=== PATIENT | female | born 1975 | race Caucasian/White ===

== ENCOUNTER 2019-01-23 12:30 | Observation (INO) | payer OTHER, SELFPAY ==
--- NOTE | 2019-01-03 17:39 | PCM.HP.BLA ---
History and Physical Date of Admission: 01/23/19 Pre-Op History and Physical ? HPI: The patient is a 43 year old female presenting for pre-operative visit. She is scheduled for?total vaginal hysterectomy, bilateral salpingectomy, uterosacral ligament fixation, mid urethral sling, possible posterior repair and cystoscopy, for?menorrhagia, dysmenorrhea, symptomatic uterovaginal prolapse, and stress urinary incontinence.???Procedure discussed along with risks, benefits and complications. ?Other alternatives discussed for management. Consent form signed??Yes.? PAST?MEDICAL?HISTORY PAST MEDICAL HISTORY Diagnosis Date ? Anxiety ? ? Chest pain ? ? Depression ? ? Ear infection ? ? Migraines ? ? PTSD (post-traumatic stress disorder) ? ? Sciatica ? ? UTI (lower urinary tract infection) ? ? ? PAST?SURGICAL?HISTORY PAST SURGICAL HISTORY Procedure Laterality Date ? APPENDECTOMY ? 1982 ? LIGATE FALLOPIAN TUBE ? 06/2007 ? MAMMO MAMMOGRAM ? 07/20/2010 ? PAST SURGICAL HISTORY OF ? 09/19 ? Micro Disectomy ??L5S1 ? PAST SURGICAL HISTORY OF Left 2013 ? Left wrist surgery ? REDUCTION OF LARGE BREAST ? 09/17 ? Bilateral ? ? CURRENT?MEDICATIONS Current Outpatient Medications Medication Sig Dispense Refill ? ARIPiprazole (ABILIFY) 2 mg tablet ? buPROPion XL (WELLBUTRIN XL) 300 mg 24 hr tablet Take 300 mg by mouth once daily. ? 0 ? traZODone (DESYREL) 50 mg tablet TAKE 1/2 TO 3 TABLET BY MOUTH AT BEDTIME NEEDED ? 0 ? cloNIDine HCl (CATAPRES) 0.1 mg tablet TAKE 1 TABLET BY MOUTH EVERYDAY AT BEDTIME ? 0 ? PROAIR HFA 90 mcg/actuation inhaler 2 (TWO) PUFF FOUR TIMES DAILY/PRN ? 1 ? buPROPion XL (WELLBUTRIN XL) 150 mg 24 hr tablet Take 150 mg by mouth once daily. ? 0 ? LORazepam (ATIVAN) 0.5 mg tab Take 0.5 mg by mouth twice daily as needed. ? 0 ? escitalopram oxalate (LEXAPRO) 20 mg tablet 1 1/2 TABLET ONCE A DAY ? 0 ? QUEtiapine (SEROQUEL) 50 mg tablet TAKE 1 TO 2 TABLET AT BEDTIME ? 0 ? No current facility-administered medications for this visit.? ? ALLERGIES:?Seasonal Allergies ? PERSONAL HISTORY:? 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 control/protection: Tubal Ligation ??Lifestyle ?Physical activity: ?Days per week: Not on file ?Minutes per session: Not on file ?Stress: Not on file ??Relationships ?Social connections: ?Talks on phone: Not on file ?Gets together: Not on file ?Attends yazdanism service: Not on file ?Active member of club or organization: Not on file ?Attends meetings of clubs or organizations: Not on file ?Relationship status: Not on file ?Intimate partner violence: ?Fear of current or ex partner: Not on file ?Emotionally abused: Not on file ?Physically abused: Not on file ?Forced sexual activity: Not on file ??Other Topics ?Concerns: ?Not on file ??Social History Narrative ?Not on file ? FAMILY HISTORY:? FAMILY?HISTORY FAMILY HISTORY Problem Relation Age of Onset ? Allergies Mother ? ? Anesthesia Mother ? ? Headache Mother ? ? Hypertension Father ? ? Heart Father ? ? Headache Daughter ? ? other (Pneumonia) Daughter ? ? Diabetes Maternal Grandmother ? ? Emphysema Maternal Grandmother ? ? Breast Cancer Maternal Grandmother ? ? Alcohol/Drug Paternal Grandfather ? ? Headache Daughter ? ? Allergies Sister ? ? Headache Sister ? ? Emphysema Maternal Grandfather ? ? Psychiatry Maternal Uncle ?Suicide ? Headache Son ? ? other (RSV) Son ? ? REVIEW OF SYMPTOMS: GENERAL: denies fevers or chills ENDOCRINOLOGY: has not been on steroids Cardiology : denies palpitations or chest pain Respiratory: denies SOB or cough Hematology: denies history of prolonged bleeding or easy bruising or VTE Allergy: Denies history of personal or family history of allergy to anesthesia ? ? PHYSICAL EXAMINATION: ? VITALS:?Last menstrual period 12/07/2018. ? GENERAL:??The patient is well nourished, well hydrated in no acute distress. ?, The patient is oriented to time, place, and person. NECK:?Supple. No lynphadenopathy, normal thyroid, no thyromegaly. LUNGS:?Clear to auscultation bilaterally. no wheezes, rhonchi or rales HEART:?Regular rate and rhythm, Normal heart sounds and No murmurs or gallops ? PELVIC US 12/05/18 results: Overall impression: Uterus anteverted. ?Normal size and contour. ?Endometrial thickness 12.7 mm. ?No gross endometrial lesions. ?There is a anterior fibroid intramural in location measuring 3.6 cm in the greatest dimension. Right and left ovaries appear normal no free fluid in the cul-de-sac. Follow- up: Follow-up as clinically indicated. Indication: Menorrhagia: Pain. History: . Last menstrual period: 11/15/2018. 21th day of cycle. Cycle length: ?27 days to 28 days. Obstetric History: Details on previous pregnancies: Living children >=37W: 3. Gynecological History: Bleeding: abnormal. Contraception: sterilization. Gynecological Ultrasonography: Uterus: anteverted. Size: Longitudinal 89 mm. Anterio- posterior 40 mm. Transverse 51 mm. Volume: 95.1 ?ml. Fibroids: Fibroid 1: Size: 34 mm x 27 mm x 36 mm. Type: anterior. Position: mid-uterus. Endometrium thickness total: 12.7 mm. Comment: Single anterior fibroid [id number] made it difficult to see much of the uterus. Right Ovary: normal. Visible. Outline: smooth. Morphology: normal morphology. Right Ovary size: 30 mm x 16 mm x 20 mm. Volume: 5.0 ml. Left Ovary: normal. Visible. Outline: smooth. Morphology: normal morphology. Left Ovary size: 30 mm x 18 mm x 22 mm. Volume: 6.2 ml. Cul de Sac / Pouch of Brad: no free fluid visible.? ? ? IMPRESSION:?Menorrhagia, dysmenorrhea, symptomatic uterovaginal prolapse, suspected adenomyosis, intramural uterine fibroids, stress urinary incontinence ? PLAN:???The risks/benefits/alternatives and personal involved for the planned?TVH, possible salpingectomy if tubal remnants are accessible, uterosacral ligament fixation, anterior repair, possible posterior repair,?mid urethral sling and cystoscopy?were reviewed with the patient. Her questions were answered to her satisfaction and she desires to proceed. ?Consent was signed. ?I reviewed with her postop instructions and expectations. ? ? I have reviewed and updated past medical and surgical history, medications and allergies? Johanny Vivas M.D.
[2019-01-23] VITALS (17 sets, daily range): BP systolic 93–142; BP diastolic 67–96; PULSE 70–96; RESP 16–18; TEMP 36.4–37; O2SAT 94–100; BMI 36.7
[2019-01-23 05:50] LABS: Internal QC Validated? YES +Cl - CLEAR BKGD; Pregnancy, Urine Negative Negative
[2019-01-23 06:21] LABS: Hematocrit 41.4 % (37-47); Hemoglobin 13.5 g/dL (12.0-15.0); Mean Corp Hgb Conc 32.6 g/dL (32-36); Mean Corpuscular Hgb 28.8 pg (27.0-32.0); Mean Corpuscular Volume 88.3 fL (81-99); Platelet Count 241 K/mm3 (150-450); RBC Distribution Width CV 13.2 % (11.6-14.6); RBC Distribution Width SD 42.9 fl (35.1-43.9); Red Blood Count 4.69 M/mm3 (4.2-5.4)
[2019-01-23] MEDS: dexAMETHasone 10 MG/ML Vial 8 MG IV (06:21)
[2019-01-23] MEDS: Magnesium Sulfate 4gm/100mL 4 GM/100 ML IV.SOLN. IV (06:22)
[2019-01-23] MEDS: Lactated Ringers 1,000 ML 100 ML IV (06:23)
[2019-01-23] MEDS: Enoxaparin 40 MG/0.4 ML Syringe SC (06:23)
[2019-01-23] MEDS: Gabapentin 600 MG Tablet PO (06:24)
[2019-01-23] MEDS: Celecoxib 200 MG Capsule 400 MG PO (06:24)
[2019-01-23] MEDS: Scopolamine 1mg/72hr Patch 1 PATCH TRANSDERM. (06:24)
[2019-01-23] MEDS: Acetaminophen 500 MG Tablet 1000 MG PO ×2 (06:24→18:04)
[2019-01-23] MEDS: Phenazopyridine 95 MG Tablet 190 MG PO (06:25)
[2019-01-23 06:56] LABS: Bedside Glucose 82 mg/dL (70-110)
[2019-01-23] MEDS: Lactated Ringers 1,000 ML 40 ML IV (07:00)
--- NOTE | 2019-01-23 07:30 | UT_PTH ---
PATIENT: MARQUITA WHATLEY I LOC: [facility] U#:[id number] AGE/SX: 43/F ROOM: [facility]315 RE01/23/[address]: Dr. Johanny Vivas MD : 1975 BED: 1 DIS: 01/24/2019 SPEC #: [id number] RECD: 01/23/19 10:45 STATUS: LEI REGeovany #: [id number] BUZZ: 01/23/19 07:[address]: Johanny Vivas DEPT: SURGICAL PATHOLOGY RECD BY: Ramsey Dickerson ENTERED: 01/23/19 11:11 SP TYPE: UTERUS OTHR DR: No Primary Care Phys Tissues: Uterus, NOS Procedures: Surgery Specimen Level V HEADER OPERATION: ERAS, vaginal hysterectomy, uterosacral ligament fix PRE-OP DIAGNOSIS: Menorrhagia, dysmenorrhea, symptomatic uterovaginal prolapse, suspected adenomyosis, intramural uterine fibroids, stress urinary incontinence TISSUE SUBMITTED: Uterus MICROSCOPIC DIAGNOSIS Uterus, hysterectomy: Cervix - squamous metaplasia, minimal chronic inflammation and nabothian cysts. Endometrium -secretory endometrium with focal cystic change. Myometrium - focal superficial adenomyosis. AM:anika 01/24/19 COMMENT Case has been reviewed in consultation with Dr. Barber who concurs with the above diagnosis. IDC:SJ MICROSCOPIC DESCRIPTION Slides are reviewed. GROSS DESCRIPTION Received in fixative is one container labeled with the patient's name and designated uterus. The specimen consists of a uterus with attached cervix measuring 11.5 x 5 x 3.7 cm and weighing 82 gm. The ectocervix is oval in contour and free of mass lesions. The endocervical canal measures 5 cm in length and is grossly unremarkable. The triangular endometrial cavity measures 3.5 x 3.5 cm. The velvety, light huitron endometrium measures up to 0.2 cm in thickness. The myometrium measures 2 cm in average thickness and is free of mass lesions. Computer Terminal Operator sections are submitted in six cassettes as follows: 1 - anterior cervix, 2 - posterior cervix, 3 & 4 - anterior uterine wall, 5 & 6 - posterior uterine wall. / AM:anika 01/23/19 TC:5 CPT: 46594
[2019-01-23] MEDS: Cefazolin 2 GM in 0.9% Normal Saline 100 ML IV (07:35)
--- NOTE | 2019-01-23 10:31 | PCM.OPRPT ---
Report of Operation Date of Procedure: 01/23/19 Pre-Operative Diagnosis: Menorrhagia, dysmenorrhea, symptomatic uterovaginal prolapse, stress urinary incontinence Post-Operative Diagnosis: Same Surgery/Procedure Performed:: Total vaginal hysterectomy with uterosacral ligament fixation, posterior repair, TVT mid urethral sling and cystoscopy Description of Surgical Findings:: Normal-appearing cervix and vagina. Uterus prolapsed to 1 cm above the introitus, small midline cystocele, grade 2 midline rectocele, normal appearing bladder. Ovaries and tubes were palpable and small but very high in the pelvis. social worker masters: Macey Huang social worker masters: higinio page Type of Anesthesia:: General Anesthesiologist: Juan Pablo Bhatia Special Medications: none Specimen's removed: Uterus and cervix Drains: Richardson Estimated Blood Loss (mL): 250 Fluids Replaced: 2400 Description of Procedure: The patient was taken to the operating room where she was prepped and draped in the normal sterile fashion in the dorsal lithotomy position. A weighted speculum was placed in the vagina and the anterior lip of the cervix was grasped with a Ruth clamp. The vaginal epithelium was infiltrated circumferentially around the cervix with [1% Xylocaine solution]. An incision was made [around the entire cervix] with a scalpel and the vaginal epithelium was dissected back with blunt and sharp dissection. The anterior colpotomy incision was made sharply. Entry into the anterior cul-de-sac was confirmed by visualization of the uterine fundus and bowel behind the uterus. [The posterior colpotomy was made with the Sanchez scissors. The posterior peritoneum was secured to the posterior vaginal cuff with an [id number] 0 Vicryl suture. The Oneyda retractor was placed in the posterior colpotomy incision.] The uterosacral ligaments were clamped with Chioma clamps transected and suture ligated on both sides and excellent hemostasis of the pedicles was noted. [The cardinal ligaments were clamped transected and suture ligated. The remainder of the cardinal ligament with the uterine arteries was clamped transected and suture ligated.] The utero-ovarian ligaments and tubes were clamped transected and suture ligated. The uterus was brought out through the colpotomy incision intact. Of note, even after clamping and cutting several pedicles, there was not a lot of significant descent of the uterus. An attempt was made to visualize the ovaries. I was unable to definitively visualize them. I did palpate them both and they were small and very high. I could visualize the tip of the left one and part of the left tube, but did not feel I could safely remove them because of how high they were in the pelvis. The decision was made to use leave the tubes and ovaries intact. The pedicles were all examined again and found to be hemostatic. At this point, the decision was made to proceed with the uterosacral ligament fixation. 2-0 PDS was placed to the posterior vaginal cuff, through the uterosacral ligament through the anterior cuff. An 0 Prolene was placed through the vaginal epithelium near the posterior cuff but not through the entire vaginal epithelium, reefed across the uterosacral ligament a little more cephalad and then through the vaginal epithelium anteriorly. The same procedure was performed on the contralateral side. A cystoscopy was then performed in the bladder both ureteral jets were noted without and then with tension on the uterosacral ligament fixation sutures. The utero sacral ligament fixation sutures were then tied down. The epithelium was closed over the midline and over the clean suture with interrupted 0 Vicryl [id number] sutures. Hemostasis was then noted the vaginal cuff. Good support was noted. The TVT procedure was then performed. Mid urethra was identified and the vaginal epithelium under it was grasped with Petrona clamps and the vaginal epithelium was infiltrated with 1% Xylocaine with dilute epinephrine solution. An incision was made under the mid urethra and dissected laterally under the pubic ramus on both sides. The midline at the symphysis pubis was marked and then 2 cm on each side was marked with a marking pen. I hydrodissected behind the symphysis with 30 cc of injectable saline on both sides of the midline. After guide was used to remove the bladder to the patient's left side and the right trocar was placed with the TVT trocar. This was walked up behind the symphysis aiming towards the ipsilateral shoulder until I exited in the skin 2 cm to left of the midline directly cephalad to the pubic ramus. The bladder was taken to the opposite side and the left trocar was advanced in a similar fashion behind the symphysis pubis and out through the skin where it had been marked with a marker. A cystoscopy was then performed at this time. The bladder was intact. There were no perforations. Both ureteral jets were noted. Cystoscopy was ended and the Richardson placed to straight drain. The sling was secured up against the mid urethra using the Metzenbaum scissors as a spacer so as not to impinge upon the urethra. The excess mesh was trimmed at the suprapubic incisions and those incisions were closed with skin glue. Some Erma was placed in the mid urethral incision and pressure was held for 2 minutes and then hemostasis was noted. The vaginal epithelium overlying the mesh was reapproximated with 2-0 Vicryl suture. Mesh was lying flat against the mid urethra and no buttonholing of the vagina in either vaginal fornix was noted. Skin incisions were closed with skin glue. Posterior repair was then performed. The vaginal epithelium at 4 and 7:00 was grasped with Allis clamps. The perineal skin and vaginal epithelium infiltrated with the lidocaine with epinephrine solution. An incision was made over the perineal body and a antonieta-shaped wedge was removed. The vaginal epithelium in the midline was then underlying with the Metzenbaum scissors and Allis clamps were used to secure it and grasped the sides. The vaginal epithelium was dissected off the underlying tissue with blunt and sharp dissection. The underlying tissue was imbricated with interrupted 0 Vicryl sutures. The perineal body was then reapproximated with 0 Vicryl sutures. Excess vaginal epithelium was removed. The vaginal epithelium was then reapproximated with 2-0 Vicryl suture in a running standard fashion by Dr. De Anda. Vagina was packed with iodoform gauze after a vaginal sweep was completed by Dr. De Anda. I performed the entire procedure with assistance other than as dictated above. No qualified residents are available for this case. The Richardson was left to straight drain. All sponge lap and needle counts were correct. Patient was awakened and taken to theher recovery room in stable condition. Grafts/Implants Used: TVT exact - Complications none - Admit VTE Documentation VTE Present on Admission: No VTE Mechan Device Prophylaxis: SCD's VTE Pharm Prophylaxis ordered?: Yes
[2019-01-23] MEDS: Ketorolac 30 MG/ML Syringe IV ×2 (13:00→17:59)
[2019-01-23] MEDS: oxyCODONE 5 MG Tablet PO ×2 (16:27→21:30)
[2019-01-23] MEDS: Lactated Ringers 1,000 ML 70 ML IV (17:00)
[2019-01-23] MEDS: ARIPiprazole 2 MG Tablet PO (21:30)
[2019-01-23] MEDS: traZODone 50 MG Tablet PO (21:30)
[2019-01-23] MEDS: Docusate Sodium 100 MG Capsule PO (21:30)
[2019-01-24] MEDS: Ketorolac 30 MG/ML Syringe IV ×3 (00:02→12:27)
[2019-01-24] MEDS: Acetaminophen 500 MG Tablet 1000 MG PO ×2 (00:02→05:57)
[2019-01-24 03:07] VITALS: BP 116/60; PULSE 91; RESP 18; TEMP 37.3; O2SAT 97
[2019-01-24] MEDS: Lactated Ringers 1,000 ML 70 ML IV (05:58)
[2019-01-24 06:24] LABS: Hematocrit 33.4 % (37-47); Hemoglobin 10.8 g/dL (12.0-15.0); Mean Corp Hgb Conc 32.3 g/dL (32-36); Mean Corpuscular Hgb 29.1 pg (27.0-32.0); Mean Platelet Vol. 10.2 fl (6.2-12.0); Platelet Count 221 K/mm3 (150-450); RBC Distribution Width CV 13.3 % (11.6-14.6); RBC Distribution Width SD 43.8 fl (35.1-43.9); Red Blood Count 3.71 M/mm3 (4.2-5.4); White Blood Count 12.9 K/mm3 (4.4-11.0)
[2019-01-24 06:37] VITALS: O2SAT 96
--- NOTE | 2019-01-24 08:49 | PCM.PN.OB ---
Subjective: Seen at bedside doing well. Patient denies any flatus at this time. Denies nausea, vomiting, chest pain or shortness of breath. Richardson catheter in place output is adequate. She reports good pain control. Rates pain 2 out of 10 at this time. Is tolerating a regular diet. - Physical Exam General: Alert, Oriented x3 Lungs: Clear to auscultation, Normal air movement Cardiovascular: Regular rate, Regular Rhythm Abdomen: Bowel Sounds Present, Soft, Non-Distended, Hypoactive Bowel Sounds Vital Signs Temp Pulse Resp BP Pulse Ox 99.1 F 91 18 116/60 96 01/24/19 03:07 01/24/19 03:07 01/24/19 03:07 01/24/19 03:07 01/24/19 06:37 Oxygen Flow Rate (L/min) 6 Oxygen Delivery Method Room Air Weight: 100.1 kg Body Mass Index (BMI) 36.7 Intake and Output for Last 24 Hours 01/22/19 01/23/19 01/24/19 23:59 23:59 23:59 Intake Total 4134.33 / 4134.33 1907.67 / 1907.67 Output Total 600 / 600 2800 / 2800 Balance 3534.33 / 3534.33 -892.33 / -892.33 Laboratory Tests Past 24 Hrs 01/24/19 05:57 WBC 12.9 H RBC 3.71 L Hgb 10.8 L Hct 33.4 L MCV 90.0 MCH 29.1 MCHC 32.3 RDW Std Deviation 43.8 RDW Coeff of Inessa 13.3 Plt Count 221 MPV 10.2 Medical Necessity - Tobacco Use Smoking Status: Never smoker Tobacco Use: Non-smoker Assessment/Plan Postop day #1 status post total vaginal hysterectomy, uterosacral ligament fixation, TVT sling, cystoscopy, posterior repair Routine care Pain management DC Richardson Voiding trial Monitor vaginal bleeding DC home after able to void. If not able to void after 6 hours will go home with a Richardson to leg bag.
--- NOTE | 2019-01-24 08:53 | DCINST_ITS ---
Discharge Diet: No Restrictions Discharge Activity: Return to Normal Activity, May Not Drive - while taking narcotic pain medications., May Shower May resume sexual activity in: 6-8 weeks Call your doctor if your incision/area has: Continuous Slow Oozing, Sudden Increased Bleeding, Increased Pain/ Swelling, Increased Redness, Foul Smelling Discharge Call your doctor if you observe: Fever of 101 or Higher, Inability to urinate, Inability to have a bowel movement, Using more than one pad per hour Allergies/Adverse Reactions: Allergies pregabalin [From Lyrica] Allergy (Verified 01/23/19 05:59) high bp Sulfa (Sulfonamide Antibiotics) Allergy (Verified 01/23/19 05:59) Hives plastic tape Adverse Reaction (Uncoded 01/16/19 14:36) blisters Medications to take at Discharge Albuterol IH (ProAir) [Proair Hfa] 1 - 2 puff INHALATION Q6H PRN PRN 01/16/19 Aripiprazole [Abilify] 2 mg PO QHS 01/16/19 Bupropion HCl [Wellbutrin Xl] 450 mg PO DAILY 01/16/19 Escitalopram Oxalate [Lexapro] 10 mg PO DAILY 01/16/19 Lorazepam [Ativan] 0.5 mg PO BID PRN PRN 01/16/19 Quetiapine Fumarate [Seroquel Xr] 50 mg PO PRN PRN 01/16/19 traZODone [Desyrel] 50 mg PO QHS 01/16/19 Docusate Sodium [Colace] 100 mg PO BID capsule 01/24/19 Insulin Lispro [Humalog KwikPen] 0 unit SC Q4H PRN PRN insuln.pen 01/24/19 Primary Care Physician: Care Physician,No Primary [Primary Care Provider] - Test Results: Test results from this visit will be discussed in further detail at your follow- up appointment, if applicable. Please Follow Up With: Johanny Vvias MD When: as scheduled
[2019-01-24 09:00] VITALS: BP 116/66; PULSE 89; RESP 18; TEMP 37.2; O2SAT 99
[2019-01-24 10:00] VITALS: BP 121/83; PULSE 91; RESP 20; TEMP 37; O2SAT 100
[2019-01-24] MEDS: Escitalopram Oxalate 10 MG Tablet PO (10:12)
[2019-01-24] MEDS: Docusate Sodium 100 MG Capsule PO (10:12)
[2019-01-24] MEDS: buPROPion (XL) 150 MG TABLET.XL 450 MG PO (10:13)
[2019-01-24] MEDS: LORazepam 0.5 MG Tablet PO (10:21)
--- NOTE | 2019-01-24 12:10 | PCM.PN.BLA ---
Progress Note Came to evaluate patient for vaginal bleeding. Nursing reports that she has had 2 gushes of bright red bleeding. Patient states she notices the bleeding when she is coughing or moving around. I evaluated the patient with speculum at bedside good visualization of the vaginal cuff. There were clots that were evacuated from the vagina. Once he evacuated the clots visualization was excellent. Upon Valsalva and coughing there was no active bleeding appreciated. There is no pooling of blood. The cuff is intact. The anterior vaginal tissue where the sling was placed was intact no signs of hematoma. The posterior repair was intact no active bleeding. At this time I had the patient get up walk around the room continue to cough. She said she felt more of a gush. I reexamined her put the speculum back and there was no active bleeding. There were no clots in the vagina. Patient did have leaking urine upon coughing. Patient thought that that was also a gush of blood I reassured her that that was urine. At this time I think I will continue to monitor the patient its possible that she had clots that were stuck in the vaginal cuff area and were expelled during coughing episodes. If the bleeding persists I discussed with the patient that I may need to take her back to the operating room for exam under anesthesia and possible repair but at this time I do not see anything active. Keep her n.p.o. status at this time patient states otherwise she feels well. She has voided twice without difficulty. Her pain is well controlled. If Bleeding resolves she will likely be discharged later this afternoon.
[2019-01-24] MEDS: 0.9% NaCl Peripheral Flush Adult/Peds IV (12:28)
[2019-01-24 13:13] LABS: Hematocrit 32.1 % (37-47); Hemoglobin 10.4 g/dL (12.0-15.0); Mean Corp Hgb Conc 32.4 g/dL (32-36); Mean Corpuscular Volume 89.4 fL (81-99); Mean Platelet Vol. 10.1 fl (6.2-12.0); Platelet Count 217 K/mm3 (150-450); RBC Distribution Width CV 13.5 % (11.6-14.6); RBC Distribution Width SD 44.4 fl (35.1-43.9); Red Blood Count 3.59 M/mm3 (4.2-5.4); White Blood Count 12.2 K/mm3 (4.4-11.0)
[2019-01-24 14:58] VITALS: BP 129/85; PULSE 98; RESP 18; TEMP 36.8; O2SAT 98
== END 2019-01-24 15:02 | disposition home or self-care (01) ==
LOC: SDC 14:49
PROVIDERS: Obstetrics & Gynecology; Admitting Provider Obstetrics & Gynecology; Referring Provider Obstetrics & Gynecology; Visit Provider Obstetrics & Gynecology
PROC: (CPT 58260; principal; 2019-01-23 07:10)
DX: N81.4 Uterovaginal prolapse, unspecified (principal); N88.8 Other specified noninflammatory disorders of cervix uteri; N39.3 Stress incontinence (female) (male); N94.6 Dysmenorrhea, unspecified; D25.1 Intramural leiomyoma of uterus; N92.0 Excessive and frequent menstruation with regular cycle; F41.9 Anxiety disorder, unspecified; F32.9 Major depressive disorder, single episode, unspecified; Z79.899 Other long term (current) drug therapy; J45.909 Unspecified asthma, uncomplicated; Z87.891 Personal history of nicotine dependence
CPT/HCPCS: 57250; 57288; 58260; 36415; 81025; 82962; 85027; 86850; 86900; 86901; 88307; 96374; 96376; 99218; J7120; A4216; G0378; G0379; J2405

== ENCOUNTER 2019-01-31 23:33 | Observation (INO) | payer OTHER, SELFPAY ==
[2019-01-23 06:01] VITALS: BMI 36.7
[2019-01-31 23:35] VITALS: BP 112/75; PULSE 102; RESP 16; TEMP 36.7; O2SAT 98; BMI 35.9
--- NOTE | 2019-02-01 00:27 | ED.VIS.GEN ---
History of Present Illness Chief Complaint: Vag Bleeding Narrative: This patient is a 43-year-old female who presents with vaginal bleeding. She is about 1 week postop total hysterectomy. On postop day 1 she did have heavy vaginal bleeding with clots. She states that they were able to get this controlled and her bleeding was doing well until yesterday. She was seen in the office both yesterday and today. It sounds like she may have a cautery. They felt the bleeding was coming from the sutures of the vaginal cuff. She also states she believes some type of temperature was used. Tonight her bleeding became heavy again. She checked her blood pressure at home which was borderline hypotensive with a systolic of 92 and a 96. She was slightly tachycardic in the 90s. She spoke to her low altitude air defense officer again who advised her to come here to the emergency department. She states she felt dizzy as if she may pass out. No chest pain no shortness of breath no known coagulopathies. She did have one episode of nonbloody nonbilious emesis today. Past Medical History - Allergies and Home Meds Allergies/Adverse Reactions: Allergies pregabalin [From Lyrica] Allergy (Verified 01/31/19 23:38) high bp Sulfa (Sulfonamide Antibiotics) Allergy (Verified 01/31/19 23:38) Hives plastic tape Adverse Reaction (Uncoded 01/31/19 23:38) blisters Primary Care Physician: Johanny Vivas MD [Primary Care Provider] - Surgical History: hysterectomy Smoking Status: Never smoker Review of Systems All systems negative except as indicated General: Denies: Fever Cardiovascular: Reports: - - Near syncope. Denies: Chest pain Respiratory: Denies: Dyspnea Gastrointestinal: Reports: Nausea, Vomiting Genitourinary: Reports: - - Heavy vaginal bleeding with clots Physical Exam Vital Signs/Narrative: Vital Signs Temp Pulse Resp BP Pulse Ox 01/31/19 23:35 98.0 F 102 H 16 112/75 98 Inital Vital Signs reviewed: Yes General: Well nourished, Well developed Head: Normocephalic, Atraumatic Eyes: EOMI ENT: Moist mucous membranes Neck: Supple Cardiovascular: Regular rate, Regular rhythm Respiratory: No distress, CTA bilaterally Abdomen: Soft, Tender - Mild lower abdominal tenderness Skin: Normal color Neurological: Alert Psychological: Normal affect Diagnostic/Tx/Re-eval Laboratory Results 02/01/19 02/01/19 02/01/19 00:50 00:50 00:50 WBC 13.0 H RBC 3.55 L Hgb 10.4 L Hct 31.9 L MCV 89.9 MCH 29.3 MCHC 32.6 RDW Std Deviation 42.4 RDW Coeff of Inessa 13.0 Plt Count 382 MPV 9.6 Immature Gran % (Auto) 0.900 Neut % (Auto) 65.6 Lymph % (Auto) 23.0 [place] % (Auto) 7.3 Eos % (Auto) 2.7 Baso % (Auto) 0.5 Absolute Neuts (auto) 8.6 H Absolute Lymphs (auto) 3.00 Nucleated RBC % 0 PT 13.2 INR 1.0 Sodium 139 Potassium 4.0 Chloride 105 Carbon Dioxide 28.0 Anion Gap 6 BUN 10 Creatinine 0.84 Estim Creat Clear Calc 76.90 Est GFR (MDRD) Af Amer 94 Est GFR (MDRD) Non-Af 78 BUN/Creatinine Ratio 11.8 Glucose 112 H Calcium 8.7 - Medical Decision Making On pelvic examination the vaginal cuff is intact. She has mild oozing but no significant bleeding at this time. There was a small old clot roughly the size of a quarter. Hemoglobin is stable at 10.4 which is the same value was yesterday. However orthostatic vital signs are positive with heart rate going up to 120 on standing and she was symptomatic. I spoke to Dr. Vivas. Patient be admitted for observation serial hemoglobins. Dr. Vivas did ask that I pack. 3 4x4 gauze sponges were packed into the vaginal vault. Patient admitted. ED Disposition - Plan for ED Patient: Disposition: [facility] Care [facility] Diagnosis: Postoperative vaginal bleeding Referrals: Johanny Vivas MD [Primary Care Provider] -
[2019-02-01 01:01] LABS: Absolute Neutrophil Count 8.6 X10^3/uL (2.0-7.7); Basophil# 0.07 X10^3/uL; Basophil% 0.5 % (0-1); Eosinophil# 0.35 X10^3/uL; Eosinophils% 2.7 % (0-5); Hematocrit 31.9 % (37-47); Hemoglobin 10.4 g/dL (12.0-15.0); Mean Corp Hgb Conc 32.6 g/dL (32-36); Mean Corpuscular Hgb 29.3 pg (27.0-32.0); Mean Corpuscular Volume 89.9 fL (81-99); Mean Platelet Vol. 9.6 fl (6.2-12.0); Monocyte# 0.95 X10^3/uL; Monocyte% 7.3 % (0-10); NRBC Flagged by Analyzer 0 % (0-5); Neutrophil # 8.55 X10^3/uL (2.7-7.7); Neutrophil % 65.6 % (47-70); Platelet Count 382 K/mm3 (150-450); RBC Distribution Width SD 42.4 fl (35.1-43.9); Red Blood Count 3.55 M/mm3 (4.2-5.4)
[2019-02-01 01:06] VITALS: BP 100/80; BP 107/62; BP 111/75; PULSE 121; PULSE 92; PULSE 94
[2019-02-01 01:09] LABS: Prothrombin Time (Protime)PT. 13.2 SECONDS (11.7-14.9)
[2019-02-01 01:14] LABS: Anion Gap 6 (5-15); BUN 10 mg/dL (7-18); BUN/Creat Ratio 11.8 RATIO (10-20); Calcium,Total 8.7 mg/dL (8.5-10.1); Chloride 105 mmol/L (98-107); Creatinine, Serum 0.84 mg/dL (0.55-1.02); EST Glomerular Filtration Rate 78 mL/min (>60); Est Glom Filt Rate - Afr Amer 94 mL/min (>60); Glucose 112 mg/dL (74-106); Sodium Level 139 mmol/L (136-145)
[2019-02-01] MEDS: 0.9% Normal Saline 1,000 ML 999 ML IV (01:25)
[2019-02-01 03:04] VITALS: BMI 36.4
[2019-02-01 03:10] VITALS: BP 121/62; PULSE 72; RESP 18; TEMP 37.2; O2SAT 99
[2019-02-01] MEDS: Lactated Ringers 1,000 ML 100 ML IV (03:54)
[2019-02-01] MEDS: 0.9% NaCl Peripheral Flush Adult/Peds IV ×2 (06:29→10:09)
[2019-02-01] MEDS: Acetaminophen 500 MG Tablet 1000 MG PO (06:32)
[2019-02-01 07:09] LABS: Hematocrit 26.1 % (37-47); Hemoglobin 8.3 g/dL (12.0-15.0); Mean Corp Hgb Conc 31.8 g/dL (32-36); Mean Corpuscular Hgb 28.6 pg (27.0-32.0); Mean Platelet Vol. 9.8 fl (6.2-12.0); Platelet Count 284 K/mm3 (150-450); RBC Distribution Width CV 13.2 % (11.6-14.6); RBC Distribution Width SD 43.2 fl (35.1-43.9); White Blood Count 9.5 K/mm3 (4.4-11.0)
[2019-02-01 07:28] VITALS: BP 110/63; PULSE 78; RESP 18; TEMP 36.8; O2SAT 97
--- NOTE | 2019-02-01 09:18 | CT_ITS ---
STUDY: CT PELVIS WITH CONTRAST REASON FOR EXAM: Female, 43 years old. Vaginal bleeding. One oblique post vaginal hysterectomy RADIATION DOSAGE (If Supplied By Facility): CTDIvol = ( 31.04 ) mGy, DLP = ( 1737.75 ) mGycm TECHNIQUE: Transaxial imaging of the pelvis was performed without oral contrast. 100mL IV Isovue 300 was administered intravenously. Delayed sequence was also performed Individualized dose optimization techniques were used for this CT. COMPARISON: None. FINDINGS: Normal urinary bladder. No evidence of bladder leak. Normal visualized small intestine. Normal visualized colon. There is no pelvic fluid. There is no pelvic lymphadenopathy or mass lesion. Normal visualized pelvic arteries. No evidence of active hemorrhage or hematoma. Patient is status post hysterectomy. There is some air in the vaginal cuff, likely within normal limits. Normal abdominal wall. Normal osseous structures. Only trace pelvic free fluid. CT/Pelvis WITH IV Contrast IMPRESSION: Status post hysterectomy. No evidence of active hemorrhage or hematoma. Delayed sequences demonstrate no evidence of bladder leak. Residual air in the vaginal cuff Electronically Signed: Ulysses Patel DO at 11:21 EDT Tel , Service support ,
--- NOTE | 2019-02-01 11:11 | DCINST_ITS ---
Discharge Diet: No Restrictions Discharge Activity: May Drive, May Shower, - - no tub baths May resume sexual activity in: 6-8 weeks, 6 weeks Weight Bearing Status: Full weight bearing Lifting Restrictions: 15 lbs Call your doctor if your incision/area has: Continuous Slow Oozing, Sudden Increased Bleeding, Increased Pain/ Swelling, Increased Redness, Foul Smelling Discharge Call your doctor if you observe: Fever of 101 or Higher, Inability to urinate, Inability to have a bowel movement, Using more than one pad per hour Remove Dressing in (days):: 1 - 1-2 days remove the vaginal packing Cleanse incision/area with: Soap & Water Additional Instructions: start an iron supplement every other day for 1 month Allergies/Adverse Reactions: Allergies pregabalin [From Lyrica] Allergy (Verified 01/31/19 23:38) high bp Sulfa (Sulfonamide Antibiotics) Allergy (Verified 01/31/19 23:38) Hives plastic tape Adverse Reaction (Uncoded 01/31/19 23:38) blisters Medications to take at Discharge Albuterol IH (ProAir) [Proair Hfa] 1 - 2 puff INHALATION Q6H PRN PRN 01/16/19 Aripiprazole [Abilify] 2 mg PO QHS 01/16/19 Bupropion HCl [Wellbutrin Xl] 450 mg PO DAILY 01/16/19 Escitalopram Oxalate [Lexapro] 20 mg PO DAILY 01/16/19 Lorazepam [Ativan] 0.5 mg PO BID PRN PRN 01/16/19 Quetiapine Fumarate [Seroquel Xr] 50 mg PO PRN PRN 01/16/19 traZODone [Desyrel] 50 mg PO QHS 01/16/19 Clonidine HCl [Catapres] 0.1 mg PO QHS 02/01/19 Primary Care Physician: Johanny Vivas MD [Primary Care Provider] - Test Results: Test results from this visit will be discussed in further detail at your follow- up appointment, if applicable. Please Follow Up With: Johanny Vivas MD - [phone] When: as scheduled next week or as needed
--- NOTE | 2019-02-01 11:14 | PCM.HP.BLA ---
History and Physical Date of Admission: 02/01/19 43-year-old female who is postoperative day #9 today from total vaginal hysterectomy with posterior repair, TVT sling, uterosacral ligament fixation and cystoscopy. Patient's had some intermittent vaginal bleeding throughout the week. I saw her in the office yesterday, and she had some bleeding, I had observed her in the office for 15 minutes without any active bleeding being noted. I placed some packing in the patient, and she went home and said she woke up from a nap and started coughing and passed the packing and some bright red blood. In the middle the night, she had continued to have bleeding and said she passed several larger clots than she had before. In addition she began to feel weak and lightheaded. She called me and I instructed her to go the emergency room. She was orthostatic in the emergency room and the decision was made to observe her overnight. They did not observe any active bleeding in the emergency room but she did have some clots in the vault. She denies any significant increase in pain. She denies any fevers or chills. Systems: General no fevers or chills, some fatigue Cardiac: No chest pain, some palpitations Respiratory: No chest pain or shortness of breath Heme: No history of prolonged bleeding or easy bruising For full history and physical, see her past medical and surgical history from her history and physical that was done for her surgery last week. Physical exam: Vital signs reviewed. General: Patient is awake, alert, no acute distress Skin is warm dry and intact, pale Abdomen: Soft, nontender, nondistended. Suprapubic area has some ecchymosis that is resolving, there is no erythema over the suprapubic wounds, and they are well-healed. Vagina: Sponges removed, minimal inguina's drainage on the sponges that were placed last night in the ER, they are less than 25% saturated. The cuff is intact, there is no erythema or malodor. There is no palpable fullness or increased tenderness. The suburethral and posterior colporrhaphy sutures and incisions are intact and hemostatic. Vagina was packed with three 4 x 4 sponges that were tied together. Some Surgicel was placed at the vaginal cuff and over the incisions and on the packing. Part of the third 4 x 4 was trimmed with scissors so that the entire packing was in her vagina. CT scan was done, preliminary review revealed no evidence of intraperitoneal hemorrhage or significant hematoma. Assessment and plan: 43-year-old female postoperative day #9 status post vaginal hysterectomy, posterior colporrhaphy, TVT, uterosacral ligament fixation. Delayed postoperative hemorrhage. Mild acute blood loss anemia due to the hemorrhage. Patient is tolerating the anemia well after hydration. Will discharge her home today, hemostasis overnight as noted of the vaginal cuff. Packing was replaced as a security measure to prevent further bleeding. No active bleeding was ever identified in the emergency room or in the office to place any sutures. There is no evidence of intraperitoneal bleed. Patient can remove the packing in 24 to 48 hours. Follow-up in the office as scheduled, or as needed. Return if any active bright red bleeding or clots. Patient states understanding and agreement with plan. Otherwise resume normal home medications.
[2019-02-01 12:32] VITALS: BP 102/66; PULSE 81; RESP 16; TEMP 37.2; O2SAT 97
== END 2019-02-01 12:44 | disposition home or self-care (01) ==
LOC: ED 02-01 02:03 → MS3 02-01 03:55
PROVIDERS: Admitting Provider Obstetrics & Gynecology; Emergency Provider Emergency Medicine; Family Provider Obstetrics & Gynecology; PCP Obstetrics & Gynecology; Visit Provider Obstetrics & Gynecology
DX: N99.820 Postprocedural hemorrhage of a genitourinary system organ or structure following a genitourinary system procedure (principal); Y83.8 Other surgical procedures as the cause of abnormal reaction of the patient, or of later complication, without mention of misadventure at the time of the procedure; D62 Acute posthemorrhagic anemia
CPT/HCPCS: 36415; 72193; 80048; 85025; 85027; 85610; 86850; 86900; 86901; 96360; 96361; 99218; 99285; J7030; J7120; Q9967; A4216; G0378

== ENCOUNTER 2020-12-06 11:37 | Emergency (ER) | payer OTHER, SELFPAY ==
[2019-02-01 03:04] VITALS: BMI 36.4
[2020-12-06 11:38] VITALS: BP 126/82; PULSE 86; RESP 17; TEMP 36.6; O2SAT 96; BMI 38.2
--- NOTE | 2020-12-06 12:29 | MRI_ITS ---
STUDY: MRI LUMBAR SPINE WITHOUT CONTRAST REASON FOR EXAM: Female, 45 years old. pain, leg weakness -- surgery 12-13 yrs ago, left leg radiculopathy TECHNIQUE: Standardized fat and water weighted pulse sequences were obtained in the sagittal and axial planes. COMPARISON: None FINDINGS: T12-L1: Normal endplates. Normal disc height, hydration and morphology. Normal bilateral facet joints. Normal central canal and bilateral lateral recesses. Normal bilateral intervertebral neural foramina. Normal lumbar lordosis. There is no substantial scoliosis. Normal conus medullaris that terminates at the L1. L1-2: Normal endplates. Normal disc height, hydration and morphology. Normal bilateral facet joints. Normal central canal and bilateral lateral recesses. Normal bilateral intervertebral neural foramina. L2-3: Normal endplates. Normal disc height, hydration and morphology. Normal bilateral facet joints. Normal central canal and bilateral lateral recesses. Normal bilateral intervertebral neural foramina. L3-4: Normal endplates. Normal disc height, hydration and morphology. Normal bilateral facet joints. Normal central canal and bilateral lateral recesses. Normal bilateral intervertebral neural foramina. L4-5: Disc desiccation but no disc protrusion, spinal stenosis, or neural foraminal stenosis. L5-S1: Mild bilobed disc osteophyte complex produces mild spinal stenosis but moderate bilateral neural foraminal stenosis with abutment of the L5 nerve roots bilaterally. Associated MODIC type II endplate changes. Normal visualized sacral ala. Large amount of friction related edema in the posterior subcutaneous fat. MRI/Spine Lumbar (Routine) IMPRESSION: Mild focal degenerative disc disease at L5/S1 as described above. Electronically Signed: Ivan Yeager MD at 15:25 EDT Tel , Service support ,
--- NOTE | 2020-12-06 12:31 | EDS_ITS ---
HPI History of Present Illness Chief Complaint: Back Informant: patient Onset/Context/Timing Onset: Weeks (2 weeks) Timing: Continuous Quality: Aching and Throbbing Current Severity: Moderate Maximum Severity: Severe Worsened by: improves with Movement Associated Symptoms Associated Symptoms: Numbness, Tingling and Radiation to Left Leg Narrative Narrative: Patient presents with back pain with radiation to the left leg x2 weeks. No specific injury at onset. She states her left leg feels partially numb. She did have an episode of loss of bladder control last week. She was seen by PCP today and sent to the ER for MRI. No fever or chills. She did have back surgery 12 to 13 years ago. [facility] Medical History Back pain Home Medications albuterol sulfate 1 - 2 puff INHALATION Q6H PRN PRN 01/16/19 [History Last Taken Unknown] aripiprazole 2 mg PO QHS 01/16/19 [History Last Taken Unknown] bupropion HCl 450 mg PO DAILY 01/16/19 [History Last Taken Unknown] escitalopram oxalate 20 mg PO DAILY 01/16/19 [History Last Taken Unknown] lorazepam 0.5 mg PO BID PRN PRN 01/16/19 [History Last Taken 01/23/19] quetiapine 50 mg PO PRN PRN 01/16/19 [History Last Taken Unknown] trazodone 50 mg PO QHS 01/16/19 [History Last Taken Unknown] clonidine HCl 0.1 mg PO QHS 02/01/19 [History Last Taken Unknown] naproxen [Naprosyn] 500 mg PO BID PRN #20 tab 12/06/20 [Rx Last Taken Unknown] oxycodone-acetaminophen [Percocet] 1 tab PO Q6H PRN 3 Days #10 tab 12/06/20 [Rx Last Taken Unknown] prednisone 60 mg PO DAILY #15 tab 12/06/20 [Rx Last Taken Unknown] Allergy/AdvReac Type Severity Reaction Status Date / Time pregabalin [From Lyrica] Allergy high bp Verified 12/06/20 11:38 Sulfa (Sulfonamide Allergy Hives Verified 12/06/20 11:38 Antibiotics) plastic tape AdvReac blisters Uncoded 12/06/20 11:38 Social History Smoking Status: Never smoker ROS ROS ED Constitutional Constitutional ED: Denies chills or fever(s) Eyes Eyes: Denies change in vision ENT ENT ED: Denies sore throat Cardiovascular Cardiovascular: Denies chest pain Respiratory/Chest Respiratory/Chest: Denies cough or dyspnea Gastrointestinal Gastrointestinal: Denies abdominal pain, diarrhea, nausea or vomiting Genitourinary Genitourinary ED: Denies dysuria Musculoskeletal Musculoskeletal: Reports back pain Integumentary Denies rash Neurologic Neurologic: Reports paresthesias LLE and weakness; Denies headache(s) Psychiatric Psychiatric: Denies anxiety or depression Endocrine Endocrinology: Denies polydipsia or polyuria Allergic/Immunologic Allergic/Immunologic ED: Denies urticaria EXAM Physical Exam Const Vital Signs: 12/06/20 11:38 12/06/20 15:54 Temperature 98 F Temperature Source Temporal Pulse Rate 86 77 Respiratory Rate 17 16 Blood Pressure 126/82 H 130/83 H Blood Pressure Mean 96 98 Pulse Ox 96 94 Oxygen Delivery Method Room Air Room Air Positive well nourished and well developed General Appearance ED: well developed HEENT Reports normocephalic and head/scalp atraumatic Eyes PERRL and EOMs intact bilaterally Neck supple Chest Wall inspection of chest normal and palpation of chest normal Resp normal respiratory effort and clear to auscultation bilaterally Cardio regular rate and regular rhythm GI normal to inspection, nondistended, normoactive bowel sounds Palpation: soft Back/Spine no CVA tenderness Back/Spine Narrative: No midline thoracic or lumbar tenderness. Patient reports numbness over her lower back on palpation. Extremity normal to inspection Extremity Narrative: Left lower extremity weakness noted when compared to right. She has weakness with foot flexion extension as well as knee flexion and extension. Strong distal pulses are noted. Decreased sensation noted to the left leg. Neuro oriented x3 and no sensory deficits noted Sensorium / Orientation: alert Motor Exam: strength 5/5 throughout Psych mental status grossly normal Skin no rashes or lesions noted MDM MDM MDM Narrative Medical decision making narrative: Patient was given 0.5 mg Dilaudid for pain control. MRI of the lumbar spine is ordered. Radiography Diagnostic Testing: Radiology Impression Lumbar Spine MRI 12/06/20 12:29 IMPRESSION: Mild focal degenerative disc disease at L5/S1 as described above. Electronically Signed: Ivan Yeager MD at 15:25 EDT Tel , Service support , Treatment and Re-Evaluation Comments:: On repeat evaluation patient's pain is improved to a 2 out of 10. Test results are discussed with her. We did review the MRI report together. She does have evidence of spinal stenosis and neural foraminal stenosis. Meet yepez will be referred to Dr. Fernando locally for spine evaluation. She will check her insurance to see if he is covered. In the meantime patient will be given analgesics for home. Discharge Plan Triage Chief Complaint: Back ED Provider: Yocasta Murphy Dx/Rx/DC Orders Clinical Impression: Acute back pain with radiculopathy Instructions: Understanding Lumbar Radiculopathy Prescriptions: New naproxen [Naprosyn] 500 mg tablet 500 mg PO BID PRN (Reason: pain) Qty: 20 RF: 0 prednisone 20 mg tablet 60 mg PO DAILY Qty: 15 RF: 0 oxycodone-acetaminophen [Percocet] 5-325 mg tablet 1 tab PO Q6H PRN (Reason: pain) 3 Days Qty: 10 RF: 0 No Action trazodone 50 MG tablet 50 mg PO QHS RF: 0 lorazepam 0.5 MG tablet 0.5 mg PO BID PRN PRN (Reason: Anxiety) RF: 0 escitalopram oxalate 20 MG tablet 20 mg PO DAILY RF: 0 bupropion HCl 150 MG tablet extended release 24 hr 450 mg PO DAILY RF: 0 aripiprazole 2 MG tablet 2 mg PO QHS RF: 0 quetiapine 50 MG tablet extended release 24 hr 50 mg PO PRN PRN (Reason: Sleep) RF: 0 albuterol sulfate 1 PUFF inhaler 1 - 2 puff inhalation Q6H PRN PRN (Reason: Sob &/Or Wheezing) RF: 0 clonidine HCl 0.1 MG tablet 0.1 mg PO QHS RF: 0 Primary Care Provider: Brigette Martin NP Referrals: Juan Fernando DO [STAFF PHYSICIAN] - As soon as possible Brigette Martin NP, FRONT DESK ASSISTANT-C [Primary Care Provider] - Disposition Disposition: Home, Self Care
[2020-12-06] MEDS: HYDROmorphone 1 MG/ML Syringe 0.5 MG IV (12:55)
[2020-12-06] MEDS: Ondansetron 4 MG/2 ML Vial IV (12:55)
[2020-12-06 15:54] VITALS: BP 130/83; PULSE 77; RESP 16; O2SAT 94
[2020-12-06 16:22] VITALS: BP 130/83; PULSE 88; RESP 17; O2SAT 97
== END 2020-12-06 16:23 | disposition home or self-care (01) ==
PROVIDERS: Emergency Provider Emergency Medicine; PCP Registered Nurse
DX: M54.16 Radiculopathy, lumbar region (principal); M54.9 Dorsalgia, unspecified; M48.061 Spinal stenosis, lumbar region without neurogenic claudication
CPT/HCPCS: 72148; 96374; 96375; 99283; A4216; J2405

== ENCOUNTER 2021-02-01 05:24 | Inpatient (IN) | payer OTHER, SELFPAY ==
--- NOTE | 2021-01-21 08:18 | EKG12_ITS ---
Test Reason : PREOP Blood Pressure : / mmHG Vent. Rate : 070 BPM Atrial Rate : 070 BPM P-R Int : 132 ms QRS Dur : 086 ms QT Int : 380 ms P-R-T Axes : 038 045 043 degrees QTc Int : 410 ms Normal sinus rhythm Normal ECG Confirmed by MAICO CARR, YENY ([id number]), production editor TAYLOR MACK ([id number]) on 01/24/2021 2:09:24 PM Referred By: JESUSITA Confirmed By:YENY NINA MD
[2021-01-21 08:20] LABS: Absolute Lymphocyte Count 2.12 X10^3/uL (0.83-4.51); Absolute Neutrophil Count 3.6 X10^3/uL (2.0-7.7); Basophil# 0.04 X10^3/uL; Basophil% 0.6 % (0-1); Eosinophil# 0.28 X10^3/uL; Eosinophils% 4.3 % (0-5); Hemoglobin 13.9 g/dL (12.0-15.0); Lymphocyte # 2.12 X10^3/ul (0.83-4.51); Lymphocyte % 32.7 % (19-41); Mean Corp Hgb Conc 32.3 g/dL (32-36); Mean Corpuscular Hgb 28.6 pg (27.0-32.0); Mean Corpuscular Volume 88.5 fL (81-99); Monocyte# 0.43 X10^3/uL; Monocyte% 6.6 % (0-10); NRBC Flagged by Analyzer 0 % (0-5); Neutrophil % 55.6 % (47-70); Platelet Count 254 K/mm3 (150-450); Red Blood Count 4.86 M/mm3 (4.2-5.4); White Blood Count 6.5 K/mm3 (4.4-11.0)
[2021-01-21 08:29] LABS: Prothrombin Time (Protime)PT. 12.6 SECONDS (11.7-14.9)
[2021-01-21 08:30] LABS: Partial Thromboplast Time 29.1 Seconds (24.1-36.2)
[2021-01-21 08:50] LABS: Anion Gap 5 (5-15); BUN 11 mg/dL (7-18); BUN/Creat Ratio 14.3 RATIO (10-20); Calcium,Total 9.1 mg/dL (8.5-10.1); Chloride 104 mmol/L (98-107); Creatinine, Serum 0.77 mg/dL (0.55-1.02); EST Glomerular Filtration Rate 86 mL/min (>60); Est Glom Filt Rate - Afr Amer 104 mL/min (>60); Glucose 103 mg/dL (74-106); Sodium Level 139 mmol/L (136-145)
[2021-01-21 09:02] LABS: AST(SGOT) 22 U/L (15-37); Alanine Aminotransfer ALT/SGPT 59 U/L (13-56); Albumin, Serum 3.3 g/dL (3.2-5.0); Alkaline Phosphatase 75 U/L (45-117); Globulin 3.9 g/dL (2.2-4.2); Magnesium 2.2 mg/dL (1.6-2.6); Protein, Total 7.2 g/dL (6.4-8.2)
[2021-01-21 10:16] LABS: HIV - WCH Non-Reactive (Nonreactive); Hepatitis B Surface Antibody Reactive; Hepatitis C Antibody Non-Reactive (Nonreactive)
[2021-01-22 13:59] LABS: Hepatitis A AB, Total Negative (Negative)
--- NOTE | 2021-01-26 09:13 | HP.PCM_ITS ---
History and Physical Date of Admission: 02/01/21 [facility] [id number] [phone] OFFICE VISITDate of Service: 12/03/20 MR#:[id number]: HARSH BENITEZRep #:[id number]:11/24/1966 Provider:Dr. Juan Fernando DOAge/Sex: 54/M Location:Jason:Signed Intake Vital Signs 12/03/20 13:15 12/03/20 13:29 Height 6 ft 2 in BMI 33.5 Intake Visit Reasons: CERVICAL SPINE Chief Complaint: Neck, Left Shoulder pain Is patient in pain?: Yes Pain scale (1-10): 8 Allergies No Known Allergies Allergy (Verified 12/03/20 13:26) Medications amlodipine 5 mg PO DAILY 01/18/16 [History Confirmed 12/03/20] losartan 100 mg PO DAILY 01/18/16 [History Confirmed 12/03/20] paroxetine HCl 40 mg PO DAILY 01/18/16 [History Confirmed 12/03/20] atorvastatin 40 mg PO DAILY #0 01/19/16 [Rx Confirmed 12/03/20] aspirin 81 mg PO DAILY@0800 03/28/18 [History Confirmed 12/03/20] cholecalciferol (vitamin D3) 1,000 unit PO DAILY 03/28/18 [History Confirmed 12/03/20] PFSH Medical History (Updated 12/03/20 @ 14:[address] Juan Fernando, ) Benign essential HTN Bilateral headaches Environmental allergies Hypertension Scoliosis Segmental and somatic dysfunction of pelvic region Surgical History No pertinent past surgical history Family History Other Arthritis Cancer Heart disease Hypertension Social History Smoking Status: Former smoker alcohol intake: current alcohol intake frequency: 0-2 drinks per day substance use type: does not use what type of physical activity do you participate in: none HPI CERVICAL SPINE Details: Parts of this documentation were recorded by a scribe, this documentation accurately reflects the service provided and the decisions made by me, Dr. Juan Fernando, DO 12/03/20 1284. HARSH BENITEZ is a 54 year old M here today for cervical spine pain. Patient is currently seeing for respiratory care technician. Patient has not received relief for his cervical spine from her. Patient was referred from to be seen for his C6 and C7 narrowness Patient states he has pain down his left arm but no numbness/tingling. Patient states he has numbness/tingling in his left finger tips for about 4-6 weeks constantly. Patient states his neck is sore/stiff in the upper shoulder/neck region just on the left side. Patient has not received any other kind of care for his neck pain except . Patient denies any popping or cling in his neck or left shoulder. Harsh is a most pleasant 54-year-old that has a chief complaint of pain mainly on the left side of his neck that radiates down the left arm in a classic C7 dermatome. This started about 6 weeks ago. It was fairly insidious in onset. The pain is no worse and no better than it was when it started. He denies any bowel or bladder dysfunction. He states that when the pain is bad it is an 8/10 in severity when it is good it is still a 3 or 4 in severity. Activity makes it worse. He has never had this kind of pain in the past. On examination he has a positive Spurling's to the left side. He has weakness of the left triceps as compared to the right. He also has some atrophy of the left triceps as compared to the right. The other muscles are all good in strength bilaterally. He has a decreased triceps on the left almost absent and 2+ on the right. He has 2+ brachioradialis and biceps reflexes bilaterally. He has no long tract signs. Clonus is absent Babinski's are downgoing. Review of plain x-rays of his cervical spine demonstrate that he has a significantly decreased disc space at C6-7. The impression is that of soft disc versus hard disc disease C6-7. We will order an MRI scan of the cervical spine. I will see him after the MRI scan and make further recommendations. Note that we are not recommending any conservative methods such as physical therapy for the simple reason that he has a significant neurological deficit. Coding Level of Care Code Off vis,new,level 3 Diagnoses Neck pain on left side M54.2 HNP (herniated nucleus pulposus), cervical M50.20 Time Spent (min) 30 Assessment and Plan Assessment and Plan (1) Neck pain on left side: Status: Acute Orders: Orders: Spine Cervical W/WO Contrast Today (2) HNP (herniated nucleus pulposus), cervical:
[2021-02-01] VITALS (12 sets, daily range): BP systolic 102–133; BP diastolic 65–90; PULSE 75–90; RESP 16–18; TEMP 36.4–37.3; O2SAT 88–100; BMI 38.7; BMI 39.9
--- NOTE | 2021-02-01 | DISC_PTH ---
PATIENT: MARQUITA WHATLEY I LOC: MS2 U#:[id number] AGE/SX: 45/F ROOM: [facility] [place] RE02/01/[address]: Dr. Manny Ching, : 1975 BED: 1 DIS: 02/04/2021 SPEC #: [id number] RECD: 02/01/21 15:38 STATUS: LEI REQ #: [id number] BUZZ: 02/01/21 00:[address]: Juan Fernando DEPT: SURGICAL PATHOLOGY RECD BY: Chidi Blanco ENTERED: 02/02/21 09:41 SP TYPE: DISC OTHR DR: MD Dr. Swati Oconnor MD Dr. Christopher Ranney, MD Dr. Mary Catherine Sementi, MD Junior Blackburn Dr., MD Dr. Eric Jopperi, MD Dr. Bhakti Aquino Dr., MD Dr. Joseph Agyepong, MD Dr. James Mooney, MD Dr. Kathryn Lee, DO Dr. Juan Fernando, DO Dr. Mayda Short Dr., MD Dr. Nicholas F Kotsonis, MD Dr. Nhan Luu, MD Dr. Prakash Chand, MD Dr. Paul Nielsen, MD Barbara Tickton, PHONOGRAPH CARTRIDGE ASSEMBLER-Mariaa Martin, PHONOGRAPH CARTRIDGE ASSEMBLER-Mariaa Ozuna, PHONOGRAPH CARTRIDGE ASSEMBLER-Mariaa Smalls, ALVARADO-Mariaa Currie, PHONOGRAPH CARTRIDGE ASSEMBLER-C LASHON Espinosa PA Tissues: Intervertebral disc, NOS Procedures: Surgery Specimen Level III Comments: @ Ordering doctor for SUIII edited from to @ by RGOOD at 02/02/21 1400 @ Submitting doctor edited from to @ by KARLA at 02/02/21 1400 HEADER OPERATION: ERAS, 360 lumbar fusion L5-S1 with repeat laminectomy PRE-OP DIAGNOSIS: Lumbosacral radiculopathy at L5; degenerative disc disease; acute back pain with radiculopathy TISSUE SUBMITTED: Lumbar disc MICROSCOPIC DIAGNOSIS Lumbar disc: Fragments of fibrocartilaginous tissue with reactive and degenerative changes and bone. IVANIA:anika 02/03/2021 MICROSCOPIC DESCRIPTION Slides are reviewed. GROSS DESCRIPTION Received in fixative is one container labeled with the patient's name and designated lumbar disc. The specimen consists of multiple pieces of huitron, indurated tissue that in aggregate measure 3 x 2.5 x 0.5 cm. Drilling Inspector tissue is submitted in one cassette. / IVANIA:anika 02/02/21 TC:5 CPT: 43276
[2021-02-01] MEDS: Acetaminophen 500 MG Tablet 1000 MG PO (06:13)
[2021-02-01] MEDS: Lactated Ringers 1,000 ML 100 ML IV ×4 (06:14→18:47)
[2021-02-01] MEDS: Cefazolin 2 GM in 0.9% Normal Saline 100 ML IV (07:51)
[2021-02-01] MEDS: Heparin 10,000 UNITS/10 ML Vial 10000 UNITS (09:00)
[2021-02-01] MEDS: THROMBIN (RECOMBINANT) 20,000 UNIT VIAL 20000 UNIT TOPICAL ×2 (09:00→11:12)
--- NOTE | 2021-02-01 09:35 | RAD_ITS ---
STUDY: X-RAY - LUMBAR SPINE REASON FOR EXAM: Female, 45 years old. 360 FUSION L5-S1 WITH REPEAT LAMINECTOMY TECHNIQUE: 1 view(s) of the lumbar spine were obtained. COMPARISON: None FINDINGS: Lateral view was obtained. Anterior localization instrument is seen. One instrument is at the L4-L5 disc space level and the second is at the L5-S1 level. RAD/Spine 1 View Any Level IMPRESSION: Localization instruments along the anterior aspect of the L4-L5 and L5-S1 disc space levels. Electronically Signed: Tyson Brooks MD at 10:46 EDT , Service support ,
[2021-02-01 09:44] LABS: Bedside Glucose 48 mg/dL (70-110)
[2021-02-01 09:50] LABS: Bedside Glucose 69 mg/dL (70-110)
--- NOTE | 2021-02-01 10:32 | RAD_ITS ---
STUDY: X-RAY - LUMBAR SPINE REASON FOR EXAM: Female, 45 years old. 360 FUSION L5-S1 WITH REPEAT LAMINECTOMY TECHNIQUE: 1 view(s) of the lumbar spine were obtained. COMPARISON: None FINDINGS: Single lateral view. The patient is status post fusion at the L5-S1 level. RAD/Spine 1 View Any Level IMPRESSION: Status post 360 degree fusion at the L5-S1 level. Electronically Signed: Tyson Brooks MD at 15:43 EDT , Service support ,
--- NOTE | 2021-02-01 11:01 | PCM.OPRPT ---
Report of Operation Date of Procedure: 02/01/21 Description of Surgical Findings:: Preoperative diagnosis: Degenerative disc disease L5-S1 with left S1 radiculopathy Postoperative diagnosis: The same Procedures: #1 anterior lumbar interbody fusion L5-S1 CPT code 82217 #2 application of spine plate L5-S1 CPT code 68642/59 #3 insertion of titanium cage L5-S1 CPT code 60935 Cosurgeons: Dr. Fernando and Dr. Galdamez pediatric physician assistant: Ester OATES Anesthesia: General endotracheal anesthesia administered by [facility] Estimated blood loss: Less than 100 cc Drains: None Complications: None Procedure: Patient was taken to the OR where she was placed under general endotracheal anesthesia. A Richardson catheter was inserted. Neuro monitoring placed placed their leads into the patient. On the OR table the abdomen was then prepped and draped in the standard fashion. The surgical approach is described in Dr. Galdamez's operative summary. Once Dr. Galdamez identified the L5-S1 space with a needle marker on with an x-ray with retraction from both Dr. Galdamez and the or first assist registered nurse I cut the anterior annulus with a 10 blade. I then removed nucleus from within the disc base with pituitary rongeurs angled bowl curettes and ring curettes. All cartilage was removed off both endplates. I then used a 6 mm bur to bur the edges to make it a flat surface and to open the back of the decreased disc space. Thorough irrigation was carried out. I then started out with a 8 degree 25 x 35 trial. This was 10 mm in height. I then used the 10 mm broach to broach the space. Following this I then used a 12 mm trial followed by a 12 mm broach also 8 degree 25 x 35. This was the appropriate size for that space. In the meantime bone marrow aspirate is what was obtained from the left iliac crest. This was handed off to the repair technician who spun it down and the stem cells and concentrated them and gave them back to us. We then took the 12 mm 8 degree cage filled both halves with demineralized bone matrix that was processed and spongiform. Once this was filled it was then soaked in the patient's own stem cells. This was then tamped into place and countersunk a millimeter or 2. We then use a 25 mm L5-S1 plate once centered we placed 2 all holes into L5 and 2 into S1. These were done 1 at a time of course. The locking mechanisms were then activated. Was seen on the lateral projection on x-rays found to be quite satisfactory. We then placed a amnionic graft directly over the plate as the left iliac vein went directly over it once the retraction was removed. Will prevent adhesions to the vessels from the plate. The closure is then described in Dr. Galdamez's operative summary. This is the end of operative summary on Genevieve Omalley. This is Dr. Fernando dictating.
--- NOTE | 2021-02-01 11:08 | PCM.OPRPT ---
Problems Associated Problem List Diagnoses (1) DDD (degenerative disc disease), lumbosacral: Report of Operation Date of Procedure: 02/01/21 Pre-Operative Diagnosis: Degenerative disc disease with radiculopathy Post-Operative Diagnosis: The same Surgery/Procedure Performed:: L5-S1 anterior lumbar interbody fusion with cage placed and anterior plate with 2 screws L5 2 screws S1 Type of Anesthesia: General/Regional Description of Procedure: Surgeon: Dr. Fernando co-surgeon: Dr. Fabio Galdamez Operation: Patient brought to the operating room. Underwent general anesthesia. All the appropriate monitoring lines were placed. She was prepped and draped in a sterile fashion. We did a left lower quadrant incision and dissected down onto the anterior fascia. We then incised open the fascia and extended this to the midline and then just past the rectus into the obliques. We then freed up the anterior sheath superior and inferior. We then got lateral to the rectus into the retroperitoneal plane. We dissected onto the iliopsoas muscle and then towards the iliac vessels. We put in an Omni retractor. Dissection exposure was difficult secondary to her size. But using blunt dissection and able to then dissect onto the L5-S1 disc space. The middle sacral and other vessels were all ligated between clips. Freed up enough onto L5 and then down on S1. We marked confirm we are in the appropriate disc space. She then underwent a discectomy. We then using trials and a broach dilated up the space. The entire disc space was then freed open. We then put in a small 12 mm 8 degree cage. This was filled in with demineralized bone and BMA. Anterior 25 mm plate was placed on top with 2 25mm screws in L5 and 2 25mm screws into S1. Film was placed over the cage as we released the vessels. There was good hemostasis noted. We then closed with running strata fix and then Vicryl in layers. 4-0 Monocryl Dermabond for the skin. Completion x-ray showed cage, the plate, and the screws were all in good position. She would then be flipped over the posterior all be done separately. I was present for the entire anterior component.
--- NOTE | 2021-02-01 12:35 | RAD_ITS ---
STUDY: X-RAY - LUMBAR SPINE REASON FOR EXAM: Female, 45 years old. 360 FUSION L5-S1 WITH REPEAT LAMINECTOMY -- IMAGE #3 TECHNIQUE: 1 view(s) of the lumbar spine were obtained. COMPARISON: None FINDINGS: The patient is status post anterior fusion with screw and screw fixation. A posterior localization marker is seen along the posterior aspect of the L5-S1 level. RAD/Spine 1 View Any Level IMPRESSION: Posterior localizer is seen along the posterior aspect of the L5-S1 disc space. Electronically Signed: Tyson Brooks MD at 14:05 EDT , Service support ,
--- NOTE | 2021-02-01 14:49 | PCM.OPRPT ---
Report of Operation Date of Procedure: 02/01/21 Description of Surgical Findings:: Preoperative diagnosis: Degenerative disc disease L5-S1 with left S1 radiculopathy Postoperative diagnosis: The same Procedure: #1 posterior fusion L5-S1 CPT code 93331 #2 laminectomy L5-S1 on the left CPT code 44522 #3 internal fixation L5-S1 CPT code 24241 Surgeon: Dr. Fernando emergency medicine physician assistant: Ester OATES Anesthesia: General endotracheal anesthesia administered by [facility] Estimated blood loss: 200 cc Drains: Medium Hemovac Complications: None Procedure: After the anterior surgery was done and the abdomen closed we then moved the patient onto the Michel frame in the prone position. Positioning was done carefully in order to protect the brachial plexus the patient's breasts, the ulnar nerves of both elbows, the cervical spine and facial features. The back was then prepped and draped in standard fashion. I then made a longitudinal incision centered over L5-S1 cutaneous tissues were incised the length of the skin incision. I then used cautery to open the lumbar fascia to the left of the spinous processes and elevated the paravertebral muscles off the lamina of S1 and the lamina of L5. An intraoperative x-ray was taken with a marker in place to assure that we were indeed at the proper level which we were. I then put a Karen retractor in place. Note that after the surgery that she had 12 years ago they apparently opened the left-sided L5-S1. This was not known before the surgery as she could not remember which side the surgery was on the thought it was the right. Well apparently it was the left. Nonetheless the bone grew from the laminotomy site all the way to S1. Finally was able to find an opening in the very center and use curettes to elevate the tissues and remove pull them off of the dura. I then began using 45 degree Kerrison rongeurs to perform the laminectomy and the medial facetectomy. I also perform foraminotomies followed the S1 nerve root out. Note that she has a lateral recess stenosis that undoubtedly was the source of her radiculopathy this was the medial border of the superior facet of S1. I was able to remove it with a Kerrison rongeurs. This completely decompressed the left S1 nerve root. We then packed it with Gelfoam the exposed lamina's were burred with a bur both sides of L5 and both sides of S1. DBM sponge soaked in patient's own stem cells was then packed over the posterior elements. Stability we also put a bony spacer in place between the spinous process of S1 and L5. The internal fixation device was applied it was centered and the locking mechanisms were then activated locking it in place. Note that in the course of the case we thoroughly irrigated with copious amounts of sterile saline repeatedly. We left a medium Hemovac drain in place. The laminotomy site was covered with a amniotic membrane to prevent adhesions and Gelfoam was placed over the top of that. I then closed the lumbar fascia using [id number] suture with #1 Vicryl. This was followed by closure of the subcutaneous tissues in 3 layers with 0 Vicryl and 2-0 Vicryl. The skin was approximated using skin clips. Sterile dressings were then applied. The patient was then recovered in the OR and taken to recovery on her hospital bed and satisfactory condition. This is the end of operative summary on Genevieve Omalley. This is Dr. Fernando dictating.
[2021-02-01 16:05] LABS: Bedside Glucose 137 mg/dL (70-110)
[2021-02-01] MEDS: Senna/Docusate Sodium 1 Tablet 2 TABLET PO ×2 (17:26→21:38)
[2021-02-01] MEDS: buPROPion (XL) 300 MG TABLET.XL PO (17:26)
[2021-02-01] MEDS: Famotidine 20 MG Tablet PO ×2 (17:26→21:38)
[2021-02-01] MEDS: Cefazolin 1 GM/50 ML BAG IV (17:27)
[2021-02-01] MEDS: 0.9% Saline Lock 10 ML Syringe IV ×2 (18:55→21:44)
[2021-02-01] MEDS: Morphine 2 MG/ML Syringe IV ×2 (18:55→21:43)
--- NOTE | 2021-02-01 19:44 | PN.HOSP_ITS ---
Subjective Subjective Patient with no acute complaint at this time. She notes that pain is currently controlled although worsened if she moves significantly. She denies any paresthesias to the lower extremities. She is comfortable and has her CPAP in place with plans to go to sleep. Patient denies fevers, chills, nausea, emesis, abdominal pain, chest pain or dyspnea. Objective Data Objective Data Vital Signs: Vital Signs Temp Pulse Resp BP Pulse Ox 97.8 F 83 16 102/65 91 02/01/21 18:34 02/01/21 18:34 02/01/21 18:34 02/01/21 18:34 02/01/21 18:34 Oxygen Flow Rate (L/min) 6 Oxygen Delivery Method Room Air Weight: 240 lb 1.334 oz Body Mass Index (BMI) 39.9 Intake & Output: Intake and Output for Last 24 Hours 01/30/21 01/31/21 02/01/21 23:59 23:59 23:59 Intake Total 2266.5 / 2266.5 Output Total 250 / 250 Balance 2015.5 / 2015. Lab / Micro Data Result Diagrams: 01/21/21 08:05 01/21/21 08:05 Labs: Laboratory Results - last 24 hr 02/01/21 05:47: POC Glucose 48 L 02/01/21 05:48: POC Glucose 69 L 02/01/21 16:03: POC Glucose 137 H Micro: Microbiology 01/21/21 08:05 Swab (Method) Nasal Screen MRSA/MSSA - Final 01/21/21 08:00 Interface Orders SARS-CoV-2 Antigen (Rapid) - Final Radiography Diagnostic Testing: Radiology Impression Spine X-Ray 02/01/21 10:32 IMPRESSION: Status post 360 degree fusion at the L5-S1 level. Electronically Signed: Tyson Brooks MD at 15:43 EDT , Service support , Spine X-Ray 02/01/21 12:35 IMPRESSION: Posterior localizer is seen along the posterior aspect of the L5-S1 disc space. Electronically Signed: Tyson Brooks MD at 14:05 EDT , Service support , Physical Exam Narrative Physical Examination: General: Awake, alert, oriented x 3 and cooperative, on her side in the medical surgical bed, no acute distress, CPAP in place. Skin: Normal color, normal turgor, no icterus, no cyanosis except for noted lumbar dressings in place status post surgery, no drainage, drain in place with serosanguineous fluid noted. HEENT: AT/NC, EOMI, PERRLA, MMM, CPAP in place. Lungs: Diminished, greater bases, appropriate effort, CPAP in place, no rales, ronchi or wheezing. Heart: Regular rate and rhythm; no gallop, rub audible. Abdomen: Soft, morbidly obese, NTTP, no obvious evidence of distention, distant normal BS. Extremities: No cyanosis, clubbing, or edema. Neurological: Patient awake, alert, oriented as noted, cognitive function intact; pupils equally reactive to light and accommodation, cranial nerves II- XII grossly normal, moving all 4 extremities, no focal deficits, exam somewhat difficult given recent lumbar surgery, strength moderately global decreased as expected given surgery. Psychiatric: Affect appears fatigued otherwise normal, no acute evidence of depressive or anxiety feelings. Assessment & Plan Assessment/Plan (1) DDD (degenerative disc disease), lumbosacral: (2) Lumbosacral radiculopathy at L5: PLAN: The patient is a 45 y/o F w/ PMHx: Morbid Obesity, Chronic Lumbar back pain/DDD w/ radiculopathy, Hx Migraines, Von Willebrand disease, Anxiety and Depression who presents to the [facility] as direction admission per Dr. Fernando on 02/01/21 for planned lumbar back surgery secondary to failed conservative interventions. 1. Severe lumbar degenerative disc disease with radiculopathy: Failed conservative therapies and treatments, admitted per Dr. Fernando for planned lumbar internal fixation, laminectomy and fusion, insertion titanium cage with application of spine plate, post-operative pain management, bowel regimen, PT/OT/CM per Orthopedic surgery discretion. 2. Von Willebrand disease: Complicates patient presentation given recent surgical intervention, continue to closely monitor and ensure no bleeding from incision region or significant output inpatient drain. If necessary may need to consider concentrate otherwise may need to consider desmopressin. Given this history defer any aggressive chemoprophylaxis. 3. Anxiety and depression: We will continue patient home trazodone, as needed low-dose Ativan, escitalopram, bupropion and aripiprazole regimen. 4. Morbid Obesity: Weight loss and lifestyle changes encouraged. 5. DVT prophylaxis: Encourage SCD usage. Charges/Coding Visit Charges Inpatient E&M: 24447 Subs Hosp L3
--- NOTE | 2021-02-01 19:51 | PCS.PANDOC ---
PANDEMIC DOCUMENTATION INITIATED: Date: 02/01/2021 Time: 729
--- NOTE | 2021-02-01 20:28 | CPS ---
o2 added to pt home bipap to keep sats 93%--
[2021-02-02] VITALS: BP 134/69; PULSE 94; RESP 18; TEMP 37.1; O2SAT 95
[2021-02-02] MEDS: Cefazolin 1 GM/50 ML BAG IV (00:09)
[2021-02-02] MEDS: oxyCODONE 5 MG Tablet PO ×3 (02:43→19:56)
[2021-02-02 05:00] VITALS: BP 131/83; PULSE 89; RESP 18; TEMP 36.1; O2SAT 96
[2021-02-02] MEDS: Acetaminophen 325 MG Tablet 650 MG PO ×3 (05:30→19:56)
[2021-02-02 07:42] VITALS: O2SAT 94
[2021-02-02 08:40] VITALS: BP 139/67; PULSE 90; RESP 16; TEMP 37; O2SAT 95
[2021-02-02] MEDS: Famotidine 20 MG Tablet PO ×2 (08:40→19:56)
[2021-02-02] MEDS: Senna/Docusate Sodium 1 Tablet 2 TABLET PO ×2 (08:40→19:56)
[2021-02-02] MEDS: buPROPion (XL) 300 MG TABLET.XL PO (08:40)
--- NOTE | 2021-02-02 11:13 | PCM.PN.ORT ---
Objective Data Objective Data Vital Signs: Vital Signs Temp Pulse Resp BP Pulse Ox 98.6 F 90 16 139/67 H 95 02/02/21 08:40 02/02/21 08:40 02/02/21 08:40 02/02/21 08:40 02/02/21 08:40 Oxygen Flow Rate (L/min) 2 Oxygen Delivery Method Room Air Weight: 240 lb 1.334 oz Body Mass Index (BMI) 39.9 Intake & Output: Intake and Output for Last 24 Hours 01/31/21 02/01/21 02/02/21 23:59 23:59 23:59 Intake Total 3266.5 / 3566.5 1850.00 / 1850.00 Output Total 250 / 1650 2435 / 2435 Balance 3016.5 / 1916.5 -585.00 / -585.00 Lab / Micro Data Result Diagrams: 01/21/21 08:05 01/21/21 08:05 Labs: Laboratory Results - last 24 hr 02/01/21 16:03: POC Glucose 137 H Micro: Microbiology 01/21/21 08:05 Swab (Method) Nasal Screen MRSA/MSSA - Final 01/21/21 08:00 Interface Orders SARS-CoV-2 Antigen (Rapid) - Final Radiography Diagnostic Testing: Radiology Impression Spine X-Ray 02/01/21 09:35 IMPRESSION: Localization instruments along the anterior aspect of the L4-L5 and L5-S1 disc space levels. Electronically Signed: Tyson Brooks MD at 10:46 EDT , Service support , Spine X-Ray 02/01/21 10:32 IMPRESSION: Status post 360 degree fusion at the L5-S1 level. Electronically Signed: Tyson Brooks MD at 15:43 EDT , Service support , Spine X-Ray 02/01/21 12:35 IMPRESSION: Posterior localizer is seen along the posterior aspect of the L5-S1 disc space. Electronically Signed: Tyson Brooks MD at 14:05 EDT , Service support , Procedure Criteria Elective Risks - COVID COVID Risk Discussion: Postop day 1. Genevieve is doing very well. She has been up and ambulating. She states that her pain level when she is up is 5 when she is lying down she has hardly any pain. Overall the back hurts more than her abdomen. He has not had any flatulence yet. She has no bowel sounds on auscultation. She has an ileus incidental to the anterior surgical approach around the peritoneal sac. This is common after almost every 360 degree fusion and is not a complication. Neurologically she is intact. She also reports that her left leg pain is all gone. We will leave the Hemovac in 1 more day as she is still draining. Progress is satisfactory.
--- NOTE | 2021-02-02 11:50 | CASEMGMT ---
RN CM Face to Face with patient for initial transition planning/care coordination assessment. RN CM introduced self and role at [facility]. Patient lying in bed, alert and oriented. Patient willing to participate in assessment and is able to answer all questions appropriately. Care providers, pharmacy, and demographics verified. Patient wishes to discharge home, denies need for home health at this time. Patient states she has no further needs or concerns at this time. CM to follow for discharge planning needs that may arise. PCP: Mario Specialists: Abdullahi spinal surgeon Preferred Pharmacy: [facility] Insurance: [facility] Prescription Benefit: yes Living Will/HPOA: none LNOK: mother, 3 children Living Arrangements: Patient lives with 3 children 18yo, 15yo, and 13yo-18yo caring for siblings. Patient in a 2 story home and was able to ambulate stairs prior to surgery. Patient was independent prior. Patient states that she could stay with mother who lives in a ranch home. Transportation: self, mother DME/HHC: Patient states she has cpap and walker. Patient denies previous HHC. Disposition Plan: Patient to discharge home with family support and follow-up plans in place. Nikki BALBUENA, RN, CM
--- NOTE | 2021-02-02 14:14 | CHAPLAIN ---
Type of Pastoral Visit _x__ Initial Visit ___ Follow-up Visit ___ On-call Visit ___ General Patient Visit ___ Spiritual Assessment ___ Family Conference ___ Bereavement ___ Rapid Response ___ Code Blue ___ Other (describe below) Pastoral Care Referral From _x__ Patient ___ Family ___ Nurse ___ Physician ___ Undercutter ___ Automobile Engine Assembler ___ Other (describe below) Sacrament/Intervention _x__ Active listening ___ Anointing ___ Catholic ___ Bereavement ___ Communion ___ Anastasia exploration ___ _x__ Life review _x__ Prayer ___ Reconciliation ___ Sacrament of Sick _x__ Supportive presence ___ Wedding ___ Other (describe below) Pastoral Comments patient welcomes the visit and prayer; pt has family support but will be missing some activities of family due to surgery; 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
[2021-02-02 15:00] VITALS: BP 105/59; PULSE 95; RESP 16; TEMP 37.6; O2SAT 95
[2021-02-02] MEDS: 0.9% Saline Lock 10 ML Syringe IV (17:16)
[2021-02-02] MEDS: Morphine 2 MG/ML Syringe IV (17:16)
--- NOTE | 2021-02-02 18:35 | PCM.PN.HOSP ---
Subjective Subjective Patient was seen and examined today, she has no complaints of any shortness of breath or chest discomfort. Patient states she appears comfortable at this time. Objective Data Objective Data Vital Signs: Vital Signs Temp Pulse Resp BP Pulse Ox 99.7 F H 95 16 105/59 L 95 02/02/21 15:00 02/02/21 15:00 02/02/21 15:00 02/02/21 15:00 02/02/21 15:00 Oxygen Flow Rate (L/min) 2 Oxygen Delivery Method Room Air Weight: 108.9 kg Body Mass Index (BMI) 39.9 Intake & Output: Intake and Output for Last 24 Hours 01/31/21 02/01/21 02/02/21 23:59 23:59 23:59 Intake Total 3266.5 / 3566.5 2350.00 / 2350.00 Output Total 250 / 1650 2450 / 2450 Balance 3016.5 / 1916.5 -100.00 / -100.00 Lab / Micro Data Result Diagrams: 01/21/21 08:05 01/21/21 08:05 Micro: Microbiology 01/21/21 08:05 Swab (Method) Nasal Screen MRSA/MSSA - Final 01/21/21 08:00 Interface Orders SARS-CoV-2 Antigen (Rapid) - Final Radiography Diagnostic Testing: Radiology Impression Spine X-Ray 02/01/21 09:35 IMPRESSION: Localization instruments along the anterior aspect of the L4-L5 and L5-S1 disc space levels. Electronically Signed: Tyson Brooks MD at 10:46 EDT , Service support , Physical Exam Const alert, oriented x3, no apparent distress and healthy appearing Constitutional Narrative: Patient has morbid obesity General Appearance: cooperative, well kempt and well developed Orientation / Consciousness: awake, oriented to person, oriented to place and oriented to time HEENT normocephalic, head/scalp atraumatic and moist oral mucous membranes Head and Scalp: normocephalic Eyes PERRL, EOMs intact bilaterally and conjunctivae normal Neck nuchal rigidity, supple, no JVD, thyroid normal and no carotid bruits General: trachea midline Resp normal respiratory effort and clear to auscultation bilaterally Auscultation: Negative for rales, rhonchi or wheezes Cardio regular rate, regular rhythm, S1 normal heart sound, S2 normal heart sound, no murmurs, no rub, no gallops and no clicks GI normal to inspection, nondistended, normoactive bowel sounds, soft to palpation, non-tender and non-distended Extremity no clubbing, cyanosis or edema Skin no rashes or lesions noted and skin turgor normal General Skin Exam: no breakdown Neuro oriented x3, CN's II-XII intact bilaterally, no focal motor deficits and no sensory deficits noted Sensorium / Orientation: awake and alert Speech: speech normal Psych thought process normal and affect normal Assessment & Plan Assessment/Plan (1) Acute back pain with radiculopathy: PLAN: 1. Degenerative disc disease of the lumbar spine #2 chronic anxiety #3 chronic depression #4 morbid obesity #5 Von Willebrand disease Charges/Coding Visit Charges Inpatient E&M: 35249 Subs Hosp L2
[2021-02-02 20:21] VITALS: BP 118/61; PULSE 89; RESP 16; TEMP 37.1; O2SAT 95
[2021-02-03] MEDS: diazePAM 5 MG Tablet PO (00:18)
[2021-02-03 03:50] VITALS: BP 107/53; PULSE 83; RESP 18; TEMP 36.9; O2SAT 96
[2021-02-03] MEDS: Acetaminophen 325 MG Tablet 650 MG PO ×3 (04:05→20:45)
[2021-02-03] MEDS: oxyCODONE 5 MG Tablet PO ×4 (04:05→20:46)
[2021-02-03 07:37] VITALS: O2SAT 95
[2021-02-03] MEDS: Senna/Docusate Sodium 1 Tablet 2 TABLET PO ×2 (07:51→20:45)
[2021-02-03] MEDS: Famotidine 20 MG Tablet PO ×2 (07:51→20:45)
[2021-02-03] MEDS: buPROPion (XL) 300 MG TABLET.XL PO (07:52)
[2021-02-03 08:01] VITALS: BP 141/85; PULSE 88; RESP 18; TEMP 37.1; O2SAT 94
[2021-02-03 08:05] VITALS: O2SAT 89
[2021-02-03] MEDS: Ensure Clear 120 ML Liquid PO ×3 (13:45→21:37)
--- NOTE | 2021-02-03 13:56 | PCM.PN.ORT ---
Objective Data Objective Data Vital Signs: Vital Signs Temp Pulse Resp BP Pulse Ox 98.7 F 88 18 141/85 H 89 02/03/21 08:01 02/03/21 08:01 02/03/21 08:01 02/03/21 08:01 02/03/21 08:05 Oxygen Flow Rate (L/min) 2 Oxygen Delivery Method Room Air Weight: 240 lb 1.334 oz Body Mass Index (BMI) 39.9 Intake & Output: Intake and Output for Last 24 Hours 02/01/21 02/02/21 02/03/21 23:59 23:59 23:59 Intake Total 3266.5 / 3566.5 2650.00 / 2950.00 700 / 700 Output Total 250 / 1650 2460 / 2465 5 / 5 Balance 3016.5 / 1916.5 190.00 / 485.00 695 / 695 Lab / Micro Data Result Diagrams: 01/21/21 08:05 01/21/21 08:05 Micro: Microbiology 01/21/21 08:05 Swab (Method) Nasal Screen MRSA/MSSA - Final 01/21/21 08:00 Interface Orders SARS-CoV-2 Antigen (Rapid) - Final Procedure Criteria Elective Risks - COVID COVID Risk Discussion: Postop day #2. Patient continues to do well. She has some flatulence earlier today. Her bowel sounds are still hypohowever thus we will keep her on clear liquids for 1 more day. In all likelihood she will be ready to go home tomorrow. Change her dressing and removed her drain. The incision is healing well. Neuro is intact in both lower extremities. She relates that she has been walking well and has no complaints whatsoever. I will see her again tomorrow and hopefully be able to discharge her.
[2021-02-03 14:00] VITALS: BP 109/60; PULSE 89; RESP 18; TEMP 36.2; O2SAT 97
--- NOTE | 2021-02-03 19:28 | PCM.PN.HOSP ---
Subjective Subjective Patient was seen and examined today, she complains of a headache otherwise she has no specific complaints. Objective Data Objective Data Vital Signs: Vital Signs Temp Pulse Resp BP Pulse Ox 97.1 F L 89 18 109/60 97 02/03/21 14:00 02/03/21 14:00 02/03/21 14:00 02/03/21 14:00 02/03/21 14:00 Oxygen Flow Rate (L/min) 2 Oxygen Delivery Method Room Air Weight: 108.9 kg Body Mass Index (BMI) 39.9 Intake & Output: Intake and Output for Last 24 Hours 02/01/21 02/02/21 02/03/21 23:59 23:59 23:59 Intake Total 3266.5 / 3566.5 2650.00 / 2950.00 700 / 700 Output Total 250 / 1650 2460 / 2465 5 / 5 Balance 3016.5 / 1916.5 190.00 / 485.00 695 / 695 Lab / Micro Data Result Diagrams: 01/21/21 08:05 01/21/21 08:05 Micro: Microbiology 01/21/21 08:05 Swab (Method) Nasal Screen MRSA/MSSA - Final 01/21/21 08:00 Interface Orders SARS-CoV-2 Antigen (Rapid) - Final Physical Exam Const alert, oriented x3 and no apparent distress General Appearance: cooperative, well kempt and well developed Orientation / Consciousness: awake, oriented to person, oriented to place and oriented to time HEENT normocephalic and moist oral mucous membranes Eyes PERRL, EOMs intact bilaterally and conjunctivae normal Neck nuchal rigidity, supple, no JVD, thyroid normal and no carotid bruits General: trachea midline Resp normal respiratory effort and clear to auscultation bilaterally Auscultation: Negative for rales, rhonchi or wheezes Cardio regular rate, regular rhythm, no murmurs, no rub and no gallops GI normal to inspection, nondistended, normoactive bowel sounds, soft to palpation, non-tender and non-distended Extremity no clubbing, cyanosis or edema Skin no rashes or lesions noted General Skin Exam: no breakdown Neuro oriented x3, CN's II-XII intact bilaterally, no focal motor deficits and no sensory deficits noted Sensorium / Orientation: awake and alert Speech: speech normal Psych thought process normal and affect normal Assessment & Plan Assessment/Plan (1) DDD (degenerative disc disease), lumbosacral: (2) Acute back pain with radiculopathy: PLAN: 1. Degenerative disc disease of the lumbar spine #2 chronic anxiety #3 chronic depression #4 morbid obesity #5 Von Willebrand disease #6 migraine cephalgia Charges/Coding Visit Charges Inpatient E&M: 70186 Subs Hosp L2
[2021-02-03 20:40] VITALS: BP 108/57; PULSE 93; RESP 18; TEMP 36.9; O2SAT 95
[2021-02-04] MEDS: Ibuprofen 600 MG Tablet PO (01:14)
[2021-02-04 02:41] VITALS: BP 122/76; PULSE 76; RESP 16; TEMP 36.8; O2SAT 96
[2021-02-04] MEDS: oxyCODONE 5 MG Tablet PO ×2 (03:45→14:11)
[2021-02-04] MEDS: Acetaminophen 325 MG Tablet 650 MG PO ×2 (03:45→14:10)
[2021-02-04 07:41] VITALS: O2SAT 92
[2021-02-04 09:47] VITALS: BP 112/71; PULSE 89; RESP 18; TEMP 35.9; O2SAT 98
[2021-02-04] MEDS: Senna/Docusate Sodium 1 Tablet 2 TABLET PO (09:50)
[2021-02-04] MEDS: Famotidine 20 MG Tablet PO (09:50)
[2021-02-04] MEDS: buPROPion (XL) 300 MG TABLET.XL PO (09:50)
[2021-02-04] MEDS: Ensure Clear 120 ML Liquid PO (09:57)
[2021-02-04] MEDS: Acetaminophen/Butalbital/Caffe 1 Tablet 2 TABLET PO (11:53)
--- NOTE | 2021-02-04 13:35 | PCM.DC.SUM ---
Providers Date of Admission: 02/01/21 Primary Care Physician: DONNIE Pedraza Consultations 02/01/21 16:30 Consult: Hospitalist Routine Consulting Provider: Feng Duff Reason for Consult: Medical Management EMERGENT Consult: No MD Notified: Yes Date Notified: 02/01/21 Time Notified: 19:10 Method of Notification: Text Reason For Visit: 360 LUMBAR FUSION L5-S1 WITH LT LAMINECOTMY Diagnosis Discharge Diagnosis (1) DDD (degenerative disc disease), lumbosacral: Status: Acute Code(s): M51.37 - Other intervertebral disc degeneration, lumbosacral region (2) Acute back pain with radiculopathy: Status: Acute Code(s): M54.10 - Radiculopathy, site unspecified Plan: This patient was admitted on February 01, 2021 is being discharged on February 04, 2021. Admitting diagnosis was herniated disc L5-S1 with severe left S1 radiculopathy. Discharge diagnoses are the same. Procedures while in the hospital: She underwent 360 degree fusion at the L5-S1 level on the date of admission. At discharge she is doing well. Her left leg pain is completely gone. Her incisions are both healing well. Her ileus that was incidental to the surgical approach is completely resolved. She was given post 360 protocol regarding her activities. She already has an appointment to see me. She will be given hydrocodone for pain. This is the end of discharge summary on Genevieve Omalley. This is Dr. Fernando dictating. Medications at Discharge Home Medications albuterol sulfate 1 - 2 puff INHALATION Q6H PRN PRN 01/16/19 escitalopram oxalate 20 mg PO DAILY 01/16/19 trazodone 25 - 150 mg PO QHS 01/16/19 bupropion HCl 150 mg 24 hr tablet, extended release 300 mg PO DAILY 12/13/20 lorazepam 0.5 mg tablet 0.5 mg PO BID PRN PRN 12/13/20 aripiprazole 5 mg PO QHS 01/18/21 Weight / BMI Weight Weight: 240 lb 1.334 oz Body Mass Index (BMI) 39.9 ABG / Lab / Microbiology Data Result Diagrams: 01/21/21 08:05 01/21/21 08:05 Microbiology: Microbiology 01/21/21 08:05 Swab (Method) Nasal Screen MRSA/MSSA - Final 01/21/21 08:00 Interface Orders SARS-CoV-2 Antigen (Rapid) - Final Meaningful Use Info Meaningful Use Diagnoses (Choose all that apply): None applicable Discharge Plan Admission Admit Date/Time: 02/01/21 05:24 Attending Provider: Manny Ching Primary Care Provider: Brigette Martin NP Consulting Providers: Veronica Nicole ; Swati Mckinney ; Dawson Bass ; Jeri Mccormack ; Pete Burnham ; Junior Voss ; Curly Childers ; RalphEfewongbe ; Ralph,Bhakti ; Landen Meyers ; Heber Grossman ; Alanna Rodriguez ; Manny Ching ; Mayda Turcios ; Jay Flaherty ; Miguelangel Mercedes ; Chris Pham ; Brent Matthews ; Genevieve Workman NP ; Anu Ozuna ; Heather Smalls NP ; Manny Currie NP ; Shaila Ni ; Ramya Snowden Discharge Orders/Prescriptions Prescriptions: No Action trazodone 50 MG tablet 25 - 150 mg PO QHS RF: 0 escitalopram oxalate 20 MG tablet 20 mg PO DAILY RF: 0 albuterol sulfate 1 PUFF inhaler 1 - 2 puff inhalation Q6H PRN PRN (Reason: Sob &/Or Wheezing) RF: 0 bupropion HCl 150 mg tablet extended release 24 hr 300 mg PO DAILY RF: 0 lorazepam 0.5 mg tablet 0.5 mg PO BID PRN PRN (Reason: Anxiety) RF: 0 aripiprazole 5 mg Tablet 5 mg PO QHS RF: 0 Referrals / Follow Up: Brigette Martin NP, [facility] [Primary Care Provider] - Disposition Disposition (needs filled in before D/C Order can be placed): Home, Self Care
[2021-02-04 14:05] VITALS: BP 113/75; PULSE 95; RESP 16; TEMP 36.1; O2SAT 97
--- NOTE | 2021-02-04 19:28 | PCM.PN.HOSP ---
Subjective Subjective Patient was seen and examined today, she complained of a migraine headache but had no other complaints, I gave her Fioricet today for the headache. Objective Data Objective Data Vital Signs: Vital Signs Temp Pulse Resp BP Pulse Ox 97.0 F L 95 16 113/75 97 02/04/21 14:05 02/04/21 14:05 02/04/21 14:05 02/04/21 14:05 02/04/21 14:05 Oxygen Flow Rate (L/min) 2 Oxygen Delivery Method Room Air Weight: 108.9 kg Body Mass Index (BMI) 39.9 Intake & Output: Intake and Output for Last 24 Hours 02/02/21 02/03/21 02/04/21 23:59 23:59 23:59 Intake Total 2650.00 / 2950.00 700 / 1100 700 / 700 Output Total 2460 / 2465 5 / 5 Balance 190.00 / 485.00 695 / 1095 700 / 700 Lab / Micro Data Result Diagrams: 01/21/21 08:05 01/21/21 08:05 Micro: Microbiology 01/21/21 08:05 Swab (Method) Nasal Screen MRSA/MSSA - Final 01/21/21 08:00 Interface Orders SARS-CoV-2 Antigen (Rapid) - Final Physical Exam Const alert, oriented x3, no apparent distress and healthy appearing General Appearance: cooperative, well kempt and well developed Orientation / Consciousness: awake, oriented to person, oriented to place and oriented to time HEENT normocephalic and moist oral mucous membranes Eyes PERRL, EOMs intact bilaterally and conjunctivae normal Neck nuchal rigidity, supple, no JVD, thyroid normal and no carotid bruits General: trachea midline Resp normal respiratory effort and clear to auscultation bilaterally Auscultation: Negative for rales, rhonchi or wheezes Cardio regular rate, regular rhythm, no murmurs, no rub and no gallops GI normal to inspection, nondistended, normoactive bowel sounds, soft to palpation, non-tender and non-distended Extremity no clubbing, cyanosis or edema Skin no rashes or lesions noted General Skin Exam: no breakdown Neuro oriented x3, CN's II-XII intact bilaterally, no focal motor deficits and no sensory deficits noted Sensorium / Orientation: awake and alert Speech: speech normal Psych thought process normal and affect normal Assessment & Plan Assessment/Plan (1) Migraines: (2) DDD (degenerative disc disease), lumbosacral: (3) Acute back pain with radiculopathy: PLAN: 1. Degenerative disc disease of the lumbar spine #2 chronic anxiety #3 chronic depression #4 morbid obesity #5 Von Willebrand disease #6 migraine cephalgia-patient was given Fioricet today Patient remains medically stable Charges/Coding Visit Charges Inpatient E&M: 60363 Subs Hosp L2
== END 2021-02-04 14:50 | disposition home or self-care (01) | DRG 454 ==
LOC: ACINP 05:39 → MS2 02-02 07:10 → ACINP 02-02 11:37
PROVIDERS: Anesthesiology; Admitting Provider Orthopaedic Surgery; PCP Registered Nurse; Referring Provider Orthopaedic Surgery; Visit Provider Internal Medicine
PROC: 0SG30A0 Fusion of Lumbosacral Joint with Interbody Fusion Device, Anterior Approach, Anterior Column, Open Approach (ICD-10-PCS; principal; 2021-02-01 07:00)
DX: M51.17 Intervertebral disc disorders with radiculopathy, lumbosacral region (principal); D68.0 Von Willebrand disease; I10 Essential (primary) hypertension; F41.9 Anxiety disorder, unspecified; J45.909 Unspecified asthma, uncomplicated; F32.9 Major depressive disorder, single episode, unspecified; K21.9 Gastro-esophageal reflux disease without esophagitis; G47.33 Obstructive sleep apnea (adult) (pediatric); Z79.899 Other long term (current) drug therapy; Z87.891 Personal history of nicotine dependence; E66.01 Morbid (severe) obesity due to excess calories; Z68.39 Body mass index [BMI] 39.0-39.9, adult; G43.909 Migraine, unspecified, not intractable, without status migrainosus
CPT/HCPCS: 36415; 72020; 80048; 80076; 82962; 83735; 85025; 85610; 85730; 86703; 86706; 86708; 86803; 87081; 87426; 88304; 93005; 97162; 97530; 99251; C1713; C9803; J7120; A4216; G0463; J2405

== ENCOUNTER → 2022-09-15 | Outpatient (CLI) | payer OTHER, SELFPAY ==
[2022-09-15 09:36] LABS: Absolute Lymphocyte Count 2.13 X10^3/uL (0.83-4.51); Absolute Neutrophil Count 4.3 X10^3/uL (2.0-7.7); Basophil# 0.06 X10^3/uL; Basophil% 0.8 % (0-1); Eosinophil# 0.24 X10^3/uL; Eosinophils% 3.3 % (0-5); Hematocrit 43.7 % (37-47); Hemoglobin 14.4 g/dL (12.0-15.0); Lymphocyte # 2.13 X10^3/ul (0.83-4.51); Lymphocyte % 28.9 % (19-41); Mean Corpuscular Hgb 29.9 pg (27.0-32.0); Mean Corpuscular Volume 90.9 fL (81-99); Mean Platelet Vol. 10.5 fl (6.2-12.0); Monocyte# 0.57 X10^3/uL; Monocyte% 7.7 % (0-10); NRBC Flagged by Analyzer 0 % (0-5); Neutrophil # 4.32 X10^3/uL (2.7-7.7); Neutrophil % 58.8 % (47-70); Platelet Count 239 K/mm3 (150-450); RBC Distribution Width CV 13.2 % (11.6-14.6); Red Blood Count 4.81 M/mm3 (4.2-5.4); White Blood Count 7.4 K/mm3 (4.4-11.0)
[2022-09-15 09:47] LABS: Erythrocyte Sedimentation Rate 35 mm/hr (0-30)
[2022-09-15 09:58] LABS: Prothrombin Time (Protime)PT. 13.4 SECONDS (11.7-14.9)
[2022-09-15 10:06] LABS: Hemoglobin A1c 5.6 % (3.8-5.6)
[2022-09-15 10:13] LABS: ALB/GLOB Ratio 0.8 RATIO (0.9-2.4); AST(SGOT) 123 U/L (15-37); Alanine Aminotransfer ALT/SGPT 186 U/L (13-56); Albumin, Serum 3.3 g/dL (3.2-5.0); Alkaline Phosphatase 93 U/L (45-117); Anion Gap 9 (5-15); BUN 10 mg/dL (7-18); BUN/Creat Ratio 12.6 RATIO (10-20); Calcium,Total 9.2 mg/dL (8.5-10.1); Chloride 104 mmol/L (98-107); Cholesterol 178 mg/dL (200); Creatinine, Serum 0.79 mg/dL (0.55-1.02); EST Glomerular Filtration Rate 82 mL/min (>60); Est Glom Filt Rate - Afr Amer 100 mL/min (>60); Ferritin 333 ng/mL (8-252); Glucose 98 mg/dL (74-106); High Density Lipoprotein 43 mg/dL; LDH 179 U/L (84-246); Potassium 3.6 mmol/L (3.5-5.1); Protein, Total 7.3 g/dL (6.4-8.2); Sodium Level 139 mmol/L (136-145); Triglycerides 131 mg/dL; Very Low Density Lipoprotein 26 mg/dL (5-40)
[2022-09-15 10:28] LABS: HIV - WCH Non-Reactive (Nonreactive); Vitamin D,25 Hydroxy 98.6 ng/mL
[2022-09-18 14:08] LABS: Anti-Centromere B Ab <0.2 AI (0.0-0.9); Anti-Chromatin <0.2 AI (0.0-0.9); Anti-Jo <0.2 AI (0.0-0.9); Anti-Mitochondrial AB <20.0 Units (0.0-20.0); Anti-Scleroderma-70 AB <0.2 AI (0.0-0.9); Anti-dsDNA Ab <1 IU/mL (0-9); RNP Ab <0.2 AI (0.0-0.9); SJOGREN'S Anti-SS-A test < 0.2 AI (0.0-0.9); SJOGREN'S Anti-SS-B test < 0.2 AI (0.0-0.9); Smith Ab <0.2 AI (0.0-0.9); Vitamin D 1,25-Dihydroxy 84.4 pg/mL (24.8-81.5)
[2022-09-19 03:07] LABS: AFP, Tumor Marker 4.1 ng/mL (0.0-6.4); Angiotensin Convert Enzyme 42 U/L (14-82); Anti-Smooth Muscle ABS 27 Units (0-19); Ceruloplasmin 24.4 mg/dL (19.0-39.0); Copper, Serum or Plasma 113 ug/dL (80-158); Cytoplasmic Ab (C-ANCA) 1:20 titer (Neg:<1:20); HEPATITIS B SURFACE AG Negative (Negative); Haptoglobin 194 mg/dL (42-296); Hep C Antibodies Non Reactive (Non Reactive); Hepatitis A IgM Antibody Negative (Negative); Hepatitis B Core AB IgM Negative (Negative); Perinuclear Ab (P-ANCA) <1:20 titer (Neg:<1:20)
== END | disposition home or self-care (01) ==
LOC: LAB 09:08
PROVIDERS: PCP Registered Nurse; Referring Provider Internal Medicine Gastroenterology; Visit Provider Internal Medicine Gastroenterology
DX: R79.89 Other specified abnormal findings of blood chemistry (principal); E55.9 Vitamin D deficiency, unspecified
CPT/HCPCS: 36415; 80053; 80061; 80074; 82105; 82140; 82164; 82306; 82390; 82525; 82652; 82728; 83010; 83036; 83516; 83615; 85025; 85610; 85652; 86140; 86225; 86235; 86256; 86703

== ENCOUNTER → 2022-10-12 | Outpatient (CLI) | payer OTHER, SELFPAY ==
--- NOTE | 2022-10-12 09:58 | US_ITS ---
STUDY: ABDOMINAL ULTRASOUND - RIGHT UPPER QUADRANT REASON FOR VISIT: Female, 47 years old Elevated LFTs TECHNIQUE: Ultrasound evaluation of the right upper quadrant was performed with real-time and static cazares-scale imaging. TECHNICAL QUALITY: Adequate. COMPARISON: None. FINDINGS: Liver: The liver measures 17.4 cm. There is increased echogenicity consistent with fatty infiltration. The bile ducts are within normal limits. There is hepatic color flow. The direction of portal flow is hepatopetal. There is no demonstrated mass lesion. Gallbladder: Normal distended gallbladder. The gallbladder wall measures 1.7 mm. There is a negative sonographic Duarte''s sign. There is no pericholecystic fluid. There are no gallstones. There is a 5 mm x 4 mm x 2 mm gallbladder polyp adherent to the gallbladder wall. Common Bile Duct (C.B.D.): The common bile duct measures 3.5 mm. Pancreas: Normal size of the head, body and tail of the pancreas. There is normal echogenicity of the pancreas. There is no demonstrated pancreatic mass or cyst. Right Kidney: Normal size of the right kidney. The right kidney measures 12.7 cm x 5.3 cm x 4.7 cm. Normal renal cortex. The right cortex measures 1.4 cm. There is no demonstrated renal mass or cyst. There is no right hydronephrosis. US/Abdomen Limited IMPRESSION: Mild hepatomegaly and fatty infiltration of the liver. Electronically Signed: Tyson Brooks MD at 11:09 EDT ,
--- NOTE | 2022-10-12 09:58 | US_ITS ---
STUDY: ABDOMINAL ULTRASOUND - ELASTOGRAPHY REASON FOR VISIT: Female, 47 years old. Elevated liver enzymes. TECHNIQUE: Liver stiffness measurements were obtained on a NextFit RS 85 ultrasound machine using a CA 1-7 probe following the SRU guidelines. 3 measurements were obtained using a 2-D-SWE method. TheIQR/M was 16% suggesting a quality data set. TECHNICAL QUALITY: Adequate. COMPARISON: None. FINDINGS: Liver: There is no demonstrated mass lesion. Median liver stiffness measured 6.8 kPa. Abdomen: There is no demonstrated mass lesion. US/Elastography Parenchyma/Organ IMPRESSION: Liver stiffness measures 6.8 kPa compatible with F2-F3 (Mild to moderate liver fibrosis) Metavir score. Electronically Signed: Tyson Brooks MD at 11:10 EDT ,
== END | disposition home or self-care (01) ==
LOC: US 09:57
PROVIDERS: PCP Registered Nurse; Referring Provider Internal Medicine Gastroenterology; Visit Provider Internal Medicine Gastroenterology
DX: R79.89 Other specified abnormal findings of blood chemistry (principal)
CPT/HCPCS: 76705; 76981

== ENCOUNTER → 2023-01-25 | Outpatient (CLI) | payer OTHER, SELFPAY ==
[2023-01-25 11:34] LABS: Erythrocyte Sedimentation Rate 29 mm/hr (0-30)
[2023-01-25 11:53] LABS: CRP 9.78 mg/L (0.0-3.0); Ferritin 169 ng/mL (8-252)
[2023-01-29 14:08] LABS: Anti-Smooth Muscle ABS 13 Units (0-19); Cytoplasmic Ab (C-ANCA) <1:20 titer (Neg:<1:20); Perinuclear Ab (P-ANCA) <1:20 titer (Neg:<1:20)
== END | disposition home or self-care (01) ==
PROVIDERS: PCP Registered Nurse; Referring Provider Internal Medicine Gastroenterology; Visit Provider Internal Medicine Gastroenterology
DX: R79.89 Other specified abnormal findings of blood chemistry (principal)
CPT/HCPCS: 82728; 83516; 85652; 86140; 86256

== ENCOUNTER → 2024-01-11 | Outpatient (CLI) | payer OTHER, SELFPAY ==
--- NOTE | 2024-01-11 07:13 | US_ITS ---
STUDY: ABDOMINAL ULTRASOUND - RIGHT UPPER QUADRANT; ELASTOGRAPHY REASON FOR VISIT: Female, 48 years old. Elevated liver enzymes. TECHNIQUE: Ultrasound evaluation of the right upper quadrant was performed with real-time and static cazares-scale imaging. Point quantification shear wave elastography was performed ([employer]). TECHNICAL QUALITY: Adequate. COMPARISON: Comparison is made with prior study dated October 12, 2022. FINDINGS: Liver: The liver measures 13.8 cm. There is increased echogenicity consistent with fatty infiltration. The bile ducts are within normal limits. There is hepatic color flow. The direction of portal flow is hepatopetal. There is an 8 mm x 9 mm x 4 mm cyst in the left lobe of the liver. Median liver stiffness measured 5.4 kPa. Gallbladder: Normal distended gallbladder. The gallbladder wall measures 4.0 mm. There is a negative sonographic Duarte''s sign. There is no pericholecystic fluid. There are multiple echogenic structures within the gallbladder, consistent with multiple small gallstones. Sludge is seen within the gallbladder lumen. Common Bile Duct (C.B.D.): The common bile duct measures 7.3 mm. Pancreas: There is normal echogenicity of the visualized pancreas. There is no demonstrated pancreatic mass or cyst. Right Kidney: Normal size of the right kidney. The right kidney measures 10.1 cm x 5.9 cm x 4.4 cm. Normal renal cortex. The right cortex measures 1. cm. There is no demonstrated renal mass or cyst. There is no right hydronephrosis. US/ABD Limited w/ Elastography IMPRESSION: 1. Liver stiffness measures 5.4 kPa compatible with F0-F1 (Normal to mild liver fibrosis) Metavir score. 2. Multiple small gallstones. Electronically Signed: Tyson Brooks MD at 11:05 EDT ,
[2024-01-11 09:08] LABS: Absolute Neutrophil Count 3.6 X10^3/uL (2.0-7.7); Basophil# 0.03 X10^3/uL; Basophil% 0.5 % (0-1); Eosinophil# 0.13 X10^3/uL; Eosinophils% 2.2 % (0-5); Hematocrit 41.9 % (37-47); Lymphocyte % 30.3 % (19-41); Mean Corp Hgb Conc 33.4 g/dL (32-36); Mean Corpuscular Hgb 29.2 pg (27.0-32.0); Mean Corpuscular Volume 87.5 fL (81-99); Mean Platelet Vol. 11.3 fl (6.2-12.0); Monocyte# 0.39 X10^3/uL; Monocyte% 6.6 % (0-10); NRBC Flagged by Analyzer 0 % (0-5); Neutrophil # 3.57 X10^3/uL (2.7-7.7); Neutrophil % 60.1 % (47-70); Platelet Count 233 K/mm3 (150-450); RBC Distribution Width CV 12.5 % (11.6-14.6); RBC Distribution Width SD 39.9 fl (35.1-43.9); Red Blood Count 4.79 M/mm3 (4.2-5.4); White Blood Count 5.9 K/mm3 (4.4-11.0)
[2024-01-11 09:36] LABS: Erythrocyte Sedimentation Rate 16 mm/hr (0-30)
[2024-01-11 09:44] LABS: ALB/GLOB Ratio 0.9 RATIO (0.9-2.4); AST(SGOT) 11 U/L (15-37); Alanine Aminotransfer ALT/SGPT 20 U/L (13-56); Albumin, Serum 3.4 g/dL (3.2-5.0); Alkaline Phosphatase 80 U/L (45-117); Anion Gap 3 (5-15); BUN 9 mg/dL (7-18); BUN/Creat Ratio 12.6 RATIO (10-20); CRP < 2.90 mg/L (0.0-3.0); Calcium,Total 9.3 mg/dL (8.5-10.1); Chloride 108 mmol/L (98-107); Cholesterol 169 mg/dL (200); Creatinine, Serum 0.72 mg/dL (0.55-1.02); EST Glomerular Filtration Rate 92 mL/min (>60); Est Glom Filt Rate - Afr Amer 111 mL/min (>60); Globulin 3.6 g/dL (2.2-4.2); Glucose 92 mg/dL (74-106); High Density Lipoprotein 41 mg/dL; LDH 129 U/L (84-246); Potassium 3.3 mmol/L (3.5-5.1); Sodium Level 138 mmol/L (136-145); Triglycerides 135 mg/dL; Very Low Density Lipoprotein 27 mg/dL (5-40)
[2024-01-11 10:07] LABS: Vitamin D,25 Hydroxy 48.9 ng/mL
[2024-01-12 15:08] LABS: Anti-Centromere B Ab <0.2 AI (0.0-0.9); Anti-Chromatin <0.2 AI (0.0-0.9); Anti-Jo <0.2 AI (0.0-0.9); Anti-Mitochondrial AB <20.0 Units (0.0-20.0); Anti-Scleroderma-70 AB <0.2 AI (0.0-0.9); Anti-dsDNA Ab <1 IU/mL (0-9); RNP Ab <0.2 AI (0.0-0.9); SJOGREN'S Anti-SS-A test < 0.2 AI (0.0-0.9); SJOGREN'S Anti-SS-B test < 0.2 AI (0.0-0.9); Smith Ab <0.2 AI (0.0-0.9)
[2024-01-15 22:07] LABS: AFP, Tumor Marker 2.4 ng/mL (0.0-6.4); Angiotensin Convert Enzyme 20 U/L (14-82); Anti-Smooth Muscle ABS 4 Units (0-19); Ceruloplasmin 24.2 mg/dL (19.0-39.0); Copper, Serum or Plasma 86 ug/dL (80-158); Cytoplasmic Ab (C-ANCA) <1:20 titer (Neg:<1:20); HEPATITIS B SURFACE AG Negative (Negative); Hep C Antibodies Non Reactive (Non Reactive); Hepatitis A IgM Antibody Negative (Negative); Hepatitis B Core AB IgM Negative (Negative); Perinuclear Ab (P-ANCA) <1:20 titer (Neg:<1:20)
== END | disposition home or self-care (01) ==
PROVIDERS: PCP Registered Nurse; Referring Provider Internal Medicine Gastroenterology; Visit Provider Internal Medicine Gastroenterology
DX: K76.0 Fatty (change of) liver, not elsewhere classified (principal); R79.89 Other specified abnormal findings of blood chemistry
CPT/HCPCS: 36415; 76705; 76981; 80053; 80061; 80074; 82105; 82140; 82164; 82306; 82390; 82525; 83036; 83516; 83615; 85025; 85652; 86140; 86225; 86235; 86256

== ENCOUNTER 2024-06-07 11:08 | Emergency (ER) | payer OTHER, SELFPAY ==
[2024-06-07 11:09] VITALS: BP 155/96; PULSE 102; RESP 18; TEMP 36.8; O2SAT 99; BMI 30.7
--- NOTE | 2024-06-07 11:43 | CT_ITS ---
EXAM: CT HEAD WITHOUT INTRAVENOUS CONTRAST CLINICAL INDICATION: None provided. TECHNIQUE: Multiple axial images were obtained of the head without intravenous contrast. This CT exam was performed using one or more of the following dose reduction techniques: automated exposure control, adjustment of the mA and/or kV according to patient size, and/or use of iterative reconstruction technique. RADIATION DOSE: CTDIvol = 44.99 mGy, DLP = 796.11 mGy-cm COMPARISON: May 2015. History: headache FINDINGS: BRAIN AND EXTRA-AXIAL SPACES: Unremarkable. No intra- or extra-axial hemorrhage. No evidence of acute infarct. No intracranial mass or mass effect. There is preservation of the cazares/white matter interface. Posterior fossa structures are unremarkable. Ventricles are appropriate for age. No hydrocephalus. Basal cisterns are patent. BONES/JOINTS: Unremarkable. No discrete lytic or blastic abnormalities. SINUSES: Mild right nasal septal deviation and bilateral betsy bullosa. The completely included paranasal sinuses are well aerated with the exception of small mucous retention cyst noted in the left sphenoid sinus. MASTOID AIR CELLS: Unremarkable. Clear. ORBITS: Visualized globes, extraocular muscles, optic nerves and retrobulbar fat appear unremarkable. CT/Brain/Head without Contrast IMPRESSION: No acute findings in the head/brain. Electronically Signed: Aviva Herbert MD at 13:39 EST ,
--- NOTE | 2024-06-07 11:43 | EKG12_ITS ---
Test Reason : Blood Pressure : */* mmHG Vent. Rate : 56 BPM Atrial Rate : 56 BPM P-R Int : 136 ms QRS Dur : 76 ms QT Int : 404 ms P-R-T Axes : 20 61 34 degrees QTcB Int : 389 ms Sinus bradycardia Otherwise normal ECG Confirmed by ZOILA CARR, ROSCOE ([id number]), magazine editor ADEN STILES ([id number]) on 06/10/2024 6:11:24 AM Referred By: Confirmed By: ROSCOE CUMMINGS MD
--- NOTE | 2024-06-07 11:46 | EDS_ITS ---
<Statement entered by Dandre Laird DO - 06/07/24 15:18> Patient was seen and examined with physician programs assistant Ava All components of the history and physical confirmed and agreed. History of present illness and physical exam: Patient is a 48-year-old female with past medical history of migraines, gastric bypass surgery who presents to the emergency department with a chief complaint of lightheadedness and migraine headache. She states that she has had a headache for approximately 5 days that progressively worsened. She states that she tried to take Tylenol at home and notes that this was not helping her. She states that when she stood up she became very lightheaded she checked her blood pressure was noted that it was low at 95/50. States that she is checked it several times and ranged from 90-1 30 systolic. Patient did note that when she tries to turn her head to the left she has a sensation of the room is spinning. She states that this lasts approximately short period of time and resolved within 5 minutes which has happened in the past but she never sought out evaluation. She went to urgent care today and they advised her to come here further evaluation management. Patient denies any sick contacts. Review of systems: Agree with above Physical exam: Agree with above will add on that she completed finger-nose and [id number] test bilaterally without any difficulty. When patient turns her head to the left this exacerbate her symptoms was fatigable. MDM Patient is a 48-year-old female who presents to the emergency department chief complaint of migraine headache, lightheadedness, dizziness. On the differential diagnose includes but not limited to BPPV, orthostatic hypotension, near syncope. Patient be given IV fluids, meclizine and Zofran. Patient CBC reviewed showed no evidence leukocytosis white blood count 7.8, hemoglobin is 14.3, platelet count was noted be 219. Patient sodium was 130, potassium normal 3.8, creatinine normal 0.63. Patient's urinalysis reviewed showed no evidence of infection. Patient CT head and brain without contrast showed no acute findings. Patient chest x-ray reviewed by myself and by martín waller showed no acute cardiopulmonary processes. Patient's EKG reviewed by myself which showed sinus bradycardia with a rate of 56 bpm. On reevaluation the patient she is feeling much improved she would like to go home. Patient ambulated here in the emergency department any difficulty. Will give her prescription for meclizine was advised to follow-up with her primary care physician outpatient setting. She is encouraged to return with worsening symptoms or concerns. All question concerns answered she was discharged home in stable condition. Final impression: BPPV Dehydration Disposition: Patient will be discharged home in stable condition Supervising attending attestation: Dandre HARDWICK History of Present Illness Chief Complaint: Dizziness Narrative Narrative: 48-year-old female with past medical history of migraines, gastric bypass states yesterday around 3 PM she felt lightheaded. She checked her blood pressure and it was 95/50. She checked it multiple times and it was labile anywhere from 90 to 130 systolic. She describes that when she stands she feels like all the blood is draining from her head and she might pass out, but she also says she has room spinning for several seconds to minutes when she turns her head. She has had the spinning sensation in the past but it always resolved within 5 minutes or so so she never sought evaluation. She had continued symptoms today and went to urgent care. She states her ear examination was normal so they sent her here for further evaluation. She is requesting that her urine is screened for infection because she has had UTIs in the past without symptoms. She also reports over the last 5 days having a generalized headache which is similar to her prior migraines. She vomited once yesterday. She has no visual changes or diplopia. No focal motor or sensory changes. No fever or upper respiratory symptoms. [facility] Medical History (Updated 06/07/24 @ 13:56 by LASHON Lora) Elevated LFTs Seasonal allergies Wears glasses Depression Anxiety Alcohol use Low iron Excessive bleeding Migraine headache Loss of consciousness Gastric reflux Former smoker Obstructive sleep apnea CPAP (continuous positive airway pressure) dependence Asthma History of wrist fracture Back pain Home Medications ?Medication ?Instructions ?Recorded ?Last Taken ?Type albuterol sulfate 90 mcg/actuation 1 - 2 puff inhalation Q6H PRN PRN 01/16/19 01/31/21 08:00 History aerosol inhaler Sob &/Or Wheezing trazodone 50 mg tablet 25 - 150 mg PO QHS sleep 01/16/19 01/31/21 08:00 History lorazepam 0.5 mg tablet 0.5 mg PO BID PRN PRN Anxiety 12/13/20 Unknown History famotidine 20 mg tablet 20 mg PO BID 01/04/24 Unknown History meclizine 25 mg tablet 25 mg PO TID PRN dizziness 3 days 06/07/24 Unknown Rx #9 tabs Allergy/AdvReac Type Severity Reaction Status Date / Time pregabalin (From Lyrica) Allergy high bp Verified 06/07/24 11:08 Sulfa (Sulfonamide Allergy Hives Verified 06/07/24 11:08 Antibiotics) diphenhydramine (From AdvReac Mild SKIN Verified 06/07/24 11:09 Benadryl) adhesive tape (plastic tape) AdvReac Other Verified 06/07/24 11:08 Family History Father Hypertension Mother Migraines Sister Migraines Grandmother Diabetes Surgical History H/O wrist surgery History of hysterectomy History of tubal ligation History of tonsillectomy History of wisdom tooth extraction History of discectomy History of bilateral breast reduction surgery History of appendectomy Social History household members: children housing: house number of children: 3 current occupational status: employed 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 Eyes: Negative for visual change. CVS: Negative for palpitations, chest pain, syncope. Respiratory: Negative for shortness of breath, cough. GI: Positive for nausea, vomiting. Negative for abdominal pain. Neuro: Positive for headache, negative for motor/sensory dysfunction. EXAM Physical Exam Narrative Exam Narrative: CONST: Patient sitting in no acute distress. EYES: Normal inspection. PERRL, EOMI. Few beats of leftward nystagmus. ENT: Normal inspection, moist mucous membranes. NECK: Normal inspection. No meningismus. RESP: No respiratory distress, CTAB. CVS: Regular rate and rhythm, no murmur, no gallop. ABD: Soft and nontender, no guarding or rebound, nondistended. SKIN: Color normal, no rash, warm, dry, intact. EXTREMITIES: Normal appearance, no pedal edema. NEURO: Alert and answering questions appropriately. Cranial nerves II through XII intact PSYCH: Normal affect. Const Vital Signs: 06/07/24 11:09 06/07/24 13:00 Temperature 98.2 F Temperature Source Oral Pulse Rate 102 H 72 Respiratory Rate 18 16 Blood Pressure 155/96 H 137/84 H Blood Pressure Mean 115 99 Pulse Ox 99 100 Oxygen Delivery Method Room Air MDM MDM MDM Narrative Medical decision making narrative: Differential includes but not limited to peripheral versus central vertigo, dehydration, anemia, cardiac arrhythmia 48-year-old female presents with recent migraine and dizziness. She is describing vertigo with room spinning with head movements. It is reproducible when she turns her head to the left and she has a few beats of leftward nystagmus. She has a nonfocal neurological exam. CT brain is negative. Blood work, urinalysis, and chest x-ray are unremarkable. She was treated with IV fluids, meclizine and Zofran with some improvement. She is able to ambulate and would like to go home. She was concerned about her blood pressure but it has been stable while in the department around 130s/80-90s which does not require intervention. I prescribed meclizine as needed and recommended follow-up with her primary care doctor. At this time I do not suspect a central process but did discuss return precautions. She was discharged in stable condition Lab Data Attestation: I reviewed the patient's lab results. Labs: Laboratory Results - last 24 hr 06/07/24 06/07/24 11:45 12:10 WBC 7.8 RBC 4.78 Hgb 14.3 Hct 42.8 MCV 89.5 MCH 29.9 MCHC 33.4 RDW Std Deviation 42.5 RDW Coeff of Inessa 13.0 Plt Count 219 MPV 10.1 Immature Gran % (Auto) 0.400 Neut % (Auto) 65.7 Lymph % (Auto) 26.6 [place] % (Auto) 6.0 Eos % (Auto) 0.8 Baso % (Auto) 0.5 Absolute Neuts (auto) 5.1 Absolute Lymphs (auto) 2.08 Nucleated RBC % 0 Sodium 138 Potassium 3.8 Chloride 107 Carbon Dioxide 29.0 Anion Gap 3 L BUN 11 Creatinine 0.63 Estim Creat Clear Calc 115.56 Est GFR (MDRD) Af Amer 129 Est GFR (MDRD) Non-Af 107 BUN/Creatinine Ratio 17.5 Glucose 83 Calcium 9.5 Urine Color Yellow Urine Clarity Clear Urine pH 7.0 Ur Specific [place] 1.010 Urine Protein Negative Urine Glucose (UA) Normal Urine Ketones Negative Urine Occult Blood 10 H Urine Nitrite Negative Urine Bilirubin Negative Urine Urobilinogen Normal Ur Leukocyte Esterase Negative Urine RBC 0-5 SEEN Urine WBC 0-5 SEEN Ur Squamous Epith Cells 0-5 SEEN Urine Bacteria 1+ Urine Mucus 0 SEEN Radiography Diagnostic Testing: Clinical Impression(s) from Imaging Studies Brain CT 06/07/24 11:43 IMPRESSION: No acute findings in the head/brain. Electronically Signed: Aviva Herbert MD at 13:39 EST Reading Location ID and State: [facility] / [place] Tel , Service support , Chest X-Ray 06/07/24 12:30 IMPRESSION: No radiographic evidence of acute cardiopulmonary disease. Electronically Signed: Aviva Herbert MD at 13:42 EST Reading Location ID and State: [facility] / [place] Tel , Service support , ED attending interpretation of 1 view chest x-ray shows normal heart size and no acute infiltrate. EKG Initial EKG: Attestation: I personally reviewed and interpreted this EKG as follows: Interpretation: No Acute Injury Pattern and Sinus Bradycardia Comments: Sinus bradycardia 56 bpm Normal intervals, normal axis No acute ischemic changes Discharge Plan Triage Chief Complaint: Dizziness ED Midlevel Provider: Ava Conde ED Provider: Dandre Laird Dx/Rx/DC Orders Clinical Impression: Benign paroxysmal positional vertigo, Migraine Instructions: BPPV Prescriptions: New meclizine 25 mg tablet 25 mg PO TID PRN (Reason: dizziness) 3 Days Qty: 9 0RF No Action famotidine 20 mg tablet 20 mg PO BID trazodone 50 MG tablet 25 - 150 mg PO QHS Rx Instructions: 0.5-3 TAB AT BEDTIME albuterol sulfate 1 PUFF inhaler 1 - 2 puff inhalation Q6H PRN PRN (Reason: Sob &/Or Wheezing) lorazepam 0.5 mg tablet 0.5 mg PO BID PRN PRN (Reason: Anxiety) Primary Care Provider: Brigette Martin NP Referrals: Brigette Martin NP, [employer] [Primary Care Provider] - Activity Restrictions/Additional Instructions: Your testing is normal. I think your symptoms are most likely peripheral vertigo and prescribed meclizine to take as needed. If symptoms significantly worsen come back to the ER, otherwise follow-up with your primary care doctor. Print Language: Yi Disposition Disposition: Home, Self Care
[2024-06-07 11:52] LABS: Mucous, Urine 0 SEEN /hpf (<or=2+)
[2024-06-07 12:04] LABS: Color, Urine Yellow (Yellow); Glucose, Dipstick Normal (Normal); Ketone-Dipstick Negative (Negative); Leukocyte Esterase-Dipstick Negative /ul (Negative); Nitrite-Dipstick Negative (Negative); Occult Blood-Urine 10 /ul (Negative); Protein-Dipstick Negative (Negative); Urine Bilirubin Dipstick Negative (Negative); Urine Clarity Clear (Clear); Urine Urobilinogen Normal (Normal)
[2024-06-07] MEDS: 0.9% Normal Saline (1000mL) 1,000 ML 999 ML IV (12:07)
[2024-06-07] MEDS: Meclizine HCl 25 MG Tablet PO (12:22)
[2024-06-07] MEDS: Ondansetron 4 MG/2 ML Vial IV (12:22)
[2024-06-07 12:23] LABS: Absolute Lymphocyte Count 2.08 X10^3/uL (0.83-4.51); Absolute Neutrophil Count 5.1 X10^3/uL (2.0-7.7); Basophil# 0.04 X10^3/uL; Basophil% 0.5 % (0-1); Eosinophil# 0.06 X10^3/uL; Eosinophils% 0.8 % (0-5); Hematocrit 42.8 % (37-47); Hemoglobin 14.3 g/dL (12.0-15.0); Lymphocyte # 2.08 X10^3/ul (0.83-4.51); Lymphocyte % 26.6 % (19-41); Mean Corp Hgb Conc 33.4 g/dL (32-36); Mean Corpuscular Hgb 29.9 pg (27.0-32.0); Mean Corpuscular Volume 89.5 fL (81-99); Mean Platelet Vol. 10.1 fl (6.2-12.0); Monocyte# 0.47 X10^3/uL; NRBC Flagged by Analyzer 0 % (0-5); Neutrophil # 5.14 X10^3/uL (2.7-7.7); Neutrophil % 65.7 % (47-70); Platelet Count 219 K/mm3 (150-450); RBC Distribution Width SD 42.5 fl (35.1-43.9); Red Blood Count 4.78 M/mm3 (4.2-5.4); White Blood Count 7.8 K/mm3 (4.4-11.0)
[2024-06-07 12:28] LABS: Red Blood Cells-Urine 0-5 SEEN /hpf (0-5); Squamous Epithelial Cells - UA 0-5 SEEN /hpf (5-10); White Blood Cells 0-5 SEEN /hpf (0-5)
[2024-06-07 12:29] LABS: Bacteria 1+ /hpf (None Seen)
--- NOTE | 2024-06-07 12:30 | RAD_ITS ---
EXAM: XR CHEST, 1 VIEW CLINICAL INDICATION: dyspnea TECHNIQUE: Frontal view of the chest. COMPARISON: May 18, 2014, earlier exams to April 29, 2004. FINDINGS: LUNGS AND PLEURAL SPACES: Unremarkable. No consolidation or edema. No pneumothorax. No effusion. HEART: Unremarkable. Cardiac silhouette not enlarged. MEDIASTINUM: Central airways and mediastinal contour are unremarkable. BONES/JOINTS: Unremarkable. No acute fracture. SOFT TISSUES: Unremarkable. RAD/Chest 1 View (Portable) IMPRESSION: No radiographic evidence of acute cardiopulmonary disease. Electronically Signed: Aviva Herbert MD at 13:42 EST ,
[2024-06-07 12:35] LABS: Anion Gap 3 (5-15); BUN 11 mg/dL (7-18); BUN/Creat Ratio 17.5 RATIO (10-20); Calcium,Total 9.5 mg/dL (8.5-10.1); Chloride 107 mmol/L (98-107); Creatinine, Serum 0.63 mg/dL (0.55-1.02); EST Glomerular Filtration Rate 107 mL/min (>60); Est Glom Filt Rate - Afr Amer 129 mL/min (>60); Estimated Creatinine Clearance 115.56 ml/min; Glucose 83 mg/dL (74-106); Potassium 3.8 mmol/L (3.5-5.1); Sodium Level 138 mmol/L (136-145)
[2024-06-07 13:00] VITALS: BP 137/84; PULSE 72; RESP 16; O2SAT 100
[2024-06-07 14:00] VITALS: BP 148/74; PULSE 78; RESP 16; TEMP 36.6; O2SAT 99
== END 2024-06-07 14:17 | disposition home or self-care (01) ==
PROVIDERS: Physician Assistant; Emergency Provider Emergency Medicine; PCP Registered Nurse; Visit Provider Emergency Medicine
DX: H81.10 Benign paroxysmal vertigo, unspecified ear (principal); E86.0 Dehydration; Z87.891 Personal history of nicotine dependence; G43.909 Migraine, unspecified, not intractable, without status migrainosus; Z98.84 Bariatric surgery status; J45.909 Unspecified asthma, uncomplicated
CPT/HCPCS: 70450; 71045; 80048; 81001; 85025; 93005; 96361; 96374; 99284; A4216; J2405

== ENCOUNTER → 2025-04-15 | Outpatient (CLI) | payer OTHER, SELFPAY ==
--- NOTE | 2025-04-15 07:34 | US_ITS ---
PROCEDURE: ABD LIMITED W/ ELASTOGRAPHY REASON FOR EXAM: NAFLD COMPARISON: Prior study dated January 11, 2024. TECHNIQUE: Procedure Code: [id number] Modality: US Procedure: ABD LIMITED W/ ELASTOGRAPHY Right upper quadrant abdominal ultrasound. [employer] ElastQ Imaging shear wave elastography for non-invasive assessment of liver tissue stiffness. [employer] EPIQ Elite. FINDINGS: LIVER: Size: Unremarkable Length: 14.1 cm Echotexture: Mild degree of fatty infiltration. Contour: Normal Lesions: None identified Elastography: EQI Med: 5.2 kPa EQI Med Eleazar: 1.27 m/s IQR/Med: 15.4 %* GALLBLADDER: Multiple echogenic gallstones are identified. COMMON BILE DUCT: Normal measuring 2.7 mm . PANCREAS: Normal Visualized portions of the right kidney are unremarkable. No right upper quadrant ascites. US/ABD Limited w/ Elastography IMPRESSION: NO TO MILD HEPATIC FIBROSIS Mild degree of fatty infiltration of the liver. Multiple gallstones. Reference Values: SRU <1.37 m/s (5.7kPa): No to mild fibrosis 1.37 m/s - 2.2 m/s: Moderate to severe fibrosis >2.2 m/s (15kPa): Significant fibrosis / cirrhosis METAVIR Score F2 or higher: 1.34 m/s (5.7kPa) F3 or higher: 1.55 m/s (7.3kPa) F4: 1.80 m/s (10kPa) * If the IQR/Med is >30%, the variance in the measurements is a large and the a ccuracy of the measurement may be in question. Reading Location: [place] [id number]
--- OUTSIDE RECORDS SUMMARY | 2025-04-15 07:34 | XMS RPT_ITS | CCD ---
Author Organization [facility] Care Team Providers Care Hose Tender Name Role Phone Haagen ICE BAG ASSEMBLER.RENETTA, Brigette Primary Care Provider RAIN FOSTER Referring Unavailable HAAGEN, BRIGETTE Primary Care Unavailable Haagen ICE BAG ASSEMBLER.CAREER SERVICES OFFICER, Brigette Primary Care Provider Haagen ANESTHESIOLOGY FACULTY, ANESTHESIOLOGY FACULTY-C Brigette Primary Care Provider Haagen ANESTHESIOLOGY FACULTY, ANESTHESIOLOGY FACULTY-C Brigette Referring Provider Dr. Thomas Andrew Attending Provider Haagen ANESTHESIOLOGY FACULTY, ANESTHESIOLOGY FACULTY-C Brigette Primary Care Provider Haagen ANESTHESIOLOGY FACULTY, ANESTHESIOLOGY FACULTY-C Brigette Referring Provider FriendDr. Guzman Attending Provider Haagen ICE BAG ASSEMBLER.CAREER SERVICES OFFICER, Brigette Primary Care Provider Haagen ICE BAG ASSEMBLER.CAREER SERVICES OFFICER, Brigette Primary Care Provider Suppan ICE BAG ASSEMBLER.Remedios JACKSON Unavailable Javed Han MD Unavailable Suppan ICE BAG ASSEMBLER.RENETTA Remedios A Unavailable Suppan ICE BAG ASSEMBLER.Remedios JACKSON A Unavailable Haagen ANESTHESIOLOGY FACULTY-C, Brigette Primary Care Provider Haagen ANESTHESIOLOGY FACULTY-C, Brigette Referring Provider Dr. Thomas Andrew DO Attending Provider Thomas Andrew Attending Unavailable Haagen ANESTHESIOLOGY FACULTY, Brigette Referring Unavailable Haagen ANESTHESIOLOGY FACULTY, Brigette Primary Care Unavailable Friend, Thomas Attending Unavailable Friend, Thomas Referring Unavailable Haagen ANESTHESIOLOGY FACULTY, Brigette Primary Care Unavailable Friend, Thomas Attending Unavailable Haagen ANESTHESIOLOGY FACULTY, Brigette Primary Care Unavailable Haagen ANESTHESIOLOGY FACULTY, Brigette Referring Unavailable Friend, Thomas Attending Unavailable Haagen ANESTHESIOLOGY FACULTY, Brigette Primary Care Unavailable Haagen ANESTHESIOLOGY FACULTY, Brigette Referring Unavailable Friend, Thomas Attending Unavailable Friend, Thomas Referring Unavailable Haagen ANESTHESIOLOGY FACULTY, Brigette Primary Care Unavailable Dandre Laird Attending Unavailable Haagen ANESTHESIOLOGY FACULTY, Brigette Primary Care Unavailable HAAGEN, BRIGETTE Primary Care Unavailable HAAGEN, BRIGETTE Attending Unavailable HAAGEN, BRIGETTE Primary Care Unavailable SWANKTANINOHEMI Attending Unavailable HAAGEN, BRIGETTE Primary Care Unavailable SWANK, NOHEMI Referring Unavailable HAAGEN, BRIGETTE Primary Care Unavailable HAAGEN, BRIGETTE Attending Unavailable SELF Referring Unavailable BARB RODRÍGUEZA Attending Unavailable HAAGEN, BRIGETTE Primary Care Unavailable HAAGEN, BRIGETTE Primary Care Unavailable HAAGEN, BRIGETTE Referring Unavailable HAAGEN, BRIGETTE Primary Care Unavailable HAAGEN, BRIGETTE Attending Unavailable HAAGEN, BRIGETTE Attending Unavailable HAAGEN, BRIGETTE Primary Care Unavailable HAAGEN, BRIGETTE Primary Care Unavailable REMEDIOS PEPPER Attending Unavailable HAAGEN, BRIGETTE Primary Care Unavailable CARLY COLÓN Attending Unavailable HAAGEN, BRIGETTE Primary Care Unavailable VIK HENDERSON Attending Unava ilable DILCIA, LEORA P Referring Unavailable HAAGEN, BRIGETTE Primary Care Unavailable LISA RODRÍGUEZ Attending Unavailable HAAGEN, BRIGETTE Primary Care Unavailable REMEDIOS PEPPER Referring Unavailable HAAGEN, BRIGETTE Primary Care Unavailable CARLY COLÓN Attending Unavailable HAAGEN, BRIGETTE Primary Care Unavailable LIZA AVILA Attending Unavailable DILCIA, LEORA P Referring Unavailable HAAGEN, BRIGETTE Primary Care Unavailable HAAGEN, BRIGETTE Primary Care Unavailable DILCIA, LEORA P Referring Unavailable HAAGEN, BRIGETTE Primary Care Unavailable DILCIA, LEORA P Attending Unavailable ABELARDO CLAYTON Attending Unavailabl e LIZA AVILA Referring Unavailable HAAGEN, BRIGETTE Primary Care Unavailable GORTY, ELANA A Referring Unavailable HAAGEN, BRIGETTE Primary Care Unavailable HAAGENISABELY Attending Unavailable HAAGEN, BRIGETTE Primary Care Unavailable SELF Referring Unavailable GORTY, ELANA A Referring Unavailable HAAGEN, BRIGETTE Primary Care Unavailable JASON SCRUGGS Attending Unavailable ELANA NOEL Attending Unavailable HAAGEN, BRIGETTE Primary Care Unavailable Selin'HEATHER BAPTISTE Attending Unavailable VETOVITZ, LISA Referring Unavailable HAAGEN, BRIGETTE Primary Care Unavailable Selin'EMILEHEATHER VALENCIA Attending Unavailable VETOVITZ, LISA Referring Unavailable HAAGEN, BRIGETTE Primary Care Unavailable HAAGEN, BRIGETTE Primary Care Unavailable ELANA NOEL Referring Unavailable Karely PLASENCIA Attending Unavailable HAAGEN, [facility] Primary Care Unavailable HAAGEN, BRIGETTE Referring Unavailable LEORA HA Attending Unavailable HAAGEN, BRIGETTE Primary Care Unavailable MUSHTAQ LINCOLN Attending Unavailable HAAGEN, BRIGETTE Primary Care Unavailable HAAGEN, BRIGETTE Primary Care Unavailable DAVID PEPPERQUELINE A Attending Unavailable HAAGEN, [facility] Primary Care Unavailable SUPPAN, REMEDIOS A Referring Unavailable HAAGEN, BRIGETTE Primary Care Unavailable DIMMUSHTAQ GOMEZ Attending Unavailable MACK COLEY Attending Unavailable [facility] Primary Care Unavailable LIZA AVILA Referring Unavailable HAAGEN, [facility] Primary Care Unavailable VETOVITZ, LISA Attending Unavailable Allergies Allergy Classification Reported Allergen(s) Allergy Type Date of Onset Reaction(s) Facility diphenhydrAMINE (1 source) diphenhydrAMINE Drug Allergy 02-14-20 Intolerance, Other: See [facility] pregabalin (1 source) pregabalin Drug Allergy 08-04-19 11 Other: See [facility] Sulfonamides (antibiotic) (1 source) Sulfonamides (Antibiotic) Drug Allergy 08-04-19 11 [facility] (20 sources) pregabalin; Translations: [PREGABALIN] Drug Allergy 08-04-19 11 Other: See [facility] (20 sources) Seasonal allergy; Translations: [SEASONAL ALLERGIES] Propensity to adverse reactions 08-04-19 11 Other: See [facility] (20 sources) Sulfonamides (Antibiotic); Translations: [SULFA (SULFONAMIDE ANTIBIOTICS)] Propensity to adverse reactions to drug 08-04-19 11 [facility] (20 sources) diphenhydrAMINE; Translations: [DIPHENHYDRAMINE] Drug Allergy 02-14-20 Intolerance, Other: See [facility] (5 sources) Adhesive Tape; Translations: [adhesive tape] Propensity to adverse reactions 04-05-20 Other [facility] Comment on above: BLISTERS (4 sources) Sulfonamides (Antibiotic) Allergy to substance 07-28-19 Hives [facility] (1 source) diphenhydrAMINE Drug Allergy 06-07-19 [facility] (1 source) pregabalin Drug Allergy 06-07-19 [facility] (1 source) Sulfonamides (Antibiotic) Drug allergy (disorder) 06-07-19 [facility] Medications Current Medications Medication Drug Class(es) Dates Sig (Normalized) Sig (Original) [id number] 200 actuat albuterol 0.09 mg/actuat metered dose inhaler (20 sources) beta2-Adrenergic Agonist Start: 01-12-2020 End: 11-17-2024 take 2 puff(s) by inhalation four times daily as needed albuterol HFA (PROVENTIL HFA, VENTOLIN HFA) 90 mcg/actuation inhaler Indications: Mild intermittent asthma without complication (HCC) Inhale 2 puffs as instructed four times a day as needed. 18 g 5 11/17/2024 Active Start: 01-16-2019 Albuterol Sulf ate 1 PUFF inhaler Active 1 - 2 NMA INHALATION EVERY 6 HOURS NEEDED as needed for Sob &/Or Wheezing January 16, 2019 12:00am Start: 01-16-2019 take 1 puff(s) by in halation every six hours as needed Albuterol Sulfate Active 1 - 2 PUFF INHALATION EVERY 6 HOURS NEEDED January 16, 2019 12:00am Comment on above: Inhale 2 Puffs as in structed four times daily as needed. Inhale 2 Puffs as in structed four times a day as needed. ASHWAGANDHA EXTRACT ORAL (20 sources) ASHWAGANDHA EXTR ACT ORAL Take by mouth once daily. Active azithromycin 250 mg oral tablet (1 source) Macrolide Antimicrobial Start: End: azithromycin (ZITHROMAX Z-SCOTT) 250 mg tablet Indications: URI, acute Take 2 tablets day one, then, 1 tablet daily until gone. 6 tablet 02/08/2024 02/13/2024 Active Budesonide / formoterol (10 sources) Corticosteroid, beta2-Adrenergic Agonist Start: End: 026 take 2 puff(s) by inhalation twice daily budesonide-formotero l (SYMBICORT) 160-4.5 mcg/actuation inhaler Indications: Mild intermittent asthma, uncomplicated (HCC) Inhale 2 puffs as instructed two times a day. 3 each 3 01/09/2025 01/09/2026 Active Start: 11-17-2024 take 2 puff(s) by in halation twice daily budesonide-formoterol (SYMBICORT) 160-4.5 mcg/actuation inhaler Inhale 2 puffs as instructed two times a day. 1 each 5 11/17/2024 Active cyclobenzaprine hydrochloride 10 mg oral tablet (2 sources) Muscle Relaxant Start: 02-08-2024 End: 02-22-2024 take 1 tablet by mouth three times daily as needed for pain cyclobenzaprine (FLEXERIL) 10 mg tablet Indications: Neck pain on left side , Acute pain of left shoulder Take 1 tablet by mouth three times a day as needed for muscle spasm or pain for up to 10 days. 30 tablet 02/08/2024 02/22/2024 Active doxycycline hyclate 100 mg oral tablet (2 sources) Tetracycline-c lass Drug Start: 03-28-2024 End: 04-07-2024 take 1 tablet by mouth twice daily doxycycline (VIBRA-TABS) 100 mg tablet Indications: Acute bronchitis, unspecified organism Take 1 tablet by mouth two times a day for 10 days. 20 tablet 03/28/2024 04/07/2024 Active Start: 10-15-2023 End: 10-25-2023 take 1 tablet by mouth twice daily doxycycline (VIBRA-TABS) 100 mg tablet Indications: Acute cough Take 1 tablet by mouth two times a day for 10 days. 20 tablet 0 10/15/2023 10/25/2023 Active enteric contrast (will be provided with radiology test) (1 source) Start: 09-09-2024 End: 09-10-2024 enteric contrast (will be provided with radiology test) For CT ABD/PEL W IVCON Routine order Administer, As Directed One Time Only, via Oral, Rectal, both Oral and Rectal, Enteric Tube, Stoma or Indwelling Catheter, Enteric Contrast as designated per enteric contrast guidelines 1 each 09/09/2024 09/10/2024 Active famotidine 20 mg oral tablet (20 sources) Histamine-2 Receptor Antagonist Start: 05-23-2023 End: 03-07-2025 take 1 tablet by mouth twice daily as needed famotidine (PEPCID) 20 mg tablet Indications: Gastroesophageal reflux disease without esophagitis Take 1 tablet by mouth two times a day as needed. 180 tablet 3 03/07/2024 03/07/2025 Active Comment on above: Take 1 tablet by maximo two times a day as needed. fluconazole 150 mg oral tablet (2 sources) Azole Antifungal Start: 03-28-2024 End: 03-29-2024 take 1 tablet by mouth once daily fluconazole (DIFLUCAN) 150 mg tablet Indications: Vaginal yeast infection Take 1 tablet by mouth once daily for 1 day. 1 tablet 03/28/2024 03/29/2024 Active Start: 02-08-2024 End: 02-08-2024 fluconazole (DIFLUCAN) 150 m g tablet Indications: Dulce vaginitis Take 1 tablet by mouth one time only for 1 dose. Repeat in 3 days as needed. 2 tablet 02/08/2024 02/08/2024 Active fluocinonide 0.0005 mg/mg topical ointment (2 sources) Corticosteroid Start: 06-19-2022 End: 07-03-2022 fluocinonide (LIDEX) 0.05 % ointment Apply to affected area twice daily for 14 days. 30 g 0 06/19/2022 07/03/2022 Active Comment on above: Apply to affected ar ea twice daily for 14 days. gabapentin 600 mg oral tablet (20 sources) Anti-epileptic Agent Start: 03-07-2024 End: 09-24-2024 take 1 tablet by mouth three times daily gabapentin (NEURONTIN) 600 mg tablet Indications: Cervical radiculopathy Take 1 tablet by mouth three times a day for 180 days. 90 tablet 5 03/28/2024 Active Start: 02-22-2024 End: 05-22-2024 take 1 capsule by mouth three times daily gabapentin (NEURONTIN) 300 mg capsule Indications: Cervical radiculopathy Take 1 capsule by mouth three times a day for 90 days. 90 capsule 2 02/22/2024 03/07/2024 Discontinued iv contrast (will be provided with radiology test) (1 source) Start: 09-09-2024 End: 09-10-2024 iv contrast (will be provided with radiology test) CT ABD/PEL -Inject, intravenously, once for 1 dose.No IV access, insert saline lock prior to the beginning of sedation, infusion, injection of imaging exam. Discontinue saline lock post exam. If Pt. has a central line or IVAD, may access for administration according to line specific nursing protocol. Once exam is complete flush line and de-access according to line specific nursing protocol in the CT contrast administration guidelines link. 1 each 09/09/2024 09/10/2024 Active loratadine 10 mg oral tablet (11 sources) Start: 05-23-2023 End: 02-22-2024 take 1 tablet by mouth once daily loratadine (CLARITIN) 10 mg tablet Take 1 tablet by mouth once daily for 5 days. 5 tablet 05/23/2023 02/22/2024 Discontinued (Course of therapy completed) Magnesium (20 sources) MAGNESIUM ORAL T cam by mouth. Active methylPREDNISolone (3 sources) Corticosteroid Start: 05-05-2024 End: 05-11-2024 methylPREDNISolone (MEDROL, SCOTT,) 4 mg Dose-Pack Indications: Injury of left knee, initial encounter Take as instructed per package. 21 tablet 05/05/2024 05/11/2024 Active Start: 02-08-2024 End: 02-14-2024 methylPREDNISolone (MEDROL, SCOTT,) 4 mg Dose-Pack Indications: Neck pain on left side , Acute pain of left shoulder , URI, acute , Acute non-recurrent pansinusitis Follow dosing instructions, take with food. 21 tablet 02/08/2024 02/14/2024 Active oxyCODONE hydrochloride 5 mg oral tablet (1 source) Opioid Agonist Start: 04-27-2023 End: 05-02-2023 take 1 tablet by mouth every eight hours as needed for pain oxyCODONE IR (ROXICODONE) 5 mg immediate release tablet Indications: Postoperative pain Take 1 tablet by mouth every 8 hours as needed for pain for up to 5 days. 5 tablet 0 04/27/2023 05/02/2023 Active Comment on above: Take 1 tablet by maximo every 8 hours as needed for pain for up to 5 days. polyethylene glycol 3350 [id number] mg / potassium chloride 2970 mg / sodium bicarbonate 6740 mg / sodium chloride 5860 mg / sodium sulfate 43734 mg powder for oral solution (1 source) Osmotic Laxative Start: 12-09-2021 End: 12-09-2021 peg 3350-Electrolytes (GOLYTELY) 236-22.74-6.74 -5.86 gram suspension Take 4,000 mL by mouth one time only for 1 dose. 1 Each 0 12/09/2021 12/09/2021 Active Comment on above: Take 4,000 mL by maximo th one time only for 1 dose. predniSONE 20 mg oral tablet (20 sources) Start: 11-17-2024 take 2 tablets by mouth once daily predniSONE (DELTASONE) 20 mg tablet Indications: Rib pain Take 2 tablets by mouth once daily. 10 tablet 11/17/2024 Active Start: 06-27-2024 End: 12-24-2024 take 1 tablet by mouth once daily Prednisone 20 mg tablet Discontinued 20 mg PO daily 7 0 June 27, 2024 1:00am December 24, 2024 7:26am Start: 02-22-2024 End: 02-27-2024 take 1 tablet by mouth once daily predniSONE (DELTASONE) 50 mg Indications: Cervical radiculopathy Take 1 tablet by mouth once daily for 5 days. 5 tablet 02/22/2024 02/27/2024 Active Start: 10-15-2023 End: 02-08-2024 take 2 tablets by mouth once daily predniSONE (DELTASONE) 20 mg tablet Indications: Acute cough Take 2 tablets by mouth once daily. 10 tablet 10/15/2023 02/08/2024 Discontinued Start: 03-02-2023 End: 03-07-2023 take 2 tablets by mouth once daily predniSONE (DELTASONE) 20 mg tablet Indications: Mild intermittent asthma without complication , URI, acute Take 2 tablets by mouth once daily for 5 days. 10 tablet 0 03/02/2023 03/07/2023 Active Start: 10-10-2022 End: 10-22-2022 predniSONE (DELTASONE) 10 mg tablet Indications: Dermatitis Take 4 tabs daily x 3 days, then 3 tabs x 3 days, 2 tabs x 3 days, then 1 tab x3 days with food. 30 tablet 0 10/10/2022 10/22/2022 Active Start: 12-06-2020 End: 12-13-2020 take 3 tablets by mouth once daily Prednisone 20 mg tablet Discontinued 60 mg PO DAILY 15 December 06, 2020 12:00am December 13, 2020 8:51am Start: 12-06-2020 End: 12-13-2020 take 60 mg by mouth once daily Prednisone Discontinued 60 MG PO DAILY December 06, 2020 12:00am December 13, 2020 8:51am Comment on above: Take 4 tabs daily x 3 days, then 3 tabs x 3 days, 2 tabs x 3 days, then 1 tab x3 days with food. Take 2 tablets by [facility] once daily for 5 days. Scopolamine Base 1 mg over 3 days patch 3 day (1 source) Start: Scopolamine Base 1 mg over 3 days patch 3 day Active 1 NMA TD Every 3 Days 4 June 27, 2024 1:00am traZODone hydrochloride 150 mg oral tablet (20 sources) Serotonin Reuptake Inhibitor Start: End: take 1 tablet by mouth once daily at bedtime traZODone (DESYREL) 150 mg tablet Indications: Chronic insomnia Take 1 tablet by mouth daily at bedtime. 90 tablet 3 03/07/2024 Active Start: 01-16-2019 take 0.5-3 tablets b y mouth at bedtime Trazodone Active 25 - 150 MG PO AT BEDTIME January 16, 2019 12:00am 0.5-3 TAB AT BEDTIME Start: 09-20-2018 take 0.5-3 tablets b y mouth at bedtime Trazodone 50 MG tablet Active 25 - 150 mg PO AT BEDTIME January 16, 2019 12:00am sleep 0.5-3 TAB AT BEDTIME Start: 09-20-2018 End: 03-02-2023 traZODone (DESYREL) 50 mg ta blet Taking 3 tabs 0 09/20/2018 03/02/2023 Discontinued (Duplicate Entry) Comment on above: TAKE 1/2 TO 3 TABLET BY MOUTH AT BEDTIME NEEDED Taking 3 tabs Take 150 mg by mouth daily at bedtime. uyqdqyjh-ijnl-ripmd-o reg-capry 100 mg-150 mg- 50 mg-150 mg cap (20 sources) take 1 capsule by mouth once daily rnkotmxy-hmmy-upknf- oreg-capry 100 mg-150 mg- 50 mg-150 mg cap Take by mouth once daily. Active vitamin b complex capsule (20 sources) take 1 capsule by mouth once daily vitamin b complex capsule Take 1 capsule by mouth once daily. Active zinc acetate 50 mg oral capsule (20 sources) Zinc Acetate, Or al, 50 mg (zinc) cap Take by mouth once daily. Active Completed/Discontinued Medications Medication Drug Class(es) Dates Sig (Normalized) Sig (Original) acetaminophen 325 mg / HYDROcodone bitartrate 7.5 mg oral tablet (4 sources) Opioid Agonist Start: 02-04-2021 End: 02-14-2021 Hydrocodone-Acetamino phen 7.5-325 mg tablet Discontinued 1 {tbl} PO EVERY 6 HOURS as needed for pain 40 10 February 04, 2021 February 13, 2021 12:00am February 14, 2021 12:01am Degeneration of intervertebral disc of lumbosacral region Lumbosacral radiculopathy at L5 Other intervertebral disc degeneration, lumbosacral region Radiculopathy, lumbosacral region Start: 02-04-2021 End: 02-14-2021 take 1 tablet by mouth every six hours Hydrocodone-Acetaminophen Discontinued 1 TABLET PO EVERY 6 HOURS 40 February 04, 2021 February 14, 2021 12:01am ARIPiprazole 5 mg oral tablet (20 sources) Atypical Antipsychotic Start: 01-18-2021 End: 02-08-2024 take 1 tablet by mouth at bedtime Aripiprazole 5 mg Tablet Discontinued 5 mg PO AT BEDTIME January 18, 2021 12:00am January 04, 2024 10:20am sleep Comment on above: Take 5 mg by mouth o nce daily. Take 5 mg by mouth d aily at bedtime. breath-actuated 120 actuat beclomethasone dipropionate 0.08 mg/actuat metered dose inhaler (1 source) Corticosteroid Start: 05-21-2020 End: 01-28-2021 take 2 puff(s) by inhalation twice daily beclomethasone (QVAR REDIHALER) 80 mcg/actuation inhaler Indications: Mild persistent asthma in adult without complication Inhale 2 Puffs as instructed twice daily. 1 Each 1 05/21/2020 01/28/2021 Discontinued betamethasone 3 mg/ml / betamethasone acetate 3 mg/ml injectable suspension (6 sources) Corticosteroid Start: 01-01-2025 End: 01-01-2025 betamethasone acetate-betamethas one sodium phosphate 6 mg injection (CELESTONE) Start: 01-01-2025 End: 01-01-2025 6 mg, Injection - FOR ORTHO USE ONLY, ONCE, 1 dose, Starting on Yadira 01/01/25 at 1213, Until Yadira 01/01/25 at 1213 Start: 09-01-2024 End: 09-01-2024 betamethasone acetate-betame thasone sodium phosphate 6 mg injection (CELESTONE) Start: 09-01-2024 End: 09-01-2024 6 mg, Injection - FOR ORTHO USE ONLY, ONCE, 1 dose, Starting on 09/01/24 at 1510, Until 09/01/24 at 1510 Start: 05-19-2024 End: 05-19-2024 betamethasone acetate-betame thasone sodium phosphate 6 mg injection (CELESTONE) Start: 05-19-2024 End: 05-19-2024 6 mg, Injection - FOR ORTHO USE ONLY, ONCE, 1 dose, Starting on 05/19/24 at 1012, Until 05/19/24 at 1012 24 hr buPROPion hydrochloride 150 mg extended release oral tablet (20 sources) Aminoketone Start: 12-13-2020 End: 01-04-2024 Bupropion Hcl 150 mg tablet extended release 24 hr Discontinued 300 mg PO DAILY December 13, 2020 8:49am January 04, 2024 10:20am mood Start: 12-13-2020 take 300 mg by mouth once tania y Bupropion Hcl Active 300 MG PO DAILY December 13, 2020 8:49am Start: 01-16-2019 End: 12-13-2020 Bupropion Hcl 150 MG tablet extended release 24 hr Discontinued 450 mg PO DAILY January 16, 2019 12:00am December 13, 2020 8:55am Start: 01-16-2019 End: 12-13-2020 take 450 mg by mouth once daily Bupropion Hcl Disconti nued 450 MG PO DAILY January 16, 2019 12:00am December 13, 2020 8:55am Start: 11-11-2018 End: 09-04-2023 take 1 tablet by mouth once daily buPROPion XL (WELLBUTRIN XL) 300 mg 24 hr tablet Take 300 mg by mouth once daily. 0 11/11/2018 09/04/2023 Discontinued (Other) Comment on above: Take 300 mg by mouth once daily. cholecalciferol 1.25 mg oral capsule (19 sources) Vitamin D Start: 06-16-19 End: 03-02-20 take 1 capsule by mouth every week cholecalciferol, Vitamin D3, (VITAMIN D3) 1,250 mcg (50,000 unit) cap capsule Take 1 capsule by mouth one time a week. 12 capsule 06/16/2022 03/02/2023 Discontinued Comment on above: Take 1 capsule by [facility] one time a week. cloNIDine hydrochloride 0.1 mg oral tablet (4 sources) Central alpha-2 Adrenergic Agonist Start: 02-02-20 End: 12-14-19 take 1 tablet by mouth at bedtime Clonidine Hcl 0.1 MG tablet Discontinued 0.1 mg PO AT BEDTIME February 01, 2019 12:00am December 13, 2020 8:55am CPAP (20 sources) Start: 06-14-19 End: 02-08-20 CPAP Annual supplies: auto titrating PAP device 5-10 cmH2O suitable mask per pt preference, chin strap, head gear, humidity, tubing, lifetime supplies. G47.33 ALISHA 1 Each 11 06/14/2022 02/08/2024 Discontinued Start: 06-14-2022 CPAP Annual sylvester pplies: auto titrating PAP device 5-10 cmH2O suitable mask per pt preference, chin strap, head gear, humidity, tubing, lifetime supplies. G47.33 ALISHA 1 Each 11 06/14/2022 Active Start: 09-01-2020 End: 12-01-2020 CPAP New mask: suitable mask per pt preference (hybrid or nasal pillow please), chin strap, head gear, humidity, tubing, lifetime supplies. G47.33 ALISHA 1 Device 11 09/01/2020 12/01/2020 Discontinued Start: 07-20-2020 End: 06-14-2022 CPAP auto titrating PAP felicita ce 5-10 cmH2O with humidification. A medium [employer] Eson 2 nasal mask without chin strap to be used. 1 Device 07/20/2020 06/14/2022 Discontinued Start: 07-20-2020 CPAP auto titr ating PAP device 5-10 cmH2O with humidification. A medium [employer] Eson 2 nasal mask without chin strap to be used. 1 Device 0 07/20/2020 Active Comment on above: auto titrating PAP d evice 5-10 cmH2O with humidification. A medium [employer] Eson 2 nasal mask without chin strap to be used. Annual supplies: aut o titrating PAP device 5-10 cmH2O suitable mask per pt preference, chin strap, head gear, humidity, tubing, lifetime supplies. G47.33 ALISHA dextromethorphan hydrobromide 3 mg/ml / promethazine hydrochloride 1.25 mg/ml oral solution (6 sources) Phenothiazine, Uncompetitive R-izxuls-X-aspartate Receptor Antagonist, Sigma-1 Agonist Start: take 5 mL by mouth four times daily as needed Promethazine-DM (PHENERGAN-DM) 6.25-15 mg/5 mL syrup Indications: Mild intermittent asthma without complication , URI, acute Take 5 mL by mouth four times a day as needed. 120 mL 0 03/02/2023 Active Comment on above: Take 5 mL by mouth f our times a day as needed. escitalopram 10 mg oral tablet (20 sources) Serotonin Reuptake Inhibitor Start: End: escitalopram oxalate (LEXAPRO) 10 mg tablet Taking one tablet daily. 09/04/2023 02/08/2024 Discontinued Start: 05-28-2017 End: 01-04-2024 take 1 tablet by mouth once daily Escitalopram Oxalate 20 MG tablet Discontinued 20 mg PO DAILY January 16, 2019 12:00am January 04, 2024 10:20am mood Comment on above: Take one half tablet daily Taking one tablet daily. Taking one tablet da marilee. fluticasone / salmeterol (20 sources) Corticosteroid, beta2-Adrenergic Agonist Start: 10-15-2023 End: 11-17-2024 take 1 puff(s) by mouth twice daily fluticasone-salmeterol (ADVAIR DISKUS) 250-50 mcg/dose inhaler Indications: Acute cough Inhale 1 Puff as instructed two times a day. Rinse and gargle mouth after use with water. 1 Each 2 10/15/2023 11/17/2024 Discontinued Start: 10-15-2023 take 1 puff(s) by [facility] twice daily fluticasone-salmeterol (ADVAIR DISKUS) 250-50 mcg/dose inhaler Indications: Acute cough Inhale 1 Puff as instructed two times a day. Rinse and gargle mouth after use with water. 1 Each 2 10/15/2023 Active 2 ml ketorolac tromethamine 30 mg/ml injection (4 sources) Nonsteroidal Anti-inflammatory Drug, Cyclooxygenase Inhibitor Start: 11-17-2024 End: 11-17-2024 keTORolac 60 mg injection (Toradol) Start: 11-17-2024 End: 11-17-2024 60 mg, INTRAMUSCULAR, ONCE, 1 dose, On Sun11/17/24 at 1000, Ketorolac (Toradol) is indicated for the short-term (up to 5 days) management of moderately severe acute pain. Continuation of ketorolac (Toradol) beyond 5 days increases the risk of developing serious adverse events. Please verify the duration of therapy for ketorolac (Toradol). Start: 06-11-2024 End: 06-11-2024 keTORolac 60 mg injection (T oradol) Start: 06-11-2024 End: 06-11-2024 60 mg, INTRAMUSCULAR, ONCE, 1 dose, On Sun06/11/24 at 1030, Ketorolac (Toradol) is indicated for the short-term (up to 5 days) management of moderately severe acute pain. Continuation of ketorolac (Toradol) beyond 5 days increases the risk of developing serious adverse events. Please verify the duration of therapy for ketorolac (Toradol). 10 ml lidocaine hydrochloride 10 mg/ml injection (6 sources) Antiarrhythmic, Amide Local Anesthetic Start: 01-01-2025 End: 01-01-2025 lidocaine (PF) 10 mg/mL (1 %) 5 mL injection (XYLOCAINE) Start: 01-01-2025 End: 01-01-2025 5 mL, Injection - FOR ORTHO USE ONLY, ONCE, 1 dose, Starting on Yadira 01/01/25 at 1213, Until Yadira 01/01/25 at 1213 Start: 09-01-2024 End: 09-01-2024 lidocaine (PF) 10 mg/mL (1 % ) 5 mL injection (XYLOCAINE) Start: 09-01-2024 End: 09-01-2024 5 mL, Injection - FOR ORTHO USE ONLY, ONCE, 1 dose, Starting on Sun09/01/24 at 1510, Until Sun09/01/24 at 1510 Start: 05-19-2024 End: 05-19-2024 lidocaine (PF) 10 mg/mL (1 % ) 5 mL injection (XYLOCAINE) Start: 05-19-2024 End: 05-19-2024 5 mL, Injection - FOR ORTHO USE ONLY, ONCE, 1 dose, Starting on 05/19/24 at 1012, Until Sun05/19/24 at 1012 LORazepam 0.5 mg oral tablet (20 sources) Benzodiazepine Start: 05-28-2017 End: 05-11-2023 take 1 tablet by mouth twice daily as needed for anxiety Lorazepam 0.5 MG tablet Discontinued 0.5 mg PO TWICE DAILY NEEDED as needed for Anxiety January 16, 2019 12:00am December 13, 2020 8:55am Comment on above: Take 0.5 mg by mouth twice daily as needed. meclizine hydrochloride 25 mg oral tablet (1 source) Antiemetic Start: 06-07-2024 End: 12-24-2024 take 1 tablet by mouth three times daily as needed for dizziness Meclizine 25 mg tablet Discontinued 25 mg PO THREE TIMES A DAY as needed for dizziness 9 3 0 June 07, 2024 2:57pm December 24, 2024 7:26am nystatin [id number] unt/ml topical cream (14 sources) Polyene Antifungal Start: 08-02-2022 End: 03-02-2023 nystatin (MYCOSTATIN) cream Indications: Candidiasis, cutaneous Apply to affected area twice daily. Use for 1 week longer than it takes for rash to go away. 30 g 1 08/02/2022 03/02/2023 Discontinued Comment on above: Apply to affected ar ea twice daily. Use for 1 week longer than it takes for rash to go away. ondansetron 4 mg oral tablet (12 sources) Serotonin-3 Receptor Antagonist Start: 04-27-2023 End: 02-08-2024 take 1 tablet by mouth every eight hours as needed ondansetron (ZOFRAN) 4 mg tablet Take 1 tablet by mouth every 8 hours as needed. 20 tablet 1 04/27/2023 02/08/2024 Discontinued Comment on above: Take 1 tablet by maximo th every 8 hours as needed. pantoprazole 20 mg delayed release oral tablet (3 sources) Proton Pump Inhibitor Start: 04-27-2023 End: 09-04-2023 take 1 tablet by mouth once daily pantoprazole DR (PROTONIX) 20 mg tablet TAKE 1 TABLET BY MOUTH EVERY DAY 90 tablet 1 05/23/2023 09/04/2023 Discontinued Comment on above: Take 1 tablet by maximo th once daily. TAKE 1 TABLET BY MAXIMO TH EVERY DAY phentermine hydrochloride 30 mg oral capsule (19 sources) Sympathomimetic Amine Anorectic Start: 09-15-2022 End: 01-04-2024 take 1 capsule by mouth once daily 2 hour(s) after breakfast Phentermine 30 mg capsule Discontinued 30 mg PO DAILY 30 September 15, 2022 12:00am January 04, 2024 10:21am must administer 2 hours after breakfast Comment on above: Take 30 mg by mouth once daily. Dr Andrew 12 hr pseudoephedrine hydrochloride 120 mg extended release oral tablet (1 source) alpha-Adrenergic Agonist Start: 06-27-2024 End: 12-24-2024 take 1 tablet by mouth every twelve hours Pseudoephedrine Hcl (Sudafed 12 Hour) 120 mg tablet extended release Discontinued 120 mg PO Q12H June 27, 2024 1:00am December 24, 2024 7:26am 24 hr QUEtiapine 50 mg extended release oral tablet (4 sources) Atypical Antipsychotic Start: 01-16-2019 End: 12-13-2020 take 1 tablet by mouth every twenty-four hours as needed for sleep Quetiapine 50 MG tablet extended release 24 hr Discontinued 50 mg PO NEEDED as needed for Sleep January 16, 2019 12:00am December 13, 2020 8:52am triamcinolone acetonide 0.25 mg/ml topical cream (1 source) Corticosteroid Start: 11-15-2020 End: 12-15-2020 triamcinolone (KENALOG) 0.025 % cream Indications: Dermatitis due to plants, including poison ema, sumac, and oak Apply 1 application to affected area twice daily. 30 g 11/15/2020 12/15/2020 Discontinued ursodiol 500 mg oral tablet (20 sources) Bile Acid Start: 04-27-2023 End: 10-24-2023 take 0.5 tablet by mouth twice daily Ursodiol 500 mg tablet Take 0.5 tablets by mouth two times a day. Dr Andrew 90 tablet 1 04/27/2023 09/19/2023 Discontinued Start: 09-15-2022 End: 01-04-2024 Ursodiol (Mary 250) 250 mg t ablet Discontinued 250 mg PO TWICE A DAY 60 3 February 12, 2023 7:09am January 04, 2024 10:21am Comment on above: Take 250 mg by mouth twice daily. Dr Andrew Take 0.5 tablets by mouth two times a day. Dr Andrew Problems Active Problems Problem Classification Problem Date Documented Da te Episodic/Chronic Abdominal hernia (19 sources) Incisional hernia; Translations: [Incisional hernia without obstruction or gangrene] Onset: 5 09-09-2024 Episodic Acute bronchitis (1 source) Acute bronchitis; Translations: [Acute bronchitis, unspecified] 03-28-2024 Episodic Anxiety disorders (20 sources) Mixed anxiety and depressive disorder; Translations: [Other specified anxiety disorders] Onset: 9 02-20-2019 Chronic Asthma (20 sources) Mild intermittent asthma; Translations: [Mild intermittent asthma, uncomplicated] Onset: 0 01-12-2020 Chronic Coagulation and hemorrhagic disorders (20 sources) von Willebrand disorder; Translations: [Von Willebrand disease] Onset: 3 01-26-2021 Chronic Complications of surgical procedures or medical care (4 sources) Vaginal bleeding; Translations: [Postoperative hemorrhage of vagina] 02-01-2019 Episodic Esophageal disorders (1 source) Gastroesophageal reflux disease without esophagitis; Translations: [Gastro-esophageal reflux disease without esophagitis] 03-07-2024 Chronic Essential hypertension (2 sources) Essential hypertension; Translations: [Essential (primary) hypertension] 03-07-2024 Chronic Headache; including migraine (20 sources) Refractory migraine without aura; Translations: [Migraine without aura, intractable, without status migrainosus] Onset: 9 02-20-2019 Chronic Headache; including migraine (1 source) Headache; Translations: [Headache, unspecified headache type] 06-11-2024 Episodic Headache; including migraine (1 source) Headache; including migraine; Translations: [Headache, unspecified headache type] Onset: 5 Malaise and fatigue (1 source) Other fatigue; Translations: [Fatigue, unspecified type] Onset: 3 Episodic Miscellaneous mental health disorders (7 sources) Eating disorder; Translations: [Eating disorder, unspecified] Chronic Mood disorders (5 sources) Recurrent major depression in full remission; Translations: [Major depressive disorder, recurrent, in full remission] Chronic Mycoses (3 sources) Candidiasis of skin; Translations: [Candidiasis of skin and nail] Episodic Nutritional deficiencies (20 sources) Vitamin D deficiency, unspecified; Translations: [Vitamin D deficiency] Onset: 3 Chronic Osteoarthritis (3 sources) Primary gonarthrosis, bilateral; Translations: [Bilateral primary osteoarthritis of knee] Onset: 5 05-19-2024 Chronic Other and unspecified benign neoplasm (2 sources) Pigmented skin lesion ; Translations: [Melanocytic nevi, unspecified] 11-28-2024 Episodic Other and unspecified benign neoplasm (1 source) Multiple benign melanocytic nevi ; Translations: [Melanocytic nevi, unspecified] 01-13-2025 Episodic Other and unspecified benign neoplasm (1 source) Senile angioma; Translations: [Hemangioma of skin and subcutaneous tissue] 01-13-2025 Episodic Other and unspecified benign neoplasm (2 sources) Melanocytic nevi, unspecified; Translations: [Multiple benign nevi] Onset: 5 Episodic Other and unspecified benign neoplasm (1 source) Hemangioma of skin and subcutaneous tissue; Translations: [Sanchez angioma] Onset: 5 Episodic Other connective tissue disease (3 sources) Diastasis recti; Translations: [Separation of muscle (nontraumatic), other site] 09-09-2024 Episodic Other gastrointestinal disorders (8 sources) History of sleeve gastrectomy; Translations: [Bariatric surgery status] 08-21-2023 Episodic Other gastrointestinal disorders (5 sources) History of bariatric surgical procedure; Translations: [Bariatric surgery status] 08-21-2023 Episodic Other gastrointestinal disorders (2 sources) Bariatric surgery status; Translations: [History of bariatric surgery] Onset: 5 Episodic Other inflammatory condition of skin (5 sources) Intertrigo; Translations: [Erythema intertrigo] 05-22-2024 Episodic Other inflammatory condition of skin (1 source) Erythema intertrigo; Translations: [Intertrigo] Onset: 5 Episodic Other injuries and conditions due to external causes (2 sources) Injury of left knee; Translations: [Unspecified injury of left lower leg, initial encounter] 05-05-2024 Episodic Other injuries and conditions due to external causes (1 source) Other injury of unspecified body region, initial encounter; Translations: [Bruising] Onset: 5 Episodic Other liver diseases (20 sources) Fatty (change of) liver, not elsewhere classified; Translations: [Nonalcoholic fatty liver disease] Onset: 3 01-30-2023 Chronic Other liver diseases (5 sources) Elevated liver enzymes level; Translations: [Abnormal levels of other serum enzymes] Episodic Other lower respiratory disease (1 source) Cough; Translations: [Acute cough] 10-15-2023 Episodic Other lower respiratory disease (2 sources) Multiple nodules of lung; Translations: [Other nonspecific abnormal finding of lung field] 09-29-2024 Episodic Other lower respiratory disease (2 sources) Nodule of lung; Translations: [Solitary pulmonary nodule] 09-29-2024 Episodic Other lower respiratory disease (3 sources) Rib pain; Translations: [Pleurodynia] 11-07-2024 Episodic Other non-traumatic joint disorders (1 source) Pain in left shoulder; Translations: [Pain in joint, shoulder region] 02-08-2024 Episodic Other nutritional; endocrine; and metabolic disorders (20 sources) Obese class II; Translations: [Obesity, unspecified] Onset: 9 02-20-2019 Chronic Other nutritional; endocrine; and metabolic disorders (20 sources) Body mass index 40+ - severely obese; Translations: [Morbid (severe) obesity due to excess calories] Onset: 3 Chronic Other nutritional; endocrine; and metabolic disorders (5 sources) Psychosomatic factor in physical condition; Translations: [Morbid (severe) obesity due to excess calories] Chronic Other nutritional; endocrine; and metabolic disorders (3 sources) Severe obesity; Translations: [Morbid (severe) obesity due to excess calories] 02-05-2023 Chronic Other nutritional; endocrine; and metabolic disorders (20 sources) Morbid obesity; Translations: [Morbid (severe) obesity due to excess calories] Onset: 3 02-05-2023 Chronic Other nutritional; endocrine; and metabolic disorders (1 source) Obese class III; Translations: [Morbid (severe) obesity due to excess calories] 04-10-2023 Chronic Other nutritional; endocrine; and metabolic disorders (7 sources) Obese class I; Translations: [Obesity, unspecified] 11-23-2023 Chronic Other nutritional; endocrine; and metabolic disorders (3 sources) Excess panniculus of abdomen; Translations: [Localized adiposity] 01-22-2025 Chronic Other nutritional; endocrine; and metabolic disorders (1 source) Body mass index (BMI) 32.0-32.9, adult; Translations: [Class 1 obesity without serious comorbidity with body mass index (BMI) of 32.0 to 32.9 in adult, unspecified obesity type] Onset: 5 Chronic Other nutritional; endocrine; and metabolic disorders (1 source) Localized adiposity; Translations: [Symptomatic abdominal panniculus] Onset: 5 Chronic Other nutritional; endocrine; and metabolic disorders (1 source) Abnormal weight gain; Translations: [Weight gain] Onset: 3 Episodic Other screening for suspected conditions (not mental disorders or infectious disease) (20 sources) Patient encounter status; Translations: [Encounter for screening for malignant neoplasm of colon] Onset: 5 Episodic Other skin disorders (1 source) Lesion of face; Translations: [Disorder of the skin and subcutaneous tissue, unspecified] Episodic Other skin disorders (3 sources) Seborrheic keratosis; Translations: [Other seborrheic keratosis] Episodic Other skin disorders (2 sources) Eruption; Translations: [Rash and other nonspecific skin eruption] 05-22-2024 Episodic Other skin disorders (1 source) Lentiginosis; Translations: [Other melanin hyperpigmentation] 01-13-2025 Episodic Other skin disorders (1 source) Other melanin hyperpigmentation; Translations: [Lentigines] Onset: 5 Episodic Other upper respiratory disease (1 source) Allergic rhinitis due to pollen; Translations: [Allergic rhinitis due to pollen] 09-04-2023 Chronic Other upper respiratory infections (2 sources) Acute upper respiratory infection; Translations: [Acute upper respiratory infection, unspecified] 02-08-2024 Episodic Residual codes; unclassified (20 sources) Obstructive sleep apnea syndrome; Translations: [Obstructive sleep apnea (adult) (pediatric)] Onset: 1 08-31-2020 Chronic Residual codes; unclassified (1 source) Family history of polyp of colon; Translations: [Family history of colonic polyps] Episodic Residual codes; unclassified (1 source) History of clinical finding in subject; Translations: [Personal history of other specified conditions] 01-22-2025 Episodic Residual codes; unclassified (1 source) Personal history of other specified conditions; Translations: [History of weight loss] Onset: 5 Episodic Spondylosis; intervertebral disc disorders; other back problems (4 sources) Degeneration of lumbosacral intervertebral disc; Translations: [Other intervertebral disc degeneration, lumbosacral region] 12-13-2020 Chronic Spondylosis; intervertebral disc disorders; other back problems (13 sources) Backache; Translations: [Radiculopathy, site unspecified] 12-06-2020 Episodic Unclassified (7 sources) 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 Onset: 3 04-23-2023 Unclassified (1 source) NO SHOW 02-26-2024 Unclassified (1 source) Class 1 obesity without serious comorbidity with body mass index (BMI) of 32.0 to 32.9 in adult, unspecified obesity type; Translations: [Class 1 obesity without serious comorbidity with body mass index (BMI) of 32.0 to 32.9 in adult, unspecified obesity type] Onset: 5 Unclassified (1 source) Obesity, Class I, BMI 30.0-34.9 (see actual BMI); Translations: [Obesity, Class I, BMI 30.0-34.9 (see actual BMI)] Onset: 5 Past or Other Problems Problem Classification Problem Date Documented Da te Episodic/Chronic Biliary tract disease (20 sources) Polyp of gallbladder; Translations: [Cholesterolosis of gallbladder] Onset: 09-15-2022 Episodic Conditions associated with dizziness or vertigo (5 sources) Vertigo; Translations: [Dizziness and giddiness] Onset: 06-11-2024 06-11-2024 Episodic Other connective tissue disease (20 sources) History of lumbar fusion; Translations: [Arthrodesis status] Onset: 05-02-2023 07-27-2021 Episodic Other connective tissue disease (1 source) Separation of muscle (nontraumatic), other site; Translations: [Diastasis recti] Onset: 10-21-2024 Episodic Other injuries and conditions due to external causes (1 source) Unspecified injury of left lower leg, initial encounter; Translations: [Injury of left knee, initial encounter] Onset: 05-05-2024 Episodic Other lower respiratory disease (2 sources) Pleurodynia; Translations: [Rib pain] Onset: 11-07-2024 Episodic Other non-traumatic joint disorders (20 sources) Pain in left knee; Translations: [Pain in joint, lower leg] Onset: 05-26-2024 05-15-2024 Episodic Other skin disorders (1 source) Other seborrheic keratosis; Translations: [Seborrheic keratosis] Onset: 12-04-2024 Episodic Other skin disorders (1 source) Excessive and redundant skin and subcutaneous tissue; Translations: [Excess skin] Onset: 09-04-2024 Episodic Other skin disorders (1 source) Rash and other nonspecific skin eruption; Translations: [Rash and nonspecific skin eruption] Onset: 05-26-2024 Episodic Superficial injury; contusion (2 sources) Contusion of right front wall of thorax, initial encounter; Translations: [Contusion of chest wall] Onset: 11-07-2024 11-07-2024 Episodic Unclassified (1 source) Patient encounter status 11-08-2024 Unclassified (2 sources) History of clinical finding in subject 01-22-2025 Results Test Name Value Interpretation Reference Range Facility Glucose p fast Reyna 03-20-2025 Glucose post fast [Mass/Vol] 95 mg/dL Normal 74-99 [facility] Comment on above: Order Comment: Speci men Type: BLOOD SPECIMEN Ordering Facility: [facility] Address: [address] [place] [address] Result Comment: [place] [employer] Association guidelines state that a diabetes mellitus diagnosis is preliminarily made when the fasting plasma glucose meets or exceeds 126 mg/dL. In the absence of unequivocal hyperglycemia, results should be confirmed with repeat testing. Patients are at increased risk for diabetes mellitus (prediabetes) when the fasting glucose is 100 to 125 mg/dL. Performed By: #### 1 [id number] #### [facility] CLIA [id number] [address] [place] [address] [place] Insulin SerPl-aCncon 025 Insulin Qn 14.9 uU/mL Normal 2.6-24.9 [facility] Comment on above: Order Comment: Stormy blunt Type: BLOOD SPECIMEN Ordering Facility: [facility] Address: [address] [place] [address] Result Comment: Refe rence intervals established for fasting specimens. Performed By: #### 2 [id number] #### [facility] CLIA [id number] [address] [place] [address] [place] PLATELET AGGREGATIONon 03-20 Platelet aggregation ADP induced 10 umol/L (PRP) [Rel units/Vol] 80 % Max Normal 58-93 [facility] Comment on above: Order Comment: Stormy blunt Type: BLOOD SPECIMEN Ordering Facility: [facility] Address: [address] [place] [address] Performed By: #### L [id number], [id number] #### [facility] CLIA [id number] [address] [place] [address] [place] Platelet aggregation ADP induced 20 umol/mL (PRP) [Rel units/Vol] 80 % Max Normal 71-94 [facility] Comment on above: Order Comment: Stormy blunt Type: BLOOD SPECIMEN Ordering Facility: [facility] Address: [address] [place] [address] Performed By: #### L [id number], [id number] #### [facility] CLIA [id number] [address] [place] [address] [place] Platelet aggregation ADP induced ATP secretion 10 umol/L (Bld) [Rel units/Vol] 1.3 nM Normal 0.1-1.4 [facility] Comment on above: Order Comment: Speci men Type: BLOOD SPECIMEN Ordering Facility: [facility] Address: [address] [place] [address] Performed By: #### L [id number], [id number] #### [facility] CLIA [id number] [address] [place] [address] [place] Platelet aggregation ADP induced ATP secretion 5 umol/L (Bld) [Rel units/Vol] 0.6 nM Normal 0.1-1.3 [facility] Comment on above: Order Comment: Speci men Type: BLOOD SPECIMEN Ordering Facility: [facility] Address: [address] [place] [address] Performed By: #### L [id number], [id number] #### [facility] CLIA [id number] [address] [place] [address] [place] Platelet aggregation ADP induced High dose (PRP) [Rel units/Vol] 86 % Max Normal 65-93 [facility] Comment on above: Order Comment: Speci men Type: BLOOD SPECIMEN Ordering Facility: [facility] Address: [address] [place] [address] Performed By: #### L [id number], [id number] #### [facility] CLIA [id number] [address] [place] [address] [place] Platelet aggregation arachidonate induced 500 ug/mL (PRP) [Rel units/Vol] 93 % Max Normal 75-100 [facility] Comment on above: Order Comment: Speci men Type: BLOOD SPECIMEN Ordering Facility: [facility] Address: [address] [place] [address] Performed By: #### L [id number], [id number] #### [facility] CLIA [id number] [address] [place] [address] [place] Platelet aggregation arachidonate induced ATP secretion 500 umol/L (Bld) [Rel units/Vol] 1.4 nM Normal 0.4-2.0 [facility] Comment on above: Order Comment: Speci men Type: BLOOD SPECIMEN Ordering Facility: [facility] Address: [address] [place] [address] Performed By: #### L [id number], [id number] #### [facility] CLIA [id number] [address] [place] [address] [place] Platelet aggregation collagen induced ATP secretion 1 ug/mL (Bld) [Rel units/Vol] 1.1 nM Normal 0.4-1.7 [facility] Comment on above: Order Comment: Speci men Type: BLOOD SPECIMEN Ordering Facility: [facility] Address: [address] [place] [address] Performed By: #### L [id number], [id number] #### [facility] CLIA [id number] [address] [place] [address] [place] Platelet aggregation collagen induced Qn (Bld) 83 % Max Normal 74-99 [facility] Comment on above: Order Comment: Speci men Type: BLOOD SPECIMEN Ordering Facility: [facility] Address: [address] [place] [address] Performed By: #### L [id number], [id number] #### [facility] CLIA [id number] [address] [place] [address] [place] Platelet aggregation EPINEPHrine induced (PRP) [Rel units/Vol] 85 % Max Normal 70-97 [facility] Comment on above: Order Comment: Speci men Type: BLOOD SPECIMEN Ordering Facility: [facility] Address: [address] [place] [address] Performed By: #### L [id number], [id number] #### [facility] CLIA [id number] [address] [place] [address] [place] Platelet aggregation EPINEPHrine induced 100 umol/L (PRP) [Rel units/Vol] 98 % Max Normal 70-99 [facility] Comment on above: Order Comment: Speci men Type: BLOOD SPECIMEN Ordering Facility: [facility] Address: [address] [place] [address] Performed By: #### L [id number], [id number] #### [facility] CLIA [id number] [address] [place] [address] [place] Platelet aggregation ristocetin induced 1200 ug/mL (PRP) [Rel units/Vol] 90 % Max Normal 76-100 [facility] Comment on above: Order Comment: Speci men Type: BLOOD SPECIMEN Ordering Facility: [facility] Address: [address] [place] [address] Performed By: #### L [id number], [id number] #### [facility] CLIA [id number] [address] [place] [address] [place] Platelet aggregation ristocetin induced 1500 ug/mL (PRP) [Rel units/Vol] 88 % Max Normal 76-100 [facility] Comment on above: Order Comment: Speci men Type: BLOOD SPECIMEN Ordering Facility: [facility] Address: [address] [place] [address] Performed By: #### L [id number], [id number] #### [facility] CLIA [id number] [address] [place] [address] [place] Platelet aggregation ristocetin induced 600 ug/mL (PRP) [Rel units/Vol] 3 % Max Normal 0-9 [facility] Comment on above: Order Comment: Speci men Type: BLOOD SPECIMEN Ordering Facility: [facility] Address: [address] [place] [address] Performed By: #### L [id number], [id number] #### [facility] CLIA [id number] [address] [place] [address] [place] Platelet aggregation ristocetin induced 900 ug/mL (PRP) [Rel units/Vol] 76 % Max Normal 50-100 [facility] Comment on above: Order Comment: Speci men Type: BLOOD SPECIMEN Ordering Facility: [facility] Address: [address] [place] [address] Performed By: #### L [id number], [id number] #### [facility] CLIA [id number] [address] [place] [address] [place] Platelet aggregation thrombin induced ATP secretion 1 U/mL (Bld) [Rel units/Vol] 1.8 nM Normal >0.5 [facility] Comment on above: Order Comment: Stormy blunt Type: BLOOD SPECIMEN Ordering Facility: [facility] Address: [address] [place] [address] Performed By: #### L [id number], [id number] #### [facility] CLIA [id number] [address] [place] [address] [place] Platelet aggregation thrombin induced ATP secretion 5 U/mL (Bld) [Rel units/Vol] 0.5 nM Normal 0.2-1.4 [facility] Comment on above: Order Comment: Stormy blunt Type: BLOOD SPECIMEN Ordering Facility: [facility] Address: [address] [place] [address] Performed By: #### L [id number], [id number] #### [facility] CLIA [id number] [address] [place] [address] [place] PLATELET AGGREGATION INTERPo n 03-20-2025 Heparin Ab Platelet aggregation Ql (PPP) Reviewed by Gertrude Sosa M.D., Ph.D Normal [facility] Comment on above: Order Comment: Stormy blunt Type: BLOOD SPECIMEN Ordering Facility: [facility] Address: [address] [place] [address] Performed By: #### L [id number], [id number] #### [facility] CLIA [id number] [address] [place] [address] [place] Platelet aggregation (PPP) [Interp] Normal [facility] Comment on above: Order Comment: Stormy blunt Type: BLOOD SPECIMEN Ordering Facility: [facility] Address: [address] [place] [address] Result Comment: Campbell al - see comment below. A laboratory study of platelet aggregation and stimulated granule release was performed. The platelet count is normal. PLATELET AGGREGATION: There is normal aggregation to all tested agonists, including ADP (5 ???M), ADP (20 ???M), arachidonic acid (0.5 mg/ml), collagen (2 ???g/ml), epinephrine (10 ???M), epinephrine (100 ???M), and thromboxane A2 (3 ???M). There is normal stimulated dense granule release to all tested agonists, including ADP (5 ???M), ADP (20 ???M), arachidonic acid (0.5 mg/ml), collagen (2 ???g/ml), epinephrine (10 ???M), epinephrine (100 ???M), thromboxane A2 (3 ???M) and thrombin (1 U/mL). The ristocetin induced platelet aggregation shows a normal dose response to the following tested ristocetin doses: 1500 ???g/mL, 1200 ???g/mL, 900 ???g/mL, and 500 ???g/mL. SUMMARY: The platelet aggregometry study shows normal results. There is no evidence of a functional platelet abnormality. Performed By: #### L [id number], [id number] #### [facility] CLIA [id number] [address] [place] [address] 03-19-2025 [facility] Telephone (EMQ) -------- MARQUITA OMALLEY I ([id number]) 1975 F Date Time Provider Department 03/19/25 ABELARDO CLAYTON EM During your visit today, we recorded the following information about you: Yessenia Daniels 03/19/2025 10:18 AM Signed Initiated PA for semaglutide, weight loss, (WEGOVY) 0.25 mg/0.5 mL pen injector through [facility] CHART NOTES ATTACHED Questions Completed Waiting for determination [facility] Administrative Director Information I Endocrinology and Met[facility] [place] Haylie Springer 03/20/2025 8:26 AM Signed Dear Provider, Your patient's medication semaglutide, weight loss, (WEGOVY) 0.25 mg/0.5 mL pen injector was denied. Denial letters are sent directly to the patient and at times to the healthcare providers. If we receive a denial letter, it will be indexed for your review. If you want to appeal the decision. Please submit your request via staff message to the Janet Hamilton Auth Appeals Pool ([phone]). You can find templates listed below to support your appeal in [facility] (Epic drop down, select patient care, select send letter). If it is an urgent request, you can email the [facility] paniagua Team at [email or web address]. Please make sure the documents below are completed in order to process your request. If the appeal is denied, do you want to schedule a peer to peer Yes/No. We will schedule peer to peer automatically if yes. Thank You, Janet Paniagua Appeals Team Janet OATES Appeal letter Janet OATES Letter of Medical Necessity Janet AOTES Clindoc CARLOS MANUEL JON Prior Aquatic Ecologist III Medical Special[facility] Carlton Dai RN 03/20/2025 12:03 PM Signed The PA questions were answered incorrectly. Patient's BMI is >27, not less (BMI 32.36) Carlton Dai RN 03/20/2025 12:12 PM Signed Wegovy has been APPROVED Scan on 03/20/2025 11:38 AM by Provider, External, CHRISTINC: Daiana APPROVAL Allergies As of Date: 03/19/2025 Noted Allergy Reaction BENADRYL (DIPHENHYDRAMINE) 02/13/2022 5 - Intolerance 14 - Other: See Comments Comments: Jittery, shaking, skin feels like its crawling, hyper LYRICA (PREGABALIN) 08/03/2010 14 - Other: See Comments Comments: Elevates blood pressure SEASONAL ALLERGIES 08/03/2010 14 - Other: See Comments Comments: Mostly Pollen-stuffy nose,headache SULFA (SULFONAMIDE ANTIBIOTICS) 08/03/2010 4 - Hives Date Reviewed: 03/11/2025 Reviewed by: Lorraine Mcdonough Ma, MA - Fully Assessed Reason for Visit: Insurance Authorization [[id number]] Cmt: Denial - semaglutide, weight loss, (WEGOVY) 0.25 mg/0.5 mL pen injector Prescriptions as of 03/20/2025 - semaglutide, weight loss, (WEGOVY) 0.25 mg/0.5 mL pen injector Inject 0.25 mg subcutaneously one time a week for 28 days. - semaglutide, weight loss, (WEGOVY) 0.5 mg/0.5 mL pen injector Inject 0.5 mg subcutaneously one time a week for 28 days. Patient should start on April 15, 2025. - semaglutide, weight loss, (WEGOVY) 1 mg/0.5 mL pen injector Inject 1 mg subcutaneously one time a week for 28 days. Patient should start on May 13, 2025. - semaglutide, weight loss, (WEGOVY) 1.7 mg/0.75 mL pen injector Inject 1.7 mg subcutaneously one time a week for 28 days. Patient should start on June 10, 2025. - escitalopram oxalate (LEXAPRO) 20 mg tablet Take 1 tablet by mouth once daily. - budesonide-formoterol (SYMBICORT) 160-4.5 mcg/actuation inhaler Inhale 2 puffs as instructed two times a day. - albuterol HFA (PROVENTIL HFA, VENTOLIN HFA) 90 mcg/actuation inhaler Inhale 2 puffs as instructed four times a day as needed. - MAGNESIUM ORAL Take by mouth. - ASHWAGANDHA EXTRACT ORAL Take by mouth once daily. - dkvylcdr-ugqo-kqbwn-oreg -capry 100 mg-150 mg- 50 mg-150 mg cap Take by mouth once daily. - Zinc Acetate, Oral, 50 mg (zinc) cap Take by mouth once daily. - vitamin b complex capsule Take 1 capsule by mouth once daily. - gabapentin (NEURONTIN) 600 mg tablet Take 1 tablet by mouth three times a day for 180 days. - traZODone (DESYREL) 150 mg tablet Take 1 tablet by mouth daily at bedtime. - famotidine (PEPCID) 20 mg tablet Take 1 tablet by mouth two times a day as needed. Problem List As Of Date 03/19/2025 Noted Resolved Migraine without aura, intractable, without sta*02/20/2019 Obesity, Class II, BMI 35-39.9 [E66.812] 02/20/2019 Anxiety with depression [F41.8] 02/20/2019 Mild intermittent asthma without complication [*01/12/2020 ALISHA (obstructive sleep apnea) [G47.33] 08/31/2020 Obstructive sleep apnea (adult) (pediatric) [G4*04/11/2021 Vitamin D deficiency [E55.9] 02/05/2023 Diagnosed: 02/05/2023 NAFLD (nonalcoholic fatty liver disease) [K76.0]02/05/2023 Morbid obesity (HCC) [E66.01] 02/05/2023 History of lumbar fusion [Z98.1] 05/02/2023 Diagnosed: 05/02/2023 Polyp of gallbladder [K82.4] 09/15/2022 Diagnosed: 05/02 (more content not included)... Normal [facility] CNOVSPon 03-11-2025 CNOVSP Visit (SP) Office (ADY) -------- MARQUITA OMALLEY I ([id number]) 1975 F Date Time Provider Department 03/11/25 9:00 AM MACK COLEY During your visit today, we recorded the following information about you: Temperature Pulse Blood pressure Weight 97.9 degrees 65/minute 144/87 86.9 kg Height 1.638 m Mack Coley MD 03/11/2025 9:34 AM Signed HISTORY OF PRESENT ILLNESS: Marquita Omalley is a 49 year old female referred for bruising.notices bruises cannot remember trauma usually. Had hysterectomy 2018 [facility] had post op bleeding after packing was removed (was on SSRI at that time). Multiple other surgeries no excessive bleeding was noted. Had 2 wisdom teeth extracted no unusual bleeding. Labs reviewed, platelet function study in 2020, likely was on SSRI at that time. No bruises currently Wonders about planned surgery for excess skin removal. CLINICAL IMPRESSION: Bruising, sounds pretty normal, abnormal platelet aggregation study in past but was likely due to SSRI effect. Doubt she has a coagulopathy RECOMMENDATION/PLAN: 1. She will hold SSRI (she can stop cold turkey, she has done that in the past) 2. Will check platelet aggregation study in 7-10 days 3. We can follow up via MyChart, if this is normal I see no hematologic contraindication for skin removal surgery Written and verbal health teaching given to patient, patient verbalizes understanding and agrees with treatment plan. PAST MEDICAL HISTORY Diagnosis Date Anxiety Arthritis Chest pain Depression Ear infection Migraines Obesity, Class II, BMI 35-39.9 02/20/2019 PTSD (post-traumatic stress disorder) Sciatica UTI (lower urinary tract infection) PAST SURGICAL HISTORY Procedure Laterality Date ABDOMINAL SURGERY HX APPENDECTOMY 1982 APPENDECTOMY HX BACK SURGERY HX BREAST SURGERY HX COLONOSCOPY SCREENING 02/13/2022 10 year next colonoscopy 2031 COLPOPEXY VAGINAL INTRAPERITONEAL APPROACH 01/23/2019 uterosacral ligament fixation FRACTURE SURGERY LIG/TRNSXJ FLP TUBE ABDL/VAG APPR UNI/BI 06/2007 MAMMO MAMMOGRAM 07/20/2010 OTHER lumbar spinal fusion L5-S1 PAST SURGICAL HISTORY OF 09/2008 Micro Disectomy L5S1 PAST SURGICAL HISTORY OF Left 2013 Left wrist surgery POST COLPORRHAPHY RECTOCELE W/WO PERINEORRHAPHY 01/23/2019 posterior repair REDUCTION OF LARGE BREAST 09/2006 Bilateral SKIN BIOPSY HX SLING OPER STRES INCONTINENCE 01/23/2019 TVT exact TONSILLECTOMY HX VAGINAL HYSTERECTOMY VAGINAL HYSTERECTOMY UTERUS 250 GM/< 01/23/2019 tubes and ovaries remain FAMILY HISTORY Problem Relation Age of Onset Allergies Mother Headache Mother Obesity Mother Hypertension Father Heart Father Obesity Sister Allergies Sister Headache Sister Diabetes Maternal Grandmother Emphysema Maternal Grandmother Breast Cancer Maternal Grandmother Emphysema Maternal Grandfather Alcohol/Drug Paternal Grandfather Headache Daughter other (Pneumonia) Daughter Headache Daughter Headache Son other (RSV) Son Psychiatry Maternal Uncle Suicide Lung Cancer Maternal Uncle SOCIAL HISTORY[1] ALLERGIES: ALLERGIES Allergen Reactions Benadryl [Diphenhyd* Intolerance, Other: See Comments Jittery, shaking, skin feels like its crawling, hyper Lyrica [Pregabalin] Other: See Comments Elevates blood pressure Seasonal Allergies Other: See Comments Mostly Pollen-stuffy nose,headache Sulfa (Sulfonamide * Hives CURRENT OUTPATIENT MEDICATIONS: escitalopram oxalate (LEXAPRO) 20 mg tablet Take 1 tablet by mouth once daily. budesonide-formoterol (SYMBICORT) 160-4.5 mcg/actuation inhaler Inhale 2 puffs as instructed two times a day. albuterol HFA (PROVENTIL HFA, VENTOLIN HFA) 90 mcg/actuation inhaler Inhale 2 puffs as instructed four times a day as needed. MAGNESIUM ORAL Take by mouth. (Patient taking differently: Take 1 tablet by mouth two times a week.) ASHWAGANDHA EXTRACT ORAL Take by mouth once daily. xmrujfux-dibf-ssvbd-oreg -capry 100 mg-150 mg- 50 mg-150 mg cap Take by mouth once daily. (Patient taking differently: Take 1 capsule by mouth two times a week.) Zinc Acetate, Oral, 50 mg (zinc) cap Take by mouth once daily. (Patient taking differently: Take 1 capsule by mouth two times a week.) vitamin b complex capsule Take 1 capsule by mouth once daily. (Patient taking differently: Take 1 capsule by mouth two times a week.) traZODone (DESYREL) 150 mg tablet Take 1 tablet by mouth daily at bedtime. famotidine (PEPCID) 20 mg tablet Take 1 tablet by mouth two times a day as needed. gabapentin (NEURONTIN) 600 mg tablet Take 1 tablet by mouth three times a day for 180 days. (Patient not taking: Reported on 03/11/2025) REVIEW OF SYSTEMS: GENERAL: No fever, night sweats, weight loss or malaise. All other reviewed and negative other than HPI. PHYSICAL EXAMINATION: VITAL (more content not included)... Normal [facility] CNOVon 03-04-2025 CNOV Office Visit (BRIANAPWS ) -------- MARQUITA OMALLEY I ([id number]) 1975 F Date Time Provider Department 03/04/25 8:00 AM BRIGETTE MARTIN During your visit today, we recorded the following information about you: Pulse Respiration Blood pressure 71/minute 16/minute 148/90 Brigette Martin APRN.RENETTA 03/04/2025 8:06 AM Signed Increase the lexapro to 20 mg daily. Recheck in 1 month. Brigette Martin APRN.RENTETA 03/04/2025 8:38 AM Signed This is a 49 year old female who presents today with: The patient is a 49-year-old female presenting for evaluation and management of refractory headache. HISTORY OF PRESENT ILLNESS: Layne Omalley is a 49-year-old female with a history of anxiety and insomnia, presenting for follow-up. Anxiety: - Currently taking Lexapro 10 mg daily; reports improvement but still experiences bad days. - Requests increase in dosage to 20 mg. - Has a prescription for Ativan but has not used it, keeps it as a safety net. - no SI/HI. Insomnia: - Taking Trazodone 150 mg at bedtime; reports variable effectiveness. - Sometimes takes a third to half of a pill with good results. - Recent poor sleep attributed to allergy sinus junk. Headache: - Took Tylenol this morning. - Unable to take ibuprofen. Chronic headaches/migraines that is worse during the fall symptoms. Toradol is usually helpful. Lifestyle: - Works from home for [employer]. 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 - Denies receiving flu or pneumonia vaccines; believes she has completed the Hepatitis B vaccine series. PAST MEDICAL HISTORY: PAST MEDICAL HISTORY Diagnosis Date Anxiety Arthritis Chest pain Depression Ear infection Migraines Obesity, Class II, BMI 35-39.9 02/20/2019 PTSD (post-traumatic stress disorder) Sciatica UTI (lower urinary tract infection) PAST SURGICAL HISTORY Procedure Laterality Date ABDOMINAL SURGERY HX APPENDECTOMY 1982 APPENDECTOMY HX BACK SURGERY HX BREAST SURGERY HX COLONOSCOPY SCREENING 02/13/2022 10 year next colonoscopy 2031 COLPOPEXY VAGINAL INTRAPERITONEAL APPROACH 01/23/2019 uterosacral ligament fixation FRACTURE SURGERY LIG/TRNSXJ FLP TUBE ABDL/VAG APPR UNI/BI 06/2007 MAMMO MAMMOGRAM 07/20/2010 OTHER lumbar spinal fusion L5-S1 PAST SURGICAL HISTORY OF 09/2008 Micro Disectomy L5S1 PAST SURGICAL HISTORY OF Left 2013 Left wrist surgery POST COLPORRHAPHY RECTOCELE W/WO PERINEORRHAPHY 01/23/2019 posterior repair REDUCTION OF LARGE BREAST 09/2006 Bilateral SKIN BIOPSY HX SLING OPER STRES INCONTINENCE 01/23/2019 TVT exact TONSILLECTOMY HX VAGINAL HYSTERECTOMY VAGINAL HYSTERECTOMY UTERUS 250 GM/< 01/23/2019 tubes and ovaries remain ALLERGIES Benadryl [Diphenhydramine], Lyrica [Pregabalin], Seasonal Allergies, and Sulfa (Sulfonamide Antibiotics) MEDICATIONS Current Outpatient Medications Medication Sig escitalopram oxalate (LEXAPRO) 20 mg tablet Take 1 tablet by mouth once daily. budesonide-formoterol (SYMBICORT) 160-4.5 mcg/actuation inhaler Inhale 2 puffs as instructed two times a day. albuterol HFA (PROVENTIL HFA, VENTOLIN HFA) 90 mcg/actuation inhaler Inhale 2 puffs as instructed four times a day as needed. MAGNESIUM ORAL Take by mouth. ASHWAGANDHA EXTRACT ORAL Take by mouth once daily. uregxqri-vanj-kkkfn-oreg -capry 100 mg-150 mg- 50 mg-150 mg cap Take by mouth once daily. Zinc Acetate, Oral, 50 mg (zinc) cap Take by mouth once daily. vitamin b complex capsule Take 1 capsule by mouth once daily. gabapentin (NEURONTIN) 600 mg tablet Take 1 tablet by mouth three times a day for 180 days. traZODone (DESYREL) 150 mg tablet Take 1 tablet by mouth daily at bedtime. famotidine (PEPCID) 20 mg tablet Take 1 tablet by mouth two times a day as needed. No current facility-administered medications for this visit. FAMILY HISTORY Problem Relation Age of Onset Allergies Mother Headache Mother Obesity Mother Hypertension Father Heart Father Obesity Sister Allergies Sister Headache Sister Diabetes Maternal Grandmother Emphysema Maternal Grandmother Breast Cancer Maternal Grandmother Emphysema Maternal Grandfather Alcohol/Drug Paternal Grandfather Headache Daughter other (Pneumonia) Daughter Headache Daughter Headache Son other (RSV) Son Psychiatry Maternal Uncle Suicide SOCIAL HISTORY[1] REVIEW OF SYSTEMS Constitutional: (+) insomnia Head: (+) headache Ears/Nose/Mouth/Throat: (+) sinus congestion Psychiatric: (+) tearfulness, (-) suicidal ideation EXAM: BP 148/90 Pulse 71 Resp 16 LMP 01/03/2019 (Exact Date) SpO2 98% PHYSICAL EXAM: General Appearance: Well appearing, alert, in no acute distress, well-hydrated, well nourished.. Skin: Skin color, texture, turgor normal, no suspicious rashes or lesions. Head: Normocephalic, no mari (more content not included)... Normal [facility] CNOVon 02-04-2025 [facility] -------- MARQUITA OMALLEY I ([id number]) 1975 F Date Time Provider Department 02/04/25 4:00 PM [facility] During your visit today, we recorded the following information about you: Pulse Respiration Blood pressure 63/minute 16/minute 132/84 Brigette Martin APRN.CAREER SERVICES OFFICER 02/04/2025 4:36 PM Signed Start the lexapro. 1/2 pill daily X 1 week; then increase to a whole pill daily. 2. Recheck in 1 month. Call sooner if needed. Brigette Martin APRN.CAREER SERVICES OFFICER 02/04/2025 4:55 PM Signed This is a 49 year old female who presents today with: The patient is a 49-year-old female with depression and anxiety, presenting for evaluation of a 7-day persistent migraine headache refractory to OTC treatment and for medication management. HISTORY OF PRESENT ILLNESS: Migraine: - Layne Omalley has had a persistent migraine for 5-7 days, fluctuating in intensity but never fully resolving. - Currently experiencing severe pain. - Layne has tried Excedrin, Tylenol, sinus and allergy medications, nasal spray, and ibuprofen with no relief. - Prefers Toradol for pain management. - Denies wanting to go to the ER due to aversion to medications like Dilaudid or morphine. She reports this is typical migraine without change in character. Anxiety and Depression: - Worsening anxiety and depression, attributing some migraine symptoms to these conditions. - Experiencing significant stress from work, performing duties of three people, working 12-hour days, six days a week without additional pay. - Recent breakup with boyfriend, upcoming move in six months, son moved out, daughter started college, and youngest child is a senior. - Layne reports frequent crying and feeling overwhelmed by changes. - Seeking short-term medication to stabilize mood. - History of taking Wellbutrin, Abilify, Ativan, and Lexapro; has been off medication for over a year. - Reports good appetite but sometimes forgets to eat, leading to nausea. - Sleep disturbances, only sleeping about four hours even with 150 mg of trazodone. - Expresses feelings of hopelessness and passive suicidal ideation, stating, I just want to go to sleep and not wake up. - Denies any intention to act on these thoughts, citing the impact of her uncle's suicide on her family. - Has a supportive friend who is aware of her situation and provides emotional support. - Has an appointment with a therapist in April but is seeking more immediate help. She has reached out to counseling center, but has not been called back. PAST MEDICAL HISTORY: PAST MEDICAL HISTORY Diagnosis Date Anxiety Arthritis Chest pain Depression Ear infection Migraines Obesity, Class II, BMI 35-39.9 02/20/2019 PTSD (post-traumatic stress disorder) Sciatica UTI (lower urinary tract infection) PAST SURGICAL HISTORY Procedure Laterality Date ABDOMINAL SURGERY HX APPENDECTOMY 1982 APPENDECTOMY HX BACK SURGERY HX BREAST SURGERY HX COLONOSCOPY SCREENING 02/13/2022 10 year next colonoscopy 2031 COLPOPEXY VAGINAL INTRAPERITONEAL APPROACH 01/23/2019 uterosacral ligament fixation FRACTURE SURGERY LIG/TRNSXJ FLP TUBE ABDL/VAG APPR UNI/BI 06/2007 MAMMO MAMMOGRAM 07/20/2010 OTHER lumbar spinal fusion L5-S1 PAST SURGICAL HISTORY OF 09/2008 Micro Disectomy L5S1 PAST SURGICAL HISTORY OF Left 2013 Left wrist surgery POST COLPORRHAPHY RECTOCELE W/WO PERINEORRHAPHY 01/23/2019 posterior repair REDUCTION OF LARGE BREAST 09/2006 Bilateral SKIN BIOPSY HX SLING OPER STRES INCONTINENCE 01/23/2019 TVT exact TONSILLECTOMY HX VAGINAL HYSTERECTOMY VAGINAL HYSTERECTOMY UTERUS 250 GM/< 01/23/2019 tubes and ovaries remain ALLERGIES Benadryl [Diphenhydramine], Lyrica [Pregabalin], Seasonal Allergies, and Sulfa (Sulfonamide Antibiotics) MEDICATIONS Current Outpatient Medications Medication Sig escitalopram oxalate (LEXAPRO) 10 mg tablet 1/2 pill daily X 1 week; then increase to a whole pill daily. LORazepam (ATIVAN) 0.5 mg Take 1 tablet by mouth two times a day as needed for up to 7 days. budesonide-formoterol (SYMBICORT) 160-4.5 mcg/actuation inhaler Inhale 2 puffs as instructed two times a day. albuterol HFA (PROVENTIL HFA, VENTOLIN HFA) 90 mcg/actuation inhaler Inhale 2 puffs as instructed four times a day as needed. MAGNESIUM ORAL Take by mouth. ASHWAGANDHA EXTRACT ORAL Take by mouth once daily. rwhthuco-vpdh-jfjvr-oreg -capry 100 mg-150 mg- 50 mg-150 mg cap Take by mouth once daily. Zinc Acetate, Oral, 50 mg (zinc) cap Take by mouth once daily. vitamin b complex capsule Take 1 capsule by mouth once daily. gabapentin (NEURONTIN) 600 mg tablet Take 1 tablet by mouth three times a day for 180 days. traZODone (DESYREL) 150 mg tablet Take 1 tablet by mouth daily at bedtime. famotidine (PEPCID) 20 mg tablet Take 1 tablet by mouth two times a day as (more content not included)... Normal [facility] CNOVon 01-22-2025 CNOV Office Visit ([facility] ) -------- MARQUITA OMALLEY I ([id number]) 1975 F Date Time Provider Department 01/22/25 2:15 PM LIZA AVILA During your visit today, we recorded the following information about you: Temperature Pulse Blood pressure Weight 98 degrees 75/minute 117/76 83.8 kg Height 1.638 m Jazlyn Rodriguez, RN 01/22/2025 4:33 PM Signed Plastic Surgery Note CC: Consultation for Panniculectomy/Hernia Repair Referred by Dr. Henderson HPI: Marquita is a 49 year old female presenting today for a consultation for panniculectomy. Patient has a ventral hernia. She would like to have a panniculectomy at the same time as open ventral hernia repair. Seen by Dr. Henderson 12/22/24 Bothered by fungal skin infections Patient is s/p Gastric sleeve: laparoscopic 2022. Date of bariatric surgery (more than 18 months): Yes - laparoscopic sleeve gastrectomy Highest weight: 275 lbs Current weight: 184 lbs Weight loss of 100 lbs or more: No Use of pharmacotherapy for weight loss/management (Ozempic, Wegovy, Mounjaro, Phetermine): No Patients weight has been stable for 6 months. The patient does complain of recurrent rashes, intertrigo with dermatitis occuring on the opposed surface of the skin that has not responded to conventional treatment for a period of 3 months. She reports that this makes her itchy. Treatments tried: cortisone 10 The patient does not have a history of infection. Panniculus causes interference with activities of daily living: Yes, things like she is not able to sit close to her computer and this causes her malpositioning and discomfort. Bathing: No Dressing: No Work: Yes Trouble with clothes fitting properly: Yes - unable to wear many kinds of clothing History of Abdominal Hernia: Umbilical hernia History of Abdominal Surgery: - Open appendectomy - Lap tubal ligation 2007 - Spinal fusion (which required an abdominal approach ~2018) - Lap sleeve gastrectomy 2022 OB HISTORY: Para: 3 Plan for future pregnancies: No Recurrent Miscarriages (>3): No History of Hypertrophic Scars/Keloids: Reports she has a tendency to keloid History of Diabetes: No History of Autoimmune Disorder: No Hormonal Control or Hormone Replacement Therapy: No History of Bleeding/Clotting Disorders: Reports she bleeds very easily and was positive for 1 of the 3 markers of Von Willebrands Disease. History of DVT/PE: No Anticoagulants/Antiplate lets: No NICOTINE USE: Former, quit prior to 2005 Patient has known asthma and uses albuterol rescue inhaler for management. Has taken prednisone in the past for flares. She follows up with GI for hx of liver disease Lives: [place], [place] CT ABD/PEL W IVCON (09/23/2024 10:24 AM) IMPRESSION: Diastases of the rectus abdominis musculature. Small umbilical hernia, containing omental fat. No acute abdominal or pelvic process is identified. Subcentimeter pulmonary nodules, measuring up to 5 mm in size. PAST MEDICAL HISTORY Diagnosis Date Anxiety Arthritis Chest pain Depression Ear infection Migraines Obesity, Class II, BMI 35-39.9 02/20/2019 PTSD (post-traumatic stress disorder) Sciatica UTI (lower urinary tract infection) PAST SURGICAL HISTORY Procedure Laterality Date ABDOMINAL SURGERY HX APPENDECTOMY 1982 APPENDECTOMY HX BACK SURGERY HX BREAST SURGERY HX COLONOSCOPY SCREENING 02/13/2022 10 year next colonoscopy 2031 COLPOPEXY VAGINAL INTRAPERITONEAL APPROACH 01/23/2019 uterosacral ligament fixation FRACTURE SURGERY LIG/TRNSXJ FLP TUBE ABDL/VAG APPR UNI/BI 06/2007 MAMMO MAMMOGRAM 07/20/2010 OTHER lumbar spinal fusion L5-S1 PAST SURGICAL HISTORY OF 09/2008 Micro Disectomy L5S1 PAST SURGICAL HISTORY OF Left 2013 Left wrist surgery POST COLPORRHAPHY RECTOCELE W/WO PERINEORRHAPHY 01/23/2019 posterior repair REDUCTION OF LARGE BREAST 09/2006 Bilateral SKIN BIOPSY HX SLING OPER STRES INCONTINENCE 01/23/2019 TVT exact TONSILLECTOMY HX VAGINAL HYSTERECTOMY VAGINAL HYSTERECTOMY UTERUS 250 GM/< 01/23/2019 tubes and ovaries remain Current Outpatient Medications Medication Sig Dispense Refill budesonide-formoterol (SYMBICORT) 160-4.5 mcg/actuation inhaler Inhale 2 puffs as instructed two times a day. 3 each 3 albuterol HFA (PROVENTIL HFA, VENTOLIN HFA) 90 mcg/actuation inhaler Inhale 2 puffs as instructed four times a day as needed. 18 g 5 predniSONE (DELTASONE) 20 mg tablet Take 2 tablets by mouth once daily. (Patient not taking: Reported on 01/01/2025) 10 tablet 0 MAGNESIUM ORAL Take by mouth. ASHWAGANDHA EXTRACT ORAL Take by mouth once daily. qclclzvl-zial-slsjo-oreg -capry 100 mg-150 mg- 50 mg-150 mg cap Take by mouth once daily. Zinc Acetate, Oral, 50 mg (zinc) cap Take by mouth once daily. vitamin b complex capsule Take 1 capsule by mouth once daily. gabapentin (NEURONTIN) 600 mg (more content not included)... Normal [facility] CNOVon 01-13-2025 CNOV Office Visit (DERMST ) -------- LYSSAMARQUITA I ([id number]) 1975 F Date Time Provider Department 01/13/25 2:30 PM CARLY COLÓN During your visit today, we recorded the following information about you: Phong Sheffield LPN 01/13/2025 2:52 PM Addendum GENERAL SUN SAFETY Thank you for allowing me to examine you for signs of skin cancer today. We had an opportunity to discuss my findings and any treatments I recommended. I believe that there are several steps that a person can do to help prevent skin cancers and to detect them at an early, treatable stage: 1. I highly recommend that once a month you perform your own complete skin check looking for changing or unusual spots. Use a wall-mounted mirror and a hand mirror to assist in seeing body areas that are difficult to see otherwise. If you have a family member that can assist, this is often helpful. Additional information can be obtained at: www.skincancer.org/skin- cancer-information/early -detection 2. In many cases, skin cancer can be prevented. The best way to protect yourself is to avoid too much sun and sunburns. Health care providers believe that ultraviolet rays (UV rays) from the sun damage the skin and over time lead to skin cancer. Here are ways to protect yourself: -Don't spend long periods of time in direct sunlight. -Wear hats with brims to protect your face and ears. -Wear long-sleeved shirts and pants to protect your arms and legs. -Use broad spectrum sunscreens with a SPF (skin protection factor) of 30 or higher that protect against burning and tanning rays. Apply the lotion 30 minutes before you go outside. (Broad-spectrum sunscreens protect against UV-B and UV-A rays.) -Wear sunglasses to protect your eyes. -Use a lip balm with sunscreen. -Avoid the sun between 10am and 4pm. -Show any changing mole to your health care provider. Recommend Vitamin C and sunscreen for dark spots ZambCarly srivastava APRN.CAREER SERVICES OFFICER 01/13/2025 3:45 PM Signed Department of Dermatology Carly Colón APRN.CNP Last visit in Dermatology: 12/04/2024 Objective/Assessment/Alyssia n Skin Exam 1. MULTIPLE BENIGN NEVI Generalized Multiple scattered pink papules with flaccid epidermis and small, symmetric huitron to brown macules with uniform pigmentation over the trunk and extremities. Observational course. Monitor for growth and changes. 2. SEBORRHEIC KERATOSIS Generalized Stuck-on verrucous, variably pigmented papules and plaques. Scattered to the trunk, bilateral upper extremities, bilateral lower extremities. Observational course. Monitor for growth and changes. 3. LENTIGINES Generalized Densely scattered light huitron macules and small patches on all sun exposed areas. Observational course. Monitor for growth and changes. 4. SANCHEZ ANGIOMA Generalized Sanchez-red papules scattered to the trunk, bilateral upper extremities, bilateral lower extremities. Observational course. Monitor for growth and changes. 5. SKIN CANCER SCREENING Generalized The patient's skin was examined for evidence of cutaneous malignancy. The nature of sun-induced photo-aging and skin cancers is discussed. Sun avoidance, protective clothing, and the use of 30-SPF sunscreens is advised. Patient is instructed to perform regular self exams. Patient instructed to observe for changing, symptomatic, or new skin lesions and encouraged to contact our office for evaluation. Follow-up as noted below or as needed. Chief Complaint: Patient presents with: Full Body Skin Check Subjective and Objective HPI: Marquita Omalley is a 49 year old female who presents for: Skin check. Desires: Total body skin check in female excluding genitals (patient has periodic examination by PCP and declines this exam) History of skin cancer?: No Areas of particular concern?: No Past medical history is reviewed. Medication list is reviewed. Physical Exam included: Scalp, face, ears, neck, chest, back, abdomen, bilateral upper extremities, bilateral lower extremities, buttocks, hands, feet, nails and hair Intake information obtained by Mandy You RN The documentation for this note was completed by Phong Sheffield LPN acting as scribe for Carly Colón APRN.CNP. January 13, 2025 2:49 PM I agree with the Chief Complaint, ROS, and Past Histories independently gathered by the clinical decision support manager and the remaining scribed note accurately describes my personal service to the patient. Carly Colón APRN.CNP Allergies As of Date: 01/13/2025 Noted Allergy Reaction BENADRYL (DIPHENHYDRAMINE) 02/13/2022 5 - Intolerance 14 - Other: See Comments Comments: Jittery, shaking, skin feels like its crawling, hyper LYRICA (PREGABALIN) 08/03/2010 14 - Other: See Comments Comments: Elevates blood pressure SEASONAL ALLERGIES 08/03/2010 14 - Other: S (more content not included)... Normal [facility] CNOVon 01-01-2025 CNOV Office Visit (ORMDNA ) -------- MARQUITA OMALLEY I ([id number]) 1975 F Date Time Provider Department 01/01/25 11:45 AM LISA RODRÍGUEZ During your visit today, we recorded the following information about you: Lisa Rodríguez PA-C 01/01/2025 12:13 PM Signed Lisa Rodríguez PA-C Department of Orthopaedics Orthopa[facility] [address] [address] Dept: [phone] January 01, 2025 CHIEF COMPLAINT: New, Knee Pain, and Injections of the Left Knee. ASSESSMENT: M17.0 Primary osteoarthritis of both knees (primary encounter diagnosis) SUMMARY/PLAN: Patient presents requesting a repeat left knee corticosteroid injection, her last injection was September 01, 2024, she found the injection to be very beneficial for almost 3 months, pain has returned and is a 5 out of 10 sharp aching, pain is worse when she is climbing stairs but not descending stairs. Moving her daughter to college this weekend. Will proceed with a left knee corticosteroid injection, advised that she can repeat the injection every 91 days as needed. Large Joint Arthro/Inj: L knee joint 01/01/2025 12:13 PM The procedure site was prepped in the usual sterile fashion. Site: L knee joint Medications: 6 mg betamethasone acetate-betamethasone sodium phosphate 6 mg/mL Anesthetics: 5 mL lidocaine (PF) 10 mg/mL (1 %) Outcome: Tolerated well, no immediate complications Post-injection instructions were reviewed with the patient and the patient voiced understanding of these instructions. Informed Consent Consent Obtained: Verbal [place] Protocol A moment to CARE was completed. SIGN IN Sign in communication not applicable due to emergent procedure. Personnel directly involved with the procedure wore the appropriate PPE. Special Equipment: N/A Patient/Surrogate Stated/Verified: Patient name, Date of , Relevant allergies and Intended procedure TIME OUT Relevant labs, photos, and/or imaging studies have been reviewed. Consent documented and matches the intended procedure. Correct side/site marked and visible. Medications required for procedure verified. No fire risk assessment and interventions applicable. No implant(s) inserted. SIGN OUT No specimen collected. All instruments, equipment, possible retained foreign bodies accounted for. No post-procedure POC communication to the patient's multidisciplinary team (including the bedside nurse for hospitalized patients) applicable. Ms. Marquita Omalley was advised as to contrast therapies and/or to take analgesics/anti-inflamma tories as needed and all contraindications were reviewed. Supporting Information Below: Medications: Current Outpatient Medications Medication Sig budesonide-formoterol (SYMBICORT) 160-4.5 mcg/actuation inhaler Inhale 2 puffs as instructed two times a day. albuterol HFA (PROVENTIL HFA, VENTOLIN HFA) 90 mcg/actuation inhaler Inhale 2 puffs as instructed four times a day as needed. MAGNESIUM ORAL Take by mouth. ASHWAGANDHA EXTRACT ORAL Take by mouth once daily. umgedbqy-owau-kpmxw-oreg -capry 100 mg-150 mg- 50 mg-150 mg cap Take by mouth once daily. Zinc Acetate, Oral, 50 mg (zinc) cap Take by mouth once daily. vitamin b complex capsule Take 1 capsule by mouth once daily. gabapentin (NEURONTIN) 600 mg tablet Take 1 tablet by mouth three times a day for 180 days. traZODone (DESYREL) 150 mg tablet Take 1 tablet by mouth daily at bedtime. famotidine (PEPCID) 20 mg tablet Take 1 tablet by mouth two times a day as needed. predniSONE (DELTASONE) 20 mg tablet Take 2 tablets by mouth once daily. (Patient not taking: Reported on 01/01/2025) No current facility-administered medications for this visit. Allergies: Benadryl [Diphenhydramine], Lyrica [Pregabalin], Seasonal Allergies, and Sulfa (Sulfonamide Antibiotics) This note was partially generated using [employer] voice recognition system, and there may be some incorrect words, spellings, and punctuation that were not noted in checking the note before saving. Lisa Rodríguez PA-C Allergies As of Date: 01/01/2025 Noted Allergy Reaction BENADRYL (DIPHENHYDRAMINE) 02/13/2022 5 - Intolerance 14 - Other: See Comments Comments: Jittery, shaking, skin feels like its crawling, hyper LYRICA (PREGABALIN) 08/03/2010 14 - Other: See Comments Comments: Elevates blood pressure SEASONAL ALLERGIES 08/03/2010 14 - Other: See Comments Comments: Mostly Pollen-stuffy nose,headache SULFA (SULFONAMIDE ANTIBIOTICS) 08/03/2010 4 - Hives Date Reviewed: 01/01/2025 Reviewed by: Rain Sim MA - Fully Assessed Reason for Visit: New [[id number]] Knee Pain [132] Injections [199] Primary Visit Diagnosis:Primary osteoarthritis of both knees [M17.0] Order(s):Large Joint Arthro/Inj: L knee joint [AKY524] Order #: [id number] [] betamethasone acetate-betamethasone sodium phosphate 6 mg (more content not included)... Normal [facility] Large Joint Arthro/Inj: L kn ee jointon 01-01-2025 Lisa Rodríguez PA -C 01/01/2025 12:13 PM Large Joint Arthro/Inj: L knee joint 01/01/2025 12:13 PM The procedure site was prepped in the usual sterile fashion. Site: L knee joint Medications: 6 mg betamethasone acetate-betamethasone sodium phosphate 6 mg/mL Anesthetics: 5 mL lidocaine (PF) 10 mg/mL (1 %) Outcome: Tolerated well, no immediate complications Post-injection instructions were reviewed with the patient and the patient voiced understanding of these instructions. Informed Consent Consent Obtained: Verbal [place] Protocol A moment to CARE was completed. SIGN IN Sign in communication not applicable due to emergent procedure. Personnel directly involved with the procedure wore the appropriate PPE. Special Equipment: N/A Patient/Surrogate Stated/Verified: Patient name, Date of , Relevant allergies and Intended procedure TIME OUT Relevant labs, photos, and/or imaging studies have been reviewed. Consent documented and matches the intended procedure. Correct side/site marked and visible. Medications required for procedure verified. No fire risk assessment and interventions applicable. No implant(s) inserted. SIGN OUT No specimen collected. All instruments, equipment, possible retained foreign bodies accounted for. No post-procedure POC communication to the patient's multidisciplinary team (including the bedside nurse for hospitalized patients) applicable. [facility] 12-24-2024 CNPN Telephone (DPQ) -------- MARQUITA OMALLEY I ([id number]) 1975 F Date Time Provider Department 12/24/24 LIZA AVILA DPQ During your visit today, we recorded the following information about you: Jenaro Peters 12/24/2024 3:41 PM Signed contacted patient to schedule consult per staff message from . Unable to reach left a detailed voicemail for scheduling Allergies As of Date: 12/24/2024 Noted Allergy Reaction BENADRYL (DIPHENHYDRAMINE) 02/13/2022 5 - Intolerance 14 - Other: See Comments Comments: Jittery, shaking, skin feels like its crawling, hyper LYRICA (PREGABALIN) 08/03/2010 14 - Other: See Comments Comments: Elevates blood pressure SEASONAL ALLERGIES 08/03/2010 14 - Other: See Comments Comments: Mostly Pollen-stuffy nose,headache SULFA (SULFONAMIDE ANTIBIOTICS) 08/03/2010 4 - Hives Date Reviewed: 12/22/2024 Reviewed by: Sherley Hartley MA - Fully Assessed Prescriptions as of 12/24/2024 - budesonide-formoterol (SYMBICORT) 160-4.5 mcg/actuation inhaler Inhale 2 puffs as instructed two times a day. - albuterol HFA (PROVENTIL HFA, VENTOLIN HFA) 90 mcg/actuation inhaler Inhale 2 puffs as instructed four times a day as needed. - predniSONE (DELTASONE) 20 mg tablet Take 2 tablets by mouth once daily. - MAGNESIUM ORAL Take by mouth. - ASHWAGANDHA EXTRACT ORAL Take by mouth once daily. - fhzwjwax-skpb-grbff-oreg -capry 100 mg-150 mg- 50 mg-150 mg cap Take by mouth once daily. - Zinc Acetate, Oral, 50 mg (zinc) cap Take by mouth once daily. - vitamin b complex capsule Take 1 capsule by mouth once daily. - gabapentin (NEURONTIN) 600 mg tablet Take 1 tablet by mouth three times a day for 180 days. - traZODone (DESYREL) 150 mg tablet Take 1 tablet by mouth daily at bedtime. - famotidine (PEPCID) 20 mg tablet Take 1 tablet by mouth two times a day as needed. Problem List As Of Date 12/24/2024 Noted Resolved Migraine without aura, intractable, without sta*02/20/2019 Obesity, Class II, BMI 35-39.9 [E66.812] 02/20/2019 Anxiety with depression [F41.8] 02/20/2019 Mild intermittent asthma without complication [*01/12/2020 ALISHA (obstructive sleep apnea) [G47.33] 08/31/2020 Obstructive sleep apnea (adult) (pediatric) [G4*04/11/2021 Vitamin D deficiency [E55.9] 02/05/2023 Diagnosed: 02/05/2023 NAFLD (nonalcoholic fatty liver disease) [K76.0]02/05/2023 Morbid obesity (HCC) [E66.01] 02/05/2023 History of lumbar fusion [Z98.1] 05/02/2023 Diagnosed: 05/02/2023 Polyp of gallbladder [K82.4] 09/15/2022 Diagnosed: 05/02/2023 Von Willebrand disease (HCC) [D68.00] 05/02/2023 Diagnosed: 05/02/2023 Obesity, Class III, BMI >= 40 [E66.813] 05/11/2023 Acute pain of left knee [M25.562] 05/26/2024 Incisional hernia, without obstruction or gangr*12/22/2024 Encounter Status:Closed by JENARO PETERS on 12/24/24 Normal [facility] Gastroenterology Visit Repor ton 12-24-2024 Gastroenterology Visit Report [facility] Gastroenterology [address] [place] [address] OFFICE VISIT Date of Service: 12/24/24 MR#: [id number] Acct: [id number] Name: MARQUITA OMALLEY I Rep #: [id number] : 1975 Provider: Thomas Andrew DO Age/Sex: 49/F Location: [facility] Status: Signed Intake Vital Signs 06/07/24 11:09 Height 5 ft 5 in Weight: 185 lb BMI 30.7 BP 155/96 H Respiration 18 Pulse 102 H Temp 98.2 F Temp Source Oral Pulse Oximetry (%) 99 Intake Visit Reasons: 6 M FU Allergies pregabalin (From Lyrica) Allergy (Verified 06/07/24 11:08) high bp Sulfa (Sulfonamide Antibiotics) Allergy (Verified 06/07/24 11:08) Hives diphenhydramine (From Benadryl) Adverse Reaction (Mild, Verified 06/07/24 11:09) SKIN adhesive tape (plastic tape) Adverse Reaction (Verified 06/07/24 11:08) Other Medications ???Medication ???Instructions ???Recorded ???Confirmed ???Type albuterol sulfate 90 mcg/actuation 1 - 2 puff inhalation Q6H PRN AR N 01/16/19 12/24/24 History aerosol inhaler Sob /Or Wheezing trazodone 50 mg tablet 25 - 150 mg PO QHS sleep 01/16/19 12/24/24 History lorazepam 0.5 mg tablet 0.5 mg PO BID PRN PRN Anxiety 08/0 07/0412/24/24 History famotidine 20 mg tablet 20 mg PO BID 01/04/24 12/24/24 His tory scopolamine base 1 mg over 3 days 1 patch transdermal Q3D #4 ea 12/24/24 Rx transdermal patch PFSH Medical History (Updated 06/27/24 @ 08:[address] Guzman Friend, DO) Elevated LFTs Seasonal allergies Wears glasses Depression Anxiety Alcohol use Low iron Excessive bleeding Migraine headache Loss of consciousness Gastric reflux Former smoker Obstructive sleep apnea CPAP (continuous positive airway pressure) dependence Asthma History of wrist fracture Back pain Surgical History H/O wrist surgery History of hysterectomy History of tubal ligation History of tonsillectomy History of wisdom tooth extraction History of discectomy History of bilateral breast reduction surgery History of appendectomy Family History Father Hypertension Mother Migraines Sister Migraines Grandmother Diabetes Social History household members: children housing: house number of children: 3 current occupational status: employed 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 PCP OV ? Biochemical CBC, CMP, t.bili, hepatitis ? AST [id number] H171-AP 91, plt 227 Fib4 2.38 ? US RUQ 2.3.23 fatty liver infiltration; 4mm gallbladder polyp. *BGI established 5.5.23 no history of IV drug use, hepatitis infection, blood transfusion, anti- arrhythmic medication. FH without liver disease. She is obese and is undergoing workup for gastric sleeve; she is borderline DMII. Biochemical CBC, CMP, LDH, haptoglobin, ceruloplasmin, copper, ammonia, AFP, ARMEN, A1c, lipid, coag, USAMA comp, AMA, hepatitis without pertinent abnormality. ESR H35, CRP H13.10, AST C446-PVI H186-AP 93, Vit D 1,25 H84.4, cANCA H1:20, ASM H27, ferritin H333 Contact 09.20.22 repeat labs in approximately four months. Work on weight loss and dietary management until then. No medications changes at this time. Will call with elastography results. ? US RUQ and Elastography 6.06.05 hepatic measurement 17.4cm with fatty infiltration, stiffness 6.8 kPa; gallbladder polyp [id number] adherent to gallbladder wall Contact 10.19.22 with US/elastography results. Reports weight loss 15lbs. She will repeat bloodwork just prior to next appointment. OV 01.30.23 reports she is doing well at this time without concerns to address. ? Biochemical ESR, LFT, ASM, ANCA, ferritin WNL. ? CRP H9.78 Contact 02.02.23 with results; very appreciative OV 07.24.23- Pt reports since last visit she had gastric sleeve at [facility] 05/10/23. Has done well with recovery. Has lost 26lbs since surgery. Asking if she still needs to continue with Ursodiol. No other abdominal pain, heartburn. BM are normal daily but can vary with diet. OV 8.23.24 pt reports that she (more content not included)... Normal [facility] CNOVon 12-22-2024 CNOV Office Visit (SOFÍA ) -------- MARQUITA OMALLEY I ([id number]) 1975 F Date Time Provider Department 12/22/24 1:30 PM VIK HENDERSON During your visit today, we recorded the following information about you: Temperature Pulse Blood pressure Weight 98.3 degrees 76/minute 127/79 83.5 kg Height 1.626 m Sherley Hartley MA 12/22/2024 3:41 PM Signed What is the reason for your visit today? Consult Who is your referring physician? Dr. Henderson Are you having poor oral intake? NO Have you had unintentional weight loss of 15 lbs/7 Kg in the last 3-6 months? NO Bowels: regular Wound: clean AND dry Temperature: No Drains: No Franklin Jamison MD 12/22/2024 3:41 PM Signed [facility] Abdominal [facility] - HISTORY AND PHYSICAL SUBJECTIVE: Chief Complaint: Presents for surgical opinion regarding umbilical hernia + diastasis of recti repair + abdominoplasty HPI: Marquita Omalley is a 49 year old female who with history of laparoscopic tubal ligation 2007 c/b umbilical hernia, and s/p laparoscopic sleeve gastrectomy 2022 presents for surgical opinion regarding umbilical hernia repair + diastasis of recti repair + abdominoplasty. She notes that she has lost 90 lbs since her sleeve gastrectomy, and is bothered by excess skin and her diastasis of the rectus muscles. She notes that her previous plastic surgeon recommended that she has her umbilical hernia repaired first and diastasis before proceeding with an abdominoplasty. Her primary concern is being able to get the abdominoplasty, and she would be interested in the ability of a combination case with General Surgery and Plastic Surgery for simultaneous repair. On review today, she notes being asymptomatic from her umbilical hernia. She denies having any pain, or ever experiencing symptoms of obstruction from the hernia. She denies having any nausea or vomiting, and states that her bowel movements are normal. Pathology from [facility] + Liver, biopsy 2022- - Hepatic parenchyma with changes of steatohepatitis with bridging fibrosis. - Stomach, partial gastrectomy: Dr Caldwell - Segment of stomach with oxyntic type gastric mucosa and fundic gland polyps, negative for dysplasia. - No helicobacter organisms identified. 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 Sporting Activity: Moderate (once/week) Co-morbidities: No Significant Comorbidities Complete Review of Systems: GENERAL: No weight loss, malaise or fevers GI: No nausea, vomiting, or diarrhea : No history of dysuria, frequency or incontinence PAST MEDICAL HISTORY[1] PAST SURGICAL HISTORY Procedure Laterality Date ABDOMINAL SURGERY HX APPENDECTOMY 1982 APPENDECTOMY HX BACK SURGERY HX BREAST SURGERY HX COLONOSCOPY SCREENING 02/13/2022 10 year next colonoscopy 2031 COLPOPEXY VAGINAL INTRAPERITONEAL APPROACH 01/23/2019 uterosacral ligament fixation FRACTURE SURGERY LIG/TRNSXJ FLP TUBE ABDL/VAG APPR UNI/BI 06/2007 MAMMO MAMMOGRAM 07/20/2010 OTHER lumbar spinal fusion L5-S1 PAST SURGICAL HISTORY OF 09/2008 Micro Disectomy L5S1 PAST SURGICAL HISTORY OF Left 2013 Left wrist surgery POST COLPORRHAPHY RECTOCELE W/WO PERINEORRHAPHY 01/23/2019 posterior repair REDUCTION OF LARGE BREAST 09/2006 Bilateral SKIN BIOPSY HX SLING OPER STRES INCONTINENCE 01/23/2019 TVT exact TONSILLECTOMY HX VAGINAL HYSTERECTOMY VAGINAL HYSTERECTOMY UTERUS 250 GM/< 01/23/2019 tubes and ovaries remain FAMILY HISTORY[2] SOCIAL HISTORY[3] Prior to Admission medications as of 12/22/24 1256 Medication Sig Last Dose Taking budesonide-formoterol (SYMBICORT) 160-4.5 mcg/actuation inhaler Inhale 2 puffs as instructed two times a day. albuterol HFA (PROVENTIL HFA, VENTOLIN HFA) 90 mcg/actuation inhaler Inhale 2 puffs as instructed four times a day as needed. predniSONE (DELTASONE) 20 mg tablet Take 2 tablets by mouth once daily. Patient not taking: Reported on 12/04/2024 MAGNESIUM ORAL Take by mouth. ASHWAGANDHA EXTRACT ORAL Take by mouth once daily. bnrmferr-muuo-rhssa-oreg -capry 100 mg-150 mg- 50 mg-150 mg cap Take by mouth once daily. Zinc Acetate, Oral, 50 mg (zinc) cap Take by mouth once daily. vitamin b complex capsule Take 1 capsule by mouth once daily.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 back. - Pain exacerbated by arm movement and deep breathing. - No visible bruising noted by the patient. - Frequent chiropractic visits for back issues. - Concerned about potential rib fracture; seeking evaluation before a planned 15-hour drive to [place] on Sunday. Review of Systems Musculoskeletal: (+) right rib pain, (+) pain with deep inspiration, (+) pain with arm elevation Objective BP 137/87 Pulse 85 Temp 36.7 ?C (98 ?F) Resp 20 Wt 84 kg (185 lb 3 oz) LMP 01/03/2019 (Exact Date) SpO2 98% BMI 31.79 kg/m? PAST MEDICAL HISTORY Diagnosis Date Anxiety Arthritis Chest pain Depression Ear infection Migraines Obesity, Class II, BMI 35-39.9 02/20/2019 PTSD (post-traumatic stress disorder) Sciatica UTI (lower urinary tract infection) PAST SURGICAL HISTORY Procedure Laterality Date ABDOMINAL SURGERY HX APPENDECTOMY 1982 APPENDECTOMY HX BACK SURGERY HX BREAST SURGERY HX COLONOSCOPY SCREENING 02/13/2022 10 year next colonoscopy 2031 COLPOPEXY VAGINAL INTRAPERITONEAL APPROACH 01/23/2019 uterosacral ligament fixation FRACTURE SURGERY LIG/TRNSXJ FLP TUBE ABDL/VAG APPR UNI/BI 06/2007 MAMMO MAMMOGRAM 07/20/2010 OTHER lumbar spinal fusion L5-S1 PAST SURGICAL HISTORY OF 09/2008 Micro Disectomy L5S1 PAST SURGICAL HISTORY OF Left 2013 Left wrist surgery POST COLPORRHAPHY RECTOCELE W/WO PERINEORRHAPHY 01/23/2019 posterior repair REDUCTION OF LARGE BREAST 09/2006 Bilateral SKIN BIOPSY HX SLING OPER STRES INCONTINENCE 01/23/2019 TVT exact TONSILLECTOMY HX VAGINAL HYSTERECTOMY VAGINAL HYSTERECTOMY UTERUS 250 GM/< 01/23/2019 tubes and ovaries remain ALLERGIES Benadryl [Diphenhydramine], Lyrica [Pregabalin], Seasonal Allergies, and Sulfa (Sulfonamide Antibiotics) MEDICATIONS MAGNESIUM ORAL Take by mouth. ASHWAGANDHA EXTRACT ORAL Take by mouth once daily. shkqlciq-upgt-xcsez-oreg -capry 100 mg-150 mg- 50 mg-150 mg cap Take by mouth once daily. Zinc Acetate, Oral, 50 mg (zinc) cap Take by mouth once daily. vitamin b complex capsule Take 1 capsule by mouth once daily. albuterol HFA (PROVENTIL HFA, VENTOLIN HFA) 90 mcg/actuation inhaler Inhale 2 Puffs as instructed four times a day as needed. gabapentin (NEURONTIN) 600 mg tablet Take 1 tablet by mouth three times a day for 180 days. traZODone (DESYREL) 150 mg tablet Take 1 tablet by mouth daily at bedtime. famotidine (PEPCID) 20 mg tablet Take 1 tablet by mouth two times a day as needed. fluticasone-salmeterol (ADVAIR DISKUS) 250-50 mcg/dose inhaler Inhale 1 Puff as instructed two times a day. Rinse and gargle mouth after use with water. FAMILY HISTORY Problem Relation Age of Onset Allergies Mother Headache Mother Obesity Mother Hypertension Father Heart Father Obesity Sister Allergies Sister Headache Sister Diabetes Maternal Grandmother Emphysema Maternal Grandmother Breast Cancer Maternal Grandmother Emphysema Maternal Grandfather Alcohol/Drug Paternal Grandfather Headache Daughter other (Pneumonia) Daughter Headache Daughter Headache Son other (RSV) Son Psychiatry Maternal Uncle Suicide Social History Tobacco Use Smoking status: Former Current packs/day: 0.00 Types: Cigarettes Quit date: 08/03/2005 Years since quittin.2 Smokeless tobacco: Never Vaping Use Vaping status: Never Used Substance Use Topics Alcohol use: Not Currently Comment: Rarely Drug use: No Physical Exam Constitutional: Appearance: Normal appearance. Cardiovascular: Rate and Rhythm: Normal rate and regular rhythm. Pulses: Normal pulses. Heart sounds: Normal heart sounds. Pulmonary: Effort: Pulmonary effort is normal. Breath sounds: Normal breath sounds. Chest: Musculoskeletal: Right shoulder: Normal. No tenderness. Right upper arm: Normal. Thoracic back: Tenderness present. No swelling, edema or bony tenderness. Normal range of motion. Back: Neurological: Mental Status: She is alert. {1. Rib pain on right side (R07.8 (more content not included)... Normal [facility] XR CHEST 2V FRONTAL/LATon XR CHEST 2V FRONTAL/LAT * * *Final Repor t* * * DATE OF EXAM: Nov 07 2024 11:03AM WOX [id number] - XR CHEST 2V FRONTAL/LAT / PROCEDURE REASON: Rib pain on right side * * * * Physician Interpretation * * * * EXAMINATION: CHEST RADIOGRAPH (2 VIEW FRONTAL and LATERAL) CLINICAL HISTORY: Rib pain on right side MQ: XC2_6 EXAM DATE/TIME: 11/07/2024 11:03 AM COMPARISON: No relevant prior studies available. RESULT: Lines, tubes, and devices: None. Lungs and pleura: No consolidation. No lung mass. No pleural effusion. No pneumothorax. Cardiomediastinal silhouette: Normal cardiomediastinal silhouette. Bones and soft tissues: Unremarkable. IMPRESSION: No acute radiographic abnormality. Packer Fuser: MATT Transcribe Date/Time: Nov 07 2024 11:22A Dictated by : SELENE JIMENEZ MD This examination was interpreted and the report reviewed and electronically signed by: SELENE JIMENEZ MD on Nov 07 2024 11:22AM EST [id number] Normal [facility] XR Chest PA and Lateralon IMPRESSION: No acute radiographic abnormality. Packer Fuser: MATT Transcribe Date/Time: Nov 07 2024 11:22A Dictated by : SELENE JIMENEZ MD This examination was interpreted and the report reviewed and electronically signed by: SELENE JIMENEZ MD on Nov 07 2024 11:22AM EST DIVISION OF RADIOLOGY * * *Final Report* * * DATE OF EXAM: Nov 07 2024 11:03AM WOX [id number] - XR CHEST 2V FRONTAL/LAT / PROCEDURE REASON: Rib pain on right side * * * * Physician Interpretation * * * * EXAMINATION: CHEST RADIOGRAPH (2 VIEW FRONTAL & LATERAL) CLINICAL HISTORY: Rib pain on right side MQ: XC2_6 EXAM DATE/TIME: 11/07/2024 11:03 AM COMPARISON: No relevant prior studies available. RESULT: Lines, tubes, and devices: None. Lungs and pleura: No consolidation. No lung mass. No pleural effusion. No pneumothorax. Cardiomediastinal silhouette: Normal cardiomediastinal silhouette. Bones and soft tissues: Unremarkable. DIVISION OF RADIOLOGY Provider, [facility] - 11/07/2024 * * *Final Report* * * DATE OF EXAM: Nov 07 2024 11:03AM WOX [id number] - XR CHEST 2V FRONTAL/LAT / PROCEDURE REASON: Rib pain on right side * * * * Physician Interpretation * * * * EXAMINATION: CHEST RADIOGRAPH (2 VIEW FRONTAL & LATERAL) CLINICAL HISTORY: Rib pain on right side MQ: XC2_6 EXAM DATE/TIME: 11/07/2024 11:03 AM COMPARISON: No relevant prior studies available. RESULT: Lines, tubes, and devices: None. Lungs and pleura: No consolidation. No lung mass. No pleural effusion. No pneumothorax. Cardiomediastinal silhouette: Normal cardiomediastinal silhouette. Bones and soft tissues: Unremarkable. IMPRESSION IMPRESSION: No acute radiographic abnormality. Packer Fuser: MATT Transcribe Date/Time: Nov 07 2024 11:22A Dictated by : SELENE JIMENEZ MD This examination was interpreted and the report reviewed and electronically signed by: SELENE JIMENEZ MD on Nov 07 2024 11:22AM EST [facility] Radiology Study observation (narrative) [facility] XR Chest PA and LateralOrder ed By: Ccf Provider on 11-07-2024 [facility] DBT Breast - bilateral olliee abram 11-06-2024 Radiology Study observation (narrative) [facility] IRIS SCREENING W TOMOon 11-06 IRIS SCREENING W VIELKA * * *Final Report* * * DATE OF EXAM: Nov 06 2024 1:13PM WRW 0582 - IRIS SCREENING W VIELKA / PROCEDURE REASON: Encounter for screening mammogram for breast cancer * * * * Physician Interpretation * * * * RESULT: [address] [address] [place] [address] #[id number] - IRIS SCREENING W VIELKA HISTORY: 49 year-old patient presents for screening. Patient is asymptomatic in both breasts. Patient states no personal history of breast cancer. The patient has a family history of breast and ovarian cancer. COMPARISON STUDIES: The present examination has been compared to prior imaging studies dated 02/23/2020 (mammogram), 01/04/2021 (mammogram), 01/09/2022 (mammogram) and 09/19/2023 (mammogram). MAMMOGRAM TECHNIQUE: The study was acquired using full field digital technology and interpreted from soft copy. Digital Breast Tomosynthesis (DBT) images were obtained and used to assist in the interpretation of this examination. MAMMOGRAM FINDINGS: There are scattered areas of fibroglandular density. There are stable post-reduction changes in both breasts. No suspicious masses, calcifications or other abnormalities are seen in either breast. IMPRESSION: There is no mammographic evidence of malignancy. Routine screening mammogram is recommended. Annual mammogram will be due in 1 year. BI-RADS Category 2: Benign RISK: Based on the Tyrer-Cuzick (TC) risk assessment model, this patient has a 8.9% lifetime risk of developing breast cancer, meaning they are at average risk for developing breast cancer. However, this is only an estimate based on available history provided on the patient's questionnaire. We encourage all patients to talk with their providers about these results, further recommendations for managing breast health, and appropriate supplemental screening options if the patient has dense breast tissue. Interpreting Radiologist: Sanjuana Godoy M.D. Electronically signed on: 11/08/2024 Packer Fuser: ABILIO Transcribe Date/Time: Nov 06 2024 12:36P Dictated by: SANJUANA GODOY MD This examination was interpreted and the report reviewed and electronically signed by: SANJUANA GODOY MD on Nov 08 2024 11:40AM EST [id number] Normal [facility] CNOVon 10-21-2024 CNOV Office Visit (GENSWS ) -------- MARQUITA OMALLEY I ([id number]) 1975 F Date Time Provider Department 10/21/24 1:00 PM LEORA HA During your visit today, we recorded the following information about you: Temperature Pulse Blood pressure Weight 97.8 degrees 107/minute 130/78 83.6 kg Leora Ha MD 10/21/2024 2:35 PM Signed Subjective: Patient is status post her CAT scan of her abdomen and pelvis on 09/23/2024. This showed a small umbilical defect as well as a rather large diastases recti. Patient states that she had a meeting with her plastic surgeon and what she took from that was he was not interested in doing such a large repair of the diastases recti as well as an abdominoplasty. Objective:Blood pressure 130/78, pulse 107, temperature 36.6 ?C (97.8 ?F), weight 83.6 kg (184 lb 3.2 oz), last menstrual period 01/03/2019, SpO2 99%. Small umbilical defect is reducible. No rebound guarding or peritoneal pain. Assessment:Diastasis recti (primary encounter diagnosis) Umbilical hernia without obstruction and without gangrene Plan: I am to refer her up to the hernia center to be evaluated for a possible laparoscopic umbilical hernia repair with possible diastases recti repair. If that can be done laparoscopically then hopefully of the abdominoplasty can be done easier. Allergies As of Date: 10/21/2024 Noted Allergy Reaction BENADRYL (DIPHENHYDRAMINE) 02/13/2022 5 - Intolerance 14 - Other: See Comments Comments: Jittery, shaking, skin feels like its crawling, hyper LYRICA (PREGABALIN) 08/03/2010 14 - Other: See Comments Comments: Elevates blood pressure SEASONAL ALLERGIES 08/03/2010 14 - Other: See Comments Comments: Mostly Pollen-stuffy nose,headache SULFA (SULFONAMIDE ANTIBIOTICS) 08/03/2010 4 - Hives Date Reviewed: 10/21/2024 Reviewed by: Eliezer Garcia RN - Fully Assessed Reason for Visit: Follow Up [171] Cmt: Ct 09/23/2024 Primary Visit Diagnosis:Diastasis recti [M62.08] Other Visit Diagnosis:Umbilical hernia without obstruction and without gangrene [K42.9] Order(s):CONSULT TO GENERAL SURGERY [9057] Order #: [id number]: 1 FUTURE Prescriptions as of 10/21/2024 - MAGNESIUM ORAL Take by mouth. - ASHWAGANDHA EXTRACT ORAL Take by mouth once daily. - sgzrrjfa-fjor-uhzdt-oreg -capry 100 mg-150 mg- 50 mg-150 mg cap Take by mouth once daily. - Zinc Acetate, Oral, 50 mg (zinc) cap Take by mouth once daily. - vitamin b complex capsule Take 1 capsule by mouth once daily. - albuterol HFA (PROVENTIL HFA, VENTOLIN HFA) 90 mcg/actuation inhaler Inhale 2 Puffs as instructed four times a day as needed. - gabapentin (NEURONTIN) 600 mg tablet Take 1 tablet by mouth three times a day for 180 days. - traZODone (DESYREL) 150 mg tablet Take 1 tablet by mouth daily at bedtime. - famotidine (PEPCID) 20 mg tablet Take 1 tablet by mouth two times a day as needed. - fluticasone-salmeterol (ADVAIR DISKUS) 250-50 mcg/dose inhaler Inhale 1 Puff as instructed two times a day. Rinse and gargle mouth after use with water. Problem List As Of Date 10/21/2024 Noted Resolved Migraine without aura, intractable, without sta*02/20/2019 Obesity, Class II, BMI 35-39.9 [E66.812] 02/20/2019 Anxiety with depression [F41.8] 02/20/2019 Mild intermittent asthma without complication [*01/12/2020 ALISHA (obstructive sleep apnea) [G47.33] 08/31/2020 Obstructive sleep apnea (adult) (pediatric) [G4*04/11/2021 Vitamin D deficiency [E55.9] 02/05/2023 Diagnosed: 02/05/2023 NAFLD (nonalcoholic fatty liver disease) [K76.0]02/05/2023 Morbid obesity (HCC) [E66.01] 02/05/2023 History of lumbar fusion [Z98.1] 05/02/2023 Diagnosed: 05/02/2023 Polyp of gallbladder [K82.4] 09/15/2022 Diagnosed: 05/02/2023 Von Willebrand disease (HCC) [D68.00] 05/02/2023 Diagnosed: 05/02/2023 Obesity, Class III, BMI >= 40 [E66.813] 05/11/2023 Acute pain of left knee [M25.562] 05/26/2024 Encounter Status:Closed by [facility] Normal [facility] CNCOon 10-07-2024 CNCO Letter Text Normal [facility] 09-29-2024 CNPN Telephone (ROSMERY) -------- MARQUITA OMALLEY I ([id number]) 1975 F Date Time Provider Department 09/29/24 BRIGETTE MARTIN During your visit today, we recorded the following information about you: Taylor Campbell RN 09/29/2024 4:03 PM Signed Pt called in and reports she had an abdominal CT done with Dr Ha because he was going to do hernia surgery. She states the report showed nodules on her lung. He put in an order for a consult to the actionable findings clinic. She said she received a MyChart message today with a number to call to set up an appointment with them, but she said it could take up to 2 weeks to get that done. Pt wants to know why her PCPs office isn't able to put in an order for something now so she can get answers. Pt states she doesn't want to wait 2 weeks, this is her health and she needs something to focus on now. She states the nurse at Dr Ha's office just blew her off when she called them. Please call and advise Pt. RUPINDER Sood Christy, APRN.RENETTA 09/29/2024 4:29 PM Signed Can please let patient know that I reviewed the CT results. It looks like there was some incidental small lung nodules noted. This is not an uncommon finding. Because of the nodules are tiny and her smoking history, the recommendation is to repeat the CT scan in one year to ensure stability. The order is in and will just need to be scheduled at that time. Brigette Martin APRN.Taylor Maguire RN 09/29/2024 4:47 PM Signed Called and left a detailed voicemail notifying patient of providers message. Clinic phone number was left in case patient had any questions. Taylor Campbell RN Allergies As of Date: 09/29/2024 Noted Allergy Reaction BENADRYL (DIPHENHYDRAMINE) 02/13/2022 5 - Intolerance 14 - Other: See Comments Comments: Jittery, shaking, skin feels like its crawling, hyper LYRICA (PREGABALIN) 08/03/2010 14 - Other: See Comments Comments: Elevates blood pressure SEASONAL ALLERGIES 08/03/2010 14 - Other: See Comments Comments: Mostly Pollen-stuffy nose,headache SULFA (SULFONAMIDE ANTIBIOTICS) 08/03/2010 4 - Hives Date Reviewed: 09/22/2024 Reviewed by: Alfred Daniels RT(R) - Fully Assessed Reason for Visit: Patient Update [1234] Orders [681] Primary Visit Diagnosis:Lung nodule [R91.1] Order(s):CT CHEST WO MADINA [9122077] Order #: [id number] FUTURE Prescriptions as of 09/29/2024 - MAGNESIUM ORAL Take by mouth. - ASHWAGANDHA EXTRACT ORAL Take by mouth once daily. - wqkzirbu-wguk-vmwkt-oreg -capry 100 mg-150 mg- 50 mg-150 mg cap Take by mouth once daily. - Zinc Acetate, Oral, 50 mg (zinc) cap Take by mouth once daily. - vitamin b complex capsule Take 1 capsule by mouth once daily. - albuterol HFA (PROVENTIL HFA, VENTOLIN HFA) 90 mcg/actuation inhaler Inhale 2 Puffs as instructed four times a day as needed. - gabapentin (NEURONTIN) 600 mg tablet Take 1 tablet by mouth three times a day for 180 days. - traZODone (DESYREL) 150 mg tablet Take 1 tablet by mouth daily at bedtime. - famotidine (PEPCID) 20 mg tablet Take 1 tablet by mouth two times a day as needed. - fluticasone-salmeterol (ADVAIR DISKUS) 250-50 mcg/dose inhaler Inhale 1 Puff as instructed two times a day. Rinse and gargle mouth after use with water. Problem List As Of Date 09/29/2024 Noted Resolved Migraine without aura, intractable, without sta*02/20/2019 Obesity, Class II, BMI 35-39.9 [E66.812] 02/20/2019 Anxiety with depression [F41.8] 02/20/2019 Mild intermittent asthma without complication [*01/12/2020 ALISHA (obstructive sleep apnea) [G47.33] 08/31/2020 Obstructive sleep apnea (adult) (pediatric) [G4*04/11/2021 Vitamin D deficiency [E55.9] 02/05/2023 Diagnosed: 02/05/2023 NAFLD (nonalcoholic fatty liver disease) [K76.0]02/05/2023 Morbid obesity (HCC) [E66.01] 02/05/2023 History of lumbar fusion [Z98.1] 05/02/2023 Diagnosed: 05/02/2023 Polyp of gallbladder [K82.4] 09/15/2022 Diagnosed: 05/02/2023 Von Willebrand disease (HCC) [D68.00] 05/02/2023 Diagnosed: 05/02/2023 Obesity, Class III, BMI >= 40 [E66.813] 05/11/2023 Acute pain of left knee [M25.562] 05/26/2024 Encounter Status:Closed by TAYLOR CAMPBELL on 09/29/24 Normal [facility] CT ABD/PEL W IVCONon 05-13-[address] ABD/PEL W IVCON * * *Final Report* * * DATE OF EXAM: Sep 23 2024 10:24AM [facility] 0530 - CT ABD/PEL W IVCON / PROCEDURE REASON: Incisional hernia, without obstruction or gangrene * * * * Physician Interpretation * * * * EXAMINATION: CT ABDOMEN AND PELVIS WITH IV CONTRAST CLINICAL HISTORY: Incisional hernia, without obstruction or gangrene TECHNIQUE: CT of the abdomen and pelvis was performed using standard technique, scanning from just above the dome of the diaphragm to the symphysis pubis. MQ: CTAP_3 Contrast: IV: 100 ml of Omnipaque 350 Oral: 10 ml of Omni 240 10-25ml diluted with water CT Radiation dose: Integrated Dose-length product (DLP) for this visit = 646 mGy*cm. CT Dose Reduction Employed: Automated exposure control(AEC) and iterative recon RESULT: Liver: The liver is of low-density, when compared the spleen, suggesting fatty infiltration of the liver. More focal fatty change is seen within liver, adjacent to the falciform ligament. There is an approximately 2.4 x 1.5 cm cyst seen within left hepatic lobe (series 5, image #30). Additionally, there are subcentimeter, low-attenuation lesions seen within liver, which are too small to characterize but statistically relate to subcentimeter cysts. Biliary: The gallbladder is relatively collapsed. There is no biliary dilation. Question cholelithiasis versus gallbladder sludge. Spleen: No mass. No splenomegaly. Pancreas: There is no obvious focal discrete pancreatic mass or pancreatic ductal dilation. Adrenals: No mass. Kidneys: There is no hydronephrosis or perinephric fluid collection. Nonobstructing left nephrolithiasis. GI tract: There is a tiny hiatal hernia. Postoperative changes are seen involving the greater curvature of the stomach. There are no dilated loops of bowel to suggest obstruction. The urinary bladder is nondistended. There is wall thickening involving loops of bowel, including the right abdomen. There is sigmoid colon diverticulosis, without evidence for diverticulitis. Lymph nodes: There are prominent less than 1 cm abdominal lymph nodes, likely reactive. Mesentery/Peritoneum: No abdominal ascites. Retroperitoneum: No mass. Vasculature: No abdominal aortic aneurysm. Pelvis: Apparent urinary bladder wall thickening likely relates to underdistention. There are prominent, less than 1 cm pelvic lymph nodes, likely reactive. Phleboliths are seen within the pelvis. There is no pelvic mass or pelvic ascites. Bones/Soft Tissues: There is diastases of the rectus abdominis musculature. Small umbilical hernia, containing omental fat. There is a loose body seen about the proximal right femur. A few presumed bone islands are seen within the osseous structures. Vacuum phenomena is seen involving the sacroiliac joint spaces, bilaterally. The patient is status post posterior and anterior fusion and L5-S1. Lower thorax: There is an approximately 5 mm subpleural nodule seen within the right lower lobe (series 5, image #9). There is an approximately 3 mm subpleural nodule seen within the right lower lobe (series 5, image #23). There is approximately 3 mm subpleural nodule the left lung base (series 5, image #37). IMPRESSION: Diastases of the rectus abdominis musculature. Small umbilical hernia, containing omental fat. No acute abdominal or pelvic process is identified. Subcentimeter pulmonary nodules, measuring up to 5 mm in size. Incidental Finding: Follow-up Acuity: Incidental Finding: Solid: <6 mm (solitary or multiple) Routing Code: N/A Recommendation: No imaging follow-up is recommended Time Frame: N/A Comments: If there are risk factors for lung malignancy, a follow-up chest CT exam could be obtained in 12 months --END OF FINDING-- Packer Fuser: MATT Transcribe Date/Time: Sep 24 2024 4:36P Dictated by : DELILAH YEBOAH MD This examination was interpreted and the report reviewed and electronically signed by: DELILAH YEBOAH MD on Sep 24 2024 4:44PM EST [id number] ACTIONABLE Invalid Interpretation Code [facility] CNOVon 09-09-2024 CNOV Office Visit (GENSWS ) -------- MARQUITA OMALLEY I ([id number]) 1975 F Date Time Provider Department 09/09/24 4:00 PM LEORA HAS During your visit today, we recorded the following information about you: Temperature Pulse Blood pressure Weight 97.9 degrees 88/minute 120/78 84.2 kg Height 1.626 m Eliezer Garcia RN 09/09/2024 10:54 AM Signed REVIEW OF SYSTEMS: General: The patient denies fatigue, NOTES weight loss, denies weight gain, denies feeling hot, and denies feelings of cold. Eyes: The patient denies glaucoma, denies eye injury/surgery, does not wear glasses or contacts. Ear/Nose/Throat: The patient NOTES allergies, denies hayfever, denies ear infections, and denies bloody noses. Cardiovascular: The patient denies chest pain, denies heart disease, denies high blood pressure,denies cardiac stent, denies prior heart attack, denies irregular heart beat, denies high cholesterol, denies poor circulation, denies heart failure, other cardiac issues, denies claudication, denies cold feet, denies peripheral arterial stent. Respiratory: The patient denies tuberculosis, denies pneumonia, denies frequent cough, denies pulmonary embolism, denies shortness of breath, and denies coughing up blood. Gastrointestinal: The patient denies difficulty swallowing, denies acid reflux, denies ulcers, denies vomiting, denies jaundice/hepatitis, denies gallbladder problems, denies black or tarry stools, denies hemorrhoids, denies bleeding from rectum, denies diverticulitis, denies constipation, denies diarrhea, denies loss of stool control, and NOTES hernias. Kidney/Bladder: The patient denies kidney stones, denies urine infections, and denies bloody urine. Skin: The patient denies a history of skin cancer, NOTES bleeding/changing moles, and denies a history of skin rash. Neurologic: The patient denies a history of epilepsy/convulsions, NOTES headaches, denies head/spinal injuries, and denies stroke/TIA. Psychiatric: The patient denies psychiatric medications, denies depression, and denies voices, denies substance abuse. Endocrine: The patient denies thyroid disorders, denies diabetes, and denies hormonal problems. Hematologic: The patient denies a history of bruising, denies bleeding, and denies anemia, denies blood clots. Infections: The patient denies a history of measles and mumps, denies rheumatic fever, and denies sexually transmitted diseases. Musculoskeletal: The patient NOTES back pain/injury, NOTES back problems, denies sciatica, NOTES knee/foot trouble, denies arthritis, or denies gout. When was patient's last Mammogram screening? September 2023 Last Colonoscopy: 2022 RUPINDER Torres Daniel P, MD 09/09/2024 11:23 AM Signed HISTORY AND PHYSICAL Marquita Omalley 1975 REFERRING PHYSICIAN: Brigette Martin APRN.C* CHIEF COMPLAINT: Consult (hernia) HPI: The patient is a 48 year old female with a complaint of bulge at her umbilical area. Patient had tubal ligation many many years ago noted that after that surgery she felt the pop and felt a bulge from where the previous port was located. She has recently seen a plastic surgeon since she is lost a lot of weight because she is interested in abdominoplasty. He recommended that she have her incisional defect repaired first.. The patient is being seen by me today at the request of Dr. Martin for my opinion and advice regarding Incisional hernia, without obstruction or gangrene (primary encounter diagnosis). PAST MEDICAL HISTORY Diagnosis Date Anxiety Arthritis Chest pain Depression Ear infection Migraines Obesity, Class II, BMI 35-39.9 02/20/2019 PTSD (post-traumatic stress disorder) Sciatica UTI (lower urinary tract infection) PAST SURGICAL HISTORY Procedure Laterality Date ABDOMINAL SURGERY HX APPENDECTOMY 1982 APPENDECTOMY HX BACK SURGERY HX BREAST SURGERY HX COLONOSCOPY SCREENING 02/13/2022 10 year next colonoscopy 2031 COLPOPEXY VAGINAL INTRAPERITONEAL APPROACH 01/23/2019 uterosacral ligament fixation FRACTURE SURGERY LIG/TRNSXJ FLP TUBE ABDL/VAG APPR UNI/BI 06/2007 MAMMO MAMMOGRAM 07/20/2010 OTHER lumbar spinal fusion L5-S1 PAST SURGICAL HISTORY OF 09/2008 Micro Disectomy L5S1 PAST SURGICAL HISTORY OF Left 2013 Left wrist surgery POST COLPORRHAPHY RECTOCELE W/WO PERINEORRHAPHY 01/23/2019 posterior repair REDUCTION OF LARGE BREAST 09/2006 Bilateral SKIN BIOPSY HX SLING OPER STRES INCONTINENCE 01/23/2019 TVT exact TONSILLECTOMY HX VAGINAL HYSTERECTOMY VAGINAL HYSTERECTOMY UTERUS 250 GM/< 01/23/2019 tubes and ovaries remain Current Outpatient Medications Medication Sig MAGNESIUM ORAL Take by mouth. ASHWAGANDHA EXTRACT ORAL Take by mouth once daily. ymfpxcbq-qxzg-plnpy-oreg -capry 100 mg-150 mg- 50 mg-150 mg cap Take by mouth once daily. Zinc Acetate, Oral (more content not included)... Normal [facility] CNCOon 09-04-2024 CNCO Letter Text Normal [facility] CNOVon 09-04-2024 CNOV Office Visit (PLASAM ) -------- MARQUITA OMALLEY I ([id number]) 1975 F Date Time Provider Department 09/04/24 11:30 AM Karely PLASENCIA During your visit today, we recorded the following information about you: Weight Height 85.3 kg 1.638 m Karely Plasencia MD 09/04/2024 12:30 PM Signed Ms. Marquita Omalley is a 48 year old, female presents for consultation for body contouring. The main complaint is (skin laxity and abdominal wall protrusion. Area of concern - abdomen Marquita has 3 children with ages - 21, 18, 17. Plans of having children in the immediate future: NO. Prior surgery in the Abdomen: Yes. Leads an active lifestyle: Yes Prior weight loss: Yes. Prior bariatric surgery; Yes Amount of weight loss: 90 lbs The patient's bariatric surgeon Gayle. Last f/u: 2024. Social History Tobacco Use Smoking status: Former Current packs/day: 0.00 Types: Cigarettes Quit date: 08/03/2005 Years since quittin.1 Smokeless tobacco: Never Vaping Use Vaping status: Never Used Substance Use Topics Alcohol use: Not Currently Comment: Rarely Drug use: No Smoking history: No PAST MEDICAL HISTORY Diagnosis Date Anxiety Arthritis Chest pain Depression Ear infection Migraines Obesity, Class II, BMI 35-39.9 02/20/2019 PTSD (post-traumatic stress disorder) Sciatica UTI (lower urinary tract infection) PAST SURGICAL HISTORY Procedure Laterality Date ABDOMINAL SURGERY HX APPENDECTOMY 1982 APPENDECTOMY HX BACK SURGERY HX BREAST SURGERY HX COLONOSCOPY SCREENING 02/13/2022 10 year next colonoscopy 2031 COLPOPEXY VAGINAL INTRAPERITONEAL APPROACH 01/23/2019 uterosacral ligament fixation FRACTURE SURGERY LIG/TRNSXJ FLP TUBE ABDL/VAG APPR UNI/BI 06/2007 MAMMO MAMMOGRAM 07/20/2010 OTHER lumbar spinal fusion L5-S1 PAST SURGICAL HISTORY OF 09/2008 Micro Disectomy L5S1 PAST SURGICAL HISTORY OF Left 2013 Left wrist surgery POST COLPORRHAPHY RECTOCELE W/WO PERINEORRHAPHY 01/23/2019 posterior repair REDUCTION OF LARGE BREAST 09/2006 Bilateral SKIN BIOPSY HX SLING OPER STRES INCONTINENCE 01/23/2019 TVT exact TONSILLECTOMY HX VAGINAL HYSTERECTOMY VAGINAL HYSTERECTOMY UTERUS 250 GM/< 01/23/2019 tubes and ovaries remain Exam: LMP 01/03/2019 Severe- musculo-fascial laxity Reducible umbilical hernia Severe skin excess (Z98.84) 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 I noted that the main cause of the protrusion is musculo-fascial laxity and intra-abdominal contents pushing out- there is a limit on how much this could be corrected and she acknowledged that. I discussed the risks and complications of the procedure. I discussed the incisions to be used and the anticipated scar. Discussed the anesthesia to be used: General. Discussed the anticipated postop course. Recommendation: !- address her umbilical hernia with a general surgeon first 2- Extended abdominoplasty; general; outpatient J Len Plasencia MD' Referring Provider: ELANA NOEL [[id number]] Allergies As of Date: 09/04/2024 Noted Allergy Reaction BENADRYL (DIPHENHYDRAMINE) 02/13/2022 5 - Intolerance 14 - Other: See Comments Comments: Jittery, shaking, skin feels like its crawling, hyper LYRICA (PREGABALIN) 08/03/2010 14 - Other: See Comments Comments: Elevates blood pressure SEASONAL ALLERGIES 08/03/2010 14 - Other: See Comments Comments: Mostly Pollen-stuffy nose,headache SULFA (SULFONAMIDE ANTIBIOTICS) 08/03/2010 4 - Hives Date Reviewed: 09/04/2024 Reviewed by: Cristina Kaufman RN - Fully Assessed Reason for Visit: Consult [173] Visit Diagnoses:S/P laparoscopic sleeve gastrectomy [Z98.84] Obesity, Class I, BMI 30.0-34.9 (see actual BMI) [E66.811] Rash and nonspecific skin eruption [R21] Intertrigo [L30.4] Excess skin [L98.7] Order(s):CONSULT TO PLASTIC SURGERY [9040] Order #: [id number]: 1 Prescriptions as of 09/04/2024 - MAGNESIUM ORAL Take by mouth. - ASHWAGANDHA EXTRACT ORAL Take by mouth once daily. - cgugifun-waba-tvoyj-oreg -capry 100 mg-150 mg- 50 mg-150 mg cap Take by mouth once daily. - Zinc Acetate, Oral, 50 mg (zinc) cap Take by mouth once daily. - vitamin b complex capsule Take 1 capsule by mouth once daily. - albuterol HFA (PROVENTIL HFA, VENTOLIN HFA) 90 mcg/actuation inhaler Inhale 2 Puffs as instructed four times a day as needed. - gabapentin (NEURONTIN) 600 mg tablet Take 1 tablet by mouth three times a day for 180 days. - traZODone (DESYREL) 150 (more content not included)... Normal [facility] CNOVon 09-01-2024 CNOV Office Visit (ORTHWS ) -------- LYSSAMARQUITA Sukhdeep ([id number]) 1975 F Date Time Provider Department 09/01/24 3:00 PM LISA RODRÍGUEZ During your visit today, we recorded the following information about you: Lisa Rodríguez PA-C 09/01/2024 3:10 PM Signed Large Joint Arthro/Inj: L knee joint 09/01/2024 3:10 PM The procedure site was prepped in the usual sterile fashion. Site: L knee joint Medications: 6 mg betamethasone acetate-betamethasone sodium phosphate 6 mg/mL Anesthetics: 5 mL lidocaine (PF) 10 mg/mL (1 %) Outcome: Tolerated well, no immediate complications Post-injection instructions were reviewed with the patient and the patient voiced understanding of these instructions. Informed Consent Consent Obtained: Verbal [place] Protocol A moment to CARE was completed. SIGN IN Sign in communication not applicable due to emergent procedure. Personnel directly involved with the procedure wore the appropriate PPE. Special Equipment: N/A Patient/Surrogate Stated/Verified: Patient name, Date of , Relevant allergies and Intended procedure TIME OUT Relevant labs, photos, and/or imaging studies have been reviewed. Consent documented and matches the intended procedure. Correct side/site marked and visible. Medications required for procedure verified. No fire risk assessment and interventions applicable. No implant(s) inserted. SIGN OUT No specimen collected. All instruments, equipment, possible retained foreign bodies accounted for. Allergies As of Date: 09/01/2024 Noted Allergy Reaction BENADRYL (DIPHENHYDRAMINE) 02/13/2022 5 - Intolerance 14 - Other: See Comments Comments: Jittery, shaking, skin feels like its crawling, hyper LYRICA (PREGABALIN) 08/03/2010 14 - Other: See Comments Comments: Elevates blood pressure SEASONAL ALLERGIES 08/03/2010 14 - Other: See Comments Comments: Mostly Pollen-stuffy nose,headache SULFA (SULFONAMIDE ANTIBIOTICS) 08/03/2010 4 - Hives Date Reviewed: 09/01/2024 Reviewed by: Rhona Tucker LPN - Fully Assessed Reason for Visit: Knee Pain [132] Injections [199] Established Patient [175] Swelling [205] Primary Visit Diagnosis:Acute pain of left knee [M25.562] Order(s):Large Joint Arthro/Inj: L knee joint [UWD869] Order #: [id number] [] betamethasone acetate-betamethasone sodium phosphate 6 mg injection (CELESTONE)Disp: Rfl: [] lidocaine (PF) 10 mg/mL (1 %) 5 mL injection (XYLOCAINE)Disp: Rfl: Prescriptions as of 09/01/2024 - MAGNESIUM ORAL Take by mouth. - ASHWAGANDHA EXTRACT ORAL Take by mouth once daily. - jexdijzl-kzkk-advav-oreg -capry 100 mg-150 mg- 50 mg-150 mg cap Take by mouth once daily. - Zinc Acetate, Oral, 50 mg (zinc) cap Take by mouth once daily. - vitamin b complex capsule Take 1 capsule by mouth once daily. - albuterol HFA (PROVENTIL HFA, VENTOLIN HFA) 90 mcg/actuation inhaler Inhale 2 Puffs as instructed four times a day as needed. - gabapentin (NEURONTIN) 600 mg tablet Take 1 tablet by mouth three times a day for 180 days. - traZODone (DESYREL) 150 mg tablet Take 1 tablet by mouth daily at bedtime. - famotidine (PEPCID) 20 mg tablet Take 1 tablet by mouth two times a day as needed. - fluticasone-salmeterol (ADVAIR DISKUS) 250-50 mcg/dose inhaler Inhale 1 Puff as instructed two times a day. Rinse and gargle mouth after use with water. Problem List As Of Date 09/01/2024 Noted Resolved Migraine without aura, intractable, without sta*02/20/2019 Obesity, Class II, BMI 35-39.9 [E66.812] 02/20/2019 Anxiety with depression [F41.8] 02/20/2019 Mild intermittent asthma without complication [*01/12/2020 ALISHA (obstructive sleep apnea) [G47.33] 08/31/2020 Obstructive sleep apnea (adult) (pediatric) [G4*04/11/2021 Vitamin D deficiency [E55.9] 02/05/2023 Diagnosed: 02/05/2023 NAFLD (nonalcoholic fatty liver disease) [K76.0]02/05/2023 Morbid obesity (HCC) [E66.01] 02/05/2023 History of lumbar fusion [Z98.1] 05/02/2023 Diagnosed: 05/02/2023 Polyp of gallbladder [K82.4] 09/15/2022 Diagnosed: 05/02/2023 Von Willebrand disease (HCC) [D68.00] 05/02/2023 Diagnosed: 05/02/2023 Obesity, Class III, BMI >= 40 [E66.813] 05/11/2023 Acute pain of left knee [M25.562] 05/26/2024 Prescriptions ordered this encounter Disp Refills Start End BETAMETHASONE ACETATE AND SODIUM ANCELMO* 09/01/2024 09/01/2024 Route: Inj-ORTHO LIDOCAINE (PF) 10 MG/ML (1 %) INJECT* 09/01/2024 09/01/2024 Route: Inj-ORTHO Encounter Status:Closed by LISA RODRÍGUEZ on 09/01/24 [facility] Large Joint Arthro/Inj: L kn ee jointon 09-01-2024 Lisa Rodríguez PA -C 09/01/2024 3:10 PM Large Joint Arthro/Inj: L knee joint 09/01/2024 3:10 PM The procedure site was prepped in the usual sterile fashion. Site: L knee joint Medications: 6 mg betamethasone acetate-betamethasone sodium phosphate 6 mg/mL Anesthetics: 5 mL lidocaine (PF) 10 mg/mL (1 %) Outcome: Tolerated well, no immediate complications Post-injection instructions were reviewed with the patient and the patient voiced understanding of these instructions. Informed Consent Consent Obtained: Verbal [place] Protocol A moment to CARE was completed. SIGN IN Sign in communication not applicable due to emergent procedure. Personnel directly involved with the procedure wore the appropriate PPE. Special Equipment: N/A Patient/Surrogate Stated/Verified: Patient name, Date of , Relevant allergies and Intended procedure TIME OUT Relevant labs, photos, and/or imaging studies have been reviewed. Consent documented and matches the intended procedure. Correct side/site marked and visible. Medications required for procedure verified. No fire risk assessment and interventions applicable. No implant(s) inserted. SIGN OUT No specimen collected. All instruments, equipment, possible retained foreign bodies accounted for. [facility] CNOVon 07-08-2024 CNOV Office Visit (DERMSO ) -------- MARQUITA OMALLEY I ([id number]) 1975 F Date Time Provider Department 07/08/24 1:50 PM JASON SCRUGGS DERMSO During your visit today, we recorded the following information about you: Jason Scruggs MD 07/13/2024 5:24 PM Signed Subjective Marquita Omalley is a 48-year-old W female presenting for evaluation of excess abdominal skin following significant weight loss post-gastric sleeve surgery. She underwent gastric sleeve surgery on 05/11/2023 and has since lost 90 lbs. She is seeking a referral to a plastic surgeon for the removal of excess abdominal skin. She reports being informed that insurance coverage for the procedure may require documentation of a medical necessity, such as skin breakdown. She denies any current skin breakdown and attributes this to her meticulous efforts to keep the area clean and dry. Marquita also mentions having diastasis recti, which she believes contributes to the appearance of her abdomen. She has been advised against performing crunches due to the risk of exacerbating the diastasis. She engages in regular walking for exercise but has not found yoga to be suitable for her. She expresses a desire to explore other forms of exercise, such as swimming, but notes that the nearest indoor pool is 40 minutes away from her residence in [place]. ROS: Constitutional: (+) weight loss Musculoskeletal: (+) diastasis Skin: (-) skin breakdown Objective Last menstrual period 01/03/2019. General: pleasant overweight WF in no acute distress. Abd: Mild pannus observed. No skin breakdown observed along flank and lower abdomen. Diastasis recti observed ASSESSMENT/PLAN: 1. Rash and nonspecific skin eruption (R21) 2. Intertrigo (L30.4) - No evidence of skin breakdown or intertrigo observed on examination. - Advised patient to continue maintaining good hygiene and keeping the skin clean and dry. 3. 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 - Discussed potential referral to a plastic surgeon for excess skin removal; however, no medical necessity for insurance coverage observed at this time. 4. Obesity, Class I, BMI 30.0-34.9 (see actual BMI) (E66.811) - Encouraged patient to engage in muscle toning exercises to improve abdominal wall strength and appearance. - Recommended consulting a personal fitness trainer for tailored exercise regimen. - Discussed potential benefits of swimming as a low-impact exercise option; advised patient to explore local indoor pool facilities. Jason Scruggs MD Family Med/dermatology consistent with [facility]?s Notice of Privacy Practices. Referring Provider: ELANA NOEL [[id number]] Allergies As of Date: 07/08/2024 Noted Allergy Reaction BENADRYL (DIPHENHYDRAMINE) 02/13/2022 5 - Intolerance 14 - Other: See Comments Comments: Jittery, shaking, skin feels like its crawling, hyper LYRICA (PREGABALIN) 08/03/2010 14 - Other: See Comments Comments: Elevates blood pressure SEASONAL ALLERGIES 08/03/2010 14 - Other: See Comments Comments: Mostly Pollen-stuffy nose,headache SULFA (SULFONAMIDE ANTIBIOTICS) 08/03/2010 4 - Hives Date Reviewed: 07/08/2024 Reviewed by: Liliana Gandhi LPN - Fully Assessed Reason for Visit: Localized Skin Check [8037] Visit Diagnoses:Rash and nonspecific skin eruption [R21] Intertrigo [L30.4] S/P laparoscopic sleeve gastrectomy [Z98.84] Obesity, Class I, BMI 30.0-34.9 (see actual BMI) [E66.811] Order(s):CONSULT TO PLASTIC SURGERY [9002] Order #: [id number]: 1 Prescriptions as of 07/13/2024 - MAGNESIUM ORAL Take by mouth. - ASHWAGANDHA EXTRACT ORAL Take by mouth once daily. - jkokdnwy-iluj-leloi-oreg -capry 100 mg-150 mg- 50 mg-150 mg cap Take by mouth once daily. - Zinc Acetate, Oral, 50 mg (zinc) cap Take by mouth once daily. - vitamin b complex capsule Take 1 capsule by mouth once daily. - albuterol HFA (PROVENTIL HFA, VENTOLIN HFA) 90 mcg/actuation inhaler Inhale 2 Puffs as instructed four times a day as needed. - gabapentin (NEURONTIN) 600 mg tablet Take 1 tablet by mouth three times a day for 180 days. - traZODone (DESYREL) 150 mg tablet Take 1 tablet by mouth daily at bedtime. - famotidine (PEPCID) 20 mg tablet Take 1 tablet by mouth two times a day as needed. - fluticasone-salmeterol (ADVAIR DISKUS) 250-50 mcg/dose inhaler Inhale 1 Puff as instructed two times a day. Rinse and gargle mouth after use with water. Problem List As Of Date 07/08/2024 Noted Resolved Migraine without aura, intractable, without sta*02/20/2019 Obesity, Class II, BMI 35-39.9 [E66.812] 02/20/2019 Anxiety with depression [F41.8] 02/20/2019 Mild intermittent asthma without complication [*01/12/2020 ALISHA (obstructive sleep apnea) [G47.33] 08/31/2020 Obstructive sleep (more content not included)... Normal [facility] Gastroenterology Visit Repor ton 06-27-2024 Gastroenterology Visit Report [facility] Gastroenterology [address] [place] [address] OFFICE VISIT Date of Service: 06/27/24 MR#: [id number] Acct: [id number] Name: MARQUITA OMALLEY Sukhdeep Rep #: [id number] : 1975 Provider: Thomas Andrew DO Age/Sex: 48/F Location: [facility] Status: Signed Intake Vital Signs 07/24/23 09:31 06/07/24 11:09 Height 5 ft 5 in 5 ft 5 in Intake Visit Reasons: 6 M FU Chief Complaint: post hyster bleeding Allergies pregabalin (From Lyrica) Allergy (Verified 06/07/24 11:08) high bp Sulfa (Sulfonamide Antibiotics) Allergy (Verified 06/07/24 11:08) Hives diphenhydramine (From Benadryl) Adverse Reaction (Mild, Verified 06/07/24 11:09) SKIN adhesive tape (plastic tape) Adverse Reaction (Verified 06/07/24 11:08) Other Medications ???Medication ???Instructions ???Recorded ???Confirmed ???Type albuterol sulfate 90 mcg/actuation 1 - 2 puff inhalation Q6H PRN AR N 01/16/19 01/04/24 History aerosol inhaler Sob /Or Wheezing trazodone 50 mg tablet 25 - 150 mg PO QHS sleep 01/16/19 01/04/24 History lorazepam 0.5 mg tablet 0.5 mg PO BID PRN PRN Anxiety 08/07/0401/04/24 History famotidine 20 mg tablet 20 mg PO BID 01/04/24 01/04/24 His tory meclizine 25 mg tablet 25 mg PO TID PRN dizziness 3 days 06/07/24 Rx #9 tabs prednisone 20 mg tablet 20 mg PO QDAY #7 tabs 06/27/24 Rx pseudoephedrine HCl 120 mg 120 mg PO Q12H 06/27/24 06/27/24 H istory tablet,extended release (Sudafed 12 Hour) scopolamine base 1 mg over 3 days 1 patch transdermal Q3D #4 ea 06/27/24 Rx transdermal patch PFSH Medical History (Updated 06/27/24 @ 08:[address] Guzman Friend, DO) Elevated LFTs Seasonal allergies Wears glasses Depression Anxiety Alcohol use Low iron Excessive bleeding Migraine headache Loss of consciousness Gastric reflux Former smoker Obstructive sleep apnea CPAP (continuous positive airway pressure) dependence Asthma History of wrist fracture Back pain Surgical History H/O wrist surgery History of hysterectomy History of tubal ligation History of tonsillectomy History of wisdom tooth extraction History of discectomy History of bilateral breast reduction surgery History of appendectomy Family History Father Hypertension Mother Migraines Sister Migraines Grandmother Diabetes Social History household members: children housing: house number of children: 3 current occupational status: employed 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 PCP OV ? Biochemical 2.2022 CBC, CMP, t.bili, hepatitis ? AST G938-JAA H171-AP 91, plt 227 Fib4 2.38 ? US RUQ 2.3.23 fatty liver infiltration; 4mm gallbladder polyp. *BGI established 5.5.23 no history of IV drug use, hepatitis infection, blood transfusion, anti- arrhythmic medication. FH without liver disease. She is obese and is undergoing workup for gastric sleeve; she is borderline DMII. Biochemical CBC, CMP, LDH, haptoglobin, ceruloplasmin, copper, ammonia, AFP, ARMEN, A1c, lipid, coag, USAMA comp, AMA, hepatitis without pertinent abnormality. ESR H35, CRP H13.10, AST P993-ITC H186-AP 93, Vit D 1,25 H84.4, cANCA H1:20, ASM H27, ferritin H333 Contact 5.10.23 repeat labs in approximately four months. Work on weight loss and dietary management until then. No medications changes at this time. Will call with elastography results. ? US RUQ and Elastography .06.05 hepatic measurement 17.4cm with fatty infiltration, stiffness 6.8 kPa; gallbladder polyp [id number] adherent to gallbladder wall Contact .01.03 with US/elastography results. Reports weight loss 15lbs. She will repeat bloodwork just prior to next appointment. OV 9.23 reports she is doing well at this time without concerns to address. ? Biochemical ESR, LFT, ASM, ANCA, ferritin WNL. ? CRP H9.78 Contact 02.02.23 with results; very appreciative OV 3.12.24- Pt reports since last visit she had gastric sleeve (more content not included)... Normal [facility] CNOVon 06-11-2024 CNOV Office Visit (LESLIEWS ) -------- MARQUITA OMALLEY I ([id number]) 1975 F Date Time Provider Department 06/11/24 9:20 AM BRIGETTE MARTIN During your visit today, we recorded the following information about you: Pulse Respiration Blood pressure 71/minute 16/minute 128/84 Brigette Martin APRN.CAREER SERVICES OFFICER 06/11/2024 6:05 PM Signed This is a 48 year old female who presents today with: Patient presents with: ER F/U: [facility] ER 06/07 dx:vertigo; meclizine not working; using flonase and antihistamines; has been doing regina at home without relief HISTORY OF PRESENT ILLNESS: Marquita Omalley is a 48 year old female. Patient presents with: ER F/U: [facility] ER 06/07 dx:vertigo; meclizine not working; using flonase and antihistamines; has been doing regina at home without relief Pt presents today for ER follow-up. Was in the ER on 06/07. Refers she was having extreme dizziness. She was working at her computer and had a sudden onset of dizziness. BP was 98/50. [place] laid down and she felt like she was drunk. When she sat up, everything started spinning. Checked sugar, and it was okay. Vomited X 1. She had a headache for 5 days prior to symptoms. Taking tylenol for headache. Given a dose of meclizine in the ER and reports that it did not do anything. In the emergency room, she was given IV fluids, meclizine, and Zofran. Her CBC showed no leukocytosis. Hemoglobin was 14.3. Platelet count was 219. Patient's sodium was 138. Potassium was 3.8 her creatinine was normal at 0.6. Her urinalysis showed no evidence of infection. CT of her head and brain without contrast showed no acute findings. Chest x-ray showed no acute cardiopulmonary processes. Revealed sinus bradycardia. Had PT yesterday. Advised that could get vestibular therapy. Symptoms are improved from onset. However a little worse today as compared to the last could of days. Did not do eply this morning. Continues with headache. PAST MEDICAL HISTORY: PAST MEDICAL HISTORY Diagnosis Date Anxiety Arthritis Chest pain Depression Ear infection Migraines Obesity, Class II, BMI 35-39.9 02/20/2019 PTSD (post-traumatic stress disorder) Sciatica UTI (lower urinary tract infection) PAST SURGICAL HISTORY Procedure Laterality Date ABDOMINAL SURGERY HX APPENDECTOMY 1982 APPENDECTOMY HX BACK SURGERY HX BREAST SURGERY HX COLONOSCOPY SCREENING 02/13/2022 10 year next colonoscopy 2031 COLPOPEXY VAGINAL INTRAPERITONEAL APPROACH 01/23/2019 uterosacral ligament fixation FRACTURE SURGERY LIG/TRNSXJ FLP TUBE ABDL/VAG APPR UNI/BI 06/2007 MAMMO MAMMOGRAM 07/20/2010 OTHER lumbar spinal fusion L5-S1 PAST SURGICAL HISTORY OF 09/2008 Micro Disectomy L5S1 PAST SURGICAL HISTORY OF Left 2013 Left wrist surgery POST COLPORRHAPHY RECTOCELE W/WO PERINEORRHAPHY 01/23/2019 posterior repair REDUCTION OF LARGE BREAST 09/2006 Bilateral SKIN BIOPSY HX SLING OPER STRES INCONTINENCE 01/23/2019 TVT exact TONSILLECTOMY HX VAGINAL HYSTERECTOMY VAGINAL HYSTERECTOMY UTERUS 250 GM/< 01/23/2019 tubes and ovaries remain ALLERGIES Benadryl [Diphenhydramine], Lyrica [Pregabalin], Seasonal Allergies, and Sulfa (Sulfonamide Antibiotics) MEDICATIONS Current Outpatient Medications Medication Sig MAGNESIUM ORAL Take by mouth. ASHWAGANDHA EXTRACT ORAL Take by mouth once daily. gafsjmhn-pcsv-fawic-oreg -capry 100 mg-150 mg- 50 mg-150 mg cap Take by mouth once daily. Zinc Acetate, Oral, 50 mg (zinc) cap Take by mouth once daily. vitamin b complex capsule Take 1 capsule by mouth once daily. albuterol HFA (PROVENTIL HFA, VENTOLIN HFA) 90 mcg/actuation inhaler Inhale 2 Puffs as instructed four times a day as needed. gabapentin (NEURONTIN) 600 mg tablet Take 1 tablet by mouth three times a day for 180 days. traZODone (DESYREL) 150 mg tablet Take 1 tablet by mouth daily at bedtime. famotidine (PEPCID) 20 mg tablet Take 1 tablet by mouth two times a day as needed. fluticasone-salmeterol (ADVAIR DISKUS) 250-50 mcg/dose inhaler Inhale 1 Puff as instructed two times a day. Rinse and gargle mouth after use with water. No current facility-administered medications for this visit. FAMILY HISTORY Problem Relation Age of Onset Allergies Mother Headache Mother Obesity Mother Hypertension Father Heart Father Obesity Sister Allergies Sister Headache Sister Diabetes Maternal Grandmother Emphysema Maternal Grandmother Breast Cancer Maternal Grandmother Emphysema Maternal Grandfather Alcohol/Drug Paternal Grandfather Headache Daughter other (Pneumonia) Daughter Headache Daughter Headache Son other (RSV) Son Psychiatry Maternal Uncle Suicide Social History Tobacco Use Smoking status: Former Current packs/day: 0.00 Types: Cigarettes Quit date: 08/03/2005 Years since quittin.8 Smokeless tobacco: Never Vaping Use Vaping status: (more content not included)... Normal [facility] CNTHERAPYon 06-10-2024 CNTHERAPY OT/PT/Speech Visit (PTWS) -------- MARQUITA OMALLEY I ([id number]) 1975 F Date Time Provider Department 06/10/24 8:15 AM HEATHER DE LEON PTANGELA Date Time Provider Department Center 06/10/2024 8:15 AM [id number] DE LEON PTWS [place] [facility] Reason for Visit: Physical Therapy [503] Primary Visit Diagnosis:Acute pain of left knee [M25.562] Allergies As of Date: 06/10/2024 Noted Allergy Reaction BENADRYL (DIPHENHYDRAMINE) 02/13/2022 5 - Intolerance 14 - Other: See Comments Comments: Jittery, shaking, skin feels like its crawling, hyper LYRICA (PREGABALIN) 08/03/2010 14 - Other: See Comments Comments: Elevates blood pressure SEASONAL ALLERGIES 08/03/2010 14 - Other: See Comments Comments: Mostly Pollen-stuffy nose,headache SULFA (SULFONAMIDE ANTIBIOTICS) 08/03/2010 4 - Hives Date Reviewed: 06/07/2024 Reviewed by: Rhianna Vaughan MA - Fully Assessed Prescriptions as of 06/10/2024 - MAGNESIUM ORAL Take by mouth. - ASHWAGANDHA EXTRACT ORAL Take by mouth once daily. - cykqpuae-orly-kyzlu-oreg -capry 100 mg-150 mg- 50 mg-150 mg cap Take by mouth once daily. - Zinc Acetate, Oral, 50 mg (zinc) cap Take by mouth once daily. - vitamin b complex capsule Take 1 capsule by mouth once daily. - albuterol HFA (PROVENTIL HFA, VENTOLIN HFA) 90 mcg/actuation inhaler Inhale 2 Puffs as instructed four times a day as needed. - gabapentin (NEURONTIN) 600 mg tablet Take 1 tablet by mouth three times a day for 180 days. - traZODone (DESYREL) 150 mg tablet Take 1 tablet by mouth daily at bedtime. - famotidine (PEPCID) 20 mg tablet Take 1 tablet by mouth two times a day as needed. - fluticasone-salmeterol (ADVAIR DISKUS) 250-50 mcg/dose inhaler Inhale 1 Puff as instructed two times a day. Rinse and gargle mouth after use with water. Normal [facility] 12 Lead EKGon 06-07-2024 12 Lead EKG [facility] Cardiovascular Services [address] [place] [address] 12 Lead EKG 06/07/24 1219 MR#: [id number] Acct: [id number] Name: MARQUITA OMALLEY I Rep #: [id number] : 1975 48 From: Tam Copeland MD Attending Dr: Status: DEP ER Ordering Dr: Ava Conde Date: 06/07/24 Location: ED Sex: F C Admitted: Test Reason : Blood Pressure : */* mmHG Vent. Rate : 56 BPM Atrial Rate : 56 BPM P-R Int : 136 ms QRS Dur : 76 ms QT Int : 404 ms P-R-T Axes : 20 61 34 degrees QTcB Int : 389 ms Sinus bradycardia Otherwise normal ECG Confirmed by ZOILA CARR, ROSCOE ([id number]), international editorial producer ADEN STILES ([id number]) on 06/10/2024 6:11:24 AM Referred By: Confirmed By: ROSCOE COPELAND MD 06/10/24 0611 Date Tam Copeland MD CC: DONNIE Martin; Dr. Dandre Laird DO; LASHON Lora Signed Normal [facility] Basic Metabolic Profile (BMP )on 06-07-2024 BUN/CRE 17.5 RATIO Normal 10-20 [facility] Comment on above: Performed By: #### L 500.2500, L100.0100 #### [facility] [address] [place], [address] CA,Total 9.5 mg/dL Normal 8.5-10.1 [facility] Comment on above: Performed By: #### L 500.2500, L100.0100 #### [facility] [address] [place], [address] Chloride [Moles/Vol] 107 mmol/L Normal 98-107 [facility] Comment on above: Performed By: #### L 500.2500, L100.0100 #### [facility] [address] [place], [address] CO2 [Moles/Vol] 29.0 mmol/L Normal 21.0-32.0 [facility] Comment on above: Performed By: #### L 500.2500, L100.0100 #### [facility] [address] [place], [address] Creatinine [Mass/Vol] 0.63 mg/dL Normal 0.55-1.02 [facility] Comment on above: Result Comment: The validity of the calculated GFR GFRAA in patients over 70 years has not been determined. Clinical correlation is essential. Performed By: #### L 500.2500, L100.0100 #### [facility] [address] [place], [address] ECRCL 115.56 ml/min Normal [facility] Comment on above: Performed By: #### L 500.2500, L100.0100 #### [facility] [address] [place], [address] EST GFR - AA 129 mL/min Normal >60 [facility] Comment on above: Result Comment: Afri can Tajik GFR Calc Performed By: #### L 500.2500, L100.0100 #### [facility] [address] [place], [address] GAP 3 Low 5-15 [facility] Comment on above: Performed By: #### L 500.2500, L100.0100 #### [facility] [address] [place], [address] GFR/1.73 sq M.predicted among non-blacks MDRD (S/P/Bld) [Vol rate/Area] 107 mL/min/{1.73_m2} Normal >60 [facility] Comment on above: Result Comment: Non- GFR Calc Performed By: #### L 500.2500, L100.0100 #### [facility] [address] [place], [address] Glucose [Mass/Vol] 83 mg/dL Normal 74-106 [facility] Comment on above: Performed By: #### L 500.2500, L100.0100 #### [facility] [address] [place], [address] Potassium [Moles/Vol] 3.8 mmol/L Normal 3.5-5.1 [facility] Comment on above: Performed By: #### L 500.2500, L100.0100 #### [facility] [address] [place], [address] Sodium [Moles/Vol] 138 mmol/L Normal 136-145 [facility] Comment on above: Performed By: #### L 500.2500, L100.0100 #### [facility] [address] [place], [address] Urea nitrogen [Mass/Vol] 11 mg/dL Normal 7-18 [facility] Comment on above: Performed By: #### L 500.2500, L100.0100 #### [facility] [address] [place], [address] Brain/Head without Contrasto n 06-07-2024 Brain/Head without Contrast [facility] Imaging Services [address] [place] [address] Brain/Head without Contrast MR#: [id number] Acct: [id number] Name: MARQUITA OMALLEY I Rep #: [id number] : 1975 F 48 From: Aviva Herbert MD PCP: DONNIE Pedraza Status: REG ER Study: Brain/Head without Contrast Date of Exam: 05/15 10/05 Exam# [id number] Ordering Dr: Ava Conde [id number] EXAM: CT HEAD WITHOUT INTRAVENOUS CONTRAST CLINICAL INDICATION: None provided. TECHNIQUE: Multiple axial images were obtained of the head without intravenous contrast. This CT exam was performed using one or more of the following dose reduction techniques: automated exposure control, adjustment of the mA and/or kV according to patient size, and/or use of iterative reconstruction technique. RADIATION DOSE: CTDIvol = 44.99 mGy, DLP = 796.11 mGy-cm COMPARISON: May 2015. History: headache FINDINGS: BRAIN AND EXTRA-AXIAL SPACES: Unremarkable. No intra- or extra-axial hemorrhage. No evidence of acute infarct. No intracranial mass or mass effect. There is preservation of the cazares/white matter interface. Posterior fossa structures are unremarkable. Ventricles are appropriate for age. No hydrocephalus. Basal cisterns are patent. BONES/JOINTS: Unremarkable. No discrete lytic or blastic abnormalities. SINUSES: Mild right nasal septal deviation and bilateral betsy bullosa. The completely included paranasal sinuses are well aerated with the exception of small mucous retention cyst noted in the left sphenoid sinus. MASTOID AIR CELLS: Unremarkable. Clear. ORBITS: Visualized globes, extraocular muscles, optic nerves and retrobulbar fat appear unremarkable. CT/Brain/Head without Contrast IMPRESSION: No acute findings in the head/brain. Electronically Signed: Aviva Herbert MD at 13:39 EST , CC: DONNIE Martin; LASHON Lora Packer Fuser: Signed Normal [facility] CBC W/Diff, Automatedon 01- Absolute Lymph 2.08 X10 3/uL Normal 0.83-4.51 [facility] Comment on above: Performed By: #### L 500.2500, L100.0100 #### [facility] [address] [place], [address] Absolute Neut 5.1 X10 3/uL Normal 2.0-7.7 [facility] Comment on above: Performed By: #### L 500.2500, L100.0100 #### [facility] [address] [place], [address] Basophils/100 WBC (Bld) 0.5 % Normal 0-1 [facility] Comment on above: Performed By: #### L 500.2500, L100.0100 #### [facility] [address] [place], [address] Eosinophils/100 WBC (Bld) 0.8 % Normal 0-5 [facility] Comment on above: Performed By: #### L 500.2500, L100.0100 #### [facility] [address] [place], [address] Erythrocyte distribution width (RBC) [Ratio] 13.0 % Normal 11.6-14.6 [facility] Comment on above: Performed By: #### L 500.2500, L100.0100 #### [facility] [address] [place], [address] Hematocrit (Bld) [Volume fraction] 42.8 % Normal 37-47 [facility] Comment on above: Performed By: #### L 500.2500, L100.0100 #### [facility] [address] [place], [address] Hemoglobin (Bld) [Mass/Vol] 14.3 g/dL Normal 12.0-15.0 [facility] Comment on above: Performed By: #### L 500.2500, L100.0100 #### [facility] [address] [place], [address] IG% 0.400 Normal 0.0-0.9 [facility] Comment on above: Result Comment: IG% - Immature Granulocytes (promyelocytes, myelocytes and metamyelocytes) > 1% indicates that a LEFT SHIFT is Present. Performed By: #### L 500.2500, L100.0100 #### [facility] [address] [place], [address] Lymphocytes/100 WBC (Bld) 26.6 % Normal 19-41 [facility] Comment on above: Performed By: #### L 500.2500, L100.0100 #### [facility] [address] [place], [address] MCH (RBC) [Entitic mass] 29.9 pg Normal 27.0-32.0 [facility] Comment on above: Performed By: #### L 500.2500, L100.0100 #### [facility] [address] [place], [address] MCHC (RBC) [Mass/Vol] 33.4 g/dL Normal 32-36 [facility] Comment on above: Performed By: #### L 500.2500, L100.0100 #### [facility] [address] [place], [address] MCV (RBC) [Entitic vol] 89.5 fL Normal 81-99 [facility] Comment on above: Performed By: #### L 500.2500, L100.0100 #### [facility] [address] [place], [address] Monocytes/100 WBC (Bld) 6.0 % Normal 0-10 [facility] Comment on above: Performed By: #### L 500.2500, L100.0100 #### [facility] [address] [place], [address] Neutrophils/100 WBC (Bld) 65.7 % Normal 47-70 [facility] Comment on above: Performed By: #### L 500.2500, L100.0100 #### [facility] [address] [place], [address] Nucleated RBC (Bld) [#/Vol] 0 10*3/uL Normal 0-5 [facility] Comment on above: Performed By: #### L 500.2500, L100.0100 #### [facility] [address] [place], [address] Platelet mean volume (Bld) [Entitic vol] 10.1 fL Normal 6.2-12.0 [facility] Comment on above: Performed By: #### L 500.2500, L100.0100 #### [facility] [address] [place], [address] Platelets (Bld) [#/Vol] 219 10*3/uL Normal 150-450 [facility] Comment on above: Performed By: #### L 500.2500, L100.0100 #### [facility] [address] [place], [address] RBC (Bld) [#/Vol] 4.78 10*6/uL Normal 4.2-5.4 [facility] Comment on above: Performed By: #### L 500.2500, L100.0100 #### [facility] [address] [place], [address] RDW SD 42.5 fl Normal 35.1-43.9 [facility] Comment on above: Performed By: #### L 500.2500, L100.0100 #### [facility] [address] [place], [address] WBC (Bld) [#/Vol] 7.8 10*3/uL Normal 4.4-11.0 [facility] Comment on above: Performed By: #### L 500.2500, L100.0100 #### [facility] [place], [address] CNOVon 06-07-2024 CNOV Office Visit (UCWSTR ) -------- LYSSAMARQUITA I ([id number]) 1975 F Date Time Provider Department 06/07/24 10:45 AM HILLARY WARD [facility] During your visit today, we recorded the following information about you: Temperature Pulse Respiration Blood pressure 97.9 degrees 80/minute 16/minute 128/74 Weight 84.3 kg Hillary Ward APRN.CAREER SERVICES OFFICER 06/07/2024 11:08 AM Signed Patient came in with complaints of severe dizziness. Patient says it started yesterday. Patient says is not getting any better. Says this is never happened before. Patient says she can hardly even walk without feeling like she is going to fall. Patient denies any other symptoms. At this time patient is being referred to the emergency room for an evaluation. Patient said at home her blood pressure was extremely low. Blood pressure was normal here. Did states she could be dehydrated. Patient agreeable will take her self. Patient wants to take her so she does not want to squad called. Allergies As of Date: 06/07/2024 Noted Allergy Reaction BENADRYL (DIPHENHYDRAMINE) 02/13/2022 5 - Intolerance 14 - Other: See Comments Comments: Jittery, shaking, skin feels like its crawling, hyper LYRICA (PREGABALIN) 08/03/2010 14 - Other: See Comments Comments: Elevates blood pressure SEASONAL ALLERGIES 08/03/2010 14 - Other: See Comments Comments: Mostly Pollen-stuffy nose,headache SULFA (SULFONAMIDE ANTIBIOTICS) 08/03/2010 4 - Hives Date Reviewed: 06/07/2024 Reviewed by: Rhianna Vaughan MA - Fully Assessed Reason for Visit: Dizziness [36] Cmt: x 1 day, bp dropped(95/50), ? ear problem Primary Visit Diagnosis:Dizziness [R42] Prescriptions as of 06/07/2024 - MAGNESIUM ORAL Take by mouth. - ASHWAGANDHA EXTRACT ORAL Take by mouth once daily. - ysrlhvse-vjtc-tlilw-oreg -capry 100 mg-150 mg- 50 mg-150 mg cap Take by mouth once daily. - Zinc Acetate, Oral, 50 mg (zinc) cap Take by mouth once daily. - vitamin b complex capsule Take 1 capsule by mouth once daily. - albuterol HFA (PROVENTIL HFA, VENTOLIN HFA) 90 mcg/actuation inhaler Inhale 2 Puffs as instructed four times a day as needed. - gabapentin (NEURONTIN) 600 mg tablet Take 1 tablet by mouth three times a day for 180 days. - traZODone (DESYREL) 150 mg tablet Take 1 tablet by mouth daily at bedtime. - famotidine (PEPCID) 20 mg tablet Take 1 tablet by mouth two times a day as needed. - fluticasone-salmeterol (ADVAIR DISKUS) 250-50 mcg/dose inhaler Inhale 1 Puff as instructed two times a day. Rinse and gargle mouth after use with water. Problem List As Of Date 06/07/2024 Noted Resolved Migraine without aura, intractable, without sta*02/20/2019 Obesity, Class II, BMI 35-39.9 [E66.812] 02/20/2019 Anxiety with depression [F41.8] 02/20/2019 Mild intermittent asthma without complication [*01/12/2020 ALISHA (obstructive sleep apnea) [G47.33] 08/31/2020 Obstructive sleep apnea (adult) (pediatric) [G4*04/11/2021 Vitamin D deficiency [E55.9] 02/05/2023 Diagnosed: 02/05/2023 NAFLD (nonalcoholic fatty liver disease) [K76.0]02/05/2023 Morbid obesity (HCC) [E66.01] 02/05/2023 History of lumbar fusion [Z98.1] 05/02/2023 Diagnosed: 05/02/2023 Polyp of gallbladder [K82.4] 09/15/2022 Diagnosed: 05/02/2023 Von Willebrand disease (HCC) [D68.00] 05/02/2023 Diagnosed: 05/02/2023 Obesity, Class III, BMI >= 40 [E66.01] 05/11/2023 Acute pain of left knee [M25.562] 05/26/2024 Encounter Status:Closed by HILLARY WARD on 06/07/24 Normal [facility] Chest 1 View (Portable)on [facility] (Port[facility]) [facility] Imaging Services [address] [facility] [place] [address] Chest 1 View (Portable) MR#: [id number] Acct: [id number] Name: MARQUITA OMALLEY I Rep #: [id number] : 1975 F 48 From: Aviva Herbert MD PCP: DONNIE Pedraza Status: REG ER Study: Chest 1 View (Portable) Date of Exam: 06/07/24 Exam# [id number] Ordering Dr: Ava Conde [id number] EXAM: XR CHEST, 1 VIEW CLINICAL INDICATION: dyspnea TECHNIQUE: Frontal view of the chest. COMPARISON: May 18, 2014, earlier exams to April 29, 2004. FINDINGS: LUNGS AND PLEURAL SPACES: Unremarkable. No consolidation or edema. No pneumothorax. No effusion. HEART: Unremarkable. Cardiac silhouette not enlarged. MEDIASTINUM: Central airways and mediastinal contour are unremarkable. BONES/JOINTS: Unremarkable. No acute fracture. SOFT TISSUES: Unremarkable. RAD/Chest 1 View (Portable) IMPRESSION: No radiographic evidence of acute cardiopulmonary disease. Electronically Signed: Aviva Herbert MD at 13:42 EST , CC: DONNIE Martin; LASHON Lora Packer Fuser: Signed Normal [facility] Emergency Department Summary on 06-07-2024 Emergency Department Summary [facility] Medical Records Department [address] [place] [address] Emergency Department Summary 06/07/24 MR#: [id number] Acct: [id number] Name: MARQUITA OMALLEY I Rep #: [id number] : 1975 48 From: Ava OATES PCP: DONNIE Pedraza Status:DEP ER Location: ED Patient was seen and examined with physician parts room assistant Ava All components of the history and physical confirmed and agreed. History of present illness and physical exam: Patient is a 48-year-old female with past medical history of migraines, gastric bypass surgery who presents to the emergency department with a chief complaint of lightheadedness and migraine headache. She states that she has had a headache for approximately 5 days that progressively worsened. She states that she tried to take Tylenol at home and notes that this was not helping her. She states that when she stood up she became very lightheaded she checked her blood pressure was noted that it was low at 95/50. States that she is checked it several times and ranged from 90- 1 30 systolic. Patient did note that when she tries to turn her head to the left she has a sensation of the room is spinning. She states that this lasts approximately short period of time and resolved within 5 minutes which has happened in the past but she never sought out evaluation. She went to urgent care today and they advised her to come here further evaluation management. Patient denies any sick contacts. Review of systems: Agree with above Physical exam: Agree with above will add on that she completed finger-nose and ylst-gv-ekwi test bilaterally without any difficulty. When patient turns her head to the left this exacerbate her symptoms was fatigable. MDM Patient is a 48-year-old female who presents to the emergency department chief complaint of migraine headache, lightheadedness, dizziness. On the differential diagnose includes but not limited to BPPV, orthostatic hypotension, near syncope. Patient be given IV fluids, meclizine and Zofran. Patient CBC reviewed showed no evidence leukocytosis white blood count 7.8, hemoglobin is 14.3, platelet count was noted be 219. Patient sodium was 130, potassium normal 3.8, creatinine normal 0.63. Patient's urinalysis reviewed showed no evidence of infection. Patient CT head and brain without contrast showed no acute findings. Patient chest x-ray reviewed by myself and by radiology showed no acute cardiopulmonary processes. Patient's EKG reviewed by myself which showed sinus bradycardia with a rate of 56 bpm. On reevaluation the patient she is feeling much improved she would like to go home. Patient ambulated here in the emergency department any difficulty. Will give her prescription for meclizine was advised to follow-up with her primary care physician outpatient setting. She is encouraged to return with worsening symptoms or concerns. All question concerns answered she was discharged home in stable condition. Final impression: BPPV Dehydration Disposition: Patient will be discharged home in stable condition Supervising attending attestation: Dandre HARDWICK History of Present Illness Chief Complaint: Dizziness Narrative Narrative: 48-year-old female with past medical history of migraines, gastric bypass states yesterday around 3 PM she felt lightheaded. She checked her blood pressure and it was 95/50. She checked it multiple times and it was labile anywhere from 90 to 130 systolic. She describes that when she stands she feels like all the blood is draining from her head and she might pass out, but she also says she has room spinning for several seconds to minutes when she turns her head. She has had the spinning sensation in the past but it always resolved within 5 minutes or so so she never sought evaluation. She had continued symptoms today and went to urgent care. She states her ear examination was normal so they sent her here for further evaluation. She is requesting that her urine is screened for infection because she has had UTIs in the past without symptoms. She also reports over the last 5 days having a generalized headache which is similar to her prior migraines. She vomited once yesterday. She has no visual changes or diplopia. No focal motor or sensory changes. No fever or upper respiratory symptoms. [facility] Medical History (Updated 06/07/24 @ 13:56 by LASHON Lora) Elevated LFTs Seasonal allergies Wears glasses Depression Anxiety Alcohol use Low iron Excessive bleeding Migraine headache Loss of consciousness Gastric reflux Former smoker Obstructive sleep apnea CPAP (continuous positive airway pressure) dependence Asthma History of wrist fracture Back pain Home Medications ???Medication ???Instructions ???Recorded ???Last Taken ???Type albuterol sulfate 90 mcg/a (more content not included)... Normal [facility] Urinalysis, Completeon 06-07 BACTERIA 1+ /hpf Normal None Seen [facility] Comment on above: Order Comment: CLEAN CATCH Performed By: #### L 400.0001 #### [facility] [address] [place], [address] EPI,SQUAMOUS 0-5 SEEN Normal 5-10 [facility] Comment on above: Order Comment: CLEAN CATCH Performed By: #### L 400.0001 #### [facility] [address] [place], [address] RBC 0-5 SEEN Normal 0-5 [facility] Comment on above: Order Comment: CLEAN CATCH Performed By: #### L 400.0001 #### [facility] [address] [place], [address] WBC 0-5 SEEN Normal 0-5 [facility] Comment on above: Order Comment: CLEAN CATCH Performed By: #### L 400.0001 #### [facility] [address] [place], [address] Mucus Ql (Urine sed) 0 SEEN Normal [facility] Comment on above: Order Comment: CLEAN CATCH Performed By: #### L 400.0001 #### [facility] [address] [place], [address] 25(OH)D3 [facility] 2024 25-hydroxyvitamin D3 [Mass/Vol] 37.0 ng/mL Normal 31.0-80.0 [facility] Comment on above: Order Comment: Speci men Type: BLOOD SPECIMEN Ordering Facility: [facility] Address: [address] [place] [address] Result Comment: Clas sification of 25 [place] Vitamin D status: Deficiency/Insufficiency: < or = 30 ng/ml. Sufficiency/Optimal Levels: 31-80 ng/mL Toxicity: > 100 ng/mL. Test performed by chemiluminescent immunoassay. Performed By: #### 1 989-3 #### [facility] CLIA [id number] [address] [place] [address] [place], [place] [address] [place] CBC panel Auto (Bld)on 05-26 Erythrocyte distribution width (RBC) [Ratio] 12.7 % Normal 11.5-15.0 [facility] Comment on above: Order Comment: Speci men Type: BLOOD SPECIMEN Ordering Facility: [facility] Address: [address] [place] [address] Performed By: #### 5 8410-2 #### [facility] [id number] [address] [place] [address] [place] Hematocrit (Bld) [Volume fraction] 42.9 % Normal 36.0-46.0 [facility] Comment on above: Order Comment: Speci men Type: BLOOD SPECIMEN Ordering Facility: [facility] Address: [address] [place] [address] Performed By: #### 5 8410-2 #### [facility] [id number] [address] [place] [address] [place] Hemoglobin (Bld) [Mass/Vol] 14.7 g/dL Normal 11.5-15.5 [facility] Comment on above: Order Comment: Speci men Type: BLOOD SPECIMEN Ordering Facility: [facility] Address: [address] [place] [address] Performed By: #### 5 8410-2 #### [facility] [id number] [address] [place] [address] [place] MCH (RBC) [Entitic mass] 30.1 pg Normal 26.0-34.0 [facility] Comment on above: Order Comment: Speci men Type: BLOOD SPECIMEN Ordering Facility: [facility] Address: [address] [place] [address] Performed By: #### 5 8410-2 #### [facility] [id number] [address] [place] [address] [place] MCHC (RBC) [Mass/Vol] 34.3 g/dL Normal 30.5-36.0 [facility] Comment on above: Order Comment: Speci men Type: BLOOD SPECIMEN Ordering Facility: [facility] Address: [address] [place] [address] Performed By: #### 5 8410-2 #### [facility] CLIA [id number] [address] [place] [address] [place] MCV (RBC) [Entitic vol] 87.9 fL Normal 80.0-100.0 [facility] Comment on above: Order Comment: Speci men Type: BLOOD SPECIMEN Ordering Facility: [facility] Address: [address] [place] [address] Performed By: #### 5 8410-2 #### [facility] CLIA [id number] [address] [place] [address] [place] Nucleated RBC (Bld) [#/Vol] 10*3/uL Normal <0.01 [facility] Comment on above: Order Comment: Speci men Type: BLOOD SPECIMEN Ordering Facility: [facility] Address: [address] [place] [address] Performed By: #### 5 8410-2 #### [facility] CLIA [id number] [address] [place] [address] [place] Platelet mean volume (Bld) [Entitic vol] 10.8 fL Normal 9.0-12.7 [facility] Comment on above: Order Comment: Speci men Type: BLOOD SPECIMEN Ordering Facility: [facility] Address: [address] [place] [address] Performed By: #### 5 8410-2 #### [facility] CLIA [id number] [address] [place] [address] [place] Platelets (Bld) [#/Vol] 282 10*3/uL Normal 150-400 [facility] Comment on above: Order Comment: Speci men Type: BLOOD SPECIMEN Ordering Facility: [facility] Address: [address] [place], [place] [address] Performed By: #### 5 8410-2 #### [facility] CLIA [id number] [address] [place] [address] [place] RBC (Bld) [#/Vol] 4.88 10*6/uL Normal 3.90-5.20 [facility] Comment on above: Order Comment: Speci men Type: BLOOD SPECIMEN Ordering Facility: [facility] Address: [address] [place] [address] Performed By: #### 5 8410-2 #### [facility] CLIA [id number] [address] [place] [address] [place] WBC (Bld) [#/Vol] 12.27 10*3/uL High 3.70-11.00 [facility] Comment on above: Order Comment: Speci men Type: BLOOD SPECIMEN Ordering Facility: [facility] Address: [address] [place], [place] [address] Performed By: #### 5 8410-2 #### [facility] [id number] [address] [place] [address] [facility] [place] CNTHERAPYon 05-26-2024 CNTHERAPY OT/PT/Speech Visit (PTWS) -------- MARQUITA OMALLEY I ([id number]) 1975 F Date Time Provider Department 05/26/24 2:00 PM HEATHER DE LEON Date Time Provider Department Center 05/26/2024 2:00 PM [id number]-SHEATHER DE LEON [facility] Reason for Visit: PT Eval [747] Primary Visit Diagnosis:Acute pain of left knee [M25.562] Allergies As of Date: 05/26/2024 Noted Allergy Reaction BENADRYL (DIPHENHYDRAMINE) 02/13/2022 5 - Intolerance 14 - Other: See Comments Comments: Jittery, shaking, skin feels like its crawling, hyper LYRICA (PREGABALIN) 08/03/2010 14 - Other: See Comments Comments: Elevates blood pressure SEASONAL ALLERGIES 08/03/2010 14 - Other: See Comments Comments: Mostly Pollen-stuffy nose,headache SULFA (SULFONAMIDE ANTIBIOTICS) 08/03/2010 4 - Hives Date Reviewed: 05/19/2024 Reviewed by: Eliane Rich MA - Fully Assessed Prescriptions as of 05/26/2024 - ASHWAGANDHA EXTRACT ORAL Take by mouth once daily. - hcljehwh-zlka-yprde-oreg -capry 100 mg-150 mg- 50 mg-150 mg cap Take by mouth once daily. - Zinc Acetate, Oral, 50 mg (zinc) cap Take by mouth once daily. - vitamin b complex capsule Take 1 capsule by mouth once daily. - albuterol HFA (PROVENTIL HFA, VENTOLIN HFA) 90 mcg/actuation inhaler Inhale 2 Puffs as instructed four times a day as needed. - gabapentin (NEURONTIN) 600 mg tablet Take 1 tablet by mouth three times a day for 180 days. - traZODone (DESYREL) 150 mg tablet Take 1 tablet by mouth daily at bedtime. - famotidine (PEPCID) 20 mg tablet Take 1 tablet by mouth two times a day as needed. - fluticasone-salmeterol (ADVAIR DISKUS) 250-50 mcg/dose inhaler Inhale 1 Puff as instructed two times a day. Rinse and gargle mouth after use with water. Junior Network Administrator: Therapy (PT/OT/Speech/Resp) ID: [id number] 05/26/2024 2:19 PM Author: HEATHER DE LEON Signed by HEATHER DE LEON PT on 05/26/2024 at 2:19 PM Document text: Program_ID:[id number] Access Code: [email or web address] URL: [email or web address] Date: 05-26-2024 Prepared By: Heather De Leon Program Notes Exercises - Quad Setting and Stretching - 2-3 x daily - 7 x weekly - 2 sets - 5 reps - Supine Short Arc Quad - 1-2 x daily - 7 x weekly - 3 sets - 8 reps - Seated Long Arc Quad - 1-2 x daily - 7 x weekly - 2 sets - 5 reps - Sidelying Hip Abduction - 1 x daily - 7 x weekly - 3 sets - 8 reps - Gastroc Stretch on Wall - 1 x daily - 7 x weekly - 3 sets - reps Normal [facility] Comprehensive metabolic 2000 panelon 05-26-2024 Albumin [Mass/Vol] 4.0 g/dL Normal 3.9-4.9 [facility] Comment on above: Order Comment: Speci men Type: BLOOD SPECIMEN Ordering Facility: [facility] Address: [address] [place] [address] Performed By: #### 2 4323-8 #### [facility] [id number] [address] [place] [address] [place] ALP [Catalytic activity/Vol] 78 U/L Normal 34-123 [facility] Comment on above: Order Comment: Speci men Type: BLOOD SPECIMEN Ordering Facility: [facility] Address: [address] [place], [place] [address] Performed By: #### 2 4323-8 #### [facility] [id number] [address] [place] [address] [place] ALT [Catalytic activity/Vol] 9 U/L Normal 7-38 [facility] Comment on above: Order Comment: Speci men Type: BLOOD SPECIMEN Ordering Facility: [facility] Address: [address] [place] [address] Performed By: #### 2 4323-8 #### [facility] CLIA [id number] [address] [place] [address] [place] Anion gap [Moles/Vol] 11 mmol/L Normal 8-15 [facility] Comment on above: Order Comment: Speci men Type: BLOOD SPECIMEN Ordering Facility: [facility] Address: [address] [place] [address] Performed By: #### 2 4323-8 #### [facility] CLIA [id number] [address] [place] [address] [place] AST [Catalytic activity/Vol] 10 U/L Low 13-35 [facility] Comment on above: Order Comment: Speci men Type: BLOOD SPECIMEN Ordering Facility: [facility] Address: [address] [place] [address] Performed By: #### 2 4323-8 #### [facility] CLIA [id number] [address] [place] [address] [place] Bilirubin [Mass/Vol] 0.4 mg/dL Normal 0.2-1.3 [facility] Comment on above: Order Comment: Speci men Type: BLOOD SPECIMEN Ordering Facility: [facility] Address: [address] [place] [address] Performed By: #### 2 4323-8 #### [facility] CLIA [id number] [address] [place] [address] [place] Calcium [Mass/Vol] 9.5 mg/dL Normal 8.5-10.2 [facility] Comment on above: Order Comment: Speci men Type: BLOOD SPECIMEN Ordering Facility: [facility] Address: [address] [place] [address] Performed By: #### 2 4323-8 #### [facility] CLIA [id number] [address] [place] [address] [place] Chloride [Moles/Vol] 103 mmol/L Normal 98-107 [facility] Comment on above: Order Comment: Sagei men Type: BLOOD SPECIMEN Ordering Facility: [facility] Address: [address] [place] [address] Performed By: #### 2 4323-8 #### [facility] CLIA [id number] [address] [place] [address] [place] CO2 [Moles/Vol] 24 mmol/L Normal 22-30 [facility] Comment on above: Order Comment: Speci men Type: BLOOD SPECIMEN Ordering Facility: [facility] Address: [address] [place] [address] Performed By: #### 2 4323-8 #### [facility] CLIA [id number] [address] [place] [address] [place] Creatinine [Mass/Vol] 0.83 mg/dL Normal 0.58-0.96 [facility] Comment on above: Order Comment: Sagei men Type: BLOOD SPECIMEN Ordering Facility: [facility] Address: [address] [place] [address] Performed By: #### 2 4323-8 #### [facility] CLIA [id number] [address] [place] [address] Creatinine and Glomerular filtration rate.predicted panel (S/P/Bld) 87 mL/min/1.73m??? Normal >=60 [facility] Comment on above: Order Comment: Speci men Type: BLOOD SPECIMEN Ordering Facility: [facility] Address: [address] [place] [address] Result Comment: Radha mated Glomerular Filtration Rate (eGFR) is calculated using the 2020 CKD-EPI creatinine equation. This equation utilizes serum creatinine, sex, and age as parameters. The creatinine assay has traceable calibration to isotope dilution-mass spectrometry. Refer to KDIGO guidelines for clinical interpretation. In patients with unstable renal function, e.g. those with acute kidney injury, the eGFR may not accurately reflect actual GFR. Performed By: #### 2 4323-8 #### [facility] CLIA [id number] [address] [place] [address] [place] Glucose [Mass/Vol] 93 mg/dL Normal 74-99 [facility] Comment on above: Order Comment: Speci men Type: BLOOD SPECIMEN Ordering Facility: [facility] Address: [address] [place] [address] Result Comment: The [place] Diabetes Association (ADA) provides guidance for cutoff values for fasting glucose and random glucose. The ADA defines fasting as no caloric intake for at least 8 hours. Fasting plasma glucose results between 100 to 125 mg/dL indicate increased risk for diabetes (prediabetes). Fasting plasma glucose results greater than or equal to 126 mg/dL meet the criteria for diagnosis of diabetes. In the absence of unequivocal hyperglycemia, results should be confirmed by repeat testing. In a patient with classic symptoms of hyperglycemia or hyperglycemic crisis, random plasma glucose results greater than or equal to 200 mg/dL meet the criteria for diagnosis of diabetes. Reference: Standards of Medical Care in Diabetes 2016, [place] Diabetes Association. Diabetes Care. 2016.39(Suppl 1). Performed By: #### 2 4323-8 #### [facility] [id number] [address] [place] [address] [place] Potassium [Moles/Vol] 4.2 mmol/L Normal 3.7-5.1 [facility] Comment on above: Order Comment: Speci men Type: BLOOD SPECIMEN Ordering Facility: [facility] Address: [address] [place] [address] Performed By: #### 2 4323-8 #### [facility] [id number] [address] [place] [address] [place] Protein [Mass/Vol] 6.8 g/dL Normal 6.3-8.0 [facility] Comment on above: Order Comment: Sagei men Type: BLOOD SPECIMEN Ordering Facility: [facility] Address: [address] [place] [address] Performed By: #### 2 4323-8 #### [facility] CLIA [id number] [address] [place] [address] [place] Sodium [Moles/Vol] 138 mmol/L Normal 136-144 [facility] Comment on above: Order Comment: Speci men Type: BLOOD SPECIMEN Ordering Facility: [facility] Address: [address] [place] [address] Performed By: #### 2 4323-8 #### [facility] CLIA [id number] [address] [place] [address] [place] Urea nitrogen [Mass/Vol] 22 mg/dL High 7- [facility] Comment on above: Order Comment: Speci men Type: BLOOD SPECIMEN Ordering Facility: [facility] Address: [address] [place] [address] Performed By: #### 2 4323-8 #### [facility] CLIA [id number] [address] [place] [address] [place] Folate SerPl-mCncon 05-26-19 25 Folate [Mass/Vol] 5.6 ng/mL Normal >4.7 [facility] Comment on above: Order Comment: Speci men Type: BLOOD SPECIMENOrdering Facility: [facility] Address: [address] [place] [address] Performed By: #### 2 132-9, 2284-8, 2731-8 ####[facility] [id number] [place] [address] [place] HbA1c (Bld)on 05-26-2024 Average glucose Estimated from glycated hemoglobin (Bld) [Mass/Vol] 97 mg/dL Normal [facility] Comment on above: Order Comment: Speci men Type: BLOOD SPECIMEN Ordering Facility: [facility] Address: [address] [place] [address] Result Comment: eAG: (Estimated average glucose) is a calculated value from HgbA1c and is architectural representative of the average blood glucose level in the last 2-3 month period. Performed By: #### 5 5454-3 #### [facility] CLIA [id number] [address] [place] [address] [place] HbA1c (Bld) [Mass fraction] 5.0 % Normal 4.3-5.6 [facility] Comment on above: Order Comment: Speci men Type: BLOOD SPECIMEN Ordering Facility: [facility] Address: [address] [place] [address] Result Comment: [place] Diabetes Association guidelines indicate that patients with HgbA1c in the range 5.7-6.4% are at increased risk for development of diabetes, and intervention by lifestyle modification may be beneficial. HgbA1c greater or equal to 6.5% is considered diagnostic of diabetes. Performed By: #### 5 5454-3 #### [facility] CLIA [id number] [address] [place] [address] [place] Iron and Iron binding capaci ty panelon 05-26-2024 Iron [Mass/Vol] 57 ug/dL Normal 41-186 [facility] Comment on above: Order Comment: Speci men Type: BLOOD SPECIMEN Order[facility] Facility: [facility] Address: [address] [place] [address] Performed By: #### L [id number], [id number] #### [facility] CLIA [id number] [address] [place] [address] [place] Iron binding capacity [Mass/Vol] 324 ug/dL Normal 232-386 [facility] Comment on above: Order Comment: Speci men Type: BLOOD SPECIMEN Order[facility]: [facility] Address: [address] [place] [address] Performed By: #### L IH9670, OAW0284 #### [facility] CLIA [id number] [address] [place] [address] [place] Iron/TIBC [Molar ratio] 17.6 % Normal 15.0-57.0 [facility] Comment on above: Order Comment: Speci men Type: BLOOD SPECIMEN Order[facility] Address: [address] [place] [address] Performed By: #### L [id number], [id number] #### [facility] CLIA [id number] [address] [place] [address] [place] PTH-Intact SerPl-mCncon - Parathyrin.intact [Mass/Vol] 54 pg/mL Normal 15-65 [facility] Comment on above: Order Comment: Speci men Type: BLOOD SPECIMENOrdering Facility: [facility] Address: [address] [place] [address] Performed By: #### 2 132-9, 2284-8, 2731-8 ####[facility] [id number] [address] [place] THERAPY NTon 05-26-2024 THERAPY NT HNO ID: [id number] Author: HEATHER DE LEON, PT Service: ? Author Type: Physical Therapist Type: Therapy (PT/OT/Speech/Resp) Filed: 05/26/2024 14:19 Note Text: Program_ID:[id number] Access Code: [email or web address] URL: [email or web address]/ Date: 05-26-2024 Prepared By: Heather De Leon Program Notes Exercises - Quad Setting and Stretching - 2-3 x daily - 7 x weekly - 2 sets - 5 reps - Supine Short Arc Quad - 1-2 x daily - 7 x weekly - 3 sets - 8 reps - Seated Long Arc Quad - 1-2 x daily - 7 x weekly - 2 sets - 5 reps - Sidelying Hip Abduction - 1 x daily - 7 x weekly - 3 sets - 8 reps - Gastroc Stretch on Wall - 1 x daily - 7 x weekly - 3 sets - reps Normal [facility] TSH SerPl-aCncon 05-26-2024 TSH Qn 0.877 m[IU]/L Normal 0.270-4.200 [facility] Comment on above: Order Comment: Speci men Type: BLOOD SPECIMEN Order[facility] Facility: [facility] Address: [address] [place] [address] Result Comment: If t he patient is , TSH reference range varies by gestational period: First Trimester (weeks 9-12): 0.180-2.990 mIU/L Second Trimester: 0.110-3.980 mIU/L Third Trimester: 0.480-4.710 mIU/L Oziel White et al. A Practical Approach for the Verifications and Determination of Site- and Trimester-Specific Reference Intervals for Thyroid Function tests in . Thyroid, 2019:29:3:412-420. Chris Vasquez, et al. 2017 Guidelines of the [place] Thyroid Association for the Diagnosis and Management of Thyroid Disease during and the . Thyroid, 2017:27:3:315-389. Performed By: #### L [id number], [id number] #### [facility] CLIA [id number] [address] [place] [address] [place] VITAMIN B1 (THIAMINE), WHOLE BLOODon 05-26-2024 Thiamine (Bld) [Moles/Vol] 202.7 nmol/L Normal 84.3-213.3 [facility] Comment on above: Order Comment: Speci men Type: BLOOD SPECIMEN Ordering Facility: [facility] Address: [address] [place] [address] Result Comment: This assay measures the concentration of thiamine diphosphate (TDP), the primary active form of vitamin B1. Approximately 90 percent of vitamin B1 present in whole blood is TDP. Thiamine and thiamine monophosphate, which comprise the remaining 10 percent, are not measured. This test was developed, and its performance characteristics determined by the [facility] Department of Pathology and Laboratory Medicine. It has not been cleared or approved by the FDA. The [facility] Department of Pathology and Laboratory Medicine is regulated under CLIA as qualified to perform high-complexity testing. This test is used for clinical purposes. It should not be regarded as investigational or for research. Performed By: #### L [id number], [id number] #### [facility] CLIA [id number] [address] [place] [address] [place] Vit B12 SerPl-mCncon 025 Cobalamin (Vitamin B12) [Mass/Vol] 334 pg/mL Normal 232-1245 [facility] Comment on above: Order Comment: Speci men Type: BLOOD SPECIMENOrdering Facility: [facility] Address: [address] [place] [address] Performed By: #### 2 132-9, 2284-8, 2731-8 ####[facility] [id number] KAREY LEBLANCK [id number] [facility]24 CNPN Telephone (BMIREJ) -------- MARQUITA OMALLEY I ([id number]) 1975 F Date Time Provider Department 05/22/24 ELANA NOEL BMIRE During your visit today, we recorded the following information about you: Elana Noel MD 05/22/2024 10:14 AM Signed Hello, Can you please help patient get scheduled as per my encounter today? Consult to plastic surgery, and also, follow up with Bariatric Medical team in approximately October. Remedios Santiago APRN.[facility] 05/29/2024 8:01 AM Signed Repeat CBC was ordered. Alanna Hummel MA 05/29/2024 10:33 AM Signed Notified via [employer]. Alanna Hummel MA Allergies As of Date: 05/22/2024 Noted Allergy Reaction BENADRYL (DIPHENHYDRAMINE) 02/13/2022 5 - Intolerance 14 - Other: See Comments Comments: Jittery, shaking, skin feels like its crawling, hyper LYRICA (PREGABALIN) 08/03/2010 14 - Other: See Comments Comments: Elevates blood pressure SEASONAL ALLERGIES 08/03/2010 14 - Other: See Comments Comments: Mostly Pollen-stuffy nose,headache SULFA (SULFONAMIDE ANTIBIOTICS) 08/03/2010 4 - Hives Date Reviewed: 05/19/2024 Reviewed by: Rich, Eliane, MA - Fully Assessed Reason for Visit: Appointment [186] Orders [681] Primary Visit Diagnosis:Abnormal blood cell count [R79.9] Order(s):COMPLETE BLOOD COUNT AND DIFFERENTIAL [SQCBCDIF] Order #: [id number] FUTURE Prescriptions as of 05/29/2024 - BREEDHA EXTRACT ORAL Take by mouth once daily. - irmaufet-jetr-auiyf-oreg -capry 100 mg-150 mg- 50 mg-150 mg cap Take by mouth once daily. - Zinc Acetate, Oral, 50 mg (zinc) cap Take by mouth once daily. - vitamin b complex capsule Take 1 capsule by mouth once daily. - albuterol HFA (PROVENTIL HFA, VENTOLIN HFA) 90 mcg/actuation inhaler Inhale 2 Puffs as instructed four times a day as needed. - gabapentin (NEURONTIN) 600 mg tablet Take 1 tablet by mouth three times a day for 180 days. - traZODone (DESYREL) 150 mg tablet Take 1 tablet by mouth daily at bedtime. - famotidine (PEPCID) 20 mg tablet Take 1 tablet by mouth two times a day as needed. - fluticasone-salmeterol (ADVAIR DISKUS) 250-50 mcg/dose inhaler Inhale 1 Puff as instructed two times a day. Rinse and gargle mouth after use with water. Problem List As Of Date 05/22/2024 Noted Resolved Migraine without aura, intractable, without sta*02/20/2019 Obesity, Class II, BMI 35-39.9 [E66.812] 02/20/2019 Anxiety with depression [F41.8] 02/20/2019 Mild intermittent asthma without complication [*01/12/2020 ALISHA (obstructive sleep apnea) [G47.33] 08/31/2020 Obstructive sleep apnea (adult) (pediatric) [G4*04/11/2021 Vitamin D deficiency [E55.9] 02/05/2023 Diagnosed: 02/05/2023 NAFLD (nonalcoholic fatty liver disease) [K76.0]02/05/2023 Morbid obesity (HCC) [E66.01] 02/05/2023 History of lumbar fusion [Z98.1] 05/02/2023 Diagnosed: 05/02/2023 Polyp of gallbladder [K82.4] 09/15/2022 Diagnosed: 05/02/2023 Von Willebrand disease (HCC) [D68.00] 05/02/2023 Diagnosed: 05/02/2023 Obesity, Class III, BMI >= 40 [E66.01] 05/11/2023 Encounter Status:Closed by ALANNA HUMMEL on 05/29/24 Normal [facility] CNOVon 05-19-2024 CNOV Office Visit (ORTHWS ) -------- MARQUITA OMALLEY I ([id number]) 1975 F Date Time Provider Department 05/19/24 9:30 AM LISA RODRÍGUEZ During your visit today, we recorded the following information about you: Eliane Rich MA 05/19/2024 2:57 PM Signed Patient presents with: Left Knee - New, Knee Pain Referred by Rosalina Pepper AMB ROOMING INTAKE FLOWSHEET DATA Pain Pain Level: 6 Pain Location: Knee-Left Description: Aching, Pressure, Radiating, Sharp, Shooting, Stabbing/Not Incision, Tightness Duration Amount of Time: 2 Duration Units: Weeks Frequency: Continuous Intervention/Comfort measure: Medication, Reposition, Cold, Pillow support, Positioning, Splinting Patient states 2 weeks ago she walked a 5K and half way through she started having pain in her left knee. Later that night she went to an [employer] game and walked a long distance again. No specific injury. She is having posterior, lateral and medial knee pain. Feels her swelling is better. She has tried Biofreeze, Voltaren gel and Ten units and only helps temporary. 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 X-rays done on 05/05/24. Lisa Rodríguez PA-C 05/19/2024 2:57 PM Signed Lisa Rodríguez PA-C Department of Orthopaedics Orthopaedics [address] [facility] [address] Dept: [phone] Dept May 19, [address] Remedios Pepper for an opinion regarding left knee pain. My final recommendations will be communicated back to the requesting physician by way of shared Medical record or letter to requesting physician via US mail. CHIEF COMPLAINT: New and Knee Pain of the Left Knee and Referred by Rosalina Pepper Ms. Marquita Omalley is a 48 year old female who presents with pain in her left knee which started about 2 weeks ago after she participated in a 5K. Patient states that she walked for most of the race, was having knee pain during the race. After the race she went to a [employer] game and was doing a lot more walking in climbing. Since then the knee has been painful, pain is mainly anterior medial and is a 6 out of 10 pressure which is worse with activity. She states that the knee feels unsteady as though it might give out. She has been wearing a knee brace which is beneficial. The patient had gastric bypass surgery in the past, she reports an 80 pound weight loss over the past year. She uses topical Biofreeze and Voltaren gel which is somewhat beneficial. She has been participating in 5K walks with her goal to be able to jog or run a full 5K. ASSESSMENT: M17.0 Primary osteoarthritis of both knees (primary encounter diagnosis) M25.562 Acute pain of left knee PLAN: The patient has some mild arthritic changes in the knee. I did suggest continuing with the topicals and did offer her a corticosteroid injection to see if we can get her pain under control. Advised that she pursue low impact exercises to keep from aggravating the osteoarthritis in her knee. We also discussed getting her into physical therapy to work on some strengthening. Patient agrees to plan. Ms. Marquita Omalley was advised as to contrast therapies and/or to take analgesics/anti-inflamma tories as needed and all contraindications were reviewed. OBJECTIVE: Ms. Marquita Omalley is a pleasant 48 year old in no apparent distress. Gen:LMP 01/03/2019 nl development, obese, no deformities ENT: Normocephalic, normal hearing, moist mucosa CV: Pulses:DP/PT= 2+ and symmetric, capillary refill < 2 secs, no peripheral edema/varicosities Skin: no rash, bruising or lesions. Good turgor. Psych: cooperative and appropriate, alert and oriented x 3, good mood and affect. Musculoskeletal: KNEE EXAM: Left: Alignment: Neutral Range of motion is lacking a few degrees secondary to tight hamstrings degrees in extension and 120 degrees of flexion. Extension La degrees Pain with ROM: Yes Effusion: Slight Tender to the palpation of Medial femoral condyle and Medial joint line Pain with patellar compression: Yes Stability: Anterior/Posterior stable and Varus/Valgus stable Hip Exam: flexion to 100+ degrees, full extension, internal/external rotation adequate, and no pain with log roll Neurovascular Status: Sensation Intact, Moves foot and ankle up AND down, and 2+ dorsalis pedis In addition to the comprehensive evaluation, assessment and plan outlined above, and as a distinct and separate element to the visit today, separate from a PT consult order, we have made the determination to proceed with an injection to aid in the management of the patient's condition. We discussed the risks, benefits, alternatives and expected outcomes of this injection in detail, and the patient agreed to proceed. The procedure was performed as detailed below. Large Joint Arthro/Inj: L knee joint Informed Consent Consent Obtained: V (more content not included)... Normal [facility] Large Joint Arthro/Inj: L kn ee jointon 05-19-2024 Lisa Rodríguez PA -C 05/19/2024 2:57 PM Large Joint Arthro/Inj: L knee joint Informed Consent Consent Obtained: Verbal [place] Protocol A moment to CARE was completed. SIGN IN Sign in communication not applicable due to emergent procedure. Personnel directly involved with the procedure wore the appropriate PPE. Special Equipment: N/A Patient/Surrogate Stated/Verified: Patient name, Date of , Relevant allergies and Intended procedure TIME OUT Relevant labs, photos, and/or imaging studies have been reviewed. Intended patient and procedure match the source document(s). Consent documented and matches the intended procedure. Correct side/site marked and visible. Medications required for procedure verified. No fire risk assessment and interventions applicable. No implant(s) inserted.05/19/2024 10:12 AM The procedure site was prepped in the usual sterile fashion. Site: L knee joint Medications: 6 mg betamethasone acetate-betamethasone sodium phosphate 6 mg/mL Anesthetics: 5 mL lidocaine (PF) 10 mg/mL (1 %) Outcome: Tolerated well, no immediate complications Post-injection instructions were reviewed with the patient and the patient voiced understanding of these instructions. SIGN OUT No specimen collected. All instruments, equipment, possible retained foreign bodies accounted for. Post-procedure follow-up management communicated and Plan of Care Visit completed when applicable [facility] CNOVon 05-05-2024 CNOV Office Visit (FAMPWS ) -------- MARQUITA OMALLEY I ([id number]) 1975 F Date Time Provider Department 05/05/24 3:40 PM [facility] During your visit today, we recorded the following information about you: Pulse Respiration Blood pressure Weight 95/minute 16/minute 120/74 86.6 kg Remedios Pepper, ICE BAG ASSEMBLER.CAREER SERVICES OFFICER 05/05/2024 3:57 PM Signed This is a 48 year old female who presents today with: Patient presents with: Knee Pain: Left knee pain and swelling for 3 days HISTORY OF PRESENT ILLNESS: Marquita Omalley is a 48 year old female. Patient presents with: Knee Pain: Left knee pain and swelling for 3 days On Sunday, she ran a 5 K then went to [employer] football game. Left knee started to swell at the game. Feels tight. No pain or instability. Pulling medial aspect. On occasion the left knee is tight. Took tumeric, 800 mg ibuprofen, iced it, elevated. PAST MEDICAL HISTORY: PAST MEDICAL HISTORY Diagnosis Date Anxiety Arthritis Chest pain Depression Ear infection Migraines Obesity, Class II, BMI 35-39.9 02/20/2019 PTSD (post-traumatic stress disorder) Sciatica UTI (lower urinary tract infection) PAST SURGICAL HISTORY Procedure Laterality Date ABDOMINAL SURGERY HX APPENDECTOMY 1983 APPENDECTOMY HX BACK SURGERY HX BREAST SURGERY HX COLONOSCOPY SCREENING 02/13/2022 10 year next colonoscopy 2031 COLPOPEXY VAGINAL INTRAPERITONEAL APPROACH 01/23/2019 uterosacral ligament fixation FRACTURE SURGERY LIG/TRNSXJ FLP TUBE ABDL/VAG APPR UNI/BI 06/2007 MAMMO MAMMOGRAM 07/20/2010 OTHER lumbar spinal fusion L5-S1 PAST SURGICAL HISTORY OF 09/2008 Micro Disectomy L5S1 PAST SURGICAL HISTORY OF Left 2013 Left wrist surgery POST COLPORRHAPHY RECTOCELE W/WO PERINEORRHAPHY 01/23/2019 posterior repair REDUCTION OF LARGE BREAST 09/2006 Bilateral SKIN BIOPSY HX SLING OPER STRES INCONTINENCE 01/23/2019 TVT exact TONSILLECTOMY HX VAGINAL HYSTERECTOMY VAGINAL HYSTERECTOMY UTERUS 250 GM/< 01/23/2019 tubes and ovaries remain ALLERGIES Benadryl [Diphenhydramine], Lyrica [Pregabalin], Seasonal Allergies, and Sulfa (Sulfonamide Antibiotics) MEDICATIONS Current Outpatient Medications Medication Sig albuterol HFA (PROVENTIL HFA, VENTOLIN HFA) 90 mcg/actuation inhaler Inhale 2 Puffs as instructed four times a day as needed. gabapentin (NEURONTIN) 600 mg tablet Take 1 tablet by mouth three times a day for 180 days. traZODone (DESYREL) 150 mg tablet Take 1 tablet by mouth daily at bedtime. famotidine (PEPCID) 20 mg tablet Take 1 tablet by mouth two times a day as needed. fluticasone-salmeterol (ADVAIR DISKUS) 250-50 mcg/dose inhaler Inhale 1 Puff as instructed two times a day. Rinse and gargle mouth after use with water. No current facility-administered medications for this visit. FAMILY HISTORY Problem Relation Age of Onset Allergies Mother Anesthesia Mother Headache Mother Obesity Mother Hypertension Father Heart Father Obesity Sister Allergies Sister Headache Sister Diabetes Maternal Grandmother Emphysema Maternal Grandmother Breast Cancer Maternal Grandmother Emphysema Maternal Grandfather Alcohol/Drug Paternal Grandfather Headache Daughter other (Pneumonia) Daughter Headache Daughter Headache Son other (RSV) Son Psychiatry Maternal Uncle Suicide Social History Tobacco Use Smoking status: Former Current packs/day: 0.00 Types: Cigarettes Quit date: 08/03/2005 Years since quittin.7 Smokeless tobacco: Never Vaping Use Vaping status: Never Used Substance Use Topics Alcohol use: Not Currently Comment: Rarely Drug use: No EXAM: BP 120/74 Pulse 95 Resp 16 Wt 86.6 kg (191 lb) LMP 01/03/2019 (Exact Date) SpO2 100% BMI 32.79 kg/m? PHYSICAL EXAM: Physical Exam Vitals reviewed. Constitutional: Appearance: Normal appearance. Musculoskeletal: General: Swelling and signs of injury present. No tenderness or deformity. Normal range of motion. Left lower leg: Edema present. Comments: Left medial knee > lateral swelling. Effusion noted. No pain with flexion, extension, or medial or lateral flexion. No instability. No heat, no instability. No crepitus Skin: General: Skin is warm and dry. Neurological: Mental Status: She is alert and oriented to person, place, and time. Psychiatric: Mood and Affect: Mood normal. Behavior: Behavior normal. LABS: Xray left knee ASSESSMENT/PLAN: 1. Injury of left knee, initial encounter - ICD9: 959.7, ICD10: S89.92XA Ran 5 K- left knee swollen since then - METHYLPREDNISOLONE 4 MG TABLETS IN A DOSE PACK - XR KNEE GENERAL 4V AP BOTH/PA BOTH/LAT/MERC LEFT - Knee support as needed - Ice for today and tomorrow Discussed treatment plan and patient voices understanding. Patient's questions answered appropriately. Medications and potential side effects wer (more content not included)... Normal [facility] XR KNEE 4V AP/PA BOTH+LAT/ME R LTon 05-05-2024 XR KNEE 4V AP/PA BOTH+LAT/NARA LT * * *Final Report* * * DATE OF EXAM: May 05 2024 4:18PM WOX 5202 - XR KNEE 4V AP/PA BOTH+LAT/NARA LT / PROCEDURE REASON: Injury of left knee, initial encounter * * * * Physician Interpretation * * * * EXAMINATION / TECHNIQUE: XR KNEE 4V AP/PA BOTH+LAT/NARA LT HISTORY: ran a 5k Sunday and then went to [employer] game and now has pressure medial and lateral left knee Injury of left knee, initial encounter COMPARISON: None RESULT: No acute fracture or osseous malalignment is identified. The joint spaces are preserved. Small to moderate-sized joint effusion. IMPRESSION: No acute bony abnormality. Packer Fuser: MATT Transcribe Date/Time: May 11 2024 6:16P Dictated by : RADHA MARX MD This examination was interpreted and the report reviewed and electronically signed by: RADHA MARX MD on May 11 2024 6:17PM EST [id number] Normal [facility] CNOVon 03-28-2024 CNOV Office Visit (FAMPWS ) -------- MARQUITA OMALLEY I ([id number]) 1975 F Date Time Provider Department 03/28/24 8:00 AM REMEDIOS PEPPER FAMPWS During your visit today, we recorded the following information about you: Pulse Respiration Blood pressure Weight 97/minute 16/minute 120/76 88 kg Remedios Pepper, [place].CAREER SERVICES OFFICER 03/28/2024 8:22 AM Signed This is a 48 year old female who presents today with: Patient presents with: Back Pain: Medication follow up HISTORY OF PRESENT ILLNESS: Marquita Omalley is a 48 year old female. Patient presents with: Back Pain: Medication follow up Feeling better. Shoulder is better. Didn't sleep well last night because fell asleep on couch. Didn't take trazodone but when she takes it, it is effective. Blood pressure improved. Dull Headache with head ache. Left arm painful and tingling intermittent. Gabapentin increase helps. Down left arm AND 4-5 fingers. Stopped Seeing chiropractor. He told her that C5-6 is bulging. Also affecting C6-7. Pain in Left ridge of shoulder hurts this morning. Upper left back into bicep and down to 4th and 5th fingers intermittent. Getting Stim, ultrasound, and traction. Icing and using biofreeze, also using TENS unit Cough for last couple weeks. PAST MEDICAL HISTORY: PAST MEDICAL HISTORY Diagnosis Date Anxiety Arthritis Chest pain Depression Ear infection Migraines Obesity, Class II, BMI 35-39.9 02/20/2019 PTSD (post-traumatic stress disorder) Sciatica UTI (lower urinary tract infection) PAST SURGICAL HISTORY Procedure Laterality Date ABDOMINAL SURGERY HX APPENDECTOMY 1982 APPENDECTOMY HX BACK SURGERY HX BREAST SURGERY HX COLONOSCOPY SCREENING 02/13/2022 10 year next colonoscopy 2031 COLPOPEXY VAGINAL INTRAPERITONEAL APPROACH 01/23/2019 uterosacral ligament fixation FRACTURE SURGERY LIG/TRNSXJ FLP TUBE ABDL/VAG APPR UNI/BI 06/2007 MAMMO MAMMOGRAM 07/20/2010 OTHER lumbar spinal fusion L5-S1 PAST SURGICAL HISTORY OF 09/2008 Micro Disectomy L5S1 PAST SURGICAL HISTORY OF Left 2013 Left wrist surgery POST COLPORRHAPHY RECTOCELE W/WO PERINEORRHAPHY 01/23/2019 posterior repair REDUCTION OF LARGE BREAST 09/2006 Bilateral SKIN BIOPSY HX SLING OPER STRES INCONTINENCE 01/23/2019 TVT exact TONSILLECTOMY HX VAGINAL HYSTERECTOMY VAGINAL HYSTERECTOMY UTERUS 250 GM/< 01/23/2019 tubes and ovaries remain ALLERGIES Benadryl [Diphenhydramine], Lyrica [Pregabalin], Seasonal Allergies, and Sulfa (Sulfonamide Antibiotics) MEDICATIONS Current Outpatient Medications Medication Sig traZODone (DESYREL) 150 mg tablet Take 1 tablet by mouth daily at bedtime. famotidine (PEPCID) 20 mg tablet Take 1 tablet by mouth two times a day as needed. gabapentin (NEURONTIN) 600 mg tablet Take 1 tablet by mouth three times a day for 90 days. fluticasone-salmeterol (ADVAIR DISKUS) 250-50 mcg/dose inhaler Inhale 1 Puff as instructed two times a day. Rinse and gargle mouth after use with water. albuterol HFA (PROVENTIL HFA, VENTOLIN HFA) 90 mcg/actuation inhaler Inhale 2 Puffs as instructed four times a day as needed. No current facility-administered medications for this visit. FAMILY HISTORY Problem Relation Age of Onset Allergies Mother Anesthesia Mother Headache Mother Obesity Mother Hypertension Father Heart Father Obesity Sister Allergies Sister Headache Sister Diabetes Maternal Grandmother Emphysema Maternal Grandmother Breast Cancer Maternal Grandmother Emphysema Maternal Grandfather Alcohol/Drug Paternal Grandfather Headache Daughter other (Pneumonia) Daughter Headache Daughter Headache Son other (RSV) Son Psychiatry Maternal Uncle Suicide Social History Tobacco Use Smoking status: Former Current packs/day: 0.00 Types: Cigarettes Quit date: 08/03/2005 Years since quittin.6 Smokeless tobacco: Never Vaping Use Vaping status: Never Used Substance Use Topics Alcohol use: Not Currently Comment: Rarely Drug use: No EXAM: BP 120/76 Pulse 97 Resp 16 Wt 88 kg (194 lb) LMP 01/03/2019 (Exact Date) SpO2 97% BMI 33.30 kg/m? PHYSICAL EXAM: Physical Exam Constitutional: Appearance: Normal appearance. HENT: Head: Normocephalic. Cardiovascular: Rate and Rhythm: Normal rate and regular rhythm. Pulses: Normal pulses. Heart sounds: Normal heart sounds. Pulmonary: Effort: Pulmonary effort is normal. Breath sounds: Normal breath sounds. Comments: Bronchial egophony Abdominal: General: Bowel sounds are normal. Palpations: Abdomen is soft. Musculoskeletal: General: Normal range of motion. Comments: Some persistent pain in shoulder but improved. Radicular sx only intermittent Skin: General: Skin is warm and dry. Neurological: Mental Status: She is alert and oriented to person, place, and time. Psychiatric: Mood and Affect: (more content not included)... Normal [facility] AFP, Tumor Markeron 01-15-20 24 AFP TUMOR MAURY 2.4 ng/mL Normal 0.0-6.4 [facility] Comment on above: Order Comment: Test( s) [id number], Serum or Plasmawas developed and its performance characteristicsdetermined by [facility]. It has not been cleared or approvedby the Food and Drug Administration.N Result Comment: [facility] Electrochemiluminescence Immunoassay (ECLIA) Values obtained with different assay methods or kits cannot be used interchangeably. Results cannot be interpreted as absolute evidence of the presence or absence of malignant disease. This test is not interpretable in females. Performed By: #### L 500.4050, L3400.0700, L501.6710, L500.4100, L504.2610, L3300.1200, L101.9900, L503.5510, L3100.5440, L803.2200, L3300.0700, L3100.6900, L501.9985, L3000.0375, L100.0100, L3300.0100, L800.1280, L506.1000 ####[facility] [id number] [place], [address] ANCAon 01-15-2024 Atypical pANCA <1:20 Normal Neg:<1:20 [facility] Comment on above: Order Comment: Test( s) [id number], Serum or Plasmawas developed and its performance characteristicsdetermined by [facility]. It has not been cleared or approvedby the Food and Drug Administration.N Result Comment: The atypical pANCA pattern has been observed in a significant percentage of patients with ulcerative colitis, primary sclerosing cholangitis and autoimmune hepatitis. Performed By: #### L 500.4050, L3400.0700, L501.6710, L500.4100, L504.2610, L3300.1200, L101.9900, L503.5510, L3100.5440, L803.2200, L3300.0700, L3100.6900, L501.9985, L3000.0375, L100.0100, L3300.0100, L800.1280, L506.1000 ####[facility] [id number] [facility]. [place], [place], [id number] Cytoplasmic Ab <1:20 Normal Neg:<1:20 [facility] Comment on above: Order Comment: Test( s) [id number], Serum or Plasmawas developed and its performance characteristicsdetermined by [facility]. It has not been cleared or approvedby the Food and Drug Administration.N Performed By: #### L 500.4050, L3400.0700, L501.6710, L500.4100, L504.2610, L3300.1200, L101.9900, L503.5510, L3100.5440, L803.2200, L3300.0700, L3100.6900, L501.9985, L3000.0375, L100.0100, L3300.0100, L800.1280, L506.1000 ####[facility] [id number] [facility], [address] Perinuclear Ab. <1:20 Normal Neg:<1:20 [facility] Comment on above: Order Comment: Test( s) 132069-Gigcwc, Serum or Plasmawas developed and its performance characteristicsdetermined by [facility]. It has not been cleared or approvedby the Food and Drug Administration.N Result Comment: The presence of positive fluorescence exhibiting P-ANCA or C-ANCA patterns alone is not specific for the diagnosis of Vlad's Granulomatosis (WG) or microscopic polyangiitis. Decisions about treatment should not be based solely on ANCA IFA results. The International ANCA Group Consensus recommends follow up testing of positive sera with both AR- 3 and MPO-ANCA enzyme immunoassays. As many as 5% serum samples are positive only by EIA. Ref. AM J Clin Pathol 1999;111:507-513. Performed By: #### L 500.4050, L3400.0700, L501.6710, L500.4100, L504.2610, L3300.1200, L101.9900, L503.5510, L3100.5440, L803.2200, L3300.0700, L3100.6900, L501.9985, L3000.0375, L100.0100, L3300.0100, L800.1280, L506.1000 ####[facility] [address] [place], [place], [id number] Angiotensin Convert Enzymeon 01-15-2024 ANGIOT-CONV.ENZ 20 U/L Normal 14-82 [facility] Comment on above: Order Comment: Test( s) 606484-Tkhjnc, Serum or Plasmawas developed and its performance characteristicsdetermined by [facility]. It has not been cleared or approvedby the Food and Drug Administration.N Performed By: #### L 500.4050, L3400.0700, L501.6710, L500.4100, L504.2610, L3300.1200, L101.9900, L503.5510, L3100.5440, L803.2200, L3300.0700, L3100.6900, L501.9985, L3000.0375, L100.0100, L3300.0100, L800.1280, L506.1000 ####[facility] [address] [place], [place], [id number] Anti-Smooth Muscle ABSon ANTISMOOTH MUSC 4 Units Normal 0-19 [facility] Comment on above: Order Comment: Test( s) 835116-Gooknq, Serum or Plasmawas developed and its performance characteristicsdetermined by [facility]. It has not been cleared or approvedby the Food and Drug Administration.N Result Comment: Nega tive 0 - 19 Weak positive 20 - 30 Moderate to strong positive >30 Actin Antibodies are found in 52-85% of patients with autoimmune hepatitis or chronic active hepatitis and in 22% of patients with primary biliary cirrhosis. Performed By: #### L 500.4050, L3400.0700, L501.6710, L500.4100, L504.2610, L3300.1200, L101.9900, L503.5510, L3100.5440, L803.2200, L3300.0700, L3100.6900, L501.9985, L3000.0375, L100.0100, L3300.0100, L800.1280, L506.1000 ####[facility] [address] [facility], [address] Ceruloplasminon 01-15-2024 CERULOPLASMIN 24.2 mg/dL Normal 19.0-39.0 [facility] Comment on above: Order Comment: Test( s) 778002-Rouoog, Serum or Plasmawas developed and its performance characteristicsdetermined by [facility]. It has not been cleared or approvedby the Food and Drug Administration.N Performed By: #### L 500.4050, L3400.0700, L501.6710, L500.4100, L504.2610, L3300.1200, L101.9900, L503.5510, L3100.5440, L803.2200, L3300.0700, L3100.6900, L501.9985, L3000.0375, L100.0100, L3300.0100, L800.1280, L506.1000 ####[facility] [address] [facility], [address] Copper, Serum or Plasmaon COPPER, SERUM 86 ug/dL Normal 80-158 [facility] Comment on above: Order Comment: Test( s) 757975-Byzmtv, Serum or Plasmawas developed and its performance characteristicsdetermined by [facility]. It has not been cleared or approvedby the Food and Drug Administration.N Result Comment: Dete ction Limit = 5 Performed at: [address] [id number] Pecan Picker: Daryl Ibrahim PhD, Phone: [phone] Performed at: [address] [id number] Pecan Picker: Andrea Horton MD, Phone: [phone] Performed By: #### L 500.4050, L3400.0700, L501.6710, L500.4100, L504.2610, L3300.1200, L101.9900, L503.5510, L3100.5440, L803.2200, L3300.0700, L3100.6900, L501.9985, L3000.0375, L100.0100, L3300.0100, L800.1280, L506.1000 ####[facility] [address] [facility]. [place], [place], [id number] Hepatitis Panel Acuteon 09-0 COMMENT Comment Normal . [facility] Comment on above: Order Comment: Test( s) 457320-Nchvcx, Serum or Plasmawas developed and its performance characteristicsdetermined by [facility]. It has not been cleared or approvedby the Food and Drug Administration.N Result Comment: Not infected with HCV unless early or acute infection is suspected (which may be delayed in an immunocompromised individual), or other evidence exists to indicate HCV infection. Performed By: #### L 500.4050, L3400.0700, L501.6710, L500.4100, L504.2610, L3300.1200, L101.9900, L503.5510, L3100.5440, L803.2200, L3300.0700, L3100.6900, L501.9985, L3000.0375, L100.0100, L3300.0100, L800.1280, L506.1000 ####[facility] [address] [facility], [address] HEP B CORE,IgM Negative Normal Negative [facility] Comment on above: Order Comment: Test( s) 556041-Gskcvv, Serum or Plasmawas developed and its performance characteristicsdetermined by [facility]. It has not been cleared or approvedby the Food and Drug Administration.N Performed By: #### L 500.4050, L3400.0700, L501.6710, L500.4100, L504.2610, L3300.1200, L101.9900, L503.5510, L3100.5440, L803.2200, L3300.0700, L3100.6900, L501.9985, L3000.0375, L100.0100, L3300.0100, L800.1280, L506.1000 ####[facility] [address] [place], [address] HEP B SURF AG Negative Normal Negative [facility] Comment on above: Order Comment: Test( s) 707241-Arbuml, Serum or Plasmawas developed and its performance characteristicsdetermined by [facility]. It has not been cleared or approvedby the Food and Drug Administration.N Performed By: #### L 500.4050, L3400.0700, L501.6710, L500.4100, L504.2610, L3300.1200, L101.9900, L503.5510, L3100.5440, L803.2200, L3300.0700, L3100.6900, L501.9985, L3000.0375, L100.0100, L3300.0100, L800.1280, L506.1000 ####[facility] [address] [place], [address] HEP C VIRUS AB Non-Reactive Normal Non Reactive [facility] Comment on above: Order Comment: Test( s) 979778-Jwthur, Serum or Plasmawas developed and its performance characteristicsdetermined by [facility]. It has not been cleared or approvedby the Food and Drug Administration.N Performed By: #### L 500.4050, L3400.0700, L501.6710, L500.4100, L504.2610, L3300.1200, L101.9900, L503.5510, L3100.5440, L803.2200, L3300.0700, L3100.6900, L501.9985, L3000.0375, L100.0100, L3300.0100, L800.1280, L506.1000 ####[facility] [address] [place], [place], [id number] HEPATITIS A-IgM Negative Normal Negative [facility] Comment on above: Order Comment: Test( s) 604899-Ynmmwa, Serum or Plasmawas developed and its performance characteristicsdetermined by [facility]. It has not been cleared or approvedby the Food and Drug Administration.N Performed By: #### L 500.4050, L3400.0700, L501.6710, L500.4100, L504.2610, L3300.1200, L101.9900, L503.5510, L3100.5440, L803.2200, L3300.0700, L3100.6900, L501.9985, L3000.0375, L100.0100, L3300.0100, L800.1280, L506.1000 ####[facility] [address] [place], [place], [id number] USAMA Comprehensive Panelon USAMA TABLE Comment Normal . [facility] Comment on above: Order Comment: DR LUIS DE LA ROSA WANTS VITD,CMP, CBCD,LIPIDDR SHANE MOON ALL LABS EXCEPT VITD Result Comment: Auto antibody Disease Association Condition Frequency --------- Antinuclear Antibody, SLE, mixed connective Direct (USAMA-D) tissue diseases --------- dsDNA SLE 40 - 60% --------- Chromatin Drug induced SLE 90% SLE 48 - 97% --------- SSA (Ro) SLE 25 - 35% Sjogren's Syndrome 40 - 70% Lupus 100% --------- SSB (La) SLE 10% Sjogren's Syndrome 30% --------- Sm (anti-Tucker) SLE 15 - 30% --------- PANAMA HAT SMEARER Mixed Connective Tissue Disease 95% (U1 nRNP, SLE 30 - 50% anti-ribonucleoprotein) Polymyositis and/or Dermatomyositis 20% --------- Scl-70 (antiDNA Scleroderma (diffuse) 20 - 35% topoisomerase) Crest 13% --------- Isela-1 Polymyositis and/or Dermatomyositis 20 - 40% --------- Centromere B Scleroderma - Crest variant 80% Performed By: #### L 500.4050, L3400.0700, L501.6710, L500.4100, L504.2610, L3300.1200, L101.9900, L503.5510, L3100.5440, L803.2200, L3300.0700, L3100.6900, L501.9985, L3000.0375, L100.0100, L3300.0100, L800.1280, L506.1000 ####[facility] [address] [facility], [address] ANTI-CENT B AB <0.2 Normal 0.0-0.9 [facility] Comment on above: Order Comment: DR LUIS ROMOS VITD,CMP, CBCD,LIPIDDR SHANE MOON ALL LABS EXCEPT VITD Performed By: #### L 500.4050, L3400.0700, L501.6710, L500.4100, L504.2610, L3300.1200, L101.9900, L503.5510, L3100.5440, L803.2200, L3300.0700, L3100.6900, L501.9985, L3000.0375, L100.0100, L3300.0100, L800.1280, L506.1000 ####[facility] [address] [facility] [place], [address] ANTI-DNA (DS)AB <1 Normal 0-9 [facility] Comment on above: Order Comment: DR LUIS DE LA ROSA WANTS VITD,CMP, CBCD,LIPIDDR FREINDS WANTS ALL LABS EXCEPT VITD Result Comment: Nega tive <5 Equivocal 5 - 9 Positive >9 Performed By: #### L 500.4050, L3400.0700, L501.6710, L500.4100, L504.2610, L3300.1200, L101.9900, L503.5510, L3100.5440, L803.2200, L3300.0700, L3100.6900, L501.9985, L3000.0375, L100.0100, L3300.0100, L800.1280, L506.1000 ####[facility] [address] [facility]. [place], [place], [id number] ANTI-ISELA-1 <0.2 Normal 0.0-0.9 [facility] Comment on above: Order Comment: DR LUIS DE LA ROSA WANTS VITD,CMP, CBCD,LIPIDDR FREINDS WANTS ALL LABS EXCEPT VITD Performed By: #### L 500.4050, L3400.0700, L501.6710, L500.4100, L504.2610, L3300.1200, L101.9900, L503.5510, L3100.5440, L803.2200, L3300.0700, L3100.6900, L501.9985, L3000.0375, L100.0100, L3300.0100, L800.1280, L506.1000 ####[facility] [address] [place], [place], [id number] ANTI-SS-A < 0.2 Normal 0.0-0.9 [facility] Comment on above: Order Comment: DR LUIS DE LA ROSA WANTS VITD,CMP, CBCD,LIPIDDR FREINDS WANTS ALL LABS EXCEPT VITD Performed By: #### L 500.4050, L3400.0700, L501.6710, L500.4100, L504.2610, L3300.1200, L101.9900, L503.5510, L3100.5440, L803.2200, L3300.0700, L3100.6900, L501.9985, L3000.0375, L100.0100, L3300.0100, L800.1280, L506.1000 ####[facility] [address] [place], [address] ANTI-SS-B < 0.2 Normal 0.0-0.9 [facility] Comment on above: Order Comment: DR LUIS MOON VITD,CMP, CBCD,LIPIDDR FREINDS WANTS ALL LABS EXCEPT VITD Performed By: #### L 500.4050, L3400.0700, L501.6710, L500.4100, L504.2610, L3300.1200, L101.9900, L503.5510, L3100.5440, L803.2200, L3300.0700, L3100.6900, L501.9985, L3000.0375, L100.0100, L3300.0100, L800.1280, L506.1000 ####[facility] [address] [place], [address] ANTICHROMATIN <0.2 Normal 0.0-0.9 [facility] Comment on above: Order Comment: DR LUIS MOON VITD,CMP, CBCD,LIPIDDR FREINDS WANTS ALL LABS EXCEPT VITD Performed By: #### L 500.4050, L3400.0700, L501.6710, L500.4100, L504.2610, L3300.1200, L101.9900, L503.5510, L3100.5440, L803.2200, L3300.0700, L3100.6900, L501.9985, L3000.0375, L100.0100, L3300.0100, L800.1280, L506.1000 ####[facility] [address] [place], [address] ANTISCLERODERM <0.2 Normal 0.0-0.9 [facility] Comment on above: Order Comment: DR LUIS MOON VITD,CMP, CBCD,LIPIDDR FREINDS WANTS ALL LABS EXCEPT VITD Performed By: #### L 500.4050, L3400.0700, L501.6710, L500.4100, L504.2610, L3300.1200, L101.9900, L503.5510, L3100.5440, L803.2200, L3300.0700, L3100.6900, L501.9985, L3000.0375, L100.0100, L3300.0100, L800.1280, L506.1000 ####[facility] [address] [place], [address] PANAMA HAT SMEARER Ab <0.2 Normal 0.0-0.9 [facility] Comment on above: Order Comment: DR LUIS MOON VITD,CMP, CBCD,LIPIDDR FREINDS WANTS ALL LABS EXCEPT VITD Performed By: #### L 500.4050, L3400.0700, L501.6710, L500.4100, L504.2610, L3300.1200, L101.9900, L503.5510, L3100.5440, L803.2200, L3300.0700, L3100.6900, L501.9985, L3000.0375, L100.0100, L3300.0100, L800.1280, L506.1000 ####[facility] [address] [facility], [address] TUCKER Ab <0.2 Normal 0.0-0.9 [facility] Comment on above: Order Comment: DR LUIS MOON VITD,CMP, CBCD,LIPIDDR FREINDS WANTS ALL LABS EXCEPT VITD Performed By: #### L 500.4050, L3400.0700, L501.6710, L500.4100, L504.2610, L3300.1200, L101.9900, L503.5510, L3100.5440, L803.2200, L3300.0700, L3100.6900, L501.9985, L3000.0375, L100.0100, L3300.0100, L800.1280, L506.1000 ####[facility] [address] [place], [place], [address] Anti-Mitochondrial ABon - ANTIMITOCHON AB <20.0 Normal 0.0-20.0 [facility] Comment on above: Order Comment: DR LUIS DE LA ROSA WANTS VITD,CMP, CBCD,LIPIDDR SHANE WANTS ALL LABS EXCEPT VITD Result Comment: Nega tive 0.0 - 20.0 Equivocal 20.1 - 24.9 Positive >24.9 Mitochondrial (M2) Antibodies are found in 90-96% of patients with primary biliary cirrhosis. Performed at: [address] [id number] Pecan Picker: Daryl Ibrahim PhD, Phone: [phone] Performed By: #### L 500.4050, L3400.0700, L501.6710, L500.4100, L504.2610, L3300.1200, L101.9900, L503.5510, L3100.5440, L803.2200, L3300.0700, L3100.6900, L501.9985, L3000.0375, L100.0100, L3300.0100, L800.1280, L506.1000 ####[facility] [address] [place], [place], [id number] ABD Limited w/ Elastographyo n 01-11-2024 ABD Limited w/ Elastography [facility] Imaging Services [address] [place], [place] [address] ABD Limited w/ Elastography MR#: [id number] Acct: [id number] Name: MARQUITA OMALLEY I Rep #: [id number] : 1975 F 48 From: Tyson krause MD PCP: Brigette Haagen, ANESTHESIOLOGY FACULTY-C Status: REG CLI Study: ABD Limited w/ Elastography Date of Exam: 12/14 Exam# [id number] Ordering Dr: Thomas Andrew DO [id number] STUDY: ABDOMINAL ULTRASOUND - RIGHT UPPER QUADRANT; ELASTOGRAPHY REASON FOR VISIT: Female, 48 years old. Elevated liver enzymes. TECHNIQUE: Ultrasound evaluation of the right upper quadrant was performed with real-time and static cazares-scale imaging. Point quantification shear wave elastography was performed ([employer]). TECHNICAL QUALITY: Adequate. COMPARISON: Comparison is made with prior study dated October 12, 2022. FINDINGS: Liver: The liver measures 13.8 cm. There is increased echogenicity consistent with fatty infiltration. The bile ducts are within normal limits. There is hepatic color flow. The direction of portal flow is hepatopetal. There is an 8 mm x 9 mm x 4 mm cyst in the left lobe of the liver. Median liver stiffness measured 5.4 kPa. Gallbladder: Normal distended gallbladder. The gallbladder wall measures 4.0 mm. There is a negative sonographic Duarte''s sign. There is no pericholecystic fluid. There are multiple echogenic structures within the gallbladder, consistent with multiple small gallstones. Sludge is seen within the gallbladder lumen. Common Bile Duct (C.B.D.): The common bile duct measures 7.3 mm. Pancreas: There is normal echogenicity of the visualized pancreas. There is no demonstrated pancreatic mass or cyst. Right Kidney: Normal size of the right kidney. The right kidney measures 10.1 cm x 5.9 cm x 4.4 cm. Normal renal cortex. The right cortex measures 1. cm. There is no demonstrated renal mass or cyst. There is no right hydronephrosis. US/ABD Limited w/ Elastography IMPRESSION: 1. Liver stiffness measures 5.4 kPa compatible with F0-F1 (Normal to mild liver fibrosis) Metavir score. 2. Multiple small gallstones. Electronically Signed: Tyson Brooks MD at 11:05 EDT , CC: DONNIE Martin; Thomas Andrew, Packer Fuser: Signed Normal [facility] Ammoniaon 01-10-2023 Ammonia (P) [Moles/Vol] 11.0 umol/L Normal [facility] Comment on above: Order Comment: DR LUIS MOON VITD,CMP, CBCD,LIPIDDR SHANE MOON ALL LABS EXCEPT VITD Performed By: #### L 500.4050, L3400.0700, L501.6710, L500.4100, L504.2610, L3300.1200, L101.9900, L503.5510, L3100.5440, L803.2200, L3300.0700, L3100.6900, L501.9985, L3000.0375, L100.0100, L3300.0100, L800.1280, L506.1000 ####[facility] [address] [facility] [place], [place], [id number] CBC W/Diff, Automatedon 12-14 Absolute Lymph 1.80 X10 3/uL Normal 0.83-4.51 [facility] Comment on above: Order Comment: DR LUIS MOON VITD,CMP, CBCD,LIPID DR SHANE MOON ALL LABS EXCEPT VITD Performed By: #### L 500.4050, L3400.0700, L501.6710, L500.4100, L504.2610, L3300.1200, L101.9900, L503.5510, L3100.5440, L803.2200, L3300.0700, L3100.6900, L501.9985, L3000.0375, L100.0100, L3300.0100, L800.1280, L506.1000 #### [facility] [address] [place], [address] Absolute Neut 3.6 X10 3/uL Normal 2.0-7.7 [facility] Comment on above: Order Comment: DR LUIS MOON VITD,CMP, CBCD,LIPID DR SHANE MOON ALL LABS EXCEPT VITD Performed By: #### L 500.4050, L3400.0700, L501.6710, L500.4100, L504.2610, L3300.1200, L101.9900, L503.5510, L3100.5440, L803.2200, L3300.0700, L3100.6900, L501.9985, L3000.0375, L100.0100, L3300.0100, L800.1280, L506.1000 #### [facility] [address] [place], [address] Basophils/100 WBC (Bld) 0.5 % Normal 0-1 [facility] Comment on above: Order Comment: DR LUIS MOON VITD,CMP, CBCD,LIPID DR SHANE MOON ALL LABS EXCEPT VITD Performed By: #### L 500.4050, L3400.0700, L501.6710, L500.4100, L504.2610, L3300.1200, L101.9900, L503.5510, L3100.5440, L803.2200, L3300.0700, L3100.6900, L501.9985, L3000.0375, L100.0100, L3300.0100, L800.1280, L506.1000 #### [facility] [address] [place], [address] Eosinophils/100 WBC (Bld) 2.2 % Normal 0-5 [facility] Comment on above: Order Comment: DR LUIS MOON VITD,CMP, CBCD,LIPID DR SHANE MOON ALL LABS EXCEPT VITD Performed By: #### L 500.4050, L3400.0700, L501.6710, L500.4100, L504.2610, L3300.1200, L101.9900, L503.5510, L3100.5440, L803.2200, L3300.0700, L3100.6900, L501.9985, L3000.0375, L100.0100, L3300.0100, L800.1280, L506.1000 #### [facility] [address] [facility], [address] Erythrocyte distribution width (RBC) [Ratio] 12.5 % Normal 11.6-14.6 [facility] Comment on above: Order Comment: DR LUIS MOON VITD,CMP, CBCD,LIPID DR SHANE MOON ALL LABS EXCEPT VITD Performed By: #### L 500.4050, L3400.0700, L501.6710, L500.4100, L504.2610, L3300.1200, L101.9900, L503.5510, L3100.5440, L803.2200, L3300.0700, L3100.6900, L501.9985, L3000.0375, L100.0100, L3300.0100, L800.1280, L506.1000 #### [facility] [address] [facility] [place], [address] Hematocrit (Bld) [Volume fraction] 41.9 % Normal 37-47 [facility] Comment on above: Order Comment: DR LUIS MOON VITD,CMP, CBCD,LIPID DR SHANE MOON ALL LABS EXCEPT VITD Performed By: #### L 500.4050, L3400.0700, L501.6710, L500.4100, L504.2610, L3300.1200, L101.9900, L503.5510, L3100.5440, L803.2200, L3300.0700, L3100.6900, L501.9985, L3000.0375, L100.0100, L3300.0100, L800.1280, L506.1000 #### [facility] [address] [place], [address] Hemoglobin (Bld) [Mass/Vol] 14.0 g/dL Normal 12.0-15.0 [facility] Comment on above: Order Comment: DR LUIS MOON VITD,CMP, CBCD,LIPID DR SHANE MOON ALL LABS EXCEPT VITD Performed By: #### L 500.4050, L3400.0700, L501.6710, L500.4100, L504.2610, L3300.1200, L101.9900, L503.5510, L3100.5440, L803.2200, L3300.0700, L3100.6900, L501.9985, L3000.0375, L100.0100, L3300.0100, L800.1280, L506.1000 #### [facility] [address] [place], [address] IG% 0.300 Normal 0.0-0.9 [facility] Comment on above: Order Comment: DR LUIS MOON VITD,CMP, CBCD,LIPID DR SHANE MOON ALL LABS EXCEPT VITD Result Comment: IG% - Immature Granulocytes (promyelocytes, myelocytes and metamyelocytes) > 1% indicates that a LEFT SHIFT is Present. Performed By: #### L 500.4050, L3400.0700, L501.6710, L500.4100, L504.2610, L3300.1200, L101.9900, L503.5510, L3100.5440, L803.2200, L3300.0700, L3100.6900, L501.9985, L3000.0375, L100.0100, L3300.0100, L800.1280, L506.1000 #### [facility] [address] [place], [address] Lymphocytes/100 WBC (Bld) 30.3 % Normal 19-41 [facility] Comment on above: Order Comment: DR LUIS MOON VITD,CMP, CBCD,LIPID DR SHANE MOON ALL LABS EXCEPT VITD Performed By: #### L 500.4050, L3400.0700, L501.6710, L500.4100, L504.2610, L3300.1200, L101.9900, L503.5510, L3100.5440, L803.2200, L3300.0700, L3100.6900, L501.9985, L3000.0375, L100.0100, L3300.0100, L800.1280, L506.1000 #### [facility] [address] [place], [address] MCH (RBC) [Entitic mass] 29.2 pg Normal 27.0-32.0 [facility] Comment on above: Order Comment: DR LUIS MOON VITD,CMP, CBCD,LIPID DR SHANE MOON ALL LABS EXCEPT VITD Performed By: #### L 500.4050, L3400.0700, L501.6710, L500.4100, L504.2610, L3300.1200, L101.9900, L503.5510, L3100.5440, L803.2200, L3300.0700, L3100.6900, L501.9985, L3000.0375, L100.0100, L3300.0100, L800.1280, L506.1000 #### [facility] [address] [place], [address] MCHC (RBC) [Mass/Vol] 33.4 g/dL Normal 32-36 [facility] Comment on above: Order Comment: DR LUIS MOON VITD,CMP, CBCD,LIPID DR SHANE MOON ALL LABS EXCEPT VITD Performed By: #### L 500.4050, L3400.0700, L501.6710, L500.4100, L504.2610, L3300.1200, L101.9900, L503.5510, L3100.5440, L803.2200, L3300.0700, L3100.6900, L501.9985, L3000.0375, L100.0100, L3300.0100, L800.1280, L506.1000 #### [facility] [address] [place], [address] MCV (RBC) [Entitic vol] 87.5 fL Normal 81-99 [facility] Comment on above: Order Comment: DR LUIS MOON VITD,CMP, CBCD,LIPID DR SHANE MOON ALL LABS EXCEPT VITD Performed By: #### L 500.4050, L3400.0700, L501.6710, L500.4100, L504.2610, L3300.1200, L101.9900, L503.5510, L3100.5440, L803.2200, L3300.0700, L3100.6900, L501.9985, L3000.0375, L100.0100, L3300.0100, L800.1280, L506.1000 #### [facility] [address] [facility], [address] Monocytes/100 WBC (Bld) 6.6 % Normal 0-10 [facility] Comment on above: Order Comment: DR LUIS MOON VITD,CMP, CBCD,LIPID DR SHANE MOON ALL LABS EXCEPT VITD Performed By: #### L 500.4050, L3400.0700, L501.6710, L500.4100, L504.2610, L3300.1200, L101.9900, L503.5510, L3100.5440, L803.2200, L3300.0700, L3100.6900, L501.9985, L3000.0375, L100.0100, L3300.0100, L800.1280, L506.1000 #### [facility] [address] [place], [address] Neutrophils/100 WBC (Bld) 60.1 % Normal 47-70 [facility] Comment on above: Order Comment: DR LUIS MOON VITD,CMP, CBCD,LIPID DR SHANE MOON ALL LABS EXCEPT VITD Performed By: #### L 500.4050, L3400.0700, L501.6710, L500.4100, L504.2610, L3300.1200, L101.9900, L503.5510, L3100.5440, L803.2200, L3300.0700, L3100.6900, L501.9985, L3000.0375, L100.0100, L3300.0100, L800.1280, L506.1000 #### [facility] [address] [place], [place], [id number] Nucleated RBC (Bld) [#/Vol] 0 10*3/uL Normal 0-5 [facility] Comment on above: Order Comment: DR LUIS MOON VITD,CMP, CBCD,LIPID DR SHANE MOON ALL LABS EXCEPT VITD Performed By: #### L 500.4050, L3400.0700, L501.6710, L500.4100, L504.2610, L3300.1200, L101.9900, L503.5510, L3100.5440, L803.2200, L3300.0700, L3100.6900, L501.9985, L3000.0375, L100.0100, L3300.0100, L800.1280, L506.1000 #### [facility] [address] [facility]. [place], [place], [id number] Platelet mean volume (Bld) [Entitic vol] 11.3 fL Normal 6.2-12.0 [facility] Comment on above: Order Comment: DR LUIS MOON VITD,CMP, CBCD,LIPID DR SHANE MOON ALL LABS EXCEPT VITD Performed By: #### L 500.4050, L3400.0700, L501.6710, L500.4100, L504.2610, L3300.1200, L101.9900, L503.5510, L3100.5440, L803.2200, L3300.0700, L3100.6900, L501.9985, L3000.0375, L100.0100, L3300.0100, L800.1280, L506.1000 #### [facility] [address] [place], [address] (893) Platelets (Bld) [#/Vol] 233 10*3/uL Normal 150-450 [facility] Comment on above: Order Comment: DR LUIS MOON VITD,CMP, CBCD,LIPID DR SHANE MOON ALL LABS EXCEPT VITD Performed By: #### L 500.4050, L3400.0700, L501.6710, L500.4100, L504.2610, L3300.1200, L101.9900, L503.5510, L3100.5440, L803.2200, L3300.0700, L3100.6900, L501.9985, L3000.0375, L100.0100, L3300.0100, L800.1280, L506.1000 #### [facility] [address] [place], [place], [phone] (804) RBC (Bld) [#/Vol] 4.79 10*6/uL Normal 4.2-5.4 [facility] Comment on above: Order Comment: DR LUIS MOON VITD,CMP, CBCD,LIPID DR SHANE MOON ALL LABS EXCEPT VITD Performed By: #### L 500.4050, L3400.0700, L501.6710, L500.4100, L504.2610, L3300.1200, L101.9900, L503.5510, L3100.5440, L803.2200, L3300.0700, L3100.6900, L501.9985, L3000.0375, L100.0100, L3300.0100, L800.1280, L506.1000 #### [facility] [address] [place], [place], [phone] (723) RDW SD 39.9 fl Normal 35.1-43.9 [facility] Comment on above: Order Comment: DR LUIS MOON VITD,CMP, CBCD,LIPID DR SHANE MOON ALL LABS EXCEPT VITD Performed By: #### L 500.4050, L3400.0700, L501.6710, L500.4100, L504.2610, L3300.1200, L101.9900, L503.5510, L3100.5440, L803.2200, L3300.0700, L3100.6900, L501.9985, L3000.0375, L100.0100, L3300.0100, L800.1280, L506.1000 #### [facility] [address] [facility] [place], [place], [phone] WBC (Bld) [#/Vol] 5.9 10*3/uL Normal 4.4-11.0 [facility] Comment on above: Order Comment: DR LUIS MOON VITD,CMP, CBCD,LIPID DR SHANE MOON ALL LABS EXCEPT VITD Performed By: #### L 500.4050, L3400.0700, L501.6710, L500.4100, L504.2610, L3300.1200, L101.9900, L503.5510, L3100.5440, L803.2200, L3300.0700, L3100.6900, L501.9985, L3000.0375, L100.0100, L3300.0100, L800.1280, L506.1000 #### [facility] [address] [place], [place], [phone] CRPon 01-11-2024 C-REACTIVE PROT < 2.90 Normal 0.0-3.0 [facility] Comment on above: Order Comment: DR LUIS MOON VITD,CMP, CBCD,LIPIDDR SHANE MOON ALL LABS EXCEPT VITD1 Result Comment: C-Re active Protein (CRP) provides useful information for the diagnosis, therapy and monitoring of inflammatory processes and associated diseases. For the evaluation of Relative Risk for Cardiovascular Disease, a High Sensitivity CRP (HSCRP) should be ordered. Performed By: #### L 500.4050, L3400.0700, L501.6710, L500.4100, L504.2610, L3300.1200, L101.9900, L503.5510, L3100.5440, L803.2200, L3300.0700, L3100.6900, L501.9985, L3000.0375, L100.0100, L3300.0100, L800.1280, L506.1000 ####[facility] [address] [place], [address] Comprehensive [facility] 01-11-2024 Albumin [Mass/Vol] 3.4 g/dL Normal 3.2-5.0 [facility] Comment on above: Order Comment: DR LUIS MOON VITD,CMP, CBCD,LIPIDDR SHANE MOON ALL LABS EXCEPT VITD1 Performed By: #### L 500.4050, L3400.0700, L501.6710, L500.4100, L504.2610, L3300.1200, L101.9900, L503.5510, L3100.5440, L803.2200, L3300.0700, L3100.6900, L501.9985, L3000.0375, L100.0100, L3300.0100, L800.1280, L506.1000 ####[facility] [address] [place], [place], [phone] Albumin/Globulin [Mass ratio] 0.9 {ratio} Normal 0.9-2.4 [facility] Comment on above: Order Comment: DR LUIS MOON VITD,CMP, CBCD,LIPIDDR SHANE MOON ALL LABS EXCEPT VITD1 Performed By: #### L 500.4050, L3400.0700, L501.6710, L500.4100, L504.2610, L3300.1200, L101.9900, L503.5510, L3100.5440, L803.2200, L3300.0700, L3100.6900, L501.9985, L3000.0375, L100.0100, L3300.0100, L800.1280, L506.1000 ####[facility] [address] [place], [address] ALK P 80 U/L Normal 45-117 [facility] Comment on above: Order Comment: DR LUIS MOON VITD,CMP, CBCD,LIPIDDR FREINDS WANTS ALL LABS EXCEPT VITD1 Performed By: #### L 500.4050, L3400.0700, L501.6710, L500.4100, L504.2610, L3300.1200, L101.9900, L503.5510, L3100.5440, L803.2200, L3300.0700, L3100.6900, L501.9985, L3000.0375, L100.0100, L3300.0100, L800.1280, L506.1000 ####[facility] [address], [address] ALT [Catalytic activity/Vol] 20 U/L Normal 13-56 [facility] Comment on above: Order Comment: DR LUIS MOON VITD,CMP, CBCD,LIPIDDR FREINDS WANTS ALL LABS EXCEPT VITD1 Performed By: #### L 500.4050, L3400.0700, L501.6710, L500.4100, L504.2610, L3300.1200, L101.9900, L503.5510, L3100.5440, L803.2200, L3300.0700, L3100.6900, L501.9985, L3000.0375, L100.0100, L3300.0100, L800.1280, L506.1000 ####[facility] [address] [place], [place], [phone] AST [Catalytic activity/Vol] 11 U/L Low 15-37 [facility] Comment on above: Order Comment: DR LUIS MOON VITD,CMP, CBCD,LIPIDDR FREINDS WANTS ALL LABS EXCEPT VITD1 Performed By: #### L 500.4050, L3400.0700, L501.6710, L500.4100, L504.2610, L3300.1200, L101.9900, L503.5510, L3100.5440, L803.2200, L3300.0700, L3100.6900, L501.9985, L3000.0375, L100.0100, L3300.0100, L800.1280, L506.1000 ####[facility] [address] [place], [address] Bilirubin [Mass/Vol] 0.60 mg/dL Normal 0.20-1.00 [facility] Comment on above: Order Comment: DR LUIS DE LA ROSA WANTS VITD,CMP, CBCD,LIPIDDR FREINDS WANTS ALL LABS EXCEPT VITD1 Result Comment: For patients on eltrombopag therapy, use of Dimension [place] TBIL is not recommended. Performed By: #### L 500.4050, L3400.0700, L501.6710, L500.4100, L504.2610, L3300.1200, L101.9900, L503.5510, L3100.5440, L803.2200, L3300.0700, L3100.6900, L501.9985, L3000.0375, L100.0100, L3300.0100, L800.1280, L506.1000 ####[facility] [address] [place], [place], [phone] BUN/CRE 12.6 RATIO Normal 10-20 [facility] Comment on above: Order Comment: DR LUIS DE LA ROSA WANTS VITD,CMP, CBCD,LIPIDDR FREINDS WANTS ALL LABS EXCEPT VITD1 Performed By: #### L 500.4050, L3400.0700, L501.6710, L500.4100, L504.2610, L3300.1200, L101.9900, L503.5510, L3100.5440, L803.2200, L3300.0700, L3100.6900, L501.9985, L3000.0375, L100.0100, L3300.0100, L800.1280, L506.1000 ####[facility] [address] [place], [place], [phone] CA,Total 9.3 mg/dL Normal 8.5-10.1 [facility] Comment on above: Order Comment: DR LUIS DE LA ROSA WANTS VITD,CMP, CBCD,LIPIDDR FREINDS WANTS ALL LABS EXCEPT VITD1 Performed By: #### L 500.4050, L3400.0700, L501.6710, L500.4100, L504.2610, L3300.1200, L101.9900, L503.5510, L3100.5440, L803.2200, L3300.0700, L3100.6900, L501.9985, L3000.0375, L100.0100, L3300.0100, L800.1280, L506.1000 ####[facility] [address] [place], [place], [phone](201) Chloride [Moles/Vol] 108 mmol/L High 98-107 [facility] Comment on above: Order Comment: DR LUIS DEL A ROSA WANTS VITD,CMP, CBCD,LIPIDDR FREINDS WANTS ALL LABS EXCEPT VITD1 Performed By: #### L 500.4050, L3400.0700, L501.6710, L500.4100, L504.2610, L3300.1200, L101.9900, L503.5510, L3100.5440, L803.2200, L3300.0700, L3100.6900, L501.9985, L3000.0375, L100.0100, L3300.0100, L800.1280, L506.1000 ####[facility] [address] [place], [place], [phone](616) CO2 [Moles/Vol] 27.0 mmol/L Normal 21.0-32.0 [facility] Comment on above: Order Comment: DR LUIS DE LA ROSA WANTS VITD,CMP, CBCD,LIPIDDR FREINDS WANTS ALL LABS EXCEPT VITD1 Performed By: #### L 500.4050, L3400.0700, L501.6710, L500.4100, L504.2610, L3300.1200, L101.9900, L503.5510, L3100.5440, L803.2200, L3300.0700, L3100.6900, L501.9985, L3000.0375, L100.0100, L3300.0100, L800.1280, L506.1000 ####[facility] [address] [place], [place], [phone] Creatinine [Mass/Vol] 0.72 mg/dL Normal 0.55-1.02 [facility] Comment on above: Order Comment: DR LUIS DE LA ROSA WANTS VITD,CMP, CBCD,LIPIDDR FREINDS WANTS ALL LABS EXCEPT VITD1 Result Comment: The validity of the calculated GFR GFRAA in patients over 70 years has not been determined. Clinical correlation is essential. Performed By: #### L 500.4050, L3400.0700, L501.6710, L500.4100, L504.2610, L3300.1200, L101.9900, L503.5510, L3100.5440, L803.2200, L3300.0700, L3100.6900, L501.9985, L3000.0375, L100.0100, L3300.0100, L800.1280, L506.1000 ####[facility] [address] [place], [place], [phone] EST GFR - AA 111 mL/min Normal >60 [facility] Comment on above: Order Comment: DR ULIS DE LA ROSA WANTS VITD,CMP, CBCD,LIPIDDR FREINDS WANTS ALL LABS EXCEPT VITD1 Result Comment: Afri can Taj[place] GFR Calc Performed By: #### L 500.4050, L3400.0700, L501.6710, L500.4100, L504.2610, L3300.1200, L101.9900, L503.5510, L3100.5440, L803.2200, L3300.0700, L3100.6900, L501.9985, L3000.0375, L100.0100, L3300.0100, L800.1280, L506.1000 ####[facility] [address] [place], [place], [phone](453) GAP 3 Low 5-15 [facility] Comment on above: Order Comment: DR LUIS DE LA ROSA WANTS VITD,CMP, CBCD,LIPIDDR FREINDS WANTS ALL LABS EXCEPT VITD1 Performed By: #### L 500.4050, L3400.0700, L501.6710, L500.4100, L504.2610, L3300.1200, L101.9900, L503.5510, L3100.5440, L803.2200, L3300.0700, L3100.6900, L501.9985, L3000.0375, L100.0100, L3300.0100, L800.1280, L506.1000 ####[facility] [address] [place], [place], [phone] GFR/1.73 sq M.predicted among non-blacks MDRD (S/P/Bld) [Vol rate/Area] 92 mL/min/{1.73_m2} Normal >60 [facility] Comment on above: Order Comment: DR LUIS DE LA ROSA WANTS VITD,CMP, CBCD,LIPIDDR SHANE WANTS ALL LABS EXCEPT VITD1 Result Comment: Non- GFR Calc Performed By: #### L 500.4050, L3400.0700, L501.6710, L500.4100, L504.2610, L3300.1200, L101.9900, L503.5510, L3100.5440, L803.2200, L3300.0700, L3100.6900, L501.9985, L3000.0375, L100.0100, L3300.0100, L800.1280, L506.1000 ####[facility] [address] [place], [place], [phone](511) Globulin (S) [Mass/Vol] 3.6 g/dL Normal 2.2-4.2 [facility] Comment on above: Order Comment: DR LUIS DE LA ROSA WANTS VITD,CMP, CBCD,LIPIDDR FREINDS WANTS ALL LABS EXCEPT VITD1 Performed By: #### L 500.4050, L3400.0700, L501.6710, L500.4100, L504.2610, L3300.1200, L101.9900, L503.5510, L3100.5440, L803.2200, L3300.0700, L3100.6900, L501.9985, L3000.0375, L100.0100, L3300.0100, L800.1280, L506.1000 ####[facility] [address] [place], [place], [phone] Glucose [Mass/Vol] 92 mg/dL Normal 74-106 [facility] Comment on above: Order Comment: DR LUIS MOON VITD,CMP, CBCD,LIPIDDR FREINDS WANTS ALL LABS EXCEPT VITD1 Performed By: #### L 500.4050, L3400.0700, L501.6710, L500.4100, L504.2610, L3300.1200, L101.9900, L503.5510, L3100.5440, L803.2200, L3300.0700, L3100.6900, L501.9985, L3000.0375, L100.0100, L3300.0100, L800.1280, L506.1000 ####[facility] [address] [place], [place], [phone] Potassium [Moles/Vol] 3.3 mmol/L Low 3.5-5.1 [facility] Comment on above: Order Comment: DR LUIS MOON VITD,CMP, CBCD,LIPIDDR FREINDS WANTS ALL LABS EXCEPT VITD1 Performed By: #### L 500.4050, L3400.0700, L501.6710, L500.4100, L504.2610, L3300.1200, L101.9900, L503.5510, L3100.5440, L803.2200, L3300.0700, L3100.6900, L501.9985, L3000.0375, L100.0100, L3300.0100, L800.1280, L506.1000 ####[facility] [address] [place], [place], [phone] Sodium [Moles/Vol] 138 mmol/L Normal 136-145 [facility] Comment on above: Order Comment: DR LUIS MOON VITD,CMP, CBCD,LIPIDDR FREINDS WANTS ALL LABS EXCEPT VITD1 Performed By: #### L 500.4050, L3400.0700, L501.6710, L500.4100, L504.2610, L3300.1200, L101.9900, L503.5510, L3100.5440, L803.2200, L3300.0700, L3100.6900, L501.9985, L3000.0375, L100.0100, L3300.0100, L800.1280, L506.1000 ####[facility] [address] [place], [place], [phone](418) T PROT 7.0 g/dL Normal 6.4-8.2 [facility] Comment on above: Order Comment: DR LUIS MOON VITD,CMP, CBCD,LIPIDDR FREINDS WANTS ALL LABS EXCEPT VITD1 Performed By: #### L 500.4050, L3400.0700, L501.6710, L500.4100, L504.2610, L3300.1200, L101.9900, L503.5510, L3100.5440, L803.2200, L3300.0700, L3100.6900, L501.9985, L3000.0375, L100.0100, L3300.0100, L800.1280, L506.1000 ####[facility] [address] [place], [place], [phone](749) Urea nitrogen [Mass/Vol] 9 mg/dL Normal 7-18 [facility] Comment on above: Order Comment: DR SMITH AGEN WANTS VITD,CMP, CBCD,LIPIDDR FREINDS WANTS ALL LABS EXCEPT VITD1 Performed By: #### L 500.4050, L3400.0700, L501.6710, L500.4100, L504.2610, L3300.1200, L101.9900, L503.5510, L3100.5440, L803.2200, L3300.0700, L3100.6900, L501.9985, L3000.0375, L100.0100, L3300.0100, L800.1280, L506.1000 ####[facility] [address] [place], [address] Erythrocyte Sed Rateon 01-10 SED RATE 16 mm/hr Normal 0-30 [facility] Comment on above: Order Comment: DR LUIS DE LA ROSA WANTS VITD,CMP, CBCD,LIPIDDR FREINDS WANTS ALL LABS EXCEPT VITD Performed By: #### L 500.4050, L3400.0700, L501.6710, L500.4100, L504.2610, L3300.1200, L101.9900, L503.5510, L3100.5440, L803.2200, L3300.0700, L3100.6900, L501.9985, L3000.0375, L100.0100, L3300.0100, L800.1280, L506.1000 ####[facility] [address] [place], [address] Hemoglobin A1con 01-11-2024 HbA1c (Bld) [Mass fraction] 5.0 % Normal 3.8-5.6 [facility] Comment on above: Order Comment: DR LUIS DE LA ROSA WANTS VITD,CMP, CBCD,LIPIDDR FREINDS WANTS ALL LABS EXCEPT VITD Result Comment: Norm al < 5.7 % Prediabetic 5.7 - 6.4 % Diabetic >or= 6.5 % Please note range changes. Performed By: #### L 500.4050, L3400.0700, L501.6710, L500.4100, L504.2610, L3300.1200, L101.9900, L503.5510, L3100.5440, L803.2200, L3300.0700, L3100.6900, L501.9985, L3000.0375, L100.0100, L3300.0100, L800.1280, L506.1000 ####[facility] [address] [place], [place], [phone] LDHon 01-11-2024 LDH 129 U/L Normal 84-246 [facility] Comment on above: Order Comment: DR LUIS MOON VITD,CMP, CBCD,LIPIDDR SHANE WANTS ALL LABS EXCEPT VITD1 Performed By: #### L 500.4050, L3400.0700, L501.6710, L500.4100, L504.2610, L3300.1200, L101.9900, L503.5510, L3100.5440, L803.2200, L3300.0700, L3100.6900, L501.9985, L3000.0375, L100.0100, L3300.0100, L800.1280, L506.1000 ####[facility] [address] [facility] [place], [place], [phone] Lipid Profileon 01-11-2024 Cholesterol [Mass/Vol] 169 mg/dL Normal 200 [facility] Comment on above: Order Comment: DR LUIS MOON VITD,CMP, CBCD,LIPIDDR FREFRANKIE WANTS ALL LABS EXCEPT VITD1 Result Comment: <200 mg/dL Desirable 200-240 mg/dL Borderline >240 mg/dL High Risk Performed By: #### L 500.4050, L3400.0700, L501.6710, L500.4100, L504.2610, L3300.1200, L101.9900, L503.5510, L3100.5440, L803.2200, L3300.0700, L3100.6900, L501.9985, L3000.0375, L100.0100, L3300.0100, L800.1280, L506.1000 ####[facility] [address] [place], [address] Cholesterol in HDL [Mass/Vol] 41 mg/dL Normal [facility] Comment on above: Order Comment: DR LUIS DE LA ROSA WANTS VITD,CMP, CBCD,LIPIDDR FREINDS WANTS ALL LABS EXCEPT VITD1 Result Comment: The drugs N-Acetylcysteine and Metamizole may falsely depress this assay. Reference Range HDL <40 mg/dL Low HDL Cholesterol HDL >or= 60 mg/dL High HDL Cholesterol Performed By: #### L 500.4050, L3400.0700, L501.6710, L500.4100, L504.2610, L3300.1200, L101.9900, L503.5510, L3100.5440, L803.2200, L3300.0700, L3100.6900, L501.9985, L3000.0375, L100.0100, L3300.0100, L800.1280, L506.1000 ####[facility] [address] [place], [address] Cholesterol in LDL [Mass/Vol] 101 mg/dL Normal 0-130 [facility] Comment on above: Order Comment: DR LUIS DE LA ROSA WANTS VITD,CMP, CBCD,LIPIDDR SHANE WANTS ALL LABS EXCEPT VITD1 Performed By: #### L 500.4050, L3400.0700, L501.6710, L500.4100, L504.2610, L3300.1200, L101.9900, L503.5510, L3100.5440, L803.2200, L3300.0700, L3100.6900, L501.9985, L3000.0375, L100.0100, L3300.0100, L800.1280, L506.1000 ####[facility] [address] [place], [address] Cholesterol in VLDL [Mass/Vol] 27 mg/dL Normal 5-40 [facility] Comment on above: Order Comment: DR LUIS MOON VITD,CMP, CBCD,LIPIDDR FREFRANKIE WANTS ALL LABS EXCEPT VITD1 Performed By: #### L 500.4050, L3400.0700, L501.6710, L500.4100, L504.2610, L3300.1200, L101.9900, L503.5510, L3100.5440, L803.2200, L3300.0700, L3100.6900, L501.9985, L3000.0375, L100.0100, L3300.0100, L800.1280, L506.1000 ####[facility] [address] [facility] [place], [place], [phone] Triglyceride [Mass/Vol] 135 mg/dL Normal [facility] Comment on above: Order Comment: DR LUIS MOON VITD,CMP, CBCD,LIPIDDR SHANE WANTS ALL LABS EXCEPT VITD1 Result Comment: The drugs N-Acetylcysteine and Metamizole may falsely depress this assay. Serum Triglycerides Reference Interval Normal <150 mg/dL Borderline high 150 - 199 mg/dL High 200 - 499 mg/dL Very High > or = 500 mg/dL Performed By: #### L 500.4050, L3400.0700, L501.6710, L500.4100, L504.2610, L3300.1200, L101.9900, L503.5510, L3100.5440, L803.2200, L3300.0700, L3100.6900, L501.9985, L3000.0375, L100.0100, L3300.0100, L800.1280, L506.1000 ####[facility] [address] [facility] [place], [place], [phone] Vitamin D,25 Hydroxyon 01-10 Vitamin D 25-OH 48.9 ng/mL Normal [facility] Comment on above: Order Comment: DR LUIS MOON VITD,CMP, CBCD,LIPIDDR FREFRANKIE WANTS ALL LABS EXCEPT VITD Result Comment: Cynthia min D 25(OH) Status Range Deficiency <20 ng/mL (50nmol/L) Insufficiency 20 - 30 ng/mL (50 - 75 nmol/L) Sufficiency 30 - 100 ng/mL (75 - 250 nmol/L) Toxicity >100 ng/mL (>250 nmol/L) Performed By: #### L 500.4050, L3400.0700, L501.6710, L500.4100, L504.2610, L3300.1200, L101.9900, L503.5510, L3100.5440, L803.2200, L3300.0700, L3100.6900, L501.9985, L3000.0375, L100.0100, L3300.0100, L800.1280, L506.1000 ####[facility] [address] [place], [address] Gastroenterology Visit Repor ton 01-04-2024 Gastroenterology Visit Report [facility]astroenterology [address] [place] [address] OFFICE VISIT Date of Service: 01/04/24 MR#: [id number] Acct: [id number] Name: MARQUITA OMALLEY I Rep #: [id number] : 1975 Provider: Thomas Andrew DO Age/Sex: 48/F Location: [facility] Status: Signed Intake Vital Signs 07/24/23 09:31 Height 5 ft 5 in Weight: 228 lb BMI 37.9 Intake Visit Reasons: 6 M FU Allergies pregabalin (From Lyrica) Allergy (Verified 07/27/21 10:06) high bp Sulfa (Sulfonamide Antibiotics) Allergy (Verified 07/27/21 10:06) Hives adhesive tape (plastic tape) Adverse Reaction (Verified 04/05/22 09:05) Other Medications ???Medication ???Instructions ???Recorded ???Confirmed ???Type albuterol sulfate 90 mcg/actuation 1 - 2 puff inhalation Q6H PRN PRN 01/16/19 01/04/24 History aerosol inhaler Sob /Or Wheezing trazodone 50 mg tablet 25 - 150 mg PO QHS sleep 01/16/19 01/04/24 History lorazepam 0.5 mg tablet 0.5 mg PO BID PRN PRN Anxiety 12/13/20 01/04/24 History famotidine 20 mg tablet 20 mg PO BID 01/04/24 01/04/24 History PFSH Medical History (Updated 01/30/23 @ 09:38 by Chana Chambers) Elevated LFTs Seasonal allergies Wears glasses Depression Anxiety Alcohol use Low iron Excessive bleeding Migraine headache Loss of consciousness Gastric reflux Former smoker Obstructive sleep apnea CPAP (continuous positive airway pressure) dependence Asthma History of wrist fracture Back pain Surgical History H/O wrist surgery History of hysterectomy History of tubal ligation History of tonsillectomy History of wisdom tooth extraction History of discectomy History of bilateral breast reduction surgery History of appendectomy Family History Father Hypertension Mother Migraines Sister Migraines Grandmother Diabetes Social History household members: children housing: house number of children: 3 current occupational status: employed 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 PCP OV ? Biochemical CBC, CMP, t.bili, hepatitis ? AST T291-LNK H171-AP 91, plt 227 Fib4 2.38 ? US RUQ 2.3.23 fatty liver infiltration; 4mm gallbladder polyp. *BGI established 5.5.23 no history of IV drug use, hepatitis infection, blood transfusion, anti- arrhythmic medication. FH without liver disease. She is obese and is undergoing workup for gastric sleeve; she is borderline DMII. Biochemical CBC, CMP, LDH, haptoglobin, ceruloplasmin, copper, ammonia, AFP, ARMEN, A1c, lipid, coag, USAMA comp, AMA, hepatitis without pertinent abnormality. ESR H35, CRP H13.10, AST J348-WLL H186-AP 93, Vit D 1,25 H84.4, cANCA H1:20, ASM H27, ferritin H333 Contact 09.20.22 repeat labs in approximately four months. Work on weight loss and dietary management until then. No medications changes at this time. Will call with elastography results. ? US RUQ and Elastography 6.1.23 hepatic measurement 17.4cm with fatty infiltration, stiffness 6.8 kPa; gallbladder polyp [id number] adherent to gallbladder wall Contact .8.23 with US/elastography results. Reports weight loss 15lbs. She will repeat bloodwork just prior to next appointment. OV 01.30.23 reports she is doing well at this time without concerns to address. ? Biochemical ESR, LFT, ASM, ANCA, ferritin WNL. ? CRP H9.78 Contact 02.02.23 with results; very appreciative OV 07.24.23- Pt reports since last visit she had gastric sleeve at [facility] 05/10/23. Has done well with recovery. Has lost 26lbs since surgery. Asking if she still needs to continue with Ursodiol. No other abdominal pain, heartburn. BM are normal daily but can vary with diet. OV 8.23.24 pt reports that she is feeling well and denies GI symptoms of concern at this time. Continues Famotidine 20mg BID. ROS Const Constitutional: Positive for weight change (weight loss); No fatigue or fever(s) ENT ENT: No difficulty swallowing Gastro GI: Positive for heartburn; No abdominal pain, belching, bloating, change in b (more content not included)... Normal [facility] SPIROMETRY - BASELINE AND PO ST DILATORon 10-05-2023 BTP72-95% POST (L/S) 2.96 L/S [facility] DUR05-15% PRE (L/S) 2.49 L/S [facility] FEV1 PRE (L) 2.99 L [facility] FEV1/FVC POST (%) 81 % [facility] FEV1/FVC PRE (%) 76 % [facility] FEV1_POST (L) 3.14 L [facility] FVC POST (L) 3.87 L [facility] FVC PRE (L) 3.92 L [facility] PEF POST (L/S) 6.86 L/S [facility] PEF PRE (L/S) 6.63 L/S [facility] [address] [facility], [place] [address] Test Date: 2023-10-05 Pat Name: MARQUITA OMALLEY Department: Room: Gender: Female 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 No contraindications or sensitivities were noted. Meds taken: None before testing. 2 puffs Albuterol (180 mcg) delivered by MDI via holding chamber. HR pre = 85/min, HR post = 85/min. Current ATS/ERS acceptability and repeatability standards for spirometry met. Start of test and EOFE criteria met. IMPRESSION: Spirometry is normal. There was not a significant bronchodilator response. Electronically Signed On 10-05-2023 9:37:34 EDT by Yadira Mendoza MD ID: [id number] Name: MARQUITA [place] I Race: White Ht: 64.02 in Wt: 213.00 lbs Age: 48 Gender: Female : 1975 Dx: Unspecified asthma, uncomplicated Smoking Hx: Non-smoker Doctor: BRIGETTE MARTIN Test Date: 10/05/2023 Site: [facility]: Tanja Beckford PRE-BRONCH POST-BRONCH Pre LLN Pred ULN %Pred Post %Pred %Chg SPIROMETRY FVC (L) 3.92 2.43 3.25 4.10 120 3.87 118 -1 FEV1 (L) 2.99 1.97 2.66 3.31 112 3.14 117 5 FEV1/FVC 0.76 0.70 0.81 0.90 93 0.81 99 6 PEF L/s (L/sec) 6.63 5.06 6.77 8.48 97 6.86 101 3 FEF50 (L/sec) 3.18 2.00 3.61 5.21 88 3.66 101 15 FIF50 (L/sec) 6.64 7.06 6 FEF50/FIF50 0.48 90-100 0.52 8 FIVC (L) 3.73 3.68 -1 LHV83-92 (L/sec) 2.49 1.58 2.78 4.30 89 2.96 106 18 Time (sec) 9.68 8.70 -10 FET PEF (sec) 0.07 0.11 43 LYNETTE (L) 0.07 0.08 9 Vol Extrap % (%) 2 2 10 Comments: Medications and Allergies were reviewed for possible drug interactions per policy. No contraindications or sensitivities were noted. Meds taken: None before testing. 2 puffs Albuterol (180 mcg) delivered by MDI via holding chamber. HR pre = 85/min, HR post = 85/min. Current ATS/ERS acceptability and repeatability standards for spirometry met. Start of test and EOFE criteria met. PULMONARY FUNCTION LAB [facility] Breast Screeningon 2023 IMPRESSION: BENIGN FINDING There is no mammographic evidence of malignancy. A 1 year screening mammogram is recommended. Ricky rojas/cocorad:09/19/2023 10:42:41 Chestnut Tanner(s): RT Froy([place])(M), [facility] letter sent: Normal over 40 Mammogram BI-RADS: 2 Benign finding Multiple national specialty organizations have released breast cancer screening guidelines for women at average risk for developing breast cancer - guidelines that are based on both evidence and opinion, yet differ on when to start and how often to screen for breast cancer. With representation from Breast Imaging, Internal Medicine, Women's Health, Family Medicine, and Medical/Surgical Oncology, the [facility] has carefully reviewed the data and reached the following consensus: 1) All women should engage in shared decision-making with their providers to decide when to start and how often to screen; 2) All women should have the opportunity to start screening mammography at age 40; 3) For women ages 45-55, we recommend annual screening mammograms; 4) For women ages 55 and over, we support both the transition from an annual to a biennial interval if this aligns more with patient's values and preferences, or continuation with annual screening; 5) All women should discuss with their providers when to stop screening mammograms. Packer Fuser: Kam Transcribe Date/Time: Sep 19 2023 7:46A Dictated by: RICKY OVIEDO MD This examination was interpreted and the report reviewed and electronically signed by: RICKY OVIEDO MD on Sep 19 2023 10:42AM [facility] DIVISION OF RADIOLOGY * * *Final Report* * * DATE OF EXAM: Sep 19 2023 8:01AM [facility] 0581 - IRIS SCREENING / PROCEDURE REASON: Encounter for screening mammogram for breast cancer * * * * Physician Interpretation * * * * RESULT: #[id number] - IRIS SCREENING BILATERAL DIGITAL SCREENING MAMMOGRAM WITH CAD: 09/19/2023 HISTORY: /Screening Mammogram - patient reports NO breast symptoms /priors available for comparison Encounter For Screening Mammogram For Breast Cancer. RESULT: TECHNIQUE: The study was acquired using full field digital technology and interpreted from soft copy. Current study was also evaluated with a Computer Aided Detection (CAD). Comparison is made to exams dated: 01/09/2022 mammogram, 01/04/2021 mammogram, 02/23/2020 mammogram - [facility], and 01/02/2019 mammogram - [facility]. There are scattered areas of fibroglandular density. There are benign post operative findings in both breasts. No significant masses, calcifications, or other findings are seen in either breast. There has been no significant interval change. DIVISION [facility] RADIOLOGY [facility] * * *Final Report* * * DATE OF EXAM: Sep 19 2023 8:01AM [facility] 0581 - IRIS SCREENING / PROCEDURE REASON: Encounter for screening mammogram for breast cancer * * * * Physician Interpretation * * * * RESULT: #[id number] - IRIS SCREENING BILATERAL DIGITAL SCREENING MAMMOGRAM WITH CAD: 09/19/2023 HISTORY: /Screening Mammogram - patient reports NO breast symptoms /priors available for comparison Encounter For Screening Mammogram For Breast Cancer. RESULT: TECHNIQUE: The study was acquired using full field digital technology and interpreted from soft copy. Current study was also evaluated with a Computer Aided Detection (CAD). Comparison is made to exams dated: 01/09/2022 mammogram, 01/04/2021 mammogram, 02/23/2020 mammogram - [facility], and 01/02/2019 mammogram - [facility]. There are scattered areas of fibroglandular density. There are benign post operative findings in both breasts. No significant masses, calcifications, or other findings are seen in either breast. There has been no significant interval change. IMPRESSION IMPRESSION: BENIGN FINDING There is no mammographic evidence of malignancy. A 1 year screening mammogram is recommended. Ricky rojas/kam:09/19/2023 10:42:41 Chestnut Tanner(s): RT Froy(R)(M), [facility] letter sent: Normal over 40 Mammogram BI-RADS: 2 Benign finding Multiple national specialty organizations have released breast cancer screening guidelines for women at average risk for developing breast cancer - guidelines that are based on both evidence and opinion, yet differ on when to start and how often to screen for breast cancer. With representation from Breast Imaging, Internal Medicine, Women's Health, Family Medicine, and Medical/Surgical Oncology, the [facility] has carefully reviewed the data and reached the following consensus: 1) All women should engage in shared decision-making with their providers to decide when to start and how often to screen; 2) All women should have the opportunity to start screening mammography at age 40; 3) For women ages 45-55, we recommend annual screening mammograms; 4) For women ages 55 and over, we support both the transition from an annual to a biennial interval if this aligns more with patient's values and preferences, or continuation with annual screening; 5) All women should discuss with their providers when to stop screening mammograms. Packer Fuser: Kam Transcribe Date/Time: Sep 19 2023 7:46A Dictated by: RICKY OVIEDO MD This examination was interpreted and the report reviewed and electronically signed by: RICKY OVIEDO MD on Sep 19 2023 10:42AM EST [facility] Radiology Study [facility]narrative[facility] Breast ScreeningOrdered B y: [facility] Provider on 09-19-2023 [facility] XR Chest PA and Lateralon IMPRESSION: No acute radiographic abnormality. Packer Fuser: MATT Transcribe Date/Time: Feb 13 2023 9:26A Dictated by : GOERGIA SCHNEIDER MD This examination was interpreted and the report reviewed and electronically signed by: GEORGIA SCHNEIDER MD on Feb 13 2023 9:26AM EST DIVISION OF RADIOLOGY * * *Final Report* * * DATE OF EXAM: Feb 13 2023 9:15AM [facility] 5291 - XR CHEST 2V FRONTAL/LAT / PROCEDURE REASON: multiple diagnoses * * * * Physician Interpretation * * * * EXAMINATION: CHEST RADIOGRAPH (2 VIEW FRONTAL & LATERAL) CLINICAL HISTORY: Class 3 severe obesity with serious comorbidity and body mass index (BMI) of 40.0 to 44.9 in adult, unspecified obesity type (HCC) MQ: XC2_6 EXAM DATE/TIME: 02/13/2023 9:15 AM COMPARISON: No relevant prior studies available. RESULT: Lines, tubes, and devices: None. Lungs and pleura: No consolidation. No lung mass. No pleural effusion. No pneumothorax. Cardiomediastinal silhouette: Normal cardiomediastinal silhouette. Bones and soft tissues: Unremarkable. DIVISION OF RADIOLOGY Provider, [facility] - 02/13/2023 * * *Final Report* * * DATE OF EXAM: Feb 13 2023 9:15AM [facility] 5291 - XR CHEST 2V FRONTAL/LAT / PROCEDURE REASON: multiple diagnoses * * * * Physician Interpretation * * * * EXAMINATION: CHEST RADIOGRAPH (2 VIEW FRONTAL & LATERAL) CLINICAL HISTORY: Class 3 severe obesity with serious comorbidity and body mass index (BMI) of 40.0 to 44.9 in adult, unspecified obesity type (HCC) MQ: XC2_6 EXAM DATE/TIME: 02/13/2023 9:15 AM COMPARISON: No relevant prior studies available. RESULT: Lines, tubes, and devices: None. Lungs and pleura: No consolidation. No lung mass. No pleural effusion. No pneumothorax. Cardiomediastinal silhouette: Normal cardiomediastinal silhouette. Bones and soft tissues: Unremarkable. IMPRESSION IMPRESSION: No acute radiographic abnormality. Packer Fuser: PSCB Transcribe Date/Time: Feb 13 2023 9:26A Dictated by : GEORGIA SCHNEIDER MD This examination was interpreted and the report reviewed and electronically signed by: GEORGIA SCHNEIDER MD on Feb 13 2023 9:26AM EST [facility] Radiology Study observation (narrative) [facility] XR Chest PA and LateralOrder ed By: [facility] Provider on 02-13-2023 [facility] Atypical perinuclear antineu trophil cytoplasmic antibodies measurementOrdered By: Thomas Andrew on 01-25-2023 Neutrophil cytoplasmic Ab.perinuclear.atypical IF (S) [Titer] <1:20 titer Neg:<1:20 [facility] Comment on above: The atypical pANCA p attern has been observed in asignificant percentage of patients with ulcerative colitis,primary sclerosing cholangitis and autoimmune hepatitis. Erythrocyte sedimentation ra teOrdered By: Thomas Andrew on 01-25-2023 ESR (Bld) [Velocity] 29 mm/h 0-30 [facility] Serum classic neutrophil cyt oplasmic antibody assay (units/volume)Ordered By: Thomas Andrew on 01-25-2023 Neutrophil cytoplasmic Ab.classic Qn (S) <1:20 titer Neg:<1:20 [facility] Serum or plasma C reactive p rotein measurement (mass/volume)Ordered By: Thomas Andrew on 01-25-2023 CRP [Mass/Vol] 9.78 mg/L 0.0-3.0 [facility] Comment on above: C-Reactive Protein ( CRP) provides useful information for thediagnosis, therapy and monitoring of inflammatory processesand associated diseases. For the evaluation of Relative Riskfor Cardiovascular Disease, a High Sensitivity CRP (HSCRP)should be ordered. Serum or plasma actin IgG an tibody assay (units/volume)Ordered By: Thomas Andrew on 01-25-2023 Actin IgG Qn 13 Units 0-19 [facility] Comment on above: Negative 0 - 19 Weak positive 20 - 30 Moderate to strong positive >30 Actin Antibodies are found in 52-85% of patients with autoimmune hepatitis or chronic active hepatitis and in 22% of patients with primary biliary cirrhosis.Performed at: [facility] [id number] Director: Daryl Ibrahim PhD, Phone: [phone] Serum or plasma ferritin meredith surement (mass/volume)Ordered By: Thomas Andrew on 01-25-2023 Ferritin [Mass/Vol] 169 ng/mL 8-252 [facility] Serum perinuclear neutrophil cytoplasmic antibody titer by immunofluorescenceOrdered By: Thomas Andrew on 01-25-2023 Neutrophil cytoplasmic Ab.perinuclear IF (S) [Titer] <1:20 titer Neg:<1:20 [facility] Comment on above: The presence of posi tive fluorescence exhibiting P-ANCA orC-ANCA patterns alone is not specific for the diagnosis ofWegener's Granulomatosis (WG) or microscopic polyangiitis.Decisions about treatment should not be based solely onANCA IFA results. The International ANCA Group Consensusrecommends follow up testing of positive sera with both AR-3 and MPO-ANCA enzyme immunoassays. As many as 5% serumsamples are positive only by EIA. Ref. AM J Clin [id number];111:507-513. Absolute lymphocyte countOrd ered By: Thomas Andrew on 09-15-2022 Lymphocytes Auto (Unsp spec) [#/Vol] 2.13 10*3/uL 0.83-4.51 [facility] Atypical perinuclear antineu trophil cytoplasmic antibodies measurementOrdered By: Thomas Andrew on 09-15-2022 Neutrophil cytoplasmic Ab.perinuclear.atypical IF (S) [Titer] <1:20 titer Neg:<1:20 [facility] Comment on above: The atypical pANCA p attern has been observed in asignificant percentage of patients with ulcerative colitis,primary sclerosing cholangitis and autoimmune hepatitis. Basophil percentageOrdered B y: Thomas Friend on 09-15-2022 Ammonia (P) [Moles/Vol] 12.0 umol/L 11-32 [facility] Basophil percentage < 0.2 AI 0.0-0.9 [facility] Basophils/100 WBC (Bld) 0.8 % 0-1 [facility] Bilirubin [Mass/Vol] 0.60 mg/dL 0.20-1.00 [facility] Comment on above: For patients on eltr ombopag therapy, use of Dimension [place] TBIL is not recommended. Chloride [Moles/Vol] 104 mmol/L 98-107 [facility] Cholesterol [Mass/Vol] 178 mg/dL <200 [facility] Comment on above: <200 mg/dL Desirable 200-240 mg/dL Borderline >240 mg/dL High Risk Eosinophils/100 WBC (Bld) 3.3 % 0-5 [facility] Glucose [Mass/Vol] 98 mg/dL 74-106 [facility] LDH [Catalytic activity/Vol] 179 U/L 84-246 [facility] Neutrophils (Bld) [#/Vol] 4.3 10*3/uL 2.0-7.7 [facility] Neutrophils/100 WBC (Bld) 58.8 % 47-70 [facility] Potassium [Moles/Vol] 3.6 mmol/L 3.5-5.1 [facility] Protein [Mass/Vol] 7.3 g/dL 6.4-8.2 [facility] Sodium [Moles/Vol] 139 mmol/L 136-145 [facility] Triglyceride [Mass/Vol] 131 mg/dL <199 [facility] Comment on above: The drugs N-Acetylcy steine and Metamizole may falsely depress this assay.Serum Triglycerides Reference Interval Normal <150 mg/dL Borderline high 150 - 199 mg/dL High 200 - 499 mg/dL Very High > or = 500 mg/dL WBC (Bld) [#/Vol] 7.4 10*3/uL 4.4-11.0 [facility] Blood erythrocytes count (nu mber/volume)Ordered By: Thomas Andrew on 09-15-2022 RBC (Bld) [#/Vol] 4.81 10*6/uL 4.2-5.4 [facility] Blood hemoglobin measurement (mass/volume)Ordered By: Thomas Andrew on 09-15-2022 Hemoglobin (Bld) [Mass/Vol] 14.4 g/dL 12.0-15.0 [facility] Blood lymphocytes/100 leukoc ytesOrdered By: Thomas Andrew on 09-15-2022 Lymphocytes/100 WBC (Bld) 28.9 % 19-41 [facility] Blood monocytes/100 leukocyt esOrdered By: Thomas Andrew on 09-15-2022 Monocytes/100 WBC (Bld) 7.7 % 0-10 [facility] Blood platelet mean volumeOr dered By: Thomas Andrew on 09-15-2022 Platelet mean volume (Bld) [Entitic vol] 10.5 fL 6.2-12.0 [facility] Determination of erythrocyte mean corpuscular volume (MCV)Ordered By: Thomas Andrew on 09-15-2022 MCV (RBC) [Entitic vol] 90.9 fL 81-99 [facility] Erythrocyte sedimentation ra teOrdered By: Thomas Andrew on 09-15-2022 ESR (Bld) [Velocity] 35 mm/h 0-30 [facility] HIV 1 and HIV-2 antibody ass ay with HIV-1 p24 antigen detectionOrdered By: Thomas Andrew on 09-15-2022 HIV 1+2 Ab+HIV1 p24 Ag IA Ql Non-Reactive Nonreactive [facility] Hematocrit Auto (Bld) [Volum e fraction]Ordered By: Thomas Andrew on 09-15-2022 Hematocrit (Bld) [Volume fraction] 43.7 % 37-47 [facility] INR in Blood by Coagulation assayOrdered By: Thomas Andrew on 09-15-2022 INR Coag (Bld) [Relative time] 1.0 {INR} [facility] Laboratory - Chemistry and C hemistry - challengeOrdered By: Thomas Andrew on 09-15-2022 ALP [Catalytic activity/Vol] 93 U/L 45-117 [facility] ALT [Catalytic activity/Vol] 186 U/L 13-56 [facility] CO2 [Moles/Vol] 26.0 mmol/L 21.0-32.0 [facility] Globulin (S) [Mass/Vol] 4.0 g/dL 2.2-4.2 [facility] Urea nitrogen/Creatinine [Mass ratio] 12.6 mg/mg 10-20 [facility] Laboratory - CoagulationOrde red By: Thomas Andrew on 09-15-2022 PT Coag (PPP) [Time] 13.4 s 11.7-14.9 [facility] - Hematology and Cell countsOrdered By: Thomas Andrew on 09-15-2022 Erythrocyte distribution width (RBC) [Entitic vol] 44.0 fL 35.1-43.9 [facility] Erythrocyte distribution width (RBC) [Ratio] 13.2 % 11.6-14.6 [facility] Immature granulocytes/100 WBC (Bld) 0.500 % 0.0-0.9 [facility] Comment on above: IG% - Immature Granu locytes (promyelocytes, myelocytes and metamyelocytes) > 1% indicates that a LEFT SHIFT is Present. MCH (RBC) [Entitic mass] 29.9 pg 27.0-32.0 [facility] Nucleated RBC/100 WBC (Bld) [Ratio] 0 % 0-5 [facility] MCHC Auto (RBC) [Mass/Vol]Or dered By: Thomas Andrew on 09-15-2022 MCHC (RBC) [Mass/Vol] 33.0 g/dL 32-36 [facility] No Panel InformationOrdered By: Thomas Andrew on 09-15-2022 Centromere B Antibody <0.2 AI 0.0-0.9 [facility] Ceruloplasmin 24.4 mg/dL 19.0-39.0 [facility] Estimated GFR (MDRD) Amer 100 mL/min >60 [facility] Comment on above: GFR Calc Estimated GFR (MDRD) Non-Af Amer 82 mL/min >60 [facility] Comment on above: Non- GFR Calc Haptoglobin 194 mg/dL 42-296 [facility] Comment on above: Performed at: [facility] [id number] [place], [place] [id number] Director: Daryl Ibrahim PhD, Phone: [phone] at: [facility] [id number] Director: Andrea Horton MD, Phone: [phone] Hepatitis A IgM Antibody Negative Negative [facility] Hepatitis B Core IgM Antibody Negative Negative [facility] Hepatitis C Antibody (EIA) Non-Reactive Non Reactive [facility] Hepatitis C Antibody Comment Comment . [facility] Comment on above: Not infected with HC V unless early or acute infection issuspected (which may be delayed in an immunocompromisedindividual), or other evidence exists to indicate HCVinfection. [employer] Antibody <0.2 AI 0.0-0.9 [facility] Vitamin D 25-Hydroxy 98.6 ng/mL [facility] Comment on above: Vitamin D 25(OH) Sta tus Range Deficiency <20 ng/mL (50nmol/L) Insufficiency 20 - 30 ng/mL (50 - 75 nmol/L) Sufficiency 30 - 100 ng/mL (75 - 250 nmol/L) Toxicity >100 ng/mL (>250 nmol/L) Platelets bldOrdered By: Lon Andrew on 09-15-2022 Platelets (Bld) [#/Vol] 239 10*3/uL 150-450 [facility] Serum DNA double strand anti body assay (units/volume)Ordered By: Thomas Andrew on 09-15-2022 DNA double strand Ab Qn (S) [IU]/mL 0-9 [facility] Comment on above: Negative <5 Equivoca l 5 - 9 Positive >9 Serum Isela-1 antibody assay (u nits/volume)Ordered By: Thomas Andrew on 09-15-2022 Isela-1 extractable nuclear Ab Qn (S) <0.2 AI 0.0-0.9 [facility] Serum Scl-70 extractable nuc lear antibody assay (units/volume)Ordered By: Thomas Andrew on 09-15-2022 SCL-70 extractable nuclear Ab Qn (S) <0.2 AI 0.0-0.9 [facility] Serum Tucker extractable nucl ear antibody detectionOrdered By: Thomas Andrew on 09-15-2022 Tucker extractable nuclear Ab Ql (S) <0.2 AI 0.0-0.9 [facility] Serum classic neutrophil cyt oplasmic antibody assay (units/volume)Ordered By: Thomas Andrew on 09-15-2022 Neutrophil cytoplasmic Ab.classic Qn (S) 1:20 titer Neg:<1:20 [facility] Serum mitochondria antibody detectionOrdered By: Thomas Andrew on 09-15-2022 Mitochondria Ab Ql (S) <20.0 Units 0.0-20.0 [facility] Comment on above: Negative 0.0 - 20.0 Equivocal 20.1 - 24.9 Positive >24.9Mitochondrial (M2) Antibodies are found in 90-96% ofpatients with primary biliary cirrhosis. Serum or plasma C reactive p rotein measurement (mass/volume)Ordered By: Thomaslou Andrew on 09-15-2022 CRP [Mass/Vol] 13.10 mg/L 0.0-3.0 [facility] Comment on above: C-Reactive Protein ( CRP) provides useful information for thediagnosis, therapy and monitoring of inflammatory processesand associated diseases. For the evaluation of Relative Riskfor Cardiovascular Disease, a High Sensitivity CRP (HSCRP)should be ordered. Serum or plasma actin IgG an tibody assay (units/volume)Ordered By: Thomas Andrew on 09-15-2022 Actin IgG Qn 27 Units 0-19 [facility] Comment on above: Negative 0 - 19 Weak positive 20 - 30 Moderate to strong positive >30 Actin Antibodies are found in 52-85% of patients with autoimmune hepatitis or chronic active hepatitis and in 22% of patients with primary biliary cirrhosis. Serum or plasma albumin mendoza urement (mass/volume)Ordered By: Thomas Andrew on 09-15-2022 Albumin [Mass/Vol] 3.3 g/dL 3.2-5.0 [facility] Serum or plasma albumin/glob ulin mass ratioOrdered By: Thomas Andrew on 09-15-2022 Albumin/Globulin [Mass ratio] 0.8 {ratio} 0.9-2.4 [facility] Serum or plasma dcksb-[id number] protein tumor marker measurement (units/volume)Ordered By: Thomas Andrew on 09-15-2022 AFP.tumor marker Qn 4.1 ng/mL 0.0-6.4 [facility] Comment on above: [facility] El ectrochemiluminescence Immunoassay(ECLIA)Values obtained with different assay methods or kits cannotbe used interchangeably. Results cannot be interpreted asabsolute evidence of the presence or absence of malignantdisease.This test is not interpretable in females. Serum or plasma angiotensin converting enzyme measurement (enzymatic activity/volume)Ordered By: Thomas Andrew on 09-15-2022 Angiotensin converting enzyme [Catalytic activity/Vol] 42 U/L 14-82 [facility] Serum or plasma calcitriol m easurement (mass/volume)Ordered By: Thomas Andrew on 09-15-2022 1,25-dihydroxyvitamin D3 [Mass/Vol] 84.4 pg/mL 24.8-81.5 [facility] Comment on above: Performed at: [address] [id number] Director: Daryl Ibrahim PhD, Phone: [phone] at: [facility] [id number] Director: Andrea Horton MD, Phone: [phone] Serum or plasma calcium mendoza urement (mass/volume)Ordered By: Thomas Andrew on 09-15-2022 Calcium [Mass/Vol] 9.2 mg/dL 8.5-10.1 [facility] Serum or plasma cholesterol in HDL measurement (mass/volume)Ordered By: Thomas Andrew on 09-15-2022 Cholesterol in HDL [Mass/Vol] 43 mg/dL >40 [facility] Comment on above: The drugs N-Acetylcy steine and Metamizole may falsely depress this assay. Reference Range HDL <40 mg/dL Low HDL Cholesterol HDL >or= 60 mg/dL High HDL Cholesterol Serum or plasma cholesterol in VLDL measurement (mass/volume)Ordered By: Thomas Andrew on 09-15-2022 Cholesterol in VLDL [Mass/Vol] 26 mg/dL 5-40 [facility] Serum or plasma creatinine m easurement (mass/volume)Ordered By: Thomas Andrew on 09-15-2022 Creatinine [Mass/Vol] 0.79 mg/dL 0.55-1.02 [facility] Comment on above: The validity of the calculated GFR & GFRAA in patients over 70 years has not been determined. Clinical correlation is essential. Serum or plasma ferritin meredith surement (mass/volume)Ordered By: Thomas Andrew on 09-15-2022 Ferritin [Mass/Vol] 333 ng/mL 8-252 [facility] Serum or plasma hepatitis B virus surface antigen detection by immunoassayOrdered By: Thomas Andrew on 09-15-2022 HBV surface Ag IA Ql Negative Negative [facility] Serum or plasma low density lipoprotein (LDL) cholesterol measurement (mass/volume)Ordered By: Thomas Andrew on 09-15-2022 Cholesterol in LDL [Mass/Vol] 109 mg/dL 0-130 [facility] Serum or plasma urea nitroge n measurement (mass/volume)Ordered By: Thomas Andrew on 09-15-2022 Urea nitrogen [Mass/Vol] 10 mg/dL 7-18 [facility] Serum perinuclear neutrophil cytoplasmic antibody titer by immunofluorescenceOrdered By: Thomas Andrew on 09-15-2022 Neutrophil cytoplasmic Ab.perinuclear IF (S) [Titer] <1:20 titer Neg:<1:20 [facility] Comment on above: The presence of posi tive fluorescence exhibiting P-ANCA orC-ANCA patterns alone is not specific for the diagnosis ofWegener's Granulomatosis (WG) or microscopic polyangiitis.Decisions about treatment should not be based solely onANCA IFA results. The [employer] ANCA Group Consensusrecommends follow up testing of positive sera with both AR-3 and MPO-ANCA enzyme immunoassays. As many as 5% serumsamples are positive only by EIA. Ref. AM J Clin [id number];[id number]. Thin prep Papanicolaou smear with manual screeningOrdered By: Thomas Andrew on 09-15-2022 Thin prep Papanicolaou smear with manual screening 123 U/L 15-37 [facility] Thin prep Papanicolaou smear with manual screening 9 5-15 [facility] Thin prep Papanicolaou smear with manual screening 113 ug/dL 80-158 [facility] Comment on above: Detection Limit = 5 Whole blood hemoglobin A1c/t otal hemoglobin ratio (mass fraction)Ordered By: Thomas Andrew on 09-15-2022 HbA1c (Bld) [Mass fraction] 5.6 % 3.8-5.6 [facility] Comment on above: Normal < 5.7 % Predi abetic 5.7 - 6.4 % Diabetic >or= 6.5 % Please note range changes. No Panel Informationon 06-16 [facility] 25(OH)D3 SerPl-mCncon 2022 25-hydroxyvitamin D3 [Mass/Vol] 20.3 ng/mL Low 31.0-80.0 [facility] Comment on above: Order Comment: Stormy blunt Type: BLOOD SPECIMEN Ordering Facility: [facility] Address: [address] [place] [address] Result Comment: Clas sification of 25 OH Vitamin D status: Deficiency/Insufficiency: < or = 30 ng/ml. Sufficiency/Optimal Levels: 31-80 ng/mL Toxicity: > 100 ng/mL. Test performed by chemiluminescent immunoassay. Performed By: #### 1 989-3 #### [facility] CLIA [id number] [address] OF [facility] Comprehensive metabolic 2000 panelon 06-14-2022 Albumin [Mass/Vol] 4.4 g/dL Normal 3.9-4.9 [facility] Comment on above: Order Comment: Stormy blunt Type: BLOOD SPECIMEN Ordering Facility: [facility] Address: [address] [place] [address] Performed By: #### 3 016-3, 69172-7 #### [facility] CLIA [id number] [address] ALP [Catalytic activity/Vol] 91 U/L Normal 34-123 [facility] Comment on above: Order Comment: Sotrmy blunt Type: BLOOD SPECIMEN Ordering Facility: [facility] Address: [address] [place] [address] Performed By: #### 3 016-3, 45282-8 #### [facility] CLIA [id number] [address] [place] [address] [place] ALT [Catalytic activity/Vol] 171 U/L High 7-38 [facility] Comment on above: Order Comment: Speci men Type: BLOOD SPECIMEN Ordering Facility: [facility] Address: [address] [address] Performed By: #### 3 016-3, 37980-8 #### [facility] CLIA [id number] [address] [place] [address] [place] Anion gap [Moles/Vol] 10 mmol/L Normal 9-18 [facility] Comment on above: Order Comment: Speci men Type: BLOOD SPECIMEN Ordering Facility: [facility] Address: [address] [address] Performed By: #### 3 016-3, 03847-6 #### [facility] CLIA [id number] [address] [place] [address] [place] AST [Catalytic activity/Vol] 150 U/L High 13-35 [facility] Comment on above: Order Comment: Speci men Type: BLOOD SPECIMEN Ordering Facility: [facility] Address: [address] [address] Performed By: #### 3 016-3, 64695-6 #### [facility] CLIA [id number] [address] [place] [address] [place] Bilirubin [Mass/Vol] 0.4 mg/dL Normal 0.2-1.3 [facility] Comment on above: Order Comment: Speci men Type: BLOOD SPECIMEN Ordering Facility: [facility] Address: [address] [address] Performed By: #### 3 016-3, 25355-2 #### [facility] CLIA [id number] [address] [place] Calcium [Mass/Vol] 9.6 mg/dL Normal 8.5-10.2 [facility] Comment on above: Order Comment: Speci men Type: BLOOD SPECIMEN Ordering Facility: [facility] Address: [address] [address] Performed By: #### 3 016-3, 13695-1 #### [facility] CLIA [id number] [address] Chloride [Moles/Vol] 104 mmol/L Normal 97-105 [facility] Comment on above: Order Comment: Stormy men Type: BLOOD SPECIMEN Ordering Facility: [facility] Address: [address] [place] [address] Performed By: #### 3 016-3, 47332-3 #### [facility] CLIA [id number] [address] CO2 [Moles/Vol] 28 mmol/L Normal 22-30 [facility] Comment on above: Order Comment: Sagei men Type: BLOOD SPECIMEN Ordering Facility: [facility] Address: [address] [place] [address] Performed By: #### 3 016-3, #### [facility] CLIA [id number] [address] Creatinine [Mass/Vol] 0.78 mg/dL Normal 0.58-0.96 [facility] Comment on above: Order Comment: Sagei men Type: BLOOD SPECIMEN Ordering Facility: [facility] Address: [address] [place] [address] Performed By: #### 3 016-3, #### [facility] CLIA [id number] [address] ESTIMATED GLOMERULAR FILTRATION RATE 94 mL/min/1.73m??? Normal >=60 [facility] Comment on above: Order Comment: Stormy men Type: BLOOD SPECIMEN Ordering Facility: [facility] Address: [address] [place] [address] Result Comment: Radha mated Glomerular Filtration Rate (eGFR) is calculated using the 2020 CKD-EPI creatinine equation. This equation utilizes serum creatinine, sex, and age as parameters. The creatinine assay has traceable calibration to isotope dilution-mass spectrometry. Refer to KDIGO guidelines for clinical interpretation. In patients with unstable renal function, e.g. those with acute kidney injury, the eGFR may not accurately reflect actual GFR. Performed By: #### 3 016-3, 20447-7 #### [facility] CLIA [id number] [address] [place] [address] [place] Glucose [Mass/Vol] 103 mg/dL High 74-99 [facility] Comment on above: Order Comment: Stormy blunt Type: BLOOD SPECIMEN Ordering Facility: [facility] Address: [address] [place] [address] Result Comment: The [place] [employer] (ADA) provides guidance for cutoff values for fasting glucose and random glucose. The ADA defines fasting as no caloric intake for at least 8 hours. Fasting plasma glucose results between 100 to 125 mg/dL indicate increased risk for diabetes (prediabetes). Fasting plasma glucose results greater than or equal to 126 mg/dL meet the criteria for diagnosis of diabetes. In the absence of unequivocal hyperglycemia, results should be confirmed by repeat testing. In a patient with classic symptoms of hyperglycemia or hyperglycemic crisis, random plasma glucose results greater than or equal to 200 mg/dL meet the criteria for diagnosis of diabetes. Reference: Standards of Medical Care in Diabetes 2016, [place] [employer]. Diabetes Care. 2016.39(Suppl 1). Performed By: #### 3 016-3, 90908-9 #### [facility] CLIA [id number] [address] [place] [address] [place] Potassium [Moles/Vol] 4.2 mmol/L Normal 3.7-5.1 [facility] Comment on above: Order Comment: Stormy blunt Type: BLOOD SPECIMEN Ordering Facility: [facility] Address: [address] [place] [address] Performed By: #### 3 016-3, 21328-2 #### [facility] CLIA [id number] [address] [place] [address] [place] Protein [Mass/Vol] 7.3 g/dL Normal 6.3-8.0 [facility] Comment on above: Order Comment: Stormy blunt Type: BLOOD SPECIMEN Ordering Facility: [facility] Address: [address] [place] [address] Performed By: #### 3 016-3, 81478-0 #### [facility] CLIA [id number] [address] [place] [address] [place] Sodium [Moles/Vol] 142 mmol/L Normal 136-144 [facility] Comment on above: Order Comment: Stormy blunt Type: BLOOD SPECIMEN Ordering Facility: [facility] Address: [address] [id number] Performed By: #### 3 016-3, 77367-0 #### [facility] CLIA [id number] [address] [place] [address] [place] [facility] Urea nitrogen [Mass/Vol] 9 mg/dL Normal 7-21 [facility] Comment on above: Order Comment: Speci jose raul Type: BLOOD SPECIMEN Ordering Facility: [facility] Address: [address] [address] Performed By: #### 3 016-3, 45296-6 #### [facility] CLIA [id number] [address] TSH SerPl-aCncon 06-14-2022 TSH Qn 0.879 m[IU]/L Normal 0.270-4.200 [facility] Comment on above: Order Comment: Speci jose raul Type: BLOOD SPECIMEN Ordering Facility: [facility] Address: [address] [address] Result Comment: If t he patient is , TSH reference range varies by gestational period: First Trimester (weeks 9-12): 0.180-2.990 mIU/L Second Trimester: 0.110-3.980 mIU/L Third Trimester: 0.480-4.710 mIU/L Oziel White et al. A Practical Approach for the Verifications and Determination of Site- and Trimester-Specific Reference Intervals for Thyroid Function tests in . Thyroid, 2019:29:3:412-420. Chris Vasquez, et al. 2017 Guidelines of the [place] Thyroid Association for the Diagnosis and Management of Thyroid Disease during and the . Thyroid, 2017:27:3:315-389. Performed By: #### 3 016-3, 35180-5 #### [facility] CLIA [id number] [address] [place] [address] [place] COLONOSCOPY SCREENINGon 10-0 [facility] IRIS SCREENINGon 01-09-2022 [facility] XR Lumbar spine 3 Viewson IMPRESSION: Lumbar s pine degenerative changes as described above. Packer Fuser: MATT Transcribe Date/Time: Nov 29 2020 2:06P Dictated by : SELENE JIMENEZ MD This examination was interpreted and the report reviewed and electronically signed by: SELENE JIMENEZ MD on Nov 29 2020 2:08PM [facility] DIVISION OF RADIOLOGY * * *Final Report* * * DATE OF EXAM: Nov 29 2020 2:03PM WOX [id number] - XR LUMBAR 3V AP/LAT/L5-S1 / PROCEDURE REASON: Acute left-sided low back pain with left-sided sciatica * * * * Physician Interpretation * * * * EXAM TITLE: XR LUMBAR 3V AP/LAT/L5-S1 EXAM DATE/TIME: 11/29/2020 2:03 PM COMPARISON: None. CLINICAL INDICATION/HISTORY: Low back pain. TECHNIQUE: AP, lateral and cone down lateral views of the lumbar spine are presented. FINDINGS: There are five kkn-tlf-oelrtam lumbar vertebrae. No fracture or subluxations are noted. L5-S1 disc space narrowing is demonstrated, with endplate sclerosis. There is no significant osteophyte formation. DIVISION OF RADIOLOGY Provider, [facility] - 11/29/2020 * * *Final Report* * * DATE OF EXAM: Nov 29 2020 2:03PM WOX [id number] - XR LUMBAR 3V AP/LAT/L5-S1 / PROCEDURE REASON: Acute left-sided low back pain with left-sided sciatica * * * * Physician Interpretation * * * * EXAM TITLE: XR LUMBAR 3V AP/LAT/L5-S1 EXAM DATE/TIME: 11/29/2020 2:03 PM COMPARISON: None. CLINICAL INDICATION/HISTORY: Low back pain. TECHNIQUE: AP, lateral and cone down lateral views of the lumbar spine are presented. FINDINGS: There are five kzt-jti-nudzquj lumbar vertebrae. No fracture or subluxations are noted. L5-S1 disc space narrowing is demonstrated, with endplate sclerosis. There is no significant osteophyte formation. IMPRESSION IMPRESSION: Lumbar spine degenerative changes as described above. Packer Fuser: MATT Transcribe Date/Time: Nov 29 2020 2:06P Dictated by : SELENE JIMENEZ MD This examination was interpreted and the report reviewed and electronically signed by: SELENE JIMENEZ MD on Nov 29 2020 2:08PM EST [facility] Radiology Study observation (narrative) Carmen pal [facility] XR Lumbar spine 3 ViewsOrder ed By: [facility] Provider on 11-29-2020 [facility] Vital Signs Date Time Vital Sign Value Performing Clinician Facility 01-22-2025 13:41-0400 Body height 163.8 cm Liza Avila MD Work Phone: [facility] 01-22-2025 13:41-0400 Body mass index (BMI) [Ratio] 31.23 kg/m2 Liza Avila MD Work Phone: [facility] 01-22-2025 13:41-0400 Body temperature 98.01 [degF] Liza Avila MD Work Phone: [facility] 01-22-2025 13:41-0400 Body weight 83.83 kg Liza Avila MD Work Phone: [facility] 01-22-2025 13:41-0400 Diastolic blood pressure 76 mm[Hg] Liza Avila MD Work Phone: [facility] 01-22-2025 13:41-0400 Heart rate 75 /min Liza Avila MD Work Phone: [facility] 01-22-2025 13:41-0400 Systolic blood pressure 117 mm[Hg] Liza Avila MD Work Phone: [facility] 12-22-2024 12:54-0400 Body height 162.6 cm Vik Henderson MD Work Phone: [facility] 12-22-2024 12:54-0400 Body mass index (BMI) [Ratio] 31.58 kg/m2 Vik Henderson MD Work Phone: [facility] 12-22-2024 12:54-0400 Body temperature 98.29 [degF] Vik Henderson MD Work Phone: [facility] 12-22-2024 12:54-0400 Body weight 83.46 kg Vik Henderson MD Work Phone: [facility] 12-22-2024 12:54-0400 Diastolic blood pressure 79 mm[Hg] Vik Hednerson MD Work Phone: [facility] 12-22-2024 12:54-0400 Heart rate 76 /min Vik Henderson MD Work Phone: [facility] 12-22-2024 12:54-0400 Systolic blood pressure 127 mm[Hg] Vik Henderson MD Work Phone: [facility] 11-28-2024 14:20-0400 Body mass index (BMI) [Ratio] 31.41 kg/m2 Brigette Haagen [employer] OFFICER Work Phone: [facility] 11-28-2024 14:20-0400 Body weight 83.01 kg Brigette Haagen [employer].CAREER SERVICES OFFICER Work Phone: [facility] 11-28-2024 14:20-0400 Diastolic blood pressure 80 mm[Hg] Brigette Haagen [employer].CAREER SERVICES OFFICER Work Phone: [facility] 11-28-2024 14:20-0400 Heart rate 58 /min Brigette Haagen [employer].CAREER SERVICES OFFICER Work Phone: [facility] 11-28-2024 14:20-0400 Respiratory rate 16 /min Brigette Haagen [employer].CAREER SERVICES OFFICER Work Phone: [facility] 11-28-2024 14:20-0400 SaO2% (BldA) [Mass fraction] 99 % Brigette Haagen [employer].CAREER SERVICES OFFICER Work Phone: [facility] 11-28-2024 14:20-0400 Systolic blood pressure 136 mm[Hg] Brigette Haagen [employer].CAREER SERVICES OFFICER Work Phone: [facility] 11-17-2024 09:08-0400 Diastolic blood pressure 84 mm[Hg] Brigette Haagen [employer].CAREER SERVICES OFFICER Work Phone: [facility] 11-17-2024 09:08-0400 Heart rate 71 /min Brigette Haagen [employer].CAREER SERVICES OFFICER Work Phone: [facility] 11-17-2024 09:08-0400 Respiratory rate 16 /min Brigette Haagen [employer].CAREER SERVICES OFFICER Work Phone: [facility] 11-17-2024 09:08-0400 SaO2% (BldA) [Mass fraction] 97 % Brigette Haagen [employer]SEM[employer]ER.CAREER SERVICES OFFICER Work Phone: [facility] 11-17-2024 09:08-0400 Systolic blood pressure 126 mm[Hg] Brigette Haagen [employer]SEM[employer].CAREER SERVICES OFFICER Work Phone: [facility] 11-07-2024 10:40-0400 Body mass index (BMI) [Ratio] 31.79 kg/m2 Nohemi Swank [employer]CAREER SERVICES OFFICER Work Phone: [facility] 11-07-2024 10:40-0400 Body temperature 98.01 [degF] Nohemi Swank [employer].CAREER SERVICES OFFICER Work Phone: [facility] 11-07-2024 10:40-0400 Body weight 84 kg Nohemi Swank [employer].CAREER SERVICES OFFICER Work Phone: [facility] 11-07-2024 10:40-0400 Diastolic blood pressure 87 mm[Hg] Nohemi Swank [employer]ER.CAREER SERVICES OFFICER Work Phone: [facility] 11-07-2024 10:40-0400 Heart rate 85 /min Nohemi Swank [employer].CAREER SERVICES OFFICER Work Phone: [facility] 11-07-2024 10:40-0400 Respiratory rate 20 /min Nohemi Swank [employer].CAREER SERVICES OFFICER Work Phone: [facility] 11-07-2024 10:40-0400 SaO2% (BldA) [Mass fraction] 98 % Nohemi Swank [employer] ASSEM[employer]ER.CAREER SERVICES OFFICER Work Phone: [facility] 11-07-2024 10:40-0400 Systolic blood pressure 137 mm[Hg] Nohemi Swank [employer]ER.CAREER SERVICES OFFICER Work Phone: [facility] 11-07-2024 09:19-0400 Body height 162.[address] Work Phone: [facility] 11-07-2024 09:19-0400 Body mass index (BMI) [Ratio] 30.9 kg/m2 Mushtaq Lincoln RD Work Phone: [facility] 11-07-2024 09:19-0400 Body weight 81.[address] Work Phone: [facility] Comment on above: per patient report 10-21-2024 13:05-0400 Body mass index (BMI) [Ratio] 31.62 kg/m2 Leora Ha MD Work Phone: [facility] 10-21-2024 13:05-0400 Body temperature 97.81 [degF] Leora Ha MD Work Phone: [facility] 10-21-2024 13:05-0400 Body weight 83.55 kg Leora Ha MD Work Phone: [facility] 10-21-2024 13:05-0400 Diastolic blood pressure 78 mm[Hg] Leora Ha MD Work Phone: [facility] 10-21-2024 13:05-0400 Heart rate 107 /min Leora Ha MD Work Phone: [facility] 10-21-2024 13:05-0400 SaO2% (BldA) [Mass fraction] 99 % Leora Ha MD Work Phone: [facility] 10-21-2024 13:05-0400 Systolic blood pressure 130 mm[Hg] Leora Ha MD Work Phone: [facility] 09-09-2024 10:47-0400 Body height 162.6 cm Leora Ha MD Work Phone: [facility] 09-09-2024 10:47-0400 Body mass index (BMI) [Ratio] 31.86 kg/m2 Leora Ha MD Work Phone: [facility] 09-09-2024 10:47-0400 Body temperature 97.9 [degF] Leora Ha MD Work Phone: [facility] 09-09-2024 10:47-0400 Body weight 84.19 kg Leora Ha MD Work Phone: [facility] 09-09-2024 10:47-0400 Diastolic blood pressure 78 mm[Hg] Leora Ha MD Work Phone: [facility] 09-09-2024 10:47-0400 Heart rate 88 /min Leora Ha MD Work Phone: [facility] 09-09-2024 10:47-0400 SaO2% (BldA) [Mass fraction] 97 % Leora Ha MD Work Phone: [facility] 09-09-2024 10:47-0400 Systolic blood pressure 120 mm[Hg] Leora Ha MD Work Phone: [facility] 06-11-2024 09:20-0500 Diastolic blood pressure 84 mm[Hg] Brigette Haagen [employer]ER SERVICES OFFICER Work Phone: [facility] 06-11-2024 09:20-0500 Heart rate 71 /min Brigette Haagen [employer].CAREER SERVICES OFFICER Work Phone: [facility] 06-11-2024 09:20-0500 Respiratory rate 16 /min Brigette Haagen [employer]SEM[employer]ER.CAREER SERVICES OFFICER Work Phone: [facility] 06-11-2024 09:20-0500 SaO2% (BldA) [Mass fraction] 98 % Brigette Haagen [employer] ASSEM[employer]ER.CAREER SERVICES OFFICER Work Phone: [facility] 06-11-2024 09:20-0500 Systolic blood pressure 128 mm[Hg] Brigette Haagen [employer]SEM[employer].CAREER SERVICES OFFICER Work Phone: [facility] 05-22-2024 09:52-0500 Body mass index (BMI) [Ratio] 32.27 kg/m2 Elana Noel MD Work Phone: [facility] 05-22-2024 09:52-0500 Body weight 85.28 kg Elana Noel MD Work Phone: [facility] 05-05-2024 15:39-0500 Body mass index (BMI) [Ratio] 32.79 kg/m2 Remedios Suppan [employer]CAREER SERVICES OFFICER Work Phone: [facility] 05-05-2024 15:39-0500 Body weight 86.64 kg Remedios Suppan [employer].CAREER SERVICES OFFICER Work Phone: [facility] 05-05-2024 15:39-0500 Diastolic blood pressure 74 mm[Hg] Remedios Suppan [employer] ASSEM[employer]ER.CAREER SERVICES OFFICER Work Phone: [facility] 05-05-2024 15:39-0500 Heart rate 95 /min Remedios Suppan [employer]SEM[employer]ER.CAREER SERVICES OFFICER Work Phone: [facility] 05-05-2024 15:39-0500 Respiratory rate 16 /min Remedios Suppan [employer] ASSEM[employer]ER.CAREER SERVICES OFFICER Work Phone: [facility] 05-05-2024 15:39-0500 SaO2% (BldA) [Mass fraction] 100 % Remedios Suppan [employer] ASSEM[employer]ER.CAREER SERVICES OFFICER Work Phone: [facility] 05-05-2024 15:39-0500 Systolic blood pressure 120 mm[Hg] Remedios Suppan [employer]SEM[employer]ER.CAREER SERVICES OFFICER Work Phone: [facility] 05-02-2024 11:33-0500 Body height 162.[address] Work Phone: [facility] 05-02-2024 11:33-0500 Body mass index (BMI) [Ratio] 32.41 kg/m2 Mushtaq Lincoln RD Work Phone: [facility] 05-02-2024 11:33-0500 Body weight 85.[address] Work Phone: [facility] Comment on above: verbal per patient 03-28-2024 08:00-0500 Body mass index (BMI) [Ratio] 33.3 kg/m2 Remedios Suppan [employer].CAREER SERVICES OFFICER Work Phone: [facility] 03-28-2024 08:00-0500 Body weight 88 kg Remedios Suppan [employer]SEM[employer]ER.CAREER SERVICES OFFICER Work Phone: [facility] 03-28-2024 08:00-0500 Diastolic blood pressure 76 mm[Hg] Remedios Suppan [employer]SEM[employer]ER.CAREER SERVICES OFFICER Work Phone: [facility] 03-28-2024 08:00-0500 Heart rate 97 /min Remedios Suppan [employer] ASSEM[employer]ER.CAREER SERVICES OFFICER Work Phone: [facility] 03-28-2024 08:00-0500 Respiratory rate 16 /min Remedios Suppan [employer] ASSEM[employer]ER.CAREER SERVICES OFFICER Work Phone: [facility] 03-28-2024 08:00-0500 SaO2% (BldA) [Mass fraction] 97 % Remedios Suppan [employer] ASSEM[employer]ER.CAREER SERVICES OFFICER Work Phone: [facility] 03-28-2024 08:00-0500 Systolic blood pressure 120 mm[Hg] Remedios Suppan [employer] ASSEM[employer]ER.CAREER SERVICES OFFICER Work Phone: [facility] 03-17-2024 08:46-0500 Body height 162.[address] Work Phone: [facility] 03-17-2024 08:46-0500 Body mass index (BMI) [Ratio] 32.27 kg/m2 Mushtaq Lincoln RD Work Phone: [facility] 03-17-2024 08:46-0500 Body weight 85.[address] Work Phone: [facility] Comment on above: verbal per patient 03-07-2024 08:22-0400 Diastolic blood pressure 70 mm[Hg] Remedios Suppan [employer]SEM[employer]ER.CAREER SERVICES OFFICER Work Phone: [facility] 03-07-2024 08:22-0400 Systolic blood pressure 136 mm[Hg] Remedios Suppan [employer] ASSEM[employer]ER.CAREER SERVICES OFFICER Work Phone: [facility] 03-07-2024 08:02-0400 Body mass index (BMI) [Ratio] 33.64 kg/m2 Remedios Suppan [employer] ASSEM[employer]ER.CAREER SERVICES OFFICER Work Phone: [facility] 03-07-2024 08:02-0400 Body weight 88.91 kg Remedios Suppan [employer] ASSEM[employer]ER.CAREER SERVICES OFFICER Work Phone: [facility] 03-07-2024 08:02-0400 Heart rate 82 /min Remedios Suppan [employer] ASSEM[employer]ER.CAREER SERVICES OFFICER Work Phone: [facility] 03-07-2024 08:02-0400 Respiratory rate 16 /min Remedios Suppan [employer] ASSEM[employer]ER.CAREER SERVICES OFFICER Work Phone: [facility] 03-07-2024 08:02-0400 SaO2% (BldA) [Mass fraction] 97 % Remedios Suppan [employer] ASSEM[employer]ER.CAREER SERVICES OFFICER Work Phone: [facility] 02-22-2024 09:07-0400 Body mass index (BMI) [Ratio] 33.13 kg/m2 Remedios Suppan [employer] ASSEM[employer]ER.CAREER SERVICES OFFICER Work Phone: [facility] 02-22-2024 09:07-0400 Body weight 87.54 kg Remedios Suppan [employer] ASSEMBLER.CAREER SERVICES OFFICER Work Phone: [facility] 02-22-2024 09:07-0400 Diastolic blood pressure 70 mm[Hg] Remedios Suppan [employer] ASSEMBLER.CAREER SERVICES OFFICER Work Phone: [facility] 02-22-2024 09:07-0400 Heart rate 88 /min Remedios Suppan [employer] ASSEM[employer]ER.CAREER SERVICES OFFICER Work Phone: [facility] 02-22-2024 09:07-0400 SaO2% (BldA) [Mass fraction] 97 % Remedios Suppan [employer] ASSEM[employer]ER.CAREER SERVICES OFFICER Work Phone: [facility] 02-22-2024 09:07-0400 Systolic blood pressure 114 mm[Hg] Remedios Suppan [employer] ASSEM[employer]ER.CAREER SERVICES OFFICER Work Phone: [facility] 02-08-2024 12:03-0400 Body mass index (BMI) [Ratio] 33.23 kg/m2 Meghana Wharton [employer] ASSEM[employer]ER.CAREER SERVICES OFFICER Work Phone: [facility] 02-08-2024 12:03-0400 Body temperature 97.9 [degF] Meghana Wharton [employer] ASSEM[employer]ER.CAREER SERVICES OFFICER Work Phone: [facility] [facility] 02-08-2024 12:03-0400 Body weight 87.82 kg Meghana Akiko [employer] BAG ASSEMBLER.CAREER SERVICES OFFICER Work Phone: [facility] 02-08-2024 12:03-0400 Diastolic blood pressure 78 mm[Hg] Meghana Akiko ICE BAG ASSEMBLER.CAREER SERVICES OFFICER Work Phone: [facility] 02-08-2024 12:03-0400 Heart rate 60 /min Meghana Akiko [employer] BAG ASSEMBLER.CAREER SERVICES OFFICER Work Phone: [facility] 02-08-2024 12:03-0400 Respiratory rate 16 /min Meghana Akiko [employer] BAG ASSEMBLER.CAREER SERVICES OFFICER Work Phone: [facility] 02-08-2024 12:03-0400 SaO2% (BldA) [Mass fraction] 99 % Meghana Akiko ICE BAG ASSEMBLER.CAREER SERVICES OFFICER Work Phone: [facility] 02-08-2024 12:03-0400 Systolic blood pressure 118 mm[Hg] Meghana Akiko ICE BAG ASSEMBLER.CAREER SERVICES OFFICER Work Phone: [facility] 12-20-2023 10:17-0400 Body mass index (BMI) [Ratio] 34.16 kg/m2 Elana Noel MD Work Phone: [facility] 12-20-2023 10:17-0400 Body weight 90.27 kg Elana Noel MD Work Phone: [facility] 11-23-2023 10:32-0400 Body height 162.[address] Work Phone: [facility] 11-23-2023 10:32-0400 Body mass index (BMI) [Ratio] 34.84 kg/m2 Mushtaq Lincoln RD Work Phone: [facility] 11-23-2023 10:32-0400 Body weight 92.[address] Work Phone: [facility] Comment on above: per patient report 10-15-2023 13:09-0400 Body mass index (BMI) [Ratio] 36.54 kg/m2 Brigette Haagen ICE BAG ASSEMBLER.CAREER SERVICES OFFICER Work Phone: [facility] 10-15-2023 13:09-0400 Body weight 96.62 kg Brigette Haagen ICE BAG ASSEMBLER.CAREER SERVICES OFFICER Work Phone: [facility] 10-15-2023 13:09-0400 Diastolic blood pressure 68 mm[Hg] Brigette Haagen ICE BAG ASSEMBLER.CAREER SERVICES OFFICER Work Phone: [facility] 10-15-2023 13:09-0400 Heart rate 68 /min Brigette Haagen ICE BAG ASSEMBLER.CAREER SERVICES OFFICER Work Phone: [facility] 10-15-2023 13:09-0400 Respiratory rate 16 /min Brigette Haagen ICE BAG ASSEMBLER.CAREER SERVICES OFFICER Work Phone: [facility] 10-15-2023 13:09-0400 SaO2% (BldA) [Mass fraction] 97 % Brigette Haagen ICE BAG ASSEMBLER.CAREER SERVICES OFFICER Work Phone: [facility] 10-15-2023 13:09-0400 Systolic blood pressure 118 mm[Hg] Brigette Haagen ICE BAG ASSEMBLER.CAREER SERVICES OFFICER Work Phone: [facility] 10-05-2023 08:41-0400 Body height 162.6 cm Pulm Wstr Work Phone: [facility] 10-05-2023 08:41-0400 Body mass index (BMI) [Ratio] 36.54 kg/m2 Pulm Wstr Work Phone: [facility] 10-05-2023 08:41-0400 Body weight 96.62 kg Pulm Wstr Work Phone: [facility] 10-05-2023 08:41-0400 Heart rate 85 /min Pulm Wstr Work Phone: [facility] 10-05-2023 08:41-0400 Respiratory rate 14 /min Pulm Wstr Work Phone: [facility] 10-05-2023 08:41-0400 SaO2% (BldA) [Mass fraction] 98 % Pulm Wstr Work Phone: [facility] 09-19-2023 10:40-0400 Body height 164.5 cm Brigette Haagen ICE BAG ASSEMBLER.CAREER SERVICES OFFICER Work Phone: [facility] 09-19-2023 10:40-0400 Body mass index (BMI) [Ratio] 36.54 kg/m2 Brigette Haagen ICE BAG ASSEMBLER.CAREER SERVICES OFFICER Work Phone: [facility] 09-19-2023 10:40-0400 Body weight 98.88 kg Brigette Haagen ICE BAG ASSEMBLER.CAREER SERVICES OFFICER Work Phone: [facility] 09-19-2023 10:40-0400 Diastolic blood pressure 72 mm[Hg] Brigette Haagen ICE BAG ASSEMBLER.CAREER SERVICES OFFICER Work Phone: [facility] 09-19-2023 10:40-0400 Heart rate 65 /min Brigette Haagen ICE BAG ASSEMBLER.CAREER SERVICES OFFICER Work Phone: [facility] 09-19-2023 10:40-0400 Respiratory rate 16 /min Brigette Haagen ICE BAG ASSEMBLER.CAREER SERVICES OFFICER Work Phone: [facility] 09-19-2023 10:40-0400 SaO2% (BldA) [Mass fraction] 97 % Brigette Haagen ICE BAG ASSEMBLER.CAREER SERVICES OFFICER Work Phone: [facility] 09-19-2023 10:40-0400 Systolic blood pressure 104 mm[Hg] Brigette Haagen ICE BAG ASSEMBLER.CAREER SERVICES OFFICER Work Phone: [facility] 09-04-2023 14:23-0400 Body mass index (BMI) [Ratio] 37.59 kg/m2 Brigette Haagen ICE BAG ASSEMBLER.CAREER SERVICES OFFICER Work Phone: [facility] 09-04-2023 14:23-0400 Body weight 99.34 kg Brigette Haagen ICE BAG ASSEMBLER.CAREER SERVICES OFFICER Work Phone: [facility] 09-04-2023 14:23-0400 Diastolic blood pressure 90 mm[Hg] Brigette Haagen ICE BAG ASSEMBLER.CAREER SERVICES OFFICER Work Phone: [facility] 09-04-2023 14:23-0400 Heart rate 74 /min Brigette Haagen ICE BAG ASSEMBLER.CAREER SERVICES OFFICER Work Phone: [facility] 09-04-2023 14:23-0400 Respiratory rate 16 /min Brigette Martin ICE BAG ASSEMBLER.CAREER SERVICES OFFICER Work Phone: [facility] 09-04-2023 14:23-0400 SaO2% (BldA) [Mass fraction] 96 % Brigette Martin ICE BAG ASSEMBLER.CAREER SERVICES OFFICER Work Phone: [facility] 09-04-2023 14:23-0400 Systolic blood pressure 118 mm[Hg] Brigette Martin ICE BAG ASSEMBLER.CAREER SERVICES OFFICER Work Phone: [facility] 08-20-2023 11:33-0400 Body weight 98.88 kg Elana Noel MD Work Phone: [facility] 04-26-2023 14:45-0500 Body height 162.[address] Work Phone: [facility] 04-10-2023 08:01-0500 Body height 162.[address] Work Phone: [facility] 04-10-2023 08:01-0500 Body weight 112.[address] Work Phone: [facility] 02-05-2023 16:02-0400 Body height 162.6 cm Mary Beth Caldwell MD Work Phone: [facility] 02-05-2023 16:02-0400 Body weight 107.5 kg Mary Beth Caldwell MD Work Phone: [facility] 02-05-2023 07:48-0400 Body height 162.6 cm Zeenat Fowler ICE BAG ASSEMBLER.CAREER SERVICES OFFICER Work Phone: [facility] 02-05-2023 07:48-0400 Body weight 107.5 kg Zeenat Bulow ICE BAG ASSEMBLER.CAREER SERVICES OFFICER Work Phone: [facility] 11-15-2022 10:49-0400 Body weight 115.21 kg Brinda Brooks PhD Work Phone: [facility] 09-01-2022 10:18-0400 Body weight 120.66 kg Brinda Saenzelis PhD Work Phone: [facility] 08-02-2022 08:32-0400 Diastolic blood pressure 94 mm[Hg] Brigette Haagen ICE BAG ASSEMBLER.CAREER SERVICES OFFICER Work Phone: [facility] 08-02-2022 08:32-0400 Heart rate 75 /min Brigette Haagen ICE BAG ASSEMBLER.CAREER SERVICES OFFICER Work Phone: [facility] 08-02-2022 08:32-0400 Respiratory rate 18 /min Brigette Haagen ICE BAG ASSEMBLER.CAREER SERVICES OFFICER Work Phone: [facility] 08-02-2022 08:32-0400 SaO2% (BldA) [Mass fraction] 95 % Brigette Haagen ICE BAG ASSEMBLER.CAREER SERVICES OFFICER Work Phone: [facility] 08-02-2022 08:32-0400 Systolic blood pressure 132 mm[Hg] Brigette Haagen ICE BAG ASSEMBLER.CAREER SERVICES OFFICER Work Phone: [facility] 06-19-2022 13:01-0500 Body height 165 cm Brigette Haagen ICE BAG ASSEMBLER.CAREER SERVICES OFFICER Work Phone: [facility] 06-19-2022 13:01-0500 Body weight 121.11 kg Brigette Haagen ICE BAG ASSEMBLER.CAREER SERVICES OFFICER Work Phone: [facility] 06-19-2022 13:01-0500 Diastolic blood pressure 90 mm[Hg] Brigette Haagen ICE BAG ASSEMBLER.CAREER SERVICES OFFICER Work Phone: [facility] 06-19-2022 13:01-0500 Heart rate 78 /min Brigette Haagen ICE BAG ASSEMBLER.CAREER SERVICES OFFICER Work Phone: [facility] 06-19-2022 13:01-0500 Respiratory rate 18 /min Brigette Haagen ICE BAG ASSEMBLER.CAREER SERVICES OFFICER Work Phone: [facility] 06-19-2022 13:01-0500 SaO2% (BldA) [Mass fraction] 99 % Brigette Haagen ICE BAG ASSEMBLER.CAREER SERVICES OFFICER Work Phone: [facility] 06-19-2022 13:01-0500 Systolic blood pressure 120 mm[Hg] Brigette Martin APRN.CAREER SERVICES OFFICER Work Phone: [facility] 02-13-2022 11:38-0400 Diastolic blood pressure 71 mm[Hg] Leora Ha MD Work Phone: [facility] 02-13-2022 11:38-0400 Heart rate 83 /min Leora Ha MD Work Phone: [facility] 02-13-2022 11:38-0400 Respiratory rate 16 /min Leora Ha MD Work Phone: [facility] 02-13-2022 11:38-0400 SaO2% (BldA) [Mass fraction] 96 % Leora Ha MD Work Phone: [facility] 02-13-2022 11:38-0400 Systolic blood pressure 129 mm[Hg] Leora Ha MD Work Phone: [facility] 02-13-2022 10:26-0400 Body temperature 98.4 [degF] Leora Ha MD Work Phone: [facility] 12-09-2021 10:02-0400 Body height 162.6 cm Taylor Jaycee PA-C Work Phone: [facility] 12-09-2021 10:02-0400 Body temperature 97.9 [degF] Taylor [place] PA-C Work Phone: [facility] 12-09-2021 10:02-0400 Body weight 112.49 kg Taylor Jaycee PA-C Work Phone: [facility] 12-09-2021 10:02-0400 Diastolic blood pressure 88 mm[Hg] Taylor Jaycee PA-C Work Phone: [facility] 12-09-2021 10:02-0400 Heart rate 85 /min Taylor [place] PA-C Work Phone: [facility] 12-09-2021 10:02-0400 SaO2% (BldA) [Mass fraction] 95 % Taylor Jaycee PA-C Work Phone: [facility] 12-09-2021 10:02-0400 Systolic blood pressure 150 mm[Hg] Taylor Champion PA-C Work Phone: [facility] Encounters Encounter Date Encounter Type Care Provider Facility Start: 04-15-2025 ambulatory Thomas Andrew Facility :[facility] Start: 03-20-2025 End: 03-20-2025 ambulatory [facility] Facility:[facility] Start: 03-18-2025 End: 03-18-2025 ambulatory ISABELJUSTIN CLAYTON Facility:[facility] Start: 03-11-2025 End: 03-11-2025 ambulatory MACK COLEY Facility:[facility] Start: 03-04-2025 End: 03-04-2025 ambulatory [facility] Facility:[facility] Start: 02-04-2025 End: 02-04-2025 ambulatory [facility] Facility:[facility] Start: 01-22-2025 End: 01-22-2025 Patient encounter procedure Liza Avila MD Work Phone: Plastic Surgery Comment on above: Symptomatic abdomina l panniculus (Primary Dx); History of weight loss; History of bariatric surgery; Intertrigo Start: 01-22-2025 End: 01-22-2025 Chart abstracting Liza Avila MD Work Phone: Plastic Surgery Comment on above: PHOTOS TAKEN Start: 01-22-2025 End: 01-22-2025 [facility] Facility:[facility] Start: 01-13-2025 End: 01-13-2025 [facility] Facility:[facility] Start: 01-13-2025 End: 01-13-2025 Patient encounter procedure Carly Colón APRN.CNP Work Phone: Dermatology Comment on above: Multiple benign nevi (Primary Dx); Seborrheic keratosis; Lentigines; Sanchez angioma; Skin cancer screening Start: 01-01-2025 End: 01-01-2025 Patient encounter procedure Lisa Rodríguez PA-C Work Phone: Orthopaedics Comment on above: Primary osteoarthrit is of both knees (Primary Dx) Start: 01-01-2025 End: 01-01-2025 ambulatory [facility] Facility:[facility] Start: 12-30-2024 End: 12-31-2024 ambulatory Lisa Rodríguez PA-C Work Phone: Orthopaedics Start: 12-30-2024 End: 12-31-2024 Patient encounter procedure Lisa Rodríguez PA-C Work Phone: Orthopaedics Comment on above: 02/02 Appointment Start: 12-24-2024 End: 12-24-2024 Telephone encounter Liza Avila MD Work Phone: [facility] [place] Start: 12-24-2024 End: 12-24-2024 Patient encounter procedure Thomas Andrew DO [facility] Work Phone: Start: 12-24-2024 End: 12-24-2024 ambulatory Brigette Martin ANESTHESIOLOGY FACULTY-C Work Phone: [facility] Start: 12-22-2024 End: 12-22-2024 Patient encounter procedure Vik Henderson MD Work Phone: General Surgery Comment on above: Incisional hernia, w ithout obstruction or gangrene (Primary Dx) Start: 12-22-2024 End: 12-22-2024 ambulatory [facility] Facility:[facility] Start: 12-04-2024 End: 12-04-2024 Patient encounter procedure Carly Colón ICE BAG ASSEMBLER.CAREER SERVICES OFFICER Work Phone: Dermatology Comment on above: Seborrheic keratosis (Primary Dx) Start: 12-04-2024 End: 12-04-2024 ambulatory [facility] Facility:[facility] Start: 11-28-2024 End: 11-28-2024 Periodic preventive med est patient 40-64yrs Brigette Martin APRN.CAREER SERVICES OFFICER Work Phone: [facility] Comment on above: Routine physical exa mination (Primary Dx); Skin mole; Mild intermittent asthma, uncomplicated (HCC) Start: 11-28-2024 End: 11-28-2024 ambulatory [facility] Facility:[facility] Start: 11-28-2024 End: 11-28-2024 Physical examination Brigette Martin APRN.CNP Work Phone: [facility] Start: 11-17-2024 End: 11-17-2024 Office outpatient visit 25 minutes Brigette Martin APRN.CNP Work Phone: [facility] Comment on above: Rib pain (Primary Dx ); Mild intermittent asthma without complication (HCC) Start: 11-17-2024 End: 11-17-2024 ambulatory [facility] Facility:[facility] Start: 11-12-2024 End: 01-12-2025 Follow-up encounter Brigette Martin APRN.CNP Work Phone: [facility] Start: 11-07-2024 End: 11-07-2024 Subsequent hospital visit by physician Xr [facility] Work Phone: Radiology Comment on above: Rib pain on right si de [R07.81] Start: 11-07-2024 End: 11-07-2024 Patient encounter procedure Nohemi Newton APRN.CAREER SERVICES OFFICER Work Phone: [facility] Comment on above: Rib pain on right si de (Primary Dx); Contusion of rib on right side, initial encounter Start: 11-07-2024 End: 11-07-2024 Admission to same day surgery center Mushtaq Lincoln RD Work Phone: General Surgery Comment on above: Reassessment; Patien t Education Start: 11-07-2024 End: 11-07-[address] Work Phone: General Surgery Start: 11-06-2024 End: 11-07-2024 ambulatory Brigette Martin APRN.CAREER SERVICES OFFICER Work Phone: [facility] Comment on above: Asthma question Start: 11-06-2024 End: 11-06-2024 Subsequent hospital visit by physician Screen Mammo [facility] Comment on above: Encounter for screen ing mammogram for breast cancer [Z12.31] Start: 10-28-2024 End: 11-28-2024 ambulatory Brigette Martin ICE BAG ASSEMBLER.CAREER SERVICES OFFICER Work Phone: [facility] Start: 10-21-2024 End: 10-21-2024 ambulatory [facility] Facility:[facility] Start: 10-21-2024 End: 10-21-2024 Patient encounter procedure Leora Ha MD Work Phone: General Surgery Comment on above: Diastasis recti (Evelyne ludin Dx); Umbilical hernia without obstruction and without gangrene Start: 09-29-2024 End: 09-29-2024 Telephone encounter Brigette Martin APRN.CAREER SERVICES OFFICER Work Phone: [facility] Comment on above: Patient Update; Orde rs Start: 09-25-2024 End: 09-29-2024 Admission to same day surgery center Leora Ha MD Work Phone: General Surgery Comment on above: CT results Start: 09-25-2024 End: 09-29-2024 ambulatory Leora Ha MD Work Phone: General Surgery Start: 09-23-2024 [facility] Facility :[facility] Start: 09-23-2024 End: 09-23-2024 Subsequent hospital visit by physician Ct Prep [facility] Cat Scan Comment on above: Incisional hernia, w ithout obstruction or gangrene [K43.2] Start: 09-09-2024 End: 09-09-2024 Patient encounter procedure Leora Ha MD Work Phone: General Surgery Comment on above: Incisional hernia, w ithout obstruction or gangrene (Primary Dx); Diastasis recti Start: 09-09-2024 End: 09-09-2024 [facility] Facility:[facility] Start: 09-04-2024 End: 09-25-2024 Patient encounter procedure Brigette Martin APRN.CAREER SERVICES OFFICER Work Phone: [facility] Comment on above: Referral Start: 09-04-2024 End: 09-25-2024 ambulatory Brigette Martin ICE BAG ASSEMBLER.CAREER SERVICES OFFICER Work Phone: [facility] Start: 09-01-2024 End: 09-01-2024 Patient encounter procedure Lisa Rodríguez PA-C Work Phone: Orthopaedics Comment on above: Acute pain of left k nee (Primary Dx) Start: 09-01-2024 End: 09-01-2024 ambulatory LISA RODRÍGUEZ Facility:[facility] Start: 07-08-2024 End: 07-08-2024 ambulatory ELANA NOEL Facility:[facility] Start: 07-08-2024 End: 07-08-2024 Patient encounter procedure Jason Scruggs MD Work Phone: Dermatology Comment on above: Rash and nonspecific skin eruption; Intertrigo; S/P laparoscopic sleeve gastrectomy; Obesity, Class I, BMI 30.0-34.9 (see actual BMI) Start: 06-27-2024 End: 06-27-2024 ambulatory Thomas Fairwater Facility:[facility] Start: 06-11-2024 End: 06-11-2024 Office outpatient visit 25 minutes Brigette Martin APRN.CAREER SERVICES OFFICER Work Phone: [facility] Comment on above: Vertigo (Primary Dx) ; Headache, unspecified headache type Start: 06-11-2024 End: 06-11-2024 ambulatory BRIGETTE SARA Facility:[facility] Start: 06-10-2024 End: 06-10-2024 ambulatory Heather O'Emile PT [facility] Physical [facility] Comment on above: Acute pain of left k nee (Primary Dx) Start: 06-07-2024 End: 06-07-2024 Emergency department patient visit Dandre Laird Facility:[facility] Start: 06-07-2024 End: 06-07-2024 ambulatory [facility] Facility:[facility] Start: 05-26-2024 End: 05-26-2024 ambulatory Heather O'Emile PT [facility] Physical [facility] Comment on above: Acute pain of left k nee (Primary Dx) Start: 05-22-2024 End: 05-29-2024 Telephone encounter Elana Noel MD Work Phone: [facility] Comment on above: Appointment; Orders Start: 05-22-2024 End: 05-22-2024 ambulatory Lisa Vetovitz PA-C Work Phone: Orthopaedics Comment on above: Knee Start: 05-22-2024 End: 05-22-2024 Patient encounter procedure Elana Noel MD Work Phone: [facility] Comment on above: S/P laparoscopic sle nery gastrectomy (Primary Dx); Obesity, Class I, BMI 30.0-34.9 (see actual BMI); Rash and nonspecific skin eruption; Intertrigo Start: 05-22-2024 End: 05-22-2024 Telemedicine consultation with patient Elana Noel MD Work Phone: [facility] Start: 05-19-2024 End: 05-19-2024 ambulatory LISA VETOVITZ Facility:[facility] Start: 05-19-2024 End: 05-19-2024 Patient encounter procedure Lisa Vetovitz PA-C Work Phone: Orthopaedics Comment on above: Primary osteoarthrit is of both knees (Primary Dx); Acute pain of left knee Start: 05-13-2024 End: 05-15-2024 ambulatory Remedios Pepper APRN.CAREER SERVICES OFFICER Work Phone: [facility] Comment on above: Knee Start: 05-05-2024 End: 05-05-2024 Subsequent hospital visit by physician Davian [facility] Work Phone: Radiology Comment on above: Injury of left knee, initial encounter [S89.92XA] Start: 05-05-2024 End: 05-05-2024 Office outpatient visit 15 minutes Remedios Pepper ICE BAG ASSEMBLER.CAREER SERVICES OFFICER Work Phone: [facility] Comment on above: Injury of left knee, initial encounter (Primary Dx) Start: 05-05-2024 End: 05-05-2024 ambulatory BRIGETTE SARA Facility:[facility] Start: 05-02-2024 End: 05-02-2024 Admission to same day surgery center Mushtaq Lincoln RD Work Phone: General Surgery Comment on above: Class 1 obesity (Evelyne ludin Dx); Dietary counseling and surveillance; S/P laparoscopic sleeve gastrectomy Start: 05-02-2024 End: 05-02-2024 ambulatory MUSHTAQ LINCOLN Facility:[facility] Start: 05-02-2024 End: 05-02-2024 Telemedicine consultation with patient Mushtaq Lincoln RD Work Phone: General Surgery Start: 03-28-2024 End: 03-28-2024 ambulatory BRIGETTE MARTIN Facility:[facility] Start: 03-28-2024 End: 03-28-2024 Office outpatient visit 15 minutes Remedios A Julesan ICE BAG ASSEMBLER.CAREER SERVICES OFFICER Work Phone: [facility] Comment on above: Cervical radiculopat hy (Primary Dx); Primary hypertension; Acute bronchitis, unspecified organism; Vaginal yeast infection; Mild intermittent asthma without complication Start: 03-17-2024 End: 03-17-2024 Admission to same day surgery center Mushtaq Chucky BURK Work Phone: General Surgery Comment on above: Class 1 obesity (Evelyne ludin Dx); Dietary counseling and surveillance; S/P laparoscopic sleeve gastrectomy Start: 03-17-2024 End: 03-17-2024 Telemedicine consultation with patient Mushtaq Lincoln WM Work Phone: General Surgery Start: 03-07-2024 End: 03-07-2024 Office outpatient visit 15 minutes Remedios A Julsean ICE BAG ASSEMBLER.CAREER SERVICES OFFICER Work Phone: [facility] [place] Comment on above: Chronic insomnia (Pr imary Dx); Gastroesophageal reflux disease without esophagitis; Cervical radiculopathy; Primary hypertension Start: 02-26-2024 End: 02-26-2024 Chart abstracting Mushtaq Chucky BURK Work Phone: General Surgery Start: 02-22-2024 End: 02-22-2024 ambulatory Brigette Martin ICE BAG ASSEMBLER.CAREER SERVICES OFFICER Work Phone: [facility] Comment on above: Sunday Start: 02-22-2024 End: 02-22-2024 Office outpatient visit 15 minutes Remedios A Suppan ICE BAG ASSEMBLER.CAREER SERVICES OFFICER Work Phone: [facility] Comment on above: Cervical radiculopat hy (Primary Dx) Start: 02-08-2024 End: 02-08-2024 Office outpatient visit 25 minutes Meghana Wharton ICE BAG ASSEMBLER.CAREER SERVICES OFFICER Work Phone: [facility] Comment on above: Neck pain on left si de (Primary Dx); Acute pain of left shoulder; URI, acute; Dulce vaginitis; Acute non-recurrent pansinusitis Start: 01-11-2024 End: 01-11-2024 ambulatory [facility] Facility:[facility] Start: 01-04-2024 End: 01-04-2024 ambulatory [facility] Facility:[facility] Start: 12-20-2023 End: 12-20-2023 Admission to same day surgery center Elana Noel MD Work Phone: [facility] Comment on above: Obesity, Class I, BM I 30.0-34.9 (see actual BMI) (Primary Dx); S/P laparoscopic sleeve gastrectomy; S/P bariatric surgery Start: 12-20-2023 End: 12-20-2023 Telemedicine consultation with patient Elana Noel MD Work Phone: [facility] Start: 11-23-2023 End: 11-23-2023 Admission to same day surgery center Mushatq Lincoln RD Work Phone: General Surgery Comment on above: Class 1 obesity (Evelyne ludin Dx); Dietary counseling and surveillance; S/P laparoscopic sleeve gastrectomy Start: 11-23-2023 End: 11-23-2023 Telemedicine consultation with patient Mushtaq Lincoln RD Work Phone: General Surgery Start: 10-15-2023 End: 10-15-2023 Office outpatient visit 25 minutes Brigette Martin ICE BAG ASSEMBLER.CAREER SERVICES OFFICER Work Phone: [facility] Comment on above: Acute cough (Primary Dx) Start: 10-05-2023 End: 10-05-2023 ambulatory Pulm Lab [facility] Work Phone: [facility] Comment on above: Spirometry Start: 10-05-2023 End: 10-05-2023 Patient encounter procedure [facility] Work Phone: [facility] Start: 09-24-2023 Telephone encounter Brigette de la rosa APRN.CNP Work Phone: [facility] Comment on above: Orders Start: 09-19-2023 Documentation procedure Mammog joya Coordinator [facility] Department Start: 09-19-2023 Letter encounter Mammography Coordinator [facility] Department Start: 09-19-2023 End: 09-19-2023 Patient encounter procedure Brigette Martin APRN.CNP Work Phone: [facility] Comment on above: Wellness examination (Primary Dx); Mild intermittent asthma without complication; Obstructive sleep apnea (adult) (pediatric); Anxiety with depression; Chronic insomnia Start: 09-19-2023 End: 09-19-2023 Patient encounter status Brigette Martin APRN.CNP Work Phone: [facility] Start: 09-19-2023 End: 09-19-2023 Subsequent hospital visit by physician Screen Mammo [facility] Mammogram Comment on above: Encounter for screen ing mammogram for breast cancer [Z12.31] Start: 09-04-2023 End: 09-04-2023 Office outpatient visit 15 minutes Brigette Martin APRN.CNP Work Phone: [facility] Comment on above: Seasonal allergic rh initis due to pollen (Primary Dx) Start: 08-20-2023 End: 08-20-2023 Admission to same day surgery center Elana Noel MD Work Phone: Endocrinology BMI Comment on above: S/P laparoscopic sle nery gastrectomy (Primary Dx); Obesity, Class II, BMI 35-39.9; S/P bariatric surgery Start: 08-20-2023 End: 08-20-2023 Telemedicine consultation with patient Elana Noel MD Work Phone: [facility] Start: 04-27-2023 Telephone encounter Rachel Nielsen RN General Surgery Comment on above: Preparations For Edna fazal Start: 04-26-2023 End: 04-26-[address] Work Phone: General Surgery Comment on above: Obesity, Class III, BMI 40-49.9 (morbid obesity) (HCC) (Primary Dx); Dietary counseling and surveillance Start: 04-26-2023 End: 04-26-2023 Telemedicine consultation with patient Lakshmi Ribeiro RD Work Phone: [facility] Start: 04-23-2023 Telephone encounter Rachel Nielsen RN General Surgery Comment on above: Schedule Surgery Start: 04-10-2023 End: 04-10-[address] [place] [address] Work Phone: General Surgery Comment on above: Class 3 obesity (HCC ) (Primary Dx); Dietary counseling and surveillance Start: 04-10-2023 End: 04-10-2023 Telemedicine consultation with patient Mushtaq [place] RD Work Phone: [facility] Start: 03-03-2023 ambulatory Israel OATES-C Work Phone: [facility] Comment on above: Positive Covid Start: 03-03-2023 Telephone encounter Israel Millard PA-C Work Phone: [facility] Start: 02-14-2023 ambulatory Brigette Mario YEBOAH Work Phone: Internal Medicine [facility] Start: 02-13-2023 End: 02-13-2023 Nursing evaluation of patient and report Mi Nurse Work Phone: [facility] Comment on above: Class 3 severe obesi ty with serious comorbidity and body mass index (BMI) of 40.0 to 44.9 in adult, unspecified obesity type (HCC) Start: 02-13-2023 End: 02-13-2023 Subsequent hospital visit by physician Davian [facility] Work Phone: Radiology Comment on above: Class 3 severe obesi ty with serious comorbidity and body mass index (BMI) of 40.0 to 44.9 in adult, unspecified obesity type (HCC) [E66.01, Z68.41] Start: 02-05-2023 End: 02-05-2023 ambulatory Zeenat Fowler APRN.CAREER SERVICES OFFICER Work Phone: General Surgery Comment on above: Class 3 severe obesi ty with serious comorbidity and body mass index (BMI) of 40.0 to 44.9 in adult, unspecified obesity type (HCC) (Primary Dx) Morbid obesity (HCC) (Primary Dx); Obstructive sleep apnea (adult) (pediatric); NAFLD (nonalcoholic fatty liver disease) Start: 02-05-2023 End: 02-05-2023 Telemedicine consultation with patient Zeenat Fowler APRN.CAREER SERVICES OFFICER Work Phone: [facility] Start: 01-30-2023 End: 01-30-2023 Patient encounter procedure ANESTHESIOLOGY FACULTY-Mariaa Martin ANESTHESIOLOGY FACULTY Work Phone: [facility] Gastroenterology Work Phone: Start: 01-25-2023 End: 01-25-2023 ambulatory ANESTHESIOLOGY FACULTY-Mariaa Martin ANESTHESIOLOGY FACULTY Work Phone: [facility] Work Phone: Start: 01-25-2023 End: 01-25-2023 Patient encounter procedure ANESTHESIOLOGY FACULTY-Mariaa Martin NP Work Phone: [facility] Work Phone: Start: 11-15-2022 End: 11-15-2022 [facility] Kings Brooks PhD Work Phone: Endocrinology [facility] Comment on above: Recurrent major depr essive disorder, in full remission (HCC) (Primary Dx); Anxiety; Eating disorder, unspecified type; Psychological factors affecting morbid obesity (HCC) Start: 10-25-2022 End: 10-25-2022 [facility] Kings Brooks PhD Work Phone: Endocrinology [facility] Comment on above: Eating disorder, uns pecified type (Primary Dx); Recurrent major depressive disorder, in full remission (HCC); Anxiety; Psychological factors affecting morbid obesity (HCC) Start: 10-18-2022 End: 10-18-2022 [facility] Kings Brooks PhD Work Phone: Endocrinology [facility] Comment on above: Eating disorder, uns pecified type (Primary Dx); Recurrent major depressive disorder, in full remission (HCC); Anxiety; Psychological factors affecting morbid obesity (HCC) Start: 10-12-2022 End: 10-12-2022 ambulatory ANESTHESIOLOGY FACULTY-C Brigette Martin ANESTHESIOLOGY FACULTY Work Phone: [facility] Work Phone: Start: 10-12-2022 End: 10-12-2022 Patient encounter procedure ANESTHESIOLOGY FACULTY-Mariaa Martin ANESTHESIOLOGY FACULTY Work Phone: [facility] Start: 10-11-2022 End: 10-11-2022 [facility] Brinda Brooks PhD Work Phone: Endocrinology [facility] Comment on above: Eating disorder, uns pecified type (Primary Dx); Recurrent major depressive disorder, in full remission (HCC); Anxiety; Psychological factors affecting morbid obesity (HCC) Start: 09-15-2022 End: 09-15-2022 ambulatory ANESTHESIOLOGY FACULTY-Mariaa Martin ANESTHESIOLOGY FACULTY Work Phone: [facility] Work Phone: Start: 09-15-2022 End: 09-15-2022 Patient encounter procedure ANESTHESIOLOGY FACULTY-Mariaa Martin ANESTHESIOLOGY FACULTY Work Phone: [facility] Gastroenterology Start: 09-03-2022 Refill Rain griffiths APRN.CNP Work Phone: Neurology Comment on above: Refill Request Start: 09-01-2022 End: 09-01-2022 [facility] Brinda Brooks PhD Work Phone: Endocrinology [facility] Comment on above: Recurrent major depr essive disorder, in full remission (HCC) (Primary Dx); Eating disorder, unspecified type Start: 08-04-2022 End: 08-04-2022 ambulatory Brinda Brooks PhD Work Phone: Endocrinology [facility] Comment on above: Psychological factor s affecting morbid obesity (HCC) (Primary Dx) Start: 08-04-2022 End: 08-04-2022 Telemedicine consultation with patient Brinda Brooks PhD Work Phone: [facility] Start: 08-03-2022 End: 08-03-2022 Patient encounter procedure Carly Colón APRN.CAREER SERVICES OFFICER Work Phone: Dermatology Comment on above: Seborrheic keratosis (Primary Dx) Start: 08-02-2022 End: 08-02-2022 Office outpatient visit 15 minutes Brigette Martin APRN.CAREER SERVICES OFFICER Work Phone: [facility] Comment on above: Candidiasis, cutaneo us (Primary Dx); Facial lesion Start: 07-06-2022 ambulatory Brigette Martin APRN.CAREER SERVICES OFFICER Work Phone: [facility] Comment on above: Lab results Start: 06-23-2022 Telephone encounter Brigette de la rosa APRN.CAREER SERVICES OFFICER Work Phone: [facility] Comment on above: Results Start: 06-19-2022 End: 06-19-2022 Office outpatient visit 25 minutes Brigette Martin APRN.CAREER SERVICES OFFICER Work Phone: [facility] Comment on above: Elevated liver enzym es (Primary Dx); Gallbladder polyp; Obesity, Class III, BMI 40-49.9 (morbid obesity) (HCC) Start: 06-16-2022 End: 06-16-2022 Subsequent hospital visit by physician [facility] Work Phone: Radiology Comment on above: Elevated liver enzym es [R74.8] Start: 06-14-2022 End: 06-15-2022 ambulatory Rain Foster APRN.CNP Work Phone: Neurology Comment on above: lab results Start: 06-14-2022 E-mail encounter fahad marino caregiver Rain Foster APRN.CNP Work Phone: [facility] Start: 06-14-2022 Telephone encounter Brigette de la rosa APRN.CNP Work Phone: [facility] Comment on above: Results Start: 02-13-2022 End: 02-13-2022 Subsequent hospital visit by physician Leora Ha MD Work Phone: Ambulatory Surgery Comment on above: Screening for colon cancer [Z12.11] Start: 01-09-2022 Documentation procedure [facility]og joya [facility] Start: 01-09-2022 Letter encounter Mammography Coordinator [facility] Department Start: 01-09-2022 End: 01-09-2022 Subsequent hospital visit by physician Screen Mammo [facility] Mammogram Comment on above: Encounter for screen ing mammogram for malignant neoplasm of breast [Z12.31] Start: 12-09-2021 End: 12-09-2021 Patient encounter procedure Taylor Champion PA-C Work Phone: General Surgery Comment on above: Encounter for screen ing for malignant neoplasm of colon (Primary Dx); Family history of colonic polyps Start: 10-31-2021 ambulatory Brigette Martin APRN.CAREER SERVICES OFFICER Work Phone: [facility] Start: 10-31-2021 Patient encounter procedure Brigette Martin APRN.CAREER SERVICES OFFICER Work Phone: [facility] Comment on above: Outpatient [place] py Start: 11-29-2020 End: 11-29-2020 Subsequent hospital visit by physician Xr [facility] Work Phone: Radiology Comment on above: Acute left-sided low back pain with left-sided sciatica [M54.42] Procedures Date Procedure Procedure Detail Performing Clinician Start: 01-01-2025 Arthrocentesis aspir &/inj major jt/bursa w/o us Lisa Vetovitz PA-C Work Phone: Start: 11-07-2024 Radiologic exam ches t 2 views Nohemi Newton ICE BAG ASSEMBLER.CAREER SERVICES OFFICER Work Phone: Start: 09-01-2024 Arthrocentesis aspir &/inj major jt/bursa w/o us Lisa Vetovitz PA-C Work Phone: Start: 05-19-2024 Arthrocentesis aspir &/inj major jt/bursa w/o us Lisa Vetovitz PA-C Work Phone: Start: 10-05-2023 Brncdilat rspse spmt ry pre&post-brncdilat admn Brigette Martin ICE BAG ASSEMBLER.CAREER SERVICES OFFICER Work Phone: Start: 10-05-2023 Lipid 1996 panel - S autumn or Plasma Brigette Martin ICE BAG ASSEMBLER.CAREER SERVICES OFFICER Work Phone: Start: 09-19-2023 Screening mammograph y bi 2-view breast inc cad Bulk Order Provider Start: 02-13-2023 Radiologic exam ches t 2 views Zeenat Fowler ICE BAG ASSEMBLER.CAREER SERVICES OFFICER Work Phone: Start: 02-13-2023 Lipid 1996 panel - S autumn or Plasma Mi Nurse Work Phone: Start: 10-12-2022 Ultrasonography of abdomen ANESTHESIOLOGY FACULTY-C Brigette Martin ANESTHESIOLOGY FACULTY Work Phone: Start: 10-12-2022 Ultrasound elastography ANESTHESIOLOGY FACULTY-C Brigette Martin ANESTHESIOLOGY FACULTY Work Phone: Start: 06-16-2022 Us abdominal real ti me w/image limited Brigette Martin APRN.CAREER SERVICES OFFICER Work Phone: Start: 02-13-2022 Colonoscopy flx dx w /collj spec when pfrmd Taylor Champion PA-C Work Phone: Start: 02-13-2022 Colonoscopy Leora dhillon MD Work Phone: Start: 01-09-2022 End: 01-09-2022 Screening mammography bi 2-view breast inc cad Vianey Martin ICE BAG ASSEMBLER.CAREER SERVICES OFFICER Work Phone: Start: 01-04-2021 Mammography Brigette de la rosa ICE BAG ASSEMBLER.CAREER SERVICES OFFICER Work Phone: Start: 11-29-2020 Radex spine lumbosac ral 2/3 views Wood Mace MD Work Phone: Start: 03-12-2019 Lipid 1996 panel - S autumn or Plasma Zeenat Fowler ICE BAG ASSEMBLER.CAREER SERVICES OFFICER Work Phone: Plan of Treatment Date Care Activity Detail Author Start: 02-14-2032 Colonoscopy COLONOSCOPY [facility] Start: 02-14-2032 COLORECTAL CANCER SCREENING COLORECTAL CANCER SCREENING [facility] Start: 02-14-2032 Screening for malign ant neoplasm of colon [facility] Start: 02-20-2029 Urine microalbumin profile [facility] Start: 2028 Lipid panel Lipid Screening [facility] Start: 02-14-2028 Lipid 1996 panel - Serum or Plasma Lipid Screening [facility] Start: 02-14-2028 Lipid panel Lipid Screening [facility] Start: 05-26-2027 Diabetes Screening Diabetes Screenin g [facility] Start: 2026 Diabetes Screening Diabetes Screenin g [facility] Start: 05-12-2026 Diabetes Screening Diabetes Screenin g [facility] Start: 02-13-2026 Diabetes Screening Diabetes Screenin g [facility] Start: 11-28-2025 Annual PCP Team Shipping Clerk/Admin ana Disease Visit Annual PCP Team Chronic Disease Visit [facility] Start: 11-17-2025 Annual PCP Team Shipping Clerk/Admin ana Disease Visit Annual PCP Team Chronic Disease Visit [facility] Start: 11-06-2025 Screening for malign ant neoplasm of breast Mammogram Screening [facility] Start: 09-29-2025 End: 10-29-2025 CT Chest WO contrast CT CHEST WO IVCON Radiology Routine Lung nodule Expected: 09/29/2025, Expires: 10/29/2025 [facility] Work Phone: Comment on above: Expected: 09/29/2025 , Expires: 10/29/2025 Start: 09-09-2025 BP Controlled (<130/80) BP Controlle d (<130/80) [facility] Start: 06-14-2025 DIABETES SCREEN DIABETES SCREEN [facility] Start: 06-14-2025 Diabetes Screening Diabetes Screenin g [facility] Start: 06-11-2025 Annual PCP Team Shipping Clerk/Admin ana Disease Visit Annual PCP Team Chronic Disease Visit [facility] Start: 06-07-2025 BP Controlled (<130/80) BP Controlle d (<130/80) [facility] Start: 05-12-2025 End: 05-12-2025 Admission to same day surgery center 05/12/2025 1:30 PM [facility] General Surgery [address] [place], [place] [id number] Mushtaq [place], WM [address] [place] [address] 2 years post op lsg General Surgery Comment on above: 2 years post op lsg Start: 05-07-2025 Subsequent hospital visit by physician 05/07/2025 Hospital Encounter Surgery Center [address] [address] Liza Avila MD [address] [place] [address] Symptomatic abdominal panniculus [E65], History of weight loss [Z87.898], History of bariatric surgery [Z98.84], Intertrigo [L30.4] Surgery Center Comment on above: Symptomatic abdomina l panniculus [E65], History of weight loss [Z87.898], History of bariatric surgery [Z98.84], Intertrigo [L30.4] Start: 05-05-2025 Annual PCP Team Shipping Clerk/Admin ana Disease Visit Annual PCP Team Chronic Disease Visit [facility] Start: 05-05-2025 BP Controlled (<130/80) BP Controlle d (<130/80) [facility] Start: 04-06-2025 End: 04-06-2025 Patient encounter procedure 04/06/2025 8:30 AM EST Office Visit Orthopaedics [address] [place] [address] Lisa Rodríguez PA-C [address] [place] [address] CSI injection- last inj 01/01/2025 Orthopaedics Comment on above: CSI injection- last inj 01/01/2025 Start: 03-28-2025 BP Controlled (<130/80) BP Controlle d (<130/80) [facility] Start: 03-28-2025 Covid-19 Vaccine ( season) Covid-19 Vaccine () [facility] Comment on above: Postponed from 01/12 (Declined at this time) Start: 02-07-2025 Annual PCP Team Shipping Clerk/Admin ana Disease Visit Annual PCP Team Chronic Disease Visit [facility] Start: 01-22-2025 End: 01-22-2025 Patient encounter procedure 01/22/2025 2:15 PM EDT Office Visit Plastic Surgery [address] [address] Liza Avila MD [address] [place] [address] Consult of unbiblical hernia repair / Abdominoplasty Plastic Surgery Comment on above: Consult of unbiblica l hernia repair / Abdominoplasty Start: 01-13-2025 End: 01-13-2025 Patient encounter procedure 01/13/2025 2:30 PM EDT Office Visit Dermatology [address] [place] [address] Carly Colón APRN.CAREER SERVICES OFFICER [address] [place] [address] [facility] Dermatology Comment on above: [facility] Start: 01-12-2025 Influenza vaccination C [facility] Start: 01-05-2025 End: 01-05-2025 Patient encounter procedure 01/05/2025 1:30 PM EDT Office Visit General Surgery [address] [address] Vik Henderson MD [address] [place] [address] Diastasis recti [M62.08] General Surgery Comment on above: Diastasis recti [M62 .08] Start: 01-01-2025 End: 01-01-2025 Patient encounter procedure 01/01/2025 11:45 AM EDT Office Visit Orthopaedics [address] [id number] Lisa Rodríguez PA-C [address] [place] [address] Cortisone injection Orthopaedics Comment on above: Cortisone injection Start: 12-04-2024 End: 12-04-2024 Patient encounter procedure 12/04/2024 7:00 AM EDT Office Visit Dermatology [address] [place] [address] Carly Colón, ICE BAG ASSEMBLER.CAREER SERVICES OFFICER [address] [place] [address] Dx: Skin mole [D22.9] Dermatology Comment on above: Dx: Skin mole [D22.9 ] Start: 11-28-2024 End: 11-28-2024 Patient encounter procedure 11/28/2024 2:20 PM EDT Office Visit [facility] [address] [facility], [place] [id number] Brigette Martin, ICE BAG ASSEMBLER.CAREER SERVICES OFFICER [address] [place] [address] physical [facility] Comment on above: physical Start: 11-17-2024 End: 11-17-2024 Patient encounter procedure 11/17/2024 9:00 AM EDT Office Visit Family [facility] [address] [place] [address] Brigette Martin, ICE BAG ASSEMBLER.CAREER SERVICES OFFICER [address] [place] [address] f/u urgent care 11/07 [facility] Comment on above: f/u urgent care 11/07 Start: 11-10-2024 Influenza vaccination Influenza Vacc ine (#1) [facility] Comment on above: Postponed from 01/12 (Declined at this time) Start: 11-07-2024 End: 11-07-2024 Follow-up encounter 11/07/2024 8:00 AM EDT Education General Surgery [address] [place], [place] [id number] Mushtaq [place], RD [address] [place] [address] follow up 18 months post op lsg General Surgery Comment on above: follow up 18 months post op lsg Start: 10-14-2024 Annual PCP Team Shipping Clerk/Admin ana Disease Visit Annual PCP Team Chronic Disease Visit [facility] Start: 2024 Pneumococcal Vaccine : 50+ (2 of 2 - PCV) Pneumococcal Vaccine: 50+ (2 of 2 - PCV) [facility] Start: 2024 Shingrix Vaccine (1 of 2) Shingrix Vaccine (1 of 2) [facility] Start: 09-19-2024 End: 09-19-2024 Patient encounter procedure Cat Scan Comment on above: Incisional hernia, w ithout obstruction or gangrene [K43.2] Start: 09-18-2024 Annual PCP Team Shipping Clerk/Admin ana Disease Visit Annual PCP Team Chronic Disease Visit [facility] Start: 09-18-2024 Covid-19 Vaccine () Covid-19 Vaccine () [facility] Comment on above: Postponed from 01/12 (Declined at this time) Start: 09-18-2024 Hepatitis B Vaccine (1 of 3 - 19+ 3-dose series) Hepatitis B Vaccine (1 of 3 - 19+ 3-dose series) [facility] Comment on above: Postponed from 10/04 (Declined at this time) Start: 09-18-2024 HIV screening HIV Screening [facility] Comment on above: Postponed from 10/04 (Declined at this time) Start: 09-18-2024 Screening for malign ant neoplasm of breast Mammogram Screening [facility] Start: 09-04-2024 End: 09-04-2024 Patient encounter procedure 09/04/2024 11:30 AM EDT Office Visit Plastic Surgery [address] [place] [phone] Karely Plasencia MD [address] [place] [address] [place] [address] CONSULT TO PLASTIC SURGERY Plastic Surgery Comment on above: CONSULT TO PLASTIC S PRERNAERY Start: 09-03-2024 Annual PCP Team Shipping Clerk/Admin ana Disease Visit Annual PCP Team Chronic Disease Visit [facility] Start: 07-08-2024 End: 07-08-2024 Patient encounter procedure 07/08/2024 1:50 PM EST Office Visit Dermatology [address] [facility] [place] [address] [place] [address] [place] [address] Rash and nonspecific skin eruption [R21] Dermatology Comment on above: Rash and nonspecific skin eruption [R21] Start: 06-24-2024 End: 06-24-2024 ambulatory 06/24/2024 8:15 AM EST OT/PT/Speech Visit [facility] [address] [place] [address] Heather De Leon, PT M25.562 (ICD-10-CM) - Acute pain of left knee [facility] Comment on above: M25.562 (ICD-10-CM) - Acute pain of left knee Start: 06-17-2024 End: 06-17-2024 ambulatory 06/17/2024 8:15 AM EST OT/PT/Speech Visit [facility] [address] [place] [address] Heather De Leon, PT M25.562 (ICD-10-CM) - Acute pain of left knee [facility] Comment on above: M25.562 (ICD-10-CM) - Acute pain of left knee Start: 06-11-2024 End: 06-11-2024 Patient encounter procedure 06/11/2024 9:20 AM EST Office Visit Family [facility] [address] [place] [address] Brigette Martin, SENIA.CAREER SERVICES OFFICER [address] [place] [address] [facility] ER follow up 06/07/24 [facility] Comment on above: [facility] ER follow up 05/15 10/05 [facility] Start: 06-10-2024 End: 06-10-2024 ambulatory 06/10/2024 8:15 AM EST OT/PT/Speech Visit [facility] [address] [place] [address] O'Heather Baptiste, PT M25.562 (ICD-10-CM) - Acute pain of left knee [facility] Comment on above: M25.562 (ICD-10-CM) - Acute pain of left knee Start: 06-02-2024 End: 06-02-2024 ambulatory 06/02/2024 10:15 AM EST OT/PT/Speech Visit [facility] [address] [place] [address] O'Heather Baptiste, PT M25.562 (ICD-10-CM) - Acute pain of left knee [facility] Comment on above: M25.562 (ICD-10-CM) - Acute pain of left knee Start: 05-29-2024 End: 08-28-2024 CBC W Auto Differential panel - Blood COMPLETE BLOOD COUNT AND DIFFERENTIAL Lab Routine Abnormal blood cell count Expected: 05/29/2024, Expires: 08/28/2024 [facility] Work Phone: Comment on above: Expected: 05/29/2024 , Expires: 08/28/2024 Start: 05-26-2024 End: 05-26-2024 ambulatory 05/26/2024 2:00 PM EST OT/PT/Speech Visit [facility] [address] [place] [address] O'Heather Baptiste, PT Acute pain of left knee [M25.562] [facility] Comment on above: Acute pain of left k nee [M25.562] Start: 05-22-2024 End: 08-21-2024 25-hydroxyvitamin D3 [Mass/volume] in Serum or Plasma VITAMIN D 25 HYDROXY Lab Routine Rash and nonspecific skin eruption Intertrigo S/P laparoscopic sleeve gastrectomy Obesity, Class I, BMI 30.0-34.9 (see actual BMI) Expected: 05/22/2024, Expires: 08/21/2024 [facility] Comment on above: Expected: 05/22/2024 , Expires: 08/21/2024 Start: 05-22-2024 End: 08-21-2024 CBC panel - Blood by Automated count COMPLETE BLOOD COUNT Lab Routine Rash and nonspecific skin eruption Intertrigo S/P laparoscopic sleeve gastrectomy Obesity, Class I, BMI 30.0-34.9 (see actual BMI) Expected: 05/22/2024, Expires: 08/21/2024 [facility] Work Phone: Comment on above: Expected: 05/22/2024 , Expires: 08/21/2024 Start: 05-22-2024 End: 08-21-2024 Cobalamin (Vitamin B12) [Mass/volume] in Serum or Plasma VITAMIN B12 Lab Routine Rash and nonspecific skin eruption Intertrigo S/P laparoscopic sleeve gastrectomy Obesity, Class I, BMI 30.0-34.9 (see actual BMI) Expected: 05/22/2024, Expires: 08/21/2024 [facility] Comment on above: Expected: 05/22/2024 , Expires: 08/21/2024 Start: 05-22-2024 End: 08-21-2024 Comprehensive metabolic 2000 panel - Serum or Plasma COMPREHENSIVE METABOLIC PANEL Lab Routine Rash and nonspecific skin eruption Intertrigo S/P laparoscopic sleeve gastrectomy Obesity, Class I, BMI 30.0-34.9 (see actual BMI) Expected: 05/22/2024, Expires: 08/21/2024 [facility] Comment on above: Expected: 05/22/2024 , Expires: 08/21/2024 Start: 05-22-2024 End: 08-21-2024 Folate [Mass/volume] in Serum or Plasma FOLATE, SERUM Lab Routine Rash and nonspecific skin eruption Intertrigo S/P laparoscopic sleeve gastrectomy Obesity, Class I, BMI 30.0-34.9 (see actual BMI) Expected: 05/22/2024, Expires: 08/21/2024 [facility] Comment on above: Expected: 05/22/2024 , Expires: 08/21/2024 Start: 05-22-2024 End: 08-21-2024 Hemoglobin A1c in Blood HEMOGLOBIN A1C Lab Routine Rash and nonspecific skin eruption Intertrigo S/P laparoscopic sleeve gastrectomy Obesity, Class I, BMI 30.0-34.9 (see actual BMI) Expected: 05/22/2024, Expires: 08/21/2024 [facility] Comment on above: Expected: 05/22/2024 , Expires: 08/21/2024 Start: 05-22-2024 End: 08-21-2024 Iron and Iron binding capacity panel - Serum or Plasma IRON AND TIBC Lab Routine Rash and nonspecific skin eruption Intertrigo S/P laparoscopic sleeve gastrectomy Obesity, Class I, BMI 30.0-34.9 (see actual BMI) Expected: 05/22/2024, Expires: 08/21/2024 [facility] Comment on above: Expected: 05/22/2024 , Expires: 08/21/2024 Start: 05-22-2024 End: 08-21-2024 Parathyrin.intact [Mass/volume] in Serum or Plasma PTH INTACT Lab Routine Rash and nonspecific skin eruption Intertrigo S/P laparoscopic sleeve gastrectomy Obesity, Class I, BMI 30.0-34.9 (see actual BMI) Expected: 05/22/2024, Expires: 08/21/2024 [facility] Comment on above: Expected: 05/22/2024 , Expires: 08/21/2024 Start: 05-22-2024 End: 08-21-2024 Thyrotropin [Units/volume] in Serum or Plasma THYROID STIMULATING HORMONE Lab Routine Rash and nonspecific skin eruption Intertrigo S/P laparoscopic sleeve gastrectomy Obesity, Class I, BMI 30.0-34.9 (see actual BMI) Expected: 05/22/2024, Expires: 08/21/2024 [facility] Comment on above: Expected: 05/22/2024 , Expires: 08/21/2024 Start: 05-22-2024 End: 08-21-2024 VITAMIN B1 (THIAMINE), WHOLE BLOOD VITAMIN B1 (THIAMINE), WHOLE BLOOD Lab Routine Rash and nonspecific skin eruption Intertrigo S/P laparoscopic sleeve gastrectomy Obesity, Class I, BMI 30.0-34.9 (see actual BMI) Expected: 05/22/2024, Expires: 08/21/2024 [facility] Comment on above: Expected: 05/22/2024 , Expires: 08/21/2024 Start: 05-22-2024 End: 05-22-2024 Follow-up encounter 05/22/2024 10:00 AM [facility] BMI C REJ [id number] [place] [address] Elana Noel MD [address] [place], [place] [id number] follow up BMI [facility] REJ Comment on above: follow up Start: 05-19-2024 End: 05-19-2024 Patient encounter procedure 05/19/2024 9:30 AM EST Office Visit Orthopaedics [address] [place] [address] Lisa Rodríguez PA-C [address] [place] [address] Acute pain of left knee [M25.562] Orthopaedics Comment on above: Acute pain of left k nee [M25.562] Start: 05-05-2024 End: 06-04-2025 XR Knee - left 4 Views [facility] Work Phone: Comment on above: Expected: 05/05/2024 , Expires: 06/04/2025 Start: 05-02-2024 End: 05-02-2024 Admission to same day surgery center 05/02/2024 11:30 AM EST [facility] General Surgery [address] [place] [address] [place], [place] [id number] 1 year post op lsg General Surgery Comment on above: 1 year post op lsg Start: 03-28-2024 End: 03-28-2024 Patient encounter procedure 03/28/2024 8:00 AM EST Office Visit [facility] [address] [place], [place] [phone] Remedios Pepper APRN.CAREER SERVICES OFFICER [address] [place], [place] [address] 3 week of follow up [facility] Comment on above: 3 week of follow up Start: 03-17-2024 End: 03-17-2024 Follow-up encounter 03/17/2024 8:45 AM EST [facility] Surgery [address] [place] [address] Mushtaq Lincoln, RD [address] [place], [place] [phone] follow up General Surgery Comment on above: follow up Start: 03-12-2024 Lipid 1996 panel - Serum or Plasma Lipid Screening [facility] Start: 03-12-2024 LIPID SCREEN LIPID SCREEN [facility] Start: 03-07-2024 End: 03-07-2024 Patient encounter procedure 03/07/2024 8:00 AM EDT Office Visit [facility] [address] [place], [place] [phone] Remedios Pepper APRN.CAREER SERVICES OFFICER [address] [place], [place] [id number] 2 week cerical radiculopathy f/u [facility] Comment on above: 2 week cerical radic ulopathy f/u Start: 03-02-2024 Annual PCP Team Shipping Clerk/Admin ana Disease Visit Annual PCP Team Chronic Disease Visit [facility] Start: 02-26-2024 End: 02-26-2024 Follow-up encounter 02/26/2024 8:00 AM EDT [facility] [address] [place] [address] Mushtaq Lincoln, RD [address] [place], [place] [phone] follow up General Surgery Comment on above: follow up Start: 01-13-2024 Covid-19 Vaccine ( season) Covid-19 Vaccine ( season) [facility] Start: 01-13-2024 Covid-19 Vaccine ( season) Covid-19 Vaccine ( season) [facility] Start: 01-13-2024 Influenza vaccination C [facility] Start: 12-20-2023 End: 03-20-2024 Cobalamin (Vitamin B12) [Mass/volume] in Serum or Plasma VITAMIN B12 Lab Routine S/P bariatric surgery Obesity, Class I, BMI 30.0-34.9 (see actual BMI) S/P laparoscopic sleeve gastrectomy Expected: 12/20/2023, Expires: 03/20/2024 [facility] Comment on above: Expected: 12/20/2023 , Expires: 03/20/2024 Start: 12-20-2023 End: 03-20-2024 Folate [Mass/volume] in Serum or Plasma FOLATE, SERUM Lab Routine S/P bariatric surgery Obesity, Class I, BMI 30.0-34.9 (see actual BMI) S/P laparoscopic sleeve gastrectomy Expected: 12/20/2023, Expires: 03/20/2024 [facility] Work Phone: Comment on above: Expected: 12/20/2023 , Expires: 03/20/2024 Start: 12-20-2023 End: 03-20-2024 Hemoglobin A1c in Blood HEMOGLOBIN A1C Lab Routine S/P bariatric surgery Obesity, Class I, BMI 30.0-34.9 (see actual BMI) S/P laparoscopic sleeve gastrectomy Expected: 12/20/2023, Expires: 03/20/2024 [facility] Comment on above: Expected: 12/20/2023 , Expires: 03/20/2024 Start: 12-20-2023 End: 03-20-2024 Iron and Iron binding capacity panel - Serum or Plasma IRON AND TIBC Lab Routine S/P bariatric surgery Obesity, Class I, BMI 30.0-34.9 (see actual BMI) S/P laparoscopic sleeve gastrectomy Expected: 12/20/2023, Expires: 03/20/2024 [facility] Comment on above: Expected: 12/20/2023 , Expires: 03/20/2024 Start: 12-20-2023 End: 03-20-2024 Parathyrin.intact [Mass/volume] in Serum or Plasma PTH INTACT Lab Routine S/P bariatric surgery Obesity, Class I, BMI 30.0-34.9 (see actual BMI) S/P laparoscopic sleeve gastrectomy Expected: 12/20/2023, Expires: 03/20/2024 [facility] Comment on above: Expected: 12/20/2023 , Expires: 03/20/2024 Start: 12-20-2023 End: 03-20-2024 Thyrotropin [Units/volume] in Serum or Plasma THYROID STIMULATING HORMONE Lab Routine S/P bariatric surgery Obesity, Class I, BMI 30.0-34.9 (see actual BMI) S/P laparoscopic sleeve gastrectomy Expected: 12/20/2023, Expires: 03/20/2024 [facility] Comment on above: Expected: 12/20/2023 , Expires: 03/20/2024 Start: 12-20-2023 End: 03-20-2024 VITAMIN B1 (THIAMINE), WHOLE BLOOD VITAMIN B1 (THIAMINE), WHOLE BLOOD Lab Routine S/P bariatric surgery Obesity, Class I, BMI 30.0-34.9 (see actual BMI) S/P laparoscopic sleeve gastrectomy Expected: 12/20/2023, Expires: 03/20/2024 [facility] Comment on above: Expected: 12/20/2023 , Expires: 03/20/2024 Start: 12-20-2023 End: 12-20-2023 Follow-up encounter Endocrinology BMI Comment on above: follow up Start: 11-23-2023 End: 11-23-2023 Admission to same day surgery center 11/23/2023 8:00 AM EDT [facility] General Surgery [address] [phone] Mushtaq Lincoln, RD [address] [place], [place] [phone] 6 months post op lsg General Surgery Comment on above: 6 months post op lsg Start: 10-11-2023 ANNUAL PCP TEAM ARCHITECTURAL REPRESENTATIVE ANA DISEASE VISIT ANNUAL PCP TEAM CHRONIC DISEASE VISIT [facility] Start: 10-05-2023 End: 10-05-2023 ambulatory 10/05/2023 8:15 AM EDT Procedure PULM LAB [facility] [address] [place] [address] [facility], Pulm Lab [facility] [address] [place] [address] asthma PULM LAB [facility] Comment on above: asthma Start: 09-19-2023 End: 09-19-2023 Patient encounter procedure 09/19/2023 10:40 AM EDT Office Visit [facility] [address] [place], [place] [phone] Brigette Martin, SENIA.CAREER SERVICES OFFICER [address] [place] [address] Annual [facility] Comment on above: Annual Start: 09-19-2023 End: 09-19-2023 Patient encounter procedure 09/19/2023 7:50 AM EDT Appointment Mammogram [address] [place] [address] Encounter for screening mammogram for breast cancer [Z12.31] Mammogram Comment on above: Encounter for screen ing mammogram for breast cancer [Z12.31] Start: 08-03-2023 ANNUAL PCP TEAM ARCHITECTURAL REPRESENTATIVE ANA DISEASE VISIT ANNUAL PCP TEAM CHRONIC DISEASE VISIT [facility] Start: 06-19-2023 ANNUAL PCP TEAM ARCHITECTURAL REPRESENTATIVE ANA DISEASE VISIT ANNUAL PCP TEAM CHRONIC DISEASE VISIT [facility] Start: 02-15-2023 ANNUAL PCP TEAM ARCHITECTURAL REPRESENTATIVE ANA DISEASE VISIT ANNUAL PCP TEAM CHRONIC DISEASE VISIT [facility] Start: 02-13-2023 Colonoscopy COLONOSCOPY [facility] Start: 02-13-2023 COLORECTAL CANCER SCREENING COLORECTAL CANCER SCREENING [facility] Start: 02-05-2023 End: 04-07-2023 25-hydroxyvitamin D3 [Mass/volume] in Serum or Plasma VITAMIN D 25 HYDROXY Lab Routine Class 3 severe obesity with serious comorbidity and body mass index (BMI) of 40.0 to 44.9 in adult, unspecified obesity type (HCC) Expected: 02/05/2023, Expires: 04/07/2023 [facility] Work Phone: Comment on above: Expected: 02/05/2023 , Expires: 04/07/2023 Start: 02-05-2023 End: 04-07-2023 CBC W Auto Differential panel - Blood CBC + DIFF Lab Routine Class 3 severe obesity with serious comorbidity and body mass index (BMI) of 40.0 to 44.9 in adult, unspecified obesity type (HCC) Expected: 02/05/2023, Expires: 04/07/2023 [facility] Work Phone: Comment on above: Expected: 02/05/2023 , Expires: 04/07/2023 Start: 02-05-2023 End: 04-07-2023 Cobalamin (Vitamin B12) [Mass/volume] in Serum or Plasma VITAMIN B12 BLOOD Lab Routine Class 3 severe obesity with serious comorbidity and body mass index (BMI) of 40.0 to 44.9 in adult, unspecified obesity type (HCC) Expected: 02/05/2023, Expires: 04/07/2023 [facility] Work Phone: Comment on above: Expected: 02/05/2023 , Expires: 04/07/2023 Start: 02-05-2023 End: 04-07-2023 Comprehensive metabolic 2000 panel - Serum or Plasma COMP METABOLIC PANEL Lab Routine Class 3 severe obesity with serious comorbidity and body mass index (BMI) of 40.0 to 44.9 in adult, unspecified obesity type (HCC) Expected: 02/05/2023, Expires: 04/07/2023 [facility] Work Phone: Comment on above: Expected: 02/05/2023 , Expires: 04/07/2023 Start: 02-05-2023 End: 04-07-2023 Ferritin [Mass/volume] in Serum or Plasma FERRITIN BLD Lab Routine Class 3 severe obesity with serious comorbidity and body mass index (BMI) of 40.0 to 44.9 in adult, unspecified obesity type (HCC) Expected: 02/05/2023, Expires: 04/07/2023 [facility] Work Phone: Comment on above: Expected: 02/05/2023 , Expires: 04/07/2023 Start: 02-05-2023 End: 04-07-2023 Folate [Mass/volume] in Serum or Plasma FOLATE SERUM Lab Routine Class 3 severe obesity with serious comorbidity and body mass index (BMI) of 40.0 to 44.9 in adult, unspecified obesity type (HCC) Expected: 02/05/2023, Expires: 04/07/2023 [facility] Work Phone: Comment on above: Expected: 02/05/2023 , Expires: 04/07/2023 Start: 02-05-2023 End: 04-07-2023 Hemoglobin A1c in Blood HGB A1C Lab Routine Class 3 severe obesity with serious comorbidity and body mass index (BMI) of 40.0 to 44.9 in adult, unspecified obesity type (HCC) Expected: 02/05/2023, Expires: 04/07/2023 [facility] Work Phone: Comment on above: Expected: 02/05/2023 , Expires: 04/07/2023 Start: 02-05-2023 End: 04-07-2023 Iron and Iron binding capacity panel - Serum or Plasma IRON + TIBC Lab Routine Class 3 severe obesity with serious comorbidity and body mass index (BMI) of 40.0 to 44.9 in adult, unspecified obesity type (HCC) Expected: 02/05/2023, Expires: 04/07/2023 [facility] Work Phone: Comment on above: Expected: 02/05/2023 , Expires: 04/07/2023 Start: 02-05-2023 End: 04-07-2023 Lipid 1996 panel - Serum or Plasma LIPID PANEL BASIC Lab Routine Class 3 severe obesity with serious comorbidity and body mass index (BMI) of 40.0 to 44.9 in adult, unspecified obesity type (HCC) Expected: 02/05/2023, Expires: 04/07/2023 [facility] Work Phone: Comment on above: Expected: 02/05/2023 , Expires: 04/07/2023 Start: 02-05-2023 End: 04-07-2023 Natriuretic peptide.B prohormone N-Terminal [Mass/volume] in Serum or Plasma NT PRO BNP Lab Routine Class 3 severe obesity with serious comorbidity and body mass index (BMI) of 40.0 to 44.9 in adult, unspecified obesity type (HCC) Expected: 02/05/2023, Expires: 04/07/2023 [facility] Work Phone: Comment on above: Expected: 02/05/2023 , Expires: 04/07/2023 Start: 02-05-2023 End: 04-07-2023 Thyrotropin [Units/volume] in Serum or Plasma TSH BLD Lab Routine Class 3 severe obesity with serious comorbidity and body mass index (BMI) of 40.0 to 44.9 in adult, unspecified obesity type (HCC) Expected: 02/05/2023, Expires: 04/07/2023 [facility] Work Phone: Comment on above: Expected: 02/05/2023 , Expires: 04/07/2023 Start: 02-05-2023 End: 04-07-2023 VITAMIN B1 (THIAMINE), WHOLE BLOOD VITAMIN B1 (THIAMINE), WHOLE BLOOD Lab Routine Class 3 severe obesity with serious comorbidity and body mass index (BMI) of 40.0 to 44.9 in adult, unspecified obesity type (HCC) Expected: 02/05/2023, Expires: 04/07/2023 [facility] Work Phone: Comment on above: Expected: 02/05/2023 , Expires: 04/07/2023 Start: 01-12-2023 Covid-19 Vaccine () Covid-19 Vaccine () [facility] Start: 01-12-2023 Influenza vaccination C [facility] Start: 01-09-2023 Mammography [facility] Start: 01-09-2023 Screening for malign ant neoplasm of breast Mammogram Screening [facility] Start: 11-16-2022 End: 07-19-2023 Us abdominal real time w/image limited US ABD RT UPPER QUADRANT Radiology Routine Gallbladder polyp Expected: 11/16/2022, Expires: 07/19/2023 [facility] Work Phone: Comment on above: Expected: 11/16/2022 , Expires: 07/19/2023 Start: 09-04-2022 End: 11-04-2022 25-hydroxyvitamin D3 [Mass/volume] in Serum or Plasma VITAMIN D 25 HYDROXY Lab Routine Vitamin D deficiency Expected: 09/04/2022, Expires: 11/04/2022 [facility] Work Phone: Comment on above: Expected: 09/04/2022 , Expires: 11/04/2022 Start: 06-28-2022 HPV TESTING HPV TESTING [facility] Start: 06-28-2022 PAP TESTING PAP TESTING [facility] Start: 06-28-2022 Screening for malign ant neoplasm of cervix [facility] Start: 06-23-2022 End: 08-23-2022 Hepatic function 1999 panel - Serum or Plasma HEPATIC FUNCTION PNL Lab Routine Elevated liver enzymes Expected: 06/23/2022, Expires: 08/23/2022 [facility] Work Phone: Comment on above: Expected: 06/23/2022 , Expires: 08/23/2022 Start: 06-19-2022 End: 08-19-2022 Hepatic function 1999 panel - Serum or Plasma HEPATIC FUNCTION PNL Lab Routine Elevated liver enzymes Expected: 06/19/2022, Expires: 08/19/2022 [facility] Work Phone: Comment on above: Expected: 06/19/2022 , Expires: 08/19/2022 Start: 06-14-2022 End: 08-14-2022 Acute hepatitis 2000 panel - Serum HEP ACUTE PANEL BL Lab Routine Elevated liver enzymes Expected: 06/14/2022, Expires: 08/14/2022 [facility] Work Phone: Comment on above: Expected: 06/14/2022 , Expires: 08/14/2022 Start: 06-14-2022 End: 08-14-2022 CBC W Auto Differential panel - Blood CBC + DIFF Lab Routine Elevated liver enzymes Expected: 06/14/2022, Expires: 08/14/2022 [facility] Work Phone: Comment on above: Expected: 06/14/2022 , Expires: 08/14/2022 Start: 06-14-2022 End: 08-14-2022 Gamma glutamyl transferase [Enzymatic activity/volume] in Serum or Plasma GGT BLD Lab Routine Elevated liver enzymes Expected: 06/14/2022, Expires: 08/14/2022 [facility] Work Phone: Comment on above: Expected: 06/14/2022 , Expires: 08/14/2022 Start: 06-14-2022 End: 08-14-2022 Hepatic function 1999 panel - Serum or Plasma HEPATIC FUNCTION PNL Lab Routine Elevated liver enzymes Expected: 06/14/2022, Expires: 08/14/2022 [facility] Work Phone: Comment on above: Expected: 06/14/2022 , Expires: 08/14/2022 Start: 06-14-2022 End: 08-14-2022 Urinalysis complete panel - Urine URINALYSIS, WITH MICROSCOPIC Lab Routine Elevated liver enzymes Expected: 06/14/2022, Expires: 08/14/2022 [facility] Work Phone: Comment on above: Expected: 06/14/2022 , Expires: 08/14/2022 Start: 03-12-2022 DIABETES SCREEN DIABETES SCREEN [facility] Start: 03-01-2022 ANNUAL PCP TEAM ARCHITECTURAL REPRESENTATIVE ANA DISEASE VISIT ANNUAL PCP TEAM CHRONIC DISEASE VISIT [facility] Start: 03-01-2022 PNEUMOCOCCAL (2 - PCV) PNEUMOCOCCAL (2 - PCV) [facility] Start: 03-01-2022 Pneumococcal vaccination Pneumococcal Vaccine (2 - PCV) [facility] Start: 01-12-2022 Influenza vaccination INFLUENZA (#1) [facility] Start: 01-04-2022 Mammography MAMMOGRAM [facility] Start: 10-05-2019 COLOGUARD (FIT-DNA) COLOGUARD (FIT-D NA) [facility] Start: 10-05-2019 Colonoscopy COLONOSCOPY [facility] Start: 10-05-2019 COLORECTAL CANCER SCREENING COLORECTAL CANCER SCREENING [facility] Start: 10-05-[address] COLONOGRAPHY [facility] Start: 10-05-2019 FECAL OCCULT BLOOD FECAL OCCULT BLOO D [facility] Start: 10-05-2019 Screening for malign ant neoplasm of colon [facility] Start: 10-05-2019 SIGMOIDOSCOPY SIGMOIDOSCOPY [facility] Start: 1993 Hepatitis B Vaccine (1 of 3 - 19+ 3-dose series) Hepatitis B Vaccine (1 of 3 - 19+ 3-dose series) [facility] Start: 1992 BP Controlled (<130/80) BP Controlle d (<130/80) [facility] Start: 1992 HEPATITIS C SCREENING HEPATITIS C SC CHELSEA [facility] Start: 1992 HIV SCREENING HIV SCREENING [facility] Start: 1992 HIV screening HIV Screening [facility] Start: 1992 SPIROMETRY SPIROMETRY [facility] Start: 1992 zzBP Controlled (<130/80) (Retired) zzBP Controlled (<130/80) (Retired) [facility] Start: 10-05-1979 COVID-19 VACCINE (#1) COVID-19 VACCI NE (#1) [facility] Start: 04-06-1975 COVID-19 VACCINE (#1) COVID-19 VACCI NE (#1) [facility] Start: 1974 HEPATITIS B (1 of 3 - 3-dose series) HEPATITIS B (1 of 3 - 3-dose series) [facility] Start: 1974 Hepatitis B Vaccine (1 of 3 - 3-dose series) Hepatitis B Vaccine (1 of 3 - 3-dose series) [facility] End: 10-09-2025 CT Abdomen and Pelvis W contrast IV CT ABD/PEL W IVCON Radiology Routine Incisional hernia, without obstruction or gangrene 1 Occurrences starting 09/09/2024 until 10/09/2025 [facility] Work Phone: Comment on above: 1 Occurrences starti ng 09/09/2024 until 10/09/2025 CT Abdomen and Pelvi s W contrast IV CT ABD/PEL W IVCON Radiology Routine Incisional hernia, without obstruction or gangrene 09/23/2024 10:24 AM EDT [facility] Work Phone: DBT Breast - bilater al screening IRIS SCREENING W VIELKA Radiology Routine Encounter for screening mammogram for breast cancer 11/06/2024 1:13 PM EDT [facility] Work Phone: End: 02-06-2024 ECG COMPLETE ECG COMPLETE ECG Routine Class 3 severe obesity with serious comorbidity and body mass index (BMI) of 40.0 to 44.9 in adult, unspecified obesity type (HCC) 1 Occurrences starting 02/05/2023 until 02/06/2024 [facility] Work Phone: Comment on above: 1 Occurrences starti ng 02/05/2023 until 02/06/2024 Excision skin abd infraumbilical panniculectomy PANNICULECTOMY Symptomatic abdominal panniculus History of weight loss History [facility] End: 03-15-2024 IRIS SCREENING IRIS SCREENING Radiology Routine Encounter for screening mammogram for breast cancer 1 Occurrences starting 02/14/2023 until 03/15/2024 [facility] Work Phone: Comment on above: 1 Occurrences starti ng 02/14/2023 until 03/15/2024 End: 03-06-2024 Radiologic exam chest 2 views XR CHEST 2V FRONTAL/LAT Radiology Routine Class 3 severe obesity with serious comorbidity and body mass index (BMI) of 40.0 to 44.9 in adult, unspecified obesity type (HCC) 1 Occurrences starting 02/05/2023 until 03/06/2024 [facility] Work Phone: Comment on above: 1 Occurrences starti ng 02/05/2023 until 03/06/2024 End: 10-18-2024 SPIROMETRY - BASELINE AND POST DILATOR SPIROMETRY - BASELINE AND POST DILATOR PFT Routine Mild intermittent asthma without complication 1 Occurrences starting 09/19/2023 until 10/18/2024 [facility] Work Phone: Comment on above: 1 Occurrences starti ng 09/19/2023 until 10/18/2024 Ultrasound elastography [facility] End: 07-14-2023 Us abdominal real time w/image limited US ABD RT UPPER QUADRANT Radiology Routine Elevated liver enzymes 1 Occurrences starting 06/14/2022 until 07/14/2023 [facility] Work Phone: Comment on above: 1 Occurrences starti ng 06/14/2022 until 07/14/2023 [facility] Immunizations Immunization Date Immunization Notes Care Provider Jos roman 03-01-2021 influenza, injectabl e, quadrivalent, contains preservative Brigette Martin [employer] BAG ASSEMBLER.CAREER SERVICES OFFICER Work Phone: [facility] 03-01-2021 pneumococcal polysaccharide vaccine, 23 valent Brigette Martin ICE BAG ASSEMBLER.CAREER SERVICES OFFICER Work Phone: [facility] 03-01-2021 influenza virus vacc ine, unspecified formulation Zeenat Fowler ICE BAG ASSEMBLER.CAREER SERVICES OFFICER Work Phone: [facility] 02-20-2019 influenza, injectabl e, quadrivalent, contains preservative Brigette Martin ICE BAG ASSEMBLER.CAREER SERVICES OFFICER Work Phone: [facility] 02-20-2019 tetanus toxoid, redu cameron diphtheria toxoid, and acellular pertussis vaccine, adsorbed Brigette Martin ICE BAG ASSEMBLER.CAREER SERVICES OFFICER Work Phone: [facility] 02-11-2018 Influenza virus vaccine ANESTHESIOLOGY FACULTY-C Brigette Martin ANESTHESIOLOGY FACULTY Work Phone: [facility] 02-11-2006 influenza virus vacc ine, unspecified formulation Brigette Martin ICE BAG ASSEMBLER.CAREER SERVICES OFFICER Work Phone: [facility] Payers Date Payer Category Payer Self-pay [id number] 2018 Private Health Insurance [facility] CHO[facility] PLUS [id number] 2018-Present [phone] [address] [place] [address] O [id number] 2018 Private Health Insurance [id number] 2018 Unknown [id number] Unknown [id number] Unknown [id number] Unknown [id number] Unknown [id number] Unknown [id number] Unknown [id number] Social History Date Type Detail Facility Start: 08-03-2010 End: 02-08-2024 Tobacco smoking status NHIS Ex-smoker [facility] End: 08-03-2005 History of tobacco use Current smoker [facility] End: 08-03-2005 History of tobacco use Cigarette Smoker [facility] Start: 08-03-2010 End: 02-08-2024 Tobacco use and exposure Smokeless tobacco non-user [facility] Start: 04-18-2021 End: 01-01-2025 Alcohol intake Ex-drinker (finding) [facility] Start: 01-10-2020 End: 06-13-2022 History SDOH Alcohol Frequency 2 [facility] Start: 01-10-2020 End: 06-13-2022 History SDOH Alcohol Std Drinks 1 [facility] Start: 11-21-2018 History SDOH Alcohol Comment Rarely [facility] Start: 03-09-2020 End: 06-13-2022 History SDOH Social Connections Phone 4 [facility] Start: 01-10-2020 End: 06-13-2022 History SDOH Social Connections Caodaism 3 [facility] Start: 03-09-2020 End: 06-13-2022 History SDOH Social Connections Living 5 [facility] Start: 01-09-2020 Education 15 [facility] Start: 1975 Sex Assigned At Female [facility] Start: 10-30-2020 End: 02-13-2022 Exposure to SARS-CoV-2 (event) Not sure [facility] Start: 09-15-2022 End: 01-30-2023 Tobacco smoking status DEIS Unknown if ever smoked [facility] Start: 01-16-2019 Non-smoker [facility] Start: 06-13-2022 End: 10-11-2022 History of Social function [facility] Start: 06-13-2022 End: 10-11-2022 Social connection and isolation panel [facility] Do you belong to any clubs or organizations such as episcopalian groups, unions, fraternal or athletic groups, or school groups? Yes [facility] Are you now , , , , never or living with a partner? [facility] How often to you hav e a drink containing alcohol? Monthly or less [facility] How many standard dr inks containing alcohol do you have on a typical day? 1 or 2 [facility] How often do you hav e 6 or more drinks on 1 occasion? Never [facility] How hard is it for y ou to pay for the very basics like food, housing, medical care, and heating Not very hard [facility] Start: 04-14-2012 Adult Depression Screening Assessment 0 [facility] Do you feel stress - tense, restless, nervous, or anxious, or unable to sleep at night because your mind is troubled all the time - these days [OSQ] Only a little [facility] (I/We) worried wheth er (my/our) food would run out before (I/we) got money to buy more. Never true [facility] In the past 12 month s, was there a time when you were not able to pay the mortgage or rent on time? No [facility] Start: 03-09-2020 Gender identity Identifies as female gender (finding) [facility] Start: 03-09-2020 Sexual orientation Heterosexual (finding) [facility] How hard is it for y ou to pay for the very basics like food, housing, medical care, and heating Somewhat hard [facility] Do you feel stress - tense, restless, nervous, or anxious, or unable to sleep at night because your mind is troubled all the time - these days [OSQ] Very much [facility] Medical Equipment Procedure Code Equipment Code Equipment Origin al Text Equipment Identifier Dates Vaginal hysterectomy SLING,TVTRL EXACT VAG FDA Start: 01-23-2019 Vaginal hysterectomy SURGICEL, P OWDER 3GR FDA Start: 01-23-2019 Vaginal hysterectomy SLING,TVTRL EXACT VAG FDA Start: 01-23-2019 Vaginal hysterectomy SURGICEL, P OWDER 3GR FDA Start: 01-23-2019 Vaginal hysterectomy SLING,TVTRL EXACT VAG FDA Start: 01-23-2019 Vaginal hysterectomy SURGICEL, P OWDER 3GR FDA Start: 01-23-2019 Vaginal hysterectomy SLING,TVTRL EXACT VAG FDA Start: 01-23-2019 Vaginal hysterectomy SURGICEL, P OWDER 3GR FDA Start: 01-23-2019 25mm Plate for L5/S1 FDA Start: 02-01-2021 PATCH,AMNION 2X3CM FDA Start: 02-01-2021 PATCH,AMNION 2X3CM FDA Start: 02-01-2021 SPACER,10MM INTERLAM FDA Start: 02-01-2021 STRIP,BONE CANC [id number] FDA Start: 02-01-2021 STRIP,BONE CANC [id number] FDA Start: 02-01-2021 STRIP,BONE CANC [id number] FDA Start: 02-01-2021 STRIP,BONE CANC [id number] FDA Start: 02-01-2021 SUTURE,LIGA CLIP MED LT200 FDA Start: 02-01-2021 SUTURE,LIGA CLIP MED LT200 FDA Start: 02-01-2021 SUTURE,LIGA CLIP MED LT200 FDA Start: 02-01-2021 40mm Axle X Construct FDA Start: 02-01-2021 SUTURE,LIGA CLIP MED LT200 FDA Start: 02-01-2021 SUTURE,LIGA CLIP MED LT200 FDA Start: 02-01-2021 SUTURE,LIGA CLIP MED LT200 FDA Start: 02-01-2021 5 x 25 Variable Screw FDA Start: 02-01-2021 5 x 25 Variable Screw FDA Start: 02-01-2021 5 x 25 Variable Screw FDA Start: 02-01-2021 5 x 25 Variable Screw FDA Start: 02-01-2021 CLIP,LIGA LG FDA Start: 02-01-2021 CLIP,LIGA LG FDA Start: 02-01-2021 F3D ALIF FDA Start: 02-01-2021 25mm Plate for L5/S1 FDA Start: 02-01-2021 PATCH,AMNION 2X3CM FDA Start: 02-01-2021 PATCH,AMNION 2X3CM FDA Start: 02-01-2021 SPACER,10MM INTERLAM FDA Start: 02-01-2021 STRIP,BONE CANC [id number] FDA Start: 02-01-2021 STRIP,BONE CANC [id number] FDA Start: 02-01-2021 STRIP,BONE CANC [id number] FDA Start: 02-01-2021 STRIP,BONE CANC [id number] FDA Start: 02-01-2021 SUTURE,LIGA CLIP MED LT200 FDA Start: 02-01-2021 SUTURE,LIGA CLIP MED LT200 FDA Start: 02-01-2021 SUTURE,LIGA CLIP MED LT200 FDA Start: 02-01-2021 40mm Axle X Construct FDA Start: 02-01-2021 SUTURE,LIGA CLIP MED LT200 FDA Start: 02-01-2021 SUTURE,LIGA CLIP MED LT200 FDA Start: 02-01-2021 SUTURE,LIGA CLIP MED LT200 FDA Start: 02-01-2021 5 x 25 Variable Screw FDA Start: 02-01-2021 5 x 25 Variable Screw FDA Start: 02-01-2021 5 x 25 Variable Screw FDA Start: 02-01-2021 5 x 25 Variable Screw FDA Start: 02-01-2021 CLIP,LIGA LG FDA Start: 02-01-2021 CLIP,LIGA LG FDA Start: 02-01-2021 F3D ALIF FDA Start: 02-01-2021 25mm Plate for L5/S1 FDA Start: 02-01-2021 PATCH,AMNION 2X3CM FDA Start: 02-01-2021 PATCH,AMNION 2X3CM FDA Start: 02-01-2021 SPACER,10MM INTERLAM FDA Start: 02-01-2021 STRIP,BONE CANC [id number] FDA Start: 02-01-2021 STRIP,BONE CANC [id number] FDA Start: 02-01-2021 STRIP,BONE CANC [id number] FDA Start: 02-01-2021 STRIP,BONE CANC [id number] FDA Start: 02-01-2021 SUTURE,LIGA CLIP MED LT200 FDA Start: 02-01-2021 SUTURE,LIGA CLIP MED LT200 FDA Start: 02-01-2021 SUTURE,LIGA CLIP MED LT200 FDA Start: 02-01-2021 40mm Axle X Construct FDA Start: 02-01-2021 SUTURE,LIGA CLIP MED LT200 FDA Start: 02-01-2021 SUTURE,LIGA CLIP MED LT200 FDA Start: 02-01-2021 SUTURE,LIGA CLIP MED LT200 FDA Start: 02-01-2021 5 x 25 Variable Screw FDA Start: 02-01-2021 5 x 25 Variable Screw FDA Start: 02-01-2021 5 x 25 Variable Screw FDA Start: 02-01-2021 5 x 25 Variable Screw FDA Start: 02-01-2021 CLIP,LIGA LG FDA Start: 02-01-2021 CLIP,LIGA LG FDA Start: 02-01-2021 F3D ALIF FDA Start: 02-01-2021 25mm Plate for L5/S1 FDA Start: 02-01-2021 PATCH,AMNION 2X3CM FDA Start: 02-01-2021 PATCH,AMNION 2X3CM FDA Start: 02-01-2021 SPACER,10MM INTERLAM FDA Start: 02-01-2021 STRIP,BONE CANC [id number] FDA Start: 02-01-2021 STRIP,BONE CANC [id number] FDA Start: 02-01-2021 STRIP,BONE CANC [id number] FDA Start: 02-01-2021 STRIP,BONE CANC [id number] FDA Start: 02-01-2021 SUTURE,LIGA CLIP MED LT200 FDA Start: 02-01-2021 SUTURE,LIGA CLIP MED LT200 FDA Start: 02-01-2021 SUTURE,LIGA CLIP MED LT200 FDA Start: 02-01-2021 40mm Axle X Construct FDA Start: 02-01-2021 SUTURE,LIGA CLIP MED LT200 FDA Start: 02-01-2021 SUTURE,LIGA CLIP MED LT200 FDA Start: 02-01-2021 SUTURE,LIGA CLIP MED LT200 FDA Start: 02-01-2021 5 x 25 Variable Screw FDA Start: 02-01-2021 5 x 25 Variable Screw FDA Start: 02-01-2021 5 x 25 Variable Screw FDA Start: 02-01-2021 5 x 25 Variable Screw FDA Start: 02-01-2021 CLIP,LIGA LG FDA Start: 02-01-2021 CLIP,LIGA LG FDA Start: 02-01-2021 F3D ALIF FDA Start: 02-01-2021 Goals Date Patient Goal Desired Activity /State Personal health goal Functional Status Date Assessment Result Facility 11-13-2024 Total score [AUDIT-C] 1 11/14/19 9:48 AM EDT User, Kareem [facility] 11-13-2024 How often to you hav e a drink containing alcohol? Monthly or less 11/13/2024 9:48 AM EDT User, Kareem Monthly or less [facility] 11-13-[address] inks containing alcohol do you have on a typical day? 1 or 2 11/13/2024 9:48 AM EDT User, Lexit 1 or 2 [facility] 11-13-2024 How often do you hav e 6 or more drinks on 1 occasion? Never 11/13/2024 9:48 AM EDT User, Raphaelhart Never [facility] 05-12-2023 Are you deaf, or do you have serious difficulty hearing No 05/12/2023 6:04 PM Federico Kitchen, RUPINDER No [facility] 05-12-2023 Are you blind, or do you have serious difficulty seeing, even when wearing glasses No 05/12/2023 6:04 PM Federico Kitchen, RUPINDER No [facility] 05-12-2023 Do you have serious difficulty walking or climbing stairs No 05/12/2023 6:04 PM Federico Kitchen, RUPINDER No [facility] 05-12-2023 Do you have difficul ty dressing or bathing No 05/12/2023 6:04 PM Federico Kitchen, RUPINDER No [facility] 05-12-2023 Because of a physica l, mental, or emotional condition, do you have difficulty doing errands alone such as visiting a physician's office or shopping No 05/12/2023 6:04 PM Federico Kitchen, RUPINDER No [facility] Mental Status Date Assessment Result Facility 05-12-2023 Because of a physica l, mental, or emotional condition, do you have serious difficulty concentrating, remembering, or making decisions No 05/12/2023 6:04 PM Federico Kitchen, RUPINDER No [facility] Clinical Notes 11-29-2020 to 03-18-[address] - 01/22/2025 3:35 PM Jazlyn Kelly RN - 01/22/2025 2:15 PM Carly Fung APRN.CAREER SERVICES OFFICER - 01/13/2025 2:30 PM EDTPatient InstructionsPatient Instructions Note Date & Type Note Facility 03-18-2025 Note HNO ID: [id number] Author: ABELARDO CLAYTON MD Service: ? Author Type: Physician Type: Progress Notes Filed: 03/18/2025 13:06 Note Text: [facility] CONSULT - NEW VISIT Recording using [employer] software for draft documentation of the visit was discussed with the patient/authorized architectural representative; all questions welcomed and answered. Patient/authorized architectural representative agreed to proceed I have communicated my name and active licensure. The patient's identity and physical location were verified at the time of this visit. Either the patient or their legal architectural representative has been informed of the risks and benefits of -- and alternatives to -- treatment through a remote evaluation and consents to proceed with the evaluation remotely. REASON OF VISIT: The patient is a 49-year-old female with asthma, bipolar disorder, and sleep apnea, presenting for evaluation of a persistent weight-loss plateau post-sleeve gastrectomy. REFERRING PHYSICIAN: Liza Avila MD Consultation requested for an opinion regarding class I obesity, and my final recommendations will be communicated back to the requesting physician by way of shared medical record or letter via US mail. HISTORY OF PRESENT ILLNESS: The patient is a 49-year-old female with a history of obesity, presenting for weight management. Obesity: - Underwent bariatric surgery; significant weight loss achieved. - Currently experiencing a weight loss plateau. - Attempting to lose an additional 25-30 lbs to qualify for insurance coverage for a paniculectomy. - Recently resumed a diet of two SlimFast high-protein shakes daily with one sensible meal; struggling to adhere to this regimen. - Snacking on protein bars and grilled chicken to meet protein intake goals. 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 - Has weights and a full basement for exercise but lacks a treadmill. - Previously took phentermine for weight loss, prescribed by Dr. Andrew. - Taking Lexapro, albuterol PRN for asthma, and various vitamins including a bariatric multivitamin. - Off all medications and supplements for a week due to upcoming hematology appointment. - Denies use of metformin; expresses reluctance to use it due to family history and personal research. Sleep Apnea: - Has not used CPAP for approximately one year. - Believes sleep apnea is resolved based on improved sleep quality and absence of previous symptoms. - No follow-up sleep study conducted to confirm resolution. WEIGHT HISTORY AND TRAJECTORY: Comorbidities: Status post LSG, 05/11/2023, preop weight 255 pounds, last BMI visit 05/22/2024 with MD Mary, 18-month follow-up recommended, not scheduled Ventral hernia Symptomatic abdominal panniculus History of MASH History of asthma History of obstructive sleep apnea, has not used her CPAP in one year History of migraines Anxiety and depression Pertinent medications causing weight gain: Lexapro Pertinent medications causing weight loss: Phentermine Patient goals: To lose enough weight to have panniculectomy performed. Prior Medications for weight Loss, side-effects, and/or contra-indications: N/A Lifestyle Factors Diet and Eating behaviors 24h food recall: - A protein shake for breakfast and lunch and protein containing dinner Appetite Control -- History of LSG Sleep -- Possible residual ALISHA despite weight loss Social History Works [employer], sedentary Patient Entered Data 08/29/2024 11/26/2024 12/31/2024 PROMIS 10 Health, in general Very good Good Very good Quality of life, in general Very good Good Very good Physical health, in general Good Good Very good Mental health, in general Very good Good Good Social activities satisfaction Very good Very good Very good Performing ADL's Completely Completely Completely Social role satisfaction Very good Very good Very good Pain, on average 7 1 4 Fatigue, on average Mild None Mild Emotional problems Never Rarely Sometimes PHYSICAL Score 44.9 (Good) 54.1 (Very Good) 50.8 (Very Good) MENTAL Score 56 (Excellent) 48.3 (Very Good) 48.3 (Very Good) No data to display No data to display 04/26/2023 Sleep Apnea Questionnaire Snore Loudly No Tired, fatigued or sleepy in daytime No Stop breathing or choking/gasping during sleep Yes High blood pressure No Probability of moderate-severe sleep apnea (%) SAPS V2 24 (Sleep study not recommended) No data to display No data to display No data to display MEDICATIONS: Current Outpatient Medications on File Prior to Visit Medication Sig escitalopram oxalate (LEXAPRO) 20 mg tablet Take 1 tablet by mouth once daily. budesonide-formoterol (SYMBICORT) 160-4.5 mcg/actuation inhaler Inhale 2 puffs as instructed two times a day. albuterol HFA (PROVENTIL HFA, VENTOLIN HFA) 90 mcg/actuation inhaler Inhale 2 puffs as instructed four times a day as needed. MAGNESIUM ORAL Take by mouth. ( (more content not included)... [facility] 03-11-2025 Note HNO ID: [id number] Author: MACK COLEY MD Service: ? Author Type: Physician Type: Progress Notes Filed: 03/11/2025 09:34 Note Text: HISTORY OF PRESENT ILLNESS: Marquita Omalley is a 49 year old female referred for bruising.notices bruises cannot remember trauma usually. Had hysterectomy 2018 [facility] had post op bleeding after packing was removed (was on SSRI at that time). Multiple other surgeries no excessive bleeding was noted. Had 2 wisdom teeth extracted no unusual bleeding. Labs reviewed, platelet function study in 2020, likely was on SSRI at that time. No bruises currently Wonders about planned surgery for excess skin removal. CLINICAL IMPRESSION: Bruising, sounds pretty normal, abnormal platelet aggregation study in past but was likely due to SSRI effect. Doubt she has a coagulopathy RECOMMENDATION/PLAN: 1. She will hold SSRI (she can stop cold turkey, she has done that in the past) 2. Will check platelet aggregation study in 7-10 days 3. We can follow up via MyChart, if this is normal I see no hematologic contraindication for skin removal surgery Written and verbal health teaching given to patient, patient verbalizes understanding and agrees with treatment plan. PAST MEDICAL HISTORY Diagnosis Date Anxiety Arthritis Chest pain Depression Ear infection Migraines Obesity, Class II, BMI 35-39.9 02/20/2019 PTSD (post-traumatic stress disorder) Sciatica UTI (lower urinary tract infection) PAST SURGICAL HISTORY Procedure Laterality Date ABDOMINAL SURGERY HX APPENDECTOMY 1982 APPENDECTOMY HX BACK SURGERY HX BREAST SURGERY HX COLONOSCOPY SCREENING 02/13/2022 10 year next colonoscopy 2031 COLPOPEXY VAGINAL INTRAPERITONEAL APPROACH 01/23/2019 uterosacral ligament fixation FRACTURE SURGERY LIG/TRNSXJ FLP TUBE ABDL/VAG APPR UNI/BI 06/2007 MAMMO MAMMOGRAM 07/20/2010 OTHER lumbar spinal fusion L5-S1 PAST SURGICAL HISTORY OF 09/2008 Micro Disectomy L5S1 PAST SURGICAL HISTORY OF Left 2013 Left wrist surgery POST COLPORRHAPHY RECTOCELE W/WO PERINEORRHAPHY 01/23/2019 posterior repair REDUCTION OF LARGE BREAST 09/2006 Bilateral SKIN BIOPSY HX SLING OPER STRES INCONTINENCE 01/23/2019 TVT exact TONSILLECTOMY HX VAGINAL HYSTERECTOMY VAGINAL HYSTERECTOMY UTERUS 250 GM/< 01/23/2019 tubes and ovaries remain FAMILY HISTORY Problem Relation Age of Onset Allergies Mother Headache Mother Obesity Mother Hypertension Father Heart Father Obesity Sister Allergies Sister Headache Sister Diabetes Maternal Grandmother Emphysema Maternal Grandmother Breast Cancer Maternal Grandmother Emphysema Maternal Grandfather Alcohol/Drug Paternal Grandfather Headache Daughter other (Pneumonia) Daughter Headache Daughter Headache Son other (RSV) Son Psychiatry Maternal Uncle Suicide Lung Cancer Maternal Uncle SOCIAL HISTORY[1] ALLERGIES: ALLERGIES Allergen Reactions Benadryl [Diphenhyd* Intolerance, Other: See Comments Jittery, shaking, skin feels like its crawling, hyper Lyrica [Pregabalin] Other: See Comments Elevates blood pressure Seasonal Allergies Other: See Comments Mostly Pollen-stuffy nose,headache Sulfa (Sulfonamide * Hives CURRENT OUTPATIENT MEDICATIONS: escitalopram oxalate (LEXAPRO) 20 mg tablet Take 1 tablet by mouth once daily. budesonide-formoterol (SYMBICORT) 160-4.5 mcg/actuation inhaler Inhale 2 puffs as instructed two times a day. albuterol HFA (PROVENTIL HFA, VENTOLIN HFA) 90 mcg/actuation inhaler Inhale 2 puffs as instructed four times a day as needed. MAGNESIUM ORAL Take by mouth. (Patient taking differently: Take 1 tablet by mouth two times a week.) ASHWAGANDHA EXTRACT ORAL Take by mouth once daily. kslghzix-etcw-uabap-oreg-capry 100 mg-150 mg- 50 mg-150 mg cap Take by mouth once daily. (Patient taking differently: Take 1 capsule by mouth two times a week.) Zinc Acetate, Oral, 50 mg (zinc) cap Take by mouth once daily. (Patient taking differently: Take 1 capsule by mouth two times a week.) vitamin b complex capsule Take 1 capsule by mouth once daily. (Patient taking differently: Take 1 capsule by mouth two times a week.) traZODone (DESYREL) 150 mg tablet Take 1 tablet by mouth daily at bedtime. famotidine (PEPCID) 20 mg tablet Take 1 tablet by mouth two times a day as needed. gabapentin (NEURONTIN) 600 mg tablet Take 1 tablet by mouth three times a day for 180 days. (Patient not taking: Reported on 03/11/2025) REVIEW OF SYSTEMS: GENERAL: No fever, night sweats, weight loss or malaise. All other reviewed and negative other than HPI. PHYSICAL EXAMINATION: VITAL SIGNS: BP 144/87 Pulse 65 Temp (Src) 97.9 (Temporal) Ht 5' 4.5 (1.64m) Wt 191 lb 8 oz (86.9kg) SpO2 98% LMP 01/03/2019 BMI 32.38 kg/(m2). GENERAL APPEARANCE: Well appearing, in no acute distress, alert and oriented x3, well-hydrated, well nourished. I spent a total of 45 minut (more content not included)... [facility] 03-04-2025 Note HNO ID: [id number] Author: BRIGETTE MARTIN APRN.CAREER SERVICES OFFICER Service: ? Author Type: Nurse Practitioner Type: Progress Notes Filed: 03/04/2025 08:38 Note Text: This is a 49 year old female who presents today with: The patient is a 49-year-old female presenting for evaluation and management of refractory headache. HISTORY OF PRESENT ILLNESS: Layne Omalley is a 49-year-old female with a history of anxiety and insomnia, presenting for follow-up. Anxiety: - Currently taking Lexapro 10 mg daily; reports improvement but still experiences bad days. - Requests increase in dosage to 20 mg. - Has a prescription for Ativan but has not used it, keeps it as a safety net. - no SI/HI. Insomnia: - Taking Trazodone 150 mg at bedtime; reports variable effectiveness. - Sometimes takes a third to half of a pill with good results. - Recent poor sleep attributed to allergy sinus junk. Headache: - Took Tylenol this morning. - Unable to take ibuprofen. Chronic headaches/migraines that is worse during the fall symptoms. Toradol is usually helpful. Lifestyle: - Works from home for [employer]. 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 - Denies receiving flu or pneumonia vaccines; believes she has completed the Hepatitis B vaccine series. PAST MEDICAL HISTORY: PAST MEDICAL HISTORY Diagnosis Date Anxiety Arthritis Chest pain Depression Ear infection Migraines Obesity, Class II, BMI 35-39.9 02/20/2019 PTSD (post-traumatic stress disorder) Sciatica UTI (lower urinary tract infection) PAST SURGICAL HISTORY Procedure Laterality Date ABDOMINAL SURGERY HX APPENDECTOMY 1982 APPENDECTOMY HX BACK SURGERY HX BREAST SURGERY HX COLONOSCOPY SCREENING 02/13/2022 10 year next colonoscopy 2031 COLPOPEXY VAGINAL INTRAPERITONEAL APPROACH 01/23/2019 uterosacral ligament fixation FRACTURE SURGERY LIG/TRNSXJ FLP TUBE ABDL/VAG APPR UNI/BI 06/2007 MAMMO MAMMOGRAM 07/20/2010 OTHER lumbar spinal fusion L5-S1 PAST SURGICAL HISTORY OF 09/2008 Micro Disectomy L5S1 PAST SURGICAL HISTORY OF Left 2013 Left wrist surgery POST COLPORRHAPHY RECTOCELE W/WO PERINEORRHAPHY 01/23/2019 posterior repair REDUCTION OF LARGE BREAST 09/2006 Bilateral SKIN BIOPSY HX SLING OPER STRES INCONTINENCE 01/23/2019 TVT exact TONSILLECTOMY HX VAGINAL HYSTERECTOMY VAGINAL HYSTERECTOMY UTERUS 250 GM/< 01/23/2019 tubes and ovaries remain ALLERGIES Benadryl [Diphenhydramine], Lyrica [Pregabalin], Seasonal Allergies, and Sulfa (Sulfonamide Antibiotics) MEDICATIONS Current Outpatient Medications Medication Sig escitalopram oxalate (LEXAPRO) 20 mg tablet Take 1 tablet by mouth once daily. budesonide-formoterol (SYMBICORT) 160-4.5 mcg/actuation inhaler Inhale 2 puffs as instructed two times a day. albuterol HFA (PROVENTIL HFA, VENTOLIN HFA) 90 mcg/actuation inhaler Inhale 2 puffs as instructed four times a day as needed. MAGNESIUM ORAL Take by mouth. ASHWAGANDHA EXTRACT ORAL Take by mouth once daily. iykkjwcq-vono-xaftk-oreg-capry 100 mg-150 mg- 50 mg-150 mg cap Take by mouth once daily. Zinc Acetate, Oral, 50 mg (zinc) cap Take by mouth once daily. vitamin b complex capsule Take 1 capsule by mouth once daily. gabapentin (NEURONTIN) 600 mg tablet Take 1 tablet by mouth three times a day for 180 days. traZODone (DESYREL) 150 mg tablet Take 1 tablet by mouth daily at bedtime. famotidine (PEPCID) 20 mg tablet Take 1 tablet by mouth two times a day as needed. No current facility-administered medications for this visit. FAMILY HISTORY Problem Relation Age of Onset Allergies Mother Headache Mother Obesity Mother Hypertension Father Heart Father Obesity Sister Allergies Sister Headache Sister Diabetes Maternal Grandmother Emphysema Maternal Grandmother Breast Cancer Maternal Grandmother Emphysema Maternal Grandfather Alcohol/Drug Paternal Grandfather Headache Daughter other (Pneumonia) Daughter Headache Daughter Headache Son other (RSV) Son Psychiatry Maternal Uncle Suicide SOCIAL HISTORY[1] REVIEW OF SYSTEMS Constitutional: (+) insomnia Head: (+) headache Ears/Nose/Mouth/Throat: (+) sinus congestion Psychiatric: (+) tearfulness, (-) suicidal ideation EXAM: BP 148/90 Pulse 71 Resp 16 LMP 01/03/2019 (Exact Date) SpO2 98% PHYSICAL EXAM: General Appearance: Well appearing, alert, in no acute distress, well-hydrated, well nourished.. Skin: Skin color, texture, turgor normal, no suspicious rashes or lesions. Head: Normocephalic, no masses, lesions, tenderness or abnormalities. Eyes: Anicteric sclera.Extraocular movements are intact. . Lungs: Lungs clear to auscultation. No wheezing, rhonchi, rales.. Heart: RRR without murmur, gallop, or rubs. No ectopy. Neurologic: Gait normal. ASSESSMENT/PLAN 1. Anxiety with depression (F41.8) 2. ELIF (generalized anxiety disorder) (F41.1) - Anxie (more content not included)... [facility] 02-04-2025 Note HNO ID: [id number] Author: BRIGETTE MARTIN APRN.CAREER SERVICES OFFICER Service: ? Author Type: Nurse Practitioner Type: Progress Notes Filed: 02/04/2025 16:55 Note Text: This is a 49 year old female who presents today with: The patient is a 49-year-old female with depression and anxiety, presenting for evaluation of a 7-day persistent migraine headache refractory to OTC treatment and for medication management. HISTORY OF PRESENT ILLNESS: Migraine: - Layne Omalley has had a persistent migraine for 5-7 days, fluctuating in intensity but never fully resolving. - Currently experiencing severe pain. - Layne has tried Excedrin, Tylenol, sinus and allergy medications, nasal spray, and ibuprofen with no relief. - Prefers Toradol for pain management. - Denies wanting to go to the ER due to aversion to medications like Dilaudid or morphine. She reports this is typical migraine without change in character. Anxiety and Depression: - Worsening anxiety and depression, attributing some migraine symptoms to these conditions. - Experiencing significant stress from work, performing duties of three people, working 12-hour days, six days a week without additional pay. - Recent breakup with boyfriend, upcoming move in six months, son moved out, daughter started college, and youngest child is a senior. - Layne reports frequent crying and feeling overwhelmed by changes. - Seeking short-term medication to stabilize mood. - History of taking Wellbutrin, Abilify, Ativan, and Lexapro; has been off medication for over a year. - Reports good appetite but sometimes forgets to eat, leading to nausea. - Sleep disturbances, only sleeping about four hours even with 150 mg of trazodone. - Expresses feelings of hopelessness and passive suicidal ideation, stating, I just want to go to sleep and not wake up. - Denies any intention to act on these thoughts, citing the impact of her uncle's suicide on her family. - Has a supportive friend who is aware of her situation and provides emotional support. - Has an appointment with a therapist in April but is seeking more immediate help. She has reached out to counseling center, but has not been called back. PAST MEDICAL HISTORY: PAST MEDICAL HISTORY Diagnosis Date Anxiety Arthritis Chest pain Depression Ear infection Migraines Obesity, Class II, BMI 35-39.9 02/20/2019 PTSD (post-traumatic stress disorder) Sciatica UTI (lower urinary tract infection) PAST SURGICAL HISTORY Procedure Laterality Date ABDOMINAL SURGERY HX APPENDECTOMY 1982 APPENDECTOMY HX BACK SURGERY HX BREAST SURGERY HX COLONOSCOPY SCREENING 02/13/2022 10 year next colonoscopy 2031 COLPOPEXY VAGINAL INTRAPERITONEAL APPROACH 01/23/2019 uterosacral ligament fixation FRACTURE SURGERY LIG/TRNSXJ FLP TUBE ABDL/VAG APPR UNI/BI 06/2007 MAMMO MAMMOGRAM 07/20/2010 OTHER lumbar spinal fusion L5-S1 PAST SURGICAL HISTORY OF 09/2008 Micro Disectomy L5S1 PAST SURGICAL HISTORY OF Left 2013 Left wrist surgery POST COLPORRHAPHY RECTOCELE W/WO PERINEORRHAPHY 01/23/2019 posterior repair REDUCTION OF LARGE BREAST 09/2006 Bilateral SKIN BIOPSY HX SLING OPER STRES INCONTINENCE 01/23/2019 TVT exact TONSILLECTOMY HX VAGINAL HYSTERECTOMY VAGINAL HYSTERECTOMY UTERUS 250 GM/< 01/23/2019 tubes and ovaries remain ALLERGIES Benadryl [Diphenhydramine], Lyrica [Pregabalin], Seasonal Allergies, and Sulfa (Sulfonamide Antibiotics) MEDICATIONS Current Outpatient Medications Medication Sig escitalopram oxalate (LEXAPRO) 10 mg tablet 1/2 pill daily X 1 week; then increase to a whole pill daily. LORazepam (ATIVAN) 0.5 mg Take 1 tablet by mouth two times a day as needed for up to 7 days. budesonide-formoterol (SYMBICORT) 160-4.5 mcg/actuation inhaler Inhale 2 puffs as instructed two times a day. albuterol HFA (PROVENTIL HFA, VENTOLIN HFA) 90 mcg/actuation inhaler Inhale 2 puffs as instructed four times a day as needed. MAGNESIUM ORAL Take by mouth. ASHWAGANDHA EXTRACT ORAL Take by mouth once daily. uhqexjhv-azmk-befdi-oreg-capry 100 mg-150 mg- 50 mg-150 mg cap Take by mouth once daily. Zinc Acetate, Oral, 50 mg (zinc) cap Take by mouth once daily. vitamin b complex capsule Take 1 capsule by mouth once daily. gabapentin (NEURONTIN) 600 mg tablet Take 1 tablet by mouth three times a day for 180 days. traZODone (DESYREL) 150 mg tablet Take 1 tablet by mouth daily at bedtime. famotidine (PEPCID) 20 mg tablet Take 1 tablet by mouth two times a day as needed. No current facility-administered medications for this visit. FAMILY HISTORY Problem Relation Age of Onset Allergies Mother Headache Mother Obesity Mother Hypertension Father Heart Father Obesity Sister Allergies Sister Headache Sister Diabetes Maternal Grandmother Emphysema Maternal Grandmother Breast Cancer Maternal Grandmother Emphysema Maternal Grandfather Alcohol/Drug Paternal Grandfath (more content not included)... [facility] 01-22-2025 Note HNO ID: [id number] Author: TERRANCE BEE ST Service: ? Author Type: Surg Piercer Operator Type: Progress Notes Filed: 01/22/2025 15:35 Note Text: DATE OF PHOTOS: 01/22/2025 Body Part: Breasts and Abdomen ST JESSICA January 22, 2025 3:35 PM [facility] 01-22-2025 History of Present illness Narrative DATE OF PHOTOS: 01/22/2025 Body Part: Breasts and Abdomen ST JESSICA January 22, 2025 3:35 PM documented in this encounter [facility] 01-22-2025 History of Present illness Narrative Plastic Surgery Note CC: Consultation for Panniculectomy/Hernia Repair Referred by Dr. Henderson HPI: Marquita is a 49 year old female presenting today for a consultation for panniculectomy. Patient has a ventral hernia. She would like to have a panniculectomy at the same time as open ventral hernia repair. Seen by Dr. Henderson 12/22/24 Bothered by fungal skin infections Patient is s/p Gastric sleeve: laparoscopic 2022. Date of bariatric surgery (more than 18 months): Yes - laparoscopic sleeve gastrectomy Highest weight: 275 lbs Current weight: 184 lbs Weight loss of 100 lbs or more: No Use of pharmacotherapy for weight loss/management (Ozempic, Wegovy, Mounjaro, Phetermine): No Patients weight has been stable for 6 months. The patient does complain of recurrent rashes, intertrigo with dermatitis occuring on the opposed surface of the skin that has not responded to conventional treatment for a period of 3 months. She reports that this makes her itchy. Treatments tried: cortisone 10 The patient does not have a history of infection. Panniculus causes interference with activities of daily living: Yes, things like she is not able to sit close to her computer and this causes her malpositioning and discomfort. Bathing: No Dressing: No Work: Yes Trouble with clothes fitting properly: Yes - unable to wear many kinds of clothing History of Abdominal Hernia: Umbilical hernia History of Abdominal Surgery: - Open appendectomy - Lap tubal ligation 2007 - Spinal fusion (which required an abdominal approach ~2018) - Lap sleeve gastrectomy 2022 OB HISTORY: Para: 3 Plan for future pregnancies: No Recurrent Miscarriages (>3): No History of Hypertrophic Scars/Keloids: Reports she has a tendency to keloid History of Diabetes: No History of Autoimmune Disorder: No Hormonal Control or Hormone Replacement Therapy: No History of Bleeding/Clotting Disorders: Reports she bleeds very easily and was positive for 1 of the 3 markers of Von Willebrands Disease. History of DVT/PE: No Anticoagulants/Antiplatelets: No NICOTINE USE: Former, quit prior to 2005 Patient has known asthma and uses albuterol rescue inhaler for management. Has taken prednisone in the past for flares. She follows up with GI for hx of liver disease Lives: [place], [place] CT ABD/PEL W IVCON (09/23/2024 10:24 AM) IMPRESSION: Diastases of the rectus abdominis musculature. Small umbilical hernia, containing omental fat. No acute abdominal or pelvic process is identified. Subcentimeter pulmonary nodules, measuring up to 5 mm in size. PAST MEDICAL HISTORY Diagnosis Date Anxiety Arthritis Chest pain Depression Ear infection Migraines Obesity, Class II, BMI 35-39.9 02/20/2019 PTSD (post-traumatic stress disorder) Sciatica UTI (lower urinary tract infection) PAST SURGICAL HISTORY Procedure Laterality Date ABDOMINAL SURGERY HX APPENDECTOMY 1982 APPENDECTOMY HX BACK SURGERY HX BREAST SURGERY HX COLONOSCOPY SCREENING 02/13/2022 10 year next colonoscopy 2031 COLPOPEXY VAGINAL INTRAPERITONEAL APPROACH 01/23/2019 uterosacral ligament fixation FRACTURE SURGERY LIG/TRNSXJ FLP TUBE ABDL/VAG APPR UNI/BI 06/2007 MAMMO MAMMOGRAM 07/20/2010 OTHER lumbar spinal fusion L5-S1 PAST SURGICAL HISTORY OF 09/2008 Micro Disectomy L5S1 PAST SURGICAL HISTORY OF Left 2013 Left wrist surgery POST COLPORRHAPHY RECTOCELE W/WO PERINEORRHAPHY 01/23/2019 posterior repair REDUCTION OF LARGE BREAST 09/2006 Bilateral SKIN BIOPSY HX SLING OPER STRES INCONTINENCE 01/23/2019 TVT exact TONSILLECTOMY HX VAGINAL HYSTERECTOMY VAGINAL HYSTERECTOMY UTERUS 250 GM/< 01/23/2019 tubes and ovaries remain Current Outpatient Medications Medication Sig Dispense Refill budesonide-formoterol (SYMBICORT) 160-4.5 mcg/actuation inhaler Inhale 2 puffs as instructed two times a day. 3 each 3 albuterol HFA (PROVENTIL HFA, VENTOLIN HFA) 90 mcg/actuation inhaler Inhale 2 puffs as instructed four times a day as needed. 18 g 5 predniSONE (DELTASONE) 20 mg tablet Take 2 tablets by mouth once daily. (Patient not taking: Reported on 01/01/2025) 10 tablet 0 MAGNESIUM ORAL Take by mouth. ASHWAGANDHA EXTRACT ORAL Take by mouth once daily. arslascr-mfbl-mktef-oreg-capry 100 mg-150 mg- 50 mg-150 mg cap Take by mouth once daily. Zinc Acetate, Oral, 50 mg (zinc) cap Take by mouth once daily. vitamin b complex capsule Take 1 capsule by mouth once daily. gabapentin (NEURONTIN) 600 mg tablet Take 1 tablet by mouth three times a day for 180 days. 90 tablet 5 traZODone (DESYREL) 150 mg tablet Take 1 tablet by mouth daily at bedtime. 90 tablet 3 famotidine (PEPCID) 20 mg tablet Take 1 tablet by mouth two times a day as needed. 180 tablet 3 No current facility-administered medications for this visit. ALLERGIES Allergen Reactions Benadryl [Diphenhyd* Intolerance, Other: See Comments Jittery, shaking, skin feels like its crawling, hyper Lyrica [Pregabalin] Other: See Comments Elevates blood pressure Seasonal Allergies Other: See Comments Mostly Pollen-stuffy nose,headache Sulfa (Sulfonamide * Hives Objective: BP 117/76 Pulse 75 Temp 36.7 C (98 F) (Temporal) Ht 163.8 cm (5' 4.5) Wt 83.8 kg (184 lb 12.8 oz) LMP 01/03/2019 (Exact Date) BMI 31.23 kg/m PE: Abdominal Exam: soft, non-tender, non-distended, Localized adiposity and excess skin of the abdomen, Port site scars, transverse lower suprapubic incision, RLQ tattoo Intra-abdominal adiposity: Yes Diastasis recti: Yes Evidence of Hernia: Yes Striae: Yes Panniculus hangs below symphysis pubis: Yes, 5 cm A/P: Layne is a 49 year old female w/ history of significant weight loss following bariatric surgery, symptomatic abdominal panniculus. Orders placed for hematology for evaluation given her history of easy bleeding and possibility of Von Willebrands. Patient is a candidate for a panniculectomy, could reasonably improve the physical functional impairment. Discussed increased risk for infection, bleeding, wound healing complications, anesthesia complications with higher BMI. Encouraged patient to continue with weight loss for safety and best aesthetic outcome. Orders placed for endocrine weight management for additional support. The risks, benefits and options were discussed with the patient. The risks included but not limited to pain, bleeding, infection, heavy scarring, damage to surrounding structures, fluid collections, asymmetry, and need for further procedures. Photographs have been taken and will be sent to the insurance company as necessary. Follow up prior to surgery. Will obtain consent at that time. The patient is seen and examined by Dr. Liza Avila and the following reflects her service. Scribed by Jazlyn Rodriguez RN I agree with the Chief Complaint, ROS, and Past Histories independently gathered by the clinical decision support manager and the remaining scribed note accurately describes my personal service to the patient. This visit lasted for more than 45 minutes and greater than 50% of the visit was involved in the discussion of the options for treatment. Today's office visit: She is planned for ventral hernia repair with Dr Henderson and I am consulting for combined panniculectomy. I discussed that she could loose the umbilicus and that I can discuss umbilicoplasty options later. She has von Willebrand's so will have her see Hematology for this. She had prior fatty liver but after weight loss her labs are now improved. Liza Avila MD documented in this encounter [facility] 01-22-2025 Note HNO ID: [id number] Author: JAZLYN RODRIGUEZ RN Service: ? Author Type: Registered Nurse Type: Progress Notes Filed: 01/22/2025 16:33 Note Text: Plastic Surgery Note CC: Consultation for Panniculectomy/Hernia Repair Referred by Dr. Henderson HPI: Marquita is a 49 year old female presenting today for a consultation for panniculectomy. Patient has a ventral hernia. She would like to have a panniculectomy at the same time as open ventral hernia repair. Seen by Dr. Henderson 12/22/24 Bothered by fungal skin infections Patient is s/p Gastric sleeve: laparoscopic 2022. Date of bariatric surgery (more than 18 months): Yes - laparoscopic sleeve gastrectomy Highest weight: 275 lbs Current weight: 184 lbs Weight loss of 100 lbs or more: No Use of pharmacotherapy for weight loss/management (Ozempic, Wegovy, Mounjaro, Phetermine): No Patients weight has been stable for 6 months. The patient does complain of recurrent rashes, intertrigo with dermatitis occuring on the opposed surface of the skin that has not responded to conventional treatment for a period of 3 months. She reports that this makes her itchy. Treatments tried: cortisone 10 The patient does not have a history of infection. Panniculus causes interference with activities of daily living: Yes, things like she is not able to sit close to her computer and this causes her malpositioning and discomfort. Bathing: No Dressing: No Work: Yes Trouble with clothes fitting properly: Yes - unable to wear many kinds of clothing History of Abdominal Hernia: Umbilical hernia History of Abdominal Surgery: - Open appendectomy - Lap tubal ligation 2007 - Spinal fusion (which required an abdominal approach ~2018) - Lap sleeve gastrectomy 2022 OB HISTORY: Para: 3 Plan for future pregnancies: No Recurrent Miscarriages (>3): No History of Hypertrophic Scars/Keloids: Reports she has a tendency to keloid History of Diabetes: No History of Autoimmune Disorder: No Hormonal Control or Hormone Replacement Therapy: No History of Bleeding/Clotting Disorders: Reports she bleeds very easily and was positive for 1 of the 3 markers of Von Willebrands Disease. History of DVT/PE: No Anticoagulants/Antiplatelets: No NICOTINE USE: Former, quit prior to 2005 Patient has known asthma and uses albuterol rescue inhaler for management. Has taken prednisone in the past for flares. She follows up with GI for hx of liver disease Lives: [place], [place] CT ABD/PEL W IVCON (09/23/2024 10:24 AM) IMPRESSION: Diastases of the rectus abdominis musculature. Small umbilical hernia, containing omental fat. No acute abdominal or pelvic process is identified. Subcentimeter pulmonary nodules, measuring up to 5 mm in size. PAST MEDICAL HISTORY Diagnosis Date Anxiety Arthritis Chest pain Depression Ear infection Migraines Obesity, Class II, BMI 35-39.9 02/20/2019 PTSD (post-traumatic stress disorder) Sciatica UTI (lower urinary tract infection) PAST SURGICAL HISTORY Procedure Laterality Date ABDOMINAL SURGERY HX APPENDECTOMY 1982 APPENDECTOMY HX BACK SURGERY HX BREAST SURGERY HX COLONOSCOPY SCREENING 02/13/2022 10 year next colonoscopy 2031 COLPOPEXY VAGINAL INTRAPERITONEAL APPROACH 01/23/2019 uterosacral ligament fixation FRACTURE SURGERY LIG/TRNSXJ FLP TUBE ABDL/VAG APPR UNI/BI 06/2007 MAMMO MAMMOGRAM 07/20/2010 OTHER lumbar spinal fusion L5-S1 PAST SURGICAL HISTORY OF 09/2008 Micro Disectomy L5S1 PAST SURGICAL HISTORY OF Left 2013 Left wrist surgery POST COLPORRHAPHY RECTOCELE W/WO PERINEORRHAPHY 01/23/2019 posterior repair REDUCTION OF LARGE BREAST 09/2006 Bilateral SKIN BIOPSY HX SLING OPER STRES INCONTINENCE 01/23/2019 TVT exact TONSILLECTOMY HX VAGINAL HYSTERECTOMY VAGINAL HYSTERECTOMY UTERUS 250 GM/< 01/23/2019 tubes and ovaries remain Current Outpatient Medications Medication Sig Dispense Refill budesonide-formoterol (SYMBICORT) 160-4.5 mcg/actuation inhaler Inhale 2 puffs as instructed two times a day. 3 each 3 albuterol HFA (PROVENTIL HFA, VENTOLIN HFA) 90 mcg/actuation inhaler Inhale 2 puffs as instructed four times a day as needed. 18 g 5 predniSONE (DELTASONE) 20 mg tablet Take 2 tablets by mouth once daily. (Patient not taking: Reported on 01/01/2025) 10 tablet 0 MAGNESIUM ORAL Take by mouth. ASHWAGANDHA EXTRACT ORAL Take by mouth once daily. rvepalcu-vsbx-awypr-oreg-capry 100 mg-150 mg- 50 mg-150 mg cap Take by mouth once daily. Zinc Acetate, Oral, 50 mg (zinc) cap Take by mouth once daily. vitamin b complex capsule Take 1 capsule by mouth once daily. gabapentin (NEURONTIN) 600 mg tablet Take 1 tablet by mouth three times a day for 180 days. 90 tablet 5 traZODone (DESYREL) 150 mg tablet Take 1 tablet by mouth daily at bedtime. 90 tablet 3 famotidine (PEPCID) 20 mg tablet Take 1 tablet by mouth two times a day as needed. 180 tablet 3 No current facil (more content not included)... [facility] 01-13-2025 History of Present illness Narrative Images from the original note were not included. Department of Dermatology Carly Colón APRN.CAREER SERVICES OFFICER Last visit in Dermatology: 12/04/2024 Objective/Assessment/Plan Skin Exam 1. MULTIPLE BENIGN NEVI Generalized Multiple scattered pink papules with flaccid epidermis and small, symmetric huitron to brown macules with uniform pigmentation over the trunk and extremities. Observational course. Monitor for growth and changes. 2. SEBORRHEIC KERATOSIS Generalized Stuck-on verrucous, variably pigmented papules and plaques. Scattered to the trunk, bilateral upper extremities, bilateral lower extremities. Observational course. Monitor for growth and changes. 3. LENTIGINES Generalized Densely scattered light huitron macules and small patches on all sun exposed areas. Observational course. Monitor for growth and changes. 4. SANCHEZ ANGIOMA Generalized Sanchez-red papules scattered to the trunk, bilateral upper extremities, bilateral lower extremities. Observational course. Monitor for growth and changes. 5. SKIN CANCER SCREENING Generalized The patient's skin was examined for evidence of cutaneous malignancy. The nature of sun-induced photo-aging and skin cancers is discussed. Sun avoidance, protective clothing, and the use of 30-SPF sunscreens is advised. Patient is instructed to perform regular self exams. Patient instructed to observe for changing, symptomatic, or new skin lesions and encouraged to contact our office for evaluation. Follow-up as noted below or as needed. Chief Complaint: Patient presents with: Full Body Skin Check Subjective and Objective HPI: Marquita Omalley is a 49 year old female who presents for: Skin check. Desires: Total body skin check in female excluding genitals (patient has periodic examination by PCP and declines this exam) History of skin cancer?: No Areas of particular concern?: No Past medical history is reviewed. Medication list is reviewed. Physical Exam included: Scalp, face, ears, neck, chest, back, abdomen, bilateral upper extremities, bilateral lower extremities, buttocks, hands, feet, nails and hair Intake information obtained by Mandy You RN The documentation for this note was completed by Phong Sheffield LPN acting as scribe for Carly Colón APRN.CNP. January 13, 2025 2:49 PM I agree with the Chief Complaint, ROS, and Past Histories independently gathered by the clinical decision support manager and the remaining scribed note accurately describes my personal service to the patient. Carly Colón APRN.CNP documented in this encounter [facility] 01-13-2025 Note HNO ID: [id number] Author: CARLY COLÓN APRN.CNP Service: ? Author Type: Nurse Practitioner Type: Progress Notes Filed: 01/13/2025 15:45 Note Text: Department of Dermatology Carly Colón APRN.CNP Last visit in Dermatology: 12/04/2024 Objective/Assessment/Plan Skin Exam 1. MULTIPLE BENIGN NEVI Generalized Multiple scattered pink papules with flaccid epidermis and small, symmetric huitron to brown macules with uniform pigmentation over the trunk and extremities. Observational course. Monitor for growth and changes. 2. SEBORRHEIC KERATOSIS Generalized Stuck-on verrucous, variably pigmented papules and plaques. Scattered to the trunk, bilateral upper extremities, bilateral lower extremities. Observational course. Monitor for growth and changes. 3. LENTIGINES Generalized Densely scattered light huitron macules and small patches on all sun exposed areas. Observational course. Monitor for growth and changes. 4. SANCHEZ ANGIOMA Generalized Sanchez-red papules scattered to the trunk, bilateral upper extremities, bilateral lower extremities. Observational course. Monitor for growth and changes. 5. SKIN CANCER SCREENING Generalized The patient's skin was examined for evidence of cutaneous malignancy. The nature of sun-induced photo-aging and skin cancers is discussed. Sun avoidance, protective clothing, and the use of 30-SPF sunscreens is advised. Patient is instructed to perform regular self exams. Patient instructed to observe for changing, symptomatic, or new skin lesions and encouraged to contact our office for evaluation. Follow-up as noted below or as needed. Chief Complaint: Patient presents with: Full Body Skin Check Subjective and Objective HPI: Marquita Omalley is a 49 year old female who presents for: Skin check. Desires: Total body skin check in female excluding genitals (patient has periodic examination by PCP and declines this exam) History of skin cancer?: No Areas of particular concern?: No Past medical history is reviewed. Medication list is reviewed. Physical Exam included: Scalp, face, ears, neck, chest, back, abdomen, bilateral upper extremities, bilateral lower extremities, buttocks, hands, feet, nails and hair Intake information obtained by Mandy You RN The documentation for this note was completed by Phong Sheffield LPN acting as scribe for Carly Colón APRN.CNP. January 13, 2025 2:49 PM I agree with the Chief Complaint, ROS, and Past Histories independently gathered by the clinical decision support manager and the remaining scribed note accurately describes my personal service to the patient. Carly Colón APRN.RENETTA [facility] 01-13-2025 Instructions Phong Sheffield LPN - 01/13/2025 7:20 AM EDT GENERAL SUN SAFETY Thank you for allowing me to examine you for signs of skin cancer today. We had an opportunity to discuss my findings and any treatments I recommended. I believe that there are several steps that a person can do to help prevent skin cancers and to detect them at an early, treatable stage: 1. I highly recommend that once a month you perform your own complete skin check looking for changing or unusual spots. Use a wall-mounted mirror and a hand mirror to assist in seeing body areas that are difficult to see otherwise. If you have a family member that can assist, this is often helpful. Additional information can be obtained at: www.skincancer.org/mryi-pnrbrq-ufv ormation/early-detection 2. In many cases, skin cancer can be prevented. The best way to protect yourself is to avoid too much sun and sunburns. Health care providers believe that ultraviolet rays (UV rays) from the sun damage the skin and over time lead to skin cancer. Here are ways to protect yourself: -Don't spend long periods of time in direct sunlight. -Wear hats with brims to protect your face and ears. -Wear long-sleeved shirts and pants to protect your arms and legs. -Use broad spectrum sunscreens with a SPF (skin protection factor) of 30 or higher that protect against burning and tanning rays. Apply the lotion 30 minutes before you go outside. (Broad-spectrum sunscreens protect against UV-B and UV-A rays.) -Wear sunglasses to protect your eyes. -Use a lip balm with sunscreen. -Avoid the sun between 10am and 4pm. -Show any changing mole to your health care provider. Recommend Vitamin C and sunscreen for dark spots documented in this encounter [facility] 01-01-2025 Note HNO ID: [id number] Author: LISA RODRÍGUEZ PA-C Service: ? Author Type: Physician Quick Mixer Operator Type: Progress Notes Filed: 01/01/2025 12:13 Note Text: Lisa Rodríguez PA-C Department of Orthopaedics Orthopaedics [address] [address] Dept: [phone] January 01, 2025 CHIEF COMPLAINT: New, Knee Pain, and Injections of the Left Knee. ASSESSMENT: M17.0 Primary osteoarthritis of both knees (primary encounter diagnosis) SUMMARY/PLAN: Patient presents requesting a repeat left knee corticosteroid injection, her last injection was September 01, 2024, she found the injection to be very beneficial for almost 3 months, pain has returned and is a 5 out of 10 sharp aching, pain is worse when she is climbing stairs but not descending stairs. Moving her daughter to college this weekend. Will proceed with a left knee corticosteroid injection, advised that she can repeat the injection every 91 days as needed. Large Joint Arthro/Inj: L knee joint 01/01/2025 12:13 PM The procedure site was prepped in the usual sterile fashion. Site: L knee joint Medications: 6 mg betamethasone acetate-betamethasone sodium phosphate 6 mg/mL Anesthetics: 5 mL lidocaine (PF) 10 mg/mL (1 %) Outcome: Tolerated well, no immediate complications Post-injection instructions were reviewed with the patient and the patient voiced understanding of these instructions. Informed Consent Consent Obtained: Verbal [place] Protocol A moment to CARE was completed. SIGN IN Sign in communication not applicable due to emergent procedure. Personnel directly involved with the procedure wore the appropriate PPE. Special Equipment: N/A Patient/Surrogate Stated/Verified: Patient name, Date of , Relevant allergies and Intended procedure TIME OUT Relevant labs, photos, and/or imaging studies have been reviewed. Consent documented and matches the intended procedure. Correct side/site marked and visible. Medications required for procedure verified. No fire risk assessment and interventions applicable. No implant(s) inserted. SIGN OUT No specimen collected. All instruments, equipment, possible retained foreign bodies accounted for. No post-procedure POC communication to the patient's multidisciplinary team (including the bedside nurse for hospitalized patients) applicable. Ms. Marquita Omalley was advised as to contrast therapies and/or to take analgesics/anti-inflammatories as needed and all contraindications were reviewed. Supporting Information Below: Medications: Current Outpatient Medications Medication Sig budesonide-formoterol (SYMBICORT) 160-4.5 mcg/actuation inhaler Inhale 2 puffs as instructed two times a day. albuterol HFA (PROVENTIL HFA, VENTOLIN HFA) 90 mcg/actuation inhaler Inhale 2 puffs as instructed four times a day as needed. MAGNESIUM ORAL Take by mouth. ASHWAGANDHA EXTRACT ORAL Take by mouth once daily. vuknkafj-jrur-kukbo-oreg-capry 100 mg-150 mg- 50 mg-150 mg cap Take by mouth once daily. Zinc Acetate, Oral, 50 mg (zinc) cap Take by mouth once daily. vitamin b complex capsule Take 1 capsule by mouth once daily. gabapentin (NEURONTIN) 600 mg tablet Take 1 tablet by mouth three times a day for 180 days. traZODone (DESYREL) 150 mg tablet Take 1 tablet by mouth daily at bedtime. famotidine (PEPCID) 20 mg tablet Take 1 tablet by mouth two times a day as needed. predniSONE (DELTASONE) 20 mg tablet Take 2 tablets by mouth once daily. (Patient not taking: Reported on 01/01/2025) No current facility-administered medications for this visit. Allergies: Benadryl [Diphenhydramine], Lyrica [Pregabalin], Seasonal Allergies, and Sulfa (Sulfonamide Antibiotics) This note was partially generated using NextNine voice recognition system, and there may be some incorrect words, spellings, and punctuation that were not noted in checking the note before saving. Lisa Rodríguez PA-C [facility] 01-01-2025 History of Present illness Narrative Associated Order(s): Large Joint Arthro/Inj: L knee joint Post-Procedure Diagnose(s): Primary osteoarthritis of both knees Lisa Rodríguez PA-C Department of Orthopaedics Orthopaedics [address] [place] [id number] Dept: [phone] January 01, 2025 CHIEF COMPLAINT: New, Knee Pain, and Injections of the Left Knee. ASSESSMENT: M17.0 Primary osteoarthritis of both knees (primary encounter diagnosis) SUMMARY/PLAN: Patient presents requesting a repeat left knee corticosteroid injection, her last injection was September 01, 2024, she found the injection to be very beneficial for almost 3 months, pain has returned and is a 5 out of 10 sharp aching, pain is worse when she is climbing stairs but not descending stairs. Moving her daughter to college this weekend. Will proceed with a left knee corticosteroid injection, advised that she can repeat the injection every 91 days as needed. Large Joint Arthro/Inj: L knee joint 01/01/2025 12:13 PM The procedure site was prepped in the usual sterile fashion. Site: L knee joint Medications: 6 mg betamethasone acetate-betamethasone sodium phosphate 6 mg/mL Anesthetics: 5 mL lidocaine (PF) 10 mg/mL (1 %) Outcome: Tolerated well, no immediate complications Post-injection instructions were reviewed with the patient and the patient voiced understanding of these instructions. Informed Consent Consent Obtained: Verbal [place] Protocol A moment to CARE was completed. SIGN IN Sign in communication not applicable due to emergent procedure. Personnel directly involved with the procedure wore the appropriate PPE. Special Equipment: N/A Patient/Surrogate Stated/Verified: Patient name, Date of , Relevant allergies and Intended procedure TIME OUT Relevant labs, photos, and/or imaging studies have been reviewed. Consent documented and matches the intended procedure. Correct side/site marked and visible. Medications required for procedure verified. No fire risk assessment and interventions applicable. No implant(s) inserted. SIGN OUT No specimen collected. All instruments, equipment, possible retained foreign bodies accounted for. No post-procedure POC communication to the patient's multidisciplinary team (including the bedside nurse for hospitalized patients) applicable. Ms. Marquita Omalley was advised as to contrast therapies and/or to take analgesics/anti-inflammatories as needed and all contraindications were reviewed. Supporting Information Below: Medications: Current Outpatient Medications Medication Sig budesonide-formoterol (SYMBICORT) 160-4.5 mcg/actuation inhaler Inhale 2 puffs as instructed two times a day. albuterol HFA (PROVENTIL HFA, VENTOLIN HFA) 90 mcg/actuation inhaler Inhale 2 puffs as instructed four times a day as needed. MAGNESIUM ORAL Take by mouth. ASHWAGANDHA EXTRACT ORAL Take by mouth once daily. tzkbgkcp-wprw-qwelj-oreg-capry 100 mg-150 mg- 50 mg-150 mg cap Take by mouth once daily. Zinc Acetate, Oral, 50 mg (zinc) cap Take by mouth once daily. vitamin b complex capsule Take 1 capsule by mouth once daily. gabapentin (NEURONTIN) 600 mg tablet Take 1 tablet by mouth three times a day for 180 days. traZODone (DESYREL) 150 mg tablet Take 1 tablet by mouth daily at bedtime. famotidine (PEPCID) 20 mg tablet Take 1 tablet by mouth two times a day as needed. predniSONE (DELTASONE) 20 mg tablet Take 2 tablets by mouth once daily. (Patient not taking: Reported on 01/01/2025) No current facility-administered medications for this visit. Allergies: Benadryl [Diphenhydramine], Lyrica [Pregabalin], Seasonal Allergies, and Sulfa (Sulfonamide Antibiotics) This note was partially generated using NextNine voice recognition system, and there may be some incorrect words, spellings, and punctuation that were not noted in checking the note before saving. Lisa Rodríguez PA-C documented in this encounter [facility] 12-31-2024 Telephone encounter Note Called pt and was able to move her to 01/01/25 at 11:45 in [place] [facility] 12-31-2024 Miscellaneous Notes Called pt and was able to move her to 01/01/25 at 11:45 in [place] documented in this encounter [facility] 12-24-2024 Telephone encounter Note contacted patient to schedule consult per staff message from . Unable to reach left a detailed voicemail for scheduling [facility] 12-24-2024 Miscellaneous Notes contacted patient to schedule consult per staff message from . Unable to reach left a detailed voicemail for scheduling documented in this encounter [facility] 12-22-2024 Note HNO ID: [id number] Author: VIK HENDERSON MD Service: ? Author Type: Physician Type: Progress Notes Filed: 12/22/2024 15:41 Note Text: Consultation requested by Dr. Leora Ha for an opinion regarding ventral hernia. My final recommendations will be communicated back to the requesting physician by way of shared medical record or letter via [place] mail. Marquita Omalley is a 49 year old female who presents with a ventral hernia. She is planning undergoing a panniculectomy with plastic surgery who is also requesting a concurrent hernia repair in order to complete the panniculectomy. She has had a history of fungal skin infections she reports. I believe that this would be best approached concurrently. Will refer her to plastic surgery here at [facility] in order to perform a concurrent panniculectomy with open ventral hernia repair at the same time. Patient is in agreement. I have seen and evaluated the patient and discussed the case with the resident physician. I agree with the assessment and plan as documented in the resident?s note including a ROS that was reviewed and negative other than what was indicated in our notes. Patient consented for study? Not applicable [facility] 12-22-2024 History of Present illness Narrative Consultation requested by Dr. Leora Ha for an opinion regarding ventral hernia. My final recommendations will be communicated back to the requesting physician by way of shared medical record or letter via [place] mail. Marquita Omalley is a 49 year old female who presents with a ventral hernia. She is planning undergoing a panniculectomy with plastic surgery who is also requesting a concurrent hernia repair in order to complete the panniculectomy. She has had a history of fungal skin infections she reports. I believe that this would be best approached concurrently. Will refer her to plastic surgery here at [facility] in order to perform a concurrent panniculectomy with open ventral hernia repair at the same time. Patient is in agreement. I have seen and evaluated the patient and discussed the case with the resident physician. I agree with the assessment and plan as documented in the resident s note including a ROS that was reviewed and negative other than what was indicated in our notes. Patient consented for study? Not applicable What is the reason for your visit today? Consult Who is your referring physician? Dr. Henderson Are you having poor oral intake? NO Have you had unintentional weight loss of 15 lbs/7 Kg in the last 3-6 months? NO Bowels: regular Wound: clean & dry Temperature: No Drains: No documented in this encounter [facility] 12-22-2024 History and physical note [facility] - HISTORY AND PHYSICAL SUBJECTIVE: Chief Complaint: Presents for surgical opinion regarding umbilical hernia + diastasis of recti repair + abdominoplasty HPI: Marquita Omalley is a 49 year old female who with history of laparoscopic tubal ligation 2007 c/b umbilical hernia, and s/p laparoscopic sleeve gastrectomy 2022 presents for surgical opinion regarding umbilical hernia repair + diastasis of recti repair + abdominoplasty. She notes that she has lost 90 lbs since her sleeve gastrectomy, and is bothered by excess skin and her diastasis of the rectus muscles. She notes that her previous plastic surgeon recommended that she has her umbilical hernia repaired first and diastasis before proceeding with an abdominoplasty. Her primary concern is being able to get the abdominoplasty, and she would be interested in the ability of a combination case with General Surgery and Plastic Surgery for simultaneous repair. On review today, she notes being asymptomatic from her umbilical hernia. She denies having any pain, or ever experiencing symptoms of obstruction from the hernia. She denies having any nausea or vomiting, and states that her bowel movements are normal. Pathology from [facility] + Liver, biopsy 2022- - Hepatic parenchyma with changes of steatohepatitis with bridging fibrosis. - Stomach, partial gastrectomy: Dr Caldwell - Segment of stomach with oxyntic type gastric mucosa and fundic gland polyps, negative for dysplasia. - No helicobacter organisms identified. 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 Sporting Activity: Moderate (once/week) Co-morbidities: No Significant Comorbidities Complete Review of Systems: GENERAL: No weight loss, malaise or fevers GI: No nausea, vomiting, or diarrhea : No history of dysuria, frequency or incontinence PAST MEDICAL HISTORY[1] PAST SURGICAL HISTORY Procedure Laterality Date ABDOMINAL SURGERY HX APPENDECTOMY 1982 APPENDECTOMY HX BACK SURGERY HX BREAST SURGERY HX COLONOSCOPY SCREENING 02/13/2022 10 year next colonoscopy 2031 COLPOPEXY VAGINAL INTRAPERITONEAL APPROACH 01/23/2019 uterosacral ligament fixation FRACTURE SURGERY LIG/TRNSXJ FLP TUBE ABDL/VAG APPR UNI/BI 06/2007 MAMMO MAMMOGRAM 07/20/2010 OTHER lumbar spinal fusion L5-S1 PAST SURGICAL HISTORY OF 09/2008 Micro Disectomy L5S1 PAST SURGICAL HISTORY OF Left 2013 Left wrist surgery POST COLPORRHAPHY RECTOCELE W/WO PERINEORRHAPHY 01/23/2019 posterior repair REDUCTION OF LARGE BREAST 09/2006 Bilateral SKIN BIOPSY HX SLING OPER STRES INCONTINENCE 01/23/2019 TVT exact TONSILLECTOMY HX VAGINAL HYSTERECTOMY VAGINAL HYSTERECTOMY UTERUS 250 GM/< 01/23/2019 tubes and ovaries remain FAMILY HISTORY[2] SOCIAL HISTORY[3] Prior to Admission medications as of 12/22/24 1256 Medication Sig Last Dose Taking budesonide-formoterol (SYMBICORT) 160-4.5 mcg/actuation inhaler Inhale 2 puffs as instructed two times a day. albuterol HFA (PROVENTIL HFA, VENTOLIN HFA) 90 mcg/actuation inhaler Inhale 2 puffs as instructed four times a day as needed. predniSONE (DELTASONE) 20 mg tablet Take 2 tablets by mouth once daily. Patient not taking: Reported on 12/04/2024 MAGNESIUM ORAL Take by mouth. ASHWAGANDHA EXTRACT ORAL Take by mouth once daily. tlrjujkx-anko-wpjty-oreg-capry 100 mg-150 mg- 50 mg-150 mg cap Take by mouth once daily. Zinc Acetate, Oral, 50 mg (zinc) cap Take by mouth once daily. vitamin b complex capsule Take 1 capsule by mouth once daily. gabapentin (NEURONTIN) 600 mg tablet Take 1 tablet by mouth three times a day for 180 days. traZODone (DESYREL) 150 mg tablet Take 1 tablet by mouth daily at bedtime. famotidine (PEPCID) 20 mg tablet Take 1 tablet by mouth two times a day as needed. ALLERGIES[4] PHYSICAL EXAM: BP 127/79 Pulse 76 Temp (Src) 98.3 (Temporal) Ht 5' 4 (1.63m) Wt 184 lb (83.5kg) LMP 01/03/2019 BMI 31.57 kg/(m^2). GENERAL: awake, alert and oriented, no acute distress. CARDIOVASCULAR: warm and well perfused throughout, regular rate and rhythm, normal S1 and S2. LUNGS: non-labored breathing, lungs clear to auscultation, good diaphragmatic excursion. ABDOMEN: soft, non-tender, non-distended. Abdominal striae. Small umbilical hernia - reducible, no skin changes. EXTREMITY: no lower extremity edema. NEUROLOGICAL: no gross focal neurologic deficits. Relevant Hernia Findings - Small umbilical hernia - fully reducible, no overlying skin changes. No tenderness. LABS: Nil IMAGING: CT AP 10/05- small umbilical defect as well as diastases recti ASSESSMENT/PLAN: Marquita Omalley is a 49 year old female who with history of laparoscopic tubal ligation 2007 c/b umbilical hernia, and s/p laparoscopic sleeve gastrectomy 2022 presents for surgical opinion regarding umbilical hernia repair + diastasis of recti repair + abdominoplasty. - Consented for open ventral hernia repair - Will discuss with plastics RE combination case to repair hernia + diastasis + abdominoplasty Franklin Jamison MD General Surgery Resident Hernia - Michelle [id number] [1] Past Medical History: No date: Anxiety No date: Arthritis No date: Chest pain No date: Depression No date: Ear infection No date: Migraines 02/20/2019: Obesity, Class II, BMI 35-39.9 No date: PTSD (post-traumatic stress disorder) No date: Sciatica No date: UTI (lower urinary tract infection) [2] Review of patient's family history indicates: Problem: Allergies Relation: Mother Age of Onset: (Not Specified) Problem: Headache Relation: Mother Age of Onset: (Not Specified) Problem: Obesity Relation: Mother Age of Onset: (Not Specified) Problem: Hypertension Relation: Father Age of Onset: (Not Specified) Problem: Heart Relation: Father Age of Onset: (Not Specified) Problem: Obesity Relation: Sister Age of Onset: (Not Specified) Problem: Allergies Relation: Sister Age of Onset: (Not Specified) Problem: Headache Relation: Sister Age of Onset: (Not Specified) Problem: Diabetes Relation: Maternal Grandmother Age of Onset: (Not Specified) Problem: Emphysema Relation: Maternal Grandmother Age of Onset: (Not Specified) Problem: Breast Cancer Relation: Maternal Grandmother Age of Onset: (Not Specified) Problem: Emphysema Relation: Maternal Grandfather Age of Onset: (Not Specified) Problem: Alcohol/Drug Relation: Paternal Grandfather Age of Onset: (Not Specified) Problem: Headache Relation: Daughter Age of Onset: (Not Specified) Problem: other (Pneumonia) Relation: Daughter Age of Onset: (Not Specified) Problem: Headache Relation: Daughter Age of Onset: (Not Specified) Problem: Headache Relation: Son Age of Onset: (Not Specified) Problem: other (RSV) Relation: Son Age of Onset: (Not Specified) Problem: Psychiatry Relation: Maternal Uncle Age of Onset: (Not Specified) Comment: Suicide [3] Social History Tobacco Use Smoking status: Former Current packs/day: 0.00 Types: Cigarettes Quit date: 08/03/2005 Years since quittin.4 Smokeless tobacco: Never Vaping Use Vaping status: Never Used Substance Use Topics Alcohol use: Not Currently Comment: Rarely Drug use: No [4] Allergies Allergen Reactions Benadryl [Diphenhyd* Intolerance, Other: See Comments Jittery, shaking, skin feels like its crawling, hyper Lyrica [Pregabalin] Other: See Comments Elevates blood pressure Seasonal Allergies Other: See Comments Mostly Pollen-stuffy nose,headache Sulfa (Sulfonamide * Hives [facility] Work Phone: 12-22-2024 History and physical note [facility] Abdominal [facility] - HISTORY AND PHYSICAL SUBJECTIVE: Chief Complaint: Presents for surgical opinion regarding umbilical hernia + diastasis of recti repair + abdominoplasty HPI: Marquita Omalley is a 49 year old female who with history of laparoscopic tubal ligation 2007 c/b umbilical hernia, and s/p laparoscopic sleeve gastrectomy 2022 presents for surgical opinion regarding umbilical hernia repair + diastasis of recti repair + abdominoplasty. She notes that she has lost 90 lbs since her sleeve gastrectomy, and is bothered by excess skin and her diastasis of the rectus muscles. She notes that her previous plastic surgeon recommended that she has her umbilical hernia repaired first and diastasis before proceeding with an abdominoplasty. Her primary concern is being able to get the abdominoplasty, and she would be interested in the ability of a combination case with General Surgery and Plastic Surgery for simultaneous repair. On review today, she notes being asymptomatic from her umbilical hernia. She denies having any pain, or ever experiencing symptoms of obstruction from the hernia. She denies having any nausea or vomiting, and states that her bowel movements are normal. Pathology from [facility] + Liver, biopsy 2022- - Hepatic parenchyma with changes of steatohepatitis with bridging fibrosis. - Stomach, partial gastrectomy: Dr Caldwell - Segment of stomach with oxyntic type gastric mucosa and fundic gland polyps, negative for dysplasia. - No helicobacter organisms identified. 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 Sporting Activity: Moderate (once/week) Co-morbidities: No Significant Comorbidities Complete Review of Systems: GENERAL: No weight loss, malaise or fevers GI: No nausea, vomiting, or diarrhea : No history of dysuria, frequency or incontinence PAST MEDICAL HISTORY[1] PAST SURGICAL HISTORY Procedure Laterality Date ABDOMINAL SURGERY HX APPENDECTOMY 1982 APPENDECTOMY HX BACK SURGERY HX BREAST SURGERY HX COLONOSCOPY SCREENING 02/13/2022 10 year next colonoscopy 2031 COLPOPEXY VAGINAL INTRAPERITONEAL APPROACH 01/23/2019 uterosacral ligament fixation FRACTURE SURGERY LIG/TRNSXJ FLP TUBE ABDL/VAG APPR UNI/BI 06/2007 MAMMO MAMMOGRAM 07/20/2010 OTHER lumbar spinal fusion L5-S1 PAST SURGICAL HISTORY OF 09/2008 Micro Disectomy L5S1 PAST SURGICAL HISTORY OF Left 2013 Left wrist surgery POST COLPORRHAPHY RECTOCELE W/WO PERINEORRHAPHY 01/23/2019 posterior repair REDUCTION OF LARGE BREAST 09/2006 Bilateral SKIN BIOPSY HX SLING OPER STRES INCONTINENCE 01/23/2019 TVT exact TONSILLECTOMY HX VAGINAL HYSTERECTOMY VAGINAL HYSTERECTOMY UTERUS 250 GM/< 01/23/2019 tubes and ovaries remain FAMILY HISTORY[2] SOCIAL HISTORY[3] Prior to Admission medications as of 12/22/24 1256 Medication Sig Last Dose Taking budesonide-formoterol (SYMBICORT) 160-4.5 mcg/actuation inhaler Inhale 2 puffs as instructed two times a day. albuterol HFA (PROVENTIL HFA, VENTOLIN HFA) 90 mcg/actuation inhaler Inhale 2 puffs as instructed four times a day as needed. predniSONE (DELTASONE) 20 mg tablet Take 2 tablets by mouth once daily. Patient not taking: Reported on 12/04/2024 MAGNESIUM ORAL Take by mouth. ASHWAGANDHA EXTRACT ORAL Take by mouth once daily. ozhhlesz-tceo-sdhbt-oreg-capry 100 mg-150 mg- 50 mg-150 mg cap Take by mouth once daily. Zinc Acetate, Oral, 50 mg (zinc) cap Take by mouth once daily. vitamin b complex capsule Take 1 capsule by mouth once daily. gabapentin (NEURONTIN) 600 mg tablet Take 1 tablet by mouth three times a day for 180 days. traZODone (DESYREL) 150 mg tablet Take 1 tablet by mouth daily at bedtime. famotidine (PEPCID) 20 mg tablet Take 1 tablet by mouth two times a day as needed. ALLERGIES[4] PHYSICAL EXAM: BP 127/79 Pulse 76 Temp (Src) 98.3 (Temporal) Ht 5' 4 (1.63m) Wt 184 lb (83.5kg) LMP 01/03/2019 BMI 31.57 kg/(m^2). GENERAL: awake, alert and oriented, no acute distress. CARDIOVASCULAR: warm and well perfused throughout, regular rate and rhythm, normal S1 and S2. LUNGS: non-labored breathing, lungs clear to auscultation, good diaphragmatic excursion. ABDOMEN: soft, non-tender, non-distended. Abdominal striae. Small umbilical hernia - reducible, no skin changes. EXTREMITY: no lower extremity edema. NEUROLOGICAL: no gross focal neurologic deficits. Relevant Hernia Findings - Small umbilical hernia - fully reducible, no overlying skin changes. No tenderness. LABS: Nil IMAGING: CT AP 10/05- small umbilical defect as well as diastases recti ASSESSMENT/PLAN: Marquita Omalley is a 49 year old female who with history of laparoscopic tubal ligation 2007 c/b umbilical hernia, and s/p laparoscopic sleeve gastrectomy 2022 presents for surgical opinion regarding umbilical hernia repair + diastasis of recti repair + abdominoplasty. - Consented for open ventral hernia repair - Will discuss with plastics RE combination case to repair hernia + diastasis + abdominoplasty Franklin Jamison MD General Surgery Resident Hernia - [facility] [id number] [1] Past Medical History: No date: Anxiety No date: Arthritis No date: Chest pain No date: Depression No date: Ear infection No date: Migraines 02/20/2019: Obesity, Class II, BMI 35-39.9 No date: PTSD (post-traumatic stress disorder) No date: Sciatica No date: UTI (lower urinary tract infection) [2] Review of patient's family history indicates: Problem: Allergies Relation: Mother Age of Onset: (Not Specified) Problem: Headache Relation: Mother Age of Onset: (Not Specified) Problem: Obesity Relation: Mother Age of Onset: (Not Specified) Problem: Hypertension Relation: Father Age of Onset: (Not Specified) Problem: Heart Relation: Father Age of Onset: (Not Specified) Problem: Obesity Relation: Sister Age of Onset: (Not Specified) Problem: Allergies Relation: Sister Age of Onset: (Not Specified) Problem: Headache Relation: Sister Age of Onset: (Not Specified) Problem: Diabetes Relation: Maternal Grandmother Age of Onset: (Not Specified) Problem: Emphysema Relation: Maternal Grandmother Age of Onset: (Not Specified) Problem: Breast Cancer Relation: Maternal Grandmother Age of Onset: (Not Specified) Problem: Emphysema Relation: Maternal Grandfather Age of Onset: (Not Specified) Problem: Alcohol/Drug Relation: Paternal Grandfather Age of Onset: (Not Specified) Problem: Headache Relation: Daughter Age of Onset: (Not Specified) Problem: other (Pneumonia) Relation: Daughter Age of Onset: (Not Specified) Problem: Headache Relation: Daughter Age of Onset: (Not Specified) Problem: Headache Relation: Son Age of Onset: (Not Specified) Problem: other (RSV) Relation: Son Age of Onset: (Not Specified) Problem: Psychiatry Relation: Maternal Uncle Age of Onset: (Not Specified) Comment: Suicide [3] Social History Tobacco Use Smoking status: Former Current packs/day: 0.00 Types: Cigarettes Quit date: 08/03/2005 Years since quittin.4 Smokeless tobacco: Never Vaping Use Vaping status: Never Used Substance Use Topics Alcohol use: Not Currently Comment: Rarely Drug use: No [4] Allergies Allergen Reactions Benadryl [Diphenhyd* Intolerance, Other: See Comments Jittery, shaking, skin feels like its crawling, hyper Lyrica [Pregabalin] Other: See Comments Elevates blood pressure Seasonal Allergies Other: See Comments Mostly Pollen-stuffy nose,headache Sulfa (Sulfonamide * Hives documented in this encounter [facility] 12-22-2024 Note HNO ID: [id number] Author: SHERLEY HARTLEY MA Service: ? Author Type: Manager Utility Type: Progress Notes Filed: 12/22/2024 15:41 Note Text: What is the reason for your visit today? Consult Who is your referring physician? Dr. Henderson Are you having poor oral intake? NO Have you had unintentional weight loss of 15 lbs/7 Kg in the last 3-6 months? NO Bowels: regular Wound: clean AND dry Temperature: No Drains: No [facility] 12-04-2024 Note HNO ID: [id number] Author: CARLY COLÓN APRN.CNP Service: ? Author Type: Nurse Practitioner Type: Progress Notes Filed: 12/04/2024 07:20 Note Text: Department of Dermatology Carly Colón APRN.CNP 12/04/2024 Last visit in Dermatology: 08/03/2022 Objective/Assessment/Plan Skin Exam 1. SEBORRHEIC KERATOSIS (2) Right Thigh - Anterior (2) Stuck-on verrucous, variably pigmented papules. Observational course. Monitor for growth and changes. The nature of sun-induced photo-aging and skin cancers is discussed. Sun avoidance, protective clothing, and the use of 30-SPF sunscreens is advised. Patient is instructed to perform regular self exams. Observe for changing, symptomatic, or new skin lesions and seek care with the patient's primary care provider or with dermatology if any lesions of concern are noted. Follow-up as noted below or as needed. Chief Complaint: Patient presents with: LESION, SKIN: Right thigh Subjective and Objective HPI: Marquita Omalley is a 49 year old female who presents for: For individual lesion(s). Lesion(s): x 2 Location(s): right thigh Duration: 6-8 months Symptoms: itchy occasionally Severity: mild Inciting factors: removing cloths Associated symptoms/previous treatments: none Past medical history is reviewed. Medication list is reviewed. Physical Exam included: Right thigh Intake by: RUPINDER Alvarez APRN.RENETTA [facility] 12-04-2024 History of Present illness Narrative Images from the original note were not included. Department of Dermatology Carly Colón APRN.RENETTA 12/04/2024 Last visit in Dermatology: 08/03/2022 Objective/Assessment/Plan Skin Exam 1. SEBORRHEIC KERATOSIS (2) Right Thigh - Anterior (2) Stuck-on verrucous, variably pigmented papules. Observational course. Monitor for growth and changes. The nature of sun-induced photo-aging and skin cancers is discussed. Sun avoidance, protective clothing, and the use of 30-SPF sunscreens is advised. Patient is instructed to perform regular self exams. Observe for changing, symptomatic, or new skin lesions and seek care with the patient's primary care provider or with dermatology if any lesions of concern are noted. Follow-up as noted below or as needed. Chief Complaint: Patient presents with: LESION, SKIN: Right thigh Subjective and Objective HPI: Marquita Omalley is a 49 year old female who presents for: For individual lesion(s). Lesion(s): x 2 Location(s): right thigh Duration: 6-8 months Symptoms: itchy occasionally Severity: mild Inciting factors: removing cloths Associated symptoms/previous treatments: none Past medical history is reviewed. Medication list is reviewed. Physical Exam included: Right thigh Intake by: RUPINDER Alvarez APRN.CAREER SERVICES OFFICER documented in this encounter [facility] 11-28-2024 Instructions Brigette Martin APRN.RENETTA - 11/28/2024 3:30 PM EDT Follow up in 6 months Consult to the dermatology Hydration, use Vaseline/Aquaphor mix with nystatin on the dry spots on breast documented in this encounter [facility] 11-28-2024 Note HNO ID: [id number] Author: BRIGETTE MARTIN APRN.RENETTA Service: ? Author Type: Nurse Practitioner Type: Progress Notes Filed: 11/28/2024 18:05 Note Text: This is a 49 year old female who presents today with: Patient presents with: Yearly Exam HISTORY OF PRESENT ILLNESS: Marquita Omalley is a 49 year old female with the past medical history anxiety, arthritis, depression, PTSD, presents today for a Yearly Exam. Patient noted a Spot/mole on the right thigh that looks irregular and pt is concerned. She had one spot removed in the past form her left thigh area. Sometimes the mole itches, no drainage, no color changes. Patient's grandmother has a history of skin cancer and is anxious and would to address at this visit. Pt was seeing dermatology in the past but stopped 3 years and would like to go see one. Asthma Inhaler /Symbicort - Symptoms better controlled -Denies any side effect Spot/Mole -Patient noticed mole on the right thigh, irregular. Denies any drainage, changes in color or increased in size. -Pt is concerned due to family history of cancer -Pt would like to see dermatology PAST MEDICAL HISTORY: PAST MEDICAL HISTORY Diagnosis Date Anxiety Arthritis Chest pain Depression Ear infection Migraines Obesity, Class II, BMI 35-39.9 02/20/2019 PTSD (post-traumatic stress disorder) Sciatica UTI (lower urinary tract infection) PAST SURGICAL HISTORY Procedure Laterality Date ABDOMINAL SURGERY HX APPENDECTOMY 1982 APPENDECTOMY HX BACK SURGERY HX BREAST SURGERY HX COLONOSCOPY SCREENING 02/13/2022 10 year next colonoscopy 2031 COLPOPEXY VAGINAL INTRAPERITONEAL APPROACH 01/23/2019 uterosacral ligament fixation FRACTURE SURGERY LIG/TRNSXJ FLP TUBE ABDL/VAG APPR UNI/BI 06/2007 MAMMO MAMMOGRAM 07/20/2010 OTHER lumbar spinal fusion L5-S1 PAST SURGICAL HISTORY OF 09/2008 Micro Disectomy L5S1 PAST SURGICAL HISTORY OF Left 2013 Left wrist surgery POST COLPORRHAPHY RECTOCELE W/WO PERINEORRHAPHY 01/23/2019 posterior repair REDUCTION OF LARGE BREAST 09/2006 Bilateral SKIN BIOPSY HX SLING OPER STRES INCONTINENCE 01/23/2019 TVT exact TONSILLECTOMY HX VAGINAL HYSTERECTOMY VAGINAL HYSTERECTOMY UTERUS 250 GM/< 01/23/2019 tubes and ovaries remain ALLERGIES Benadryl [Diphenhydramine], Lyrica [Pregabalin], Seasonal Allergies, and Sulfa (Sulfonamide Antibiotics) MEDICATIONS Current Outpatient Medications Medication Sig budesonide-formoterol (SYMBICORT) 160-4.5 mcg/actuation inhaler Inhale 2 puffs as instructed two times a day. albuterol HFA (PROVENTIL HFA, VENTOLIN HFA) 90 mcg/actuation inhaler Inhale 2 puffs as instructed four times a day as needed. predniSONE (DELTASONE) 20 mg tablet Take 2 tablets by mouth once daily. MAGNESIUM ORAL Take by mouth. ASHWAGANDHA EXTRACT ORAL Take by mouth once daily. qbrevwue-lita-vesnn-oreg-capry 100 mg-150 mg- 50 mg-150 mg cap Take by mouth once daily. Zinc Acetate, Oral, 50 mg (zinc) cap Take by mouth once daily. vitamin b complex capsule Take 1 capsule by mouth once daily. gabapentin (NEURONTIN) 600 mg tablet Take 1 tablet by mouth three times a day for 180 days. traZODone (DESYREL) 150 mg tablet Take 1 tablet by mouth daily at bedtime. famotidine (PEPCID) 20 mg tablet Take 1 tablet by mouth two times a day as needed. No current facility-administered medications for this visit. FAMILY HISTORY Problem Relation Age of Onset Allergies Mother Headache Mother Obesity Mother Hypertension Father Heart Father Obesity Sister Allergies Sister Headache Sister Diabetes Maternal Grandmother Emphysema Maternal Grandmother Breast Cancer Maternal Grandmother Emphysema Maternal Grandfather Alcohol/Drug Paternal Grandfather Headache Daughter other (Pneumonia) Daughter Headache Daughter Headache Son other (RSV) Son Psychiatry Maternal Uncle Suicide Social History Tobacco Use Smoking status: Former Current packs/day: 0.00 Types: Cigarettes Quit date: 08/03/2005 Years since quittin.3 Smokeless tobacco: Never Vaping Use Vaping status: Never Used Substance Use Topics Alcohol use: Not Currently Comment: Rarely Drug use: No REVIEW OF SYSTEMS PAIN ASSESSMENT: Negative for pain, history of chronic pain, or current treatment for a chronic pain condition. GENERAL: No weight loss, malaise or fevers. Intentional weight loss HEENT: Negative for frequent or significant headaches, No changes in hearing or vision, no nose bleeds or other nasal problems. Positive for allergic. NECK: Negative for lumps, goiter, pain and significant neck swelling RESPIRATORY: Negative for cough, hemoptysis, wheezing, COPD, dyspnea or shortness of breath CARDIOVASCULAR: Negative for chest pain, leg swelling, hypertension, CHF or palpitations GI: No nausea, vomiting. Positive for diarrhea r/t dumping syndrome MUSCULOSKELETAL: Negative for joint swelling, back pain or muscl (more content not included)... [facility] 11-28-2024 History of Present illness Narrative This is a 49 year old female who presents today with: Patient presents with: Yearly Exam HISTORY OF PRESENT ILLNESS: Marquita Omalley is a 49 year old female with the past medical history anxiety, arthritis, depression, PTSD, presents today for a Yearly Exam. Patient noted a Spot/mole on the right thigh that looks irregular and pt is concerned. She had one spot removed in the past form her left thigh area. Sometimes the mole itches, no drainage, no color changes. Patient's grandmother has a history of skin cancer and is anxious and would to address at this visit. Pt was seeing dermatology in the past but stopped 3 years and would like to go see one. Asthma Inhaler /Symbicort - Symptoms better controlled -Denies any side effect Spot/Mole -Patient noticed mole on the right thigh, irregular. Denies any drainage, changes in color or increased in size. -Pt is concerned due to family history of cancer -Pt would like to see dermatology PAST MEDICAL HISTORY: PAST MEDICAL HISTORY Diagnosis Date Anxiety Arthritis Chest pain Depression Ear infection Migraines Obesity, Class II, BMI 35-39.9 02/20/2019 PTSD (post-traumatic stress disorder) Sciatica UTI (lower urinary tract infection) PAST SURGICAL HISTORY Procedure Laterality Date ABDOMINAL SURGERY HX APPENDECTOMY 1982 APPENDECTOMY HX BACK SURGERY HX BREAST SURGERY HX COLONOSCOPY SCREENING 02/13/2022 10 year next colonoscopy 2031 COLPOPEXY VAGINAL INTRAPERITONEAL APPROACH 01/23/2019 uterosacral ligament fixation FRACTURE SURGERY LIG/TRNSXJ FLP TUBE ABDL/VAG APPR UNI/BI 06/2007 MAMMO MAMMOGRAM 07/20/2010 OTHER lumbar spinal fusion L5-S1 PAST SURGICAL HISTORY OF 09/2008 Micro Disectomy L5S1 PAST SURGICAL HISTORY OF Left 2013 Left wrist surgery POST COLPORRHAPHY RECTOCELE W/WO PERINEORRHAPHY 01/23/2019 posterior repair REDUCTION OF LARGE BREAST 09/2006 Bilateral SKIN BIOPSY HX SLING OPER STRES INCONTINENCE 01/23/2019 TVT exact TONSILLECTOMY HX VAGINAL HYSTERECTOMY VAGINAL HYSTERECTOMY UTERUS 250 GM/< 01/23/2019 tubes and ovaries remain ALLERGIES Benadryl [Diphenhydramine], Lyrica [Pregabalin], Seasonal Allergies, and Sulfa (Sulfonamide Antibiotics) MEDICATIONS Current Outpatient Medications Medication Sig budesonide-formoterol (SYMBICORT) 160-4.5 mcg/actuation inhaler Inhale 2 puffs as instructed two times a day. albuterol HFA (PROVENTIL HFA, VENTOLIN HFA) 90 mcg/actuation inhaler Inhale 2 puffs as instructed four times a day as needed. predniSONE (DELTASONE) 20 mg tablet Take 2 tablets by mouth once daily. MAGNESIUM ORAL Take by mouth. ASHWAGANDHA EXTRACT ORAL Take by mouth once daily. beacmdle-jbst-shatq-oreg-capry 100 mg-150 mg- 50 mg-150 mg cap Take by mouth once daily. Zinc Acetate, Oral, 50 mg (zinc) cap Take by mouth once daily. vitamin b complex capsule Take 1 capsule by mouth once daily. gabapentin (NEURONTIN) 600 mg tablet Take 1 tablet by mouth three times a day for 180 days. traZODone (DESYREL) 150 mg tablet Take 1 tablet by mouth daily at bedtime. famotidine (PEPCID) 20 mg tablet Take 1 tablet by mouth two times a day as needed. No current facility-administered medications for this visit. FAMILY HISTORY Problem Relation Age of Onset Allergies Mother Headache Mother Obesity Mother Hypertension Father Heart Father Obesity Sister Allergies Sister Headache Sister Diabetes Maternal Grandmother Emphysema Maternal Grandmother Breast Cancer Maternal Grandmother Emphysema Maternal Grandfather Alcohol/Drug Paternal Grandfather Headache Daughter other (Pneumonia) Daughter Headache Daughter Headache Son other (RSV) Son Psychiatry Maternal Uncle Suicide Social History Tobacco Use Smoking status: Former Current packs/day: 0.00 Types: Cigarettes Quit date: 08/03/2005 Years since quittin.3 Smokeless tobacco: Never Vaping Use Vaping status: Never Used Substance Use Topics Alcohol use: Not Currently Comment: Rarely Drug use: No REVIEW OF SYSTEMS PAIN ASSESSMENT: Negative for pain, history of chronic pain, or current treatment for a chronic pain condition. GENERAL: No weight loss, malaise or fevers. Intentional weight loss HEENT: Negative for frequent or significant headaches, No changes in hearing or vision, no nose bleeds or other nasal problems. Positive for allergic. NECK: Negative for lumps, goiter, pain and significant neck swelling RESPIRATORY: Negative for cough, hemoptysis, wheezing, COPD, dyspnea or shortness of breath CARDIOVASCULAR: Negative for chest pain, leg swelling, hypertension, CHF or palpitations GI: No nausea, vomiting. Positive for diarrhea r/t dumping syndrome MUSCULOSKELETAL: Negative for joint swelling, back pain or muscle pain. Positive left knee pain- injections and rib pain. SKIN: Negative for lesions, rash. Positive for itching on the nipple PSYCH: Negative for sleep disturbance, mood disorder and recent psychosocial stressors NEURO: No history of headaches, syncope, paralysis, seizures or tremors All other reviewed and negative other than HPI. EXAM: BP 136/80 Pulse (!) 58 Resp 16 Wt 83 kg (183 lb) LMP 01/03/2019 (Exact Date) SpO2 99% BMI 31.41 kg/m PHYSICAL EXAM: General Appearance: Well appearing, alert, in no acute distress, well-hydrated, well nourished.. Skin: Skin color, texture, turgor normal, no suspicious rashes or lesions. Macular/slightly papular brown lesion on the right anterior thigh -- appx 5mm. Head: Normocephalic, no masses, lesions, tenderness or abnormalities. Eyes: Anicteric sclera. Pupils are equally round and reactive to light. Extraocular movements are intact. . Ears: External ears normal, canals clear. Nose/Sinuses: Nares normal, septum midline, mucosa normal, no drainage or sinus tenderness. Oropharynx: Lips, mucosa, and tongue normal, teeth and gums normal, oropharynx normal. Neck: Supple, no adenopathy; thyroid symmetric, normal size, no bruits. Lungs: Lungs clear to auscultation. No wheezing, rhonchi, rales.. Heart: RRR without murmur, gallop, or rubs. No ectopy. Abdomen: Abdomen soft, non-tender. Bowel sounds normal. No masses, organomegaly. Musculoskeletal: No joint swelling, deformity, or tenderness. Neurologic: Gait normal. ASSESSMENT/PLAN: 1. Routine physical examination - ICD9: V70.0, ICD10: Z00.00 (primary diagnosis) - Counseled on healthy diet and regular exercise 2. Skin mole - ICD9: 216.9, ICD10: D22.9 -Flat non-painful spot/mole on the right thigh -Irregular, no drainage, no changes in color -Dermatology consult -Past history of punch biopsy on the left side of the thigh 3. Mild intermittent asthma, uncomplicated (HCC) - ICD9: 493.90, ICD10: J45.20 - Mild intermittent asthma stable - Continue current medications - Avoidance of triggers recommended -Symbicort is helping with the symptoms - Well controlled Discussed treatment plan and patient voices understanding. Patient's questions answered appropriately. Medications and potential side effects were discussed and patient voices understanding. Return to the office as scheduled or as needed for worsening/no improvement. Brigette Martin APRN.CAREER SERVICES OFFICER The patient indicates understanding of these issues and agrees with the plan. documented in this encounter [facility] 11-17-2024 Note HNO ID: [id number] Author: BRIGETTE MARTIN APRN.RENETTA Service: ? Author Type: Nurse Practitioner Type: Progress Notes Filed: 11/17/2024 12:46 Note Text: This is a 49 year old female who presents today with: Layne Omalley is a 49-year-old female with a history of asthma, presenting for follow-up after an urgent care visit and evaluation of rib pain. HISTORY OF PRESENT ILLNESS: Rib Pain: Follow-up from urgent care 11/07/24. - Severe rib pain that started after a hug/crack back. - Pain exacerbated by twisting and lying down; unable to wear a bra due to pressure on ribs. - Tried wrapping ribs for compression but found it too painful. - Pain described as beyond anything ever experienced. - Pain began after a hard hug from her , which initially provided relief. - Using ibuprofen despite gastric pain history, as it is the only medication providing relief. - Tried Tylenol, arthritis formula, and various topical treatments (Biofreeze patches, Salonpas patches, Biofreeze, green cream, Voltaren, Aleve roll-on) with minimal relief. - Best relief achieved with combination of ibuprofen and Biofreeze patch. - Denies taking any medication since yesterday morning. Asthma: - Experiencing increased difficulty breathing. - Using Advair daily, once a day; did not use it this morning. - Reports sensation of having something in her mouth after using Advair, despite rinsing and brushing. - Ran out of albuterol 3 days ago and has not used it since. PAST MEDICAL HISTORY: PAST MEDICAL HISTORY Diagnosis Date Anxiety Arthritis Chest pain Depression Ear infection Migraines Obesity, Class II, BMI 35-39.9 02/20/2019 PTSD (post-traumatic stress disorder) Sciatica UTI (lower urinary tract infection) PAST SURGICAL HISTORY Procedure Laterality Date ABDOMINAL SURGERY HX APPENDECTOMY 1982 APPENDECTOMY HX BACK SURGERY HX BREAST SURGERY HX COLONOSCOPY SCREENING 02/13/2022 10 year next colonoscopy 2031 COLPOPEXY VAGINAL INTRAPERITONEAL APPROACH 01/23/2019 uterosacral ligament fixation FRACTURE SURGERY LIG/TRNSXJ FLP TUBE ABDL/VAG APPR UNI/BI 06/2007 MAMMO MAMMOGRAM 07/20/2010 OTHER lumbar spinal fusion L5-S1 PAST SURGICAL HISTORY OF 09/2008 Micro Disectomy L5S1 PAST SURGICAL HISTORY OF Left 2013 Left wrist surgery POST COLPORRHAPHY RECTOCELE W/WO PERINEORRHAPHY 01/23/2019 posterior repair REDUCTION OF LARGE BREAST 09/2006 Bilateral SKIN BIOPSY HX SLING OPER STRES INCONTINENCE 01/23/2019 TVT exact TONSILLECTOMY HX VAGINAL HYSTERECTOMY VAGINAL HYSTERECTOMY UTERUS 250 GM/< 01/23/2019 tubes and ovaries remain ALLERGIES Benadryl [Diphenhydramine], Lyrica [Pregabalin], Seasonal Allergies, and Sulfa (Sulfonamide Antibiotics) MEDICATIONS Current Outpatient Medications Medication Sig budesonide-formoterol (SYMBICORT) 160-4.5 mcg/actuation inhaler Inhale 2 puffs as instructed two times a day. albuterol HFA (PROVENTIL HFA, VENTOLIN HFA) 90 mcg/actuation inhaler Inhale 2 puffs as instructed four times a day as needed. predniSONE (DELTASONE) 20 mg tablet Take 2 tablets by mouth once daily. MAGNESIUM ORAL Take by mouth. ASHWAGANDHA EXTRACT ORAL Take by mouth once daily. kpduqhgs-nsch-tidqf-oreg-capry 100 mg-150 mg- 50 mg-150 mg cap Take by mouth once daily. Zinc Acetate, Oral, 50 mg (zinc) cap Take by mouth once daily. vitamin b complex capsule Take 1 capsule by mouth once daily. gabapentin (NEURONTIN) 600 mg tablet Take 1 tablet by mouth three times a day for 180 days. traZODone (DESYREL) 150 mg tablet Take 1 tablet by mouth daily at bedtime. famotidine (PEPCID) 20 mg tablet Take 1 tablet by mouth two times a day as needed. No current facility-administered medications for this visit. FAMILY HISTORY Problem Relation Age of Onset Allergies Mother Headache Mother Obesity Mother Hypertension Father Heart Father Obesity Sister Allergies Sister Headache Sister Diabetes Maternal Grandmother Emphysema Maternal Grandmother Breast Cancer Maternal Grandmother Emphysema Maternal Grandfather Alcohol/Drug Paternal Grandfather Headache Daughter other (Pneumonia) Daughter Headache Daughter Headache Son other (RSV) Son Psychiatry Maternal Uncle Suicide Social History Tobacco Use Smoking status: Former Current packs/day: 0.00 Types: Cigarettes Quit date: 08/03/2005 Years since quittin.3 Smokeless tobacco: Never Vaping Use Vaping status: Never Used Substance Use Topics Alcohol use: Not Currently Comment: Rarely Drug use: No REVIEW OF SYSTEMS Ears/Nose/Mouth/Throat: (+) foreign body sensation in mouth after using steroid inhaler. Respiratory: (+) shortness of breath Musculoskeletal: (+) rib pain EXAM: BP 126/84 Pulse 71 Resp 16 LMP 01/03/2019 (Exact Date) SpO2 97% PHYSICAL EXAM: General Appearance: Well appearing, alert, in no acute distress, well-hydrated, well nourished.. (more content not included)... [facility] 11-17-2024 History of Present illness Narrative This is a 49 year old female who presents today with: Layne Omalley is a 49-year-old female with a history of asthma, presenting for follow-up after an urgent care visit and evaluation of rib pain. HISTORY OF PRESENT ILLNESS: Rib Pain: Follow-up from urgent care 11/07/24. - Severe rib pain that started after a hug/crack back. - Pain exacerbated by twisting and lying down; unable to wear a bra due to pressure on ribs. - Tried wrapping ribs for compression but found it too painful. - Pain described as beyond anything ever experienced. - Pain began after a hard hug from her , which initially provided relief. - Using ibuprofen despite gastric pain history, as it is the only medication providing relief. - Tried Tylenol, arthritis formula, and various topical treatments (Biofreeze patches, Salonpas patches, Biofreeze, green cream, Voltaren, Aleve roll-on) with minimal relief. - Best relief achieved with combination of ibuprofen and Biofreeze patch. - Denies taking any medication since yesterday morning. Asthma: - Experiencing increased difficulty breathing. - Using Advair daily, once a day; did not use it this morning. - Reports sensation of having something in her mouth after using Advair, despite rinsing and brushing. - Ran out of albuterol 3 days ago and has not used it since. PAST MEDICAL HISTORY: PAST MEDICAL HISTORY Diagnosis Date Anxiety Arthritis Chest pain Depression Ear infection Migraines Obesity, Class II, BMI 35-39.9 02/20/2019 PTSD (post-traumatic stress disorder) Sciatica UTI (lower urinary tract infection) PAST SURGICAL HISTORY Procedure Laterality Date ABDOMINAL SURGERY HX APPENDECTOMY 1982 APPENDECTOMY HX BACK SURGERY HX BREAST SURGERY HX COLONOSCOPY SCREENING 02/13/2022 10 year next colonoscopy 2031 COLPOPEXY VAGINAL INTRAPERITONEAL APPROACH 01/23/2019 uterosacral ligament fixation FRACTURE SURGERY LIG/TRNSXJ FLP TUBE ABDL/VAG APPR UNI/BI 06/2007 MAMMO MAMMOGRAM 07/20/2010 OTHER lumbar spinal fusion L5-S1 PAST SURGICAL HISTORY OF 09/2008 Micro Disectomy L5S1 PAST SURGICAL HISTORY OF Left 2013 Left wrist surgery POST COLPORRHAPHY RECTOCELE W/WO PERINEORRHAPHY 01/23/2019 posterior repair REDUCTION OF LARGE BREAST 09/2006 Bilateral SKIN BIOPSY HX SLING OPER STRES INCONTINENCE 01/23/2019 TVT exact TONSILLECTOMY HX VAGINAL HYSTERECTOMY VAGINAL HYSTERECTOMY UTERUS 250 GM/< 01/23/2019 tubes and ovaries remain ALLERGIES Benadryl [Diphenhydramine], Lyrica [Pregabalin], Seasonal Allergies, and Sulfa (Sulfonamide Antibiotics) MEDICATIONS Current Outpatient Medications Medication Sig budesonide-formoterol (SYMBICORT) 160-4.5 mcg/actuation inhaler Inhale 2 puffs as instructed two times a day. albuterol HFA (PROVENTIL HFA, VENTOLIN HFA) 90 mcg/actuation inhaler Inhale 2 puffs as instructed four times a day as needed. predniSONE (DELTASONE) 20 mg tablet Take 2 tablets by mouth once daily. MAGNESIUM ORAL Take by mouth. ASHWAGANDHA EXTRACT ORAL Take by mouth once daily. gwcyzvmq-lwmt-bbdky-oreg-capry 100 mg-150 mg- 50 mg-150 mg cap Take by mouth once daily. Zinc Acetate, Oral, 50 mg (zinc) cap Take by mouth once daily. vitamin b complex capsule Take 1 capsule by mouth once daily. gabapentin (NEURONTIN) 600 mg tablet Take 1 tablet by mouth three times a day for 180 days. traZODone (DESYREL) 150 mg tablet Take 1 tablet by mouth daily at bedtime. famotidine (PEPCID) 20 mg tablet Take 1 tablet by mouth two times a day as needed. No current facility-administered medications for this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 75% of usual intake for more than 2 weeks? No METHOD OF INSTRUCTION: Individual instruction AND Group class instruction PATIENT / FAMILY RESPONSE: Nutrition outcome statement: Expect attention to diet to assist with weight management and minimum 1200 calories/2 liters of fluids per day. 18 months post op LSG (Aminian) Net weight loss 70 lbs (250 lbs initial) Pre-surgery weight: 254 lbs 28 % TWL weight loss as expected Nearly 9 lb weight loss since last session (188.8 lbs) Desired weight: 145 lbs Diet recall indicates a consistent meal pattern with regular meals and snacks. Patient tolerates Phase V diet plan with minimal complaints. She sometimes has a hard time with chicken and beef. Patient confirms to eat slowly and separates fluids from foods as recommended. >1000 calories/day meets minimum recommendations >79 gm protein intake/day Meets recommendations >64 oz fluid intake/day Meets recommendations Consistent with appropriate vitamin/minerals (4 bariatric fusion complete chewables, sometimes immunity booster pack) Meets recommendations Labs - WNL Exercise - walking with arm weights 3-4 times a week for 20-90 minutes would benefit from additional strength training, but in ankle pain Resting Metabolic Rate: 1424 Energy needs for weight loss: 8247-1211 calories per day (15-20 kcal/kg CBW) Protein needs: 79 grams protein per day (1.2 g/kg IBW kg) Reviewed nutrition principles of: 1. Continue to take all recommended vitamin/minerals: bariatric fusion complete chewables (2 in the AM, 2 in the PM) 2. Protein goal: >79 grams protein/day 3. Fluid goal: 64 ounces per day (no carbonation, caffeine, calories, alcohol) 4. Exercise goal: continue consistent walks: add in strength training as able with a goal of >150 moderate intensity exercise each week 5. Practice mindful eating habits-take small portions, eat slowly, chew thoroughly 6. Track meals and snacks with an radha; aim for 8771-1039 calories per day Nutrition Monitoring AND Evaluation:BMI <28 Criteria: weight check Need for Follow up: as needed and 2 years post op MNT Billing Type: Ambulatory Group 2 units Total Time (mins): [address] [facility] 11-06-2024 History of Present illness Narrative Radiology Service Progress Note PATIENT NAME: Marquita Omalley DATE OF SERVICE: November 06, 2024 TIME: 1:37 PM PATIENT IDENTITY VERIFICATION COMPLETED USING TWO (2) IDENTIFIERS: Name and Date of confirmed by patient verbally. FALL SCREENING: Has the patient had 2 falls in the last year or 1 fall with injury or currently using an Ambulatory Assistive Device (Walker, Cane, Wheelchair, Crutches, etc.)? No PATIENT GENDER DATA: Assigned female at . status: : No status: NO. PATIENT RELEVANT IMPLANT DATA REVIEWED: Not Applicable PATIENT PRESENTS WITH AN IMPLANTABLE OR ATTACHED CONVEYOR BELT REPAIRER: No RADIOLOGY DEPARTMENT: Mammography PERIPHERAL IV DATA: Not applicable SIGNED BY: Reyna Hudson November 06, 2024 1:37 PM documented in this encounter [facility] 11-06-2024 Note HNO ID: [id number] Author: MAGGIE CLEANING Mammo Tech Service: ? Author Type: Piercer Operator Type: Progress Notes Filed: 11/06/2024 13:37 Note Text: Radiology Service Progress Note PATIENT NAME: Marquita Omalley DATE OF SERVICE: November 06, 2024 TIME: 1:37 PM PATIENT IDENTITY VERIFICATION COMPLETED USING TWO (2) IDENTIFIERS: Name and Date of confirmed by patient verbally. FALL SCREENING: Has the patient had 2 falls in the last year or 1 fall with injury or currently using an Ambulatory Assistive Device (Walker, Cane, Wheelchair, Crutches, etc.)? No PATIENT GENDER DATA: Assigned female at . status: : No status: NO. PATIENT RELEVANT IMPLANT DATA REVIEWED: Not Applicable PATIENT PRESENTS WITH AN IMPLANTABLE OR ATTACHED CONVEYOR BELT REPAIRER: No RADIOLOGY DEPARTMENT: Mammography PERIPHERAL IV DATA: Not applicable SIGNED BY: Maggie Cleaning [employer] November 06, 2024 1:37 PM [facility] 10-28-2024 Note Patient Outreach (FA MPWS) MARQUITA OMALLEY I ([id number]) 1975 F Date Time Provider Department 10/28/24 BRIGETTE MARTIN During your visit today, we recorded the following information about you: Allergies As of Date: 10/28/2024 Noted Allergy Reaction BENADRYL (DIPHENHYDRAMINE) 02/13/2022 5 - Intolerance 14 - Other: See Comments Comments: Jittery, shaking, skin feels like its crawling, hyper LYRICA (PREGABALIN) 08/03/2010 14 - Other: See Comments Comments: Elevates blood pressure SEASONAL ALLERGIES 08/03/2010 14 - Other: See Comments Comments: Mostly Pollen-stuffy nose,headache SULFA (SULFONAMIDE ANTIBIOTICS) 08/03/2010 4 - Hives Date Reviewed: 10/21/2024 Reviewed by: Eliezer Garcia RN - Fully Assessed Visit Diagnosis:Encounter for screening mammogram for breast cancer [Z12.31] Order(s):IRIS SCREENING W VIELKA [[id number]] Order #: [id number] FUTURE Prescriptions as of 11/28/2024 - budesonide-formoterol (SYMBICORT) 160-4.5 mcg/actuation inhaler Inhale 2 puffs as instructed two times a day. - albuterol HFA (PROVENTIL HFA, VENTOLIN HFA) 90 mcg/actuation inhaler Inhale 2 puffs as instructed four times a day as needed. - predniSONE (DELTASONE) 20 mg tablet Take 2 tablets by mouth once daily. - MAGNESIUM ORAL Take by mouth. - ASHWAGANDHA EXTRACT ORAL Take by mouth once daily. - eomtnthd-uzcn-zxihe-oreg-capry 100 mg-150 mg- 50 mg-150 mg cap Take by mouth once daily. - Zinc Acetate, Oral, 50 mg (zinc) cap Take by mouth once daily. - vitamin b complex capsule Take 1 capsule by mouth once daily. - gabapentin (NEURONTIN) 600 mg tablet Take 1 tablet by mouth three times a day for 180 days. - traZODone (DESYREL) 150 mg tablet Take 1 tablet by mouth daily at bedtime. - famotidine (PEPCID) 20 mg tablet Take 1 tablet by mouth two times a day as needed. Problem List As Of Date 10/28/2024 Noted Resolved Migraine without aura, intractable, without sta*02/20/2019 Obesity, Class II, BMI 35-39.9 [E66.812] 02/20/2019 Anxiety with depression [F41.8] 02/20/2019 Mild intermittent asthma without complication [*01/12/2020 ALISHA (obstructive sleep apnea) [G47.33] 08/31/2020 Obstructive sleep apnea (adult) (pediatric) [G4*04/11/2021 Vitamin D deficiency [E55.9] 02/05/2023 Diagnosed: 02/05/2023 NAFLD (nonalcoholic fatty liver disease) [K76.0]02/05/2023 Morbid obesity (HCC) [E66.01] 02/05/2023 History of lumbar fusion [Z98.1] 05/02/2023 Diagnosed: 05/02/2023 Polyp of gallbladder [K82.4] 09/15/2022 Diagnosed: 05/02/2023 Von Willebrand disease (HCC) [D68.00] 05/02/2023 Diagnosed: 05/02/2023 Obesity, Class III, BMI >= 40 [E66.813] 05/11/2023 Acute pain of left knee [M25.562] 05/26/2024 Encounter Status:Closed by EPIC, PRODUSER on 11/28/24 [facility] 10-21-2024 Note HNO ID: [id number] Author: LEORA HA MD Service: ? Author Type: Physician Type: Progress Notes Filed: 10/21/2024 14:35 Note Text: Subjective: Patient is status post her CAT scan of her abdomen and pelvis on 09/23/2024. This showed a small umbilical defect as well as a rather large diastases recti. Patient states that she had a meeting with her plastic surgeon and what she took from that was he was not interested in doing such a large repair of the diastases recti as well as an abdominoplasty. Objective:Blood pressure 130/78, pulse 107, temperature 36.6 ?C (97.8 ?F), weight 83.6 kg (184 lb 3.2 oz), last menstrual period 01/03/2019, SpO2 99%. Small umbilical defect is reducible. No rebound guarding or peritoneal pain. Assessment:Diastasis recti (primary encounter diagnosis) Umbilical hernia without obstruction and without gangrene Plan: I am to refer her up to the hernia center to be evaluated for a possible laparoscopic umbilical hernia repair with possible diastases recti repair. If that can be done laparoscopically then hopefully of the abdominoplasty can be done easier. [facility] 10-21-2024 History of Present illness Narrative Subjective: Patient is status post her CAT scan of her abdomen and pelvis on 09/23/2024. This showed a small umbilical defect as well as a rather large diastases recti. Patient states that she had a meeting with her plastic surgeon and what she took from that was he was not interested in doing such a large repair of the diastases recti as well as an abdominoplasty. Objective:Blood pressure 130/78, pulse 107, temperature 36.6 C (97.8 F), weight 83.6 kg (184 lb 3.2 oz), last menstrual period 01/03/2019, SpO2 99%. Small umbilical defect is reducible. No rebound guarding or peritoneal pain. Assessment:Diastasis recti (primary encounter diagnosis) Umbilical hernia without obstruction and without gangrene Plan: I am to refer her up to the hernia center to be evaluated for a possible laparoscopic umbilical hernia repair with possible diastases recti repair. If that can be done laparoscopically then hopefully of the abdominoplasty can be done easier. documented in this encounter [facility] 09-29-2024 Telephone encounter Note Called and left a detailed voicemail notifying patient of providers message. Clinic phone number was left in case patient had any questions. Taylor Campbell RN [facility] 09-29-2024 Miscellaneous Notes Called and left a detailed voicemail notifying patient of providers message. Clinic phone number was left in case patient had any questions. Taylor Campbell RN Can please let patient know that I reviewed the CT results. It looks like there was some incidental small lung nodules noted. This is not an uncommon finding. Because of the nodules are tiny and her smoking history, the recommendation is to repeat the CT scan in one year to ensure stability. The order is in and will just need to be scheduled at that time. Brigette Martin APRN.RENETTA Pt called in and reports she had an abdominal CT done with Dr Ha because he was going to do hernia surgery. She states the report showed nodules on her lung. He put in an order for a consult to the actionable findings clinic. She said she received a MyChart message today with a number to call to set up an appointment with them, but she said it could take up to 2 weeks to get that done. Pt wants to know why her PCPs office isn't able to put in an order for something now so she can get answers. Pt states she doesn't want to wait 2 weeks, this is her health and she needs something to focus on now. She states the nurse at Dr aH's office just blew her off when she called them. Please call and advise Pt. Taylor Campbell RN documented in this encounter [facility] 09-29-2024 Telephone encounter Note Can please let patient know that I reviewed the CT results. It looks like there was some incidental small lung nodules noted. This is not an uncommon finding. Because of the nodules are tiny and her smoking history, the recommendation is to repeat the CT scan in one year to ensure stability. The order is in and will just need to be scheduled at that time. Brigette Martin APRN.RENETTA [facility] 09-29-2024 Telephone encounter Note Pt called in and reports she had an abdominal CT done with Dr Ha because he was going to do hernia surgery. She states the report showed nodules on her lung. He put in an order for a consult to the actionable findings clinic. She said she received a [employer] message today with a number to call to set up an appointment with them, but she said it could take up to 2 weeks to get that done. Pt wants to know why her PCPs office isn't able to put in an order for something now so she can get answers. Pt states she doesn't want to wait 2 weeks, this is her health and she needs something to focus on now. She states the nurse at Dr Ha's office just blew her off when she called them. Please call and advise Pt. Taylor Campbell RN [facility] 09-29-2024 Telephone encounter Note Should we order a Chest CT and have her make a follow up appointment with Dr. Ha? Please advise.Eliezer Garcia RN [facility] 09-29-2024 Miscellaneous Notes Should we order a Chest CT and have her make a follow up appointment with Dr. Ha? Please advise.Eliezer Garcia RN Patient calling in stating if a CT chest is needed she would like the order put it and she will schedule it. Otherwise patient would like a call back with the next steps. Heather Nicole LPN Ct Abd/Pelvis 09/23/24 Impression IMPRESSION: Diastases of the rectus abdominis musculature. Small umbilical hernia, containing omental fat. No acute abdominal or pelvic process is identified. Subcentimeter pulmonary nodules, measuring up to 5 mm in size. Message routed to provider to advise regarding Mychart question. Thank you documented in this encounter [facility] 09-29-2024 Telephone encounter Note Patient calling in stating if a CT chest is needed she would like the order put it and she will schedule it. Otherwise patient would like a call back with the next steps. Heather Nicole LPN [facility] 09-25-[address] Abd/Pelvis 09/23/24 Impression IMPRESSION: Diastases of the rectus abdominis musculature. Small umbilical hernia, containing omental fat. No acute abdominal or pelvic process is identified. Subcentimeter pulmonary nodules, measuring up to 5 mm in size. Message routed to provider to advise regarding Mychart question. Thank you [facility] 09-23-2024 History of Present illness Narrative Radiology Service Progress Note DATE OF SERVICE: September 23, 2024 TIME: 2:55 PM PATIENT IDENTITY VERIFICATION COMPLETED USING TWO (2) STANDARD IDENTIFIERS: Name and Date of confirmed by patient verbally. FALL SCREENING: Has the patient had 2 falls in the last year or 1 fall with injury or currently using an Ambulatory Assistive Device (Walker, Cane, Wheelchair, Crutches, etc.)? No PATIENT GENDER DATA: Assigned female at . status: : No status: NO. PATIENT RELEVANT IMPLANT DATA REVIEWED: Yes PATIENT PRESENTS WITH AN IMPLANTABLE OR ATTACHED CONVEYOR BELT REPAIRER: No ALLERGIES: Reviewed and unchanged CONTRAST ALLERGY: NO. EXAM: CT -CONTRAST INDUCED NEPHROPATHY RISK FACTORS: Not applicable CREATININE: Creatinine Date Value Ref Range Status 05/26/2024 0.83 0.58 - 0.96 mg/dL Final 10/05/2023 0.70 0.58 - 0.96 mg/dL Final 05/12/2023 0.68 0.58 - 0.96 mg/dL Final Estimated Glomerular Filtration Rate Date Value Ref Range Status 05/26/2024 87 >=60 mL/min/1.73m Final Comment: Estimated Glomerular Filtration Rate (eGFR) is calculated using the 2020 CKD-EPI creatinine equation. This equation utilizes serum creatinine, sex, and age as parameters. The creatinine assay has traceable calibration to isotope dilution-mass spectrometry. Refer to KDIGO guidelines for clinical interpretation. In patients with unstable renal function, e.g. those with acute kidney injury, the eGFR may not accurately reflect actual GFR. eGFR- Date Value Ref Range Status 03/12/2019 >60 Final P.O.C.T. RESULTS: POC done: Yes, See Lab Tab September 23, 2024 TREATMENT: N/A PERIPHERAL IV DATA: Ambulatory: A peripheral IV was started in the Left antecubital site with a Angio cath: 22 gauge. RADIOLOGY DEPARTMENT: CT; Exam(s) Completed: Abdomen/Pelvis SIGNATURE: RT Almas(R) PATIENT NAME: Marquita Omalley DATE: September 23, 2024 TIME: 2:55 PM documented in this encounter [facility] 09-23-2024 Note HNO ID: [id number] Author: ALFRED DANIELS RT(R) Service: ? Author Type: Piercer Operator Type: Progress Notes Filed: 09/23/2024 14:55 Note Text: Radiology Service Progress Note DATE OF SERVICE: September 23, 2024 TIME: 2:55 PM PATIENT IDENTITY VERIFICATION COMPLETED USING TWO (2) STANDARD IDENTIFIERS: Name and Date of confirmed by patient verbally. FALL SCREENING: Has the patient had 2 falls in the last year or 1 fall with injury or currently using an Ambulatory Assistive Device (Walker, Cane, Wheelchair, Crutches, etc.)? No PATIENT GENDER DATA: Assigned female at . status: : No status: NO. PATIENT RELEVANT IMPLANT DATA REVIEWED: Yes PATIENT PRESENTS WITH AN IMPLANTABLE OR ATTACHED CONVEYOR BELT REPAIRER: No ALLERGIES: Reviewed and unchanged CONTRAST ALLERGY: NO. EXAM: CT -CONTRAST INDUCED NEPHROPATHY RISK FACTORS: Not applicable CREATININE: Creatinine Date Value Ref Range Status 05/26/2024 0.83 0.58 - 0.96 mg/dL Final 10/05/2023 0.70 0.58 - 0.96 mg/dL Final 05/12/2023 0.68 0.58 - 0.96 mg/dL Final Estimated Glomerular Filtration Rate Date Value Ref Range Status 05/26/2024 87 >=60 mL/min/1.73m? Final Comment: Estimated Glomerular Filtration Rate (eGFR) is calculated using the 2020 CKD-EPI creatinine equation. This equation utilizes serum creatinine, sex, and age as parameters. The creatinine assay has traceable calibration to isotope dilution-mass spectrometry. Refer to KDIGO guidelines for clinical interpretation. In patients with unstable renal function, e.g. those with acute kidney injury, the eGFR may not accurately reflect actual GFR. eGFR- Date Value Ref Range Status 03/12/2019 >60 Final P.O.C.T. RESULTS: POC done: Yes, See Lab Tab September 23, 2024 TREATMENT: N/A PERIPHERAL IV DATA: Ambulatory: A peripheral IV was started in the Left antecubital site with a Angio cath: 22 gauge. RADIOLOGY DEPARTMENT: CT; Exam(s) Completed: Abdomen/Pelvis SIGNATURE: RT Almas(R) PATIENT NAME: Marquita Omalley DATE: September 23, 2024 TIME: 2:55 PM [facility] 09-09-2024 Note HNO ID: [id number] Author: LEORA HA MD Service: ? Author Type: Physician Type: Progress Notes Filed: 09/09/2024 11:23 Note Text: HISTORY AND PHYSICAL Marquita Omalley 1975 REFERRING PHYSICIAN: Brigette Martin APRN.C* CHIEF COMPLAINT: Consult (hernia) HPI: The patient is a 48 year old female with a complaint of bulge at her umbilical area. Patient had tubal ligation many many years ago noted that after that surgery she felt the pop and felt a bulge from where the previous port was located. She has recently seen a plastic surgeon since she is lost a lot of weight because she is interested in abdominoplasty. He recommended that she have her incisional defect repaired first.. The patient is being seen by me today at the request of Dr. Martin for my opinion and advice regarding Incisional hernia, without obstruction or gangrene (primary encounter diagnosis). PAST MEDICAL HISTORY Diagnosis Date Anxiety Arthritis Chest pain Depression Ear infection Migraines Obesity, Class II, BMI 35-39.9 02/20/2019 PTSD (post-traumatic stress disorder) Sciatica UTI (lower urinary tract infection) PAST SURGICAL HISTORY Procedure Laterality Date ABDOMINAL SURGERY HX APPENDECTOMY 1982 APPENDECTOMY HX BACK SURGERY HX BREAST SURGERY HX COLONOSCOPY SCREENING 02/13/2022 10 year next colonoscopy 2031 COLPOPEXY VAGINAL INTRAPERITONEAL APPROACH 01/23/2019 uterosacral ligament fixation FRACTURE SURGERY LIG/TRNSXJ FLP TUBE ABDL/VAG APPR UNI/BI 06/2007 MAMMO MAMMOGRAM 07/20/2010 OTHER lumbar spinal fusion L5-S1 PAST SURGICAL HISTORY OF 09/2008 Micro Disectomy L5S1 PAST SURGICAL HISTORY OF Left 2013 Left wrist surgery POST COLPORRHAPHY RECTOCELE W/WO PERINEORRHAPHY 01/23/2019 posterior repair REDUCTION OF LARGE BREAST 09/2006 Bilateral SKIN BIOPSY HX SLING OPER STRES INCONTINENCE 01/23/2019 TVT exact TONSILLECTOMY HX VAGINAL HYSTERECTOMY VAGINAL HYSTERECTOMY UTERUS 250 GM/< 01/23/2019 tubes and ovaries remain Current Outpatient Medications Medication Sig MAGNESIUM ORAL Take by mouth. ASHWAGANDHA EXTRACT ORAL Take by mouth once daily. cfjkykrh-zrdx-ocngi-oreg-capry 100 mg-150 mg- 50 mg-150 mg cap Take by mouth once daily. Zinc Acetate, Oral, 50 mg (zinc) cap Take by mouth once daily. vitamin b complex capsule Take 1 capsule by mouth once daily. albuterol HFA (PROVENTIL HFA, VENTOLIN HFA) 90 mcg/actuation inhaler Inhale 2 Puffs as instructed four times a day as needed. gabapentin (NEURONTIN) 600 mg tablet Take 1 tablet by mouth three times a day for 180 days. traZODone (DESYREL) 150 mg tablet Take 1 tablet by mouth daily at bedtime. famotidine (PEPCID) 20 mg tablet Take 1 tablet by mouth two times a day as needed. fluticasone-salmeterol (ADVAIR DISKUS) 250-50 mcg/dose inhaler Inhale 1 Puff as instructed two times a day. Rinse and gargle mouth after use with water. iv contrast (will be provided with radiology test) CT ABD/PEL -Inject, intravenously, once for 1 dose.No IV access, insert saline lock prior to the beginning of sedation, infusion, injection of imaging exam. Discontinue saline lock post exam. If Pt. has a central line or IVAD, may access for administration according to line specific nursing protocol. Once exam is complete flush line and de-access according to line specific nursing protocol in the CT contrast administration guidelines link. enteric contrast (will be provided with radiology test) For CT ABD/PEL W IVCON Routine order Administer, As Directed One Time Only, via Oral, Rectal, both Oral and Rectal, Enteric Tube, Stoma or Indwelling Catheter, Enteric Contrast as designated per enteric contrast guidelines No current facility-administered medications for this visit. ALLERGIES: Benadryl [Diphenhydramine], Lyrica [Pregabalin], Seasonal Allergies, and Sulfa (Sulfonamide Antibiotics) PERSONAL HISTORY: Social History Tobacco Use Smoking status: Former Current packs/day: 0.00 Types: Cigarettes Quit date: 08/03/2005 Years since quittin.1 Smokeless tobacco: Never Vaping Use Vaping status: Never Used Substance Use Topics Alcohol use: Not Currently Comment: Rarely Drug use: No FAMILY HISTORY: FAMILY HISTORY Problem Relation Age of Onset Allergies Mother Headache Mother Obesity Mother Hypertension Father Heart Father Obesity Sister Allergies Sister Headache Sister Diabetes Maternal Grandmother Emphysema Maternal Grandmother Breast Cancer Maternal Grandmother Emphysema Maternal Grandfather Alcohol/Drug Paternal Grandfather Headache Daughter other (Pneumonia) Daughter Headache Daughter Headache Son other (RSV) Son Psychiatry Maternal Uncle Suicide REVIEW OF SYMPTOMS: The review of systems data was entered by the nurse and reviewed by me There are no exam notes on file for this visit. PHYSICAL EXAMINATION: General: The patient is 48 year old female, well (more content not included)... [facility] 09-09-2024 History of Present illness Narrative HISTORY AND PHYSICAL Marquita Forrestill 1975 REFERRING PHYSICIAN: Brigette Martin APRN.C* CHIEF COMPLAINT: Consult (hernia) HPI: The patient is a 48 year old female with a complaint of bulge at her umbilical area. Patient had tubal ligation many many years ago noted that after that surgery she felt the pop and felt a bulge from where the previous port was located. She has recently seen a plastic surgeon since she is lost a lot of weight because she is interested in abdominoplasty. He recommended that she have her incisional defect repaired first.. The patient is being seen by me today at the request of Dr. Martin for my opinion and advice regarding Incisional hernia, without obstruction or gangrene (primary encounter diagnosis). PAST MEDICAL HISTORY Diagnosis Date Anxiety Arthritis Chest pain Depression Ear infection Migraines Obesity, Class II, BMI 35-39.9 02/20/2019 PTSD (post-traumatic stress disorder) Sciatica UTI (lower urinary tract infection) PAST SURGICAL HISTORY Procedure Laterality Date ABDOMINAL SURGERY HX APPENDECTOMY 1982 APPENDECTOMY HX BACK SURGERY HX BREAST SURGERY HX COLONOSCOPY SCREENING 02/13/2022 10 year next colonoscopy 2031 COLPOPEXY VAGINAL INTRAPERITONEAL APPROACH 01/23/2019 uterosacral ligament fixation FRACTURE SURGERY LIG/TRNSXJ FLP TUBE ABDL/VAG APPR UNI/BI 06/2007 MAMMO MAMMOGRAM 07/20/2010 OTHER lumbar spinal fusion L5-S1 PAST SURGICAL HISTORY OF 09/2008 Micro Disectomy L5S1 PAST SURGICAL HISTORY OF Left 2013 Left wrist surgery POST COLPORRHAPHY RECTOCELE W/WO PERINEORRHAPHY 01/23/2019 posterior repair REDUCTION OF LARGE BREAST 09/2006 Bilateral SKIN BIOPSY HX SLING OPER STRES INCONTINENCE 01/23/2019 TVT exact TONSILLECTOMY HX VAGINAL HYSTERECTOMY VAGINAL HYSTERECTOMY UTERUS 250 GM/< 01/23/2019 tubes and ovaries remain Current Outpatient Medications Medication Sig MAGNESIUM ORAL Take by mouth. ASHWAGANDHA EXTRACT ORAL Take by mouth once daily. rpxaleuh-gder-rlwmh-oreg-capry 100 mg-150 mg- 50 mg-150 mg cap Take by mouth once daily. Zinc Acetate, Oral, 50 mg (zinc) cap Take by mouth once daily. vitamin b complex capsule Take 1 capsule by mouth once daily. albuterol HFA (PROVENTIL HFA, VENTOLIN HFA) 90 mcg/actuation inhaler Inhale 2 Puffs as instructed four times a day as needed. gabapentin (NEURONTIN) 600 mg tablet Take 1 tablet by mouth three times a day for 180 days. traZODone (DESYREL) 150 mg tablet Take 1 tablet by mouth daily at bedtime. famotidine (PEPCID) 20 mg tablet Take 1 tablet by mouth two times a day as needed. fluticasone-salmeterol (ADVAIR DISKUS) 250-50 mcg/dose inhaler Inhale 1 Puff as instructed two times a day. Rinse and gargle mouth after use with water. iv contrast (will be provided with radiology test) CT ABD/PEL -Inject, intravenously, once for 1 dose.No IV access, insert saline lock prior to the beginning of sedation, infusion, injection of imaging exam. Discontinue saline lock post exam. If Pt. has a central line or IVAD, may access for administration according to line specific nursing protocol. Once exam is complete flush line and de-access according to line specific nursing protocol in the CT contrast administration guidelines link. enteric contrast (will be provided with radiology test) For CT ABD/PEL W IVCON Routine order Administer, As Directed One Time Only, via Oral, Rectal, both Oral and Rectal, Enteric Tube, Stoma or Indwelling Catheter, Enteric Contrast as designated per enteric contrast guidelines No current facility-administered medications for this visit. ALLERGIES: Benadryl [Diphenhydramine], Lyrica [Pregabalin], Seasonal Allergies, and Sulfa (Sulfonamide Antibiotics) PERSONAL HISTORY: Social History Tobacco Use Smoking status: Former Current packs/day: 0.00 Types: Cigarettes Quit date: 08/03/2005 Years since quittin.1 Smokeless tobacco: Never Vaping Use Vaping status: Never Used Substance Use Topics Alcohol use: Not Currently Comment: Rarely Drug use: No FAMILY HISTORY: FAMILY HISTORY Problem Relation Age of Onset Allergies Mother Headache Mother Obesity Mother Hypertension Father Heart Father Obesity Sister Allergies Sister Headache Sister Diabetes Maternal Grandmother Emphysema Maternal Grandmother Breast Cancer Maternal Grandmother Emphysema Maternal Grandfather Alcohol/Drug Paternal Grandfather Headache Daughter other (Pneumonia) Daughter Headache Daughter Headache Son other (RSV) Son Psychiatry Maternal Uncle Suicide REVIEW OF SYMPTOMS: The review of systems data was entered by the nurse and reviewed by me There are no exam notes on file for this visit. PHYSICAL EXAMINATION: General: The patient is 48 year old female, well nourished, well hydrated in no acute distress. The patient is oriented to time, place, and person. VITALS: Blood pressure 120/78, pulse 88, temperature 36.6 C (97.9 F), height 162.6 cm (5' 4), weight 84.2 kg (185 lb 9.6 oz), last menstrual period 01/03/2019, SpO2 97%. HEENT: Normal cephalic, ataumatic, pupils are equally round, sclera are anicteric, mucous membranes are moist, oropharynx is clear. Neck has no masses, asymmetry or lymphadenopathy. Thyroid is unremarkable. Respiratory: Clear to auscultation and percussion. Normal respiratory excursion and pattern. Cardiac: Examination is regular rate and rhythm. Abdominal exam: Soft, nontender, with no palpable masses. No hepatosplenomegaly. Palpable hernias felt at her previous incision at her umbilicus area. This area is extremely weak in addition there is a small diastases recti identified. Rectal exam: exam deferred Extremities: no clubbing, cyanosis or edema. No adenopathy. Other: LABORATORY VALUES: As Noted RADIOLOGIC STUDIES: As Noted Assessment IMPRESSION: Incisional hernia, without obstruction or gangrene (primary encounter diagnosis) Diastasis recti PLAN: Prior to having any incisional hernia repair done I think we need to get a CAT scan of her abdomen and pelvis to assess if there is more than 1 hernia in this area as well as how thin her fascia is. At some point she is going to have to be seen in more and will likely need to have a robotic incisional hernia repair with any significant coverage in her mesh and the defect itself so that it will not come back. I do not think doing this in an open fashion is going to be in her best interest Diagnoses: (K43.2) Incisional hernia, without obstruction or gangrene (primary encounter diagnosis) My findings have been communicated to Dr. Martin via shared medical record. This note will be forwarded to Dr. Brigette Martin APRN.CAREER SERVICES OFFICER. Return to Clinic: The patient is instructed to follow-up with me after the testing has been completed. Leora Ha III, MD REVIEW OF SYSTEMS: General: The patient denies fatigue, NOTES weight loss, denies weight gain, denies feeling hot, and denies feelings of cold. Eyes: The patient denies glaucoma, denies eye injury/surgery, does not wear glasses or contacts. Ear/Nose/Throat: The patient NOTES allergies, denies hayfever, denies ear infections, and denies bloody noses. Cardiovascular: The patient denies chest pain, denies heart disease, denies high blood pressure,denies cardiac stent, denies prior heart attack, denies irregular heart beat, denies high cholesterol, denies poor circulation, denies heart failure, other cardiac issues, denies claudication, denies cold feet, denies peripheral arterial stent. Respiratory: The patient denies tuberculosis, denies pneumonia, denies frequent cough, denies pulmonary embolism, denies shortness of breath, and denies coughing up blood. Gastrointestinal: The patient denies difficulty swallowing, denies acid reflux, denies ulcers, denies vomiting, denies jaundice/hepatitis, denies gallbladder problems, denies black or tarry stools, denies hemorrhoids, denies bleeding from rectum, denies diverticulitis, denies constipation, denies diarrhea, denies loss of stool control, and NOTES hernias. Kidney/Bladder: The patient denies kidney stones, denies urine infections, and denies bloody urine. Skin: The patient denies a history of skin cancer, NOTES bleeding/changing moles, and denies a history of skin rash. Neurologic: The patient denies a history of epilepsy/convulsions, NOTES headaches, denies head/spinal injuries, and denies stroke/TIA. Psychiatric: The patient denies psychiatric medications, denies depression, and denies voices, denies substance abuse. Endocrine: The patient denies thyroid disorders, denies diabetes, and denies hormonal problems. Hematologic: The patient denies a history of bruising, denies bleeding, and denies anemia, denies blood clots. Infections: The patient denies a history of measles and mumps, denies rheumatic fever, and denies sexually transmitted diseases. Musculoskeletal: The patient NOTES back pain/injury, NOTES back problems, denies sciatica, NOTES knee/foot trouble, denies arthritis, or denies gout. When was patient's last Mammogram screening? September 2023 Last Colonoscopy: 2022 Eliezer Garcia RN documented in this encounter [facility] 09-09-2024 Note HNO ID: [id number] Author: ELIEZER GARCIA RN Service: ? Author Type: Registered Nurse Type: Progress Notes Filed: 09/09/2024 10:54 Note Text: REVIEW OF SYSTEMS: General: The patient denies fatigue, NOTES weight loss, denies weight gain, denies feeling hot, and denies feelings of cold. Eyes: The patient denies glaucoma, denies eye injury/surgery, does not wear glasses or contacts. Ear/Nose/Throat: The patient NOTES allergies, denies hayfever, denies ear infections, and denies bloody noses. Cardiovascular: The patient denies chest pain, denies heart disease, denies high blood pressure,denies cardiac stent, denies prior heart attack, denies irregular heart beat, denies high cholesterol, denies poor circulation, denies heart failure, other cardiac issues, denies claudication, denies cold feet, denies peripheral arterial stent. Respiratory: The patient denies tuberculosis, denies pneumonia, denies frequent cough, denies pulmonary embolism, denies shortness of breath, and denies coughing up blood. Gastrointestinal: The patient denies difficulty swallowing, denies acid reflux, denies ulcers, denies vomiting, denies jaundice/hepatitis, denies gallbladder problems, denies black or tarry stools, denies hemorrhoids, denies bleeding from rectum, denies diverticulitis, denies constipation, denies diarrhea, denies loss of stool control, and NOTES hernias. Kidney/Bladder: The patient denies kidney stones, denies urine infections, and denies bloody urine. Skin: The patient denies a history of skin cancer, NOTES bleeding/changing moles, and denies a history of skin rash. Neurologic: The patient denies a history of epilepsy/convulsions, NOTES headaches, denies head/spinal injuries, and denies stroke/TIA. Psychiatric: The patient denies psychiatric medications, denies depression, and denies voices, denies substance abuse. Endocrine: The patient denies thyroid disorders, denies diabetes, and denies hormonal problems. Hematologic: The patient denies a history of bruising, denies bleeding, and denies anemia, denies blood clots. Infections: The patient denies a history of measles and mumps, denies rheumatic fever, and denies sexually transmitted diseases. Musculoskeletal: The patient NOTES back pain/injury, NOTES back problems, denies sciatica, NOTES knee/foot trouble, denies arthritis, or denies gout. When was patient's last Mammogram screening? September 2023 Last Colonoscopy: 2022 Eliezer Garcia RN [facility] 09-04-2024 Note HNO ID: [id number] Author: Karely PLASENCIA MD Service: ? Author Type: Physician Type: Progress Notes Filed: 09/04/2024 12:30 Note Text: Ms. Marquita Omalley is a 48 year old, female presents for consultation for body contouring. The main complaint is (skin laxity and abdominal wall protrusion. Area of concern - abdomen Marquita has 3 children with ages - 21, 18, 17. Plans of having children in the immediate future: NO. Prior surgery in the Abdomen: Yes. Leads an active lifestyle: Yes Prior weight loss: Yes. Prior bariatric surgery; Yes Amount of weight loss: 90 lbs The patient's bariatric surgeon Gayle. Last f/u: 2024. Social History Tobacco Use Smoking status: Former Current packs/day: 0.00 Types: Cigarettes Quit date: 08/03/2005 Years since quittin.1 Smokeless tobacco: Never Vaping Use Vaping status: Never Used Substance Use Topics Alcohol use: Not Currently Comment: Rarely Drug use: No Smoking history: No PAST MEDICAL HISTORY Diagnosis Date Anxiety Arthritis Chest pain Depression Ear infection Migraines Obesity, Class II, BMI 35-39.9 02/20/2019 PTSD (post-traumatic stress disorder) Sciatica UTI (lower urinary tract infection) PAST SURGICAL HISTORY Procedure Laterality Date ABDOMINAL SURGERY HX APPENDECTOMY 1982 APPENDECTOMY HX BACK SURGERY HX BREAST SURGERY HX COLONOSCOPY SCREENING 02/13/2022 10 year next colonoscopy 2031 COLPOPEXY VAGINAL INTRAPERITONEAL APPROACH 01/23/2019 uterosacral ligament fixation FRACTURE SURGERY LIG/TRNSXJ FLP TUBE ABDL/VAG APPR UNI/BI 06/2007 MAMMO MAMMOGRAM 07/20/2010 OTHER lumbar spinal fusion L5-S1 PAST SURGICAL HISTORY OF 09/2008 Micro Disectomy L5S1 PAST SURGICAL HISTORY OF Left 2013 Left wrist surgery POST COLPORRHAPHY RECTOCELE W/WO PERINEORRHAPHY 01/23/2019 posterior repair REDUCTION OF LARGE BREAST 09/2006 Bilateral SKIN BIOPSY HX SLING OPER STRES INCONTINENCE 01/23/2019 TVT exact TONSILLECTOMY HX VAGINAL HYSTERECTOMY VAGINAL HYSTERECTOMY UTERUS 250 GM/< 01/23/2019 tubes and ovaries remain Exam: LMP 01/03/2019 Severe- musculo-fascial laxity Reducible umbilical hernia Severe skin excess (Z98.84) 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 I noted that the main cause of the protrusion is musculo-fascial laxity and intra-abdominal contents pushing out- there is a limit on how much this could be corrected and she acknowledged that. I discussed the risks and complications of the procedure. I discussed the incisions to be used and the anticipated scar. Discussed the anesthesia to be used: General. Discussed the anticipated postop course. Recommendation: !- address her umbilical hernia with a general surgeon first 2- Extended abdominoplasty; general; outpatient J Len Plasencia MD' [facility] 09-01-2024 Note HNO ID: [id number] Author: LISA RODRÍGUEZ PA-C Service: ? Author Type: Physician Quick Mixer Operator Type: Progress Notes Filed: 09/01/2024 15:10 Note Text: Large Joint Arthro/Inj: L knee joint 09/01/2024 3:10 PM The procedure site was prepped in the usual sterile fashion. Site: L knee joint Medications: 6 mg betamethasone acetate-betamethasone sodium phosphate 6 mg/mL Anesthetics: 5 mL lidocaine (PF) 10 mg/mL (1 %) Outcome: Tolerated well, no immediate complications Post-injection instructions were reviewed with the patient and the patient voiced understanding of these instructions. Informed Consent Consent Obtained: Verbal [place] Protocol A moment to CARE was completed. SIGN IN Sign in communication not applicable due to emergent procedure. Personnel directly involved with the procedure wore the appropriate PPE. Special Equipment: N/A Patient/Surrogate Stated/Verified: Patient name, Date of , Relevant allergies and Intended procedure TIME OUT Relevant labs, photos, and/or imaging studies have been reviewed. Consent documented and matches the intended procedure. Correct side/site marked and visible. Medications required for procedure verified. No fire risk assessment and interventions applicable. No implant(s) inserted. SIGN OUT No specimen collected. All instruments, equipment, possible retained foreign bodies accounted for. [facility] 09-01-2024 History of Present illness Narrative Associated Order(s): Large Joint Arthro/Inj: L knee joint Post-Procedure Diagnose(s): Acute pain of left knee Large Joint Arthro/Inj: L knee joint 09/01/2024 3:10 PM The procedure site was prepped in the usual sterile fashion. Site: L knee joint Medications: 6 mg betamethasone acetate-betamethasone sodium phosphate 6 mg/mL Anesthetics: 5 mL lidocaine (PF) 10 mg/mL (1 %) Outcome: Tolerated well, no immediate complications Post-injection instructions were reviewed with the patient and the patient voiced understanding of these instructions. Informed Consent Consent Obtained: Verbal [place] Protocol A moment to CARE was completed. SIGN IN Sign in communication not applicable due to emergent procedure. Personnel directly involved with the procedure wore the appropriate PPE. Special Equipment: N/A Patient/Surrogate Stated/Verified: Patient name, Date of , Relevant allergies and Intended procedure TIME OUT Relevant labs, photos, and/or imaging studies have been reviewed. Consent documented and matches the intended procedure. Correct side/site marked and visible. Medications required for procedure verified. No fire risk assessment and interventions applicable. No implant(s) inserted. SIGN OUT No specimen collected. All instruments, equipment, possible retained foreign bodies accounted for. documented in this encounter [facility] 07-13-2024 Note HNO ID: [id number] Author: JASON SCRUGGS MD Service: ? Author Type: Physician Type: Progress Notes Filed: 07/13/2024 17:24 Note Text: Subjective Marquita Omalley is a 48-year-old W female presenting for evaluation of excess abdominal skin following significant weight loss post-gastric sleeve surgery. She underwent gastric sleeve surgery on 05/11/2023 and has since lost 90 lbs. She is seeking a referral to a plastic surgeon for the removal of excess abdominal skin. She reports being informed that insurance coverage for the procedure may require documentation of a medical necessity, such as skin breakdown. She denies any current skin breakdown and attributes this to her meticulous efforts to keep the area clean and dry. Marquita also mentions having diastasis recti, which she believes contributes to the appearance of her abdomen. She has been advised against performing crunches due to the risk of exacerbating the diastasis. She engages in regular walking for exercise but has not found yoga to be suitable for her. She expresses a desire to explore other forms of exercise, such as swimming, but notes that the nearest indoor pool is 40 minutes away from her residence in [place]. ROS: Constitutional: (+) weight loss Musculoskeletal: (+) diastasis Skin: (-) skin breakdown Objective Last menstrual period 01/03/2019. General: pleasant overweight WF in no acute distress. Abd: Mild pannus observed. No skin breakdown observed along flank and lower abdomen. Diastasis recti observed ASSESSMENT/PLAN: 1. Rash and nonspecific skin eruption (R21) 2. Intertrigo (L30.4) - No evidence of skin breakdown or intertrigo observed on examination. - Advised patient to continue maintaining good hygiene and keeping the skin clean and dry. 3. 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 - Discussed potential referral to a plastic surgeon for excess skin removal; however, no medical necessity for insurance coverage observed at this time. 4. Obesity, Class I, BMI 30.0-34.9 (see actual BMI) (E66.811) - Encouraged patient to engage in muscle toning exercises to improve abdominal wall strength and appearance. - Recommended consulting a personal fitness trainer for tailored exercise regimen. - Discussed potential benefits of swimming as a low-impact exercise option; advised patient to explore local indoor pool facilities. Jason Scruggs MD Family Med/dermatology consistent with [facility]?s Notice of Privacy Practices. [facility] 07-13-2024 History of Present illness Narrative Subjective Marquita Omalley is a 48-year-old W female presenting for evaluation of excess abdominal skin following significant weight loss post-gastric sleeve surgery. She underwent gastric sleeve surgery on 05/11/2023 and has since lost 90 lbs. She is seeking a referral to a plastic surgeon for the removal of excess abdominal skin. She reports being informed that insurance coverage for the procedure may require documentation of a medical necessity, such as skin breakdown. She denies any current skin breakdown and attributes this to her meticulous efforts to keep the area clean and dry. Marquita also mentions having diastasis recti, which she believes contributes to the appearance of her abdomen. She has been advised against performing crunches due to the risk of exacerbating the diastasis. She engages in regular walking for exercise but has not found yoga to be suitable for her. She expresses a desire to explore other forms of exercise, such as swimming, but notes that the nearest indoor pool is 40 minutes away from her residence in [place]. ROS: Constitutional: (+) weight loss Musculoskeletal: (+) diastasis Skin: (-) skin breakdown Objective Last menstrual period 01/03/2019. General: pleasant overweight WF in no acute distress. Abd: Mild pannus observed. No skin breakdown observed along flank and lower abdomen. Diastasis recti observed ASSESSMENT/PLAN: 1. Rash and nonspecific skin eruption (R21) 2. Intertrigo (L30.4) - No evidence of skin breakdown or intertrigo observed on examination. - Advised patient to continue maintaining good hygiene and keeping the skin clean and dry. 3. 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 - Discussed potential referral to a plastic surgeon for excess skin removal; however, no medical necessity for insurance coverage observed at this time. 4. Obesity, Class I, BMI 30.0-34.9 (see actual BMI) (E66.811) - Encouraged patient to engage in muscle toning exercises to improve abdominal wall strength and appearance. - Recommended consulting a personal fitness trainer for tailored exercise regimen. - Discussed potential benefits of swimming as a low-impact exercise option; advised patient to explore local indoor pool facilities. Jason Scruggs MD Family Med/dermatology consistent with [facility] s Notice of Privacy Practices. documented in this encounter [facility] 06-11-2024 Instructions Brigette Martin APRN.CNP - 06/11/2024 10:07 AM EST Start the sudafed. Continue the flonase. Schedule vestibular therapy. Let us know if no better/worsening. documented in this encounter [facility] 06-11-2024 Note HNO ID: [id number] Author: BRIGETTE MARTIN APRN.RENETTA Service: ? Author Type: Nurse Practitioner Type: Progress Notes Filed: 06/11/2024 18:05 Note Text: This is a 48 year old female who presents today with: Patient presents with: ER F/U: [facility] ER 06/07 dx:vertigo; meclizine not working; using flonase and antihistamines; has been doing regina at home without relief HISTORY OF PRESENT ILLNESS: Marquita Omalley is a 48 year old female. Patient presents with: ER F/U: [facility] ER 06/07 dx:vertigo; meclizine not working; using flonase and antihistamines; has been doing regina at home without relief Pt presents today for ER follow-up. Was in the ER on 06/07. Refers she was having extreme dizziness. She was working at her computer and had a sudden onset of dizziness. BP was 98/50. [place] laid down and she felt like she was drunk. When she sat up, everything started spinning. Checked sugar, and it was okay. Vomited X 1. She had a headache for 5 days prior to symptoms. Taking tylenol for headache. Given a dose of meclizine in the ER and reports that it did not do anything. In the emergency room, she was given IV fluids, meclizine, and Zofran. Her CBC showed no leukocytosis. Hemoglobin was 14.3. Platelet count was 219. Patient's sodium was 138. Potassium was 3.8 her creatinine was normal at 0.6. Her urinalysis showed no evidence of infection. CT of her head and brain without contrast showed no acute findings. Chest x-ray showed no acute cardiopulmonary processes. Revealed sinus bradycardia. Had PT yesterday. Advised that could get vestibular therapy. Symptoms are improved from onset. However a little worse today as compared to the last could of days. Did not do eply this morning. Continues with headache. PAST MEDICAL HISTORY: PAST MEDICAL HISTORY Diagnosis Date Anxiety Arthritis Chest pain Depression Ear infection Migraines Obesity, Class II, BMI 35-39.9 02/20/2019 PTSD (post-traumatic stress disorder) Sciatica UTI (lower urinary tract infection) PAST SURGICAL HISTORY Procedure Laterality Date ABDOMINAL SURGERY HX APPENDECTOMY 1982 APPENDECTOMY HX BACK SURGERY HX BREAST SURGERY HX COLONOSCOPY SCREENING 02/13/2022 10 year next colonoscopy 2031 COLPOPEXY VAGINAL INTRAPERITONEAL APPROACH 01/23/2019 uterosacral ligament fixation FRACTURE SURGERY LIG/TRNSXJ FLP TUBE ABDL/VAG APPR UNI/BI 06/2007 MAMMO MAMMOGRAM 07/20/2010 OTHER lumbar spinal fusion L5-S1 PAST SURGICAL HISTORY OF 09/2008 Micro Disectomy L5S1 PAST SURGICAL HISTORY OF Left 2013 Left wrist surgery POST COLPORRHAPHY RECTOCELE W/WO PERINEORRHAPHY 01/23/2019 posterior repair REDUCTION OF LARGE BREAST 09/2006 Bilateral SKIN BIOPSY HX SLING OPER STRES INCONTINENCE 01/23/2019 TVT exact TONSILLECTOMY HX VAGINAL HYSTERECTOMY VAGINAL HYSTERECTOMY UTERUS 250 GM/< 01/23/2019 tubes and ovaries remain ALLERGIES Benadryl [Diphenhydramine], Lyrica [Pregabalin], Seasonal Allergies, and Sulfa (Sulfonamide Antibiotics) MEDICATIONS Current Outpatient Medications Medication Sig MAGNESIUM ORAL Take by mouth. ASHWAGANDHA EXTRACT ORAL Take by mouth once daily. etcxices-lfnw-jpjku-oreg-capry 100 mg-150 mg- 50 mg-150 mg cap Take by mouth once daily. Zinc Acetate, Oral, 50 mg (zinc) cap Take by mouth once daily. vitamin b complex capsule Take 1 capsule by mouth once daily. albuterol HFA (PROVENTIL HFA, VENTOLIN HFA) 90 mcg/actuation inhaler Inhale 2 Puffs as instructed four times a day as needed. gabapentin (NEURONTIN) 600 mg tablet Take 1 tablet by mouth three times a day for 180 days. traZODone (DESYREL) 150 mg tablet Take 1 tablet by mouth daily at bedtime. famotidine (PEPCID) 20 mg tablet Take 1 tablet by mouth two times a day as needed. fluticasone-salmeterol (ADVAIR DISKUS) 250-50 mcg/dose inhaler Inhale 1 Puff as instructed two times a day. Rinse and gargle mouth after use with water. No current facility-administered medications for this visit. FAMILY HISTORY Problem Relation Age of Onset Allergies Mother Headache Mother Obesity Mother Hypertension Father Heart Father Obesity Sister Allergies Sister Headache Sister Diabetes Maternal Grandmother Emphysema Maternal Grandmother Breast Cancer Maternal Grandmother Emphysema Maternal Grandfather Alcohol/Drug Paternal Grandfather Headache Daughter other (Pneumonia) Daughter Headache Daughter Headache Son other (RSV) Son Psychiatry Maternal Uncle Suicide Social History Tobacco Use Smoking status: Former Current packs/day: 0.00 Types: Cigarettes Quit date: 08/03/2005 Years since quittin.8 Smokeless tobacco: Never Vaping Use Vaping status: Never Used Substance Use Topics Alcohol use: Not Currently Comment: Rarely Drug use: No EXAM: BP 128/84 Pulse 71 Resp 16 LMP 01/03/2019 (Exact Date) SpO2 98% PHYSICAL EXAM: General Appearance: Well appearing, alert, in no acu (more content not included)... [facility] 06-11-2024 History of Present illness Narrative This is a 48 year old female who presents today with: Patient presents with: ER F/U: [facility] ER 06/07 dx:vertigo; meclizine not working; using flonase and antihistamines; has been doing regina at home without relief HISTORY OF PRESENT ILLNESS: Marquita Omalley is a 48 year old female. Patient presents with: ER F/U: [facility] ER 06/07 dx:vertigo; meclizine not working; using flonase and antihistamines; has been doing regina at home without relief Pt presents today for ER follow-up. Was in the ER on 06/07. Refers she was having extreme dizziness. She was working at her computer and had a sudden onset of dizziness. BP was 98/50. [place] laid down and she felt like she was drunk. When she sat up, everything started spinning. Checked sugar, and it was okay. Vomited X 1. She had a headache for 5 days prior to symptoms. Taking tylenol for headache. Given a dose of meclizine in the ER and reports that it did not do anything. In the emergency room, she was given IV fluids, meclizine, and Zofran. Her CBC showed no leukocytosis. Hemoglobin was 14.3. Platelet count was 219. Patient's sodium was 138. Potassium was 3.8 her creatinine was normal at 0.6. Her urinalysis showed no evidence of infection. CT of her head and brain without contrast showed no acute findings. Chest x-ray showed no acute cardiopulmonary processes. Revealed sinus bradycardia. Had PT yesterday. Advised that could get vestibular therapy. Symptoms are improved from onset. However a little worse today as compared to the last could of days. Did not do eply this morning. Continues with headache. PAST MEDICAL HISTORY: PAST MEDICAL HISTORY Diagnosis Date Anxiety Arthritis Chest pain Depression Ear infection Migraines Obesity, Class II, BMI 35-39.9 02/20/2019 PTSD (post-traumatic stress disorder) Sciatica UTI (lower urinary tract infection) PAST SURGICAL HISTORY Procedure Laterality Date ABDOMINAL SURGERY HX APPENDECTOMY 1982 APPENDECTOMY HX BACK SURGERY HX BREAST SURGERY HX COLONOSCOPY SCREENING 02/13/2022 10 year next colonoscopy 2031 COLPOPEXY VAGINAL INTRAPERITONEAL APPROACH 01/23/2019 uterosacral ligament fixation FRACTURE SURGERY LIG/TRNSXJ FLP TUBE ABDL/VAG APPR UNI/BI 06/2007 MAMMO MAMMOGRAM 07/20/2010 OTHER lumbar spinal fusion L5-S1 PAST SURGICAL HISTORY OF 09/2008 Micro Disectomy L5S1 PAST SURGICAL HISTORY OF Left 2013 Left wrist surgery POST COLPORRHAPHY RECTOCELE W/WO PERINEORRHAPHY 01/23/2019 posterior repair REDUCTION OF LARGE BREAST 09/2006 Bilateral SKIN BIOPSY HX SLING OPER STRES INCONTINENCE 01/23/2019 TVT exact TONSILLECTOMY HX VAGINAL HYSTERECTOMY VAGINAL HYSTERECTOMY UTERUS 250 GM/< 01/23/2019 tubes and ovaries remain ALLERGIES Benadryl [Diphenhydramine], Lyrica [Pregabalin], Seasonal Allergies, and Sulfa (Sulfonamide Antibiotics) MEDICATIONS Current Outpatient Medications Medication Sig MAGNESIUM ORAL Take by mouth. ASHWAGANDHA EXTRACT ORAL Take by mouth once daily. ovmjszaj-hxjx-icpzj-oreg-capry 100 mg-150 mg- 50 mg-150 mg cap Take by mouth once daily. Zinc Acetate, Oral, 50 mg (zinc) cap Take by mouth once daily. vitamin b complex capsule Take 1 capsule by mouth once daily. albuterol HFA (PROVENTIL HFA, VENTOLIN HFA) 90 mcg/actuation inhaler Inhale 2 Puffs as instructed four times a day as needed. gabapentin (NEURONTIN) 600 mg tablet Take 1 tablet by mouth three times a day for 180 days. traZODone (DESYREL) 150 mg tablet Take 1 tablet by mouth daily at bedtime. famotidine (PEPCID) 20 mg tablet Take 1 tablet by mouth two times a day as needed. fluticasone-salmeterol (ADVAIR DISKUS) 250-50 mcg/dose inhaler Inhale 1 Puff as instructed two times a day. Rinse and gargle mouth after use with water. No current facility-administered medications for this visit. FAMILY HISTORY Problem Relation Age of Onset Allergies Mother Headache Mother Obesity Mother Hypertension Father Heart Father Obesity Sister Allergies Sister Headache Sister Diabetes Maternal Grandmother Emphysema Maternal Grandmother Breast Cancer Maternal Grandmother Emphysema Maternal Grandfather Alcohol/Drug Paternal Grandfather Headache Daughter other (Pneumonia) Daughter Headache Daughter Headache Son other (RSV) Son Psychiatry Maternal Uncle Suicide Social History Tobacco Use Smoking status: Former Current packs/day: 0.00 Types: Cigarettes Quit date: 08/03/2005 Years since quittin.8 Smokeless tobacco: Never Vaping Use Vaping status: Never Used Substance Use Topics Alcohol use: Not Currently Comment: Rarely Drug use: No EXAM: BP 128/84 Pulse 71 Resp 16 LMP 01/03/2019 (Exact Date) SpO2 98% PHYSICAL EXAM: General Appearance: Well appearing, alert, in no acute distress, well-hydrated, well nourished.. Skin: Skin color, texture, turgor normal, no suspicious rashes or lesions. Head: Normocephalic, no masses, lesions, tenderness or abnormalities. Eyes: Anicteric sclera. Pupils are equally round and reactive to light. Extraocular movements are intact. Ears: External ears normal, canals clear. + air/fluid. Oropharynx: Lips, mucosa, and tongue normal, teeth and gums normal, oropharynx normal. Neck: Supple, no adenopathy; Lungs: Lungs clear to auscultation. No wheezing, rhonchi, rales.. Heart: RRR without murmur, gallop, or rubs. No ectopy. Extremities: No deformities, edema, skin discoloration, clubbing or cyanosis. Good capillary refill. . Neurologic: Gait normal. Unable to illicit nystagmus with Alfa-Hallpike maneuver. ASSESSMENT/PLAN: 1. Vertigo - ICD9: 780.4, ICD10: R42 (primary diagnosis) Symptoms are improving. She has middle ear effusion -- continue flonase and start sudafed. Consult for vestibular therapy. Continue eply. Meclizine was unhelpful. Discussed valium; however patient does not want any sedating medication. - CONSULT TO PHYSICAL THERAPY 2. Headache, unspecified headache type - ICD9: 784.0, ICD10: R51.9 Continue with headache -- agreeable to toradol. - KETOROLAC 60 MG/2 ML INTRAMUSCULAR SOLUTION Discussed treatment plan and patient voices understanding. Patient's questions answered appropriately. Medications and potential side effects were discussed and patient voices understanding. Return to the office as scheduled or as needed for worsening/no improvement. Brigette Martin APRN.CAREER SERVICES OFFICER documented in this encounter [facility] 06-10-2024 Note HNO ID: [id number] Author: HEATHER DE LEON PT Service: ? Author Type: Physical Therapist Type: Progress Notes Filed: 06/10/2024 08:49 Note Text: Episode Visit Count: 2 Therapist That Will Accept/Oversee The Plan Of Care: Heather DeL eon Start of Care Date: 05/26/24 Onset Date: 05/03/24 Plan of Care Certification Date: 05/26/24 Next Certification Due Date: 06/30/24 REHABILITATION AND SPORTS THERAPY PHYSICAL THERAPY TREATMENT NOTE ASSESSMENT: Marquita Omalley tolerated the session with new complaints of dizziness that onset Sunday and therefore exercises were completed in the seated position. Pt. Has scheduled an ED f/u with a PCP to get an order for vestibular PT. . She demonstrated difficulty with LLE SLR due to hip pain and this was modified back to SAQ using a ball. Pt. Requires cues to keep leg on the ball to avoid hip flexion substitution. The patient will continue to benefit from ongoing skilled physical therapy to progress toward set goals. PLAN FOR NEXT VISIT: pt. to schedule vestibular PT eval and get an order. Continue progressing the knee strengthening in positions as tolerated by the knee and pt. vertigo symptoms SUBJECTIVE: Pt. was in the ED Sunday for vertigo with bending forward. Pt. has tried doing the regina manuever. She has not yet f/u with her PCP and does not have a vestibular order. Was not able to do her HEP much due to vertigo with looking left, down, and bending down. Onset Sunday and continuous symptoms until Sunday. Her knee has been good for the last few days. She had much difficuly with bending her knee. Pt. mentions recent labs indicated elevated white blood cell count. Patient Goals: reduce L knee pain Pain: Pain Pain Level: 2 Pain Location: Knee - Left Description: Aching Post Treatment Pain Post Treatment Pain Level: 2 Post Treatment Pain Location: Knee - Left Post Treatment Pain Description: Aching OBJECTIVE MEASURES WITH LEVEL OF FUNCTION: TREATMENT: Therapeutic Exercise: 1: scifit stepper 5 min, level 2, 5 min, seat 13, 1:1 throughout, subjective collected 2: supine quad set 2x5, 10 sec hold 3: supine SLR with slow tempo 1x10 L dc due to hip pain 4: SAQ 1x10, L slow tempo 5: SL hip abd LLE 2x10 6: seated LAQ 2x10 each LE Skilled Intervention: Patient was educated in proper exercise technique and purpose for exercises. Skilled judgment was used in selection of appropriate interventions. Provided written instruction for home exercise program to facilitate proper performance and compliance. Correct performance of therapeutic exercises was facilitated with verbal, visual, and tactile cuing. Educated patient on rationale for performing exercises in regards to decreasing fatigue , increase ease of ADL, and ROM and function . Patient education as noted. Self-Chcf Management: 1: discussed that it is possible that pt. had vestibular neuritis or BPPV - advised pt. to request for a vestibular order 2: discussed that PT would need an order before treating vestibular problems 3: advised seated actvities to avoid falling as necessary. 4: advised using a wedge to elevated the head when pt. is completing knee exercises on her side or supine Skilled Intervention: Skilled judgment in the selection of proper modification for activity of daily living/home management based on clinical presentation, deficits, and needs. Provided written instruction for activities of daily living techniques to facilitate proper performance and compliance. Reviewed patient specific diagnosis in relation to activities of daily living/home management. Activity progression based on professional judgement. Moderate verbal cues for maintaining neutral spine alignment. Provided written instruction for home program to facilitate proper performance and compliance. Correct performance of home program was facilitated with verbal, visual, and tactile cueing. Billing Therapeutic Exercise Treatment Minutes: 24 Self-Care/Home Management Treatment Minutes: 15 Total Session Time (minutes): 39 Session Start Time : 808 Session Stop Time : 847 Heather De Leon, PT [facility] 06-10-2024 History of Present illness Narrative Episode Visit Count: 2 Therapist That Will Accept/Oversee The Plan Of Care: Heather De Leon Start of Care Date: 05/26/24 Onset Date: 05/03/24 Plan of Care Certification Date: 05/26/24 Next Certification Due Date: 06/30/24 REHABILITATION AND SPORTS THERAPY PHYSICAL THERAPY TREATMENT NOTE ASSESSMENT: Marquita Omalley tolerated the session with new complaints of dizziness that onset Sunday and therefore exercises were completed in the seated position. Pt. Has scheduled an ED f/u with a PCP to get an order for vestibular PT. . She demonstrated difficulty with LLE SLR due to hip pain and this was modified back to SAQ using a ball. Pt. Requires cues to keep leg on the ball to avoid hip flexion substitution. The patient will continue to benefit from ongoing skilled physical therapy to progress toward set goals. PLAN FOR NEXT VISIT: pt. to schedule vestibular PT eval and get an order. Continue progressing the knee strengthening in positions as tolerated by the knee and pt. vertigo symptoms SUBJECTIVE: Pt. was in the ED Sunday for vertigo with bending forward. Pt. has tried doing the regina manuever. She has not yet f/u with her PCP and does not have a vestibular order. Was not able to do her HEP much due to vertigo with looking left, down, and bending down. Onset Sunday and continuous symptoms until Sunday. Her knee has been good for the last few days. She had much difficuly with bending her knee. Pt. mentions recent labs indicated elevated white blood cell count. Patient Goals: reduce L knee pain Pain: Pain Pain Level: 2 Pain Location: Knee - Left Description: Aching Post Treatment Pain Post Treatment Pain Level: 2 Post Treatment Pain Location: Knee - Left Post Treatment Pain Description: Aching OBJECTIVE MEASURES WITH LEVEL OF FUNCTION: TREATMENT: Therapeutic Exercise: 1: scifit stepper 5 min, level 2, 5 min, seat 13, 1:1 throughout, subjective collected 2: supine quad set 2x5, 10 sec hold 3: supine SLR with slow tempo 1x10 L dc due to hip pain 4: SAQ 1x10, L slow tempo 5: SL hip abd LLE 2x10 6: seated LAQ 2x10 each LE Skilled Intervention: Patient was educated in proper exercise technique and purpose for exercises. Skilled judgment was used in selection of appropriate interventions. Provided written instruction for home exercise program to facilitate proper performance and compliance. Correct performance of therapeutic exercises was facilitated with verbal, visual, and tactile cuing. Educated patient on rationale for performing exercises in regards to decreasing fatigue , increase ease of ADL, and ROM and function . Patient education as noted. Self-Chcf Management: 1: discussed that it is possible that pt. had vestibular neuritis or BPPV - advised pt. to request for a vestibular order 2: discussed that PT would need an order before treating vestibular problems 3: advised seated actvities to avoid falling as necessary. 4: advised using a wedge to elevated the head when pt. is completing knee exercises on her side or supine Skilled Intervention: Skilled judgment in the selection of proper modification for activity of daily living/home management based on clinical presentation, deficits, and needs. Provided written instruction for activities of daily living techniques to facilitate proper performance and compliance. Reviewed patient specific diagnosis in relation to activities of daily living/home management. Activity progression based on professional judgement. Moderate verbal cues for maintaining neutral spine alignment. Provided written instruction for home program to facilitate proper performance and compliance. Correct performance of home program was facilitated with verbal, visual, and tactile cueing. Billing Therapeutic Exercise Treatment Minutes: 24 Self-Care/Home Management Treatment Minutes: 15 Total Session Time (minutes): 39 Session Start Time : 808 Session Stop Time : 847 Heather De Leon PT documented in this encounter [facility] 06-07-2024 Note HNO ID: [id number] Author: HILLARY WARD APRN.RENETTA Service: ? Author Type: Nurse Practitioner Type: Progress Notes Filed: 06/07/2024 11:08 Note Text: Patient came in with complaints of severe dizziness. Patient says it started yesterday. Patient says is not getting any better. Says this is never happened before. Patient says she can hardly even walk without feeling like she is going to fall. Patient denies any other symptoms. At this time patient is being referred to the emergency room for an evaluation. Patient said at home her blood pressure was extremely low. Blood pressure was normal here. Did states she could be dehydrated. Patient agreeable will take her self. Patient wants to take her so she does not want to squad called. [facility] 05-29-2024 Telephone encounter Note Notified via [employer]. Alanna Hummel MA [facility] 05-29-2024 Miscellaneous Notes Notified via [employer]. Alanna Hummel MA Repeat CBC was ordered. Candy, Can you please help patient get scheduled as per my encounter today? Consult to plastic surgery, and also, follow up with Bariatric Medical team in approximately October. TY documented in this encounter [facility] 05-29-2024 Telephone encounter Note Repeat CBC was ordered. [facility] 05-26-2024 History of Present illness Narrative Program_ID:[id number] Access Code: [email or web address] URL: [email or web address] Date: 05-26-2024 Prepared By: Heather De Leon Program Notes Exercises - Quad Setting and Stretching - 2-3 x daily - 7 x weekly - 2 sets - 5 reps - Supine Short Arc Quad - 1-2 x daily - 7 x weekly - 3 sets - 8 reps - Seated Long Arc Quad - 1-2 x daily - 7 x weekly - 2 sets - 5 reps - Sidelying Hip Abduction - 1 x daily - 7 x weekly - 3 sets - 8 reps - Gastroc Stretch on Wall - 1 x daily - 7 x weekly - 3 sets - reps Episode Visit Count: 1 Therapist That Will Accept/Oversee The Plan Of Care: Heather De Leon Start of Care Date: 05/26/24 Onset Date: 05/03/24 Plan of Care Certification Date: 05/26/24 Next Certification Due Date: 06/30/24 Patient Identified by Name and Date of : Yes REHABILITATION AND SPORTS THERAPY PHYSICAL THERAPY EVALUATION PLAN OF CARE: Assessment: Marquita Omalley presents with diagnosis of acute pain of left knee that interferes with stair negotiation, sitting, rising from a chair, standing . The patient presents with impairments in ADL's, flexibility, gait, independence in exercise, joint mobility, overall function, patient reported outcome measures, range of motion, strength, symptom management, and tissue tenderness. PROMIS (Patient-Reported Outcomes Measurement Information System) scores were reviewed and identified as within normal limits. Prognosis for therapy is Good due to: good support system/ coping skills . The patient will benefit from skilled therapy services to meet the goals established for this plan of care as noted below. Goals for Episode of Care: established 05/26/24 [place] in home exercise program. Patient will decrease pain to 1-2/10 with functional activities to allow patient to improve ambulation. Patient will increase active ROM of L knee extension to 0 degrees to allow pt to to improve performance of ADLs and to improve gait mechanics / gait pattern . Patient will demonstrate increase in L quadriceps strength to 4/5 during manual muscle testing in order to improve function for prior functional tasks. Patient will increase flexibility of L gastrocnemius to WNL to improve mechanics. Perform walking 1-2 miles with decreased report of symptoms/pain in 6 weeks. Patient Goals: reduce L knee pain Time Frame for Goals and Treatment : 07/07/24 Planned Interventions, Frequency, and Duration: Current Frequency: 1x/week Duration: 6 weeks Total Number of Visits Planned: 6 Planned Treatment Interventions: Therapeutic exercise (40879), Neuromuscular re-education (22610), Manual therapy (12183), Therapeutic activities (96152), Gait Training (19510), Self-shelter management (14708) PLAN FOR NEXT VISIT: standing/closed chain quad strengthening as tolerated. Consider TRX and banded TKE Patient demonstrates good understanding of plan of care and treatment. The above goals and plan of care were discussed and agreed upon by patient/family. SUBJECTIVE: for L knee pain that onset mid May 03 as a result of a 5K followed by an [employer] game within the same day. Pt. did wear a brace with some relief but no longer needs it. Pt. reports instability and stiffness. Much improved symptoms following cortisone injection. 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 5 points is clinically meaningfully difference Percentiles provide an indication of how the patient's score ranks in relation to the general population. Higher percentile rankings indicate better function/quality of life. 50th percentile is the average of the general population and indicates half of respondents had a worse score. OBJECTIVE MEASURES WITH LEVEL OF FUNCTION: Knee Observations L Knee Palpation Tenderness: Medial joint line, Medial gastroc head (TrP palpable in the L medial gastroc head) Sensation - Lower Extremity LE Light Touch Sensation: Grossly Intact LE AROM L Hip Flexion: 137 Degrees (medial pain at endrange) L Knee Extension: -12 Degrees LE Flexibility Flexibility: Gastrocnemius Flexibility L Gastrocnemius Flexibility: limited Gait Gait Observation: lacks heel stirke LLE Education: Education Learning Preferences: Demonstration, Explanation Barriers: Acuity of Illness Learning/educational needs: Home exercise program, Plan of Care, Gait Training Education Provided: Yes, see treatment interventions for education provided Education Provided To: Patient Education Mode/Type: Demonstration, Explanation/Discussion, Literature/Printed Materials, Performance Response to Education/Teach Back: States/Identifies, Return Demonstration TREATMENT: PT Treatment Interventions: Therapeutic Exercise, Self-Chcf Management Evaluation Therapeutic Exercise: 1: *Access Code: [email or web address] URL: [email or web address] Date: 05/26/2024 Prepared by: Heather Porras Exercises - Quad Setting and Stretching - 2-3 x daily - 7 x weekly - 2 sets - 5 reps - 10 hold - Supine Short Arc Quad - 1-2 x daily - 7 x weekly - 3 sets - 8 reps - Seated Long Arc Quad - 1-2 x daily - 7 x weekly - 2 sets - 5 reps - Sidelying Hip Abduction - 1 x daily - 7 x weekly - 3 sets - 8 reps - Gastroc Stretch on Wall - 1 x daily - 7 x weekly - 3 sets - 30 hold Skilled Intervention: Patient was educated in proper exercise technique and purpose for exercises. Skilled judgment was used in selection of appropriate interventions. Provided written instruction for home exercise program to facilitate proper performance and compliance. Correct performance of therapeutic exercises was facilitated with verbal, visual, and tactile cuing. Educated patient on rationale for performing exercises in regards to decreasing fatigue , increase ease of ADL, and ROM and function . Patient education as noted. Self-Chcf Management: 1: advised ice 2: discussed heel to toe gait pattern 3: discussed goal to reduce quad lat 4: advised placement of TENS pads at home for relief Skilled Intervention: Skilled judgment in the selection of proper modification for activity of daily living/home management based on clinical presentation, deficits, and needs. Provided written instruction for activities of daily living techniques to facilitate proper performance and compliance. Reviewed patient specific diagnosis in relation to activities of daily living/home management. Activity progression based on professional judgement. Moderate verbal cues for maintaining neutral spine alignment. Provided written instruction for home program to facilitate proper performance and compliance. Correct performance of home program was facilitated with verbal, visual, and tactile cueing. Billing * Evaluation Low Complexity: 1 Unit Therapeutic Exercise Treatment Minutes: 13 Self-Care/Home Management Treatment Minutes: 10 Skilled Treatment Time Minutes (timed and untimed codes): 43 Total Session Time (minutes): 43 Session Start Time : 1350 Session Stop Time : 1433 Heather De Leon PT documented in this encounter [facility] 05-26-2024 Note HNO ID: [id number] Author: HEATHER DE LEON PT Service: ? Author Type: Physical Therapist Type: Progress Notes Filed: 05/26/2024 14:41 Note Text: Episode Visit Count: 1 Therapist That Will Accept/Oversee The Plan Of Care: Heather De Leon Start of Care Date: 05/26/24 Onset Date: 05/03/24 Plan of Care Certification Date: 05/26/24 Next Certification Due Date: 06/30/24 Patient Identified by Name and Date of : Yes REHABILITATION AND SPORTS THERAPY PHYSICAL THERAPY EVALUATION PLAN OF CARE: Assessment: Marquita Omalley presents with diagnosis of acute pain of left knee that interferes with stair negotiation, sitting, rising from a chair, standing . The patient presents with impairments in ADL's, flexibility, gait, independence in exercise, joint mobility, overall function, patient reported outcome measures, range of motion, strength, symptom management, and tissue tenderness. PROMIS? (Patient-Reported Outcomes Measurement Information System) scores were reviewed and identified as within normal limits. Prognosis for therapy is Good due to: good support system/ coping skills . The patient will benefit from skilled therapy services to meet the goals established for this plan of care as noted below. Goals for Episode of Care: established 05/26/24 [place] in home exercise program. Patient will decrease pain to 1-2/10 with functional activities to allow patient to improve ambulation. Patient will increase active ROM of L knee extension to 0 degrees to allow pt to to improve performance of ADLs and to improve gait mechanics / gait pattern . Patient will demonstrate increase in L quadriceps strength to 4/5 during manual muscle testing in order to improve function for prior functional tasks. Patient will increase flexibility of L gastrocnemius to WNL to improve mechanics. Perform walking 1-2 miles with decreased report of symptoms/pain in 6 weeks. Patient Goals: reduce L knee pain Time Frame for Goals and Treatment : 07/07/24 Planned Interventions, Frequency, and Duration: Current Frequency: 1x/week Duration: 6 weeks Total Number of Visits Planned: 6 Planned Treatment Interventions: Therapeutic exercise (55558), Neuromuscular re-education (64389), Manual therapy (06326), Therapeutic activities (44679), Gait Training (19820), Self-shelter management (95736) PLAN FOR NEXT VISIT: standing/closed chain quad strengthening as tolerated. Consider TRX and banded TKE Patient demonstrates good understanding of plan of care and treatment. The above goals and plan of care were discussed and agreed upon by patient/family. SUBJECTIVE: for L knee pain that onset mid May 03 as a result of a 5K followed by an [employer] game within the same day. Pt. did wear a brace with some relief but no longer needs it. Pt. reports instability and stiffness. Much improved symptoms following cortisone injection. 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 5 points is clinically meaningfully difference Percentiles provide an indication of how the patient's score ranks in relation to the general population. Higher percentile rankings indicate better function/quality of life. 50th percentile is the average of the general population and indicates half of respondents had a worse score. OBJECTIVE MEASURES WITH LEVEL OF FUNCTION: Knee Observations L Knee Palpation Tenderness: Medial joint line, Medial gastroc head (TrP palpable in the L medial gastroc head) Sensation - Lower Extremity LE Light Touch Sensation: Grossly Intact LE AROM L Hip Flexion: 137 Degrees (medial pain at endrange) L Knee Extension: -12 Degrees LE Flexibility Flexibility: Gastrocnemius Flexibility L Gastrocnemius Flexibility: limited Gait Gait Observation: lacks heel stirke LLE Education: Education Learning Preferences: Demonstration, Explanation Barriers: Acuity of Illness Learning/educational needs: Home exercise program, Plan of Care, Gait Training Education Provided: Yes, see treatment interventions fo (more content not included)... [facility] 05-22-2024 Telephone encounter Note Candy, Can you please help patient get scheduled as per my encounter today? Consult to plastic surgery, and also, follow up with Bariatric Medical team in approximately October. TY [facility] Work Phone: 05-22-2024 History of Present illness Narrative I have communicated my name and active licensure. The patient's identity and physical location were verified at the time of this visit. Either the patient or their legal architectural representative has been informed of the risks and benefits of -- and alternatives to -- treatment through a remote evaluation and consents to proceed with the evaluation remotely. Name: Marquita Omalley Index Surgery Date of Surgery: 05/11/2023 Surgeon: Mary Beth Caldwell MD Surgical Procedure: LAPAROSCOPIC LONGITUDINAL GASTRECTOMY, GASTRIC RESTRICTIVE PROCEDURE Pre-surgical weight: 115.7 kg (255 lb) Override Index Surgery Information? No Other Bariatric Surgeries None Visit: 12 months Today's Visit: Wt 85.3 kg (188 lb) BMI 32.27 kg/m2 BMI 32.27 kg/(m^2) Last Visit: Wt: 86.6 kg (191 lb) BMI: 32.79 kg/(m^2) Total weight loss: 30.4 kg (67 lb) [place] weight: 66.1 kg (145 lb 10.6 oz) Excess weight: 49.6 kg (109 lb 5.4 oz) % of excess body weight lost: 30.4 kg (67 lb) (61.28% of excess weight loss) COMPLICATIONS SINCE LAST VISIT?: NONE DIET INTAKE: tolerates Phase V diet -B: 1 egg, a little cheese, scrambled (most mornings) -L: Seeq-a clear protein powder, salad w chicken -D: stir robertson w chicken, vegetables and a little rice -snacks: cashews, Ready Clean protein bars, carrots -beverages: most days does a good job of keeping hydrated-has a refillable water bottle-advised to avoid skipping meals and to try healthy protein shake as a meal replacement; also advised to avoid carbonated/sugary/caloric/alcoholi c beverages DAILY SUPPLEMENTS: Calcium: Calcium Citrate w/ vitamin D (1200 - 1500mg) -Fusion soft chew calcium Multivitamin & Minerals: Bariatric Fusion 2 per day Iron Supplement: included in multi-vitamin Vitamin B12: included in multivitamin Vitamin D3: included in multi-vitamin Other: N/A EXERCISE: going well until a couple of weeks ago in April-did her first 5K-she walked it-it did mess up her knee, then Sun did see Ortho who gave her a cortisone injection in her knee-that has helped a lot and has an upcoming consult w PT on Sunday; has 2 pound ankle weights Current Outpatient Medications Medication Sig ASHWAGANDHA EXTRACT ORAL Take by mouth once daily. xyasgntq-noqr-udsnb-oreg-capry 100 mg-150 mg- 50 mg-150 mg cap Take by mouth once daily. Zinc Acetate, Oral, 50 mg (zinc) cap Take by mouth once daily. vitamin b complex capsule Take 1 capsule by mouth once daily. albuterol HFA (PROVENTIL HFA, VENTOLIN HFA) 90 mcg/actuation inhaler Inhale 2 Puffs as instructed four times a day as needed. gabapentin (NEURONTIN) 600 mg tablet Take 1 tablet by mouth three times a day for 180 days. traZODone (DESYREL) 150 mg tablet Take 1 tablet by mouth daily at bedtime. famotidine (PEPCID) 20 mg tablet Take 1 tablet by mouth two times a day as needed. fluticasone-salmeterol (ADVAIR DISKUS) 250-50 mcg/dose inhaler Inhale 1 Puff as instructed two times a day. Rinse and gargle mouth after use with water. No current facility-administered medications for this visit. REVIEW OF SYSTEMS: Denies abdominal pain, constipation, diarrhea, melena, hematochezia PHYSICAL EXAM: Wt 85.3 kg (188 lb) LMP 01/03/2019 (Exact Date) BMI 32.27 kg/m General: alert and appropriate, in no distress, well-hydrated, well nourished, happy, smiling, interactive, and pleasant lady Skin: no rash noted Head: normocephalic, no abnormality or lesion noted Eyes: no injection and visual acuity is grossly normal Respiratory: breathing non-labored Assessment A/P: *48 y/o lady status post: Laparoscopic sleeve gastrectomy, Esophagogastroscopy and Liver biopsy done on: 05/11/[address] Caldwell -here for one year postop -had recent visit with BMI/RD/Warren Lincoln 05/02/24 -due for labs Convo: -excess skin is starting to bother her-would like a referral to Plastic Surgery -check labs; briefly mentioned weight management medications, and she will think about this and discuss further at 18 month postop. DISPOSITION: Return 6 month to Post-op follow up/ individual office visit EDUCATION: Encouraged to continue with healthy lifestyle changes and incorporate cardiovascular and resistance training, Discussed weight loss expectations after bariatric and metabolic surgery, or Discussed importance of protein intake as per the RDN note REFERRALS: Plastic surgery LABS: Today: CBC W DIFF, CMP, Vitamin B1, Vitamin B12, Folate, PTH Intact, Vitamin D25OH, Iron/TIBC/Ferritin, HBA1C, and See Epic Orders In 12 months: CBC W DIFF, CMP, Vitamin B1, Vitamin B12, Folate, PTH Intact, Vitamin D25OH, Iron/TIBC/Ferritin, Lipids, HBA1C, and See Epic Orders Elana Noel MD I spent a total of 30 minutes on the date of the service which included preparing to see the patient, [id number] patient care, completing clinical documentation, obtaining and/or reviewing separately obtained history, counseling and educating the patient/family/caregiver, ordering medications, tests, or procedures, and care coordination (not separately reported). (OTHER): -05/05/24 OV PCP -05/02/24 OV BMI/RD/A. Dimarino -12/20/23 OV BMI/Gort[place] documented in this encounter [facility] 05-22-2024 Note HNO ID: [id number] Author: ELANA NOEL MD Service: ? Author Type: Physician Type: Progress Notes Filed: 07/21/2024 15:47 Note Text: I have communicated my name and active licensure. The patient's identity and physical location were verified at the time of this visit. Either the patient or their legal architectural representative has been informed of the risks and benefits of -- and alternatives to -- treatment through a remote evaluation and consents to proceed with the evaluation remotely. Name: Marquita Omalley Index Surgery Date of Surgery: 05/11/2023 Surgeon: Mary Beth Caldwell MD Surgical Procedure: LAPAROSCOPIC LONGITUDINAL GASTRECTOMY, GASTRIC RESTRICTIVE PROCEDURE Pre-surgical weight: 115.7 kg (255 lb) Override Index Surgery Information? No Other Bariatric Surgeries None Visit: 12 months Today's Visit: Wt 85.3 kg (188 lb) BMI 32.27 kg/m2 BMI 32.27 kg/(m2) Last Visit: Wt: 86.6 kg (191 lb) BMI: 32.79 kg/(m2) Total weight loss: 30.4 kg (67 lb) [place] weight: 66.1 kg (145 lb 10.6 oz) Excess weight: 49.6 kg (109 lb 5.4 oz) % of excess body weight lost: 30.4 kg (67 lb) (61.28% of excess weight loss) COMPLICATIONS SINCE LAST VISIT?: NONE DIET INTAKE: tolerates Phase V diet -B: 1 egg, a little cheese, scrambled (most mornings) -L: Seeq-a clear protein powder, salad w chicken -D: stir robertson w chicken, vegetables and a little rice -snacks: cashews, Ready Clean protein bars, carrots -beverages: most days does a good job of keeping hydrated-has a refillable water bottle-advised to avoid skipping meals and to try healthy protein shake as a meal replacement; also advised to avoid carbonated/sugary/caloric/alcoholi c beverages DAILY SUPPLEMENTS: Calcium: Calcium Citrate w/ vitamin D (1200 - 1500mg) -Fusion soft chew calcium Multivitamin AND Minerals: Bariatric Fusion 2 per day Iron Supplement: included in multi-vitamin Vitamin B12: included in multivitamin Vitamin D3: included in multi-vitamin Other: N/A EXERCISE: going well until a couple of weeks ago in April-did her first 5K-she walked it-it did mess up her knee, then Sun did see Ortho who gave her a cortisone injection in her knee-that has helped a lot and has an upcoming consult w PT on Sunday; has 2 pound ankle weights Current Outpatient Medications Medication Sig ASHWAGANDHA EXTRACT ORAL Take by mouth once daily. qzdtuhzz-krti-esgfq-oreg-capry 100 mg-150 mg- 50 mg-150 mg cap Take by mouth once daily. Zinc Acetate, Oral, 50 mg (zinc) cap Take by mouth once daily. vitamin b complex capsule Take 1 capsule by mouth once daily. albuterol HFA (PROVENTIL HFA, VENTOLIN HFA) 90 mcg/actuation inhaler Inhale 2 Puffs as instructed four times a day as needed. gabapentin (NEURONTIN) 600 mg tablet Take 1 tablet by mouth three times a day for 180 days. traZODone (DESYREL) 150 mg tablet Take 1 tablet by mouth daily at bedtime. famotidine (PEPCID) 20 mg tablet Take 1 tablet by mouth two times a day as needed. fluticasone-salmeterol (ADVAIR DISKUS) 250-50 mcg/dose inhaler Inhale 1 Puff as instructed two times a day. Rinse and gargle mouth after use with water. No current facility-administered medications for this visit. REVIEW OF SYSTEMS: Denies abdominal pain, constipation, diarrhea, melena, hematochezia PHYSICAL EXAM: Wt 85.3 kg (188 lb) LMP 01/03/2019 (Exact Date) BMI 32.27 kg/m? General: alert and appropriate, in no distress, well-hydrated, well nourished, happy, smiling, interactive, and pleasant lady Skin: no rash noted Head: normocephalic, no abnormality or lesion noted Eyes: no injection and visual acuity is grossly normal Respiratory: breathing non-labored Assessment A/P: *48 y/o lady status post: Laparoscopic sleeve gastrectomy, Esophagogastroscopy and Liver biopsy done on: 05/11/[address] Caldwell -here for one year postop -had recent visit with BMI/RD/Warren Lincoln 05/02/24 -due for labs Convo: -excess skin is starting to bother her-would like a referral to Plastic Surgery -check labs; briefly mentioned weight management medications, and she will think about this and discuss further at 18 month postop. DISPOSITION: Return 6 month to Post-op follow up/ individual office visit EDUCATION: Encouraged to continue with healthy lifestyle changes and incorporate cardiovascular and resistance training, Discussed weight loss expectations after bariatric and metabolic surgery, or Discussed importance of protein intake as per the RDN note REFERRALS: Plastic surgery LABS: Today: CBC W DIFF, CMP, Vitamin B1, Vitamin B12, Folate, PTH Intact, Vitamin D25OH, Iron/TIBC/Ferritin, HBA1C, and See Epic Orders In 12 months: CBC W DIFF, CMP, Vitamin B1, Vitamin B12, Folate, PTH Intact, Vitamin D25OH, Iron/TIBC/Ferritin, Lipids, HBA1C, and See Epic Orders Elana Noel MD I spent a total of 30 minutes on the date of the service which included preparing to see the p (more content not included)... [facility] 05-19-2024 Note HNO ID: [id number] Author: LISA RODRÍGUEZ PA-C Service: ? Author Type: Physician Quick Mixer Operator Type: Progress Notes Filed: 05/19/2024 14:57 Note Text: Lisa Rodríguez PA-C Department of Orthopaedics Orthopaedics [address] [facility] [address] Dept: [phone] Dept May 19, [address] Remedios Pepper for an opinion regarding left knee pain. My final recommendations will be communicated back to the requesting physician by way of shared Medical record or letter to requesting physician via [place] mail. CHIEF COMPLAINT: New and Knee Pain of the Left Knee and Referred by Rosalina Pepper Ms. Marquita Omalley is a 48 year old female who presents with pain in her left knee which started about 2 weeks ago after she participated in a 5K. Patient states that she walked for most of the race, was having knee pain during the race. After the race she went to a [employer] game and was doing a lot more walking in climbing. Since then the knee has been painful, pain is mainly anterior medial and is a 6 out of 10 pressure which is worse with activity. She states that the knee feels unsteady as though it might give out. She has been wearing a knee brace which is beneficial. The patient had gastric bypass surgery in the past, she reports an 80 pound weight loss over the past year. She uses topical Biofreeze and Voltaren gel which is somewhat beneficial. She has been participating in 5K walks with her goal to be able to jog or run a full 5K. ASSESSMENT: M17.0 Primary osteoarthritis of both knees (primary encounter diagnosis) M25.562 Acute pain of left knee PLAN: The patient has some mild arthritic changes in the knee. I did suggest continuing with the topicals and did offer her a corticosteroid injection to see if we can get her pain under control. Advised that she pursue low impact exercises to keep from aggravating the osteoarthritis in her knee. We also discussed getting her into physical therapy to work on some strengthening. Patient agrees to plan. Ms. Marquita Omalley was advised as to contrast therapies and/or to take analgesics/anti-inflammatories as needed and all contraindications were reviewed. OBJECTIVE: Ms. Marquita Omalley is a pleasant 48 year old in no apparent distress. Gen:LMP 01/03/2019 nl development, obese, no deformities ENT: Normocephalic, normal hearing, moist mucosa CV: Pulses:DP/PT= 2+ and symmetric, capillary refill < 2 secs, no peripheral edema/varicosities Skin: no rash, bruising or lesions. Good turgor. Psych: cooperative and appropriate, alert and oriented x 3, good mood and affect. Musculoskeletal: KNEE EXAM: Left: Alignment: Neutral Range of motion is lacking a few degrees secondary to tight hamstrings degrees in extension and 120 degrees of flexion. Extension La degrees Pain with ROM: Yes Effusion: Slight Tender to the palpation of Medial femoral condyle and Medial joint line Pain with patellar compression: Yes Stability: Anterior/Posterior stable and Varus/Valgus stable Hip Exam: flexion to 100+ degrees, full extension, internal/external rotation adequate, and no pain with log roll Neurovascular Status: Sensation Intact, Moves foot and ankle up AND down, and 2+ dorsalis pedis In addition to the comprehensive evaluation, assessment and plan outlined above, and as a distinct and separate element to the visit today, separate from a PT consult order, we have made the determination to proceed with an injection to aid in the management of the patient's condition. We discussed the risks, benefits, alternatives and expected outcomes of this injection in detail, and the patient agreed to proceed. The procedure was performed as detailed below. Large Joint Arthro/Inj: L knee joint Informed Consent Consent Obtained: Verbal [place] Protocol A moment to CARE was completed. SIGN IN Sign in communication not applicable due to emergent procedure. Personnel directly involved with the procedure wore the appropriate PPE. Special Equipment: N/A Patient/Surrogate Stated/Verified: Patient name, Date of , Relevant allergies and Intended procedure TIME OUT Relevant labs, photos, and/or imaging studies have been reviewed. Intended patient and procedure match the source document(s). Consent documented and matches the intended procedure. Correct side/site marked and visible. Medications required for procedure verified. No fire risk assessment and interventions applicable. No implant(s) inserted.05/19/2024 10:12 AM The procedure site was prepped in the usual sterile fashion. Site: L knee joint Medications: 6 mg betamethasone acetate-betamethasone sodium phosphate 6 mg/mL Anesthetics: 5 mL lidocaine (PF) 10 mg/mL (1 %) Outcome: Tolerated well, no immediate complications Post-injection instructions were reviewed with the patient and the patient voiced understanding of thes (more content not included)... [facility] 05-19-2024 History of Present illness Narrative Associated Order(s): Large Joint Arthro/Inj: L knee joint Post-Procedure Diagnose(s): Acute pain of left knee Lisa Rodríguez PA-C Department of Orthopaedics Orthopaedics [address] [facility] [address] Dept: [phone] Dept May 19, [address] Remedios Pepper for an opinion regarding left knee pain. My final recommendations will be communicated back to the requesting physician by way of shared Medical record or letter to requesting physician via US mail. CHIEF COMPLAINT: New and Knee Pain of the Left Knee and Referred by Rosalina Pepper Ms. Marquita Omalley is a 48 year old female who presents with pain in her left knee which started about 2 weeks ago after she participated in a 5K. Patient states that she walked for most of the race, was having knee pain during the race. After the race she went to a [employer] game and was doing a lot more walking in climbing. Since then the knee has been painful, pain is mainly anterior medial and is a 6 out of 10 pressure which is worse with activity. She states that the knee feels unsteady as though it might give out. She has been wearing a knee brace which is beneficial. The patient had gastric bypass surgery in the past, she reports an 80 pound weight loss over the past year. She uses topical Biofreeze and Voltaren gel which is somewhat beneficial. She has been participating in 5K walks with her goal to be able to jog or run a full 5K. ASSESSMENT: M17.0 Primary osteoarthritis of both knees (primary encounter diagnosis) M25.562 Acute pain of left knee PLAN: The patient has some mild arthritic changes in the knee. I did suggest continuing with the topicals and did offer her a corticosteroid injection to see if we can get her pain under control. Advised that she pursue low impact exercises to keep from aggravating the osteoarthritis in her knee. We also discussed getting her into physical therapy to work on some strengthening. Patient agrees to plan. Ms. Marquita Omalley was advised as to contrast therapies and/or to take analgesics/anti-inflammatories as needed and all contraindications were reviewed. OBJECTIVE: Ms. Marquita Omalley is a pleasant 48 year old in no apparent distress. Gen:LMP 01/03/2019 nl development, obese, no deformities ENT: Normocephalic, normal hearing, moist mucosa CV: Pulses:DP/PT= 2+ and symmetric, capillary refill < 2 secs, no peripheral edema/varicosities Skin: no rash, bruising or lesions. Good turgor. Psych: cooperative and appropriate, alert and oriented x 3, good mood and affect. Musculoskeletal: KNEE EXAM: Left: Alignment: Neutral Range of motion is lacking a few degrees secondary to tight hamstrings degrees in extension and 120 degrees of flexion. Extension La degrees Pain with ROM: Yes Effusion: Slight Tender to the palpation of Medial femoral condyle and Medial joint line Pain with patellar compression: Yes Stability: Anterior/Posterior stable and Varus/Valgus stable Hip Exam: flexion to 100+ degrees, full extension, internal/external rotation adequate, and no pain with log roll Neurovascular Status: Sensation Intact, Moves foot and ankle up & down, and 2+ dorsalis pedis In addition to the comprehensive evaluation, assessment and plan outlined above, and as a distinct and separate element to the visit today, separate from a PT consult order, we have made the determination to proceed with an injection to aid in the management of the patient's condition. We discussed the risks, benefits, alternatives and expected outcomes of this injection in detail, and the patient agreed to proceed. The procedure was performed as detailed below. Large Joint Arthro/Inj: L knee joint Informed Consent Consent Obtained: Verbal [place] Protocol A moment to CARE was completed. SIGN IN Sign in communication not applicable due to emergent procedure. Personnel directly involved with the procedure wore the appropriate PPE. Special Equipment: N/A Patient/Surrogate Stated/Verified: Patient name, Date of , Relevant allergies and Intended procedure TIME OUT Relevant labs, photos, and/or imaging studies have been reviewed. Intended patient and procedure match the source document(s). Consent documented and matches the intended procedure. Correct side/site marked and visible. Medications required for procedure verified. No fire risk assessment and interventions applicable. No implant(s) inserted.05/19/2024 10:12 AM The procedure site was prepped in the usual sterile fashion. Site: L knee joint Medications: 6 mg betamethasone acetate-betamethasone sodium phosphate 6 mg/mL Anesthetics: 5 mL lidocaine (PF) 10 mg/mL (1 %) Outcome: Tolerated well, no immediate complications Post-injection instructions were reviewed with the patient and the patient voiced understanding of these instructions. SIGN OUT No specimen collected. All instruments, equipment, possible retained foreign bodies accounted for. Post-procedure follow-up management communicated and Plan of Care Visit completed when applicable Imaging: IMPRESSION: No acute bony abnormality. Packer Fuser: MATT Transcribe Date/Time: May 11 2024 6:16P Dictated by : RADHA MARX MD This examination was interpreted and the report reviewed and electronically signed by: RADHA MARX MD on May 11 2024 6:17PM EST Results-Findings * * *Final Report* * * DATE OF EXAM: May 05 2024 4:18PM WOX [id number] - XR KNEE 4V AP/PA BOTH+LAT/NARA LT / PROCEDURE REASON: Injury of left knee, initial encounter * * * * Physician Interpretation * * * * EXAMINATION / TECHNIQUE: XR KNEE 4V AP/PA BOTH+LAT/NRAA LT HISTORY: ran a 5k Sunday and then went to [employer] game and now has pressure medial and lateral left knee Injury of left knee, initial encounter COMPARISON: None RESULT: No acute fracture or osseous malalignment is identified. The joint spaces are preserved. Small to moderate-sized joint effusion. Supporting Subjective Information Below: Past Surgical History: PAST SURGICAL HISTORY Procedure Laterality Date ABDOMINAL SURGERY HX APPENDECTOMY 1982 APPENDECTOMY HX BACK SURGERY HX BREAST SURGERY HX COLONOSCOPY SCREENING 02/13/2022 10 year next colonoscopy 2031 COLPOPEXY VAGINAL INTRAPERITONEAL APPROACH 01/23/2019 uterosacral ligament fixation FRACTURE SURGERY LIG/TRNSXJ FLP TUBE ABDL/VAG APPR UNI/BI 06/2007 MAMMO MAMMOGRAM 07/20/2010 OTHER lumbar spinal fusion L5-S1 PAST SURGICAL HISTORY OF 09/2008 Micro Disectomy L5S1 PAST SURGICAL HISTORY OF Left 2013 Left wrist surgery POST COLPORRHAPHY RECTOCELE W/WO PERINEORRHAPHY 01/23/2019 posterior repair REDUCTION OF LARGE BREAST 09/2006 Bilateral SKIN BIOPSY HX SLING OPER STRES INCONTINENCE 01/23/2019 TVT exact TONSILLECTOMY HX VAGINAL HYSTERECTOMY VAGINAL HYSTERECTOMY UTERUS 250 GM/< 01/23/2019 tubes and ovaries remain Medications: Current Outpatient Medications Medication Sig ASHWAGANDHA EXTRACT ORAL Take by mouth once daily. yalcdmzq-twgd-hxctj-oreg-capry 100 mg-150 mg- 50 mg-150 mg cap Take by mouth once daily. Zinc Acetate, Oral, 50 mg (zinc) cap Take by mouth once daily. vitamin b complex capsule Take 1 capsule by mouth once daily. albuterol HFA (PROVENTIL HFA, VENTOLIN HFA) 90 mcg/actuation inhaler Inhale 2 Puffs as instructed four times a day as needed. gabapentin (NEURONTIN) 600 mg tablet Take 1 tablet by mouth three times a day for 180 days. traZODone (DESYREL) 150 mg tablet Take 1 tablet by mouth daily at bedtime. famotidine (PEPCID) 20 mg tablet Take 1 tablet by mouth two times a day as needed. fluticasone-salmeterol (ADVAIR DISKUS) 250-50 mcg/dose inhaler Inhale 1 Puff as instructed two times a day. Rinse and gargle mouth after use with water. No current facility-administered medications for this visit. Allergies: Benadryl [Diphenhydramine], Lyrica [Pregabalin], Seasonal Allergies, and Sulfa (Sulfonamide Antibiotics) ROS: General (negative for fatigue, malaise, weight loss/gain) HEENT (negative for headache, earache, recent vision changes, sinus pain, sore throat) Respiratory (no recent shortness of breath, hemoptysis) CV (negative for chest tightness, palpitations) Musculoskeletal (see HPI) Psych (no depression, anxiety) This note was partially generated using [employer] voice recognition system, and there may be some incorrect words, spellings, and punctuation that were not noted in checking the note before saving. Lisa Rodríguez PA-C Patient presents with: Left Knee - New, Knee Pain Referred by Rosalina Pepper AMB ROOMING INTAKE FLOWSHEET DATA Pain Pain Level: 6 Pain Location: Knee-Left Description: Aching, Pressure, Radiating, Sharp, Shooting, Stabbing/Not Incision, Tightness Duration Amount of Time: 2 Duration Units: Weeks Frequency: Continuous Intervention/Comfort measure: Medication, Reposition, Cold, Pillow support, Positioning, Splinting Patient states 2 weeks ago she walked a 5K and half way through she started having pain in her left knee. Later that night she went to an [employer] game and walked a long distance again. No specific injury. She is having posterior, lateral and medial knee pain. Feels her swelling is better. She has tried Biofreeze, Voltaren gel and Ten units and only helps temporary. 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 X-rays done on 05/05/24. documented in this encounter [facility] 05-19-2024 Note HNO ID: [id number] Author: ELIANE RICH MA Service: ? Author Type: Manager Utility Type: Progress Notes Filed: 05/19/2024 14:57 Note Text: Patient presents with: Left Knee - New, Knee Pain Referred by Rosalina Pepper AMB ROOMING INTAKE FLOWSHEET DATA Pain Pain Level: 6 Pain Location: Knee-Left Description: Aching, Pressure, Radiating, Sharp, Shooting, Stabbing/Not Incision, Tightness Duration Amount of Time: 2 Duration Units: Weeks Frequency: Continuous Intervention/Comfort measure: Medication, Reposition, Cold, Pillow support, Positioning, Splinting Patient states 2 weeks ago she walked a 5K and half way through she started having pain in her left knee. Later that night she went to an [employer] game and walked a long distance again. No specific injury. She is having posterior, lateral and medial knee pain. Feels her swelling is better. She has tried Biofreeze, Voltaren gel and Ten units and only helps temporary. 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 X-rays done on 05/05/24. [facility] 05-15-2024 Telephone encounter Note I will place a consult to ortho. [facility] 05-15-2024 Miscellaneous Notes I will place a consult to ortho. documented in this encounter [facility] 05-05-2024 History of Present illness Narrative Radiology Service Progress Note PATIENT NAME: Marquita Omalley DATE OF SERVICE: May 05, 2024 TIME: 4:04 PM PATIENT IDENTITY VERIFICATION COMPLETED USING TWO (2) IDENTIFIERS: Name and Date of confirmed by patient verbally. FALL SCREENING: Has the patient had 2 falls in the last year or 1 fall with injury or currently using an Ambulatory Assistive Device (Walker, Cane, Wheelchair, Crutches, etc.)? No PATIENT GENDER DATA: Female. status: : No status: NO. PATIENT RELEVANT IMPLANT DATA REVIEWED: Not Applicable PATIENT PRESENTS WITH AN IMPLANTABLE OR ATTACHED CONVEYOR BELT REPAIRER: No RADIOLOGY DEPARTMENT: General X-ray: Exam(s) Completed: Lower Extremity X-Ray(s): Knee, AP / Lat / Tunne / Merchant Left and Wt. Bearing PERIPHERAL IV DATA: Not applicable SIGNED BY: RT Thalia(R) May 05, 2024 4:04 PM documented in this encounter [facility] 05-05-2024 Note HNO ID: [id number] Author: SHERLEY PRITCHARD RT([place]) Service: Radiology Author Type: Technologist Type: Progress Notes Filed: 05/05/2024 16:18 Note Text: Radiology Service Progress Note PATIENT NAME: Marquita Omalley DATE OF SERVICE: May 05, 2024 TIME: 4:04 PM PATIENT IDENTITY VERIFICATION COMPLETED USING TWO (2) IDENTIFIERS: Name and Date of confirmed by patient verbally. FALL SCREENING: Has the patient had 2 falls in the last year or 1 fall with injury or currently using an Ambulatory Assistive Device (Walker, Cane, Wheelchair, Crutches, etc.)? No PATIENT GENDER DATA: Female. status: : No status: NO. PATIENT RELEVANT IMPLANT DATA REVIEWED: Not Applicable PATIENT PRESENTS WITH AN IMPLANTABLE OR ATTACHED CONVEYOR BELT REPAIRER: No RADIOLOGY DEPARTMENT: General X-ray: Exam(s) Completed: Lower Extremity X-Ray(s): Knee, AP / Lat / Tunne / Merchant Left and Wt. Bearing PERIPHERAL IV DATA: Not applicable SIGNED BY: RT Thalia(R) May 05, 2024 4:04 PM [facility] 05-05-2024 Instructions Remedios Pepper APRN.CNP - 05/05/2024 3:55 PM EST - METHYLPREDNISOLONE 4 MG TABLETS IN A DOSE PACK - XR KNEE GENERAL 4V AP BOTH/PA BOTH/LAT/MERC LEFT - Wear left knee support - Ice for another day documented in this encounter [facility] 05-05-2024 Note HNO ID: [id number] Author: REMEDIOS PEPPER APRN.CNP Service: ? Author Type: Clinical Nurse Specialist Type: Progress Notes Filed: 05/05/2024 15:57 Note Text: This is a 48 year old female who presents today with: Patient presents with: Knee Pain: Left knee pain and swelling for 3 days HISTORY OF PRESENT ILLNESS: Marquita Omalley is a 48 year old female. Patient presents with: Knee Pain: Left knee pain and swelling for 3 days On Sunday, she ran a 5 K then went to [employer] football game. Left knee started to swell at the game. Feels tight. No pain or instability. Pulling medial aspect. On occasion the left knee is tight. Took tumeric, 800 mg ibuprofen, iced it, elevated. PAST MEDICAL HISTORY: PAST MEDICAL HISTORY Diagnosis Date Anxiety Arthritis Chest pain Depression Ear infection Migraines Obesity, Class II, BMI 35-39.9 02/20/2019 PTSD (post-traumatic stress disorder) Sciatica UTI (lower urinary tract infection) PAST SURGICAL HISTORY Procedure Laterality Date ABDOMINAL SURGERY HX APPENDECTOMY 1982 APPENDECTOMY HX BACK SURGERY HX BREAST SURGERY HX COLONOSCOPY SCREENING 02/13/2022 10 year next colonoscopy 2031 COLPOPEXY VAGINAL INTRAPERITONEAL APPROACH 01/23/2019 uterosacral ligament fixation FRACTURE SURGERY LIG/TRNSXJ FLP TUBE ABDL/VAG APPR UNI/BI 06/2007 MAMMO MAMMOGRAM 07/20/2010 OTHER lumbar spinal fusion L5-S1 PAST SURGICAL HISTORY OF 09/2008 Micro Disectomy L5S1 PAST SURGICAL HISTORY OF Left 2013 Left wrist surgery POST COLPORRHAPHY RECTOCELE W/WO PERINEORRHAPHY 01/23/2019 posterior repair REDUCTION OF LARGE BREAST 09/2006 Bilateral SKIN BIOPSY HX SLING OPER STRES INCONTINENCE 01/23/2019 TVT exact TONSILLECTOMY HX VAGINAL HYSTERECTOMY VAGINAL HYSTERECTOMY UTERUS 250 GM/< 01/23/2019 tubes and ovaries remain ALLERGIES Benadryl [Diphenhydramine], Lyrica [Pregabalin], Seasonal Allergies, and Sulfa (Sulfonamide Antibiotics) MEDICATIONS Current Outpatient Medications Medication Sig albuterol HFA (PROVENTIL HFA, VENTOLIN HFA) 90 mcg/actuation inhaler Inhale 2 Puffs as instructed four times a day as needed. gabapentin (NEURONTIN) 600 mg tablet Take 1 tablet by mouth three times a day for 180 days. traZODone (DESYREL) 150 mg tablet Take 1 tablet by mouth daily at bedtime. famotidine (PEPCID) 20 mg tablet Take 1 tablet by mouth two times a day as needed. fluticasone-salmeterol (ADVAIR DISKUS) 250-50 mcg/dose inhaler Inhale 1 Puff as instructed two times a day. Rinse and gargle mouth after use with water. No current facility-administered medications for this visit. FAMILY HISTORY Problem Relation Age of Onset Allergies Mother Anesthesia Mother Headache Mother Obesity Mother Hypertension Father Heart Father Obesity Sister Allergies Sister Headache Sister Diabetes Maternal Grandmother Emphysema Maternal Grandmother Breast Cancer Maternal Grandmother Emphysema Maternal Grandfather Alcohol/Drug Paternal Grandfather Headache Daughter other (Pneumonia) Daughter Headache Daughter Headache Son other (RSV) Son Psychiatry Maternal Uncle Suicide Social History Tobacco Use Smoking status: Former Current packs/day: 0.00 Types: Cigarettes Quit date: 08/03/2005 Years since quittin.7 Smokeless tobacco: Never Vaping Use Vaping status: Never Used Substance Use Topics Alcohol use: Not Currently Comment: Rarely Drug use: No EXAM: BP 120/74 Pulse 95 Resp 16 Wt 86.6 kg (191 lb) LMP 01/03/2019 (Exact Date) SpO2 100% BMI 32.79 kg/m? PHYSICAL EXAM: Physical Exam Vitals reviewed. Constitutional: Appearance: Normal appearance. Musculoskeletal: General: Swelling and signs of injury present. No tenderness or deformity. Normal range of motion. Left lower leg: Edema present. Comments: Left medial knee > lateral swelling. Effusion noted. No pain with flexion, extension, or medial or lateral flexion. No instability. No heat, no instability. No crepitus Skin: General: Skin is warm and dry. Neurological: Mental Status: She is alert and oriented to person, place, and time. Psychiatric: Mood and Affect: Mood normal. Behavior: Behavior normal. LABS: Xray left knee ASSESSMENT/PLAN: 1. Injury of left knee, initial encounter - ICD9: 959.7, ICD10: S89.92XA Ran 5 K- left knee swollen since then - METHYLPREDNISOLONE 4 MG TABLETS IN A DOSE PACK - XR KNEE GENERAL 4V AP BOTH/PA BOTH/LAT/MERC LEFT - Knee support as needed - Ice for today and tomorrow Discussed treatment plan and patient voices understanding. Patient's questions answered appropriately. Medications and potential side effects were discussed and patient voices understanding. Return to the office as scheduled or as needed for worsening/no improvement. Remedios Pepper APRN.[facility] 05-05-2024 History of Present illness Narrative This is a 48 year old female who presents today with: Patient presents with: Knee Pain: Left knee pain and swelling for 3 days HISTORY OF PRESENT ILLNESS: Marquita Omalley is a 48 year old female. Patient presents with: Knee Pain: Left knee pain and swelling for 3 days On Sunday, she ran a 5 K then went to [employer] football game. Left knee started to swell at the game. Feels tight. No pain or instability. Pulling medial aspect. On occasion the left knee is tight. Took tumeric, 800 mg ibuprofen, iced it, elevated. PAST MEDICAL HISTORY: PAST MEDICAL HISTORY Diagnosis Date Anxiety Arthritis Chest pain Depression Ear infection Migraines Obesity, Class II, BMI 35-39.9 02/20/2019 PTSD (post-traumatic stress disorder) Sciatica UTI (lower urinary tract infection) PAST SURGICAL HISTORY Procedure Laterality Date ABDOMINAL SURGERY HX APPENDECTOMY 1983 APPENDECTOMY HX BACK SURGERY HX BREAST SURGERY HX COLONOSCOPY SCREENING 02/13/2022 10 year next colonoscopy 2031 COLPOPEXY VAGINAL INTRAPERITONEAL APPROACH 01/23/2019 uterosacral ligament fixation FRACTURE SURGERY LIG/TRNSXJ FLP TUBE ABDL/VAG APPR UNI/BI 06/2007 MAMMO MAMMOGRAM 07/20/2010 OTHER lumbar spinal fusion L5-S1 PAST SURGICAL HISTORY OF 09/2008 Micro Disectomy L5S1 PAST SURGICAL HISTORY OF Left 2013 Left wrist surgery POST COLPORRHAPHY RECTOCELE W/WO PERINEORRHAPHY 01/23/2019 posterior repair REDUCTION OF LARGE BREAST 09/2006 Bilateral SKIN BIOPSY HX SLING OPER STRES INCONTINENCE 01/23/2019 TVT exact TONSILLECTOMY HX VAGINAL HYSTERECTOMY VAGINAL HYSTERECTOMY UTERUS 250 GM/< 01/23/2019 tubes and ovaries remain ALLERGIES Benadryl [Diphenhydramine], Lyrica [Pregabalin], Seasonal Allergies, and Sulfa (Sulfonamide Antibiotics) MEDICATIONS Current Outpatient Medications Medication Sig albuterol HFA (PROVENTIL HFA, VENTOLIN HFA) 90 mcg/actuation inhaler Inhale 2 Puffs as instructed four times a day as needed. gabapentin (NEURONTIN) 600 mg tablet Take 1 tablet by mouth three times a day for 180 days. traZODone (DESYREL) 150 mg tablet Take 1 tablet by mouth daily at bedtime. famotidine (PEPCID) 20 mg tablet Take 1 tablet by mouth two times a day as needed. fluticasone-salmeterol (ADVAIR DISKUS) 250-50 mcg/dose inhaler Inhale 1 Puff as instructed two times a day. Rinse and gargle mouth after use with water. No current facility-administered medications for this visit. FAMILY HISTORY Problem Relation Age of Onset Allergies Mother Anesthesia Mother Headache Mother Obesity Mother Hypertension Father Heart Father Obesity Sister Allergies Sister Headache Sister Diabetes Maternal Grandmother Emphysema Maternal Grandmother Breast Cancer Maternal Grandmother Emphysema Maternal Grandfather Alcohol/Drug Paternal Grandfather Headache Daughter other (Pneumonia) Daughter Headache Daughter Headache Son other (RSV) Son Psychiatry Maternal Uncle Suicide Social History Tobacco Use Smoking status: Former Current packs/day: 0.00 Types: Cigarettes Quit date: 08/03/2005 Years since quittin.7 Smokeless tobacco: Never Vaping Use Vaping status: Never Used Substance Use Topics Alcohol use: Not Currently Comment: Rarely Drug use: No EXAM: BP 120/74 Pulse 95 Resp 16 Wt 86.6 kg (191 lb) LMP 01/03/2019 (Exact Date) SpO2 100% BMI 32.79 kg/m PHYSICAL EXAM: Physical Exam Vitals reviewed. Constitutional: Appearance: Normal appearance. Musculoskeletal: General: Swelling and signs of injury present. No tenderness or deformity. Normal range of motion. Left lower leg: Edema present. Comments: Left medial knee > lateral swelling. Effusion noted. No pain with flexion, extension, or medial or lateral flexion. No instability. No heat, no instability. No crepitus Skin: General: Skin is warm and dry. Neurological: Mental Status: She is alert and oriented to person, place, and time. Psychiatric: Mood and Affect: Mood normal. Behavior: Behavior normal. LABS: Xray left knee ASSESSMENT/PLAN: 1. Injury of left knee, initial encounter - ICD9: 959.7, ICD10: S89.92XA Ran 5 K- left knee swollen since then - METHYLPREDNISOLONE 4 MG TABLETS IN A DOSE PACK - XR KNEE GENERAL 4V AP BOTH/PA BOTH/LAT/MERC LEFT - Knee support as needed - Ice for today and tomorrow Discussed treatment plan and patient voices understanding. Patient's questions answered appropriately. Medications and potential side effects were discussed and patient voices understanding. Return to the office as scheduled or as needed for worsening/no improvement. Remedios Pepper APRN.CAREER SERVICES OFFICER documented in this encounter [facility] 05-02-2024 Instructions Mushtaq Lincoln, WM - 05/02/2024 12:09 PM EST Nutrition Action Plan 1. Protein: Continue to strive for 79 g protein per day. Eat protein first at all meals. Lean meats, low fat/part skim dairy products, peanut butter, eggs, beans. 2. Eat 4 small meals per day or 3 meals and 1-2 small snacks for additional protein 3. Fluids: 64 oz per day, minimum. No carbonation, no caffeine, no calories, no alcohol. 4. Vitamin/minerals: continue bariatric fusion complete chewables (2 in the am, 2 in the pm) 5. Exercise: strive for daily activity - combine strength training and cardio for best workouts. Goal is 30 minutes 5-6x per week. 6. Practice these: Eat in this order protein first, vegetable and fruit second and whole grain carbohydrates last. * Separate eating and drinking by 30 minutes * Chew your food 20-30x per bite * Meals should last 30 minutes. 7. Track meals and snacks with an radha; aim for 2644-2798 calories per day Follow Up on 11/07/24 at 8 AM documented in this encounter [facility] 05-02-2024 History of Present illness Narrative [facility] Nutrition Therapy: Virtual Consult - Re-assessment I have communicated my name and active licensure. The patient s identity and physical location were verified at the time of this visit. Either the patient or their legal architectural representative has been informed of the risks and benefits of -- and alternatives to -- treatment through a remote evaluation and consents to proceed with the evaluation remotely. Nutrition Diagnosis: Overweight/obesity, related to, food/nutrition - related knowledge deficit, as evidenced by BMI above normative standard for age and gender RECOMMENDED MALNUTRITION DIAGNOSIS: NO MALNUTRITION IDENTIFIED NUTRITION CARE PLAN: Nutrition Intervention 05/02/2024: 1. Protein: Continue to strive for 79 g protein per day. Eat protein first at all meals. Lean meats, low fat/part skim dairy products, peanut butter, eggs, beans. 2. Eat 4 small meals per day or 3 meals and 1-2 small snacks for additional protein 3. Fluids: 64 oz per day, minimum. No carbonation, no caffeine, no calories, no alcohol. 4. Vitamin/minerals: continue bariatric fusion complete chewables (2 in the am, 2 in the pm) 5. Exercise: strive for daily activity - combine strength training and cardio for best workouts. Goal is 30 minutes 5-6x per week. 6. Practice these: Eat in this order protein first, vegetable and fruit second and whole grain carbohydrates last. * Separate eating and drinking by 30 minutes * Chew your food 20-30x per bite * Meals should last 30 minutes. 7. Track meals and snacks with an radha; aim for 3053-2902 calories per day Nutrition Monitoring & Evaluation: BMI <30 Need for Follow up: as needed and 18 months post op PROGRESS: 12 months post op LSG (Paulette) Net weight loss 61.2 lbs (250 lbs initial) Pre-surgery weight: 254 pounds 24.5 % TWL weight loss slightly less than expected nearly pounds weight gain since last assessment (188 lbs) Desired Weight: 145 lbs Diet recall indicates a consistent meal pattern with regular meals and snacks. Patient tolerates Phase V diet plan well without complaints. She confirms to eat slowly and separates fluids from foods as recommended. She meets the recommended >150 minutes PA per week, but would benefit from increased intensity to facilitate further weight loss. ~1300 calories/day Meets recommendations <70 gm protein intake/day Inadequate ~60 oz fluid intake/day meets low end recommendations Consistent with appropriate vitamin/minerals Meets recommendations Labs reveal no recent labs to review Resting Metabolic Rate: 1469 Energy needs for weight loss: 5195-3491 calories per day (15-20 kcal/kg CBW) Protein needs: 79 grams protein per day (1.2 g/kg IBW) Nutrition Intervention Quan Lincoln 03/17/24 1. Protein: Continue to strive for 79 g protein per day. Eat protein first at all meals. Lean meats, low fat/part skim dairy products, peanut butter, eggs, beans. IN PROGRESS 2. Eat 4 small meals per day or 3 meals and 1-2 small snacks for additional protein MET 3. Fluids: 64 oz per day, minimum. No carbonation, no caffeine, no calories, no alcohol. IN PROGRESS 4. Vitamin/minerals: continue bariatric fusion complete chewable MVIs (2 in the AM, 2 in the PM) MET 5. Exercise: strive for daily activity - combine strength training and cardio for best workouts. Goal is 30 minutes 5-6x per week. MET 6. Practice these: Eat in this order protein first, vegetable and fruit second and whole grain carbohydrates last. MET * Separate eating and drinking by 30 minutes * Chew your food 20-30x per bite * Meals should last 30 minutes. 7. Track meals and snacks with an radha; aim for 0691-6377 calories per day MET Actions to implement interventions: see assessment Diet History: Breakfast - 1 egg with cheese (7 gm pro); sometimes 1 piece breakfast meat (3 gm pro) Snack - none OR adal mini protein bar (4 gm pro) Lunch - 4 oz chicken (28 gm pro), vegetables, and small portion rice Snack - none OR adal mini protein bar (4 gm pro) Dinner - 4-6 oz lean meat (28-42 gm pro) and vegetables Snack - none OR popcorn OR controlled portion ritz bitz sandwich crackers Beverages - 60 oz water, 1 c coffee with minimal creamer Alcohol - none Vitamins/Supplements - bariatric fusion completes (4/day), sometimes immunity enhancing supplements such as, b complex, vitamin C, zinc, etc. 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 Malnutrition Screening Significant unintentional weight loss? No Eating less than 75% of usual intake for more than 2 weeks? No Potential Signs of Inflammation: chronic condition Education Materials Provided: None this visit READINESS TO LEARN Cognitive ability: Alert and oriented Motivation to learn: Eager Family support: High - Very involved in pt care Instruction provided to: Patient Patient learns best by: Multiple Methods Factors affecting learning: None Physical limitations affecting learning: None Likelihood of Adherence: High Referred by: Paulette CORDOVA Billing Type: Re-assess/15 min 2 units SIGNATURE: Mushtaq Lincoln RD PATIENT NAME: Marquita Omalley DATE: May 02, 2024 TIME: 12:08 PM documented in this encounter [facility] 05-02-2024 Note HNO ID: [id number] Author: MUSHTAQ LINCOLN RD Service: ? Author Type: Registered Dietitian Type: Progress Notes Filed: 05/02/2024 12:09 Note Text: [facility] Nutrition Therapy: Virtual Consult - Re-assessment I have communicated my name and active licensure. The patient?s identity and physical location were verified at the time of this visit. Either the patient or their legal architectural representative has been informed of the risks and benefits of -- and alternatives to -- treatment through a remote evaluation and consents to proceed with the evaluation remotely. Nutrition Diagnosis: Overweight/obesity, related to, food/nutrition - related knowledge deficit, as evidenced by BMI above normative standard for age and gender RECOMMENDED MALNUTRITION DIAGNOSIS: NO MALNUTRITION IDENTIFIED NUTRITION CARE PLAN: Nutrition Intervention 05/02/2024: 1. Protein: Continue to strive for 79 g protein per day. Eat protein first at all meals. Lean meats, low fat/part skim dairy products, peanut butter, eggs, beans. 2. Eat 4 small meals per day or 3 meals and 1-2 small snacks for additional protein 3. Fluids: 64 oz per day, minimum. No carbonation, no caffeine, no calories, no alcohol. 4. Vitamin/minerals: continue bariatric fusion complete chewables (2 in the am, 2 in the pm) 5. Exercise: strive for daily activity - combine strength training and cardio for best workouts. Goal is 30 minutes 5-6x per week. 6. Practice these: Eat in this order protein first, vegetable and fruit second and whole grain carbohydrates last. * Separate eating and drinking by 30 minutes * Chew your food 20-30x per bite * Meals should last 30 minutes. 7. Track meals and snacks with an radha; aim for 8949-7381 calories per day Nutrition Monitoring AND Evaluation: BMI <30 Need for Follow up: as needed and 18 months post op PROGRESS: 12 months post op LSG (Paulette) Net weight loss 61.2 lbs (250 lbs initial) Pre-surgery weight: 254 pounds 24.5 % TWL weight loss slightly less than expected nearly pounds weight gain since last assessment (188 lbs) Desired Weight: 145 lbs Diet recall indicates a consistent meal pattern with regular meals and snacks. Patient tolerates Phase V diet plan well without complaints. She confirms to eat slowly and separates fluids from foods as recommended. She meets the recommended >150 minutes PA per week, but would benefit from increased intensity to facilitate further weight loss. ~1300 calories/day Meets recommendations <70 gm protein intake/day Inadequate ~60 oz fluid intake/day meets low end recommendations Consistent with appropriate vitamin/minerals Meets recommendations Labs reveal no recent labs to review Resting Metabolic Rate: 1469 Energy needs for weight loss: 4331-9999 calories per day (15-20 kcal/kg CBW) Protein needs: 79 grams protein per day (1.2 g/kg IBW) Nutrition Intervention Quan Lincoln 03/17/24 1. Protein: Continue to strive for 79 g protein per day. Eat protein first at all meals. Lean meats, low fat/part skim dairy products, peanut butter, eggs, beans. IN PROGRESS 2. Eat 4 small meals per day or 3 meals and 1-2 small snacks for additional protein MET 3. Fluids: 64 oz per day, minimum. No carbonation, no caffeine, no calories, no alcohol. IN PROGRESS 4. Vitamin/minerals: continue bariatric fusion complete chewable MVIs (2 in the AM, 2 in the PM) MET 5. Exercise: strive for daily activity - combine strength training and cardio for best workouts. Goal is 30 minutes 5-6x per week. MET 6. Practice these: Eat in this order protein first, vegetable and fruit second and whole grain carbohydrates last. MET * Separate eating and drinking by 30 minutes * Chew your food 20-30x per bite * Meals should last 30 minutes. 7. Track meals and snacks with an radha; aim for 3158-4242 calories per day MET Actions to implement interventions: see assessment Diet History: Breakfast - 1 egg with cheese (7 gm pro); sometimes 1 piece breakfast meat (3 gm pro) Snack - none OR adal mini protein bar (4 gm pro) Lunch - 4 oz chicken (28 gm pro), vegetables, and small portion rice Snack - none OR adal mini protein bar (4 gm pro) Dinner - 4-6 oz lean meat (28-42 gm pro) and vegetables Snack - none OR popcorn OR controlled portion ritz bitz sandwich crackers Beverages - 60 oz water, 1 c coffee with minimal creamer Alcohol - none Vitamins/Supplements - bariatric fusion completes (4/day), sometimes immunity enhancing supplements such as, b complex, vitamin C, zinc, etc. 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 [facility] 03-28-2024 Instructions Remedios Pepper APRN.CNP - 03/28/2024 8:19 AM EST 1) Doxycycline 100 mg 2 x day for 10 days- with food 2) Diflucan 150 mg once if needed 3) Follow up in 12 months for wellness and if needed documented in this encounter [facility] 03-28-2024 Note HNO ID: [id number] Author: REMEDIOS PEPPER APRN.CNP Service: ? Author Type: Clinical Nurse Specialist Type: Progress Notes Filed: 03/28/2024 08:22 Note Text: This is a 48 year old female who presents today with: Patient presents with: Back Pain: Medication follow up HISTORY OF PRESENT ILLNESS: Marquita Omalley is a 48 year old female. Patient presents with: Back Pain: Medication follow up Feeling better. Shoulder is better. Didn't sleep well last night because fell asleep on couch. Didn't take trazodone but when she takes it, it is effective. Blood pressure improved. Dull Headache with head ache. Left arm painful and tingling intermittent. Gabapentin increase helps. Down left arm AND 4-5 fingers. Stopped Seeing chiropractor. He told her that C5-6 is bulging. Also affecting C6-7. Pain in Left ridge of shoulder hurts this morning. Upper left back into bicep and down to 4th and 5th fingers intermittent. Getting Stim, ultrasound, and traction. Icing and using biofreeze, also using TENS unit Cough for last couple weeks. PAST MEDICAL HISTORY: PAST MEDICAL HISTORY Diagnosis Date Anxiety Arthritis Chest pain Depression Ear infection Migraines Obesity, Class II, BMI 35-39.9 02/20/2019 PTSD (post-traumatic stress disorder) Sciatica UTI (lower urinary tract infection) PAST SURGICAL HISTORY Procedure Laterality Date ABDOMINAL SURGERY HX APPENDECTOMY 1982 APPENDECTOMY HX BACK SURGERY HX BREAST SURGERY HX COLONOSCOPY SCREENING 02/13/2022 10 year next colonoscopy 2031 COLPOPEXY VAGINAL INTRAPERITONEAL APPROACH 01/23/2019 uterosacral ligament fixation FRACTURE SURGERY LIG/TRNSXJ FLP TUBE ABDL/VAG APPR UNI/BI 06/2007 MAMMO MAMMOGRAM 07/20/2010 OTHER lumbar spinal fusion L5-S1 PAST SURGICAL HISTORY OF 09/2008 Micro Disectomy L5S1 PAST SURGICAL HISTORY OF Left 2013 Left wrist surgery POST COLPORRHAPHY RECTOCELE W/WO PERINEORRHAPHY 01/23/2019 posterior repair REDUCTION OF LARGE BREAST 09/2006 Bilateral SKIN BIOPSY HX SLING OPER STRES INCONTINENCE 01/23/2019 TVT exact TONSILLECTOMY HX VAGINAL HYSTERECTOMY VAGINAL HYSTERECTOMY UTERUS 250 GM/< 01/23/2019 tubes and ovaries remain ALLERGIES Benadryl [Diphenhydramine], Lyrica [Pregabalin], Seasonal Allergies, and Sulfa (Sulfonamide Antibiotics) MEDICATIONS Current Outpatient Medications Medication Sig traZODone (DESYREL) 150 mg tablet Take 1 tablet by mouth daily at bedtime. famotidine (PEPCID) 20 mg tablet Take 1 tablet by mouth two times a day as needed. gabapentin (NEURONTIN) 600 mg tablet Take 1 tablet by mouth three times a day for 90 days. fluticasone-salmeterol (ADVAIR DISKUS) 250-50 mcg/dose inhaler Inhale 1 Puff as instructed two times a day. Rinse and gargle mouth after use with water. albuterol HFA (PROVENTIL HFA, VENTOLIN HFA) 90 mcg/actuation inhaler Inhale 2 Puffs as instructed four times a day as needed. No current facility-administered medications for this visit. FAMILY HISTORY Problem Relation Age of Onset Allergies Mother Anesthesia Mother Headache Mother Obesity Mother Hypertension Father Heart Father Obesity Sister Allergies Sister Headache Sister Diabetes Maternal Grandmother Emphysema Maternal Grandmother Breast Cancer Maternal Grandmother Emphysema Maternal Grandfather Alcohol/Drug Paternal Grandfather Headache Daughter other (Pneumonia) Daughter Headache Daughter Headache Son other (RSV) Son Psychiatry Maternal Uncle Suicide Social History Tobacco Use Smoking status: Former Current packs/day: 0.00 Types: Cigarettes Quit date: 08/03/2005 Years since quittin.6 Smokeless tobacco: Never Vaping Use Vaping status: Never Used Substance Use Topics Alcohol use: Not Currently Comment: Rarely Drug use: No EXAM: BP 120/76 Pulse 97 Resp 16 Wt 88 kg (194 lb) LMP 01/03/2019 (Exact Date) SpO2 97% BMI 33.30 kg/m? PHYSICAL EXAM: Physical Exam Constitutional: Appearance: Normal appearance. HENT: Head: Normocephalic. Cardiovascular: Rate and Rhythm: Normal rate and regular rhythm. Pulses: Normal pulses. Heart sounds: Normal heart sounds. Pulmonary: Effort: Pulmonary effort is normal. Breath sounds: Normal breath sounds. Comments: Bronchial egophony Abdominal: General: Bowel sounds are normal. Palpations: Abdomen is soft. Musculoskeletal: General: Normal range of motion. Comments: Some persistent pain in shoulder but improved. Radicular sx only intermittent Skin: General: Skin is warm and dry. Neurological: Mental Status: She is alert and oriented to person, place, and time. Psychiatric: Mood and Affect: Mood normal. Behavior: Behavior normal. LABS: ASSESSMENT/PLAN: 1. Cervical radiculopathy - ICD9: 723.4, ICD10: M54.12 (primary diagnosis) Stable - Gabapentin continued 2. Primary hypertension - ICD9: 401.9, ICD10: I10 - Controlled - Recommend ho (more content not included)... [facility] 03-28-2024 History of Present illness Narrative This is a 48 year old female who presents today with: Patient presents with: Back Pain: Medication follow up HISTORY OF PRESENT ILLNESS: Marquita Omalley is a 48 year old female. Patient presents with: Back Pain: Medication follow up Feeling better. Shoulder is better. Didn't sleep well last night because fell asleep on couch. Didn't take trazodone but when she takes it, it is effective. Blood pressure improved. Dull Headache with head ache. Left arm painful and tingling intermittent. Gabapentin increase helps. Down left arm & 4-5 fingers. Stopped Seeing chiropractor. He told her that C5-6 is bulging. Also affecting C6-7. Pain in Left ridge of shoulder hurts this morning. Upper left back into bicep and down to 4th and 5th fingers intermittent. Getting Stim, ultrasound, and traction. Icing and using biofreeze, also using TENS unit Cough for last couple weeks. PAST MEDICAL HISTORY: PAST MEDICAL HISTORY Diagnosis Date Anxiety Arthritis Chest pain Depression Ear infection Migraines Obesity, Class II, BMI 35-39.9 02/20/2019 PTSD (post-traumatic stress disorder) Sciatica UTI (lower urinary tract infection) PAST SURGICAL HISTORY Procedure Laterality Date ABDOMINAL SURGERY HX APPENDECTOMY 1982 APPENDECTOMY HX BACK SURGERY HX BREAST SURGERY HX COLONOSCOPY SCREENING 02/13/2022 10 year next colonoscopy 2031 COLPOPEXY VAGINAL INTRAPERITONEAL APPROACH 01/23/2019 uterosacral ligament fixation FRACTURE SURGERY LIG/TRNSXJ FLP TUBE ABDL/VAG APPR UNI/BI 06/2007 MAMMO MAMMOGRAM 07/20/2010 OTHER lumbar spinal fusion L5-S1 PAST SURGICAL HISTORY OF 09/2008 Micro Disectomy L5S1 PAST SURGICAL HISTORY OF Left 2013 Left wrist surgery POST COLPORRHAPHY RECTOCELE W/WO PERINEORRHAPHY 01/23/2019 posterior repair REDUCTION OF LARGE BREAST 09/2006 Bilateral SKIN BIOPSY HX SLING OPER STRES INCONTINENCE 01/23/2019 TVT exact TONSILLECTOMY HX VAGINAL HYSTERECTOMY VAGINAL HYSTERECTOMY UTERUS 250 GM/< 01/23/2019 tubes and ovaries remain ALLERGIES Benadryl [Diphenhydramine], Lyrica [Pregabalin], Seasonal Allergies, and Sulfa (Sulfonamide Antibiotics) MEDICATIONS Current Outpatient Medications Medication Sig traZODone (DESYREL) 150 mg tablet Take 1 tablet by mouth daily at bedtime. famotidine (PEPCID) 20 mg tablet Take 1 tablet by mouth two times a day as needed. gabapentin (NEURONTIN) 600 mg tablet Take 1 tablet by mouth three times a day for 90 days. fluticasone-salmeterol (ADVAIR DISKUS) 250-50 mcg/dose inhaler Inhale 1 Puff as instructed two times a day. Rinse and gargle mouth after use with water. albuterol HFA (PROVENTIL HFA, VENTOLIN HFA) 90 mcg/actuation inhaler Inhale 2 Puffs as instructed four times a day as needed. No current facility-administered medications for this visit. FAMILY HISTORY Problem Relation Age of Onset Allergies Mother Anesthesia Mother Headache Mother Obesity Mother Hypertension Father Heart Father Obesity Sister Allergies Sister Headache Sister Diabetes Maternal Grandmother Emphysema Maternal Grandmother Breast Cancer Maternal Grandmother Emphysema Maternal Grandfather Alcohol/Drug Paternal Grandfather Headache Daughter other (Pneumonia) Daughter Headache Daughter Headache Son other (RSV) Son Psychiatry Maternal Uncle Suicide Social History Tobacco Use Smoking status: Former Current packs/day: 0.00 Types: Cigarettes Quit date: 08/03/2005 Years since quittin.6 Smokeless tobacco: Never Vaping Use Vaping status: Never Used Substance Use Topics Alcohol use: Not Currently Comment: Rarely Drug use: No EXAM: BP 120/76 Pulse 97 Resp 16 Wt 88 kg (194 lb) LMP 01/03/2019 (Exact Date) SpO2 97% BMI 33.30 kg/m PHYSICAL EXAM: Physical Exam Constitutional: Appearance: Normal appearance. HENT: Head: Normocephalic. Cardiovascular: Rate and Rhythm: Normal rate and regular rhythm. Pulses: Normal pulses. Heart sounds: Normal heart sounds. Pulmonary: Effort: Pulmonary effort is normal. Breath sounds: Normal breath sounds. Comments: Bronchial egophony Abdominal: General: Bowel sounds are normal. Palpations: Abdomen is soft. Musculoskeletal: General: Normal range of motion. Comments: Some persistent pain in shoulder but improved. Radicular sx only intermittent Skin: General: Skin is warm and dry. Neurological: Mental Status: She is alert and oriented to person, place, and time. Psychiatric: Mood and Affect: Mood normal. Behavior: Behavior normal. LABS: ASSESSMENT/PLAN: 1. Cervical radiculopathy - ICD9: 723.4, ICD10: M54.12 (primary diagnosis) Stable - Gabapentin continued 2. Primary hypertension - ICD9: 401.9, ICD10: I10 - Controlled - Recommend home blood pressure monitoring, to bring results to next visit - Encouraged sodium restriction, DASH or Mediterranean diet - Recommend regular aerobic exercise 3. Acute bronchitis, unspecified organism - ICD9: 466.0, ICD10: J20.9 Acute flare - DOXYCYCLINE HYCLATE 100 MG TABLET 2 x day for 10 days 4. Vaginal yeast infection - ICD9: 112.1, ICD10: B37.31 If needed - FLUCONAZOLE 150 MG TABLET Discussed treatment plan and patient voices understanding. Patient's questions answered appropriately. Medications and potential side effects were discussed and patient voices understanding. Return to the office as scheduled or as needed for worsening/no improvement. Remedios Pepper APRN.CAREER SERVICES OFFICER documented in this encounter [facility] 03-17-[address] - 03/17/2024 9:20 AM EST Nutrition Action Plan 1. Protein: Continue to strive for 79 g protein per day. Eat protein first at all meals. Lean meats, low fat/part skim dairy products, peanut butter, eggs, beans. 2. Eat 4 small meals per day or 3 meals and 1-2 small snacks for additional protein 3. Fluids: 64 oz per day, minimum. No carbonation, no caffeine, no calories, no alcohol. 4. Vitamin/minerals: continue bariatric fusion complete chewable MVIs (2 in the AM, 2 in the PM) 5. Exercise: strive for daily activity - combine strength training and cardio for best workouts. Goal is 30 minutes 5-6x per week. 6. Practice these: Eat in this order protein first, vegetable and fruit second and whole grain carbohydrates last. * Separate eating and drinking by 30 minutes * Chew your food 20-30x per bite * Meals should last 30 minutes. 7. Track meals and snacks with an radha; aim for 6372-0381 calories per day Follow Up on 05/02 at 11:30 AM documented in this encounter [facility] 03-17-2024 History of Present illness Narrative [facility] Nutrition Therapy: Virtual Consult - Re-assessment I have communicated my name and active licensure. The patient s identity and physical location were verified at the time of this visit. Either the patient or their legal architectural representative has been informed of the risks and benefits of -- and alternatives to -- treatment through a remote evaluation and consents to proceed with the evaluation remotely. Nutrition Diagnosis: Altered Gastrointestinal Tract Function, related to, S/P bariatric surgery, as evidenced by patient report and past surgical history and Overweight/obesity, related to, food/nutrition - related knowledge deficit, as evidenced by BMI above normative standard for age and gender RECOMMENDED MALNUTRITION DIAGNOSIS: NO MALNUTRITION IDENTIFIED NUTRITION CARE PLAN: Nutrition Intervention 03/17/2024: 1. Protein: Continue to strive for 79 g protein per day. Eat protein first at all meals. Lean meats, low fat/part skim dairy products, peanut butter, eggs, beans. 2. Eat 4 small meals per day or 3 meals and 1-2 small snacks for additional protein 3. Fluids: 64 oz per day, minimum. No carbonation, no caffeine, no calories, no alcohol. 4. Vitamin/minerals: continue bariatric fusion complete chewable MVIs (2 in the AM, 2 in the PM) 5. Exercise: strive for daily activity - combine strength training and cardio for best workouts. Goal is 30 minutes 5-6x per week. 6. Practice these: Eat in this order protein first, vegetable and fruit second and whole grain carbohydrates last. * Separate eating and drinking by 30 minutes * Chew your food 20-30x per bite * Meals should last 30 minutes. 7. Track meals and snacks with an radha; aim for 1070-1972 calories per day Nutrition Monitoring & Evaluation: BMI <30 Need for Follow up: 1 year post op PROGRESS: 10 months post op LSG (Paulette) Net weight loss 62 lbs (250 lbs initial) Pre-surgery weight: 254 pounds 30 % TWL weight loss higher than expected 15 pounds weight loss since last assessment (203 lbs) Desired Weight: 145 lbs Diet recall indicates a consistent meal pattern with regular meals and snacks. Patient tolerates Phase V diet plan with minimal complaints. She reports a lack of hunger, which limits her frequency of intake and overall calories. She confirms to eat slowly and separates fluids from foods as recommended. Patient meets the recommended 150+ minutes per week physical activity, but strength training component is missing. ~1000 calories/day Inadequate ~55 gm protein intake/day Inadequate >64 oz fluid intake/day meets recommendations, but coffee not recommended Consistent with appropriate vitamin/minerals Meets recommendations Labs reveal no new labs to review Resting Metabolic Rate: 1466 Energy needs for weight loss:4080-2212 calories per day (15-20 kcal/kg CBW) Protein needs: 79 grams protein per day (1.2 g/kg IBW) Nutrition Intervention Quan Lincoln 11/23/23 1. Continue to take all recommended vitamin/minerals: Bariatric Fusion complete chewables (2 in the AM, 2 in the PM) MET 2. Protein goal: 79 grams protein/day IN PROGRESS 3. Fluid goal: 64 ounces per day (no carbonation, caffeine, calories, alcohol) IN PROGRESS 4. Exercise goal: continue a combination of cardio and strength training with a goal of 150+ minutes total per week IN PROGRESS 5. Practice mindful eating habits-take small portions, eat slowly, chew thoroughly MET 6. 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 Malnutrition Screening Significant unintentional weight loss? No Eating less than 75% of usual intake for more than 2 weeks? No Potential Signs of Inflammation: no identifiable sources Education Materials Provided: None this visit READINESS TO LEARN Cognitive ability: Alert and oriented Motivation to learn: Eager Family support: Unable to assess - Family not present Instruction provided to: Patient Patient learns best by: Multiple Methods Factors affecting learning: None Physical limitations affecting learning: None Likelihood of Adherence: High Referred by: Paulette CORDOVA Billing Type: Re-assess/15 min 2 units SIGNATURE: Mushtaq [address] RD PATIENT NAME: Marquita Omalley DATE: March 17, 2024 TIME: 9:19 AM documented in this encounter [facility] 03-07-2024 Instructions Remedios Pepper APRN.CNP - 03/07/2024 8:26 AM EDT 1) Increase gabapentin to 600 mg 3 x day 2) Follow up in 3 weeks documented in this encounter [facility] 03-07-2024 History of Present illness Narrative This is a 48 year old female who presents today with: Patient presents with: Follow Up: 2 week cerical radiculopathy HISTORY OF PRESENT ILLNESS: Marquita Omalley is a 48 year old female. Patient presents with: Follow Up: 2 week cerical radiculopathy Blood pressure up. Has had a lot of caffeine today. Headache with head ache. Left arm painful and tingling. Gabapentin helps. Down left arm & 4-5 fingers. Seeing chiropractor for past three weeks. He told her that C5-6 is bulging. Also affecting C6-7. Pain in Left ridge of shoulder and upper left back into bicep and down to 4th and 5th fingers. Getting Stim, ultrasound, and traction. Icing and using biofreeze, also using TENS unit Started about 3+ weeks ago. Uncle was dying and she was having to lift and move him. No specific injury. Touch of this here and there but never like this. Sharp shooting, deep ache. 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 Constant pain for 2 weeks. Can't get away from the pain. 08/21. PAST MEDICAL HISTORY: PAST MEDICAL HISTORY Diagnosis Date Anxiety Arthritis Chest pain Depression Ear infection Migraines Obesity, Class II, BMI 35-39.9 02/20/2019 PTSD (post-traumatic stress disorder) Sciatica UTI (lower urinary tract infection) PAST SURGICAL HISTORY Procedure Laterality Date ABDOMINAL SURGERY HX APPENDECTOMY 1982 APPENDECTOMY HX BACK SURGERY HX BREAST SURGERY HX COLONOSCOPY SCREENING 02/13/2022 10 year next colonoscopy 2031 COLPOPEXY VAGINAL INTRAPERITONEAL APPROACH 01/23/2019 uterosacral ligament fixation FRACTURE SURGERY LIG/TRNSXJ FLP TUBE ABDL/VAG APPR UNI/BI 06/2007 MAMMO MAMMOGRAM 07/20/2010 OTHER lumbar spinal fusion L5-S1 PAST SURGICAL HISTORY OF 09/2008 Micro Disectomy L5S1 PAST SURGICAL HISTORY OF Left 2013 Left wrist surgery POST COLPORRHAPHY RECTOCELE W/WO PERINEORRHAPHY 01/23/2019 posterior repair REDUCTION OF LARGE BREAST 09/2006 Bilateral SKIN BIOPSY HX SLING OPER STRES INCONTINENCE 01/23/2019 TVT exact TONSILLECTOMY HX VAGINAL HYSTERECTOMY VAGINAL HYSTERECTOMY UTERUS 250 GM/< 01/23/2019 tubes and ovaries remain ALLERGIES Benadryl [Diphenhydramine], Lyrica [Pregabalin], Seasonal Allergies, and Sulfa (Sulfonamide Antibiotics) MEDICATIONS Current Outpatient Medications Medication Sig gabapentin (NEURONTIN) 300 mg capsule Take 1 capsule by mouth three times a day for 90 days. fluticasone-salmeterol (ADVAIR DISKUS) 250-50 mcg/dose inhaler Inhale 1 Puff as instructed two times a day. Rinse and gargle mouth after use with water. albuterol HFA (PROVENTIL HFA, VENTOLIN HFA) 90 mcg/actuation inhaler Inhale 2 Puffs as instructed four times a day as needed. traZODone (DESYREL) 150 mg tablet Take 150 mg by mouth daily at bedtime. famotidine (PEPCID) 20 mg tablet Take 1 tablet by mouth two times a day as needed. No current facility-administered medications for this visit. FAMILY HISTORY Problem Relation Age of Onset Allergies Mother Anesthesia Mother Headache Mother Obesity Mother Hypertension Father Heart Father Obesity Sister Allergies Sister Headache Sister Diabetes Maternal Grandmother Emphysema Maternal Grandmother Breast Cancer Maternal Grandmother Emphysema Maternal Grandfather Alcohol/Drug Paternal Grandfather Headache Daughter other (Pneumonia) Daughter Headache Daughter Headache Son other (RSV) Son Psychiatry Maternal Uncle Suicide Social History Tobacco Use Smoking status: Former Current packs/day: 0.00 Types: Cigarettes Quit date: 08/03/2005 Years since quittin.6 Smokeless tobacco: Never Vaping Use Vaping status: Never Used Substance Use Topics Alcohol use: Not Currently Comment: Rarely Drug use: No EXAM: BP 150/90 Pulse 82 Resp 16 Wt 88.9 kg (196 lb) LMP 01/03/2019 (Exact Date) SpO2 97% BMI 33.64 kg/m PHYSICAL EXAM: Physical Exam Musculoskeletal: General: Normal range of motion. Comments: No palpable pain cervical pain or along either side of cervical spine Distribution of radiating pain C5-6 Sensation slightly impaired- tingling Radial pulse 2+ Flexion cervical spine full, ext. 15 degrees, side to side 30 degrees, moderate rotation Negative [place] Skin: General: Skin is warm and dry. Neurological: Mental Status: She is oriented to person, place, and time. Psychiatric: Mood and Affect: Mood normal. Behavior: Behavior normal. ASSESSMENT/PLAN: 1. Chronic insomnia - ICD9: 780.52, ICD10: F51.04 (primary diagnosis) Stable on trazodone - TRAZODONE 150 MG TABLET 2. Gastroesophageal reflux disease without esophagitis - ICD9: 530.81, ICD10: K21.9 - Stable on famotidine - FAMOTIDINE 20 MG TABLET 3. Cervical radiculopathy - ICD9: 723.4, ICD10: M54.12 Some improvement on exam - GABAPENTIN 600 MG TABLET TID increased from 300 mg 3 x day 4. Primary hypertension - ICD9: 401.9, ICD10: I10 - Controlled - Recommend home blood pressure monitoring, to bring results to next visit - Encouraged sodium restriction, DASH or Mediterranean diet - Recommend regular aerobic exercise Discussed treatment plan and patient voices understanding. Patient's questions answered appropriately. Medications and potential side effects were discussed and patient voices understanding. Return to the office as scheduled or as needed for worsening/no improvement. Remedios Pepper APRN.CNP documented in this encounter [facility] 02-26-2024 History of Present illness Narrative Patient was scheduled for a nutrition appointment today. The patient did not check into their scheduled appointment. I sent the patient a [employer] message encouraging them to reschedule their appointment by calling [phone]. documented in this encounter [facility] 02-22-2024 Instructions Remedios Pepper APRN.CNP - 02/22/2024 9:30 AM EDT 1) Prednisone 50 mg daily for 5 days 2) Gabapentin 300 mg 3 x day 3) Follow up in 2 weeks documented in this encounter [facility] 02-22-2024 History of Present illness Narrative This is a 48 year old female who presents today with: Patient presents with: Neck Pain Pain (Shoulder Pain): left HISTORY OF PRESENT ILLNESS: Marquita Omalley is a 48 year old female. Patient presents with: Neck Pain Pain (Shoulder Pain): left Seeing chiropractor for past two weeks. He told her that C5-6 is bulging. Also affecting C6-7. Pain in Left ridge of shoulder and upper left back into bicep and down to 4th and 5th fingers. Getting Stim, ultrasound, and traction. Icing and using biofreeze, also using TENS unit Started about 2+ weeks ago. Uncle was dying and she was having to lift and move him. No specific injury. Touch of this here and there but never like this. Sharp shooting, deep ache. 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 Constant pain for 2 weeks. Can't get away from the pain. -11/20. Was recently given muscle relaxants and can't take them during the day when working. PAST MEDICAL HISTORY: PAST MEDICAL HISTORY Diagnosis Date Anxiety Arthritis Chest pain Depression Ear infection Migraines Obesity, Class II, BMI 35-39.9 02/20/2019 PTSD (post-traumatic stress disorder) Sciatica UTI (lower urinary tract infection) PAST SURGICAL HISTORY Procedure Laterality Date ABDOMINAL SURGERY HX APPENDECTOMY 1982 APPENDECTOMY HX BACK SURGERY HX BREAST SURGERY HX COLONOSCOPY SCREENING 02/13/2022 10 year next colonoscopy 2031 COLPOPEXY VAGINAL INTRAPERITONEAL APPROACH 01/23/2019 uterosacral ligament fixation FRACTURE SURGERY LIG/TRNSXJ FLP TUBE ABDL/VAG APPR UNI/BI 06/2007 MAMMO MAMMOGRAM 07/20/2010 OTHER lumbar spinal fusion L5-S1 PAST SURGICAL HISTORY OF 09/2008 Micro Disectomy L5S1 PAST SURGICAL HISTORY OF Left 2013 Left wrist surgery POST COLPORRHAPHY RECTOCELE W/WO PERINEORRHAPHY 01/23/2019 posterior repair REDUCTION OF LARGE BREAST 09/2006 Bilateral SKIN BIOPSY HX SLING OPER STRES INCONTINENCE 01/23/2019 TVT exact TONSILLECTOMY HX VAGINAL HYSTERECTOMY VAGINAL HYSTERECTOMY UTERUS 250 GM/< 01/23/2019 tubes and ovaries remain ALLERGIES Benadryl [Diphenhydramine], Lyrica [Pregabalin], Seasonal Allergies, and Sulfa (Sulfonamide Antibiotics) MEDICATIONS Current Outpatient Medications Medication Sig cyclobenzaprine (FLEXERIL) 10 mg tablet Take 1 tablet by mouth three times a day as needed for muscle spasm or pain for up to 10 days. fluticasone-salmeterol (ADVAIR DISKUS) 250-50 mcg/dose inhaler Inhale 1 Puff as instructed two times a day. Rinse and gargle mouth after use with water. famotidine (PEPCID) 20 mg tablet Take 1 tablet by mouth two times a day as needed. albuterol HFA (PROVENTIL HFA, VENTOLIN HFA) 90 mcg/actuation inhaler Inhale 2 Puffs as instructed four times a day as needed. traZODone (DESYREL) 150 mg tablet Take 150 mg by mouth daily at bedtime. loratadine (CLARITIN) 10 mg tablet Take 1 tablet by mouth once daily for 5 days. No current facility-administered medications for this visit. FAMILY HISTORY Problem Relation Age of Onset Allergies Mother Anesthesia Mother Headache Mother Obesity Mother Hypertension Father Heart Father Obesity Sister Allergies Sister Headache Sister Diabetes Maternal Grandmother Emphysema Maternal Grandmother Breast Cancer Maternal Grandmother Emphysema Maternal Grandfather Alcohol/Drug Paternal Grandfather Headache Daughter other (Pneumonia) Daughter Headache Daughter Headache Son other (RSV) Son Psychiatry Maternal Uncle Suicide Social History Tobacco Use Smoking status: Former Current packs/day: 0.00 Types: Cigarettes Quit date: 08/03/2005 Years since quittin.5 Smokeless tobacco: Never Vaping Use Vaping status: Never Used Substance Use Topics Alcohol use: Not Currently Comment: Rarely Drug use: No EXAM: BP 114/70 Pulse 88 Wt 87.5 kg (193 lb) LMP 01/03/2019 (Exact Date) SpO2 97% BMI 33.13 kg/m PHYSICAL EXAM: Physical Exam Musculoskeletal: General: Normal range of motion. Comments: No palpable pain cervical pain or along either side of cervical spine Distribution of radiating pain C5-6 Sensation slightly impaired- tingling Radial pulse 2+ Flexion cervical spine full, ext. 5 degrees, side to side 30 degrees, moderate rotation Negative [place] Skin: General: Skin is warm and dry. Neurological: Mental Status: She is oriented to person, place, and time. Psychiatric: Mood and Affect: Mood normal. Behavior: Behavior normal. LABS: ASSESSMENT/PLAN: 1. Cervical radiculopathy - ICD9: 723.4, ICD10: M54.12 C5-6 distribution - PREDNISONE 50 MG TABLET for 5 days - GABAPENTIN 300 MG CAPSULE 3 x day - reassess in 2 weeks Discussed treatment plan and patient voices understanding. Patient's questions answered appropriately. Medications and potential side effects were discussed and patient voices understanding. Return to the office as scheduled or as needed for worsening/no improvement. Remedios Pepper APRN.RENETTA documented in this encounter [facility] 02-08-2024 History of Present illness Narrative Chief Complaint Patient presents with: Acute Visit: Nasal congestion, facial pressure and pain, cough x 1 week Shoulder Injury: Left x 2 weeks, sees chiropractor, asking for a muscle relaxer, no injury HPI Marquita Omalley is a 48 year old female who presents here today for Above Complaints.. Sinusitis-nasal congestion, ears popping and crackling, facial pressure and pain, cough-has been dark green-most recently has been thick but clear. Denies fever. Has tried Dayquil, Alkaseltzer, Sudafed, allergy medicine, Mucinex. Occasionally will dry things up just a bit but doesn't last. Shoulder pain-left x2 weeks. Thinks this is coming from her neck. Seeing a chiropractor. Left side of her neck and into shoulder is very tight. Is seeing massotherapist. Wondering if she could try a muscle relaxer. Has a lot of stress and has been overwhelmed lately. Has tried TENS unit. Has tried a couple holistic things but these weren't helpful. Heat, Ice, Tylenol, ibuprofen. Past medical history, appointments, medications, allergies reviewed. Previous Medical History PAST MEDICAL HISTORY Diagnosis Date Anxiety Arthritis Chest pain Depression Ear infection Migraines Obesity, Class II, BMI 35-39.9 02/20/2019 PTSD (post-traumatic stress disorder) Sciatica UTI (lower urinary tract infection) Previous Surgical History PAST SURGICAL HISTORY Procedure Laterality Date ABDOMINAL SURGERY HX APPENDECTOMY 1982 APPENDECTOMY HX BACK SURGERY HX BREAST SURGERY HX COLONOSCOPY SCREENING 02/13/2022 10 year next colonoscopy 2031 COLPOPEXY VAGINAL INTRAPERITONEAL APPROACH 01/23/2019 uterosacral ligament fixation FRACTURE SURGERY LIG/TRNSXJ FLP TUBE ABDL/VAG APPR UNI/BI 06/2007 MAMMO MAMMOGRAM 07/20/2010 OTHER lumbar spinal fusion L5-S1 PAST SURGICAL HISTORY OF 09/2008 Micro Disectomy L5S1 PAST SURGICAL HISTORY OF Left 2013 Left wrist surgery POST COLPORRHAPHY RECTOCELE W/WO PERINEORRHAPHY 01/23/2019 posterior repair REDUCTION OF LARGE BREAST 09/2006 Bilateral SKIN BIOPSY HX SLING OPER STRES INCONTINENCE 01/23/2019 TVT exact TONSILLECTOMY HX VAGINAL HYSTERECTOMY VAGINAL HYSTERECTOMY UTERUS 250 GM/< 01/23/2019 tubes and ovaries remain Family History FAMILY HISTORY Problem Relation Age of Onset Allergies Mother Anesthesia Mother Headache Mother Obesity Mother Hypertension Father Heart Father Obesity Sister Allergies Sister Headache Sister Diabetes Maternal Grandmother Emphysema Maternal Grandmother Breast Cancer Maternal Grandmother Emphysema Maternal Grandfather Alcohol/Drug Paternal Grandfather Headache Daughter other (Pneumonia) Daughter Headache Daughter Headache Son other (RSV) Son Psychiatry Maternal Uncle Suicide Patient Allergies ALLERGIES Allergen Reactions Benadryl [Diphenhyd* Intolerance, Other: See Comments Jittery, shaking, skin feels like its crawling, hyper Lyrica [Pregabalin] Other: See Comments Elevates blood pressure Seasonal Allergies Other: See Comments Mostly Pollen-stuffy nose,headache Sulfa (Sulfonamide * Hives Current Medications Current Outpatient Medications on File Prior to Visit Medication Sig fluticasone-salmeterol (ADVAIR DISKUS) 250-50 mcg/dose inhaler Inhale 1 Puff as instructed two times a day. Rinse and gargle mouth after use with water. albuterol HFA (PROVENTIL HFA, VENTOLIN HFA) 90 mcg/actuation inhaler Inhale 2 Puffs as instructed four times a day as needed. traZODone (DESYREL) 150 mg tablet Take 150 mg by mouth daily at bedtime. predniSONE (DELTASONE) 20 mg tablet Take 2 tablets by mouth once daily. escitalopram oxalate (LEXAPRO) 10 mg tablet Taking one tablet daily. famotidine (PEPCID) 20 mg tablet Take 1 tablet by mouth two times a day as needed. loratadine (CLARITIN) 10 mg tablet Take 1 tablet by mouth once daily for 5 days. ondansetron (ZOFRAN) 4 mg tablet Take 1 tablet by mouth every 8 hours as needed. CPAP Annual supplies: auto titrating PAP device 5-10 cmH2O suitable mask per pt preference, chin strap, head gear, humidity, tubing, lifetime supplies. G47.33 ALISHA ARIPiprazole (ABILIFY) 5 mg tablet Take 5 mg by mouth daily at bedtime. No current facility-administered medications on file prior to visit. Social History Social History Tobacco Use Smoking status: Former Current packs/day: 0.00 Types: Cigarettes Quit date: 08/03/2005 Years since quittin.5 Smokeless tobacco: Never Vaping Use Vaping status: Never Used Substance Use Topics Alcohol use: Not Currently Comment: Rarely Drug use: No Review of Symptoms REVIEW OF SYSTEMS See HPI, otherwise negative EXAM: BP 118/78 (BP Site: Left Arm, BP Position: Sitting, BP Cuff Size: Regular Adult) Pulse 60 Temp 36.6 C (97.9 F) Resp 16 Wt 87.8 kg (193 lb 9.6 oz) LMP 01/03/2019 (Exact Date) SpO2 99% BMI 33.23 kg/m General Appearance: ill-appearing, alert, in no acute distress, well-hydrated, well nourished.. Head: Normocephalic, no masses, lesions, or abnormalities. Face tenderness. Eyes: Anicteric sclera. Pupils are equally round and reactive to light. Extraocular movements are intact. . Ears: External ears normal, canals clear. Nose/Sinuses: Nares normal, septum midline, mucosa normal, no drainage or sinus tenderness. Oropharynx: Lips, mucosa, and tongue normal, teeth and gums normal. Posterior pharynx mildly erythremic. Neck: Supple, no adenopathy; thyroid symmetric, normal size, no bruits. Lungs: Lungs clear to auscultation. No wheezing, rhonchi, rales.. Heart: RRR without murmur, gallop, or rubs. No ectopy. Lymph Nodes: No cervical lymphadenopathy and No supraclavicular lymphadenopathy. Psychiatric: pleasant, cooperative. Health Maintenance List Covid-19 Vaccine( - 2023- season) Never done Influenza Vaccine(1) due on 01/13/2024 Hepatitis B Vaccine(1 of 3 - 19+ 3-dose series) due on 09/18/2024 HIV Screening due on 09/18/2024 Mammogram Screening due on 09/18/2024 Annual PCP Team Chronic Disease Visit due on 10/14/2024 Diabetes Screening due on 2026 Lipid Screening due on 2028 DTaP,Tdap,Td Vaccine(2 - Td or Tdap) due on 02/20/2029 Colorectal Cancer Screening due on 02/14/2032 Spirometry Completed Hepatitis C Screening Completed Cervical Cancer Screening Discontinued Data reviewed Previous records, office notes ASSESSMENT/PLAN: 1. Neck pain on left side - ICD9: 723.1, ICD10: M54.2 (primary diagnosis) - CYCLOBENZAPRINE 10 MG TABLET - METHYLPREDNISOLONE 4 MG TABLETS IN A DOSE PACK 2. Acute pain of left shoulder - ICD9: 719.41, ICD10: M25.512 - CYCLOBENZAPRINE 10 MG TABLET - METHYLPREDNISOLONE 4 MG TABLETS IN A DOSE PACK 3. URI, acute - ICD9: 465.9, ICD10: J06.9 - Symptomatic treatment with prn analgesia - Supportive care with fluids and rest - declines medication for cough - AZITHROMYCIN 250 MG TABLET - METHYLPREDNISOLONE 4 MG TABLETS IN A DOSE PACK 4. Dulce vaginitis - ICD9: 112.1, ICD10: B37.31 - FLUCONAZOLE 150 MG TABLET 5. Acute non-recurrent pansinusitis - ICD9: 461.8, ICD10: J01.40 - Symptomatic treatment with prn analgesia - Supportive care with fluids and rest - declines medication for cough - AZITHROMYCIN 250 MG TABLET - METHYLPREDNISOLONE 4 MG TABLETS IN A DOSE PACK Meghana Wharton APRN.RENETTA documented in this encounter [facility] 12-20-2023 History of Present illness Narrative I have communicated my name and active licensure. The patient's identity and physical location were verified at the time of this visit. Either the patient or their legal architectural representative has been informed of the risks and benefits of -- and alternatives to -- treatment through a remote evaluation and consents to proceed with the evaluation remotely. Name: Marquita Omalley Index Surgery Date of Surgery: 05/11/2023 Surgeon: Mary Beth Caldwell MD Surgical Procedure: LAPAROSCOPIC LONGITUDINAL GASTRECTOMY, GASTRIC RESTRICTIVE PROCEDURE Pre-surgical weight: 115.7 kg (255 lb) Override Index Surgery Information? No Other Bariatric Surgeries None Visit: 7 months Today's Visit: Wt 90.3 kg (199 lb) BMI 34.16 kg/m2 BMI 34.16 kg/(m^2) Last Visit: Wt: 92.1 kg (203 lb) BMI: 34.84 kg/(m^2) Total weight loss: 25.4 kg (56 lb) [place] weight: 66.1 kg (145 lb 10.6 oz) Excess weight: 49.6 kg (109 lb 5.4 oz) % of excess body weight lost: 25.4 kg (56 lb) (51.22% of excess weight loss) COMPLICATIONS SINCE LAST VISIT?: NONE DIET INTAKE: tolerates Phase V diet See recent Rd notes from November -: egg -L: salad w chicken and lettuce and onion -D: grilled chicken and vegetables -snacks: crab -beverages: most days does well with water; advised to avoid skipping meals and to try healthy protein shake as a meal replacement; also advised to avoid carbonated/sugary/caloric/alcoholi c beverages DAILY SUPPLEMENTS: Calcium: Calcium Citrate w/ vitamin D (1200 - 1500mg) Multivitamin & Minerals: Bariatric MVI with 45 mg Iron Supplement: included in multi-vitamin Vitamin B12: included in multivitamin Vitamin D3: included in multi-vitamin Other: N/A EXERCISE: nothing set in stone; tries to walk at least 3 x a week; has a treadmill at home and also has some weights Current Outpatient Medications Medication Sig fluticasone-salmeterol (ADVAIR DISKUS) 250-50 mcg/dose inhaler Inhale 1 Puff as instructed two times a day. Rinse and gargle mouth after use with water. predniSONE (DELTASONE) 20 mg tablet Take 2 tablets by mouth once daily. escitalopram oxalate (LEXAPRO) 10 mg tablet Taking one tablet daily. famotidine (PEPCID) 20 mg tablet Take 1 tablet by mouth two times a day as needed. loratadine (CLARITIN) 10 mg tablet Take 1 tablet by mouth once daily for 5 days. ondansetron (ZOFRAN) 4 mg tablet Take 1 tablet by mouth every 8 hours as needed. albuterol HFA (PROVENTIL HFA, VENTOLIN HFA) 90 mcg/actuation inhaler Inhale 2 Puffs as instructed four times a day as needed. traZODone (DESYREL) 150 mg tablet Take 150 mg by mouth daily at bedtime. CPAP Annual supplies: auto titrating PAP device 5-10 cmH2O suitable mask per pt preference, chin strap, head gear, humidity, tubing, lifetime supplies. G47.33 ALISHA ARIPiprazole (ABILIFY) 5 mg tablet Take 5 mg by mouth daily at bedtime. No current facility-administered medications for this visit. REVIEW OF SYSTEMS: Denies abdominal pain, constipation, diarrhea, melena, hematochezia PHYSICAL EXAM: Wt 90.3 kg (199 lb) LMP 01/03/2019 (Exact Date) BMI 34.16 kg/m General: alert and appropriate, in no distress, well-hydrated, well nourished, happy, smiling, interactive, and pleasant lady Skin: no rash noted Head: normocephalic, no abnormality or lesion noted Eyes: no injection and visual acuity is grossly normal Respiratory: breathing non-labored Assessment A/P: 48 y/o lady status post: Laparoscopic sleeve gastrectomy, Esophagogastroscopy and Liver biopsy done on: 05/11/[address] Caldwell -had recent (11/23/23) visit with BMI/RD/Warren Lincoln -here for 6 month postop-due for labs-had recent (10/04) lipid, Vit D, cmp, cbc; check remaining -follow up 05/06 for one year postop DISPOSITION: Return Other April to Post-op follow up/ individual office visit EDUCATION: Encouraged to continue with healthy lifestyle changes and incorporate cardiovascular and resistance training, Discussed weight loss expectations after bariatric and metabolic surgery, or Discussed importance of protein intake as per the RDN note REFERRALS: N/A LABS: Today: See Epic Orders In 6 months: CBC W DIFF, CMP, Vitamin B1, Vitamin B12, Folate, PTH Intact, Vitamin D25OH, Iron/TIBC/Ferritin, Lipids, HBA1C, and See Epic Orders Elana Noel MD I spent a total of 30 minutes on the date of the service which included preparing to see the patient, [id number] patient care, obtaining and/or reviewing separately obtained history, counseling and educating the patient/family/caregiver, ordering medications, tests, or procedures, and care coordination (not separately reported). (OTHER): -11/23/23 OV BMI/RD/Warren Lincoln -08/20/23 OV BMI/Nhungty documented in this encounter [facility] 12-20-2023 Instructions Elana Noel MD - 12/20/2023 10:25 AM EDT Today's Visit: Wt 90.3 kg (199 lb) BMI 34.16 kg/m2 BMI 34.16 kg/(m^2) Last Visit: Wt: 92.1 kg (203 lb) BMI: 34.84 kg/(m^2) Total weight loss: 25.4 kg (56 lb) [place] weight: 66.1 kg (145 lb 10.6 oz) Excess weight: 49.6 kg (109 lb 5.4 oz) % of excess body weight lost: 25.4 kg (56 lb) (51.22% of excess weight loss) documented in this encounter [facility] 11-23-[address] - 11/23/2023 10:40 AM EDT Nutrition Action Plan 1. Continue to take all recommended vitamin/minerals: Bariatric Fusion complete chewables (2 in the AM, 2 in the PM) 2. Protein goal: 79 grams protein/day 3. Fluid goal: 64 ounces per day (no carbonation, caffeine, calories, alcohol) 4. Exercise goal: continue a combination of cardio and strength training with a goal of 150+ minutes total per week 5. Practice mindful eating habits-take small portions, eat slowly, chew thoroughly 6. Track meals and snacks with an radha; aim for 8427-0544 calories per day Follow Up at 1 year post op; call [phone] to schedule documented in this encounter [facility] 11-23-2023 History of Present illness Narrative AMBULATORY PATIENT EDUCATION NOTE- Shared [facility] I have communicated my name and active licensure. The patient s identity and physical location were verified at the time of this visit. Either the patient or their legal architectural representative has been informed of the risks and benefits of -- and alternatives to -- treatment through a remote evaluation and consents to proceed with the evaluation remotely. Patient reports weight (as measured by home scale) of 203 pounds. TOPIC: LIFE STYLE CHANGES: Post-op weight loss surgery: Diet and Exercise READINESS TO LEARN COGNITIVE ABILITY: Alert and oriented MOTIVATION TO LEARN: Interested FAMILY SUPPORT: Unable to assess - Family not present INSTRUCTION PROVIDED TO: Patient PATIENT LEARNS BEST BY: Multiple Methods FACTORS AFFECTING LEARNING: None PHYSICAL LIMITATIONS AFFECTING LEARNING: None LEARNING RESPONSE DIAGNOSIS: Altered Gastrointestinal Tract Function, related to, S/P bariatric surgery, as evidenced by patient report and past surgical history and Overweight/obesity, related to, food/nutrition - related knowledge deficit, as evidenced by BMI above normative standard for age and gender. Malnutrition Screening Significant unintentional weight loss? No Eating less than 75% of usual intake for more than 2 weeks? No METHOD OF INSTRUCTION: Individual instruction & Group class instruction PATIENT / FAMILY RESPONSE: Nutrition outcome statement: Expect attention to diet to assist with weight management and minimum 1200 calories/2 liters of fluids per day. 6.5 months post op LSG ([facility]) Net weight loss 47 lbs (250 lbs initial) Pre-surgery weight: 254 lbs 19 % T[facility] weight loss less than expected 17 lb weight loss since last session (220 lbs) Diet recall indicates a consistent meal pattern with regular meals and snacks. Patient tolerates Phase V diet plan without complaints. She confirms to eat slowly and separates fluids from foods as recommended. ~1000 calories/day inadequate ~55 gm protein intake/day inadequate 64+ oz fluid intake/day meets recommendations Consistent with appropriate vitamin/minerals (4 Bariatric Fusion complete chewables per day) meets recommendations Labs - slightly elevated glucose Exercise - walking and strength training 4x a week for 30-90 minutes meets recommendations Resting Metabolic Rate: 1534 Energy needs for weight loss: 9642-2754 calories per day (15-20 kcal/kg CBW) Protein needs: 79 grams protein per day (1.2 g/kg IBW kg) Reviewed nutrition principles of: 1. Continue to take all recommended vitamin/minerals: Bariatric Fusion complete chewables (2 in the AM, 2 in the PM) 2. Protein goal: 79 grams protein/day 3. Fluid goal: 64 ounces per day (no carbonation, caffeine, calories, alcohol) 4. Exercise goal: continue a combination of cardio and strength training with a goal of 150+ minutes total per week 5. Practice mindful eating habits-take small portions, eat slowly, chew thoroughly 6. Track meals and snacks with an radha; aim for 6724-4477 calories per day Nutrition Monitoring & Evaluation:BMI <30 Criteria: weight check Need for Follow up: 1 year post op Appointment Start Time: 8 AM Appointment End Time: 8:50 AM Time Spent on Consult: 50 minutes - Group Mushtaq Lincoln RD documented in this encounter [facility] 10-15-2023 Instructions Brigette Martin APRN.RENETTA - 10/15/2023 1:36 PM EDT Start the doxy. Prednisone burst. Start the advair. Rinse mouth after using. Let us know if no better/worsening. documented in this encounter [facility] 10-15-2023 History of Present illness Narrative This is a 48 year old female who presents today with: Patient presents with: Cough HISTORY OF PRESENT ILLNESS: Marquita Omalley is a 48 year old female. Patient presents with: Cough Cough started shortly after last office visit. She refers that she started decongestants because of some fluid in her ears. Then she ended up with bilateral eye infection -- saw eye dr and on drops. Cough has progressively gotten worse. Has been going on for the last 3 weeks. Did spirometry, which was normal, but cough wasn't bad then. Cough is non-productive. Does not feel ill. Taking Allergy medicine. Mucinex. Inhaler is not helping. PAST MEDICAL HISTORY: PAST MEDICAL HISTORY Diagnosis Date Anxiety Arthritis Chest pain Depression Ear infection Migraines Obesity, Class II, BMI 35-39.9 02/20/2019 PTSD (post-traumatic stress disorder) Sciatica UTI (lower urinary tract infection) PAST SURGICAL HISTORY Procedure Laterality Date ABDOMINAL SURGERY HX APPENDECTOMY 1982 APPENDECTOMY HX BACK SURGERY HX BREAST SURGERY HX COLONOSCOPY SCREENING 02/13/2022 10 year next colonoscopy 2031 COLPOPEXY VAGINAL INTRAPERITONEAL APPROACH 01/23/2019 uterosacral ligament fixation FRACTURE SURGERY LIG/TRNSXJ FLP TUBE ABDL/VAG APPR UNI/BI 06/2007 MAMMO MAMMOGRAM 07/20/2010 OTHER lumbar spinal fusion L5-S1 PAST SURGICAL HISTORY OF 09/2008 Micro Disectomy L5S1 PAST SURGICAL HISTORY OF Left 2013 Left wrist surgery POST COLPORRHAPHY RECTOCELE W/WO PERINEORRHAPHY 01/23/2019 posterior repair REDUCTION OF LARGE BREAST 09/2006 Bilateral SKIN BIOPSY HX SLING OPER STRES INCONTINENCE 01/23/2019 TVT exact TONSILLECTOMY HX VAGINAL HYSTERECTOMY VAGINAL HYSTERECTOMY UTERUS 250 GM/< 01/23/2019 tubes and ovaries remain ALLERGIES Benadryl [Diphenhydramine], Lyrica [Pregabalin], Seasonal Allergies, and Sulfa (Sulfonamide Antibiotics) MEDICATIONS Current Outpatient Medications Medication Sig famotidine (PEPCID) 20 mg tablet Take 1 tablet by mouth two times a day as needed. loratadine (CLARITIN) 10 mg tablet Take 1 tablet by mouth once daily for 5 days. albuterol HFA (PROVENTIL HFA, VENTOLIN HFA) 90 mcg/actuation inhaler Inhale 2 Puffs as instructed four times a day as needed. traZODone (DESYREL) 150 mg tablet Take 150 mg by mouth daily at bedtime. escitalopram oxalate (LEXAPRO) 10 mg tablet Taking one tablet daily. ondansetron (ZOFRAN) 4 mg tablet Take 1 tablet by mouth every 8 hours as needed. CPAP Annual supplies: auto titrating PAP device 5-10 cmH2O suitable mask per pt preference, chin strap, head gear, humidity, tubing, lifetime supplies. G47.33 ALISHA ARIPiprazole (ABILIFY) 5 mg tablet Take 5 mg by mouth daily at bedtime. No current facility-administered medications for this visit. FAMILY HISTORY Problem Relation Age of Onset Allergies Mother Anesthesia Mother Headache Mother Obesity Mother Hypertension Father Heart Father Obesity Sister Allergies Sister Headache Sister Diabetes Maternal Grandmother Emphysema Maternal Grandmother Breast Cancer Maternal Grandmother Emphysema Maternal Grandfather Alcohol/Drug Paternal Grandfather Headache Daughter other (Pneumonia) Daughter Headache Daughter Headache Son other (RSV) Son Psychiatry Maternal Uncle Suicide Social History Tobacco Use Smoking status: Former Types: Cigarettes Quit date: 08/03/2005 Years since quittin.2 Smokeless tobacco: Never Vaping Use Vaping Use: Never used Substance Use Topics Alcohol use: Not Currently Comment: Rarely Drug use: No EXAM: BP 118/68 Pulse 68 Resp 16 Wt 96.6 kg (213 lb) LMP 01/03/2019 (Exact Date) SpO2 97% BMI 36.54 kg/m PHYSICAL EXAM: General Appearance: Well appearing, alert, in no acute distress, well-hydrated, well nourished.. Skin: Skin color, texture, turgor normal, no suspicious rashes or lesions. Head: Normocephalic, no masses, lesions, tenderness or abnormalities. Eyes: Anicteric sclera. Pupils are equally round and reactive to light. Extraocular movements are intact. . Ears: External ears normal, canals clear. Normal TMs bilaterally. Oropharynx: Lips, mucosa, and tongue normal, teeth and gums normal, oropharynx normal. Neck: Supple, no adenopathy Lungs: Lungs clear to auscultation. No wheezing, rhonchi, rales.. Heart: RRR without murmur, gallop, or rubs. No ectopy. Neurologic: Gait normal. Reflexes normal and symmetric. Sensation grossly intact. ASSESSMENT/PLAN: 1. Acute cough - ICD9: 786.2, ICD10: R05.1 Suspect exacerbation of asthma. Will start advair. Burst of prednisone. Cover with doxy. - FLUTICASONE 250 MCG-SALMETEROL 50 MCG/DOSE BLISTR POWDR FOR INHALATION - DOXYCYCLINE HYCLATE 100 MG TABLET - PREDNISONE 20 MG TABLET Notify provider if no better/worsening. Discussed treatment plan and patient voices understanding. Patient's questions answered appropriately. Medications and potential side effects were discussed and patient voices understanding. Return to the office as scheduled or as needed for worsening/no improvement. Brigette Martin APRN.CAREER SERVICES OFFICER documented in this encounter [facility] 10-05-2023 History of Present illness Narrative PULM FUNCTION SMARTBLOCK: Provider: Brigette Martin APRN.CAREER SERVICES OFFICER Assisting Tech: Tanja Beckford RPFT Spirometry w/BD: 1 documented in this encounter [facility] 09-24-2023 Telephone encounter Note Orders faxed to [facility]. [facility] 09-24-2023 Miscellaneous Notes Orders faxed to [facility]. Can we please fax lab orders over to [facility]. documented in this encounter [facility] 09-24-2023 Telephone encounter Note Can we please fax lab orders over to [facility]. [facility] 09-19-2023 Instructions Brigette Martin APRN.CNP - 09/19/2023 11:34 AM EDT Same medications. Schedule spirometry. Labs w/ next lab draw (fasting -- 10-12 hours). Health Promotion: - Eat healthy -- go to [email or web address] to get started - Have a yearly physical - Mammogram yearly after age 40 - Get at least 30 minutes of physical activity daily - Get at least 7 to 8 hours of sleep each night - Reach and maintain a healthy weight - Get help to quit or don't start smoking - Limit alcohol use to one drink or less - Do not use illegal drugs or misuse prescription drugs - Wear a helmet when riding a bike and wear protective gear for sports - Wear a seatbelt in cars and not text and drive - Wear sunscreen documented in this encounter [facility] 09-19-2023 History of Present illness Narrative This is a 47 year old female who presents today with: Patient presents with: Yearly Exam HISTORY OF PRESENT ILLNESS: Marquita Omalley is a 47 year old female. Patient presents with: Yearly Exam Pt presents today for yearly exam. REVIEW OF SYSTEMS GENERAL: No weight loss, malaise or fevers/chills HEENT: No changes in hearing or vision. Gets headaches with barometric pressure changes and allergies. NECK: Negative for lumps, goiter, pain and significant neck swelling RESPIRATORY: Negative for cough, hemoptysis, wheezing, dyspnea or shortness of breath CARDIOVASCULAR: Negative for chest pain, leg swelling, orthopnea, or palpitations GI: No nausea, vomiting, or diarrhea/constipation. No hematochezia/melena. +heartburn -- takes pepcid twice daily, which helps. Colonoscopy 2021. : No history of dysuria, frequency or incontinence MUSCULOSKELETAL: Negative for joint pain or swelling. SKIN: Negative for lesions, rash, and itching ENDOCRINE: Negative for cold or heat intolerance, polyuria, polydipsia and goiter NEURO: No history of headaches, syncope, paralysis, seizures or tremors Anxiety: Follows with counseling center. Has been controlled. Hoping to ween of medications. Insomnia: Usually helps with sleep. Refers that she cannot sleep if she doesn't take it. Asthma: Hasn't needed to use for months. ALISHA: Compliant with therapy. Gets better rest. Feels more rested. PAST MEDICAL HISTORY: PAST MEDICAL HISTORY Diagnosis Date Anxiety Arthritis Chest pain Depression Ear infection Migraines Obesity, Class II, BMI 35-39.9 02/20/2019 PTSD (post-traumatic stress disorder) Sciatica UTI (lower urinary tract infection) PAST SURGICAL HISTORY Procedure Laterality Date ABDOMINAL SURGERY HX APPENDECTOMY 1982 APPENDECTOMY HX BACK SURGERY HX BREAST SURGERY HX COLONOSCOPY SCREENING 02/13/2022 10 year next colonoscopy 2031 COLPOPEXY VAGINAL INTRAPERITONEAL APPROACH 01/23/2019 uterosacral ligament fixation FRACTURE SURGERY LIG/TRNSXJ FLP TUBE ABDL/VAG APPR UNI/BI 06/2007 MAMMO MAMMOGRAM 07/20/2010 OTHER lumbar spinal fusion L5-S1 PAST SURGICAL HISTORY OF 09/2008 Micro Disectomy L5S1 PAST SURGICAL HISTORY OF Left 2013 Left wrist surgery POST COLPORRHAPHY RECTOCELE W/WO PERINEORRHAPHY 01/23/2019 posterior repair REDUCTION OF LARGE BREAST 09/2006 Bilateral SKIN BIOPSY HX SLING OPER STRES INCONTINENCE 01/23/2019 TVT exact TONSILLECTOMY HX VAGINAL HYSTERECTOMY VAGINAL HYSTERECTOMY UTERUS 250 GM/< 01/23/2019 tubes and ovaries remain ALLERGIES Benadryl [Diphenhydramine], Lyrica [Pregabalin], Seasonal Allergies, and Sulfa (Sulfonamide Antibiotics) MEDICATIONS Current Outpatient Medications Medication Sig escitalopram oxalate (LEXAPRO) 10 mg tablet Taking one tablet daily. famotidine (PEPCID) 20 mg tablet Take 1 tablet by mouth two times a day as needed. loratadine (CLARITIN) 10 mg tablet Take 1 tablet by mouth once daily for 5 days. ondansetron (ZOFRAN) 4 mg tablet Take 1 tablet by mouth every 8 hours as needed. Ursodiol 500 mg tablet Take 0.5 tablets by mouth two times a day. Dr Friend albuterol HFA (PROVENTIL HFA, VENTOLIN HFA) 90 mcg/actuation inhaler Inhale 2 Puffs as instructed four times a day as needed. traZODone (DESYREL) 150 mg tablet Take 150 mg by mouth daily at bedtime. CPAP Annual supplies: auto titrating PAP device 5-10 cmH2O suitable mask per pt preference, chin strap, head gear, humidity, tubing, lifetime supplies. G47.33 ALISHA ARIPiprazole (ABILIFY) 5 mg tablet Take 5 mg by mouth daily at bedtime. No current facility-administered medications for this visit. FAMILY HISTORY Problem Relation Age of Onset Allergies Mother Anesthesia Mother Headache Mother Obesity Mother Hypertension Father Heart Father Obesity Sister Allergies Sister Headache Sister Diabetes Maternal Grandmother Emphysema Maternal Grandmother Breast Cancer Maternal Grandmother Emphysema Maternal Grandfather Alcohol/Drug Paternal Grandfather Headache Daughter other (Pneumonia) Daughter Headache Daughter Headache Son other (RSV) Son Psychiatry Maternal Uncle Suicide Social History Tobacco Use Smoking status: Former Types: Cigarettes Quit date: 08/03/2005 Years since quittin.1 Smokeless tobacco: Never Vaping Use Vaping Use: Never used Substance Use Topics Alcohol use: Not Currently Comment: Rarely Drug use: No EXAM: BP 104/72 Pulse 65 Resp 16 Ht 164.5 cm (5' 4.76) Wt 98.9 kg (218 lb) LMP 01/03/2019 (Exact Date) SpO2 97% BMI 36.54 kg/m PHYSICAL EXAM: General Appearance: Well appearing, alert, in no acute distress, well-hydrated, well nourished.. Skin: Skin color, texture, turgor normal, no suspicious rashes or lesions. Head: Normocephalic, no masses, lesions, tenderness or abnormalities. Eyes: Anicteric sclera. Pupils are equally round and reactive to light. Extraocular movements are intact. Ears: External ears normal, canals clear. Normal TMs bilaterally. Oropharynx: Lips, mucosa, and tongue normal, teeth and gums normal, oropharynx normal. Neck: Supple, no adenopathy; thyroid symmetric, normal size, no bruits. Lungs: Lungs clear to auscultation. No wheezing, rhonchi, rales.. Heart: RRR without murmur, gallop, or rubs. No ectopy. Abdomen: Abdomen soft, non-tender. Bowel sounds normal. No masses, organomegaly. Extremities: No deformities, edema, skin discoloration, clubbing or cyanosis. Good capillary refill. Neurologic: Gait normal. ASSESSMENT/PLAN: 1. Wellness examination - ICD9: V70.0, ICD10: Z00.00 (primary diagnosis) - Health Promotion: - Eat healthy -- go to [employer] to get started - Have a yearly physical - Mammogram yearly after age 40 - Get at least 30 minutes of physical activity daily - Get at least 7 to 8 hours of sleep each night - Reach and maintain a healthy weight - Get help to quit or don't start smoking - Limit alcohol use to one drink or less - Do not use illegal drugs or misuse prescription drugs - Wear a helmet when riding a bike and wear protective gear for sports - Wear a seatbelt in cars and not text and drive - Wear sunscreen 2. Mild intermittent asthma without complication - ICD9: 493.90, ICD10: J45.20 - Mild intermittent asthma stable - Continue current medications - Avoidance of triggers recommended - SPIROMETRY - BASELINE AND POST DILATOR 3. Obstructive sleep apnea (adult) (pediatric) - ICD9: 327.23, ICD10: G47.33 Compliant with CPAP. 4. Anxiety with depression - ICD9: 300.4, ICD10: F41.8 Stable. Follows w/ the counseling center. 5. Chronic insomnia - ICD9: 780.52, ICD10: F51.04 Controlled with trazodone. Discussed treatment plan and patient voices understanding. Patient's questions answered appropriately. Medications and potential side effects were discussed and patient voices understanding. Return to the office as scheduled or as needed for worsening/no improvement. Brigette Martin APRN.RENETTA documented in this encounter [facility] 09-19-2023 Note Formatting of this n ote might be different from the original. September 19, 2023 PID: [id number] Marquita Omalley [address] [place] [address] Dear Ms. Omalley, We are pleased to inform you that the results of your recent breast imaging exam on 09/19/2023 are normal. Early detection of cancer is very important. We also understand recommendations regarding breast cancer screening are controversial. Please discuss with your primary care provider which strategy is best for you and whether a mammogram is right for you. Your imaging studies and report will be kept on file at [facility] as part of your permanent medical record and are available for your continuing care. Thank you for allowing us to help in meeting your health care needs. Sincerely, Dr. Oviedo Interpreting Radiologist [facility] (Normal over 40) [facility] 09-19-2023 Miscellaneous Notes September 19, 2023 PID: [id number] Marquita Omalley [address] [place] [address] Dear Ms. Omalley, We are pleased to inform you that the results of your recent breast imaging exam on 09/19/2023 are normal. Early detection of cancer is very important. We also understand recommendations regarding breast cancer screening are controversial. Please discuss with your primary care provider which strategy is best for you and whether a mammogram is right for you. Your imaging studies and report will be kept on file at [facility] as part of your permanent medical record and are available for your continuing care. Thank you for allowing us to help in meeting your health care needs. Sincerely, Dr. Oviedo Interpreting Radiologist [facility] (Normal over 40) documented in this encounter [facility] 09-19-2023 History of Present illness Narrative Radiology Service Progress Note PATIENT NAME: Marquita Omalley DATE OF SERVICE: September 19, 2023 TIME: 8:01 AM PATIENT IDENTITY VERIFICATION COMPLETED USING TWO (2) IDENTIFIERS: Name and Date of confirmed by patient verbally. FALL SCREENING: Has the patient had 2 falls in the last year or 1 fall with injury or currently using an Ambulatory Assistive Device (Walker, Cane, Wheelchair, Crutches, etc.)? No PATIENT GENDER DATA: Female. status: : No status: NO. PATIENT RELEVANT IMPLANT DATA REVIEWED: Not Applicable PATIENT PRESENTS WITH AN IMPLANTABLE OR ATTACHED CONVEYOR BELT REPAIRER: No RADIOLOGY DEPARTMENT: Mammography PERIPHERAL IV DATA: Not applicable SIGNED BY: Reyna Mcduffie September 19, 2023 8:01 AM documented in this encounter [facility] 09-04-2023 Instructions Brigette Martin APRN.RENETTA - 09/04/2023 2:51 PM EDT Start an OTC allergy pill. Start flonase (fluticasone) nasal spray. Schedule mammogram. Let us know if no better/worsening. documented in this encounter [facility] 09-04-2023 History of Present illness Narrative This is a 47 year old female who presents today with: Patient presents with: Acute Visit: Sneezing, sinuses feel swollen, sore throat, headache, itcy/watery eyes HISTORY OF PRESENT ILLNESS: Marquita Omalley is a 47 year old female. Patient presents with: Acute Visit: Sneezing, sinuses feel swollen, sore throat, headache, itcy/watery eyes Pt presents today with complaint of out of control allergy symptoms. Unsure what she can take since having the gastric sleeve. She had gastric sleeve. She is aware that she cannot take ibuprofen/nsaids. Reports: Sneezing, sinuses, sore throat, headache, itchy/watery eyes. PAST MEDICAL HISTORY: PAST MEDICAL HISTORY Diagnosis Date Anxiety Arthritis Chest pain Depression Ear infection Migraines Obesity, Class II, BMI 35-39.9 02/20/2019 PTSD (post-traumatic stress disorder) Sciatica UTI (lower urinary tract infection) PAST SURGICAL HISTORY Procedure Laterality Date ABDOMINAL SURGERY HX APPENDECTOMY 1982 APPENDECTOMY HX BACK SURGERY HX BREAST SURGERY HX COLONOSCOPY SCREENING 02/13/2022 10 year next colonoscopy 2031 COLPOPEXY VAGINAL INTRAPERITONEAL APPROACH 01/23/2019 uterosacral ligament fixation FRACTURE SURGERY LIG/TRNSXJ FLP TUBE ABDL/VAG APPR UNI/BI 06/2007 MAMMO MAMMOGRAM 07/20/2010 OTHER lumbar spinal fusion L5-S1 PAST SURGICAL HISTORY OF 09/2008 Micro Disectomy L5S1 PAST SURGICAL HISTORY OF Left 2013 Left wrist surgery POST COLPORRHAPHY RECTOCELE W/WO PERINEORRHAPHY 01/23/2019 posterior repair REDUCTION OF LARGE BREAST 09/2006 Bilateral SKIN BIOPSY HX SLING OPER STRES INCONTINENCE 01/23/2019 TVT exact TONSILLECTOMY HX VAGINAL HYSTERECTOMY VAGINAL HYSTERECTOMY UTERUS 250 GM/< 01/23/2019 tubes and ovaries remain ALLERGIES Benadryl [Diphenhydramine], Lyrica [Pregabalin], Seasonal Allergies, and Sulfa (Sulfonamide Antibiotics) MEDICATIONS Current Outpatient Medications Medication Sig famotidine (PEPCID) 20 mg tablet Take 1 tablet by mouth two times a day as needed. albuterol HFA (PROVENTIL HFA, VENTOLIN HFA) 90 mcg/actuation inhaler Inhale 2 Puffs as instructed four times a day as needed. traZODone (DESYREL) 150 mg tablet Take 150 mg by mouth daily at bedtime. CPAP Annual supplies: auto titrating PAP device 5-10 cmH2O suitable mask per pt preference, chin strap, head gear, humidity, tubing, lifetime supplies. G47.33 ALISHA ARIPiprazole (ABILIFY) 5 mg tablet Take 5 mg by mouth daily at bedtime. escitalopram oxalate (LEXAPRO) 10 mg tablet Taking one tablet daily. pantoprazole DR (PROTONIX) 20 mg tablet TAKE 1 TABLET BY MOUTH EVERY DAY loratadine (CLARITIN) 10 mg tablet Take 1 tablet by mouth once daily for 5 days. ondansetron (ZOFRAN) 4 mg tablet Take 1 tablet by mouth every 8 hours as needed. Ursodiol 500 mg tablet Take 0.5 tablets by mouth two times a day. Dr Andrew No current facility-administered medications for this visit. FAMILY HISTORY Problem Relation Age of Onset Allergies Mother Anesthesia Mother Headache Mother Obesity Mother Hypertension Father Heart Father Obesity Sister Allergies Sister Headache Sister Diabetes Maternal Grandmother Emphysema Maternal Grandmother Breast Cancer Maternal Grandmother Emphysema Maternal Grandfather Alcohol/Drug Paternal Grandfather Headache Daughter other (Pneumonia) Daughter Headache Daughter Headache Son other (RSV) Son Psychiatry Maternal Uncle Suicide Social History Tobacco Use Smoking status: Former Types: Cigarettes Quit date: 08/03/2005 Years since quittin.0 Smokeless tobacco: Never Vaping Use Vaping Use: Never used Substance Use Topics Alcohol use: Not Currently Comment: Rarely Drug use: No EXAM: BP 118/90 Pulse 74 Resp 16 Wt 99.3 kg (219 lb) LMP 01/03/2019 (Exact Date) SpO2 96% BMI 37.59 kg/m PHYSICAL EXAM: General Appearance: Well appearing, alert, in no acute distress, well-hydrated, well nourished.. Skin: Skin color, texture, turgor normal, no suspicious rashes or lesions. Head: Normocephalic, no masses, lesions, tenderness or abnormalities. Eyes: Anicteric sclera. Pupils are equally round and reactive to light. Extraocular movements are intact. . Ears: External ears normal, canals clear, Normal TMs bilaterally. Oropharynx: Lips, mucosa, and tongue normal, teeth and gums normal, oropharynx normal. Neck: Supple, no adenopathy Lungs: Lungs clear to auscultation. No wheezing, rhonchi, rales.. Heart: RRR without murmur, gallop, or rubs. No ectopy. Neurologic: Gait normal. ASSESSMENT/PLAN: 1. Seasonal allergic rhinitis due to pollen - ICD9: 477.0, ICD10: J30.1 Encouraged to start [id number] allergy medicine, such as loratadine. She can also start a steroid nasal spray. Notify provider if no improvement or any worsening. Discussed treatment plan and patient voices understanding. Patient's questions answered appropriately. Medications and potential side effects were discussed and patient voices understanding. Return to the office as scheduled or as needed for worsening/no improvement. Brigette Martin APRN.CAREER SERVICES OFFICER documented in this encounter [facility] 08-20-2023 Instructions Elana Noel MD - 08/20/2023 11:45 AM EDT Visit: 3 months Today's Visit: Wt 98.9 kg (218 lb) BMI 37.42 kg/m2 BMI 37.42 kg/(m^2) Last Visit: Wt: 99.8 kg (220 lb) BMI: 37.76 kg/(m^2) Total weight loss: 16.8 kg (37 lb) [place] weight: 66.1 kg (145 lb 10.6 oz) Excess weight: 49.6 kg (109 lb 5.4 oz) % of excess body weight lost: 16.8 kg (37 lb) (33.84% of excess weight loss) documented in this encounter [facility] 08-20-2023 History of Present illness Narrative I have communicated my name and active licensure. The patient's identity and physical location were verified at the time of this visit. Either the patient or their legal architectural representative has been informed of the risks and benefits of -- and alternatives to -- treatment through a remote evaluation and consents to proceed with the evaluation remotely. Name: Marquita Omalley Index Surgery Date of Surgery: 05/11/2023 Surgeon: Mary Beth Caldwell MD Surgical Procedure: LAPAROSCOPIC LONGITUDINAL GASTRECTOMY, GASTRIC RESTRICTIVE PROCEDURE Pre-surgical weight: 115.7 kg (255 lb) Override Index Surgery Information? No Visit: 3 months Today's Visit: Wt 98.9 kg (218 lb) BMI 37.42 kg/m2 BMI 37.42 kg/(m^2) Last Visit: Wt: 99.8 kg (220 lb) BMI: 37.76 kg/(m^2) Total weight loss: 16.8 kg (37 lb) [place] weight: 66.1 kg (145 lb 10.6 oz) Excess weight: 49.6 kg (109 lb 5.4 oz) % of excess body weight lost: 16.8 kg (37 lb) (33.84% of excess weight loss) COMPLICATIONS SINCE LAST VISIT?: NONE DIET INTAKE: tolerates Phase V diet -see recent Nail Machine Operator notes -B: protein shake, then has water until 11 am, then has a snack -snack: 2 HB eggs; pm: turkey breast w cheese -L: -D: veg beef soup -snacks: -beverages: doing well with water and Propel and V8 energy with no caffeine and little sugar-advised to avoid skipping meals and to try healthy protein shake as a meal replacement; also advised to avoid carbonated/sugary/caloric/alcoholi c beverages DAILY SUPPLEMENTS: Calcium: Calcium Citrate w/ vitamin D (1200 - 1500mg) Multivitamin & Minerals: Bariatric MVI with 45 mg of iron Iron Supplement: included in multi-vitamin Vitamin B12: included in multivitamin Vitamin D3: included in multi-vitamin Other: N/A EXERCISE: mostly walking-started light weight training this weekend-w 3 pound weights Current Outpatient Medications Medication Sig pantoprazole DR (PROTONIX) 20 mg tablet TAKE 1 TABLET BY MOUTH EVERY DAY famotidine (PEPCID) 20 mg tablet Take 1 tablet by mouth two times a day as needed. loratadine (CLARITIN) 10 mg tablet Take 1 tablet by mouth once daily for 5 days. ondansetron (ZOFRAN) 4 mg tablet Take 1 tablet by mouth every 8 hours as needed. Ursodiol 500 mg tablet Take 0.5 tablets by mouth two times a day. Dr Friend albuterol HFA (PROVENTIL HFA, VENTOLIN HFA) 90 mcg/actuation inhaler Inhale 2 Puffs as instructed four times a day as needed. traZODone (DESYREL) 150 mg tablet Take 150 mg by mouth daily at bedtime. CPAP Annual supplies: auto titrating PAP device 5-10 cmH2O suitable mask per pt preference, chin strap, head gear, humidity, tubing, lifetime supplies. G47.33 ALISHA ARIPiprazole (ABILIFY) 5 mg tablet Take 5 mg by mouth daily at bedtime. buPROPion XL (WELLBUTRIN XL) 300 mg 24 hr tablet Take 300 mg by mouth once daily. escitalopram oxalate (LEXAPRO) 20 mg tablet Taking one tablet daily. No current facility-administered medications for this visit. REVIEW OF SYSTEMS: Denies abdominal pain, constipation, diarrhea, melena, hematochezia PHYSICAL EXAM: Wt 98.9 kg (218 lb) LMP 01/03/2019 (Exact Date) BMI 37.42 kg/m General: alert and appropriate, in no distress, well-hydrated, well nourished, happy, smiling, interactive, and pleasant lady Skin: no rash noted Head: normocephalic, no abnormality or lesion noted Eyes: no injection and visual acuity is grossly normal Respiratory: breathing non-labored Assessment A/P: 47 y/o lady status post: Laparoscopic sleeve gastrectomy, Esophagogastroscopy and Liver biopsy done on: 05/11/[address] Caldwell -has upcoming appt 11/23/23 with Nail Machine Operator/Chucky DISPOSITION: Return 3 month to Post-op follow up/ individual office visit EDUCATION: Encouraged to continue with healthy lifestyle changes and incorporate cardiovascular and resistance training, Discussed weight loss expectations after bariatric and metabolic surgery, or Discussed importance of protein intake as per the RDN note REFERRALS: N/A LABS: Today: See Epic Orders In 3 months: CBC W DIFF, CMP, Vitamin B1, Vitamin B12, Folate, PTH Intact, Vitamin D25OH, Iron/TIBC/Ferritin, Lipids, HBA1C, and See Epic Orders I spent a total of 30 minutes on the date of the service which included preparing to see the patient, [id number] patient care, obtaining and/or reviewing separately obtained history, counseling and educating the patient/family/caregiver, and care coordination (not separately reported). Elana Noel MD (OTHER): -08/10/23 OV BMI/Nutrition/Chucky documented in this encounter [facility] 04-27-2023 Miscellaneous Notes BMI SPECIALTY CARE COORDINATION SURGERY PRE-OP EDUCATION NOTE AMBULATORY PATIENT EDUCATION NOTE TOPIC: SURVIVAL SKILLS: Complication Prevention Diet Pain Management Safety Precautions READINESS TO LEARN COGNITIVE ABILITY: Alert and oriented MOTIVATION TO LEARN: Eager FAMILY SUPPORT: High - Very involved in pt care INSTRUCTION PROVIDED TO: Patient PATIENT LEARNS BEST BY: Individual Instruction Written Instruction - Hand-outs FACTORS AFFECTING LEARNING: None PHYSICAL LIMITATIONS AFFECTING LEARNING: None LEARNING RESPONSE DIAGNOSIS: Morbid Obesity METHOD OF INSTRUCTION: Individual instruction PATIENT / FAMILY RESPONSE: Verbalizes understanding of: INFECTION MANAGEMENT-Signs and symptoms of an infection and importance of contacting the physician PAIN MANAGEMENT-Effective strategies to manage pain in addition to pain medication POST-OPERATIVE INSTRUCTIONS-Correct actions to take to reduce postoperative complications PRE-OPERATIVE INSTRUCTIONS-Correct action to take to follow pre-operative instructions FOLLOW-UP PLAN: Patient instructed to call with any further issues SUPPLEMENTAL MATERIAL: Your Surgical Guide REFERRAL (RECOMMENDATION): None Surgery Pre-Op Education Note in Nurse Visit Education video modules viewed by the patient: Yes Postop prescriptions provided to the patient: Yes Postop Surgeon Visit scheduled: Yes On-Call & Clinic Phone Number given to the Patient: Yes Pre surgery checklist reviewed: Yes Patient Instructions for the Liquid Diet: Day Before Surgery - Liquid Diet Instruction Review 1. Last Protein shake should be before 6 pm. 2. It is important that you stay hydrated - 64 ounces of fluid per day. 3. Drink a 28-32 ounce bottle of a regular (not sugar free) sport drink (Gatorade, Powerade, etc.) the night prior to surgery. If the sport drinks aren t tolerable, may substitute with no sugar added - no pulp juice - apple, cranberry, lemonade, white grape or orange. Day of Surgery Clear Liquid Diet Drink 12-20 ounces of a regular sport drink (or juice as above) stop liquids 2 hours before scheduled arrival time. Other Instructions Reviewed: Patient verbalized understanding to hold Escitalopram (Lexapro) and Phentermine now. Stop ursodiol plan to resume taking two weeks after surgery when advised by surgery team approximately two weeks after surgeyr Skin Preparation: Skin cleanse with antibacterial soap, Jenae, wound care, vitamin & nutrients, activity restrictions post op, discharge instructions & surgical guide, incentive spirometry;diet progression-blanquita phase I & II & 2wk liquid diet prior to surgery, activity level & pt responsibility during hospitalization. Sleep Apnea: Patient has sleep apnea? Yes. Reviewed with patient that it is important to bring their machine, mask and tubing to the hospital on the day of surgery. Patient instructed that they should wear their C-pap when arriving in room as they will have anesthesia on board that will make them sleep periodically throughout the remainder of the day of surgery. Following the first day, patient instructed that they should wear the C-pap in the hospital any time they are napping or sleeping. Explanation of the dangerous drops in oxygen level that can occur if C-pap is not applied day of surgery or subsequent days when napping or sleeping. Patient understands they are not to refuse to wear the treatment even if they feel it is uncomfortable as wearing C-pap is essential for their safety. Patient agrees to bring C-pap and wear it upon arrival from recovery room and when napping or sleeping. Yes. Do not take pain medication three hours before bedtime as it may cause breathing difficulty. If you are having pain at bedtime you may take two Extra Strength Tylenol. Rachel Nielsen RN documented in this encounter [facility] 04-26-[address] - 04/26/2023 2:47 PM EST Instructions for Liquid Diet before surgery Start the full liquid diet 2 weeks before surgery - Use only the approved protein shakes: 4.5 bottles/day Slim Fast Advanced Nutrition OR 5.5 packets/day Light Start [place] Breakfast Essentials mixed with 1% or skim milk OR 5 bottles/day Atkins Protein Shake (15 gm protein version) OR 4.5 bottles/day Boost Glucose Control OR 4.5 bottles/day OWYN (20 gm protein and 180 calories version) - Drink at least 64 oz of fluid per day (no calories, no caffeine, no carbonation) - Other clear liquids you can include: clear broth, sugar free jello or popsicles, decaffeinated coffee or tea, no sugar added flavoring packets such as Crystal Lite - Take a Super B Complex vitamin (75-100 mg of Thiamin) daily during the liquid diet 2. Day before surgery: - Finish your last protein shake before 6 pm - Drink at least 64 oz of fluid per day (no calories, no caffeine, no carbonation) - Drink 28-32 fl oz of regular sports drink (Gatorade, Powerade, etc.) 3. Day of surgery: - Drink 12-20 fl oz of regular sports drink - Stop drinking liquids 2 hours before scheduled arrival time 4. Advance diet as tolerated after surgery: - Phase 1- Clear liquids (only in the hospital) - Phase 2- Full liquids. Try to consume at least 60 grams of protein per day in the form of a liquid, high protein shake. Aim to drink 4-8 fl oz of protein shake 3 times per day. Try to drink at least 64 oz per day of water or other clear liquids between shakes. - Phase 3- Soft, high protein foods. Try to consume 3-4 oz of protein 3 times per day from poultry, beef, fish, seafood, eggs, cheese, Nigerian yogurt, cottage cheese, beans, lentils, tofu. Choose meat products that are tender, shredded and/or ground to increase tolerance. Remember to chew food well, eat slow, take small bites documented in this encounter [facility] 04-26-2023 History of Present illness Narrative I have communicated my name and active licensure. The patient's identity and physical location were verified at the time of this visit. Either the patient or their legal architectural representative has been informed of the risks and benefits of -- and alternatives to -- treatment through a remote evaluation and consents to proceed with the evaluation remotely. TOPIC: LIFE STYLE CHANGES: Pre-op weight loss surgery (LSG): Diet and Exercise Nutrition Intervention 04/26/2023: Instructions for Liquid Diet before surgery Start the full liquid diet 2 weeks before surgery - Use only the approved protein shakes: 4.5 bottles/day Slim Fast Advanced Nutrition OR 5.5 packets/day Light Start [place] Breakfast Essentials mixed with 1% or skim milk OR 5 bottles/day Atkins Protein Shake (15 gm protein version) OR 4.5 bottles/day Boost Glucose Control OR 4.5 bottles/day OWYN (20 gm protein and 180 calories version) - Drink at least 64 oz of fluid per day (no calories, no caffeine, no carbonation) - Other clear liquids you can include: clear broth, sugar free jello or popsicles, decaffeinated coffee or tea, no sugar added flavoring packets such as Crystal Lite - Take a Super B Complex vitamin (75-100 mg of Thiamin) daily during the liquid diet 2. Day before surgery: - Finish your last protein shake before 6 pm - Drink at least 64 oz of fluid per day (no calories, no caffeine, no carbonation) - Drink 28-32 fl oz of regular sports drink (Gatorade, Powerade, etc.) 3. Day of surgery: - Drink 12-20 fl oz of regular sports drink - Stop drinking liquids 2 hours before scheduled arrival time 4. Advance diet as tolerated after surgery: - Phase 1- Clear liquids (only in the hospital) - Phase 2- Full liquids. Try to consume at least 60 grams of protein per day in the form of a liquid, high protein shake. Aim to drink 4-8 fl oz of protein shake 3 times per day. Try to drink at least 64 oz per day of water or other clear liquids between shakes. - Phase 3- Soft, high protein foods. Try to consume 3-4 oz of protein 3 times per day from poultry, beef, fish, seafood, eggs, cheese, Nigerian yogurt, cottage cheese, beans, lentils, tofu. Choose meat products that are tender, shredded and/or ground to increase tolerance. Remember to chew food well, eat slow, take small bites CHANGES IN TREATMENT: Patient met goal(s): Partially Diagnosis: has not changed. Allergies: Benadryl [Diphenhydramine], Lyrica [Pregabalin], Seasonal Allergies, and Sulfa (Sulfonamide Antibiotics) Anthropometrics: Height: Last 1 Encounter Ht Readings: Date: Ht: 04/10/2023 162.6 cm (5' 4) Weight: Last 1 Encounter Wt Readings: Date: Wt: 04/10/2023 112.5 kg (248 lb) Body mass index is 42.57 kg/m . Resting Metabolic Rate: 1742 Malnutrition Screening Significant unintentional weight loss? No Eating less than 75% of usual intake for more than 2 weeks? No Nutritional status: Educational materials provided: none this visit READINESS TO LEARN Cognitive ability: Alert and oriented Motivation to learn: Interested Family support: Unable to assess - Family not present Instruction provided to: Patient Patient learns best by: Multiple Methods Factors affecting learning: None Physical limitations affecting learning: None Likelihood of Adherence: Moderate Patient participated in preop bariatric surgery shared nutrition appointment. Patient participated actively in group. She is scheduled for surgery on 05/11/23 and directed to start the pre-op diet 2 weeks before surgery. She will follow the full liquid diet and is using SlimFast protein shakes. Patient has all appropriate beverages and B complex supplement. Nutrition Diagnosis: Overweight/obesity, related to, decreased energy needs, as evidenced by BMI above normative standard for age and gender. PROGRESS: Nutrition Intervention (date of last encounter 04/10/23): Please call [phone], option 5. Leave a message for the navigation team when you are finished with all clearances (nutrition, psychology, medical, surgeon) 1.Starting ~3 weeks after surgery take 2 Bariatric Fusion chewable complete bariatric vitamin chews, twice daily. 2. Protein goal: 79 grams protein/day 3. Fluid goal: 64oz per day water. (no calories, no caffeine, no carbonation, no alcohol) 4. Exercise goal: 150-250 minutes combination cardio/strength training/week 5. Practice mindful eating habits-protein first, take small portions, eat slowly, chew thoroughly, and separate fluid from food 6. Start the full liquid diet (2) weeks prior to surgery using Slim Fast High Protein shakes per day, continue a minimum of 64 oz water per day during this time. No solid food. May have sugar free popsicle and sugar free jello -During the 2 week liquid diet before surgery include a daily Super B-Complex vitamin 7. Advance diet as tolerated after surgery. Use the Your Guide to Surgery for guidance and meal plans Preop weight goal: 239 lbs Nutrition Monitoring & Evaluation: Follow pre op diet and fluid guidelines Criteria: weight check Need for Follow up: 2 weeks post op NUTRITION THERAPY: TEACHING DIETITIAN NOTE OF PERSONAL INVOLVEMENT OF CARE. I have reviewed the progress note obtained and documented by the international marketing coordinator/trainee. I have discussed the case and management of the patient's nutrition therapy with the international marketing coordinator/trainee. The following comments revise or confirm relevant philip components of the international marketing coordinator's/trainee's note. Lakshmi Ribeiro RD Appointment Start Time: 1:00 PM Appointment End Time: 1:50 pm Time Spent on Consult: 50 minutes - Group SIGNATURE: Lakshmi Ribeiro RD PATIENT NAME: Marquita Omalley DATE: 04/26/2023 TIME: 9:34 AM PAGER: documented in this encounter [facility] 04-23-2023 Miscellaneous Notes [facility] SPECIALTY CARE COORDINATION SURGERY APPROVAL CALL Received e-mail confirmation of insurance approval for bariatric surgery.Pre-operative call placed to the patient, this RN spoke with patient and agreed upon a surgery date of May 10 2023. Surgical episode request sent to [facility] surgery scheduling. Patient understands that the surgery type is Sleeve Gastrectomy as approved by insurance. Creatinine level 0.77 Patient instructed to start pre-op 800 calorie total protein liquid diet high protein Slimfast (4.5) daily beginning 2 weeks prior to surgery. - Stop all ASA and NSAID products, [place] 3 fish oil, herbal products such as ginko etc. Stop vitamins EXCEPT B COMPLEX- take this up to the day before surgery - Medication List reviewed and patient will contact prescribing physician regarding use of while on pre-operative diet. - Patient denies use of estrogen products . Talk with your prescribing MD if you take the following - should be monitored closely during the preoperative liquid diet with most held at the start of the diet given the . ALL of these medications should AT LEAST be held the day prior to surgery. Actos Amaryl Glipizide Glucophage Metformin Anti-obesity medications - stop 1 week before surgery Phentermine Qsymia Contrave Vyvanse Diethylproprion Phendimetrazine Saxenda Wegovy SGLT2 inhibitors should be stopped 3-4 days before surgery - avoid using during the first weeks following bariatric surgery because of the risk of dehydration, Jardiance Farxiga Invokana Sleep apnea requiring treatment? Yes, Patient tolerating C-PAP and advised to bring C-PAP mask and tubing DOS. If you have been diagnosed with moderate/severe sleep apnea you must wear CPAP/BIPAP a minimum of 4 hours nightly 2 weeks before surgery,. It is very important to treat ALISHA pre op as well as continuing to use the CPAP post operatively- Do not stop using the machine without prior testing. Patient will require FMLA forms to be completed? No. - Jenae video assigned. - All questions and concerns addressed and patient verbalized understanding. - Patient case reviewed. All nutrition appointments completed, psychology clearance obtained, surgeon visit and procedure type verified, medical optimization obtained and all testing complete. Does patient have Con ABO? No, patient does not have Con ABO and it has been ordered. Rachel Nielsen RN documented in this encounter [facility] 04-10-[address] - 04/10/2023 8:27 AM EST Nutrition Action Plan Please call [phone], option 5. Leave a message for the navigation team when you are finished with all clearances (nutrition, psychology, medical, surgeon) 1.Starting ~3 weeks after surgery take 2 Bariatric Fusion chewable complete bariatric vitamin chews, twice daily. 2. Protein goal: 79 grams protein/day 3. Fluid goal: 64oz per day water. (no calories, no caffeine, no carbonation, no alcohol) 4. Exercise goal: 150-250 minutes combination cardio/strength training/week 5. Practice mindful eating habits-protein first, take small portions, eat slowly, chew thoroughly, and separate fluid from food 6. Start the full liquid diet (2) weeks prior to surgery using Slim Fast High Protein shakes per day, continue a minimum of 64 oz water per day during this time. No solid food. May have sugar free popsicle and sugar free jello -During the 2 week liquid diet before surgery include a daily Super B-Complex vitamin 7. Advance diet as tolerated after surgery. Use the Your Guide to Surgery for guidance and meal plans Preop weight goal: 239 lbs Follow Up as needed and 2 weeks prior to surgery documented in this encounter [facility] 04-10-2023 History of Present illness Narrative [facility] Nutrition Therapy: Virtual Consult - Re-assessment I have communicated my name and active licensure. The patient s identity and physical location were verified at the time of this visit. Either the patient or their legal architectural representative has been informed of the risks and benefits of -- and alternatives to -- treatment through a remote evaluation and consents to proceed with the evaluation remotely. Nutrition Diagnosis: Overweight/obesity, related to, food/nutrition - related knowledge deficit, as evidenced by BMI above normative standard for age and gender RECOMMENDED MALNUTRITION DIAGNOSIS: NO MALNUTRITION IDENTIFIED NUTRITION CARE PLAN: Nutrition Intervention 04/10/2023: Please call [phone], option 5. Leave a message for the navigation team when you are finished with all clearances (nutrition, psychology, medical, surgeon) 1.Starting ~3 weeks after surgery take 2 Bariatric Fusion chewable complete bariatric vitamin chews, twice daily. 2. Protein goal: 79 grams protein/day 3. Fluid goal: 64oz per day water. (no calories, no caffeine, no carbonation, no alcohol) 4. Exercise goal: 150-250 minutes combination cardio/strength training/week 5. Practice mindful eating habits-protein first, take small portions, eat slowly, chew thoroughly, and separate fluid from food 6. Start the full liquid diet (2) weeks prior to surgery using Slim Fast High Protein shakes per day, continue a minimum of 64 oz water per day during this time. No solid food. May have sugar free popsicle and sugar free jello -During the 2 week liquid diet before surgery include a daily Super B-Complex vitamin 7. Advance diet as tolerated after surgery. Use the Your Guide to Surgery for guidance and meal plans Preop weight goal: 239 lbs Nutrition Monitoring & Evaluation: 1-2 pound weight loss per week Need for Follow up: as needed and 2 weeks prior to surgery PROGRESS: Interval History: Patient seen today for a follow up nutrition appointment. She is currently preparing to undergo bariatric surgery, interested in LSG with Dr. Caldwell. Since last assessment, weight has decreased by 2 lbs. Diet recall reveals a consistent meal pattern with regular meals and snacks. Patient replaces 1 meal with a protein shake and uses the healthy plate model at meals as recommended. Protein intake is adequate with lean meats and protein supplements. Fluid intake is adequate with water as primary beverage choice, and she continues cutting down on soda pop as recommended. Patient meets recommended 150+ minutes physical activity with a combination of walking and light strength training. She plans to take Bariatric Fusion Complete Chewable MVIs post operatively. Patient confirms to eat slowly and separates fluids from foods as recommended. Patient meets the National Institutes of Health guidelines for weight loss surgery and has [facility] Choice Plus Insurance therefore is required to complete 6 months of Nutrition Intervention for clearance for surgery. Today is visit 8 of 6. ([place]ga 04/20/21,05/18/21, 06/29/21,08/03/21.08/31/21; [place] 02/05/23, [place] 03/07/23, 04/10/23) After session today, patient able to verbalize protein/fluid/exercise goals, recommendations for vitamin/minerals, use of protein shakes for meal replacement and for 2 week full liquid diet phase. Also able to demonstrate post op diet advancement/portion control using food models. Anticipate post op compliance. The patient meets NIH guidelines for weight loss surgery and has been thoroughly evaluated and educated on good dietary practices. Patient is capable of following these guidelines pre-and post-surgically. From nutrition standpoint, the patient is cleared for weight loss surgery. If the patient desires, she may continue to follow-up with the dietitian on a monthly basis until all surgical requirements are met. Nutrition Intervention A Chucky 03/07/23 1. Read Nutritional Guidelines Section of Your Guide to Surgery by next session MET [email or web address] 2. Do not skip meals. MET 3. Use protein shake 1x per day to replace any skipped meals or for breakfast MET 4. Use the Healthy Plate Method of portion control for lunch and dinner MET 4 oz lean meat (fish, chicken, pork tenderloin, turkey, seafood, eggs/cheese) 1/2 plate non starchy vegetables (salad, greens, cabbage, spinach, brussels sprouts, broccoli, carrots, celery, peppers, green beans, cauliflower) 1 cup starch/starchy vegetables (corn, peas, beans, winter squash, sweet potato, brown rice, whole grain pasta, whole grain bread products, quinoa) 5. Physical activity: Continue walking; add in 2-3 days of strength training with a goal of 150+ minutes total per week MET 6. Drink 64 ounces per day water. Fluids should follow these guidelines: No carbonation, no caffeine, no calories, no alcohol. IN PROGRESS 7. Research these vitamin options for use 3 weeks post operatively: MET - Bariatric Fusion: 4 Complete Chewable Multivitamins per day (2 in the AM, 2 in the PM) www.bariatricfusion.com - [employer]: 1 Bariatric Multivitamin and Calcium Citrate (total of 9575-8607 mg/day) * take calcium citrate separately from Multivitamin with iron at least 2 hours apart and 4 hours apart from additional calcium [email or web address] - Bariatric Choice: 4 Complete Multivitamins (chewables) per day Www.[email or web address] - Bariatric Advantage: 2 Multivitamins and 3 Calcium Citrate Chewables per day * take calcium citrate separately from Multivitamin with iron at least 2 hours apart and 4 hours apart from additional calcium [email or web address] 8. Practice these mindful eating techniques: MET Eat slowly by taking small bites and chewing thoroughly Eat protein first, vegetables second, and starches last Separate fluids from foods for 30 minutes before and after each meal/snack 9. Look into shakes for 2 week preop diet: MET 5 1/2 cartons Light Start [place] Instant Breakfast OR packets mixed with low fat milk OR 4 1/2 bottles Advanced Nutrition Slim Fast OR 4 1/2 bottles Boost Glucose Control OR 5 cartons Original (15 gm protein) Atkins shake OR 4 1/2 Botthe Original OWYN shake Pre-op goal weight: 239 pounds IN PROGRESS Protein needs: 79 gm per day MET Actions to implement interventions: see assessment Diet History: Breakfast - slim fast high protein shake (20 gm pro) Snack - gatorade protein bar (20 gm pro) OR none Lunch - leftovers from thanksgivin-4 turkey with gravy (21-28 gm pro), <1 c potatoes, green beans OR corn Snack - none Dinner - 4 oz salmon/chicken (28 gm pro) and vegetables Snack - none Beverages - 60-80 oz water, cutting down on mountain dew soda pop Alcohol - none Vitamins/Supplements - vitamin B12, vitamin C, vitamin E as directed, zinc, vitamin D Activity: 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 Resting Metabolic Rate: 1751 Malnutrition Screening Significant unintentional weight loss? No Eating less than 75% of usual intake for more than 2 weeks? No Potential Signs of Inflammation: no identifiable sources Education Materials Provided: None this visit READINESS TO LEARN Cognitive ability: Alert and oriented Motivation to learn: Interested Family support: Unable to assess - Family not present Instruction provided to: Patient Patient learns best by: Multiple Methods Factors affecting learning: None Physical limitations affecting learning: None Likelihood of Adherence: High Referred by: Paulette CORDOVA Billing Type: Re-assess/15 min 1 unit SIGNATURE: Mushtaq [address] RD PATIENT NAME: Marquita Omalley DATE: 04/10/2023 TIME: 8:26 AM documented in this encounter [facility] 03-05-2023 Miscellaneous Notes Patient is on day 10 and tested negative with home test. She was advised of provider messages and understands. Ava Huston Ma In Covid prednisone is reserved for those with O2 saturations < 90% due to risk of suppression from steroid effect. If really wheezing probably would be okay to use. Thanks, Esteban Millard PA-C . See MyChart message patient asked if she should still take the prednisone? Please advise Covid + Have her follow up with [facility] is she wants anti-viral treatment Needs to self quarantine for 5 days and then mask for 5 days Push fluids. OTC meds for symptom relief if needed. Esteban Marroquin PA-C documented in this encounter [facility] 03-05-2023 Miscellaneous Notes See TE documented in this encounter [facility] 02-13-2023 History of Present illness Narrative Patient presents for EKG per Zeenat Fowler CNP. Denies any problems a this time. Tolerated procedure well. Jamila Ellis LPN documented in this encounter [facility] 02-13-2023 History of Present illness Narrative Radiology Service Progress Note PATIENT NAME: Marquita Omalley DATE OF SERVICE: February 13, 2023 TIME: 9:09 AM PATIENT IDENTITY VERIFICATION COMPLETED USING TWO (2) IDENTIFIERS: Name and Date of confirmed by patient verbally. FALL SCREENING: Has the patient had 2 falls in the last year or 1 fall with injury or currently using an Ambulatory Assistive Device (Walker, Cane, Wheelchair, Crutches, etc.)? No PATIENT GENDER DATA: Female. status: : No status: NO. PATIENT RELEVANT IMPLANT DATA REVIEWED: Not Applicable RADIOLOGY DEPARTMENT: General X-ray: Exam(s) Completed: Chest X-Ray PERIPHERAL IV DATA: Not applicable SIGNED BY: RT Thalia(R) February 13, 2023 9:09 AM documented in this encounter [facility] 02-05-2023 History of Present illness Narrative BARIATRIC SURGERY NEW PATIENT CONSULTATION HISTORY AND PHYSICAL Date: February 05, 2023 Time: 4:11 PM Name: Marquita Omalley This visit was performed virtually. I have communicated my name and active licensure. The patient s identity and physical location were verified at the time of this visit. Either the patient or their legal architectural representative has been informed of the risks and benefits of -- and alternatives to -- treatment through a remote evaluation and consents to proceed with the evaluation remotely. This is a 47 year old female with morbid obesity (Body mass index is 40.68 kg/m .) who presents to clinic for consideration of bariatric surgery. ALISHA, on CPAP NAFLD: Elevated liver enzymes Liver US: 1. Hepatic steatosis. 2. 4 mm gallbladder polyp. PAST MEDICAL HISTORY: PAST MEDICAL HISTORY Diagnosis Date Anxiety Arthritis Chest pain Depression Ear infection Migraines Obesity, Class II, BMI 35-39.9 02/20/2019 PTSD (post-traumatic stress disorder) Sciatica UTI (lower urinary tract infection) PAST SURGICAL HISTORY: PAST SURGICAL HISTORY Procedure Laterality Date ABDOMINAL SURGERY HX APPENDECTOMY 1982 APPENDECTOMY HX BACK SURGERY HX BREAST SURGERY HX COLONOSCOPY SCREENING 02/13/2022 10 year next colonoscopy 2031 COLPOPEXY VAGINAL INTRAPERITONEAL APPROACH 01/23/2019 uterosacral ligament fixation FRACTURE SURGERY LIG/TRNSXJ FLP TUBE ABDL/VAG APPR UNI/BI 06/2007 MAMMO MAMMOGRAM 07/20/2010 OTHER lumbar spinal fusion L5-S1 PAST SURGICAL HISTORY OF 09/2008 Micro Disectomy L5S1 PAST SURGICAL HISTORY OF Left 2013 Left wrist surgery POST COLPORRHAPHY RECTOCELE W/WO PERINEORRHAPHY 01/23/2019 posterior repair REDUCTION OF LARGE BREAST 09/2006 Bilateral SKIN BIOPSY HX SLING OPER STRES INCONTINENCE 01/23/2019 TVT exact TONSILLECTOMY HX VAGINAL HYSTERECTOMY VAGINAL HYSTERECTOMY UTERUS 250 GM/< 01/23/2019 tubes and ovaries remain FAMILY HISTORY: FAMILY HISTORY Problem Relation Age of Onset Allergies Mother Anesthesia Mother Headache Mother Obesity Mother Hypertension Father Heart Father Obesity Sister Allergies Sister Headache Sister Diabetes Maternal Grandmother Emphysema Maternal Grandmother Breast Cancer Maternal Grandmother Emphysema Maternal Grandfather Alcohol/Drug Paternal Grandfather Headache Daughter other (Pneumonia) Daughter Headache Daughter Headache Son other (RSV) Son Psychiatry Maternal Uncle Suicide SOCIAL HISTORY: Social History Tobacco Use Smoking status: Former Types: Cigarettes Quit date: 08/03/2005 Years since quittin.5 Smokeless tobacco: Never Vaping Use Vaping Use: Never used Substance Use Topics Alcohol use: Not Currently Comment: Rarely Drug use: No MEDICATIONS: Prior to Admission Medications: Phentermine HCl 30 mg capsule Take 30 mg by mouth once daily. Dr Andrew URSODIOL ORAL Take 250 mg by mouth twice daily. Dr Andrew nystatin (MYCOSTATIN) cream Apply to affected area twice daily. Use for 1 week longer than it takes for rash to go away. (Patient not taking: Reported on 10/10/2022) cholecalciferol, Vitamin D3, (VITAMIN D3) 1,250 mcg (50,000 unit) cap capsule Take 1 capsule by mouth one time a week. traZODone (DESYREL) 150 mg tablet Take 150 mg by mouth daily at bedtime. CPAP Annual supplies: auto titrating PAP device 5-10 cmH2O suitable mask per pt preference, chin strap, head gear, humidity, tubing, lifetime supplies. G47.33 ALISHA ARIPiprazole (ABILIFY) 5 mg tablet Take 5 mg by mouth once daily. albuterol HFA (PROVENTIL HFA, VENTOLIN HFA) 90 mcg/actuation inhaler Inhale 2 Puffs as instructed four times daily as needed. buPROPion XL (WELLBUTRIN XL) 300 mg 24 hr tablet Take 300 mg by mouth once daily. traZODone (DESYREL) 50 mg tablet Taking 3 tabs LORazepam (ATIVAN) 0.5 mg tab Take 0.5 mg by mouth twice daily as needed. escitalopram oxalate (LEXAPRO) 20 mg tablet Taking one tablet daily. ALLERGIES: ALLERGIES Allergen Reactions Benadryl [Diphenhyd* Intolerance, Other: See Comments Jittery, shaking, skin feels like its crawling, hyper Lyrica [Pregabalin] Other: See Comments Elevates blood pressure Seasonal Allergies Other: See Comments Mostly Pollen-stuffy nose,headache Sulfa (Sulfonamide * Hives REVIEW OF SYSTEMS: GENERAL: Negative for malaise, significant weight loss and fever NECK: Negative for lumps, goiter, pain and significant neck swelling RESPIRATORY: Negative for cough, wheezing or shortness of breath. CARDIOVASCULAR: Negative for chest pain, leg swelling or palpitations. GI: Negative for abdominal discomfort, blood in stools or black stools or change in bowel habits : No history of dysuria, frequency or incontinence MUSCULOSKELETAL: Negative for joint pain or swelling, back pain or muscle pain. SKIN: Negative for lesions, rash, and itching. PSYCH: Negative for sleep disturbance, mood disorder and recent psychosocial stressors. ENDOCRINE: Negative for cold or heat intolerance, polyuria, polydipsia and goiter. PHYSICAL EXAM: Patient reported Ht 162.6 cm (5' 4) Wt 107.5 kg (237 lb) LMP 01/03/2019 (Exact Date) BMI 40.68 kg/m General - Normal, healthy, cooperative, in no acute distress Able to interact verbally by video conference Psych - Orientation: normal to time place, person and situation Mood/Affect: Normal Head/Neuro - Normal size and shape, Facial appearance normal Pulmonary - respiratory effort normal Cardiovascular - patient describes extremities normal, warm, no cyanosis,no clubbing, and no edema Abdominal - Visible protrusions or hernias: No Skin - abnormal lesions not visualized Motor - patient seen sitting with normal appearing strength and coordination Assessment IMPRESSION: Marquita Omalley is a 47 year old female with the following diagnosis and co-morbidities: Body mass index is 40.68 kg/m . Diagnosis noted as above, no additional diagnosis at this time. This patient does meet the criteria for a surgical weight loss procedure according to NIH guidelines. PLAN: The plan of treatment for Marquita Omalley is to continue with the consultations and tests ordered today in hopes of qualifying for pre-operative clearance for bariatric surgery. I have reviewed with this patient needed nutritional changes, post-operative recovery, and the potential for excess skin following surgery and subsequent weight loss. Risks of nicotine before and after bariatric surgery and risks of postoperative adverse events (post-operative and beyond) were also discussed with patient. Furthermore, information regarding probable and potential postoperative complications, dietary and medical postoperative limitations, and potential cosmetic sequelae has been given to patient. Health risks associated with obesity, alternatives to surgery, alternative forms of surgery, pre-surgical strategies to reduce risks, potential psychological adjustment issues, post-surgical commitment (aftercare program) were also explained. All questions were answered. Patient understood the risks and benefits and agreed to proceed with surgery. Patient is interested in: Sleeve gastrectomy + liver biopsy I spent a total of 60 minutes on the date of the service which included preparing to see the patient, [id number] patient care, completing clinical documentation, obtaining and/or reviewing separately obtained history, and counseling and educating the patient/family/caregiver. Mary Beth Caldwell MD Advanced Laparoscopic and Bariatric Surgery documented in this encounter [facility] 02-05-2023 History of Present illness Narrative BMI Obesity Medicine Initial Bariatric Surgery Consult Virtual visit Virtual Visit (Audio/Visual)I have discussed the nature of this visit with the patient which will occur via [facility] (Phone, Virtual Visit) and she agrees to proceed with this interaction. I have communicated my name and active licensure. The patient's identity and physical location were verified at the time of this visit. Either the patient or their legal architectural representative has been informed of the risks and benefits of -- and alternatives to -- treatment through a remote evaluation and consents to proceed with the evaluation remotely. Patient Summary:: Marquita Omalley is a 47 year old female who presents on February 05, 2023 for medical assessment of obesity. The patient is interested in laparoscopic sleeve gastrectomy and has decided to have the procedure with Mary Beth Caldwell MD Weight History: She reports a family history of obesity and adult onset weight gain. She states her weight gain is related to the following factors, including reduced physical activity and consumption of unhealthy foods. Weight Graph: (please see graph scanned in chart) Weight Gain Promoting Medications: NO Diet: B: Egg with toast or yogurt/granola/fruit L: Salad or turkey/cheese wrap (no bread) D: Stem/tuna/turkey/chicken with vegetables, minimal rice/pasta Snacks: Popcorn chips beverages: Water, coffee, 'russian clear' carbonated drink Characterization of diet:Structured. History of eating disorders: Binging/purging Previous Obesity Treatments: Self directed exercise and dieting Commercial dieting Previous AOM Rx: Phentermine, Wellbutrin Exercise: Regular exercise: Walks 2-3x/week- 45 minutes Barriers to regular exercise? None Stress test: no Functional Status: Do heavy work around the house, such as scrubbing floors, lifting or moving heavy furniture (8.00 METs) Patient denies any chest pain or undue shortness of breath with the above physical activity. 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 Dr Andrew URSODIOL ORAL Take 250 mg by mouth twice daily. Dr Andrew nystatin (MYCOSTATIN) cream Apply to affected area twice daily. Use for 1 week longer than it takes for rash to go away. (Patient not taking: Reported on 10/10/2022) cholecalciferol, Vitamin D3, (VITAMIN D3) 1,250 mcg (50,000 unit) cap capsule Take 1 capsule by mouth one time a week. traZODone (DESYREL) 150 mg tablet Take 150 mg by mouth daily at bedtime. CPAP Annual supplies: auto titrating PAP device 5-10 cmH2O suitable mask per pt preference, chin strap, head gear, humidity, tubing, lifetime supplies. G47.33 ALISHA ARIPiprazole (ABILIFY) 5 mg tablet Take 5 mg by mouth once daily. albuterol HFA (PROVENTIL HFA, VENTOLIN HFA) 90 mcg/actuation inhaler Inhale 2 Puffs as instructed four times daily as needed. buPROPion XL (WELLBUTRIN XL) 300 mg 24 hr tablet Take 300 mg by mouth once daily. traZODone (DESYREL) 50 mg tablet Taking 3 tabs LORazepam (ATIVAN) 0.5 mg tab Take 0.5 mg by mouth twice daily as needed. escitalopram oxalate (LEXAPRO) 20 mg tablet Taking one tablet daily. No current facility-administered medications on file prior to visit. ALLERGIES Allergen Reactions Benadryl [Diphenhyd* Intolerance, Other: See Comments Jittery, shaking, skin feels like its crawling, hyper Lyrica [Pregabalin] Other: See Comments Elevates blood pressure Seasonal Allergies Other: See Comments Mostly Pollen-stuffy nose,headache Sulfa (Sulfonamide * Hives PAST SURGICAL HISTORY Procedure Laterality Date ABDOMINAL SURGERY HX APPENDECTOMY 1983 APPENDECTOMY HX BACK SURGERY HX BREAST SURGERY HX COLONOSCOPY SCREENING 02/13/2022 10 year next colonoscopy 2031 COLPOPEXY VAGINAL INTRAPERITONEAL APPROACH 01/23/2019 uterosacral ligament fixation FRACTURE SURGERY LIG/TRNSXJ FLP TUBE ABDL/VAG APPR UNI/BI 06/2007 MAMMO MAMMOGRAM 07/20/2010 OTHER lumbar spinal fusion L5-S1 PAST SURGICAL HISTORY OF 09/2008 Micro Disectomy L5S1 PAST SURGICAL HISTORY OF Left 2013 Left wrist surgery POST COLPORRHAPHY RECTOCELE W/WO PERINEORRHAPHY 01/23/2019 posterior repair REDUCTION OF LARGE BREAST 09/2006 Bilateral SKIN BIOPSY HX SLING OPER STRES INCONTINENCE 01/23/2019 TVT exact TONSILLECTOMY HX VAGINAL HYSTERECTOMY VAGINAL HYSTERECTOMY UTERUS 250 GM/< 01/23/2019 tubes and ovaries remain Any problems with anesthesia with the above surgeries: No Patient Active Problem List Obstructive sleep apnea (adult) (pediatric) ALISHA (obstructive sleep apnea) Mild intermittent asthma without complication Migraine without aura, intractable, without status migrainosus Obesity, Class II, BMI 35-39.9 Anxiety with depression Resolved Hospital Problems No resolved problems to display. FAMILY HISTORY Problem Relation Age of Onset Allergies Mother Anesthesia Mother Headache Mother Obesity Mother Hypertension Father Heart Father Obesity Sister Allergies Sister Headache Sister Diabetes Maternal Grandmother Emphysema Maternal Grandmother Breast Cancer Maternal Grandmother Emphysema Maternal Grandfather Alcohol/Drug Paternal Grandfather Headache Daughter other (Pneumonia) Daughter Headache Daughter Headache Son other (RSV) Son Psychiatry Maternal Uncle Suicide Social History Tobacco Use Smoking status: Former Types: Cigarettes Quit date: 08/03/2005 Years since quittin.5 Smokeless tobacco: Never Vaping Use Vaping Use: Never used Substance Use Topics Alcohol use: Not Currently Comment: Rarely Drug use: No Review Of Systems Skin: negative Respiratory: +ALISHA-Cpap Cardiovascular: No history of chest pain,palpitation,orthopnea,cynosis ,pedel edema Gastrointestinal: No blood in stool, pain with BM, tarry stool, persistent diarrhea or constipation Genitourinary: No burning with urination, blood in urine or incontinence. Hematology/Lymphology Negative for prolonged bleeding, bruising easily or swollen nodes Musculoskeletal: +back pain, +joint pain Psychiatric: +anxiety, +depression Endocrine: No history of thyroid disorder,diabetes,cold intolerance,heat,intolerance,polyd ypsia Neuro: Migraine headaches Physical Exam:(VIRTUAL) Ht 162.6 cm (5' 4) Wt 107.5 kg (237 lb) LMP 01/03/2019 (Exact Date) BMI 40.68 kg/m BMI = Body mass index is 40.68 kg/m . GENERAL: NAD Impression Marquita Omalley is a 47 year old female with Class III obesity who presented today for medical evaluation as Marquita Omalley prepares for bariatric surgery. She has the following metabolic complications of obesity obstructive sleep apnea and vitamin D deficiency and other medical conditions as noted above. She is a candidate for bariatric and metabolic surgery. she will be evaluated by our multidisciplinary team in preparation for surgery. : Recommend that she should not become for 18-24 months after surgery due to increased risks of micronutrient deficiency. I counseled her on the perioperative use of estrogen therapy, instructing her not to take oral estrogen (eg OCPs) one month before and one month after surgery due to increased VTE risk. We reviewed alternate forms of contraception and encouraged the patient to speak with her physician/provider to formulate a perioperative plan. If she is considering a Estelle-en Y gastric bypass, I counseled her that oral methods of control may not be as effective after surgery and that they should consider alternate contraception to reduce the risk of . May proceed with bariatric surgery if the baseline ECG normal. No further noninvasive cardiac testing needed as the patient has no intermediate clinical risk factors, (IDDM, renal failure, CHF, CAD, and CVA) and has a normal functional capacity. Plan Based on the severity and resistance of the obesity to more conservative weight loss approaches, I believe a surgical intervention is the best and most appropriate intervention. -The patient has a 6 month insurance requirement prior to surgery. -Reviewed BMI Nutritional Tips for Bariatric Surgery pamphlet -Encouraged the patient to improve physical activity. We discussed the benefits of both cardiovascular and strength exercises. -Discussed the importance of taking post-operative vitamins and reviewed vitamin levels ordered today. Patient understands that any variations of B vitamins or Vitamin D will be corrected pre-operatively. -Labs ordered today: See Epic -CXR, EKG Order placed today -RUQ US results in Epic -Nutrition counseling 05/19 completed today I spent a total of 45 minutes on the date of the service which included preparing to see the patient, [id number] patient care, completing clinical documentation, obtaining and/or reviewing separately obtained history, performing a medically appropriate examination, counseling and educating the patient/family/caregiver, ordering medications, tests, or procedures, and independently interpreting results (not separately reported). Zeenat Fowler APRN.CAREER SERVICES OFFICER documented in this encounter [facility] 11-13-2022 History of Present illness Narrative [facility] Bariatric Behavioral Services Progress Note November 15, 2022 [facility]ST CENTER: [facility] BILLING CODE: Cecilia CPT Code: [id number] Virtual Psychotherapy 38-52 minutes + Brief assessment w/ scoring & documentation x2 Time initiated session: 10:07 AM to 10:53 AM Date of First Session: 09/01/22 (initial evaluation) Session #: 2 this cycle The patient e-signed the Informed Consent for Psychological Evaluation & Care Form, and the behavioral health care insurance benefits, fees for service, emergency procedures, and the limits of confidentiality that may pertain with any given case were discussed with the patient. The patient was given a copy of the consent form on Coinplug. The patient consented to a virtual visit and their location was confirmed. Collateral Parties Present: none. Subjective: The patient has been working on the following steps to prepare for surgery: 1) Completed Best Start 2) Submitted mental health documentation from psychiatric provider Previously noted concerns: Eating disorder w/ self-induced or spontaneous vomiting Depression, anxiety, and PTSD treated w/ psychiatric medication Per 11/01/22 Best Start note by the undersigned provider: Follow up with individual psychology provider: Cecilia; Patient made good progress in group in terms of establishing a regular self-monitoring habit and meeting all behavioral goals. BES was not fully completed post-group, so disordered eating needs further assessment at follow-up. She shared needing extra support to provide accountability, and may benefit from support groups and/or [facility] After[facility]. Ms. Omalley described the Best Start group as helpful. She is still in touch with another member of the group. Diet recall: Breakfast: 8am; yogurt, fruit, granola Snack: usually none OR fruit bar Lunch: 11:30-12; turkey, cheese, pickles on a mini slider bun w/ fruit Snack: none Dinner: 4:30pm; turkey sandwich w/ cheese and pickles OR salmon and vegetables Snack: usually none OR small amount of sorbet OR cheese and crackers Bed at 9:00pm Eating in the absence of hunger: 3-4x/week (consuming high protein popcorn if bored after dinner) Binge eating: None Night eating: None Self-induced vomiting: None over the past 2.5 months By eating at regular intervals and practicing mindful eating to slow the pace of her eating, she is no longer reaching the point of discomfort prompting her to feel like she needs to vomit. She was open about having the urge to induce vomiting last night, but she used adaptive self-talk to overcome this urge. Also, her boyfriend is aware of this challenge and has been supportive. She has lost 21 lb over the past 1.5-2 months (CW: 254 lb). She attributed weight loss to phentermine, eliminating fast food over the past 3 months, practicing mindful eating, and reducing evening snacking. At the advice of her liver doctor, she has been eating only between 7am-5pm. Because dinner is so early, she is either feeling very hungry and/or bored when her children are at their dad's house. Mood was described as stable. Ms. Omalley has been wanting to reduce psychiatric medications because she thought they may negatively impact surgery. Thus, her psychiatry provider decreased one of her medications last week (LEXAPRO- decreased from 20 to 10 mg). She has noticed no difference in mood so far. Cautioned her about decreasing medications, given the potential for malabsorption post-surgery, and she expressed understanding of this. Interventions included: 1) Relaxation strategies 2) Stimulus control 3) Psychoeducation about psychotropic medications and potential mood changes s/p surgery Patient mood is: Unchanged since last session. Affect is: Appropriate. Objective: Patient Data Generalized Anxiety Disorder Scale (ELIF-7) ELIF - 7 SCORES 10/23/2022 10/25/2022 11/08/2022 ELIF-7 Score 4 4 4 (0-4) minimal anxiety, (5-9) mild anxiety, (10-14) moderate anxiety, (15-21) severe anxiety Patient Health Questionnaire (PHQ-9) PHQ-9 10/23/2022 10/25/2022 11/08/2022 Score 3 2 1 (0-4) minimal depression, (5-9) mild depression, (10-14) moderate depression, (15-19) moderately severe depression, (20-27) severe depression Assessment: MDD in remission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 She is addressing this trauma in therapy. Mental health history updates as of today: She was discharged from therapy 1 year ago due to progress, and is feeling good despite no longer engaging in therapy. She said, If anything happens, I don't spin out of control. I can handle it. She feels her current medications are working well. Ms. Omalley has never been an inpatient for a psychiatric reason. The patient has no previous suicide attempts. The patient has no history of self-injurious behavior. Ms. Omalley describes her overall mood as follows: content. The following psychiatric symptoms are noted: Depression: She feels depression is well-controlled w/ medication. She denied more down days than up days or anhedonia. She rated her depression as minimal on the PHQ-9. [place]: Denies any history of hypomanic or manic episodes. Psychosis: Denies any hallucinations or delusions. Generalized Anxiety Disorder: She feels anxiety is well-managed with medication. Her only currently source of anxiety is a classmate in a episcopalian course she is taking. She denied anxiety feeling uncontrollable. Panic: She reported rare panic attacks, most recently 1 year ago, triggered by being in an extremely crowded place. Obsessive Compulsive Disorder: Denies any symptoms of OCD. Post-Traumatic Stress Disorder: Experienced/witnessed trauma that threatened one's/someone else's integrity; Reexperiencing of trauma (very rare flashbacks). She denied hyperarousal or avoidance. The patient has the following level of depression: mild and episodic not requiring treatment (or stable on current regimen). Besides depressive disorders, the patient meets criteria for Anxiety disorder(s). SUBSTANCE USE Alcohol Use Disorder Identification Test-C: How often do you drink Alcohol? 0 (Never); How many drinks containing alcohol do you have on a typical day when you are drinking? 0 ( = 1 or 2 ); How often do you have 5 or more drinks on one occasion: 0 (Never). The patient's most recent drinking episode was 9 months ago. She eliminated alcohol because she learned her liver enzymes were elevated. Currently, the patient has no alcohol use. She denied past problems with alcohol. The patient was given a handout: The Facts About Alcohol Use & Your Bariatric Surgery. The patient DOES NOT report current marijuana use. The patient denies current drug use and reports past drug use including Marijuana (last use: in her 20s; frequency: rare/social; denied problems or treatment), Acid (last use: in her 20s; frequency: once only), and Opium (last use: in her 20s; frequency: once only). The patient does not report social/occupational/legal consequences associated with drug or alcohol use. Currently, the patient has no reported substance abuse (prescription or illegal). Treatment included: The patient has never had any substance abuse treatment. The patient quit smoking > 22 years ago. She was only smoking occasionally prior to that. She was smoking only occasionally prior to that The patient has no tobacco use. FAMILY OF ORIGIN Ms. Omalley was raised by her mother and biological father, but he was rarely at home. She described her childhood as fairly happy. She had to tiptoe on eggshells around her father. The patient has 1 sister. The patient's mother and sister are still living. Her father last year. She is currently very close with her mother and sister. The patient's mother is becoming more supportive of her decision for surgery. She is planning to not tell her sister, who has been strongly opposed to it. MARITAL FAMILY/SIGNIFICANT RELATIONSHIPS Ms. Omalley has been x1 since 2017. She has been dating her boyfriend for 5-6 years. The patient has 3 children, ages 19, 16, and 15. The patient currently lives with her children. The patient's significant other is supportive of her decision for surgery. She describes her family life as good. The patient will have her boyfriend help her after surgery during the recovery period. Other social supports include friends who all live out of state. The patient reports that her social supports are supportive of her decision for surgery. 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 Her achievement in school was average. 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 Pt has worked there for the past 11.5 years. She has made plans for time off postsurgery. She was unsure of the timeline of postsurgical recovery and was educated about this. CURRENT STRESSORS: The patient reports the following stressors: another student in a episcopalian course she's taking (he is a trigger for her anxiety), dance season for her children, and work stress COPING STRATEGIES The patient reports the following coping strategies: practicing adaptive self-talk, taking breaks, scrapbooking, and doing crafts. These coping strategies have been effective. The patient notes buddhist practice is: Soila. The patient's cultural identity/ethnicity is: . LEISURE/EXERCISE The patient currently exercises 2-3 times a week by walking. The patient's hobbies include doing crafts. SLEEP: The patient reports problems falling asleep: No The patient reports problems staying asleep:No The patient reports the following quality of sleep:good Total sleep time: 8 hours Patient is diagnosed with ALISHA:Yes The patient wears a CPAP for 8 hours; 7 days/week. Patient Data Generalized Anxiety Disorder Scale (ELIF-7) ELIF - 7 SCORES 07/28/2022 08/28/2022 ELIF-7 Score 3 2 (0-4) minimal anxiety, (5-9) mild anxiety, (10-14) moderate anxiety, (15-21) severe anxiety Patient Health Questionnaire (PHQ-9) PHQ-9 06/09/2022 07/28/2022 08/28/2022 Score 3 4 2 (0-4) minimal depression, (5-9) mild depression, (10-14) moderate depression, (15-19) moderately severe depression, (20-27) severe depression Mental Status Exam: General/Sensorium: Alert and & interactive - Appearance: Appears well groomed and stated age - Eye Contact: Appropriate eye contact - Demeanor: Appropriately interactive - Motor Activity: Normal - Speech: Appropriate - Mood: Denies mood concerns - Affect: Euthymic - Thought Process: Linear, logical, and goal-directed - Associations: Normal - Thought Content: Appropriate with no SI/HI/AVH - Perceptions: The patient does not appear internally stimulated - Cognition: Appears intact in regards to memory, attention/concentration, fund of knowledge and language skills - Insight: Fair - Judgment: Fair - PROVISIONAL DIAGNOSTIC IMPRESSION Primary Diagnoses: MDD in remission ELIF Eating Disorder unspecified Psychological Factors Affecting Morbid Obesity Personality Diagnoses:Deferred Global Assessment of Functionin-61 Some mild symptoms or some difficulty in social, occupational, or school functioning, but generally functioning pretty well. IMPRESSIONS: 1) Based on the information gathered through the interview process , she appears to be psychologically stable at this time. Pt's depression, anxiety, and PTSD have been well-managed with medication even after she was discharged from therapy over the past year due to progress. Will obtain updated mental health documentation from her solar installer technician. The biggest concern with this patient is her weekly self-induced vomiting. She does not meet criteria for bulimia nervosa because these episodes are not occurring to compensate for eating large amounts of food nor for weight/shape purposes. However, she acknowledged that if she waits too long to eat, she becomes so hungry that she eats rapidly and either spontaneously vomits, or otherwise intentionally vomits to relieve the discomfort. Discussed needing to eliminate this pattern for her to be safe for surgery. She will start by attending the [facility] to gain tools for regulating her eating pattern and learning to slow the pace of her eating . The patient appeared to have reasonable expectations regarding surgery. The patient s understanding of the surgery and the changes necessary post-operatively appears to be good. 2) The patient evidences depression and anxiety at this time but is well managed with medication. The patient reported a history of tobacco use/dependence but has been tobacco free for >22 years. The patient denies current substance abuse and does not evidence a history of substance abuse or dependence. The patient has moderate stress at this time. The patient has effective coping and fair supports. The patient evidences an eating disorder at this time Pt described the following maladaptive behavioral pattern: self-induced vomiting to relieve discomfort associated with eating too quickly. TREATMENT PLAN AND RECOMMENDATIONS: 1) The following items are needed to complete the psychological evaluation: *Eliminate self-induced vomiting for a period of time leading up to surgery (set alarms to remind yourself to eat at regular intervals) *[facility] attendance or equivalent individual treatment of unhealthy eating patterns and [facility] APPOINTMENT AFTER COMPLETION OF GROUP (If you need to reschedule with [facility] call [phone]) Virtual group sessions scheduled October 11, October 18, October 25, and November 01 from 8:30-10am Individual follow-up w/ Dr. Brooks 11/15 at 10:15 *Updated documentation from current solar installer technician - form sent to Faye Mckee *Additional requirements may be necessary if further psychological contraindications arise during the process of behavioral health evaluation. 2) The patient may benefit from the following during the surgery process: *ongoing psychotropic medication management by solar installer technician.Please note that psychiatric medications may not work as well after bariatric surgery. Carefully monitor your mood with your prescriber to determine any potential need for changes in dosage, types of medications prescribed, etc. *implement exercise program such as warm water aerobics, walking, or exercise that can be done from a chair *read The Emotional First Aid Kit: A Practical Guide to Life After Bariatric Surgery by Maggie Perez *Follow up with psychology as an inpatient if needed *Follow up with psychology at 1, 3, 6, and 12 months postsurgery *Do not use alcohol, tobacco, and street drugs for 3 to 6 months prior to and after surgery. 3) Pt provided with Behavior Health Considerations re: bariatric surgery, reading and internet resources for facilitating postsurgical adjustment and permanent lifestyle change, and weight loss surgery support group information in her Surgical Guide. 4) The patient is to follow up in 8 weeks. 5) Above recommendations and treatment plan will be communicated back to the referring physician by way of the shared medical record. Thank you for this referral. Please feel free to call or page with any questions. ___ Brinda Brooks, Ph.D. Psychologist BEHAVIORAL HEALTH BARIATRIC EVALUATION SUMMARY DATE : September 01, 2022 PATIENT NAME: Marquita Omalley 1. Consent: Good 2. Expectations:Good 3. Social support :Fair 4. Mental Health :Fair 5. Chemical/Alcohol Abuse/Dependence: Good 6. Eating Behaviors:Guarded 7. Adherence : Fair 8. Coping/Stressors:Fair 9. Overall Psychological Impression: Guarded documented in this encounter [facility] 08-04-2022 History of Present illness Narrative Marquita Omalley [id number] August 04, 2022 [facility] Bariatric and Metabolic [facility] M61 Psychology Orientation/ Welcome Group CPT: NO CHARGE (informational seminar/no treatment provided) 1:00-2:00pm Psychology Orientation Seminar Patients attended an informational seminar as their first step in the BMI program. Patients provided verbal consent related to the use of virtual visits and were reminded of the limits of confidentiality. Provided basic information about bariatric surgery procedures, benefits, lifestyle changes needed, and psychological risks. Patients were oriented to the multidisciplinary process, role of psychology in the bariatric program, and various behavioral health services provided. Reviewed psychosocial adjustment issues common after surgery, and how such problems can be prevented with pre- and post-op care. Also discussed risks of alcohol, nicotine, and marijuana after surgery and reviewed requirements for cessation and toxicology screenings. Patients were encouraged to seek or intensify mental health treatment if needed, and provided with resources to find mental health care. Lastly, briefly reviewed benefits of food diaries and encouraged patients to begin identifying barriers to weight management by tracking intake. Orders for referrals and toxicology screens were placed if requested by the patient. Following the session, patients were provided with a copy of the presentation slides, a list of recommended readings including a link to the BMI manual, and a mental health documentation form to give to mental health providers, if applicable. Orders placed by patient request: NONE Plan: Patient to be scheduled for an individual psychology consultation visit w/ the undersigned provider. Brinda Brooks, Ph.D. Psychologist documented in this encounter [facility] 08-03-2022 Instructions aCrly Colón APRN.[facility] - 08/03/2022 10:48 AM EDT GENERAL SUN SAFETY Thank you for allowing me to examine you for signs of skin cancer today. We had an opportunity to discuss my findings and any treatments I recommended. I believe that there are several steps that a person can do to help prevent skin cancers and to detect them at an early, treatable stage: 1. I highly recommend that once a month you perform your own complete skin check looking for changing or unusual spots. Use a wall-mounted mirror and a hand mirror to assist in seeing body areas that are difficult to see otherwise. If you have a family member that can assist, this is often helpful. Additional information can be obtained at: www.skincancer.org/gckb-gnuixn-hob ormation/early-detection 2. In many cases, skin cancer can be prevented. The best way to protect yourself is to avoid too much sun and sunburns. Health care providers believe that ultraviolet rays (UV rays) from the sun damage the skin and over time lead to skin cancer. Here are ways to protect yourself: -Don't spend long periods of time in direct sunlight. -Wear hats with brims to protect your face and ears. -Wear long-sleeved shirts and pants to protect your arms and legs. -Use broad spectrum sunscreens with a SPF (skin protection factor) of 30 or higher that protect against burning and tanning rays. Apply the lotion 30 minutes before you go outside. (Broad-spectrum sunscreens protect against UV-B and UV-A rays.) -Wear sunglasses to protect your eyes. -Use a lip balm with sunscreen. -Avoid the sun between 10am and 4pm. -Show any changing mole to your health care provider. documented in this encounter [facility] 08-03-2022 History of Present illness Narrative Images from the original note were not included. Department of Dermatology Carly Colón APRN.[facility] 08/03/2022 Last visit in Dermatology: Visit date not found Objective/Assessment/Plan 1. Seborrheic keratosis Right Buccal Cheek Stuck-on verrucous, variably pigmented papule Observational course. Monitor for growth and changes. The nature of sun-induced photo-aging and skin cancers is discussed. Sun avoidance, protective clothing, and the use of 30-SPF sunscreens is advised. Patient is instructed to perform regular self exams. Observe for changing, symptomatic, or new skin lesions and seek care with the patient's primary care provider or with dermatology if any lesions of concern are noted. Follow-up as noted below or as needed. Carly Colón APRN.RENETTA Chief Complaint: Patient presents with: LESION, SKIN Subjective and Objective HPI: Marquita Omalley is a 46 year old female who presents for individual lesion(s). Lesion(s): spot Location(s): right buccal cheek Duration: ~ 10 days Symptoms: raised, sensitive to touch Severity: mild Inciting factors: CPAP rests against lesion Associated symptoms/previous treatments: none Past medical history is reviewed. Medication list is reviewed. Physical Exam included: face Intake completed by NAPOLEON Mcgraw APRN.CAREER SERVICES OFFICER documented in this encounter [facility] 08-02-2022 Instructions Brigette Martin APRN.RENETTA - 08/02/2022 8:47 AM EDT Start the nystatin. Use for 1 week longer than it takes to go away. Keep area dry. Schedule with dermatology. documented in this encounter [facility] 08-02-2022 History of Present illness Narrative This is a 46 year old female who presents today with: Patient presents with: Vaginal Problem: L armpit x 2 weeks; tried otc cortisone cream and candex HISTORY OF PRESENT ILLNESS: Marquita Omalley is a 46 year old female. Patient presents with: Vaginal Problem: L armpit x 2 weeks; tried otc cortisone cream and candex Pt presents today with complaint of possible yeast infection in her armpit. Present X 2 weeks. Seeping and itching. Tried some cortisone cream and candex, but without effect. She has also noticed a facial lesion. Raised. Right cheek. Present for about 2 weeks. Bleeds easily. PAST MEDICAL HISTORY: PAST MEDICAL HISTORY Diagnosis Date Anxiety Arthritis Chest pain Depression Ear infection Migraines Obesity, Class II, BMI 35-39.9 02/20/2019 PTSD (post-traumatic stress disorder) Sciatica UTI (lower urinary tract infection) PAST SURGICAL HISTORY Procedure Laterality Date ABDOMINAL SURGERY HX APPENDECTOMY 1983 APPENDECTOMY HX BACK SURGERY HX BREAST SURGERY HX COLONOSCOPY SCREENING 02/13/2022 10 year next colonoscopy 2031 COLPOPEXY VAGINAL INTRAPERITONEAL APPROACH 01/23/2019 uterosacral ligament fixation FRACTURE SURGERY LIG/TRNSXJ FLP TUBE ABDL/VAG APPR UNI/BI 06/2007 MAMMO MAMMOGRAM 07/20/2010 OTHER lumbar spinal fusion L5-S1 PAST SURGICAL HISTORY OF 09/2008 Micro Disectomy L5S1 PAST SURGICAL HISTORY OF Left 2013 Left wrist surgery POST COLPORRHAPHY RECTOCELE W/WO PERINEORRHAPHY 01/23/2019 posterior repair REDUCTION OF LARGE BREAST 09/2006 Bilateral SKIN BIOPSY HX SLING OPER STRES INCONTINENCE 01/23/2019 TVT exact TONSILLECTOMY HX VAGINAL HYSTERECTOMY VAGINAL HYSTERECTOMY UTERUS 250 GM/< 01/23/2019 tubes and ovaries remain ALLERGIES Benadryl [Diphenhydramine], Lyrica [Pregabalin], Seasonal Allergies, and Sulfa (Sulfonamide Antibiotics) MEDICATIONS Current Outpatient Medications Medication Sig cholecalciferol, Vitamin D3, (VITAMIN D3) 1,250 mcg (50,000 unit) cap capsule Take 1 capsule by mouth one time a week. traZODone (DESYREL) 150 mg tablet Take 150 mg by mouth daily at bedtime. CPAP Annual supplies: auto titrating PAP device 5-10 cmH2O suitable mask per pt preference, chin strap, head gear, humidity, tubing, lifetime supplies. G47.33 ALISHA ARIPiprazole (ABILIFY) 5 mg tablet Take 5 mg by mouth once daily. albuterol HFA (PROVENTIL HFA, VENTOLIN HFA) 90 mcg/actuation inhaler Inhale 2 Puffs as instructed four times daily as needed. buPROPion XL (WELLBUTRIN XL) 300 mg 24 hr tablet Take 300 mg by mouth once daily. traZODone (DESYREL) 50 mg tablet Taking 3 tabs LORazepam (ATIVAN) 0.5 mg tab Take 0.5 mg by mouth twice daily as needed. escitalopram oxalate (LEXAPRO) 20 mg tablet Taking one tablet daily. No current facility-administered medications for this visit. FAMILY HISTORY Problem Relation Age of Onset Allergies Mother Anesthesia Mother Headache Mother Obesity Mother Hypertension Father Heart Father Obesity Sister Allergies Sister Headache Sister Diabetes Maternal Grandmother Emphysema Maternal Grandmother Breast Cancer Maternal Grandmother Emphysema Maternal Grandfather Alcohol/Drug Paternal Grandfather Headache Daughter other (Pneumonia) Daughter Headache Daughter Headache Son other (RSV) Son Psychiatry Maternal Uncle Suicide Social History Tobacco Use Smoking status: Former Types: Cigarettes Quit date: 08/03/2005 Years since quittin.0 Smokeless tobacco: Never Vaping Use Vaping Use: Never used Substance Use Topics Alcohol use: Not Currently Comment: Rarely Drug use: No EXAM: BP 132/94 Pulse 75 Resp 18 LMP 01/03/2019 (Exact Date) SpO2 95% PHYSICAL EXAM: General Appearance: Well appearing, alert, in no acute distress, well-hydrated, well nourished.. Skin: Skin color, texture, turgor normal. Left axilla with redness and satellite lesions. Right cheek with appx 4mm raised scabbed/scaly area. Head: Normocephalic, no masses, lesions, tenderness or abnormalities. Eyes: Anicteric sclera. Pupils are equally round and reactive to light. Extraocular movements are intact. . Neurologic: Gait normal. Reflexes normal and symmetric. Sensation grossly intact.. ASSESSMENT/PLAN: 1. Candidiasis, cutaneous - ICD9: 112.3, ICD10: B37.2 (primary diagnosis) - NYSTATIN 100,000 UNIT/GRAM TOPICAL CREAM Use for 1 week longer than it takes for rash to clear. 2. Facial lesion - ICD9: 709.9, ICD10: L98.9 Referral to derm. Suspect will need bx. - CONSULT TO DERMATOLOGY Discussed treatment plan and patient voices understanding. Patient's questions answered appropriately. Medications and potential side effects were discussed and patient voices understanding. Return to the office as scheduled or as needed for worsening/no improvement. Brigette Martin APRN.CNP documented in this encounter [facility] 07-07-2022 Miscellaneous Notes Consult for gastroenterology placed, labs and test results faxed to Dr. Andrew's office at [facility]. Patient refers she will schedule appointment. Georgina Ramos APRN.CNP documented in this encounter [facility] 06-23-2022 Miscellaneous Notes Phoned patient and given provider's message below with verbalized understanding. Patient agreeable. Can please let patient know that I received her repeat liver enzyme results. It continues to trend downward. Please recheck again in 1-2 weeks. Order is in. Brigette Martin APRN.RENETTA documented in this encounter [facility] 06-19-2022 Instructions Brigette Martin APRN.CNP - 06/19/2022 1:29 PM EST Get labs done later this week. Schedule ultrasound in 6 months. Schedule w/ bariatrics. Let me know if cream is not covered by insurance or not working. documented in this encounter [facility] 06-19-2022 History of Present illness Narrative This is a 46 year old female who presents today with: Patient presents with: Discussion: Referral to Bariatric medicine; discuss results of labs/imaging done on 2 HISTORY OF PRESENT ILLNESS: Marquita Omalley is a 46 year old female. Patient presents with: Discussion: Referral to Bariatric medicine; discuss results of labs/imaging done on 06/16 Pt presents today for referral to bariatric medication. She previously followed with bariatric medicine. Was pursuing a sleeve. She was doing well losing weight by herself, so continued with lifestyle management. Since that time though she has gained weight back. She is now interested in returning to bariatric medicine. She had some labwork completed last week for sleep med. Found to have elevated liver enzymes. Did recheck labs on Sunday, and did come down some. Hepatitis labs normal. Liver ultrasound today shows fatty liver and a gallbladder polyp. No tylenol or ETOH use. No recent sickness. Continues to have rash on upper back. + itch. Tried the triamcinolone, but returned. PAST MEDICAL HISTORY: PAST MEDICAL HISTORY Diagnosis Date Anxiety Arthritis Chest pain Depression Ear infection Migraines Obesity, Class II, BMI 35-39.9 02/20/2019 PTSD (post-traumatic stress disorder) Sciatica UTI (lower urinary tract infection) PAST SURGICAL HISTORY Procedure Laterality Date ABDOMINAL SURGERY HX APPENDECTOMY 1982 APPENDECTOMY HX BACK SURGERY HX BREAST SURGERY HX COLONOSCOPY SCREENING 02/13/2022 10 year next colonoscopy 2031 COLPOPEXY VAGINAL INTRAPERITONEAL APPROACH 01/23/2019 uterosacral ligament fixation FRACTURE SURGERY LIG/TRNSXJ FLP TUBE ABDL/VAG APPR UNI/BI 06/2007 MAMMO MAMMOGRAM 07/20/2010 OTHER lumbar spinal fusion L5-S1 PAST SURGICAL HISTORY OF 09/2008 Micro Disectomy L5S1 PAST SURGICAL HISTORY OF Left 2013 Left wrist surgery POST COLPORRHAPHY RECTOCELE W/WO PERINEORRHAPHY 01/23/2019 posterior repair REDUCTION OF LARGE BREAST 09/2006 Bilateral SKIN BIOPSY HX SLING OPER STRES INCONTINENCE 01/23/2019 TVT exact TONSILLECTOMY HX VAGINAL HYSTERECTOMY VAGINAL HYSTERECTOMY UTERUS 250 GM/< 01/23/2019 tubes and ovaries remain ALLERGIES Benadryl [Diphenhydramine], Lyrica [Pregabalin], Seasonal Allergies, and Sulfa (Sulfonamide Antibiotics) MEDICATIONS Current Outpatient Medications Medication Sig cholecalciferol, Vitamin D3, (VITAMIN D3) 1,250 mcg (50,000 unit) cap capsule Take 1 capsule by mouth one time a week. traZODone (DESYREL) 150 mg tablet Take 150 mg by mouth daily at bedtime. CPAP Annual supplies: auto titrating PAP device 5-10 cmH2O suitable mask per pt preference, chin strap, head gear, humidity, tubing, lifetime supplies. G47.33 ALISHA ARIPiprazole (ABILIFY) 5 mg tablet Take 5 mg by mouth once daily. albuterol HFA (PROVENTIL HFA, VENTOLIN HFA) 90 mcg/actuation inhaler Inhale 2 Puffs as instructed four times daily as needed. buPROPion XL (WELLBUTRIN XL) 300 mg 24 hr tablet Take 300 mg by mouth once daily. traZODone (DESYREL) 50 mg tablet Taking 3 tabs LORazepam (ATIVAN) 0.5 mg tab Take 0.5 mg by mouth twice daily as needed. escitalopram oxalate (LEXAPRO) 20 mg tablet Taking one tablet daily. No current facility-administered medications for this visit. FAMILY HISTORY Problem Relation Age of Onset Allergies Mother Anesthesia Mother Headache Mother Obesity Mother Hypertension Father Heart Father Obesity Sister Allergies Sister Headache Sister Diabetes Maternal Grandmother Emphysema Maternal Grandmother Breast Cancer Maternal Grandmother Emphysema Maternal Grandfather Alcohol/Drug Paternal Grandfather Headache Daughter other (Pneumonia) Daughter Headache Daughter Headache Son other (RSV) Son Psychiatry Maternal Uncle Suicide Social History Tobacco Use Smoking status: Former Types: Cigarettes Quit date: 08/03/2005 Years since quittin.8 Smokeless tobacco: Never Vaping Use Vaping Use: Never used Substance Use Topics Alcohol use: Not Currently Comment: Rarely Drug use: No EXAM: BP 120/90 Pulse 78 Resp 18 Ht 165 cm (5' 4.96) Wt 121.1 kg (267 lb) LMP 01/03/2019 (Exact Date) SpO2 99% BMI 44.48 kg/m PHYSICAL EXAM: General Appearance: Well appearing, alert, in no acute distress, well-hydrated, well nourished.. Skin: Skin color, texture, turgor normal, no suspicious rashes or lesions. Head: Normocephalic, no masses, lesions, tenderness or abnormalities. Eyes: Anicteric sclera. Pupils are equally round and reactive to light. Extraocular movements are intact. . Neurologic: Gait normal. ASSESSMENT/PLAN: 1. Elevated liver enzymes - ICD9: 790.5, ICD10: R74.8 (primary diagnosis) Trending down. Repeat liver enzymes later this week to ensure returns to normal. Continue to avoid ETOH/tylenol. - HEPATIC FUNCTION PNL 2. Gallbladder polyp - ICD9: 575.6, ICD10: K82.4 Plan to repeat ultrasound in 6 months. - US ABD RT UPPER QUADRANT 3. Obesity, Class III, BMI 40-49.9 (morbid obesity) (HCC) - ICD9: 278.01, ICD10: E66.01 Re-consult: - [facility] Discussed treatment plan and patient voices understanding. Patient's questions answered appropriately. Medications and potential side effects were discussed and patient voices understanding. Return to the office as scheduled or as needed for worsening/no improvement. Brigette Martin APRN.RENETTA This note was partially generated using NextNine voice recognition system. Note was reviewed for accuracy. There may be minor misspellings or grammar miscues with NextNine voice recognition. documented in this encounter [facility] 06-16-2022 History of Present illness Narrative Radiology Service Progress Note PATIENT NAME: Marquita Omalley DATE OF SERVICE: June 16, 2022 TIME: 1:51 PM PATIENT IDENTITY VERIFICATION COMPLETED USING TWO (2) IDENTIFIERS: Name and Date of confirmed by patient verbally. FALL SCREENING: Has the patient had 2 falls in the last year or 1 fall with injury or currently using an Ambulatory Assistive Device (Walker, Cane, Wheelchair, Crutches, etc.)? No PATIENT GENDER DATA: Female. status: : No status: NO. PATIENT RELEVANT IMPLANT DATA REVIEWED: Not Applicable RADIOLOGY DEPARTMENT: Ultrasound PERIPHERAL IV DATA: Not applicable SIGNED BY: Jing Walters RDMS June 16, 2022 1:51 PM Radiology Service Progress Note PATIENT NAME: Marquita Omalley DATE OF SERVICE: June 16, 2022 TIME: 1:51 PM PATIENT IDENTITY VERIFICATION COMPLETED USING TWO (2) IDENTIFIERS: Name and Date of confirmed by patient verbally. FALL SCREENING: Has the patient had 2 falls in the last year or 1 fall with injury or currently using an Ambulatory Assistive Device (Walker, Cane, Wheelchair, Crutches, etc.)? No PATIENT GENDER DATA: Female. status: : No status: NO. PATIENT RELEVANT IMPLANT DATA REVIEWED: Not Applicable RADIOLOGY DEPARTMENT: Ultrasound PERIPHERAL IV DATA: Not applicable SIGNED BY: Jing Walters RDMS June 16, 2022 1:51 PM documented in this encounter [facility] 06-14-2022 Miscellaneous Notes Contacted patient and scheduled. Heather Edward Pss TC to pt, notified of results/provider response. Pt denies alcohol/tylenol use. She does note discomfort on L side below ribs. +nausea +vomiting; no change in bowels. Schedulers please assist pt with scheduling liver ultrasound. Audi Waters LPN Can please let patient know that I received a message from Rain anderson: her lab results. Her liver enzymes are elevated. Please check with patient if she has had any recent alcohol or tylenol use. Has she been having any abdominal pain? I went ahead and put some additional labwork orders in. Please encourage her to return later this week to have these done. I also put an order in for her to get a liver ultrasound. Please help schedule. Brigette Martin APRN.CNP documented in this encounter [facility] 02-13-2022 Nurse Note Patient reports she passed a lot of air rectally but seems to be 'filling right back up' so pain is still a 3, located in mid abdominal area. Will proceed with dressing for discharge at this time. Returned to restroom again, feels 'air building up again. Ambulated with minimal assistance to restroom. Ambulated to restroom with assist of one due to gas pain, abdomen is tightly distended, encouraged her to lean forward on toilet, patient immediately passing air rectally. Arrived in phase II via cart left lateral position, eyes closed but open to verbal stimuli, skin warm and dry, respirations regular and unlabored. Denies pain or nausea, abdomen is rounded and somewhat firm to light palpation, encouraged to pass air rectally as able. Will leave oxygen on at 2L per NC due to initial pulse ox 87-90% on room air. Patient has history of sleep apnea. documented in this encounter [facility] 02-13-2022 History and physical note Images from the original note were not included. HISTORY AND PHYSICAL Marquita Omalley 1975 REFERRING PHYSICIAN: Brigette Martin APRN.C* CHIEF COMPLAINT: Consult (colonoscopy) HPI: The patient is a 46 year old female referred for endoscopy. Marquita notes no colon complaints. Patient denies any change in bowel habits, weight changes, blood in stools, black tarry stools or abdominal pain. Notes family history of colon polyps. The patient notes no upper GI complaints. Marquita has not undergone prior endoscopy. Patient's past medical history is significant for sleep apnea, asthma, anxiety. Routine meds include buproprion, trazodone, lorazepam in addition to her CPAP and albuterol. She follows with Brigette Martin CNP in primary care. Patient denies chest pain, shortness of breath or recent hospitalizations. Denies problems with sedation in the past. PAST MEDICAL HISTORY PAST MEDICAL HISTORY Diagnosis Date Anxiety Chest pain Depression Ear infection Migraines Obesity, Class II, BMI 35-39.9 02/20/2019 PTSD (post-traumatic stress disorder) Sciatica UTI (lower urinary tract infection) PAST SURGICAL HISTORY PAST SURGICAL HISTORY Procedure Laterality Date APPENDECTOMY 1982 COLPOPEXY VAGINAL INTRAPERITONEAL APPROACH 01/23/2019 uterosacral ligament fixation LIG/TRNSXJ FLP TUBE ABDL/VAG APPR UNI/BI 06/2007 MAMMO MAMMOGRAM 07/20/2010 OTHER lumbar spinal fusion L5-S1 PAST SURGICAL HISTORY OF 09/2008 Micro Disectomy L5S1 PAST SURGICAL HISTORY OF Left 2013 Left wrist surgery POST COLPORRHAPHY RECTOCELE W/WO PERINEORRHAPHY 01/23/2019 posterior repair REDUCTION OF LARGE BREAST 09/2006 Bilateral SLING OPER STRES INCONTINENCE 01/23/2019 TVT exact VAGINAL HYSTERECTOMY UTERUS 250 GM/< 01/23/2019 tubes and ovaries remain CURRENT MEDICATIONS Current Outpatient Medications Medication Sig ARIPiprazole (ABILIFY) 5 mg tablet Take 5 mg by mouth once daily. CPAP auto titrating PAP device 5-10 cmH2O with humidification. A medium Rich and Paykel Eson 2 nasal mask without chin strap to be used. albuterol HFA (PROVENTIL HFA, VENTOLIN HFA) 90 mcg/actuation inhaler Inhale 2 Puffs as instructed four times daily as needed. buPROPion XL (WELLBUTRIN XL) 300 mg 24 hr tablet Take 300 mg by mouth once daily. traZODone (DESYREL) 50 mg tablet Taking 3 tabs LORazepam (ATIVAN) 0.5 mg tab Take 0.5 mg by mouth twice daily as needed. escitalopram oxalate (LEXAPRO) 20 mg tablet Taking one tablet daily. No current facility-administered medications for this visit. ALLERGIES: Lyrica [Pregabalin], Seasonal Allergies, and Sulfa (Sulfonamide Antibiotics) PERSONAL HISTORY: SOCIAL HISTORY Social History Tobacco Use Smoking status: Former Smoker Types: Cigarettes Quit date: 08/03/2005 Years since quittin.3 Smokeless tobacco: Never Used Vaping Use Vaping Use: Never used Substance Use Topics Alcohol use: Not Currently Comment: Rarely Drug use: No FAMILY HISTORY: FAMILY HISTORY FAMILY HISTORY Problem Relation Age of Onset Allergies Mother Anesthesia Mother Headache Mother Obesity Mother Hypertension Father Heart Father Obesity Sister Allergies Sister Headache Sister Diabetes Maternal Grandmother Emphysema Maternal Grandmother Breast Cancer Maternal Grandmother Emphysema Maternal Grandfather Alcohol/Drug Paternal Grandfather Headache Daughter other (Pneumonia) Daughter Headache Daughter Headache Son other (RSV) Son Psychiatry Maternal Uncle Suicide REVIEW OF SYMPTOMS: The review of systems data was entered by the nurse and reviewed by ia Nursing Notes: Ludin Barnett LPN 12/09/2021 10:06 AM Signed REVIEW OF SYSTEMS: General: The patient denies fatigue, denies weight loss, notes weight gain, denies feeling hot, and denies feelings of cold. Eyes: The patient denies glaucoma, denies eye injury/surgery, wears glasses or contacts. Ear/Nose/Throat: The patient notes allergies, denies hayfever, denies ear infections, and denies bloody noses. Cardiovascular: The patient denies chest pain, denies heart disease, denies high blood pressure,denies cardiac stent, denies prior heart attack, denies irregular heart beat, denies high cholesterol, denies poor circulation, denies heart failure, other cardiac issues, denies claudication, denies cold feet, denies peripheral arterial stent. Respiratory: The patient denies tuberculosis, denies pneumonia, denies frequent cough, denies pulmonary embolism, denies shortness of breath, and denies coughing up blood. Gastrointestinal: The patient denies difficulty swallowing, denies acid reflux, denies ulcers, denies vomiting, denies jaundice/hepatitis, denies gallbladder problems, denies black or tarry stools, denies hemorrhoids, denies bleeding from rectum, denies diverticulitis, denies constipation, denies diarrhea, denies loss of stool control, and denies hernias. Kidney/Bladder: The patient denies kidney stones, denies urine infections, and denies bloody urine. Skin: The patient denies a history of skin cancer, denies bleeding/changing moles, and denies a history of skin rash. Neurologic: The patient denies a history of epilepsy/convulsions, notes headaches, denies head/spinal injuries, and denies stroke/TIA. Psychiatric: The patient notes psychiatric medications, notes depression, and denies voices, denies substance abuse. Endocrine: The patient denies thyroid disorders, denies diabetes, and denies hormonal problems. Hematologic: The patient denies a history of bruising, denies bleeding, and denies anemia, denies blood clots. Infections: The patient denies a history of measles and mumps, denies rheumatic fever, and denies sexually transmitted diseases. Musculoskeletal: The patient notes back pain/injury, notes back problems, denies sciatica, denies knee/foot trouble, denies arthritis, or denies gout. When was patient's last Mammogram screening? 2020 Last Colonoscopy: none Ludin Barnett LPN I have confirmed and edited as necessary, the PFSH and ROS obtained by others. Taylor Champion PA-C PHYSICAL EXAMINATION: General: The patient is 46 year old female, well nourished, well hydrated in no acute distress. The patient is oriented to time, place, and person. VITALS: Blood pressure 150/88, pulse 85, temperature 36.6 C (97.9 F), height 162.6 cm (5' 4), weight 112.5 kg (248 lb), last menstrual period 01/03/2019, SpO2 95 %. Body mass index is 42.57 kg/m . HEENT: Normal cephalic, ataumatic, pupils are equally round, sclera are anicteric, mucous membranes are moist, oropharynx is clear. Neck has no masses, asymmetry or lymphadenopathy. Respiratory: Clear to auscultation and percussion. Normal respiratory excursion and pattern. Cardiac: Examination is regular rate and rhythm. Normal S1/S2 Abdominal exam: Soft, nontender, with no palpable masses. No hepatosplenomegaly. No palpable hernias. Extremities: no clubbing, cyanosis or edema. No adenopathy. LABORATORY VALUES: As Noted RADIOLOGIC STUDIES: As Noted Assessment IMPRESSION: encounter for screening colonoscopy PLAN: I have reviewed my findings with the surgeon. Will plan for lower endoscopy. We discussed the risks and benefits of the planned endoscopy. I have informed the patient that complications can occur including failure to complete the endoscopy and perforation. The patient had the opportunity to ask questions concerning the planned endoscopy. My staff has also explained the procedure to the patient in understandable terms and has given the patient printed material concerning the procedure. The patient freely consents to surgery. The patient was offered a surgery/procedure at a [facility] facility. I have counseled the patient regarding the risk of exposure to and/or potential harm posed by the COVID-19 virus with having a surgery/procedure at this time versus the risk of delaying the surgery/procedure. It is not possible to know either the risk of delaying the surgery or procedure or chance of getting an infection with perfect accuracy, but a joint decision was made between the patient and myself to proceed at this time with endoscopy. I plan to use Golytely bowel preparation I have explained to the patient the difference between IV conscious sedation and MAC anesthesia - and I have offered either, according to the patient's wishes. I have explained that with IV conscious sedation there is no anesthesia provider available and therefore there is a limitation of the amount of IV medications that can be given and that the patient may wake up in the middle of the procedure and/or experience pain/discomfort during the procedure. Discussed increased risk of recall based on patient's medication profile. Discussed that if patient unable to be adequately sedated with conscious sedation, procedure may have to be aborted and repeated under Monitored Anesthetic Care. Further discussion was done and the patient was given the opportunity to ask questions and all questions were answered. The patient chooses IV conscious sedation Diagnoses: (Z12.11) Encounter for screening for malignant neoplasm of colon (primary encounter diagnosis) (Z83.71) Family history of colonic polyps Consultation requested by Brigette Martin CNP for an opinion regarding screening colonoscopy. My final recommendations will be communicated back to the requesting physician by way of shared Medical record or letter to requesting physician via US mail. Taylor Champion PA-C UPDATED HISTORY AND PHYSICAL EXAMINATION SERVICE DATE: 02/13/2022 SERVICE TIME: 10:34 AM PHYSICAL EXAM MUST BE COMPLETED ON ADMISSION The History and Physical (completed in the past 30 days) has been reviewed and the patient has been examined. The contents accurately reflect the patient's condition with the following additions or revisions since the H&P was completed. Examination indicates no changes. This H&P can be found in the attached. SIGNATURE: Leora Ha III, MD PATIENT NAME: Marquita Omalley DATE: February 13, 2022 TIME: 10:34 AM documented in this encounter [facility] 01-09-2022 Miscellaneous Notes January 09, 2022 PID: [id number] Marquita Omalley [address] [place] [address] Dear Lyssa, We are pleased to inform you that the results of your recent breast imaging exam on 01/09/2022 are normal. Early detection of cancer is very important. We also understand recommendations regarding breast cancer screening are controversial. Please discuss with your primary care provider which strategy is best for you and whether a mammogram is right for you. Your imaging studies and report will be kept on file at [facility] as part of your permanent medical record and are available for your continuing care. Thank you for allowing us to help in meeting your health care needs. Sincerely, Dr. Berrios Interpreting Radiologist [facility] (Normal over 40) documented in this encounter [facility] 01-09-2022 History of Present illness Narrative Radiology Service Progress Note PATIENT NAME: Marquita Omalley DATE OF SERVICE: January 09, 2022 TIME: 8:04 AM PATIENT IDENTITY VERIFICATION COMPLETED USING TWO (2) IDENTIFIERS: Name and Date of confirmed by patient verbally. FALL SCREENING: Has the patient had 2 falls in the last year or 1 fall with injury or currently using an Ambulatory Assistive Device (Walker, Cane, Wheelchair, Crutches, etc.)? No PATIENT GENDER DATA: Female. status: : No status: NO. PATIENT RELEVANT IMPLANT DATA REVIEWED: Not Applicable RADIOLOGY DEPARTMENT: Mammography PERIPHERAL IV DATA: Not applicable SIGNED BY: RT Mariama(R) January 09, 2022 8:04 AM documented in this encounter [facility] 12-09-2021 History of Present illness Narrative HISTORY AND PHYSICAL Marquita Omalley 1975 REFERRING PHYSICIAN: Brigette Martin APRN.C* CHIEF COMPLAINT: Consult (colonoscopy) HPI: The patient is a 46 year old female referred for endoscopy. Marquita notes no colon complaints. Patient denies any change in bowel habits, weight changes, blood in stools, black tarry stools or abdominal pain. Notes family history of colon polyps. The patient notes no upper GI complaints. Marquita has not undergone prior endoscopy. Patient's past medical history is significant for sleep apnea, asthma, anxiety. Routine meds include buproprion, trazodone, lorazepam in addition to her CPAP and albuterol. She follows with Brigette Martin CNP in primary care. Patient denies chest pain, shortness of breath or recent hospitalizations. Denies problems with sedation in the past. PAST MEDICAL HISTORY Diagnosis Date Anxiety Chest pain Depression Ear infection Migraines Obesity, Class II, BMI 35-39.9 02/20/2019 PTSD (post-traumatic stress disorder) Sciatica UTI (lower urinary tract infection) PAST SURGICAL HISTORY Procedure Laterality Date APPENDECTOMY 1983 COLPOPEXY VAGINAL INTRAPERITONEAL APPROACH 01/23/2019 uterosacral ligament fixation LIG/TRNSXJ FLP TUBE ABDL/VAG APPR UNI/BI 06/2007 MAMMO MAMMOGRAM 07/20/2010 OTHER lumbar spinal fusion L5-S1 PAST SURGICAL HISTORY OF 09/2008 Micro Disectomy L5S1 PAST SURGICAL HISTORY OF Left 2013 Left wrist surgery POST COLPORRHAPHY RECTOCELE W/WO PERINEORRHAPHY 01/23/2019 posterior repair REDUCTION OF LARGE BREAST 09/2006 Bilateral SLING OPER STRES INCONTINENCE 01/23/2019 TVT exact VAGINAL HYSTERECTOMY UTERUS 250 GM/< 01/23/2019 tubes and ovaries remain Current Outpatient Medications Medication Sig ARIPiprazole (ABILIFY) 5 mg tablet Take 5 mg by mouth once daily. CPAP auto titrating PAP device 5-10 cmH2O with humidification. A medium Rich and [employer] Eson 2 nasal mask without chin strap to be used. albuterol HFA (PROVENTIL HFA, VENTOLIN HFA) 90 mcg/actuation inhaler Inhale 2 Puffs as instructed four times daily as needed. buPROPion XL (WELLBUTRIN XL) 300 mg 24 hr tablet Take 300 mg by mouth once daily. traZODone (DESYREL) 50 mg tablet Taking 3 tabs LORazepam (ATIVAN) 0.5 mg tab Take 0.5 mg by mouth twice daily as needed. escitalopram oxalate (LEXAPRO) 20 mg tablet Taking one tablet daily. No current facility-administered medications for this visit. ALLERGIES: Lyrica [Pregabalin], Seasonal Allergies, and Sulfa (Sulfonamide Antibiotics) PERSONAL HISTORY: Social History Tobacco Use Smoking status: Former Smoker Types: Cigarettes Quit date: 08/03/2005 Years since quittin.3 Smokeless tobacco: Never Used Vaping Use Vaping Use: Never used Substance Use Topics Alcohol use: Not Currently Comment: Rarely Drug use: No FAMILY HISTORY: FAMILY HISTORY Problem Relation Age of Onset Allergies Mother Anesthesia Mother Headache Mother Obesity Mother Hypertension Father Heart Father Obesity Sister Allergies Sister Headache Sister Diabetes Maternal Grandmother Emphysema Maternal Grandmother Breast Cancer Maternal Grandmother Emphysema Maternal Grandfather Alcohol/Drug Paternal Grandfather Headache Daughter other (Pneumonia) Daughter Headache Daughter Headache Son other (RSV) Son Psychiatry Maternal Uncle Suicide REVIEW OF SYMPTOMS: The review of systems data was entered by the nurse and reviewed by ia Nursing Notes: Ludin Barnett LPN 12/09/2021 10:06 AM Signed REVIEW OF SYSTEMS: General: The patient denies fatigue, denies weight loss, notes weight gain, denies feeling hot, and denies feelings of cold. Eyes: The patient denies glaucoma, denies eye injury/surgery, wears glasses or contacts. Ear/Nose/Throat: The patient notes allergies, denies hayfever, denies ear infections, and denies bloody noses. Cardiovascular: The patient denies chest pain, denies heart disease, denies high blood pressure,denies cardiac stent, denies prior heart attack, denies irregular heart beat, denies high cholesterol, denies poor circulation, denies heart failure, other cardiac issues, denies claudication, denies cold feet, denies peripheral arterial stent. Respiratory: The patient denies tuberculosis, denies pneumonia, denies frequent cough, denies pulmonary embolism, denies shortness of breath, and denies coughing up blood. Gastrointestinal: The patient denies difficulty swallowing, denies acid reflux, denies ulcers, denies vomiting, denies jaundice/hepatitis, denies gallbladder problems, denies black or tarry stools, denies hemorrhoids, denies bleeding from rectum, denies diverticulitis, denies constipation, denies diarrhea, denies loss of stool control, and denies hernias. Kidney/Bladder: The patient denies kidney stones, denies urine infections, and denies bloody urine. Skin: The patient denies a history of skin cancer, denies bleeding/changing moles, and denies a history of skin rash. Neurologic: The patient denies a history of epilepsy/convulsions, notes headaches, denies head/spinal injuries, and denies stroke/TIA. Psychiatric: The patient notes psychiatric medications, notes depression, and denies voices, denies substance abuse. Endocrine: The patient denies thyroid disorders, denies diabetes, and denies hormonal problems. Hematologic: The patient denies a history of bruising, denies bleeding, and denies anemia, denies blood clots. Infections: The patient denies a history of measles and mumps, denies rheumatic fever, and denies sexually transmitted diseases. Musculoskeletal: The patient notes back pain/injury, notes back problems, denies sciatica, denies knee/foot trouble, denies arthritis, or denies gout. When was patient's last Mammogram screening? 2020 Last Colonoscopy: none Ludin Barnett LPN I have confirmed and edited as necessary, the PFSH and ROS obtained by others. Taylor Champion PA-C PHYSICAL EXAMINATION: General: The patient is 46 year old female, well nourished, well hydrated in no acute distress. The patient is oriented to time, place, and person. VITALS: Blood pressure 150/88, pulse 85, temperature 36.6 C (97.9 F), height 162.6 cm (5' 4), weight 112.5 kg (248 lb), last menstrual period 01/03/2019, SpO2 95 %. Body mass index is 42.57 kg/m . HEENT: Normal cephalic, ataumatic, pupils are equally round, sclera are anicteric, mucous membranes are moist, oropharynx is clear. Neck has no masses, asymmetry or lymphadenopathy. Respiratory: Clear to auscultation and percussion. Normal respiratory excursion and pattern. Cardiac: Examination is regular rate and rhythm. Normal S1/S2 Abdominal exam: Soft, nontender, with no palpable masses. No hepatosplenomegaly. No palpable hernias. Extremities: no clubbing, cyanosis or edema. No adenopathy. LABORATORY VALUES: As Noted RADIOLOGIC STUDIES: As Noted Assessment IMPRESSION: encounter for screening colonoscopy PLAN: I have reviewed my findings with the surgeon. Will plan for lower endoscopy. We discussed the risks and benefits of the planned endoscopy. I have informed the patient that complications can occur including failure to complete the endoscopy and perforation. The patient had the opportunity to ask questions concerning the planned endoscopy. My staff has also explained the procedure to the patient in understandable terms and has given the patient printed material concerning the procedure. The patient freely consents to surgery. The patient was offered a surgery/procedure at a [facility] facility. I have counseled the patient regarding the risk of exposure to and/or potential harm posed by the COVID-19 virus with having a surgery/procedure at this time versus the risk of delaying the surgery/procedure. It is not possible to know either the risk of delaying the surgery or procedure or chance of getting an infection with perfect accuracy, but a joint decision was made between the patient and myself to proceed at this time with endoscopy. I plan to use Golytely bowel preparation I have explained to the patient the difference between IV conscious sedation and MAC anesthesia - and I have offered either, according to the patient's wishes. I have explained that with IV conscious sedation there is no anesthesia provider available and therefore there is a limitation of the amount of IV medications that can be given and that the patient may wake up in the middle of the procedure and/or experience pain/discomfort during the procedure. Discussed increased risk of recall based on patient's medication profile. Discussed that if patient unable to be adequately sedated with conscious sedation, procedure may have to be aborted and repeated under Monitored Anesthetic Care. Further discussion was done and the patient was given the opportunity to ask questions and all questions were answered. The patient chooses IV conscious sedation Diagnoses: (Z12.11) Encounter for screening for malignant neoplasm of colon (primary encounter diagnosis) (Z83.71) Family history of colonic polyps Consultation requested by Brigette Martin CNP for an opinion regarding screening colonoscopy. My final recommendations will be communicated back to the requesting physician by way of shared Medical record or letter to requesting physician via US mail. Taylor Champion PA-C documented in this encounter [facility] 12-09-2021 Nurse Note REVIEW OF SYSTEMS: General: The patient denies fatigue, denies weight loss, notes weight gain, denies feeling hot, and denies feelings of cold. Eyes: The patient denies glaucoma, denies eye injury/surgery, wears glasses or contacts. Ear/Nose/Throat: The patient notes allergies, denies hayfever, denies ear infections, and denies bloody noses. Cardiovascular: The patient denies chest pain, denies heart disease, denies high blood pressure,denies cardiac stent, denies prior heart attack, denies irregular heart beat, denies high cholesterol, denies poor circulation, denies heart failure, other cardiac issues, denies claudication, denies cold feet, denies peripheral arterial stent. Respiratory: The patient denies tuberculosis, denies pneumonia, denies frequent cough, denies pulmonary embolism, denies shortness of breath, and denies coughing up blood. Gastrointestinal: The patient denies difficulty swallowing, denies acid reflux, denies ulcers, denies vomiting, denies jaundice/hepatitis, denies gallbladder problems, denies black or tarry stools, denies hemorrhoids, denies bleeding from rectum, denies diverticulitis, denies constipation, denies diarrhea, denies loss of stool control, and denies hernias. Kidney/Bladder: The patient denies kidney stones, denies urine infections, and denies bloody urine. Skin: The patient denies a history of skin cancer, denies bleeding/changing moles, and denies a history of skin rash. Neurologic: The patient denies a history of epilepsy/convulsions, notes headaches, denies head/spinal injuries, and denies stroke/TIA. Psychiatric: The patient notes psychiatric medications, notes depression, and denies voices, denies substance abuse. Endocrine: The patient denies thyroid disorders, denies diabetes, and denies hormonal problems. Hematologic: The patient denies a history of bruising, denies bleeding, and denies anemia, denies blood clots. Infections: The patient denies a history of measles and mumps, denies rheumatic fever, and denies sexually transmitted diseases. Musculoskeletal: The patient notes back pain/injury, notes back problems, denies sciatica, denies knee/foot trouble, denies arthritis, or denies gout. When was patient's last Mammogram screening? 2020 Last Colonoscopy: none Ludin Barnett LPN documented in this encounter [facility] 11-03-2021 History of Present illness Narrative Consult scheduled with 11/25. Patient is overdue for colorectal screening. Patient needs consult prior to colonoscopy. Please contact patient to schedule. Thank you. Lovely Rodriguez RN documented in this encounter [facility] 11-29-2020 History of Present illness Narrative Radiology Service Progress Note PATIENT NAME: Marquita Omalley DATE OF SERVICE: November 29, 2020 TIME: 2:03 PM PATIENT IDENTITY VERIFICATION COMPLETED USING TWO (2) IDENTIFIERS: Name and Date of confirmed by patient verbally. FALL SCREENING: Has the patient had 2 falls in the last year or 1 fall with injury or currently using an Ambulatory Assistive Device (Walker, Cane, Wheelchair, Crutches, etc.)? No PATIENT GENDER DATA: Female. status: : No status: NO. PATIENT RELEVANT IMPLANT DATA REVIEWED: Not Applicable RADIOLOGY DEPARTMENT: General X-ray: Exam(s) Completed: Spine X-Ray(s): Lumbar AP / LAT / L5-S1 PERIPHERAL IV DATA: Not applicable SIGNED BY: RT Thalia(R) November 29, 2020 2:03 PM documented in this encounter [facility] Evaluation note Diagnosis Encounter for screening for malignant neoplasm of colon- Primary Special screening for malignant neoplasms, colon Family history of colonic polyps [facility] Diagnosis Encounter for screening mammogram for malignant neoplasm of breast Other screening mammogram [facility] Diagnosis Encounter for screening for malignant neoplasm of colon- Primary Special screening for malignant neoplasms, colon Screening for colon cancer Special screening for malignant neoplasms, colon [facility] Elevated liver enzymes- Primary Other nonspecific abnormal serum enzyme levels [facility] Diagnosis Elevated liver enzymes- Primary Other nonspecific abnormal serum enzyme levels Gallbladder polyp Cholesterolosis of gallbladder Obesity, Class III, BMI 40-49.9 (morbid obesity) (HCC) Morbid obesity [facility] Diagnosis Elevated liver enzymes- Primary Other nonspecific abnormal serum enzyme levels [facility] Diagnosis Elevated liver enzymes- Primary Other nonspecific abnormal serum enzyme levels Gallbladder polyp Cholesterolosis of gallbladder [facility] Diagnosis Candidiasis, cutaneous- Primary Candidiasis of skin and nails Facial lesion Unspecified disorder of skin and subcutaneous tissue [facility] Diagnosis Seborrheic keratosis- Primary Other seborrheic keratosis [facility] Diagnosis Psychological factors affecting morbid obesity (HCC)- Primary Psychic factors associated with diseases classified elsewhere [facility] Diagnosis Recurrent major depressive disorder, in full remission (HCC)- Primary Eating disorder, unspecified type [facility] Diagnosis Vitamin D deficiency- Primary Unspecified vitamin D deficiency [facility] Diagnosis Onset Date Resolution Status Elevated LFTs chronic Gallbladder polyp chronic [facility] Work Phone: Evaluation note* Diagnosis Eating disorder, unspecified type- Primary Recurrent major depressive disorder, in full remission (HCC) Anxiety Anxiety state, unspecified Psychological factors affecting morbid obesity (HCC) Psychic factors associated with diseases classified elsewhere [facility] Diagnosis Eating disorder, unspecified type- Primary Recurrent major depressive disorder, in full remission (HCC) Anxiety Anxiety state, unspecified Psychological factors affecting morbid obesity (HCC) Psychic factors associated with diseases classified elsewhere [facility] Diagnosis Eating disorder, unspecified type- Primary Recurrent major depressive disorder, in full remission (HCC) Anxiety Anxiety state, unspecified Psychological factors affecting morbid obesity (HCC) Psychic factors associated with diseases classified elsewhere [facility] Diagnosis Recurrent major depressive disorder, in full remission (HCC)- Primary Anxiety Anxiety state, unspecified Eating disorder, unspecified type Psychological factors affecting morbid obesity (HCC) Psychic factors associated with diseases classified elsewhere [facility] Diagnosis Onset Date Resolution Status Gallbladder polyp chronic NAFLD (nonalcoholic fatty liver disease) [facility] Work Phone: Evaluation note* Diagnosis Class 3 severe obesity with serious comorbidity and body mass index (BMI) of 40.0 to 44.9 in adult, unspecified obesity type (HCC)- Primary [facility] Diagnosis Morbid obesity (HCC)- Primary Morbid obesity Obstructive sleep apnea (adult) (pediatric) NAFLD (nonalcoholic fatty liver disease) Other chronic nonalcoholic liver disease [facility] Diagnosis Class 3 severe obesity with serious comorbidity and body mass index (BMI) of 40.0 to 44.9 in adult, unspecified obesity type (HCC) [facility] Diagnosis Encounter for screening mammogram for breast cancer [facility] Diagnosis Elevated liver enzymes Other nonspecific abnormal serum enzyme levels [facility] Diagnosis Class 3 obesity (HCC)- Primary Dietary counseling and surveillance Dietary surveillance and counseling [facility] Diagnosis Obesity, Class III, BMI 40-49.9 (morbid obesity) (HCC)- Primary Morbid obesity Dietary counseling and surveillance Dietary surveillance and counseling Morbid obesity (HCC) Morbid obesity Pre-op exam Preoperative examination, unspecified [facility] Diagnosis S/P laparoscopic sleeve gastrectomy- Primary Bariatric surgery status Obesity, Class II, BMI 35-39.9 Obesity, unspecified S/P bariatric surgery Bariatric surgery status [facility] Diagnosis Seasonal allergic rhinitis due to pollen- Primary [facility] Diagnosis Wellness examination- Primary Mild intermittent asthma without complication Unspecified asthma Obstructive sleep apnea (adult) (pediatric) Anxiety with depression Chronic insomnia Insomnia, unspecified [facility] Diagnosis Encounter for screening mammogram for breast cancer [facility] Diagnosis Mild intermittent asthma without complication Unspecified asthma [facility] Diagnosis Acute cough- Primary [facility] Diagnosis Class 1 obesity- Primary Dietary counseling and surveillance Dietary surveillance and counseling S/P laparoscopic sleeve gastrectomy Bariatric surgery status [facility] Diagnosis Obesity, Class I, BMI 30.0-34.9 (see actual BMI)- Primary Obesity, unspecified S/P laparoscopic sleeve gastrectomy Bariatric surgery status S/P bariatric surgery Bariatric surgery status [facility] Diagnosis Class 3 severe obesity with serious comorbidity and body mass index (BMI) of 40.0 to 44.9 in adult, unspecified obesity type (HCC) Pre-operative examination- Primary Preoperative examination, unspecified Anxiety with depression Migraine without aura, intractable, without status migrainosus Mild intermittent asthma without complication Unspecified asthma NAFLD (nonalcoholic fatty liver disease) Other chronic nonalcoholic liver disease Obstructive sleep apnea (adult) (pediatric) Von Willebrand disease (HCC) Von Willebrand's disease History of lumbar fusion Morbid obesity (HCC) Morbid obesity [facility] chronically ill note* Diagnosis Pre-operative examination- Primary Preoperative examination, unspecified Anxiety with depression Migraine without aura, intractable, without status migrainosus Mild intermittent asthma without complication Unspecified asthma NAFLD (nonalcoholic fatty liver disease) Other chronic nonalcoholic liver disease Obstructive sleep apnea (adult) (pediatric) Von Willebrand disease (HCC) Von Willebrand's disease History of lumbar fusion Morbid obesity (HCC) Morbid obesity Neck pain on left side- Primary Cervicalgia Acute pain of left shoulder URI, acute Acute upper respiratory infections of unspecified site Dulce vaginitis Candidiasis of vulva and vagina Acute non-recurrent pansinusitis [facility] Acute left-sided low back pain with left-sided sciatica Pre-operative examination- Primary Preoperative examination, unspecified Anxiety with depression Migraine without aura, intractable, without status migrainosus Mild intermittent asthma without complication Unspecified asthma NAFLD (nonalcoholic fatty liver disease) Other chronic nonalcoholic liver disease Obstructive sleep apnea (adult) (pediatric) Von Willebrand disease (HCC) Von Willebrand's disease History of lumbar fusion Morbid obesity (HCC) Morbid obesity [facility] Diagnosis Pre-operative examination- Primary Preoperative examination, unspecified Anxiety with depression Migraine without aura, intractable, without status migrainosus Mild intermittent asthma without complication Unspecified asthma NAFLD (nonalcoholic fatty liver disease) Other chronic nonalcoholic liver disease Obstructive sleep apnea (adult) (pediatric) Von Willebrand disease (HCC) Von Willebrand's disease History of lumbar fusion Morbid obesity (HCC) Morbid obesity Cervical radiculopathy- Primary Brachial neuritis or radiculitis nos [facility] Diagnosis Pre-operative examination- Primary Preoperative examination, unspecified Anxiety with depression Migraine without aura, intractable, without status migrainosus Mild intermittent asthma without complication Unspecified asthma NAFLD (nonalcoholic fatty liver disease) Other chronic nonalcoholic liver disease Obstructive sleep apnea (adult) (pediatric) Von Willebrand disease (HCC) Von Willebrand's disease History of lumbar fusion Morbid obesity (HCC) Morbid obesity NO SHOW- Primary [facility] Diagnosis Pre-operative examination- Primary Preoperative examination, unspecified Anxiety with depression Migraine without aura, intractable, without status migrainosus Mild intermittent asthma without complication Unspecified asthma NAFLD (nonalcoholic fatty liver disease) Other chronic nonalcoholic liver disease Obstructive sleep apnea (adult) (pediatric) Von Willebrand disease (HCC) Von Willebrand's disease History of lumbar fusion Morbid obesity (HCC) Morbid obesity Chronic insomnia- Primary Insomnia, unspecified Gastroesophageal reflux disease without esophagitis Esophageal reflux Cervical radiculopathy Brachial neuritis or radiculitis nos Primary hypertension Unspecified essential hypertension [facility] Diagnosis Pre-operative examination- Primary Preoperative examination, unspecified Anxiety with depression Migraine without aura, intractable, without status migrainosus Mild intermittent asthma without complication Unspecified asthma NAFLD (nonalcoholic fatty liver disease) Other chronic nonalcoholic liver disease Obstructive sleep apnea (adult) (pediatric) Von Willebrand disease (HCC) Von Willebrand's disease History of lumbar fusion Morbid obesity (HCC) Morbid obesity Class 1 obesity- Primary Dietary counseling and surveillance Dietary surveillance and counseling S/P laparoscopic sleeve gastrectomy Bariatric surgery status [facility] Diagnosis Pre-operative examination- Primary Preoperative examination, unspecified Anxiety with depression Migraine without aura, intractable, without status migrainosus Mild intermittent asthma without complication Unspecified asthma NAFLD (nonalcoholic fatty liver disease) Other chronic nonalcoholic liver disease Obstructive sleep apnea (adult) (pediatric) Von Willebrand disease (HCC) Von Willebrand's disease History of lumbar fusion Morbid obesity (HCC) Morbid obesity Cervical radiculopathy- Primary Brachial neuritis or radiculitis nos Primary hypertension Unspecified essential hypertension Acute bronchitis, unspecified organism Vaginal yeast infection Candidiasis of vulva and vagina Mild intermittent asthma without complication Unspecified asthma documented in this encounter [facility] note* Diagnosis Pre-operative examination- Primary Preoperative examination, unspecified Anxiety with depression Migraine without aura, intractable, without status migrainosus Mild intermittent asthma without complication Unspecified asthma NAFLD (nonalcoholic fatty liver disease) Other chronic nonalcoholic liver disease Obstructive sleep apnea (adult) (pediatric) Von Willebrand disease (HCC) Von Willebrand's disease History of lumbar fusion Morbid obesity (HCC) Morbid obesity Injury of left knee, initial encounter- Primary documented in this encounter [facility] note* Diagnosis Pre-operative examination- Primary Preoperative examination, unspecified Anxiety with depression Migraine without aura, intractable, without status migrainosus Mild intermittent asthma without complication Unspecified asthma NAFLD (nonalcoholic fatty liver disease) Other chronic nonalcoholic liver disease Obstructive sleep apnea (adult) (pediatric) Von Willebrand disease (HCC) Von Willebrand's disease History of lumbar fusion Morbid obesity (HCC) Morbid obesity Injury of left knee, initial encounter documented in this encounter [facility] note* Diagnosis Pre-operative examination- Primary Preoperative examination, unspecified Anxiety with depression Migraine without aura, intractable, without status migrainosus Mild intermittent asthma without complication Unspecified asthma NAFLD (nonalcoholic fatty liver disease) Other chronic nonalcoholic liver disease Obstructive sleep apnea (adult) (pediatric) Von Willebrand disease (HCC) Von Willebrand's disease History of lumbar fusion Morbid obesity (HCC) Morbid obesity Acute pain of left knee- Primary [facility] Diagnosis Pre-operative examination- Primary Preoperative examination, unspecified Anxiety with depression Migraine without aura, intractable, without status migrainosus Mild intermittent asthma without complication Unspecified asthma NAFLD (nonalcoholic fatty liver disease) Other chronic nonalcoholic liver disease Obstructive sleep apnea (adult) (pediatric) Von Willebrand disease (HCC) Von Willebrand's disease History of lumbar fusion Morbid obesity (HCC) Morbid obesity Primary osteoarthritis of both knees- Primary Primary localized osteoarthrosis, lower leg Acute pain of left knee [facility] Diagnosis Pre-operative examination- Primary Preoperative examination, unspecified Anxiety with depression Migraine without aura, intractable, without status migrainosus Mild intermittent asthma without complication Unspecified asthma NAFLD (nonalcoholic fatty liver disease) Other chronic nonalcoholic liver disease Obstructive sleep apnea (adult) (pediatric) Von Willebrand disease (HCC) Von Willebrand's disease History of lumbar fusion Morbid obesity (HCC) Morbid obesity S/P laparoscopic sleeve gastrectomy- Primary Bariatric surgery status Obesity, Class I, BMI 30.0-34.9 (see actual BMI) Obesity, unspecified Rash and nonspecific skin eruption Rash and other nonspecific skin eruption Intertrigo Other specified erythematous condition [facility] Diagnosis Pre-operative examination- Primary Preoperative examination, unspecified Anxiety with depression Migraine without aura, intractable, without status migrainosus Mild intermittent asthma without complication Unspecified asthma NAFLD (nonalcoholic fatty liver disease) Other chronic nonalcoholic liver disease Obstructive sleep apnea (adult) (pediatric) Von Willebrand disease (HCC) Von Willebrand's disease History of lumbar fusion Morbid obesity (HCC) Morbid obesity Acute pain of left knee- Primary [facility] Diagnosis Pre-operative examination- Primary Preoperative examination, unspecified Anxiety with depression Migraine without aura, intractable, without status migrainosus Mild intermittent asthma without complication Unspecified asthma NAFLD (nonalcoholic fatty liver disease) Other chronic nonalcoholic liver disease Obstructive sleep apnea (adult) (pediatric) Von Willebrand disease (HCC) Von Willebrand's disease History of lumbar fusion Morbid obesity (HCC) Morbid obesity Abnormal blood cell count- Primary [facility]* Diagnosis Pre-operative examination- Primary Preoperative examination, unspecified Anxiety with depression Migraine without aura, intractable, without status migrainosus Mild intermittent asthma without complication Unspecified asthma NAFLD (nonalcoholic fatty liver disease) Other chronic nonalcoholic liver disease Obstructive sleep apnea (adult) (pediatric) Von Willebrand disease (HCC) Von Willebrand's disease History of lumbar fusion Morbid obesity (HCC) Morbid obesity Acute pain of left knee- Primary [facility]* Diagnosis Pre-operative examination- Primary Preoperative examination, unspecified Anxiety with depression Migraine without aura, intractable, without status migrainosus Mild intermittent asthma without complication Unspecified asthma NAFLD (nonalcoholic fatty liver disease) Other chronic nonalcoholic liver disease Obstructive sleep apnea (adult) (pediatric) Von Willebrand disease (HCC) Von Willebrand's disease History of lumbar fusion Morbid obesity (HCC) Morbid obesity Vertigo- Primary Dizziness and giddiness Headache, unspecified headache type [facility]* Diagnosis Pre-operative examination- Primary Preoperative examination, unspecified Anxiety with depression Migraine without aura, intractable, without status migrainosus Mild intermittent asthma without complication Unspecified asthma NAFLD (nonalcoholic fatty liver disease) Other chronic nonalcoholic liver disease Obstructive sleep apnea (adult) (pediatric) Von Willebrand disease (HCC) Von Willebrand's disease History of lumbar fusion Morbid obesity (HCC) Morbid obesity Rash and nonspecific skin eruption Rash and other nonspecific skin eruption Intertrigo Other specified erythematous condition S/P laparoscopic sleeve gastrectomy Bariatric surgery status Obesity, Class I, BMI 30.0-34.9 (see actual BMI) Obesity, unspecified [facility]* Diagnosis Pre-operative examination- Primary Preoperative examination, unspecified Anxiety with depression Migraine without aura, intractable, without status migrainosus Mild intermittent asthma without complication (HCC) Unspecified asthma NAFLD (nonalcoholic fatty liver disease) Other chronic nonalcoholic liver disease Obstructive sleep apnea (adult) (pediatric) Von Willebrand disease (HCC) Von Willebrand's disease History of lumbar fusion Morbid obesity (HCC) Morbid obesity Acute pain of left knee- Primary documented in this encounter [facility] note* Diagnosis Pre-operative examination- Primary Preoperative examination, unspecified Anxiety with depression Migraine without aura, intractable, without status migrainosus Mild intermittent asthma without complication (HCC) Unspecified asthma NAFLD (nonalcoholic fatty liver disease) Other chronic nonalcoholic liver disease Obstructive sleep apnea (adult) (pediatric) Von Willebrand disease (HCC) Von Willebrand's disease History of lumbar fusion Morbid obesity (HCC) Morbid obesity Incisional hernia, without obstruction or gangrene- Primary Incisional hernia without mention of obstruction or gangrene Diastasis recti Diastasis of muscle [facility]* Diagnosis Pre-operative examination- Primary Preoperative examination, unspecified Anxiety with depression Migraine without aura, intractable, without status migrainosus Mild intermittent asthma without complication (HCC) Unspecified asthma NAFLD (nonalcoholic fatty liver disease) Other chronic nonalcoholic liver disease Obstructive sleep apnea (adult) (pediatric) Von Willebrand disease (HCC) Von Willebrand's disease History of lumbar fusion Morbid obesity (HCC) Morbid obesity Incisional hernia, without obstruction or gangrene Incisional hernia without mention of obstruction or gangrene documented in this encounter [facility] note* Diagnosis Pre-operative examination- Primary Preoperative examination, unspecified Anxiety with depression Migraine without aura, intractable, without status migrainosus Mild intermittent asthma without complication (HCC) Unspecified asthma NAFLD (nonalcoholic fatty liver disease) Other chronic nonalcoholic liver disease Obstructive sleep apnea (adult) (pediatric) Von Willebrand disease (HCC) Von Willebrand's disease History of lumbar fusion Morbid obesity (HCC) Morbid obesity Umbilical hernia without obstruction or gangrene- Primary Umbilical hernia without mention of obstruction or gangrene [facility] Diagnosis Pre-operative examination- Primary Preoperative examination, unspecified Anxiety with depression Migraine without aura, intractable, without status migrainosus Mild intermittent asthma without complication (HCC) Unspecified asthma NAFLD (nonalcoholic fatty liver disease) Other chronic nonalcoholic liver disease Obstructive sleep apnea (adult) (pediatric) Von Willebrand disease (HCC) Von Willebrand's disease History of lumbar fusion Morbid obesity (HCC) Morbid obesity Multiple lung nodules on CT- Primary documented in this encounter [facility] note* Diagnosis Pre-operative examination- Primary Preoperative examination, unspecified Anxiety with depression Migraine without aura, intractable, without status migrainosus Mild intermittent asthma without complication (HCC) Unspecified asthma NAFLD (nonalcoholic fatty liver disease) Other chronic nonalcoholic liver disease Obstructive sleep apnea (adult) (pediatric) Von Willebrand disease (HCC) Von Willebrand's disease History of lumbar fusion Morbid obesity (HCC) Morbid obesity Lung nodule- Primary Solitary pulmonary nodule [facility]* Diagnosis Pre-operative examination- Primary Preoperative examination, unspecified Anxiety with depression Migraine without aura, intractable, without status migrainosus Mild intermittent asthma without complication (HCC) Unspecified asthma NAFLD (nonalcoholic fatty liver disease) Other chronic nonalcoholic liver disease Obstructive sleep apnea (adult) (pediatric) Von Willebrand disease (HCC) Von Willebrand's disease History of lumbar fusion Morbid obesity (HCC) Morbid obesity Diastasis recti- Primary Diastasis of muscle Umbilical hernia without obstruction and without gangrene [facility] Diagnosis Pre-operative examination- Primary Preoperative examination, unspecified Anxiety with depression Migraine without aura, intractable, without status migrainosus Mild intermittent asthma without complication (HCC) Unspecified asthma NAFLD (nonalcoholic fatty liver disease) Other chronic nonalcoholic liver disease Obstructive sleep apnea (adult) (pediatric) Von Willebrand disease (HCC) Von Willebrand's disease History of lumbar fusion Morbid obesity (HCC) Morbid obesity Encounter for screening mammogram for breast cancer documented in this encounter [facility] note* Diagnosis Pre-operative examination- Primary Preoperative examination, unspecified Anxiety with depression Migraine without aura, intractable, without status migrainosus Mild intermittent asthma without complication (HCC) Unspecified asthma NAFLD (nonalcoholic fatty liver disease) Other chronic nonalcoholic liver disease Obstructive sleep apnea (adult) (pediatric) Von Willebrand disease (HCC) Von Willebrand's disease History of lumbar fusion Morbid obesity (HCC) Morbid obesity Class 1 obesity- Primary Dietary counseling and surveillance Dietary surveillance and counseling S/P laparoscopic sleeve gastrectomy Bariatric surgery status documented in this encounter [facility] note* Diagnosis Pre-operative examination- Primary Preoperative examination, unspecified Anxiety with depression Migraine without aura, intractable, without status migrainosus Mild intermittent asthma without complication (HCC) Unspecified asthma NAFLD (nonalcoholic fatty liver disease) Other chronic nonalcoholic liver disease Obstructive sleep apnea (adult) (pediatric) Von Willebrand disease (HCC) Von Willebrand's disease History of lumbar fusion Morbid obesity (HCC) Morbid obesity Rib pain on right side- Primary Chest pain, unspecified Contusion of rib on right side, initial encounter Rib pain on right side Chest pain, unspecified documented in this encounter [facility] note* Diagnosis Pre-operative examination- Primary Preoperative examination, unspecified Anxiety with depression Migraine without aura, intractable, without status migrainosus Mild intermittent asthma without complication (HCC) Unspecified asthma NAFLD (nonalcoholic fatty liver disease) Other chronic nonalcoholic liver disease Obstructive sleep apnea (adult) (pediatric) Von Willebrand disease (HCC) Von Willebrand's disease History of lumbar fusion Morbid obesity (HCC) Morbid obesity Rib pain on right side Chest pain, unspecified [facility] Diagnosis Pre-operative examination- Primary Preoperative examination, unspecified Anxiety with depression Migraine without aura, intractable, without status migrainosus Mild intermittent asthma without complication (HCC) Unspecified asthma NAFLD (nonalcoholic fatty liver disease) Other chronic nonalcoholic liver disease Obstructive sleep apnea (adult) (pediatric) Von Willebrand disease (HCC) Von Willebrand's disease History of lumbar fusion Morbid obesity (HCC) Morbid obesity Rib pain- Primary Chest pain, unspecified Mild intermittent asthma without complication (HCC) Unspecified asthma [facility] Diagnosis Pre-operative examination- Primary Preoperative examination, unspecified Anxiety with depression Migraine without aura, intractable, without status migrainosus Mild intermittent asthma without complication (HCC) Unspecified asthma NAFLD (nonalcoholic fatty liver disease) Other chronic nonalcoholic liver disease Obstructive sleep apnea (adult) (pediatric) Von Willebrand disease (HCC) Von Willebrand's disease History of lumbar fusion Morbid obesity (HCC) Morbid obesity Encounter for screening mammogram for breast cancer Encounter for screening mammogram for breast cancer [facility] Diagnosis Pre-operative examination- Primary Preoperative examination, unspecified Anxiety with depression Migraine without aura, intractable, without status migrainosus Mild intermittent asthma without complication (HCC) Unspecified asthma NAFLD (nonalcoholic fatty liver disease) Other chronic nonalcoholic liver disease Obstructive sleep apnea (adult) (pediatric) Von Willebrand disease (HCC) Von Willebrand's disease History of lumbar fusion Morbid obesity (HCC) Morbid obesity Routine physical examination- Primary Routine general medical examination at a health care facility Skin mole Benign neoplasm of skin, site unspecified Mild intermittent asthma, uncomplicated (HCC) Unspecified asthma [facility] Diagnosis Pre-operative examination- Primary Preoperative examination, unspecified Anxiety with depression Migraine without aura, intractable, without status migrainosus Mild intermittent asthma without complication (HCC) Unspecified asthma NAFLD (nonalcoholic fatty liver disease) Other chronic nonalcoholic liver disease Obstructive sleep apnea (adult) (pediatric) Von Willebrand disease (HCC) Von Willebrand's disease History of lumbar fusion Morbid obesity (HCC) Morbid obesity Seborrheic keratosis- Primary Other seborrheic keratosis [facility]* Diagnosis Pre-operative examination- Primary Preoperative examination, unspecified Anxiety with depression Migraine without aura, intractable, without status migrainosus Mild intermittent asthma without complication (HCC) Unspecified asthma NAFLD (nonalcoholic fatty liver disease) Other chronic nonalcoholic liver disease Obstructive sleep apnea (adult) (pediatric) Von Willebrand disease (HCC) Von Willebrand's disease History of lumbar fusion Morbid obesity (HCC) Morbid obesity Incisional hernia, without obstruction or gangrene- Primary Incisional hernia without mention of obstruction or gangrene documented in this encounter [facility] noteNo assessment information availableS[facility] Work Phone: Evaluation note* Diagnosis Pre-operative examination- Primary Preoperative examination, unspecified Anxiety with depression Migraine without aura, intractable, without status migrainosus Mild intermittent asthma without complication (HCC) Unspecified asthma NAFLD (nonalcoholic fatty liver disease) Other chronic nonalcoholic liver disease Obstructive sleep apnea (adult) (pediatric) Von Willebrand disease (HCC) Von Willebrand's disease History of lumbar fusion Morbid obesity (HCC) Morbid obesity Primary osteoarthritis of both knees- Primary Primary localized osteoarthrosis, lower leg documented in this encounter [facility] note* Diagnosis Pre-operative examination- Primary Preoperative examination, unspecified Anxiety with depression Migraine without aura, intractable, without status migrainosus Mild intermittent asthma without complication (HCC) Unspecified asthma NAFLD (nonalcoholic fatty liver disease) Other chronic nonalcoholic liver disease Obstructive sleep apnea (adult) (pediatric) Von Willebrand disease (HCC) Von Willebrand's disease History of lumbar fusion Morbid obesity (HCC) Morbid obesity Multiple benign nevi- Primary Benign neoplasm of skin, site unspecified Seborrheic keratosis Other seborrheic keratosis Lentigines Other dyschromia Sanchez angioma Nevus, non-neoplastic Skin cancer screening Screening for malignant neoplasm of the skin documented in this encounter [facility] note* Diagnosis Pre-operative examination- Primary Preoperative examination, unspecified Anxiety with depression Migraine without aura, intractable, without status migrainosus Mild intermittent asthma without complication (HCC) Unspecified asthma NAFLD (nonalcoholic fatty liver disease) Other chronic nonalcoholic liver disease Obstructive sleep apnea (adult) (pediatric) Von Willebrand disease (HCC) Von Willebrand's disease History of lumbar fusion Morbid obesity (HCC) Morbid obesity Symptomatic abdominal panniculus- Primary Localized adiposity History of weight loss History of bariatric surgery Bariatric surgery status Intertrigo Other specified erythematous condition documented in this encounter [facility] for referral (narrative)* Diagnostic Procedure Only (Routine) - Closed Specialty Diagnoses / Procedures Referred By Hipolito t Referred To Contact [facility] Diagnoses Encounter for screening mammogram for malignant neoplasm of breast Procedures IRIS SCREENING SCREENING MAMMOGRAPHY BI 2-VIEW BREAST INC Vianey Rendon APRN.CAREER SERVICES OFFICER [address] [place] [address] [facility] [address] [place] [address] Referral ID Status Reason Start Date Expiration Date V isits Requested Visits Authorized [id number] Closed Auto-Generate d Referral 12/14/2021 01/12/2023 1 1 [facility] for referral (narrative)* Outpatient Procedure (Routine) - Closed Specialty Diagnoses / Procedures Referred By Hipolito pearce Referred To Contact [facility] Diagnoses Screening for colon cancer Procedures COLONOSCOPY SCREENING COLONOSCOPY FLX DX W/COLLJ SPEC WHEN PFRMD Taylor Champion PA-C [address] [place] [address] [facility] [address] [place] [address] Referral ID Status Reason Start Date Expiration Date V isits Requested Visits Authorized [id number] Closed Auto-Generate d Referral 12/09/2021 12/09/2022 1 1 [facility] for referral (narrative)* Diagnostic Procedure Only (Routine) - Authorized Specialty Diagnoses / Procedures Referred By Howieac t Referred To Contact US IMAGING Diagnoses Elevated liver enzymes Procedures US ABD RT UPPER QUADRANT US ABDOMINAL REAL TIME W/IMAGE LIMITED Brigette Martin APRN.CAREER SERVICES OFFICER [address] [place] [address] Us Imaging Referral ID Status Reason Start Date Expiration Date Visits Requested Visits Authorized [id number] Authorized Auto-Generat ed Referral 06/14/2022 07/14/2023 1 1 [facility] for referral (narrative)* Outpatient Procedure (Routine) - Authorized Specialty Diagnoses / Procedures Referred By Contac t Referred To Contact [facility] Diagnoses Class 3 severe obesity with serious comorbidity and body mass index (BMI) of 40.0 to 44.9 in adult, unspecified obesity type (HCC) Procedures ECG COMPLETE ECG ROUTINE ECG W/LEAST 12 LDS W/I&R Zeenat Fowler APRN.CNP [address] [place] [address] [facility] [address] [place] [address] Referral ID Status Reason Start Date Expiration Date Visits Requested Visits Authorized [id number] Authorized Auto-Generat ed Referral 02/05/2023 02/05/2024 1 1 [facility] for referral (narrative)* Diagnostic Procedure Only (Routine) - Pending Review Specialty Diagnoses / Procedures Referred By Howieac t Referred To Contact [facility] Diagnoses Encounter for screening mammogram for breast cancer Procedures IRIS SCREENING SCREENING MAMMOGRAPHY BI 2-VIEW BREAST INC [facility] Brigette Martin APRN.CAREER SERVICES OFFICER [address] [place] [address] [facility] [address] [place] [address] Referral ID Status Reason Start Date Expiration Date Visits Requested Visits Authorized [id number] Pending Review Auto-Generat ed Referral 02/14/2023 03/15/2024 1 1 T [facility] for referral (narrative)* Diagnostic Procedure Only (Routine) - Closed Specialty Diagnoses / Procedures Referred By Contac t Referred To Contact [facility] Diagnoses Elevated liver enzymes Procedures US ABD RT UPPER QUADRANT US ABDOMINAL REAL TIME W/IMAGE LIMITED Brigette Martin APRN.CAREER SERVICES OFFICER [address] [place] [address] [place] [address] Referral ID Status Reason Start Date Expiration Date V isits Requested Visits Authorized [id number] Closed Auto-Generate d Referral 06/14/2022 07/14/2023 1 1 [facility] for referral (narrative)* Outpatient Procedure (Routine) - Authorized Specialty Diagnoses / Procedures Referred By Contac t Referred To Contact [facility] Diagnoses Mild intermittent asthma without complication Procedures SPIROMETRY - BASELINE AND POST DILATOR BRNCDILAT RSPSE SPMTRY PRE&POST-BRNCDILAT ADMN Brigette Martin APRN.CAREER SERVICES OFFICER [address] [place] [address] [facility] [address] [place] [address] Referral ID Status Reason Start Date Expiration Date Visits Requested Visits Authorized [id number] Authorized Auto-Generat ed Referral 09/19/2023 10/18/2024 1 1 [facility] for referral (narrative)* Diagnostic Procedure Only (Routine) - Closed Specialty Diagnoses / Procedures Referred By Contac t Referred To Contact [facility] Diagnoses Encounter for screening mammogram for breast cancer Procedures IRIS SCREENING SCREENING MAMMOGRAPHY BI 2-VIEW BREAST INC CAD Brigette Martin APRN.CAREER SERVICES OFFICER [address] [place] [address] [facility] [address] [place] [address] Referral ID Status Reason Start Date Expiration Date V isits Requested Visits Authorized [id number] Closed Auto-Generate d Referral 02/14/2023 03/15/2024 1 1 [facility] for referral (narrative)* Diagnostic Procedure Only (Routine) - Closed Specialty Diagnoses / Procedures Referred By Contac t Referred To Contact XR IMAGING Diagnoses Injury of left knee, initial encounter Procedures XR KNEE GENERAL 4V AP BOTH/PA BOTH/LAT/MERC LEFT RADIOLOGIC EXAM KNEE COMPLETE 4/MORE VIEWS Remedios Pepper, ICE BAG ASSEMBLER.CAREER SERVICES OFFICER [address] [place] [address] [place] [address] Referral ID Status Reason Start Date Expiration Date V isits Requested Visits Authorized [id number] Closed Auto-Generate d Referral 05/05/2024 06/04/2025 1 1 [facility] for referral (narrative)No reason for referral [facility] Phone: Reason for visit Narrative* Diagnostic Procedure Only (Routine) - Closed Specialty Diagnoses / Procedures Referred By Hipolito t Referred To Contact [facility] Diagnoses Encounter for screening mammogram for malignant neoplasm of breast Procedures IRIS SCREENING SCREENING MAMMOGRAPHY BI 2-VIEW BREAST INC CAD Vianey Martin, ICE BAG ASSEMBLER.CAREER SERVICES OFFICER [address] [place] [address] [facility] [address] [place] [address] Referral ID Status Reason Start Date Expiration Date V isits Requested Visits Authorized [id number] Closed Auto-Generate d Referral 12/14/2021 01/12/2023 1 1 [facility] for visit Narrative* Outpatient Procedure (Routine) - Closed Specialty Diagnoses / Procedures Referred By Hipolito t Referred To Contact [facility] Diagnoses Screening for colon cancer Procedures COLONOSCOPY SCREENING COLONOSCOPY FLX DX W/COLLJ SPEC WHEN PFRMD Taylor Champion PA-C [address] [place] [address] [facility] [address] [place] [address] Referral ID Status Reason Start Date Expiration Date V isits Requested Visits Authorized [id number] Closed Auto-Generate d Referral 12/09/2021 12/09/2022 1 1 [facility] for visit Narrative* Diagnostic Procedure Only (Routine) - Closed Specialty Diagnoses / Procedures Referred By Hipolito t Referred To Contact [facility] Diagnoses Encounter for screening mammogram for breast cancer Procedures IRIS SCREENING SCREENING MAMMOGRAPHY BI 2-VIEW BREAST INC CAD Brigette Martin, ICE BAG ASSEMBLER.CAREER SERVICES OFFICER [address] [place] [address] [facility] [address] [place] [address] Referral ID Status Reason Start Date Expiration Date V isits Requested Visits Authorized [id number] Closed Auto-Generate d Referral 02/14/2023 03/15/2024 1 1 [facility] for visit Narrative* Diagnostic Procedure Only (Routine) - Closed Specialty Diagnoses / Procedures Referred By Hipolito t Referred To Contact XR IMAGING Diagnoses Injury of left knee, initial encounter Procedures XR KNEE GENERAL 4V AP BOTH/PA BOTH/LAT/MERC LEFT RADIOLOGIC EXAM KNEE COMPLETE 4/MORE VIEWS Remedios Pepper, ICE BAG ASSEMBLER.CAREER SERVICES OFFICER [address] [place] [address] [place] [address] Referral ID Status Reason Start Date Expiration Date V isits Requested Visits Authorized [id number] Closed Auto-Generate d Referral 05/05/2024 06/04/2025 1 1 [facility] for visit Narrative* Diagnostic Procedure Only (Routine) - Closed Specialty Diagnoses / Procedures Referred By Hipolito t Referred To Contact CT IMAGING Diagnoses Incisional hernia, without obstruction or gangrene Procedures CT ABD/PEL W IVCON CT ABD & PELVIS W/CONTRAST Leora Ha MD [address] [place] [address] Phone: tel: fax: [place] [address] Referral ID Status Reason Start Date Expiration Date V isits Requested Visits Authorized [id number] Closed Auto-Generate d Referral 09/19/2024 05/13/2025 1 1 [facility] for visit Narrative* Consult, Test, Treat (Routine) - Closed Specialty Diagnoses / Procedures Referred By Hipolito t Referred To Contact [facility] Diagnoses Encounter for screening mammogram for breast cancer Procedures IRIS SCREENING W VIELKA SCREENING DIGITAL BREAST TOMOSYNTHESIS BI SCREENING MAMMOGRAPHY BI 2-VIEW BREAST INC CAD Brigette Martin, ICE BAG ASSEMBLER.CAREER SERVICES OFFICER [address] [place] [address] Phone: tel: fax: [facility] [address] [place] [address] Referral ID Status Reason Start Date Expiration Date V isits Requested Visits Authorized [id number] Closed Auto-Generate d Referral 11/06/2024 05/13/2025 1 1 [facility] Medications Administered Section Inactive Administered Medications - up to 3 most recent administrations Medication Order MAR Action Action Date Dose Rate Site fentaNYL 50 mcg/mL 25-100 mcg injection (SUBLIMAZE) 25-100 mcg, INTRAVENOUS, DIRECTED, Starting on Sun02/13/22 at 1100, Until Sun02/13/22 at 1459, DOSING DIRECTED BY PHYSICIAN FOR PROCEDURAL SEDATION ONLY, Intraprocedure Given 02/13/2022 10:55 AM EDT 50 mcg Given 02/13/2022 10:48 AM EDT 50 mcg lactated ringers iv infusion 30 mL/hr, INTRAVENOUS, CONTINUOUS, Starting on Sun02/13/22 at 1030, Until Sun02/13/22 at 1110, Preprocedure New Bag/Syringe/Bottle 02/13/2022 10:30 AM EDT 30 mL/hr 30 mL/hr midazolam (PF) 1-5 mg injection (VERSED) 1-5 mg, INTRAVENOUS, DIRECTED, Starting on Sun02/13/22 at 1100, Until Sun02/13/22 at 1459, DOSING DIRECTED BY PHYSICIAN FOR PROCEDURAL SEDATION ONLY, Intraprocedure Given 02/13/2022 10:50 AM EDT 2 mg Given 02/13/2022 10:48 AM EDT 4 mg Summary Purpose Family History No Family History Records Found Relationship Condition Age at Onset Recorded Date/T ernesto father Hypertension Unknown mother Migraine headache Unknown sister Migraine headache Unknown grandmother Diabetes mellitus Unknown Advance Directives No Advanced Directives Records Found Advance Directive Response Recorded Date/ Time Living Will No February 14 11:39am Power of Advertising Solicitor No February 14 021 11:39am Reason for Referral Specialty Diagnoses / Procedures Referred By Contac t Referred To Contact Diagnoses Obesity, Class III, BMI 40-49.9 (morbid obesity) (HCC) Procedures CONSULT [facility] OFFICE/OUTPATIENT [facility] 60-74 MINUTES Brigette Martin, ICE BAG ASSEMBLER.CAREER SERVICES OFFICER [address] [place] [address] Referral ID Status Reason Start Date Expiration Date Visits Requested Visits Authorized [id number] Pending Review PCP Requested Referral 06/19/2022 06/19/2023 1 1 Specialty Diagnoses / Procedures Referred By Contac t Referred To Contact [facility] Diagnoses Gallbladder polyp Procedures US ABD RT UPPER QUADRANT US ABDOMINAL REAL TIME W/IMAGE LIMITED Brigette Martin, ICE BAG ASSEMBLER.CAREER SERVICES OFFICER [address] [place] [address] Us Imaging Referral ID Status Reason Start Date Expiration Date Visits Requested Visits Authorized [id number] Pending Review Auto-Generat ed Referral 11/16/2022 07/19/2023 1 1 Specialty Diagnoses / Procedures Referred By Contac t Referred To Contact Gastroenterology Diagnoses Elevated liver enzymes Gallbladder polyp Procedures CONSULT TO GASTROENTEROLOGY OFFICE/OUTPATIENT NEW HIGH MDM 60-74 MINUTES Georgina Ramos, ICE BAG ASSEMBLER.CAREER SERVICES OFFICER [address] [place] [address] Referral ID Status Reason Start Date Expiration Date Visits Requested Visits Authorized [id number] Pending Review PCP Requested Referral 07/07/2022 07/07/2023 1 1 Specialty Diagnoses / Procedures Referred By Contac t Referred To Contact Dermatology Diagnoses Facial lesion Procedures CONSULT TO DERMATOLOGY Brigette Martin, ICE BAG ASSEMBLER.CAREER SERVICES OFFICER [address] [place] [address] Referral ID Status Reason Start Date Expiration Date Visits Requested Visits Authorized [id number] Ref Not Required PCP Requested Referral 08/02/2022 08/02/2023 1 1 Specialty Diagnoses / Procedures Referred By Contac t Referred To Contact Orthopedics Diagnoses Acute pain of left knee Procedures CONSULT PANEL TO ORTHOPAEDICS OFFICE/OUTPATIENT NEW HIGH MDM 60 MINUTES Remedios Pepper ICE BAG ASSEMBLER.CAREER SERVICES OFFICER [address] [place] [address] Referral ID Status Reason Start Date Expiration Date Visits Requested Visits Authorized [id number] Authorized PCP Requested Referral 05/15/2024 05/15/2025 1 1 Specialty Diagnoses / Procedures Referred By Contac t Referred To Contact [facility] Diagnoses Acute pain of left knee Procedures CONSULT TO PHYSICAL THERAPY PHYSICAL THERAPY EVALUATION HIGH COMPLEX 45 MINS Lisa Rodríguez PA-C [address] [place] [address] [facility] [address] [address] Referral ID Status Reason Start Date Expiration Date Visits Requested Visits Authorized [id number] Pending Review Auto-Generat ed Referral 05/19/2024 05/19/2025 1 1 Specialty Diagnoses / Procedures Referred By Contac t Referred To Contact Plastic Surgery Diagnoses Rash and nonspecific skin eruption Intertrigo S/P laparoscopic sleeve gastrectomy Obesity, Class I, BMI 30.0-34.9 (see actual BMI) Procedures CONSULT TO PLASTIC SURGERY OFFICE/OUTPATIENT [facility] 60 MINUTES Elana Noel MD [address] [place] [id number] Referral ID Status Reason Start Date Expiration Date Visits Requested Visits Authorized [id number] Authorized PCP Requested Referral 05/22/2024 08/20/2024 1 1 Specialty Diagnoses / Procedures Referred By Contac t Referred To Contact [facility] Diagnoses Vertigo Procedures CONSULT TO PHYSICAL THERAPY PHYSICAL THERAPY EVALUATION HIGH COMPLEX 45 MINS Brigette Martin APRN.CAREER SERVICES OFFICER [address] [place] [address] [facility] [address] [address] Referral ID Status Reason Start Date Expiration Date Visits Requested Visits Authorized [id number] Pending Review Auto-Generat ed Referral 06/11/2024 06/11/2025 1 1 Chief Complaint and Reason for Visit Chief Complaint Consult E ORDER Reason for Visit Elevated LFTs Gallbladder polyp Chief Complaint Consult E ORDER ELEVATED LFTS Reason for Visit Elevated LFTs Gallbladder polyp Chief Complaint ELEVATED LFTS E ORDERS 4 MO FU Reason for Visit Gallbladder polyp NAFLD (nonalcoholic fatty liver disease) Chief Complaint Admit Date 6 M FU December 24, 2024 7: 08am Health Concerns Infection Onset Date Last Indicated Resolved Time COVID-19 Confirmed 03/02/2023 03/02/2023 Problem Noted Date Diagnosed Date 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 Problem Noted Date Diagnosed Date 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 Problem Noted Date Diagnosed Date 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 Active Problems Noted Date Diagnosed Date 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 Additional Source Comments Source Comments (unrecognize d section and content) In the event this informatio n is protected by the Federal Confidentiality of Alcohol and Drug Abuse Patient Records regulations: The Federal rules restrict any use of the information to criminally investigate or prosecute any alcohol or drug abuse patient.[facility] the event this information is protected by the Federal Confidentiality of Alcohol and Drug Abuse Patient Records regulations: The Federal rules restrict any use of the information to criminally investigate or prosecute any alcohol or drug abuse patient.[facility] Hospital[facility] the event this information is protected by the Federal Confidentiality of Alcohol and Drug Abuse Patient Records regulations: The Federal rules restrict any use of the information to criminally investigate or prosecute any alcohol or drug abuse patient.[facility] Hospital[facility] the event this information is protected by the Federal Confidentiality of Alcohol and Drug Abuse Patient Records regulations: The Federal rules restrict any use of the information to criminally investigate or prosecute any alcohol or drug abuse patient.[facility] Hospital[facility] the event this information is protected by the Federal Confidentiality of Alcohol and Drug Abuse Patient Records regulations: The Federal rules restrict any use of the information to criminally investigate or prosecute any alcohol or drug abuse patient.[facility] HospitalIn the event this information is protected by the Federal Confidentiality of Alcohol and Drug Abuse Patient Records regulations: The Federal rules restrict any use of the information to criminally investigate or prosecute any alcohol or drug abuse patient.[facility] Hospital[facility] the event this information is protected by the Federal Confidentiality of Alcohol and Drug Abuse Patient Records regulations: The Federal rules restrict any use of the information to criminally investigate or prosecute any alcohol or drug abuse patient.[facility] Hospital[facility] the event this information is protected by the Federal Confidentiality of Alcohol and Drug Abuse Patient Records regulations: The Federal rules restrict any use of the information to criminally investigate or prosecute any alcohol or drug abuse patient.[facility] Hospital[facility] the event this information is protected by the Federal Confidentiality of Alcohol and Drug Abuse Patient Records regulations: The Federal rules restrict any use of the information to criminally investigate or prosecute any alcohol or drug abuse patient.[facility] Hospital[facility] the event this information is protected by the Federal Confidentiality of Alcohol and Drug Abuse Patient Records regulations: The Federal rules restrict any use of the information to criminally investigate or prosecute any alcohol or drug abuse patient.[facility] HospitalIn the event this information is protected by the Federal Confidentiality of Alcohol and Drug Abuse Patient Records regulations: The Federal rules restrict any use of the information to criminally investigate or prosecute any alcohol or drug abuse patient.[facility] the event this information is protected by the Federal Confidentiality of Alcohol and Drug Abuse Patient Records regulations: The Federal rules restrict any use of the information to criminally investigate or prosecute any alcohol or drug abuse patient.[facility] Hospital[facility] the event this information is protected by the Federal Confidentiality of Alcohol and Drug Abuse Patient Records regulations: The Federal rules restrict any use of the information to criminally investigate or prosecute any alcohol or drug abuse patient.[facility] HospitalIn the event this information is protected by the Federal Confidentiality of Alcohol and Drug Abuse Patient Records regulations: The Federal rules restrict any use of the information to criminally investigate or prosecute any alcohol or drug abuse patient.[facility] Hospital[facility] the event this information is protected by the Federal Confidentiality of Alcohol and Drug Abuse Patient Records regulations: The Federal rules restrict any use of the information to criminally investigate or prosecute any alcohol or drug abuse patient.[facility] HospitalIn the event this information is protected by the Federal Confidentiality of Alcohol and Drug Abuse Patient Records regulations: The Federal rules restrict any use of the information to criminally investigate or prosecute any alcohol or drug abuse patient.[facility] HospitalIn the event this information is protected by the Federal Confidentiality of Alcohol and Drug Abuse Patient Records regulations: The Federal rules restrict any use of the information to criminally investigate or prosecute any alcohol or drug abuse patient.[facility] HospitalIn the event this information is protected by the Federal Confidentiality of Alcohol and Drug Abuse Patient Records regulations: The Federal rules restrict any use of the information to criminally investigate or prosecute any alcohol or drug abuse patient.[facility] HospitalIn the event this information is protected by the Federal Confidentiality of Alcohol and Drug Abuse Patient Records regulations: The Federal rules restrict any use of the information to criminally investigate or prosecute any alcohol or drug abuse patient.[facility] HospitalIn the event this information is protected by the Federal Confidentiality of Alcohol and Drug Abuse Patient Records regulations: The Federal rules restrict any use of the information to criminally investigate or prosecute any alcohol or drug abuse patient.[facility] HospitalIn the event this information is protected by the Federal Confidentiality of Alcohol and Drug Abuse Patient Records regulations: The Federal rules restrict any use of the information to criminally investigate or prosecute any alcohol or drug abuse patient.[facility] HospitalIn the event this information is protected by the Federal Confidentiality of Alcohol and Drug Abuse Patient Records regulations: The Federal rules restrict any use of the information to criminally investigate or prosecute any alcohol or drug abuse patient.[facility] HospitalIn the event this information is protected by the Federal Confidentiality of Alcohol and Drug Abuse Patient Records regulations: The Federal rules restrict any use of the information to criminally investigate or prosecute any alcohol or drug abuse patient.[facility] HospitalIn the event this information is protected by the Federal Confidentiality of Alcohol and Drug Abuse Patient Records regulations: The Federal rules restrict any use of the information to criminally investigate or prosecute any alcohol or drug abuse patient.[facility] HospitalIn the event this information is protected by the Federal Confidentiality of Alcohol and Drug Abuse Patient Records regulations: The Federal rules restrict any use of the information to criminally investigate or prosecute any alcohol or drug abuse patient.[facility] HospitalIn the event this information is protected by the Federal Confidentiality of Alcohol and Drug Abuse Patient Records regulations: The Federal rules restrict any use of the information to criminally investigate or prosecute any alcohol or drug abuse patient.[facility] HospitalIn the event this information is protected by the Federal Confidentiality of Alcohol and Drug Abuse Patient Records regulations: The Federal rules restrict any use of the information to criminally investigate or prosecute any alcohol or drug abuse patient.[facility] HospitalIn the event this information is protected by the Federal Confidentiality of Alcohol and Drug Abuse Patient Records regulations: The Federal rules restrict any use of the information to criminally investigate or prosecute any alcohol or drug abuse patient.[facility] HospitalIn the event this information is protected by the Federal Confidentiality of Alcohol and Drug Abuse Patient Records regulations: The Federal rules restrict any use of the information to criminally investigate or prosecute any alcohol or drug abuse patient.[facility] HospitalIn the event this information is protected by the Federal Confidentiality of Alcohol and Drug Abuse Patient Records regulations: The Federal rules restrict any use of the information to criminally investigate or prosecute any alcohol or drug abuse patient.[facility] HospitalIn the event this information is protected by the Federal Confidentiality of Alcohol and Drug Abuse Patient Records regulations: The Federal rules restrict any use of the information to criminally investigate or prosecute any alcohol or drug abuse patient.[facility] HospitalIn the event this information is protected by the Federal Confidentiality of Alcohol and Drug Abuse Patient Records regulations: The Federal rules restrict any use of the information to criminally investigate or prosecute any alcohol or drug abuse patient.[facility] HospitalIn the event this information is protected by the Federal Confidentiality of Alcohol and Drug Abuse Patient Records regulations: The Federal rules restrict any use of the information to criminally investigate or prosecute any alcohol or drug abuse patient.[facility] HospitalIn the event this information is protected by the Federal Confidentiality of Alcohol and Drug Abuse Patient Records regulations: The Federal rules restrict any use of the information to criminally investigate or prosecute any alcohol or drug abuse patient.[facility] HospitalIn the event this information is protected by the Federal Confidentiality of Alcohol and Drug Abuse Patient Records regulations: The Federal rules restrict any use of the information to criminally investigate or prosecute any alcohol or drug abuse patient.[facility] HospitalIn the event this information is protected by the Federal Confidentiality of Alcohol and Drug Abuse Patient Records regulations: The Federal rules restrict any use of the information to criminally investigate or prosecute any alcohol or drug abuse patient.[facility] HospitalIn the event this information is protected by the Federal Confidentiality of Alcohol and Drug Abuse Patient Records regulations: The Federal rules restrict any use of the information to criminally investigate or prosecute any alcohol or drug abuse patient.[facility] HospitalIn the event this information is protected by the Federal Confidentiality of Alcohol and Drug Abuse Patient Records regulations: The Federal rules restrict any use of the information to criminally investigate or prosecute any alcohol or drug abuse patient.[facility] HospitalIn the event this information is protected by the Federal Confidentiality of Alcohol and Drug Abuse Patient Records regulations: The Federal rules restrict any use of the information to criminally investigate or prosecute any alcohol or drug abuse patient.[facility] HospitalIn the event this information is protected by the Federal Confidentiality of Alcohol and Drug Abuse Patient Records regulations: The Federal rules restrict any use of the information to criminally investigate or prosecute any alcohol or drug abuse patient.[facility] HospitalIn the event this information is protected by the Federal Confidentiality of Alcohol and Drug Abuse Patient Records regulations: The Federal rules restrict any use of the information to criminally investigate or prosecute any alcohol or drug abuse patient.[facility] HospitalIn the event this information is protected by the Federal Confidentiality of Alcohol and Drug Abuse Patient Records regulations: The Federal rules restrict any use of the information to criminally investigate or prosecute any alcohol or drug abuse patient.[facility] HospitalIn the event this information is protected by the Federal Confidentiality of Alcohol and Drug Abuse Patient Records regulations: The Federal rules restrict any use of the information to criminally investigate or prosecute any alcohol or drug abuse patient.[facility] HospitalIn the event this information is protected by the Federal Confidentiality of Alcohol and Drug Abuse Patient Records regulations: The Federal rules restrict any use of the information to criminally investigate or prosecute any alcohol or drug abuse patient.[facility] HospitalIn the event this information is protected by the Federal Confidentiality of Alcohol and Drug Abuse Patient Records regulations: The Federal rules restrict any use of the information to criminally investigate or prosecute any alcohol or drug abuse patient.[facility] HospitalIn the event this information is protected by the Federal Confidentiality of Alcohol and Drug Abuse Patient Records regulations: The Federal rules restrict any use of the information to criminally investigate or prosecute any alcohol or drug abuse patient.[facility] HospitalIn the event this information is protected by the Federal Confidentiality of Alcohol and Drug Abuse Patient Records regulations: The Federal rules restrict any use of the information to criminally investigate or prosecute any alcohol or drug abuse patient.[facility] HospitalIn the event this information is protected by the Federal Confidentiality of Alcohol and Drug Abuse Patient Records regulations: The Federal rules restrict any use of the information to criminally investigate or prosecute any alcohol or drug abuse patient.[facility] HospitalIn the event this information is protected by the Federal Confidentiality of Alcohol and Drug Abuse Patient Records regulations: The Federal rules restrict any use of the information to criminally investigate or prosecute any alcohol or drug abuse patient.[facility] HospitalIn the event this information is protected by the Federal Confidentiality of Alcohol and Drug Abuse Patient Records regulations: The Federal rules restrict any use of the information to criminally investigate or prosecute any alcohol or drug abuse patient.[facility] HospitalIn the event this information is protected by the Federal Confidentiality of Alcohol and Drug Abuse Patient Records regulations: The Federal rules restrict any use of the information to criminally investigate or prosecute any alcohol or drug abuse patient.[facility] HospitalIn the event this information is protected by the Federal Confidentiality of Alcohol and Drug Abuse Patient Records regulations: The Federal rules restrict any use of the information to criminally investigate or prosecute any alcohol or drug abuse patient.[facility] HospitalIn the event this information is protected by the Federal Confidentiality of Alcohol and Drug Abuse Patient Records regulations: The Federal rules restrict any use of the information to criminally investigate or prosecute any alcohol or drug abuse patient.[facility] HospitalIn the event this information is protected by the Federal Confidentiality of Alcohol and Drug Abuse Patient Records regulations: The Federal rules restrict any use of the information to criminally investigate or prosecute any alcohol or drug abuse patient.[facility] HospitalIn the event this information is protected by the Federal Confidentiality of Alcohol and Drug Abuse Patient Records regulations: The Federal rules restrict any use of the information to criminally investigate or prosecute any alcohol or drug abuse patient.[facility] HospitalIn the event this information is protected by the Federal Confidentiality of Alcohol and Drug Abuse Patient Records regulations: The Federal rules restrict any use of the information to criminally investigate or prosecute any alcohol or drug abuse patient.[facility] HospitalIn the event this information is protected by the Federal Confidentiality of Alcohol and Drug Abuse Patient Records regulations: The Federal rules restrict any use of the information to criminally investigate or prosecute any alcohol or drug abuse patient.[facility] HospitalIn the event this information is protected by the Federal Confidentiality of Alcohol and Drug Abuse Patient Records regulations: The Federal rules restrict any use of the information to criminally investigate or prosecute any alcohol or drug abuse patient.[facility] HospitalIn the event this information is protected by the Federal Confidentiality of Alcohol and Drug Abuse Patient Records regulations: The Federal rules restrict any use of the information to criminally investigate or prosecute any alcohol or drug abuse patient.[facility] HospitalIn the event this information is protected by the Federal Confidentiality of Alcohol and Drug Abuse Patient Records regulations: The Federal rules restrict any use of the information to criminally investigate or prosecute any alcohol or drug abuse patient.[facility] HospitalIn the event this information is protected by the Federal Confidentiality of Alcohol and Drug Abuse Patient Records regulations: The Federal rules restrict any use of the information to criminally investigate or prosecute any alcohol or drug abuse patient.[facility]In the event this information is protected by the Federal Confidentiality of Alcohol and Drug Abuse Patient Records regulations: The Federal rules restrict any use of the information to criminally investigate or prosecute any alcohol or drug abuse patient.[facility] HospitalIn the event this information is protected by the Federal Confidentiality of Alcohol and Drug Abuse Patient Records regulations: The Federal rules restrict any use of the information to criminally investigate or prosecute any alcohol or drug abuse patient.[facility] HospitalIn the event this information is protected by the Federal Confidentiality of Alcohol and Drug Abuse Patient Records regulations: The Federal rules restrict any use of the information to criminally investigate or prosecute any alcohol or drug abuse patient.[facility] HospitalIn the event this information is protected by the Federal Confidentiality of Alcohol and Drug Abuse Patient Records regulations: The Federal rules restrict any use of the information to criminally investigate or prosecute any alcohol or drug abuse patient.[facility] HospitalIn the event this information is protected by the Federal Confidentiality of Alcohol and Drug Abuse Patient Records regulations: The Federal rules restrict any use of the information to criminally investigate or prosecute any alcohol or drug abuse patient.[facility] HospitalIn the event this information is protected by the Federal Confidentiality of Alcohol and Drug Abuse Patient Records regulations: The Federal rules restrict any use of the information to criminally investigate or prosecute any alcohol or drug abuse patient.[facility] HospitalIn the event this information is protected by the Federal Confidentiality of Alcohol and Drug Abuse Patient Records regulations: The Federal rules restrict any use of the information to criminally investigate or prosecute any alcohol or drug abuse patient.[facility] HospitalIn the event this information is protected by the Federal Confidentiality of Alcohol and Drug Abuse Patient Records regulations: The Federal rules restrict any use of the information to criminally investigate or prosecute any alcohol or drug abuse patient.[facility] HospitalIn the event this information is protected by the Federal Confidentiality of Alcohol and Drug Abuse Patient Records regulations: The Federal rules restrict any use of the information to criminally investigate or prosecute any alcohol or drug abuse patient.[facility] HospitalIn the event this information is protected by the Federal Confidentiality of Alcohol and Drug Abuse Patient Records regulations: The Federal rules restrict any use of the information to criminally investigate or prosecute any alcohol or drug abuse patient.[facility] HospitalIn the event this information is protected by the Federal Confidentiality of Alcohol and Drug Abuse Patient Records regulations: The Federal rules restrict any use of the information to criminally investigate or prosecute any alcohol or drug abuse patient.[facility] HospitalIn the event this information is protected by the Federal Confidentiality of Alcohol and Drug Abuse Patient Records regulations: The Federal rules restrict any use of the information to criminally investigate or prosecute any alcohol or drug abuse patient.[facility] HospitalIn the event this information is protected by the Federal Confidentiality of Alcohol and Drug Abuse Patient Records regulations: The Federal rules restrict any use of the information to criminally investigate or prosecute any alcohol or drug abuse patient.[facility] HospitalIn the event this information is protected by the Federal Confidentiality of Alcohol and Drug Abuse Patient Records regulations: The Federal rules restrict any use of the information to criminally investigate or prosecute any alcohol or drug abuse patient.[facility] HospitalIn the event this information is protected by the Federal Confidentiality of Alcohol and Drug Abuse Patient Records regulations: The Federal rules restrict any use of the information to criminally investigate or prosecute any alcohol or drug abuse patient.[facility] HospitalIn the event this information is protected by the Federal Confidentiality of Alcohol and Drug Abuse Patient Records regulations: The Federal rules restrict any use of the information to criminally investigate or prosecute any alcohol or drug abuse patient.[facility] HospitalIn the event this information is protected by the Federal Confidentiality of Alcohol and Drug Abuse Patient Records regulations: The Federal rules restrict any use of the information to criminally investigate or prosecute any alcohol or drug abuse patient.[facility] HospitalIn the event this information is protected by the Federal Confidentiality of Alcohol and Drug Abuse Patient Records regulations: The Federal rules restrict any use of the information to criminally investigate or prosecute any alcohol or drug abuse patient.[facility] HospitalIn the event this information is protected by the Federal Confidentiality of Alcohol and Drug Abuse Patient Records regulations: The Federal rules restrict any use of the information to criminally investigate or prosecute any alcohol or drug abuse patient.[facility] HospitalIn the event this information is protected by the Federal Confidentiality of Alcohol and Drug Abuse Patient Records regulations: The Federal rules restrict any use of the information to criminally investigate or prosecute any alcohol or drug abuse patient.[facility] HospitalIn the event this information is protected by the Federal Confidentiality of Alcohol and Drug Abuse Patient Records regulations: The Federal rules restrict any use of the information to criminally investigate or prosecute any alcohol or drug abuse patient.[facility] HospitalIn the event this information is protected by the Federal Confidentiality of Alcohol and Drug Abuse Patient Records regulations: The Federal rules restrict any use of the information to criminally investigate or prosecute any alcohol or drug abuse patient.[facility] HospitalIn the event this information is protected by the Federal Confidentiality of Alcohol and Drug Abuse Patient Records regulations: The Federal rules restrict any use of the information to criminally investigate or prosecute any alcohol or drug abuse patient.[facility] HospitalIn the event this information is protected by the Federal Confidentiality of Alcohol and Drug Abuse Patient Records regulations: The Federal rules restrict any use of the information to criminally investigate or prosecute any alcohol or drug abuse patient.[facility] HospitalIn the event this information is protected by the Federal Confidentiality of Alcohol and Drug Abuse Patient Records regulations: The Federal rules restrict any use of the information to criminally investigate or prosecute any alcohol or drug abuse patient.[facility] Reason for Visit (unrecogniz ed section and content) Reason Comments Physical Therapy Specialty Diagnoses / Procedures Referred By Hipolito pearce Referred To Contact [facility] Diagnoses Acute pain of left knee Procedures CONSULT TO PHYSICAL THERAPY PHYSICAL THERAPY EVALUATION HIGH COMPLEX 45 MINS Lisa Rodríguez PA-C [address] [place] [address] [facility] [address] [address] Referral ID Status Reason Start Date Expiration Date Visits Requested Visits Authorized [id number] Authorized Auto-Generat ed Referral 05/14/2024 05/13/2025 60 60 Reason Onset Date Comments Outpatient Colonoscopy 10/31/2021 Reason Comments Consult colonoscopy Reason Comments Results Reason Comments Discussion Referral to [facility] medicine; discuss results of labs/imaging done on 2/3 Reason Comments Results Reason Comments Vaginal Problem L armpit x 2 weeks; tried otc cortisone cream and candex Reason Comments LESION, SKIN Reason Comments Obesity Reason Comments Refill Request Reason Comments Eating Disorders Reason Comments Obesity Weight Loss Surgery Reason Comments EKG Specialty Diagnoses / Procedures Referred By Hipolito t Referred To Contact [facility] Diagnoses Class 3 severe obesity with serious comorbidity and body mass index (BMI) of 40.0 to 44.9 in adult, unspecified obesity type (HCC) Procedures ECG COMPLETE ECG ROUTINE ECG W/LEAST 12 LDS W/I&R Zeenat Fowler, ICE BAG ASSEMBLER.CAREER SERVICES OFFICER [id number] [place] [address] Referral ID Status Reason Start Date Expiration Date V isits Requested Visits Authorized [id number] Closed Auto-Generate d Referral 02/05/2023 02/05/2024 1 1 Reason Comments Radiology US Specialty Diagnoses / Procedures Referred By Contac t Referred To Contact US IMAGING Diagnoses Elevated liver enzymes Procedures US ABD RT UPPER QUADRANT US ABDOMINAL REAL TIME W/IMAGE LIMITED Brigette Martin, ICE BAG ASSEMBLER.CAREER SERVICES OFFICER [address] [place] [address] Us Imaging [id number] Referral ID Status Reason Start Date Expiration Date V isits Requested Visits Authorized [id number] Closed Auto-Generate d Referral 06/14/2022 07/14/2023 1 1 Reason Comments Reassessment Patient Education Reason Comments Schedule Surgery Reason Comments Patient Education Reassessment Reason Comments Preparations For Surgery Reason Comments Follow Up Reason Comments Acute Visit Sneezing, sinuses fe el swollen, sore throat, headache, itcy/watery eyes Reason Comments Yearly Exam Reason Comments Orders Reason Comments Spirometry Specialty Diagnoses / Procedures Referred By Contac t Referred To Contact [facility] Diagnoses Mild intermittent asthma without complication Procedures SPIROMETRY - BASELINE AND POST DILATOR BRNCDILAT RSPSE SPMTRY PRE&POST-BRNCDILAT ADMN Brigette Martin, ICE BAG ASSEMBLER.CAREER SERVICES OFFICER [address] [place] [address] [facility] [address] [place] [id number] Referral ID Status Reason Start Date Expiration Date V isits Requested Visits Authorized [id number] Closed Auto-Generate d Referral 09/19/2023 10/18/2024 1 1 Reason Comments Cough Reason Comments Follow Up Weight Loss Surgery Reason Comments Acute Visit Nasal congestion, fa cial pressure and pain, cough x 1 week Shoulder Injury Left x 2 weeks, sees chiropractor, asking for a muscle relaxer, no injury Reason Comments Neck Pain Pain (Shoulder Pain) left Reason Comments Follow Up 2 week cerical radic ulopathy Reason Comments Back Pain Medication follow up Reason Comments Knee Pain Left knee pain and s welling for 3 days Reason Comments New Knee Pain Referred by Rosalina Pepper Specialty Diagnoses / Procedures Referred By Contac t Referred To Contact Orthopedics Diagnoses Acute pain of left knee Procedures CONSULT PANEL TO ORTHOPAEDICS OFFICE/OUTPATIENT [facility] 60 MINUTES Remedios Pepper, ICE BAG ASSEMBLER.CAREER SERVICES OFFICER [address] [place] [address] Referral ID Status Reason Start Date Expiration Date V isits Requested Visits Authorized [id number] Closed PCP Requested Referral 05/15/2024 05/15/2025 1 1 Reason Comments Follow Up Weight Loss Surgery Reason Comments PT Eval Reason Comments Appointment Orders Reason Comments ER F/U [facility] ER 06/07 dx:verti go; meclizine not working; using flonase and antihistamines; has been doing regina at home without relief Reason Comments Localized Skin Check Specialty Diagnoses / Procedures Referred By Contac t Referred To Contact Plastic Surgery Diagnoses Rash and nonspecific skin eruption Intertrigo S/P laparoscopic sleeve gastrectomy Obesity, Class I, BMI 30.0-34.9 (see actual BMI) Procedures CONSULT TO PLASTIC SURGERY OFFICE/OUTPATIENT [facility] 60 MINUTES Elana Noel MD [address] [place] [address] Phone: tel: fax: Referral ID Status Reason Start Date Expiration Date V isits Requested Visits Authorized [id number] Closed PCP Requested Referral 05/22/2024 08/20/2024 1 1 Reason Comments Knee Pain Injections Established Patient Swelling Reason Comments Consult hernia Specialty Diagnoses / Procedures Referred By Contac t Referred To Contact General Surgery Diagnoses Umbilical hernia without obstruction or gangrene Procedures CONSULT TO GENERAL SURGERY OFFICE/OUTPATIENT [facility] 60 MINUTES Brigette Martin, ICE BAG ASSEMBLER.CAREER SERVICES OFFICER [address] [place] [address] Phone: tel: fax: Referral ID Status Reason Start Date Expiration Date V isits Requested Visits Authorized [id number] Closed PCP Requested Referral 09/05/2024 09/05/2025 [address] Specialty Diagnoses / Procedures Referred By Contac t Referred To Contact CT IMAGING Diagnoses Incisional hernia, without obstruction or gangrene Procedures CT ABD/PEL W IVCON CT ABD & PELVIS W/CONTRAST Leora Ha MD [address] [place] [address] Phone: tel: fax: [place] [id number] Referral ID Status Reason Start Date Expiration Date V isits Requested Visits Authorized [id number] Closed Auto-Generate d Referral 09/19/2024 05/13/2025 1 1 Reason Comments Patient Update Orders Reason Comments Follow Up Ct 09/23/2024 Reason Comments Pain R side rib pain, upp er area under R breasts and into back x last night Reason Comments Recheck Follow up from [facility] C are visit on 11/07; pain is not getting any better; difficulty laying down Reason Comments LESION, SKIN Right thigh Reason Comments Consult Specialty Diagnoses / Procedures Referred By Contac t Referred To Contact General Surgery Diagnoses Diastasis recti Umbilical hernia without obstruction and without gangrene Procedures OFFICE/OUTPATIENT NEW HIGH MDM 60 MINUTES Leora Ha MD [address] [place] [address] Phone: tel: fax: Vik Henderson MD [address] [place] [address] Phone: tel: fax: Referral ID Status Reason Start Date Expiration Date V isits Requested Visits Authorized [id number] Closed PCP Requested Referral 10/21/2024 10/21/2025 1 1 Reason Comments New Knee Pain Injections Reason Comments Full Body Skin Check Reason Comments PHOTOS TAKEN Reason Comments Consult Care Teams (unrecognized sec tion and content) Hose Tender Relationship Specialty Start Date End Date Brigette Martin, ICE BAG ASSEMBLER.CAREER SERVICES OFFICER [address] [place] [address] PCP - General Family Practice 11/08/20 Hose Tender Relationship Specialty Start Date End Date Brigette Martin, ICE BAG ASSEMBLER.CAREER SERVICES OFFICER [address] [place] [address] PCP - General Family Practice 11/08/20 Hose Tender Relationship Specialty Start Date End Date Brigette Martin, ICE BAG ASSEMBLER.CAREER SERVICES OFFICER [address] [place] [address] PCP - General Family Practice 11/08/20 Hose Tender Relationship Specialty Start Date End Date Brigette Martin, ICE BAG ASSEMBLER.CAREER SERVICES OFFICER [address] [place] [address] PCP - General Family Practice 11/08/20 Hose Tender Relationship Specialty Start Date End Date Brigette Martin, ICE BAG ASSEMBLER.CAREER SERVICES OFFICER [address] [place] [address] PCP - General Family Medicine 11/08/20 Hose Tender Relationship Specialty Start Date End Date Brigette Martin, ICE BAG ASSEMBLER.CAREER SERVICES OFFICER [address] [place] [address] PCP - General Family Medicine 11/08/20 Hose Tender Relationship Specialty Start Date End Date Brigette Martin, ICE BAG ASSEMBLER.CAREER SERVICES OFFICER [address] [place] [address] PCP - General Family Medicine 11/08/20 Hose Tender Relationship Specialty Start Date End Date Brigette Martin, ICE BAG ASSEMBLER.CAREER SERVICES OFFICER [address] [place] [address] PCP - General Family Medicine 11/08/20 Hose Tender Relationship Specialty Start Date End Date Brigette Martin, ICE BAG ASSEMBLER.CAREER SERVICES OFFICER [address] [place] [address] PCP - General Family Medicine 11/08/20 Hose Tender Relationship Specialty Start Date End Date Brigette Martin, ICE BAG ASSEMBLER.CAREER SERVICES OFFICER [address] [place] [address] PCP - General Family Medicine 11/08/20 Hose Tender Relationship Specialty Start Date End Date Brigette Martin, ICE BAG ASSEMBLER.CAREER SERVICES OFFICER [address] [place] [address] PCP - General Family Medicine 11/08/20 Hose Tender Relationship Specialty Start Date End Date Brigette Martin, ICE BAG ASSEMBLER.CAREER SERVICES OFFICER [address] [place] [address] PCP - General Family Medicine 11/08/20 Hose Tender Relationship Specialty Start Date End Date Brigette Martin, ICE BAG ASSEMBLER.CAREER SERVICES OFFICER [address] [place] [address] PCP - General Family Medicine 11/08/20 Hose Tender Relationship Specialty Start Date End Date Brigette Martin, ICE BAG ASSEMBLER.CAREER SERVICES OFFICER [address] [place] [address] PCP - General Family Medicine 11/08/20 Team Status: Active Member Role Status Dates Dr. Johanny Vivas MD Family Provider Active Brigette Martin ANESTHESIOLOGY FACULTY, ANESTHESIOLOGY FACULTY-C Primary Care Provider Active Team Status: Inactive Member Role Status Dates Brigette Martin ANESTHESIOLOGY FACULTY, ANESTHESIOLOGY FACULTY-C Primary Care Provider, Referri ng Provider Active Dr. Thomas Andrew DO Attending Provider Active Team Status: Inactive Member Role Status Dates Brigette Martin ANESTHESIOLOGY FACULTY, ANESTHESIOLOGY FACULTY-C Primary Care Provider Active Dr. Thomas Andrew DO Attending Provider, Referring Provider Active Hose Tender Relationship Specialty Start Date End Date Brigette Martin, ICE BAG ASSEMBLER.CAREER SERVICES OFFICER [address] [place] [address] PCP - General Family Medicine 11/08/20 Hose Tender Relationship Specialty Start Date End Date Brigette Martin, ICE BAG ASSEMBLER.CAREER SERVICES OFFICER [address] [place] [address] PCP - General Family Medicine 11/08/20 Hose Tender Relationship Specialty Start Date End Date Brigette Martin, ICE BAG ASSEMBLER.CAREER SERVICES OFFICER [address] [place] [address] PCP - General Family Medicine 11/08/20 Hose Tender Relationship Specialty Start Date End Date Brigette Martin, ICE BAG ASSEMBLER.CAREER SERVICES OFFICER [address] [place] [address] PCP - General Family Medicine 11/08/20 Hose Tender Relationship Specialty Start Date End Date Brigette Martin, ICE BAG ASSEMBLER.CAREER SERVICES OFFICER [address] [place] [address] PCP - General Family Medicine 11/08/20 Hose Tender Relationship Specialty Start Date End Date Brigette Martin, ICE BAG ASSEMBLER.CAREER SERVICES OFFICER [address] [place] [address] PCP - General Family Medicine 11/08/20 Hose Tender Relationship Specialty Start Date End Date Brigette Martin, ICE BAG ASSEMBLER.CAREER SERVICES OFFICER [address] [place] [address] PCP - General Family Medicine 11/08/20 Hose Tender Relationship Specialty Start Date End Date Brigette Martin, ICE BAG ASSEMBLER.CAREER SERVICES OFFICER [address] [place] [address] PCP - General Family Medicine 11/08/20 Hose Tender Relationship Specialty Start Date End Date Brigette Martin, ICE BAG ASSEMBLER.CAREER SERVICES OFFICER [address] [place] [address] PCP - General Family Medicine 11/08/20 Hose Tender Relationship Specialty Start Date End Date Brigette Martin, ICE BAG ASSEMBLER.CAREER SERVICES OFFICER [address] [place] [address] PCP - General Family Medicine 11/08/20 Hose Tender Relationship Specialty Start Date End Date Brigette Martin, ICE BAG ASSEMBLER.CAREER SERVICES OFFICER [address] [place] [address] PCP - General Family Medicine 11/08/20 Hose Tender Relationship Specialty Start Date End Date Brigette Martin, ICE BAG ASSEMBLER.CAREER SERVICES OFFICER [address] [place] [address] PCP - General Family Medicine 11/08/20 Hose Tender Relationship Specialty Start Date End Date Brigette Martin, ICE BAG ASSEMBLER.CAREER SERVICES OFFICER [address] [place] [address] PCP - General Family Medicine 11/08/20 Hose Tender Relationship Specialty Start Date End Date Brigette Martin, ICE BAG ASSEMBLER.CAREER SERVICES OFFICER [address] [place] [address] PCP - General Family Medicine 11/08/20 Hose Tender Relationship Specialty Start Date End Date Brigette Martin, ICE BAG ASSEMBLER.CAREER SERVICES OFFICER [address] [place] [address] PCP - General Family Medicine 11/08/20 Hose Tender Relationship Specialty Start Date End Date Brigette Martin, ICE BAG ASSEMBLER.CAREER SERVICES OFFICER [address] [place] [address] PCP - General Family Medicine 11/08/20 Hose Tender Relationship Specialty Start Date End Date Brigette Martin, ICE BAG ASSEMBLER.CAREER SERVICES OFFICER [address] [place] [address] PCP - General Family Medicine 11/08/20 Hose Tender Relationship Specialty Start Date End Date Brigette Martin, ICE BAG ASSEMBLER.CAREER SERVICES OFFICER [address] [place] [address] PCP - General Family Medicine 11/08/20 Hose Tender Relationship Specialty Start Date End Date Brigette Martin, ICE BAG ASSEMBLER.CAREER SERVICES OFFICER [address] [place] [address] PCP - General Family Medicine 11/08/20 Hose Tender Relationship Specialty Start Date End Date Brigette Martin, ICE BAG ASSEMBLER.CAREER SERVICES OFFICER [address] [place] [address] PCP - General Family Medicine 11/08/20 Hose Tender Relationship Specialty Start Date End Date Brigette Martin, ICE BAG ASSEMBLER.CAREER SERVICES OFFICER [address] [place] [address] PCP - General Family Medicine 11/08/20 Hose Tender Relationship Specialty Start Date End Date Brigette Martin, ICE BAG ASSEMBLER.CAREER SERVICES OFFICER [address] [place] [address] PCP - General Family Medicine 11/08/20 Hose Tender Relationship Specialty Start Date End Date Brigette Martin, ICE BAG ASSEMBLER.CAREER SERVICES OFFICER [address] [place] [address] PCP - General Family Medicine 11/08/20 Hose Tender Relationship Specialty Start Date End Date Brigette Martin, ICE BAG ASSEMBLER.CAREER SERVICES OFFICER [address] [place] [address] PCP - General Family Medicine 11/08/20 Hose Tender Relationship Specialty Start Date End Date Brigette Martin, ICE BAG ASSEMBLER.CAREER SERVICES OFFICER [address] [place] [address] PCP - General Family Medicine 11/08/20 Hose Tender Relationship Specialty Start Date End Date Brigette Martin, ICE BAG ASSEMBLER.CAREER SERVICES OFFICER [address] [place] [address] PCP - General Family Medicine 11/08/20 Hose Tender Relationship Specialty Start Date End Date Brigette Martin, ICE BAG ASSEMBLER.CAREER SERVICES OFFICER [address] [place] [address] PCP - General Family Medicine 11/08/20 Hose Tender Relationship Specialty Start Date End Date Brigette Martin, ICE BAG ASSEMBLER.CAREER SERVICES OFFICER [address] [place] [address] PCP - General Family Medicine 11/08/20 Hose Tender Relationship Specialty Start Date End Date Brigette Martin, ICE BAG ASSEMBLER.CAREER SERVICES OFFICER [address] [place] [address] PCP - General Family Medicine 11/08/20 Hose Tender Relationship Specialty Start Date End Date Brigette Martin, ICE BAG ASSEMBLER.CAREER SERVICES OFFICER [address] [place] [address] PCP - General Family Medicine 11/08/20 Remedios Pepper, ICE BAG ASSEMBLER.CAREER SERVICES OFFICER [address] [place] [address] Retouching Operator Family Medicine 04/20/24 Javed Han MD [address] [place] [address] Retouching Operator Family Medicine 04/20/24 Hose Tender Relationship Specialty Start Date End Date Brigette Martin, ICE BAG ASSEMBLER.CAREER SERVICES OFFICER [address] [facility] [place] [address] PCP - General Family Medicine 11/08/20 Remedios Pepper APRN.CAREER SERVICES OFFICER [address] [place] [address] Retouching Operator Family Medicine 04/20/24 Javed Han MD [address] [place] [address] Retouching Operator Family Medicine 04/20/24 Hose Tender Relationship Specialty Start Date End Date Brigette Martin APRN.CAREER SERVICES OFFICER [address] [place] [address] PCP - General Family Medicine 11/08/20 Remedios Pepper APRN.CAREER SERVICES OFFICER [address] [place] [address] Retouching Operator Family Medicine 04/20/24 Javed Han MD [address] [place] [address] Retouching Operator Family Medicine 04/20/24 Hose Tender Relationship Specialty Start Date End Date Brigette Martin APRN.CAREER SERVICES OFFICER [address] [place] [address] PCP - General Family Medicine 11/08/20 Remedios Pepper APRN.CAREER SERVICES OFFICER [address] [place] [address] Retouching Operator Family Medicine 04/20/24 Javed Han MD [address] [place] [address] Retouching Operator Family Medicine 04/20/24 Hose Tender Relationship Specialty Start Date End Date Brigette Martin APRN.CAREER SERVICES OFFICER [address] [facility] [address] PCP - General Family Medicine 11/08/20 Remedios Pepper ICE BAG ASSEMBLER.CAREER SERVICES OFFICER [address] [place] [address] Retouching Operator Family Medicine 04/20/24 Javed Han MD [address] [facility] [place] [address] [facility] 04/[facility] Hose Tender Relationship Specialty Start Date End Date Brigette Martin APRN.CAREER SERVICES OFFICER [address] [facility] [place] [address] PCP - General Family Medicine 11/08/20 Remedios Pepper ICE BAG ASSEMBLER.CAREER SERVICES OFFICER [address] [place] [address] Retouching Operator Family Medicine 04/20/24 Javed Han MD [address] [facility] [place] [address] Retouching Operator Family Medicine 04/20/24 Hose Tender Relationship Specialty Start Date End Date Brigette Martin ICE BAG ASSEMBLER.CAREER SERVICES OFFICER [address] [facility] [place] [address] PCP - General Family Medicine 11/08/20 Remedios Pepper ICE BAG ASSEMBLER.CAREER SERVICES OFFICER [address] [facility] [place] [address] Retouching Operator Family [facility] 04/20/24 Javed Han MD [address] [place] [address] [facility] Medicine 04/20/24 Hose Tender Relationship Specialty Start Date End Date Brigette Martin, ICE BAG ASSEMBLER.CAREER SERVICES OFFICER [address] [place] [address] PCP - General Family Medicine 11/08/20 Remedios Pepper APRN.CAREER SERVICES OFFICER [address] [place] [address] [facility] Medicine 04/20/24 Javed Han MD [address] [facility] [place] [address] [facility] Medicine 04/20/24 Hose Tender Relationship Specialty Start Date End Date Brigette Martin, ICE BAG ASSEMBLER.CAREER SERVICES OFFICER [address] [facility] [place] [address] PCP - General Family Medicine 11/08/20 Remedios Pepper APRN.CAREER SERVICES OFFICER [address] [facility] [place] [address] Retouching Operator Family Medicine 04/20/24 Javed Han MD [address] [place] [address] [facility] Medicine 04/20/24 Hose Tender Relationship Specialty Start Date End Date Brigette Martin, ICE BAG ASSEMBLER.CAREER SERVICES OFFICER [address] [place] [address] PCP - General Family Medicine 11/08/20 Remedios Pepper APRN.CAREER SERVICES OFFICER [address] [place] [address] Retouching Operator Family Medicine 04/20/24 Javed Han MD [address] [place] [address] Retouching Operator Family Medicine 04/20/24 Hose Tender Relationship Specialty Start Date End Date Brigette Martin APRN.CAREER SERVICES OFFICER [address] [facility] [place] [address] PCP - General Family Medicine 11/08/20 Remedios Pepper APRN.CAREER SERVICES OFFICER [address] [place] [address] Retouching Operator Family Medicine 04/20/24 Javed Han MD [address] [place] [address] Retouching Operator Family Medicine 04/20/24 Hose Tender Relationship Specialty Start Date End Date Brigette Martin APRN.CAREER SERVICES OFFICER [address] [place] [address] PCP - General Family Medicine 11/08/20 Remedios Pepper ICE BAG ASSEMBLER.CAREER SERVICES OFFICER [address] [place] [address] Retouching Operator Family Medicine 04/20/24 Javed Han MD [address] [place] [address] Retouching Operator Family Medicine 04/20/24 Hose Tender Relationship Specialty Start Date End Date Brigette Martin APRN.CAREER SERVICES OFFICER [address] [place] [address] PCP - General Family Medicine 11/08/20 Hose Tender Relationship Specialty Start Date End Date Brigette Martin, ICE BAG ASSEMBLER.CAREER SERVICES OFFICER [address] [place] [address] PCP - General Family Medicine 11/08/20 Hose Tender Relationship Specialty Start Date End Date Brigette Martin, ICE BAG ASSEMBLER.CAREER SERVICES OFFICER [address] [place] [address] PCP - General Family Medicine 11/08/20 Hose Tender Relationship Specialty Start Date End Date Brigette Martin, ICE BAG ASSEMBLER.CAREER SERVICES OFFICER [address] [place] [address] PCP - General Family Medicine 11/08/20 Hose Tender Relationship Specialty Start Date End Date Brigette Martin, ICE BAG ASSEMBLER.CAREER SERVICES OFFICER [address] [place] [address] PCP - General Family Medicine 11/08/20 Hose Tender Relationship Specialty Start Date End Date Brigette Martin, ICE BAG ASSEMBLER.CAREER SERVICES OFFICER [address] [place] [address] PCP - General Family Medicine 11/08/20 Hose Tender Relationship Specialty Start Date End Date Brigette Martin, ICE BAG ASSEMBLER.CAREER SERVICES OFFICER [address] [place] [address] PCP - General Family Medicine 11/08/20 Hose Tender Relationship Specialty Start Date End Date Brigette Martin, ICE BAG ASSEMBLER.CAREER SERVICES OFFICER [address] [place] [address] PCP - General Family Medicine 11/08/20 Hose Tender Relationship Specialty Start Date End Date Brigette Martin, ICE BAG ASSEMBLER.CAREER SERVICES OFFICER [address] [place] [address] PCP - General Family Medicine 11/08/20 Hose Tender Relationship Specialty Start Date End Date Brigette Martin, ICE BAG ASSEMBLER.CAREER SERVICES OFFICER [address] [place] [address] PCP - General Family Medicine 11/08/20 Hose Tender Relationship Specialty Start Date End Date Brigette Martin, ICE BAG ASSEMBLER.CAREER SERVICES OFFICER [address] [place] [address] PCP - General Family Medicine 11/08/20 Hose Tender Relationship Specialty Start Date End Date Brigette Martin, ICE BAG ASSEMBLER.CAREER SERVICES OFFICER [address] [place] [address] PCP - General Family Medicine 11/08/20 Hose Tender Relationship Specialty Start Date End Date Brigette Martin, ICE BAG ASSEMBLER.CAREER SERVICES OFFICER [address] [place] [address] PCP - General Family Medicine 11/08/20 Hose Tender Relationship Specialty Start Date End Date Brigette Martin, ICE BAG ASSEMBLER.CAREER SERVICES OFFICER [address] [place] [address] PCP - General Family Medicine 11/08/20 Hose Tender Relationship Specialty Start Date End Date Brigette Martin, ICE BAG ASSEMBLER.CAREER SERVICES OFFICER [address] [place] [address] PCP - General Family Medicine 11/08/20 Hose Tender Relationship Specialty Start Date End Date Brigette Martin, ICE BAG ASSEMBLER.CAREER SERVICES OFFICER [address] [place], [place] [address] PCP - General Family Medicine 11/08/20 Team Status: Active Member Role/Relationship Status Dates Brigette Martin ANESTHESIOLOGY FACULTY, ANESTHESIOLOGY FACULTY-C Primary Care Provider Active Team Status: Inactive Member Role/Relationship Status Dates Brigette Martin ANESTHESIOLOGY FACULTY, ANESTHESIOLOGY FACULTY-C Primary Care Provider Active Start: December 24, 2024 End: December 24, 2024 Brigette Martin ANESTHESIOLOGY FACULTY, ANESTHESIOLOGY FACULTY-C Referring Provider Active Start: December 24, 2024 End: December 24, 2024 Dr. Guzman Friend , DO Attending Provider Active Start: December 24, 2024 End: December 24, 2024 Hose Tender Relationship Specialty Start Date End Date Brigette Martin, ICE BAG ASSEMBLER.CAREER SERVICES OFFICER [address] [place], [place] [address] PCP - General Family Medicine 11/08/20 Hose Tender Relationship Specialty Start Date End Date rBigette Martin, ICE BAG ASSEMBLER.CAREER SERVICES OFFICER [address] [place], [place] [address] PCP - General Family Medicine 11/08/20 Hose Tender Relationship Specialty Start Date End Date Brigette Martin, ICE BAG ASSEMBLER.CAREER SERVICES OFFICER [address] [place], [place] [address] PCP - General Family Medicine 11/08/20 Hose Tender Relationship Specialty Start Date End Date Brigette Martin, ICE BAG ASSEMBLER.CAREER SERVICES OFFICER [address] [place], [place] [address] PCP - General Family Medicine 11/08/20 INFORMATION SOURCE (unrecogn ized section and content) DATE CREATED AUTHOR 06/16/2022 [facility] DATE CREATED AUTHOR AUTHOR'S ORGANIZ ATION 01/01/2025 [facility] DATE CREATED AUTHOR AUTHOR'S ORGANIZ ATION 03/21/2025 [facility] Goals (unrecognized section and content) Goals may be documented in a n alternate sectionGoals may be documented in an alternate sectionGoals may be documented in an alternate sectionGoals may be documented in an alternate section FOR RECORDS PERTAINING TO PATIENTS WHO ARE OR HAVE BEEN ENROLLED IN A CHEMICAL DEPENDENCY/SUBSTANCEABUSE PROGRAM, SOME INFORMATION MAY BE OMITTED. This clinical summary was aggregated from multiple sources. Caution should be exercised in using it in the provision of clinical care. This summary normalizes information from multiple sources, and as a consequence, information in this document may materially change the coding, format and clinical context of patient data. In addition, data may be omitted in some cases. CLINICAL DECISIONS SHOULD BE BASED ON THE PRIMARY CLINICAL RECORDS. [facility] [employer] [facility]. provides no warranty or guarantee of the accuracy or completeness of information in this document.
== END | disposition home or self-care (01) ==
LOC: US 07:31
PROVIDERS: PCP Registered Nurse; Referring Provider Internal Medicine Gastroenterology; Visit Provider Internal Medicine Gastroenterology
DX: K76.0 Fatty (change of) liver, not elsewhere classified (principal)
CPT/HCPCS: 76705; 76981

== ENCOUNTER 2025-05-04 14:02 | Emergency (ER) | payer OTHER, SELFPAY ==
[2025-05-04] VITALS (11 sets, daily range): BP systolic 136–164; BP diastolic 74–96; PULSE 58–82; RESP 16–18; TEMP 37.1–37.2; O2SAT 98–100; BMI 29.7
[2025-05-04 15:43] LABS: Hematocrit 46.6 % (37-47); Hemoglobin 15.5 g/dL (12.0-15.0); Immature Granulocytes Count 0.030 X10^3/uL (0.0-0.0); Mean Corp Hgb Conc 33.3 g/dL (32-36); Mean Corpuscular Volume 89.8 fL (81-99); Mean Platelet Vol. 10.1 fl (6.2-12.0); NRBC Flagged by Analyzer 0 % (0-5); Platelet Count 293 K/mm3 (150-450); RBC Distribution Width CV 12.1 % (11.6-14.6); RBC Distribution Width SD 39.8 fl (35.1-43.9); Red Blood Count 5.19 M/mm3 (4.2-5.4); White Blood Count 7.9 K/mm3 (4.4-11.0)
[2025-05-04 15:46] LABS: Mucous, Urine 0 SEEN /hpf (<or=2+); Squamous Epithelial Cells - UA 0 SEEN /hpf (5-10)
[2025-05-04 15:57] LABS: Color, Urine Amber (Yellow); Glucose, Dipstick Normal (Normal); Ketone-Dipstick 15 mg/dl (Negative); Leukocyte Esterase-Dipstick 25 /ul (Negative); Nitrite-Dipstick Negative (Negative); Occult Blood-Urine 250 /ul (Negative); Protein-Dipstick 100 mg/dl (Negative); Specific Gravity, Urine 1.015 (1.002-1.030); Urine Bilirubin Dipstick Negative (Negative)
[2025-05-04 16:25] LABS: Red Blood Cells-Urine > 100 SEEN /hpf (0-5)
[2025-05-04 16:41] LABS: AST(SGOT) 14 U/L (<=31); Alanine Aminotransfer ALT/SGPT 10 U/L (<=34); Albumin, Serum 4.5 g/dL (3.5-5.0); Alkaline Phosphatase 71 U/L (35-104); Anion Gap 14 (7-18); BUN 11 mg/dL (4-19); BUN/Creat Ratio 11.6 RATIO (10-20); Calcium,Total 9.7 mg/dL (7.6-11.0); Carbon Dioxide 25.6 mmol/L (20.0-29.0); Chloride 102 mmol/L (96-106); Estimated Creatinine Clearance 75.37 ml/min (50-250); Globulin 2.8 g/dL (2.2-4.2); Glucose 91 mg/dL (70-99); Lipase 20 U/L (13-75); Potassium 4.0 mmol/L (3.5-5.1)
[2025-05-04] MEDS: 0.9% Normal Saline (1000mL) 1,000 ML 999 ML IV (20:48)
--- NOTE | 2025-05-04 20:55 | CT_ITS ---
PROCEDURE: ABDOMEN/PELVIS W IV CONT ONLY 05/04/2025 REASON FOR EXAM: FLANK PAIN TECHNIQUE: Procedure Code: [id number] Modality: CT Procedure: ABDOMEN/PELVIS W IV CONT ONLY Coronal and Sagittal reconstruction series were provided. CONTRAST: Not specified VOLUME: 94 mL One or more dose reduction techniques were used (e.g., Automated exposure control, adjustment of the mA and/or kV according to patient size, use of iterative reconstruction technique. RADIATION DOSE SUMMARY: CTDlvol: 13+ 19 mGy DLP: 1014 mGycm FINDINGS: The lung bases are clear. Diastasis recti. L5-S1 fusion. Normal caliber abdominal aorta. Subcentimeter hypodense hepatic lesions that are too small to characterize. A left hepatic lobe cyst is present. Gallbladder is unremarkable. The pancreas, spleen, adrenals are unremarkable. Mild left hydronephrosis with left periureteral hyperenhancement. Left distal ureter 3 mm calculus. Normal caliber large and small bowel without surrounding inflammatory changes. CT/Abdomen/Pelvis W IV Cont ONLY IMPRESSION: Obstructing left distal ureteral calculus measuring approximately 3 mm with ass ociated mild left hydronephrosis and periureteral hyperenhancement, compatible with acute ureterolithiasis. No additional acute intra abdominal or pelvic abnormality identified. Reading [facility]
--- NOTE | 2025-05-04 22:00 | EDS_ITS ---
HPI History of Present Illness Chief Complaint: Abd Pain Narrative Narrative: Patient is a 49-year-old female with a past medical history of depression, anxiety, migraine headache, ALISHA, von Willebrand's disease who presented to the emergency department with a chief complaint of left flank pain and blood in her urine. She notes that the past few days she has had lower back pain and then noted that she developed blood in her urine. States that she went to urgent care and there was concern for a kidney stone therefore she was sent here to be further evaluated. Patient denies any fevers or chills [facility] Medical History Elevated LFTs Seasonal allergies Wears glasses Depression Anxiety Alcohol use Low iron Excessive bleeding Migraine headache Loss of consciousness Gastric reflux Former smoker Obstructive sleep apnea CPAP (continuous positive airway pressure) dependence Asthma History of wrist fracture Back pain Home Medications ?Medication ?Instructions ?Recorded ?Last Taken ?Type albuterol sulfate 90 mcg/actuation 1 - 2 puff inhalati on Q6H PRN PRN 01/16/19 01/31/21 08:00 History aerosol inhaler Sob &/Or Wheezing trazodone 50 mg tablet 25 - 150 mg PO QHS sleep 09/2901/31/21 08:00 History lorazepam 0.5 mg tablet 0.5 mg PO BID PRN PRN Anxiet y 12/13/20 Unknown History famotidine 20 mg tablet 20 mg PO BID 01/04/24 Unknow n History scopolamine base 1 mg over 3 days 1 patch transdermal Q3D #4 ea 06/27/24 Unknown Rx transdermal patch bupropion HCl 150 mg 24 hr tablet, 150 mg PO QAM 04/27 Unknown History extended release (Wellbutrin XL) escitalopram oxalate 20 mg tablet 20 mg PO DAILY 04/27 Unknown History (Lexapro) ondansetron HCl 4 mg tablet 4 mg PO Q6H PRN nausea and 04/27/25 Unknown Rx vomiting #90 tabs semaglutide (weight loss) 0.5 0.5 mg subcut QWEEK 04/13 10/05 Unknown History mg/0.5 mL subcutaneous pen injector (Wegovy) ursodiol 300 mg capsule 300 mg PO BID #60 caps 04/27 Unknown Rx ondansetron 4 mg disintegrating 4 mg PO Q6H PRN nausea and 05/04/25 Unknown Rx tablet vomiting #20 tabs oxycodone-acetaminophen 5 mg-325 1 tab PO Q6H PRN pain 3 days #12 05/04/25 Unknown Rx mg tablet (Endocet) tabs tamsulosin 0.4 mg capsule 0.4 mg PO DAILY #14 caps Unknown Rx Allergy/AdvReac Type Severity Reaction Status Date / Time pregabalin (From Lyrica) Allergy high bp Verified 05/04/25 14:06 Sulfa (Sulfonamide Allergy Hives Verified 05/04/25 14:06 Antibiotics) diphenhydramine (From AdvReac Mild SKIN Verified 05/04/25 14:06 Benadryl) adhesive tape (plastic tape) AdvReac Other Verified 05/04/25 14:06 Family History Father Hypertension Mother Migraines Sister Migraines Grandmother Diabetes Surgical History H/O wrist surgery History of hysterectomy History of tubal ligation History of tonsillectomy History of wisdom tooth extraction History of discectomy History of bilateral breast reduction surgery History of appendectomy Social History household members: children housing: house number of children: 3 current occupational status: employed 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: [employer] pets and animals: Yes pets and animals: cat(s) Smoking Status: Former smoker alcohol intake: current alcohol intake frequency: holidays/special occasions only substance use type: does not use what type of physical activity do you participate in: walking seatbelt use: always do you feel safe at home: Yes ROS ROS ED ROS Narrative Constitutional: Denies any fevers, chills, headaches Abdomen: Denies any nausea vomiting diarrhea : Denies urinary symptoms Neurological: Denies any numbness, weeks, tingling Musculoskeletal: Complains of left flank pain as noted above Skin: Denies any rashes or lesions EXAM Physical Exam Narrative Exam Narrative: General: Patient was lying in bed rest comfortably did not appear to be in acute distress Head: Atraumatic, normocephalic Eyes: PERRL bilaterally, EOMI bilaterally, no conjunctival injection noted Neck: Soft, supple, trachea midline Cardiovascular: Regular rate and rhythm Respiratory: Clear to auscultation bilaterally Abdomen: Soft, nondistended, no tenderness to palpation Extremities: +5/5 strength noted in the bilateral lower extremities Neurological: Patient following commands knew that she was at [facility] year is 2024 Skin: Warm, dry, intact no rashes or lesions noted Const Vital Signs: 05/04/25 14:03 05/04/25 19:41 05/04/25 20:52 Temperature 98.7 F Temperature Source Oral Pulse Rate 82 64 58 L Respiratory Rate 16 18 Blood Pressure 145/95 H 159/96 H Blood Pressure Mean 111 117 Pulse Ox 98 100 98 Oxygen Delivery Method Room Air Room Air 05/04/25 21:00 05/04/25 21:00 05/04/25 21:15 Temperature Temperature Source Pulse Rate Respiratory Rate Blood Pressure 136/74 H 136/74 H Blood Pressure Mean 91 91 Pulse Ox 99 100 Oxygen Delivery Method 05/04/25 21:30 05/04/25 21:45 05/04/25 22:00 Temperature Temperature Source Pulse Rate Respiratory Rate Blood Pressure 141/92 H 148/82 H Blood Pressure Mean 103 100 Pulse Ox 100 100 100 Oxygen Delivery Method MDM MDM MDM Narrative Medical decision making narrative: Patient is a 49-year-old female who presented to the emergency department concern for a kidney stone. On the differential diagnose includes but not limited to UTI, pyelonephritis, urolithiasis, AAA. Once the workup is obtained reviewed she will be reevaluated. Patient be given IV fluids, Zofran. Patient's CBC reviewed and showed a white blood count is normal at 7.9, hemoglobin 15.5, plate count of 293. Patient sodium was 142, potassium normal at 4, creatinine was noted to be 0.94. Patient's AST and ALT were 14 and 10 respectively lipase was noted be 20. Patient urinalysis showed 250 occult blood negative nitrites 25 leukocyte esterase greater than 100 red blood cells no white cells noted and no bacteria noted. Patient CT abdomen pelvis with IV contrast showed a obstructing left distal ureteral calculus measuring approximately 3 mm with associated mild left hydro nephrosis and periureteral hyperenhancement compatible with acute urolithiasis no additional acute findings noted. Discussed results with patient she would go home at this point time of note patient did have gastric bypass surgery therefore she can also not take NSAID. She will give prescription for Flomax, Zofran ODT, Endocet. She will be referred to urology and encouraged to return with worsening symptoms or concerns. She is agreeable to plan questions were answered she is discharged home in stable condition Lab Data Labs: Laboratory Results - last 24 hr 05/04/25 05/04/25 15:33 15:41 WBC 7.9 RBC 5.19 Hgb 15.5 H Hct 46.6 MCV 89.8 MCH 29.9 MCHC 33.3 RDW Std Deviation 39.8 RDW Coeff of Inessa 12.1 Plt Count 293 MPV 10.1 Immature Gran % (Auto) 0.400 Neut % (Auto) 69.0 Lymph % (Auto) 22.7 Gosper % (Auto) 5.7 Eos % (Auto) 1.6 Baso % (Auto) 0.6 Absolute Neuts (auto) 5.4 Absolute Lymphs (auto) 1.79 Nucleated RBC % 0 Sodium 142 Potassium 4.0 Chloride 102 Carbon Dioxide 25.6 Anion Gap 14 BUN 11 Creatinine 0.94 Estim Creat Clear Calc 75.37 Est GFR (MDRD) Non-Af 74 BUN/Creatinine Ratio 11.6 Glucose 91 Calcium 9.7 Total Bilirubin 0.44 AST 14 ALT 10 Alkaline Phosphatase 71 Total Protein 7.3 Albumin 4.5 Globulin 2.8 Albumin/Globulin Ratio 1.6 Lipase 20 Urine Color Yane Urine Clarity Cloudy Urine pH 6.0 Ur Specific [place] 1.015 Urine Protein 100 H Urine Glucose (UA) Normal Urine Ketones 15 H Urine Occult Blood 250 H Urine Nitrite Negative Urine Bilirubin Negative Urine Urobilinogen Normal Ur Leukocyte Esterase 25 H Urine RBC > 100 SEEN Urine WBC 0 SEEN Ur Squamous Epith Cells 0 SEEN Urine Bacteria 0 SEEN Urine Mucus 0 SEEN Radiography Diagnostic Testing: Clinical Impression(s) from Imaging Studies Abdomen/Pelvis CT 05/04/25 20:55 IMPRESSION: Obstructing left distal ureteral calculus measuring approximately 3 mm with associated mild left hydronephrosis and periureteral hyperenhancement, compatible with acute ureterolithiasis. No additional acute intra abdominal or pelvic abnormality identified. Reading [facility] [place] Discharge Plan Triage Chief Complaint: Abd Pain ED Provider: Dandre Laird Dx/Rx/DC Orders Clinical Impression: Flank pain, left side, Urolithiasis, H/O gastric bypass, History of von Willebrand's disease Prescriptions: New tamsulosin 0.4 mg capsule 0.4 mg PO DAILY Qty: 14 0RF oxycodone-acetaminophen [Endocet] 5-325 mg tablet 1 tab PO Q6H PRN (Reason: pain) 3 Days Qty: 12 0RF ondansetron 4 mg tablet,disintegrating 4 mg PO Q6H PRN (Reason: nausea and vomiting) Qty: 20 0RF No Action famotidine 20 mg tablet 20 mg PO BID scopolamine base 1 mg over 3 days patch 3 day 1 patch transdermal Q3D Qty: 4 1RF escitalopram oxalate [Lexapro] 20 mg tablet 20 mg PO DAILY bupropion HCl [Wellbutrin XL] 150 mg tablet extended release 24 hr 150 mg PO QAM Wegovy 0.5 mg/0.5 mL pen injector 0.5 mg subcut QWEEK Rx Instructions: administer weeks 5 through 8 of therapy ondansetron HCl 4 mg tablet 4 mg PO Q6H PRN (Reason: nausea and vomiting) Qty: 90 1RF ursodiol 300 mg capsule 300 mg PO BID Qty: 60 2RF trazodone 50 MG tablet 25 - 150 mg PO QHS Rx Instructions: 0.5-3 TAB AT BEDTIME albuterol sulfate 1 PUFF inhaler 1 - 2 puff inhalation Q6H PRN PRN (Reason: Sob &/Or Wheezing) lorazepam 0.5 mg tablet 0.5 mg PO BID PRN PRN (Reason: Anxiety) Primary Care Provider: Brigette Martin NP Referrals: Mandy Bailey MD [Med Staff - Active Staff, Urology] Brigette Martin NP, [employer] [Primary Care Provider, Medical] Activity Restrictions/Additional Instructions: Follow-up with the urologist that you were referred to. Take prescriptions as prescribed do not operate anything under the influence of the narcotic as it will make you sleepy and drowsy. Return with worsening symptoms or any concerns. Your CT did show evidence of a kidney stone. Print Language: Bulgarian Disposition Disposition: Home, Self Care
== END 2025-05-04 22:41 | disposition home or self-care (01) ==
PROVIDERS: Emergency Provider Emergency Medicine; PCP Registered Nurse; Visit Provider Emergency Medicine
DX: R10.A2 Flank pain, left side (principal); D68.00 Von Willebrand disease, unspecified; N13.2 Hydronephrosis with renal and ureteral calculous obstruction; Z87.891 Personal history of nicotine dependence; K21.9 Gastro-esophageal reflux disease without esophagitis; J45.909 Unspecified asthma, uncomplicated; Z98.84 Bariatric surgery status
CPT/HCPCS: 74177; 80053; 81001; 83690; 85025; 96374; 99283; Q9967; A4216; J2405